=== PATIENT | female | born 1955 | race Caucasian/White ===

== ENCOUNTER 2017-01-25 19:52 | Emergency (ER) | payer MEDICARE, OTHER ==
[2017-01-25] MEDS ORDERED: ACETAMINOPHEN TAB 500 MG TAB PO STA (20:11)
[2017-01-25] MEDS ORDERED: HYDROmorphone 1 MG/ML 1 ML SYRINGE IVP STA (20:11)
[2017-01-25] MEDS ORDERED: IBUPROFEN 600 MG TAB PO STA (20:11)
[2017-01-25] MEDS ORDERED: SODIUM CHLORIDE 0.9% 1,000 ML IV STA (20:11)
[2017-01-25] MEDS ORDERED: ONDANSETRON 4 MG/2 ML VIAL IVP STA (20:11)
[2017-01-25 20:45] LABS: Basophils % (A) 0 %; CHCM 32.1; Eosinophils # (A) 0.1 k/uL (0-0.7); Eosinophils % (A) 1 %; HCT 44.8 % (34.0-46.0); HDW 2.66; HGB 14.7 gm/dL (11.4-16.0); Luc # (Auto) 0.16; Luc % (Auto) 1; Lymphocytes # (A) 1.4 k/uL (1.0-4.8); Lymphocytes % (A) 11 %; MCH 32.8 pg (25.0-35.0); MCHC 32.8 g/dL (31.0-37.0); MCV 100.1 fL (80.0-100.0); Macrocytosis Slight; Mean Platelet Volume 8.3; Monocytes # (A) 0.8 k/uL (0-1.0); Monocytes % (A) 6 %; Neutrophils # (A) 10.4 k/uL (1.3-7.7); Neutrophils % (A) 81 %; RBC 4.48 m/uL (3.80-5.40); RDW 14.9 % (11.5-15.5); WBC 12.8 k/uL (3.8-10.6); WBC (Perox) 13.26
[2017-01-25 20:55] LABS: ALT 41 U/L (9-52); AST 20 U/L (14-36); Alkaline Phosphatase 78 U/L (38-126); Anion Gap 12 mmol/L; Blood Urea Nitrogen 28 mg/dL (7-17); Calcium 9.7 mg/dL (8.4-10.2); Carbon Dioxide 27 mmol/L (22-30); Chloride 101 mmol/L (98-107); Glucose 272 mg/dL (74-99); Non-African American GFR(MDRD) >60 (>60 ml/min/1.73 sqM); Potassium 4.6 mmol/L (3.5-5.1); Sodium 140 mmol/L (137-145); Total Bilirubin 0.8 mg/dL (0.2-1.3); Total Protein 6.4 g/dL (6.3-8.2)
[2017-01-25 20:57] LABS: Appearance,Urine Clear (Clear); Bacteria,Urine Rare /hpf; Bilirubin,Urine Negative (Negative); Glucose,Urine (UA) 4+ (Negative); Ketones,Urine 1+ (Negative); Leukocyte Esterase,Urine Moderate (Negative); Mucus,Urine Rare /hpf; Nitrite,Urine Negative (Negative); PH, Urine 5.5 (5.0-8.0); Particle Count 3409; Protein,Urine Negative (Negative); RBC,Urine 2 /hpf (0-5); Specific Gravity,Urine 1.021 (1.001-1.035); Squamous Epithelial Cell,Urine 2 /hpf (0-4); UA Billing (MACRO vs. MICRO) MICRO; Urobilinogen,Urine <2.0 mg/dL (<2.0); WBC,Urine 14 /hpf (0-5)
--- NOTE | 2017-01-25 22:03 | US ---
EXAMINATION TYPE: US venous doppler duplex LE LT DATE OF EXAM: 01/25/2017 9:51 PM COMPARISON: NONE CLINICAL HISTORY: Pain at ankle since today. 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 SIDE PERFORMED: Left TECHNIQUE: The lower extremity deep venous system is examined utilizing real time linear array sonog mariela with graded compression, doppler sonography and color-flow sonography. VESSELS IMAGED: External Iliac Vein (EIV) Common Femoral Vein Deep Femoral Vein Greater Saphenous Vein * Femoral Vein Popliteal Vein Small Saphenous Vein * Proximal Calf Veins (* superficial vessels) Hypoechoic slightly complex area in left popliteal fossa measuring 2.1 x 0.3 x 1.3 cm; possible gomez cyst versus other etiology. Left Leg: Negative for DVT Grayscale, color doppler, spectral doppler imaging performed of the deep veins of the lower extremiti es. There is normal flow, compressibility, vascular waveforms. IMPRESSION: 1. No sonographic evidence of deep venous thrombosis within the left lower extremity 2. Minimally complex popliteal cyst.
[2017-01-25] MEDS ORDERED: SULFAMETHOX-TMP 800-160MG 1 EACH TAB PO STA (22:33)
--- NOTE | 2017-01-25 22:33 | ED ---
Extremity Problem HPI - General Chief complaint: Extremity Problem,Nontraumatic Stated complaint: L foot swelling Time Seen by Provider: 01/25/17 20:04 Source: patient, family Mode of arrival: ambulatory Limitations: no limitations - History of Present Illness Initial comments: 61 year-old female patient presents to emergency department today for evaluation of left foot pain and swelling. Patient denies any injuries to the extremity. States the pain started this afternoon. She states that the leg feels hot, she is having difficulty walking due to the pain. Patient does have a past medical history significant for DVT. Patient states that a couple days ago she did have a lump appear on her foot, states that it got irritated by her shoe, she states that the lump has gone away. States she also has a wound on her toe however there does appear to be healing. She states that she feels generally achy and believes she may have a fever. She denies any numbness or tingling to the foot. Patient denies any recent rash, shortness breath, chest pain, abdominal pain, nausea, vomiting, diarrhea, constipation, back pain, numbness, tingling, dizziness, weakness, hematuria, dysuria, urinary urgency, urinary frequency, headache, visual changes, or any other complaints. - Related Data Home Medications Medication Instructions Recorded Confirmed Atorvastatin [Lipitor] 20 mg PO DAILY 08/08/15 01/25/17 HYDROcodone/APAP 10-325MG [[place] 1 tab PO Q6H PRN 08/08/15 01/25/17 10-325] Hydrochlorothiazide [Hydrodiuril] 25 mg PO DAILY 08/08/15 01/25/17 Ibuprofen [Motrin] 800 mg PO TID 08/08/15 01/25/17 Insulin Glargine [Lantus] 48 unit SQ DAILY 08/08/15 01/25/17 Levothyroxine Sodium [Unithroid] 150 mcg PO DAILY 08/08/15 01/25/17 Lisinopril 40 mg PO DAILY 08/08/15 01/25/17 Metoprolol Tartrate [Lopressor] 25 mg PO DAILY 08/08/15 01/25/17 buPROPion [Wellbutrin] 150 mg PO BID 08/08/15 01/25/17 metFORMIN HCL 1,000 mg PO BID 08/08/15 01/25/17 sitaGLIPtin PHOSPHATE [Januvia] 25 mg PO DAILY 01/25/17 01/25/17 Previous Rx's Medication Instructions Recorded Sulfamethoxazole/Trimethoprim 2 each PO BID #40 tablet 01/25/17 [Bactrim DS 800-160 mg] Allergies Allergy/AdvReac Type Severity Reaction Status Date / Time No Known Allergies Allergy Verified 01/25/17 20:14 Review of Systems ROS Statement: Those systems with pertinent positive or pertinent negative responses have been documented in the HPI. ROS Other: All systems not noted in ROS Statement are negative. Past Medical History Past Medical History: Diabetes Mellitus, Deep Vein Thrombosis (DVT), Hyperlipidemia, Hypertension, Osteoarthritis (OA), Thyroid Disorder Additional Past Medical History / Comment(s): DVT L Leg History of Any Multi-Drug Resistant Organisms: MRSA Date of last positivie culture/infection: 2013 MDRO Source:: armpit,stomach Past Surgical History: Hysterectomy, Orthopedic Surgery Additional Past Surgical History / Comment(s): Rectocele;hand,ankle and knee surg.; Past Anesthesia/Blood Transfusion Reactions: No Reported Reaction Past Psychological History: No Psychological Hx Reported Smoking Status: Former smoker Past Alcohol Use History: Rare Past Drug Use History: None Reported - Past Family History Brother(s) Family Medical History: Deep Vein Thrombosis (DVT) Mother Family Medical History: Coronary Artery Disease (CAD) Father Family Medical History: Diabetes Mellitus General Exam Limitations: no limitations General appearance: alert, in no apparent distress, other (Well-developed, well- nourished adult female patient in no acute distress. Vital signs upon presentation were temperature 101F, pulse 107, respirations 18, blood pressure 156/76, pulse ox 96% on room air.) Eye exam: Present: normal appearance, PERRL, EOMI. Absent: scleral icterus, conjunctival injection, periorbital swelling ENT exam: Present: normal exam, normal oropharynx, mucous membranes moist, TM's normal bilaterally Neck exam: Present: normal inspection. Absent: tenderness, meningismus, lymphadenopathy Respiratory exam: Present: normal lung sounds bilaterally. Absent: respiratory distress, wheezes, rales, rhonchi, stridor Cardiovascular Exam: Present: regular rate, normal rhythm, normal heart sounds. Absent: systolic murmur, diastolic murmur, rubs, gallop, clicks GI/Abdominal exam: Present: soft, normal bowel sounds. Absent: distended, tenderness, guarding, rebound, rigid Extremities exam: Present: full ROM, normal capillary refill, other (Erythema and tenderness noted to the dorsal aspect of the left foot and ankle. There is a scabbed lesion on the dorsal aspect of the third toe that does appear to be healing. Pedal and posttibial pulses intact and 2+. There is trace pitting edema over both the ankle and the foot. Skin is hot to touch, and warmer than the right foot. Cap refill less than 3 seconds. Full range of motion to the left ankle without limitation.). Absent: tenderness, pedal edema, joint swelling, calf tenderness Neurological exam: Present: alert, oriented X3, CN II-XII intact Psychiatric exam: Present: normal affect, normal mood Skin exam: Present: warm, dry, intact, normal color. Absent: rash Course Vital Signs 01/25/17 01/25/17 01/25/17 19:58 22:03 22:05 Temperature 101 F H 100.7 F H 100.6 F H Pulse Rate 107 H 97 95 Respiratory 18 18 18 Rate Blood Pressure 156/76 146/63 141/66 O2 Sat by Pulse 96 97 Oximetry Medical Decision Making - Medical Decision Making 61-year-old female patient presented for evaluation of left foot pain and swelling. Physical exam did reveal some erythema and swelling to the dorsal aspect of the left foot and ankle. Patient does have a history of DVT to the left leg so ultrasound was performed and was negative for any acute DVT. Did show possible Giron cyst, patient does not have any pain in this area. Vital signs reviewed she did have a white blood cell count 12.8, lactic of 3.0. She was given fluids here in the emergency department. Vital signs did improve prior to discharge. She will be discharged home with a prescription for Bactrim double strength 2 tablets twice daily for 10 days. She was started on this medication here. She does have [place] at home for pain control she is instructed to take this as well as ibuprofen for pain and fever control. She is instructed to follow-up with her primary care physician for recheck in 1-2 days. She is instructed to return here immediately for any new, worsening, or concerning symptoms. She verbalizes understanding and agrees this plan. - Lab Data Result diagrams: 01/25/17 20:33 01/25/17 20:33 Lab Results 01/25/17 01/25/17 01/25/17 Range/Units 20:33 20:33 20:33 WBC 12.8 H (3.8-10.6) k/uL RBC 4.48 (3.80-5.40) m/uL Hgb 14.7 (11.4-16.0) gm/dL Hct 44.8 (34.0-46.0) % MCV 100.1 H (80.0-100.0) fL MCH 32.8 (25.0-35.0) pg MCHC 32.8 (31.0-37.0) g/dL RDW 14.9 (11.5-15.5) % Plt Count 233 (150-450) k/uL Neutrophils % 81 % Lymphocytes % 11 % Monocytes % 6 % Eosinophils % 1 % Basophils % 0 % Neutrophils # 10.4 H (1.3-7.7) k/uL Lymphocytes # 1.4 (1.0-4.8) k/uL Monocytes # 0.8 (0-1.0) k/uL Eosinophils # 0.1 (0-0.7) k/uL Basophils # 0.0 (0-0.2) k/uL Macrocytosis Slight Sodium 140 (137-145) mmol/L Potassium 4.6 (3.5-5.1) mmol/L Chloride 101 (98-107) mmol/L Carbon Dioxide 27 (22-30) mmol/L Anion Gap 12 mmol/L BUN 28 H (7-17) mg/dL Creatinine 0.90 (0.52-1.04) mg/dL Est GFR (MDRD) Af Amer >60 (>60 ml/min/1.73 sqM) Est GFR (MDRD) Non-Af >60 (>60 ml/min/1.73 sqM) Glucose 272 H (74-99) mg/dL Plasma Lactic Acid Amrik 3.0 H* (0.7-2.0) mmol/L Calcium 9.7 (8.4-10.2) mg/dL Total Bilirubin 0.8 (0.2-1.3) mg/dL AST 20 (14-36) U/L ALT 41 (9-52) U/L Alkaline Phosphatase 78 (38-126) U/L Total Protein 6.4 (6.3-8.2) g/dL Albumin 4.0 (3.5-5.0) g/dL Urine Color Urine Appearance (Clear) Urine pH (5.0-8.0) Ur Specific [place] (1.001-1.035) Urine Protein (Negative) Urine Glucose (UA) (Negative) Urine Ketones (Negative) Urine Blood (Negative) Urine Nitrite (Negative) Urine Bilirubin (Negative) Urine Urobilinogen (<2.0) mg/dL Ur Leukocyte Esterase (Negative) Urine RBC (0-5) /hpf Urine WBC (0-5) /hpf Ur Squamous Epith Cells (0-4) /hpf Urine Bacteria (None) /hpf Urine Mucus (None) /hpf 01/25/17 Range/Units 20:49 WBC (3.8-10.6) k/uL RBC (3.80-5.40) m/uL Hgb (11.4-16.0) gm/dL Hct (34.0-46.0) % MCV (80.0-100.0) fL MCH (25.0-35.0) pg MCHC (31.0-37.0) g/dL RDW (11.5-15.5) % Plt Count (150-450) k/uL Neutrophils % % Lymphocytes % % Monocytes % % Eosinophils % % Basophils % % Neutrophils # (1.3-7.7) k/uL Lymphocytes # (1.0-4.8) k/uL Monocytes # (0-1.0) k/uL Eosinophils # (0-0.7) k/uL Basophils # (0-0.2) k/uL Macrocytosis Sodium (137-145) mmol/L Potassium (3.5-5.1) mmol/L Chloride (98-107) mmol/L Carbon Dioxide (22-30) mmol/L Anion Gap mmol/L BUN (7-17) mg/dL Creatinine (0.52-1.04) mg/dL Est GFR (MDRD) Af Amer (>60 ml/min/1.73 sqM) Est GFR (MDRD) Non-Af (>60 ml/min/1.73 sqM) Glucose (74-99) mg/dL Plasma Lactic Acid Amrik (0.7-2.0) mmol/L Calcium (8.4-10.2) mg/dL Total Bilirubin (0.2-1.3) mg/dL AST (14-36) U/L ALT (9-52) U/L Alkaline Phosphatase (38-126) U/L Total Protein (6.3-8.2) g/dL Albumin (3.5-5.0) g/dL Urine Color Yellow Urine Appearance Clear (Clear) Urine pH 5.5 (5.0-8.0) Ur Specific [place] 1.021 (1.001-1.035) Urine Protein Negative (Negative) Urine Glucose (UA) 4+ H (Negative) Urine Ketones 1+ H (Negative) Urine Blood Negative (Negative) Urine Nitrite Negative (Negative) Urine Bilirubin Negative (Negative) Urine Urobilinogen <2.0 (<2.0) mg/dL Ur Leukocyte Esterase Moderate H (Negative) Urine RBC 2 (0-5) /hpf Urine WBC 14 H (0-5) /hpf Ur Squamous Epith Cells 2 (0-4) /hpf Urine Bacteria Rare H (None) /hpf Urine Mucus Rare H (None) /hpf - Radiology Data Radiology results: report reviewed, image reviewed Ultrasound venous Doppler of the left lower extremity report reviewed in its entirety and does show no sonographic evidence of deep venous thrombosis within the left lower extremity. There is a minimally complex popliteal cyst. Impression is by Dr. Recinos. Disposition Clinical Impression: Cellulitis of left foot Disposition: HOME SELF-CARE Condition: Good Instructions: Cellulitis (ED) Additional Instructions: Take antibiotics as directed. Complete prescription in full even if the leg starts to feel better. Keep the leg elevated. Take Tylenol or ibuprofen for pain and fever control. Follow-up with your primary care physician for recheck in 1-2 days. Return here immediately for any new, worsening, or concerning symptoms. Prescriptions: Sulfamethoxazole/Trimethoprim [Bactrim DS 800-160 mg] 2 each PO BID #40 tablet Referrals: Amol Stovall DO [Primary Care Provider] - 1-2 days Time of Disposition: 22:33
[2017-01-25 22:59] VITALS: BP 135/68; PULSE 108
[2017-01-25 23:26] VITALS: RESP 100; TEMP 100.7
== END 2017-01-25 23:09 | disposition home or self-care (01) ==
LOC: EC 19:52
DX: L03.116 Cellulitis of left lower limb (principal); E11.9 Type 2 diabetes mellitus without complications; E78.5 Hyperlipidemia, unspecified; I10 Essential (primary) hypertension; E07.9 Disorder of thyroid, unspecified; M19.90 Unspecified osteoarthritis, unspecified site; Z86.718 Personal history of other venous thrombosis and embolism; Z86.14 Personal history of Methicillin resistant Staphylococcus aureus infection; Z98.890 Other specified postprocedural states; Z87.891 Personal history of nicotine dependence; Z79.1 Long term (current) use of non-steroidal anti-inflammatories (NSAID); Z79.4 Long term (current) use of insulin; Z79.84 Long term (current) use of oral hypoglycemic drugs; Z79.899 Other long term (current) drug therapy
CPT/HCPCS: 99284 ×2; 96374 ×2; 96375 ×2; 36415; 80053; 83605; 85025; 81001; 87040; 87086; 87077; 87186; 93971; J2405; J1170

== ENCOUNTER 2017-01-27 17:55 | Inpatient (IN) | payer MEDICARE ==
[2017-01-27] MEDS ORDERED: SODIUM CHLORIDE 0.9% 1,000 ML IV STA ×2 (18:15)
[2017-01-27] MEDS ORDERED: AMPICILLIN-SULBACTAM 3 GM in SODIUM CHLORIDE 0.9% 100 ML IVPB STA (18:17)
[2017-01-27] MEDS ORDERED: VANCOMYCIN 1,500 MG in SODIUM CHLORIDE 0.9% 250 ML IVPB STA (18:18)
[2017-01-27] MEDS ORDERED: VANCOMYCIN IV PER PHARMACY 1 EACH MISC MISCELLANE PRN (18:18)
[2017-01-27] MEDS ORDERED: KETOROLAC 30 MG/ML 1 ML VIAL IVP STA (18:18)
--- NOTE | 2017-01-27 18:25 | ED ---
Fever HPI - General Chief Complaint: Fever Stated Complaint: Fever, High blood sugar, weakness Time Seen by Provider: 01/27/17 18:09 Source: patient Mode of arrival: wheelchair Limitations: no limitations - History of Present Illness Initial Comments: This 61-year-old white female presents with a fever which started today. Her family relates that she also has been confused and very sleepy which started this morning. She was seen here 2 days ago and treated for a left lower extremity cellulitis. She is placed on Bactrim but the symptoms of her left leg cellulitis have worsened. She does complain of some left lower extremity pain. She denies any cough, shortness breath, chest pain, or urinary symptoms. She does have a history of diabetes and her blood sugar was in the 400s earlier today and 240 prior to arrival. Her temperature at home was 102. No other complaints or modifying factors. - Related Data Home Medications Medication Instructions Recorded Confirmed Atorvastatin [Lipitor] 20 mg PO DAILY 08/08/15 01/27/17 HYDROcodone/APAP 10-325MG [[place] 1 tab PO Q6H PRN 08/08/15 01/27/17 10-325] Hydrochlorothiazide [Hydrodiuril] 25 mg PO DAILY 08/08/15 01/27/17 Ibuprofen [Motrin] 800 mg PO TID PRN 08/08/15 01/27/17 Insulin Glargine [Lantus] 48 unit SQ DAILY 08/08/15 01/27/17 Lisinopril 40 mg PO DAILY 08/08/15 01/25/17 Metoprolol Tartrate [Lopressor] 25 mg PO BID 08/08/15 01/27/17 metFORMIN HCL 1,000 mg PO BID 08/08/15 01/27/17 DULoxetine HCL [Cymbalta] 60 mg PO DAILY 01/27/17 01/27/17 Famotidine 20 mg PO DAILY 01/27/17 01/27/17 Glimepiride [Amaryl] 4 mg PO [id number] 01/27/17 01/27/17 Levothyroxine Sodium [Synthroid] 137 mcg PO DAILY 01/27/17 01/27/17 amLODIPine [Norvasc] 5 mg PO DAILY 01/27/17 01/27/17 sitaGLIPtin [Januvia] 100 mg PO DAILY 01/27/17 01/27/17 Allergies Allergy/AdvReac Type Severity Reaction Status Date / Time No Known Allergies Allergy Verified 01/27/17 19:05 Review of Systems ROS Statement: Those systems with pertinent positive or pertinent negative responses have been documented in the HPI. ROS Other: All systems not noted in ROS Statement are negative. Past Medical History Past Medical History: Diabetes Mellitus, Deep Vein Thrombosis (DVT), Hyperlipidemia, Hypertension, Osteoarthritis (OA), Thyroid Disorder Additional Past Medical History / Comment(s): DVT L Leg History of Any Multi-Drug Resistant Organisms: MRSA Date of last positivie culture/infection: 2013 MDRO Source:: armpit,stomach Past Surgical History: Hysterectomy, Orthopedic Surgery Additional Past Surgical History / Comment(s): Rectocele;hand,ankle and knee surg.; Past Anesthesia/Blood Transfusion Reactions: No Reported Reaction Past Psychological History: No Psychological Hx Reported Smoking Status: Former smoker Past Alcohol Use History: Rare Past Drug Use History: None Reported - Past Family History Brother(s) Family Medical History: Deep Vein Thrombosis (DVT) Mother Family Medical History: Coronary Artery Disease (CAD) Father Family Medical History: Diabetes Mellitus General Exam - General Exam Comments Initial Comments: GENERAL: The patient is well nourished and well hydrated. VITAL SIGNS: Heart rate, blood pressure, respiratory rate reviewed as recorded in nurse's notes. EYES: Pupils are round and reactive. Extraocular movements are intact. No conjunctival / lid redness or swelling. ENT: No external evidence of injury, swelling, or ecchymosis. Airway is patent. Throat is clear. NECK: Nontender. No swelling or evidence of injury. No subcutaneous emphysema. Trachea is midline. No thyroid mass. HEART: Tachycardic her rate but regular. Good peripheral pulses. LUNGS/CHEST: Breath sounds clear and equal bilaterally. No rales, rhonchi, or wheezes. No ecchymosis, subcutaneous emphysema, or tenderness. ABDOMEN: Abdomen soft without tenderness. No palpable masses or organomegaly. No peritoneal signs. No abdominal wall swelling or ecchymosis. EXTREMITIES: There is tenderness, erythema, and swelling noted to the left leg from the mid calf down into the foot. Normal muscle tone and function. No thoracolumbar tenderness. NEUROLOGIC: Sensation is grossly intact. Cranial nerve exam reveals face is symmetrical, tongue is midline, speech is clear. She does answer questions appropriately and does not appear to be confused currently but does appear sleepy at times. SKIN: No abrasions or ecchymosis is noted. No induration or masses noted. There is erythema noted to the left lower extremity but there is no fluctuance identified. PSYCHIATRIC: Alert and oriented. Appropriate behavior and judgment. Limitations: no limitations Course Vital Signs 01/27/17 01/27/17 01/27/17 17:59 19:01 19:08 Temperature 103.3 F H 102.1 F H 101.8 F H Pulse Rate 118 H 103 H Respiratory 20 20 Rate Blood Pressure 163/79 136/81 O2 Sat by Pulse 90 L 95 Oximetry 01/27/17 01/27/17 01/27/17 19:57 22:01 22:10 Temperature 99.4 F 101.6 F H Pulse Rate 95 93 Respiratory 20 18 Rate Blood Pressure 107/58 99/52 116/54 O2 Sat by Pulse 92 L 94 L Oximetry Medical Decision Making - Medical Decision Making The patient was seen and examined. All diagnostics are reviewed. She does have a fever of 103 and receives some Tylenol as well as some Toradol. The EKG shows a sinus tachycardia at a rate of 107. There is a right bundle-branch block and left axis deviation. There is no ST elevation noted. The KS interval is 170, QRS duration is 150, and the QTc interval is 51. It appears that she does have a left lower extremity cellulitis and has failed outpatient treatment. Some Unasyn and vancomycin is started. An EKG was done which shows a sinus tachycardia at a rate of 107. There is a right bundle-branch block and left axis deviation noted. There is no acute ST elevation. The KS interval is 170, QRS duration is 150, and QTC intervals 512. She was thoroughly hydrated. All diagnostics are reviewed to this point. The laboratory does show some electrolyte abnormalities, elevation of the lactic acid, mild leukocytosis, and hyperglycemia. The chest x-ray does not show any pneumonia but possible mild pulmonary vascular congestion. It is felt as though she does have a significant cellulitis and has failed outpatient treatment and will require admission to the hospital for further IV antibiotics. They are agreeable to this plan. Case will be discussed with internal medicine shortly and she is admitted for full admitted for further care. - Lab Data Result diagrams: 01/27/17 18:26 01/27/17 18:26 Lab Results 01/27/17 01/27/17 01/27/17 Range/Units 18:26 18:26 18:26 WBC 11.5 H (3.8-10.6) k/uL RBC 4.42 (3.80-5.40) m/uL Hgb 14.2 (11.4-16.0) gm/dL Hct 43.1 (34.0-46.0) % MCV 97.5 (80.0-100.0) fL MCH 32.1 (25.0-35.0) pg MCHC 32.9 (31.0-37.0) g/dL RDW 14.7 (11.5-15.5) % Plt Count 146 L (150-450) k/uL Neutrophils % 86 % Lymphocytes % 7 % Monocytes % 5 % Eosinophils % 0 % Basophils % 0 % Neutrophils # 9.9 H (1.3-7.7) k/uL Lymphocytes # 0.8 L (1.0-4.8) k/uL Monocytes # 0.6 (0-1.0) k/uL Eosinophils # 0.0 (0-0.7) k/uL Basophils # 0.0 (0-0.2) k/uL Sodium 129 L (137-145) mmol/L Potassium 3.9 (3.5-5.1) mmol/L Chloride 94 L (98-107) mmol/L Carbon Dioxide 21 L (22-30) mmol/L Anion Gap 14 mmol/L BUN 23 H (7-17) mg/dL Creatinine 0.90 (0.52-1.04) mg/dL Est GFR (MDRD) Af Amer >60 (>60 ml/min/1.73 sqM) Est GFR (MDRD) Non-Af >60 (>60 ml/min/1.73 sqM) Glucose 245 H (74-99) mg/dL Estimated Ave Glu mg/dL mg/dL Hemoglobin A1c (4.2-6.1) % Lactic Ac Sepsis Rflx Plasma Lactic Acid Amrik 3.7 H* (0.7-2.0) mmol/L Calcium 9.3 (8.4-10.2) mg/dL Total Bilirubin 0.7 (0.2-1.3) mg/dL AST 24 (14-36) U/L ALT 35 (9-52) U/L Alkaline Phosphatase 112 (38-126) U/L Total Protein 6.0 L (6.3-8.2) g/dL Albumin 3.5 (3.5-5.0) g/dL Urine Color Urine Appearance (Clear) Urine pH (5.0-8.0) Ur Specific [place] (1.001-1.035) Urine Protein (Negative) Urine Glucose (UA) (Negative) Urine Ketones (Negative) Urine Blood (Negative) Urine Nitrite (Negative) Urine Bilirubin (Negative) Urine Urobilinogen (<2.0) mg/dL Ur Leukocyte Esterase (Negative) Urine WBC (0-5) /hpf Amorphous Sediment (None) /hpf Urine Mucus (None) /hpf Acetone, Qual (Negative) 01/27/17 01/27/17 01/27/17 Range/Units 18:26 18:26 18:58 WBC (3.8-10.6) k/uL RBC (3.80-5.40) m/uL Hgb (11.4-16.0) gm/dL Hct (34.0-46.0) % MCV (80.0-100.0) fL MCH (25.0-35.0) pg MCHC (31.0-37.0) g/dL RDW (11.5-15.5) % Plt Count (150-450) k/uL Neutrophils % % Lymphocytes % % Monocytes % % Eosinophils % % Basophils % % Neutrophils # (1.3-7.7) k/uL Lymphocytes # (1.0-4.8) k/uL Monocytes # (0-1.0) k/uL Eosinophils # (0-0.7) k/uL Basophils # (0-0.2) k/uL Sodium (137-145) mmol/L Potassium (3.5-5.1) mmol/L Chloride (98-107) mmol/L Carbon Dioxide (22-30) mmol/L Anion Gap mmol/L BUN (7-17) mg/dL Creatinine (0.52-1.04) mg/dL Est GFR (MDRD) Af Amer (>60 ml/min/1.73 sqM) Est GFR (MDRD) Non-Af (>60 ml/min/1.73 sqM) Glucose (74-99) mg/dL Estimated Ave Glu mg/dL 146 mg/dL Hemoglobin A1c 6.7 H (4.2-6.1) % Lactic Ac Sepsis Rflx Y Plasma Lactic Acid Amrik (0.7-2.0) mmol/L Calcium (8.4-10.2) mg/dL Total Bilirubin (0.2-1.3) mg/dL AST (14-36) U/L ALT (9-52) U/L Alkaline Phosphatase (38-126) U/L Total Protein (6.3-8.2) g/dL Albumin (3.5-5.0) g/dL Urine Color Urine Appearance (Clear) Urine pH (5.0-8.0) Ur Specific [place] (1.001-1.035) Urine Protein (Negative) Urine Glucose (UA) (Negative) Urine Ketones (Negative) Urine Blood (Negative) Urine Nitrite (Negative) Urine Bilirubin (Negative) Urine Urobilinogen (<2.0) mg/dL Ur Leukocyte Esterase (Negative) Urine WBC (0-5) /hpf Amorphous Sediment (None) /hpf Urine Mucus (None) /hpf Acetone, Qual Negative (Negative) 01/27/17 Range/Units 19:31 WBC (3.8-10.6) k/uL RBC (3.80-5.40) m/uL Hgb (11.4-16.0) gm/dL Hct (34.0-46.0) % MCV (80.0-100.0) fL MCH (25.0-35.0) pg MCHC (31.0-37.0) g/dL RDW (11.5-15.5) % Plt Count (150-450) k/uL Neutrophils % % Lymphocytes % % Monocytes % % Eosinophils % % Basophils % % Neutrophils # (1.3-7.7) k/uL Lymphocytes # (1.0-4.8) k/uL Monocytes # (0-1.0) k/uL Eosinophils # (0-0.7) k/uL Basophils # (0-0.2) k/uL Sodium (137-145) mmol/L Potassium (3.5-5.1) mmol/L Chloride (98-107) mmol/L Carbon Dioxide (22-30) mmol/L Anion Gap mmol/L BUN (7-17) mg/dL Creatinine (0.52-1.04) mg/dL Est GFR (MDRD) Af Amer (>60 ml/min/1.73 sqM) Est GFR (MDRD) Non-Af (>60 ml/min/1.73 sqM) Glucose (74-99) mg/dL Estimated Ave Glu mg/dL mg/dL Hemoglobin A1c (4.2-6.1) % Lactic Ac Sepsis Rflx Plasma Lactic Acid Amrik (0.7-2.0) mmol/L Calcium (8.4-10.2) mg/dL Total Bilirubin (0.2-1.3) mg/dL AST (14-36) U/L ALT (9-52) U/L Alkaline Phosphatase (38-126) U/L Total Protein (6.3-8.2) g/dL Albumin (3.5-5.0) g/dL Urine Color Yellow Urine Appearance Clear (Clear) Urine pH 6.5 (5.0-8.0) Ur Specific [place] 1.015 (1.001-1.035) Urine Protein 1+ H (Negative) Urine Glucose (UA) 4+ H (Negative) Urine Ketones 2+ H (Negative) Urine Blood Negative (Negative) Urine Nitrite Negative (Negative) Urine Bilirubin Negative (Negative) Urine Urobilinogen <2.0 (<2.0) mg/dL Ur Leukocyte Esterase Negative (Negative) Urine WBC 2 (0-5) /hpf Amorphous Sediment Occasional H (None) /hpf Urine Mucus Occasional H (None) /hpf Acetone, Qual (Negative) Disposition Clinical Impression: Failure of outpatient treatment, Confusion, Fever, Hypoxia, Sinus tachycardia, Cellulitis of left leg, Hyperglycemia due to type 2 diabetes mellitus, Hyponatremia, Hypochloremia, Lactic acidosis, Dehydration Disposition: ADMITTED IP TO THIS [facility] Condition: Good Time of Disposition: 10:00 Decision Date: 01/27/17 Decision Time: 10:00
[2017-01-27 18:32] LABS: Basophils % (A) 0 %; CH 31.8; CHCM 32.7; Eosinophils % (A) 0 %; HCT 43.1 % (34.0-46.0); HDW 2.64; HGB 14.2 gm/dL (11.4-16.0); Luc # (Auto) 0.17; Luc % (Auto) 1; Lymphocytes # (A) 0.8 k/uL (1.0-4.8); Lymphocytes % (A) 7 %; MCH 32.1 pg (25.0-35.0); MCHC 32.9 g/dL (31.0-37.0); MCV 97.5 fL (80.0-100.0); Mean Platelet Volume 8.5; Monocytes # (A) 0.6 k/uL (0-1.0); Monocytes % (A) 5 %; Neutrophils # (A) 9.9 k/uL (1.3-7.7); Neutrophils % (A) 86 %; RBC 4.42 m/uL (3.80-5.40); RDW 14.7 % (11.5-15.5); WBC 11.5 k/uL (3.8-10.6); WBC (Perox) 11.41
[2017-01-27 18:46] LABS: ALT 35 U/L (9-52); AST 24 U/L (14-36); Alkaline Phosphatase 112 U/L (38-126); Anion Gap 14 mmol/L; Blood Urea Nitrogen 23 mg/dL (7-17); Calcium 9.3 mg/dL (8.4-10.2); Carbon Dioxide 21 mmol/L (22-30); Chloride 94 mmol/L (98-107); Glucose 245 mg/dL (74-99); Non-African American GFR(MDRD) >60 (>60 ml/min/1.73 sqM); Potassium 3.9 mmol/L (3.5-5.1); Sodium 129 mmol/L (137-145); Total Bilirubin 0.7 mg/dL (0.2-1.3)
--- NOTE | 2017-01-27 18:58 | XR ---
EXAMINATION TYPE: XR chest 2V DATE OF EXAM: 01/27/2017 COMPARISON: Chest x-ray July 23, 2012. HISTORY: Fever and pain. TECHNIQUE: Frontal and lateral views of the chest are obtained. FINDINGS: Low lung volumes are redemonstrated. There is suspected mild central vascular congestion. There is no focal air space opacity, pleural effusion, or pneumothorax seen. The cardiac silhouette size is within normal limits. The osseous structures are somewhat demineralized. IMPRESSION: Mild central vascular congestion. No suspicious focal infiltrate.
[2017-01-27] MEDS ORDERED: HYDROmorphone 0.5 MG/0.5 ML SYRINGE IVP PRN (19:47)
[2017-01-27] MEDS ORDERED: IBUPROFEN 400 MG TAB PO PRN (19:47)
[2017-01-27] MEDS ORDERED: ONDANSETRON 4 MG/2 ML VIAL IVP PRN (19:47)
[2017-01-27] MEDS ORDERED: NALOXONE 0.4 MG/ML 1 ML VIAL IV PRN (19:47)
[2017-01-27 19:50] LABS: Amorphous Sediment,Urine Occasional /hpf; Appearance,Urine Clear (Clear); Bilirubin,Urine Negative (Negative); Glucose,Urine (UA) 4+ (Negative); Leukocyte Esterase,Urine Negative (Negative); Mucus,Urine Occasional /hpf; Nitrite,Urine Negative (Negative); PH, Urine 6.5 (5.0-8.0); Particle Count 829; Protein,Urine 1+ (Negative); Specific Gravity,Urine 1.015 (1.001-1.035); UA Billing (MACRO vs. MICRO) MICRO; Urobilinogen,Urine <2.0 mg/dL (<2.0); WBC,Urine 2 /hpf (0-5)
[2017-01-27 19:51] LABS: Ketones,Urine 2+ (Negative)
[2017-01-27 22:05] LABS: Hemoglobin A1C 6.7 % (4.2-6.1)
[2017-01-27 22:48] VITALS: BMI 37.8
[2017-01-27] MEDS: METOPROLOL TARTRATE 25 MG TAB PO SCH (23:18)
[2017-01-27] MEDS: INSULIN LISPRO (humaLOG) 300 UNIT/3 ML VIAL SQ SCH (23:22)
[2017-01-27 23:32] LABS: Glucose,Whole Blood 131 mg/dL (75-99)
[2017-01-27] MEDS: AMPICILLIN-SULBACTAM 3 GM in SODIUM CHLORIDE 0.9% 100 ML IVPB SCH (23:33)
[2017-01-28] MEDS: ACETAMINOPHEN TAB 325 MG TAB PO PRN ×2 (03:43→22:59)
[2017-01-28 04:15] LABS: ALT 37 U/L (9-52); AST 21 U/L (14-36); Alkaline Phosphatase 89 U/L (38-126); Anion Gap 8 mmol/L; Blood Urea Nitrogen 25 mg/dL (7-17); Calcium 8.4 mg/dL (8.4-10.2); Carbon Dioxide 25 mmol/L (22-30); Chloride 99 mmol/L (98-107); Glucose 122 mg/dL (74-99); Non-African American GFR(MDRD) 57 (>60 ml/min/1.73 sqM); Potassium 3.8 mmol/L (3.5-5.1); Sodium 132 mmol/L (137-145); Total Bilirubin 0.4 mg/dL (0.2-1.3); Total Protein 5.1 g/dL (6.3-8.2)
[2017-01-28 04:17] LABS: Basophils % (A) 0 %; CH 32.5; CHCM 33.1; Eosinophils % (A) 0 %; HCT 37.6 % (34.0-46.0); HDW 2.62; HGB 12.4 gm/dL (11.4-16.0); Luc # (Auto) 0.12; Luc % (Auto) 2; Lymphocytes # (A) 0.9 k/uL (1.0-4.8); Lymphocytes % (A) 12 %; MCH 32.6 pg (25.0-35.0); MCV 98.7 fL (80.0-100.0); Mean Platelet Volume 9.4; Monocytes # (A) 0.4 k/uL (0-1.0); Monocytes % (A) 5 %; Neutrophils # (A) 5.9 k/uL (1.3-7.7); Neutrophils % (A) 81 %; RDW 15.6 % (11.5-15.5); WBC 7.4 k/uL (3.8-10.6); WBC (Perox) 7.77
[2017-01-28] MEDS: AMPICILLIN-SULBACTAM 3 GM in SODIUM CHLORIDE 0.9% 100 ML IVPB SCH ×2 (05:02→12:28)
[2017-01-28] MEDS ORDERED: VANCOMYCIN 1,500 MG in SODIUM CHLORIDE 0.9% 250 ML IVPB SCH (06:00)
[2017-01-28] MEDS: LEVOTHYROXINE 137 MCG TAB PO SCH (06:06)
[2017-01-28] MEDS ORDERED: GLIMEPIRIDE 4 MG TAB PO SCH (07:30)
[2017-01-28 07:36] LABS: Glucose,Whole Blood 114 mg/dL (75-99)
[2017-01-28] MEDS: LINAGLIPTIN 5 MG TABLET PO SCH (08:27)
[2017-01-28] MEDS: INSULIN LISPRO (humaLOG) 300 UNIT/3 ML VIAL SQ SCH ×4 (08:27→21:37)
[2017-01-28] MEDS: DULoxetine HCL 60 MG CAPSULE.DR PO SCH (08:27)
[2017-01-28] MEDS: METOPROLOL TARTRATE 25 MG TAB PO SCH ×2 (08:27→21:39)
[2017-01-28] MEDS: INSULIN GLARGINE 100 UNIT/ML 10 ML VIAL SQ SCH (08:28)
[2017-01-28] MEDS ORDERED: HYDROCHLOROTHIAZIDE 25 MG TAB PO SCH (09:00)
[2017-01-28] MEDS ORDERED: ENOXAPARIN 40 MG/0.4 ML SYRINGE SQ SCH (09:00)
[2017-01-28] MEDS ORDERED: amLODIPine 5 MG TAB PO SCH (09:00)
[2017-01-28] MEDS ORDERED: ATORVASTATIN 20 MG TAB PO SCH (09:00)
[2017-01-28] MEDS ORDERED: PANTOPRAZOLE 40 MG/10 ML VIAL IV SCH (09:00)
[2017-01-28 12:14] LABS: Glucose,Whole Blood 140 mg/dL (75-99)
[2017-01-28] MEDS ORDERED: DIPH,PERTUS(ACELL)TETVAC-LF 0.5 ML VIAL IM ONE (12:51)
--- NOTE | 2017-01-28 13:12 | P.CONS ---
History of Present Illness - Reason for Consult Consult date: 01/28/17 Gram positive bacteremia - History of Present Illness This is a 61-year-old female who is well-known to ID service and was recently seen in the office regarding clearance for right knee arthroplasty. Patient did not have any difficulties at that time and was cleared for surgery which was to be scheduled. Patient states that she had onset of pain, redness and swelling to the left lower extremity on January 25 and came into [facility] emergency center for evaluation. She was diagnosed with cellulitis and placed on Bactrim. She states the pain, redness and swelling continued to worsen despite taking Bactrim. She came back to [facility] emergency center on January 27. She was positive for signs of sepsis with temperature 103.3, tachycardia, lactic acid was initially 3.7 and is now 1.9. Chest x-ray showed mild central vascular congestion with no infiltrate. Patient states her blood sugar has been running very high which is abnormal for her as her hemoglobin A1c is 6.7. Albumin noted be 2.7, sodium 129. Acetone was negative. Urinalysis was clear with nitrate and leukoesterase negative. Patient denies any urinary symptoms. She does states she had vomiting a couple days ago but none at this time. She has decreased appetite and mild nausea. She also complains of significant weakness and feeling tired. She does have some shortness of breath but no cough or sputum production and no chest pain. She is on oxygen at this time but not on oxygen at home. Patient was started on Unasyn and vancomycin and admitted to the [facility] floor. 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 Gordon. Patient states that she has had no improvement of the redness and edema in the left leg and it feels actually worse from when she came in. A venous Doppler study has been done and report is pending with prior history of DVT in the left leg several years ago and had completed a course of anticoagulation at that time. Patient also states that her cat scratched her leg and she has history of nonhealing wound to the left lower extremity for which she followed with Dr. Huff until healedwhich was greater than 1 year ago. Review of Systems All systems: negative Constitutional: Reports anorexia, Reports chills, Reports fatigue, Reports fever , Reports lethargy, Reports malaise, Reports poor appetite, Reports sweats, Reports weakness Eyes: denies blurred vision, denies pain Ears, nose, mouth and throat: Denies dental pain, Denies headache, Denies mouth pain, Denies sore throat, Denies vertigo Cardiovascular: Reports dyspnea on exertion, Reports leg edema, Denies chest pain, Denies edema, Denies lightheadedness, Denies palpitations, Denies shortness of breath, Denies syncope Respiratory: Denies cough, Denies cough with sputum, Denies dyspnea, Denies excessive sputum, Denies hemoptysis, Denies home oxygen Gastrointestinal: Reports nausea, Reports vomiting, Denies abdominal pain, Denies diarrhea Genitourinary: Denies dysuria, Denies hematuria, Denies urgency, Denies urinary frequency Musculoskeletal: Denies myalgias Integumentary: Reports color changes, Reports darkening of skin, Reports wounds , Denies pruritus, Denies rash Neurological: Denies numbness, Denies weakness Psychiatric: Denies anxiety, Denies depression Endocrine: Denies fatigue, Denies weight change Past Medical History Past Medical History: Diabetes Mellitus, Deep Vein Thrombosis (DVT), Hyperlipidemia, Hypertension, Osteoarthritis (OA), Thyroid Disorder Additional Past Medical History / Comment(s): DVT L Leg History of Any Multi-Drug Resistant Organisms: MRSA Year Discovered:: 2013 MDRO Source:: armpit,stomach Past Surgical History: Hysterectomy, Orthopedic Surgery Additional Past Surgical History / Comment(s): Rectocele;hand,ankle and knee surg.; Past Anesthesia/Blood Transfusion Reactions: No Reported Reaction Past Psychological History: No Psychological Hx Reported Smoking Status: Former smoker Past Alcohol Use History: Rare Additional Past Alcohol Use History / Comment(s): Patient smoked briefly only as a teenager. She denies any medical marijuana, marijuana, street drug or alcohol use. She lives at home with her and they have 3 dogs and 2 cats in the home. She is currently unemployed. Past Drug Use History: None Reported - Past Family History Brother(s) Family Medical History: Deep Vein Thrombosis (DVT) Mother Family Medical History: Coronary Artery Disease (CAD) Father Family Medical History: Diabetes Mellitus Medications and Allergies Home Medications Medication Instructions Recorded Confirmed Type Atorvastatin [Lipitor] 20 mg PO DAILY 04/13/16 10/03/17 History HYDROcodone/APAP 10-325MG [[place] 1 tab PO Q6H PRN 08/08/15 01/27/17 History 10-325] Hydrochlorothiazide [Hydrodiuril] 25 mg PO DAILY 08/08/15 01/27/17 History Ibuprofen [Motrin] 800 mg PO TID PRN 08/08/15 01/28/17 History Insulin Glargine [Lantus] 48 unit SQ DAILY 08/08/15 01/27/17 History Metoprolol Tartrate [Lopressor] 25 mg PO BID 08/08/15 01/27/17 History metFORMIN HCL 1,000 mg PO BID 08/08/15 01/28/17 History DULoxetine HCL [Cymbalta] 60 mg PO DAILY 01/27/17 01/27/17 History Famotidine 20 mg PO DAILY 01/27/17 01/27/17 History Glimepiride [Amaryl] 4 mg PO AC-[id number] 01/27/17 01/27/17 History Levothyroxine Sodium [Synthroid] 137 mcg PO DAILY 01/27/17 01/27/17 History amLODIPine [Norvasc] 5 mg PO DAILY 01/27/17 01/27/17 History sitaGLIPtin [Januvia] 100 mg PO DAILY 01/27/17 01/27/17 History Allergies Allergy/AdvReac Type Severity Reaction Status Date / Time No Known Allergies Allergy Verified 01/27/17 19:05 Physical Exam Vitals: Vital Signs Temp Pulse Pulse Resp BP BP Pulse Ox 01/28/17 06:18 98.9 F 94 14 125/68 95 01/28/17 05:07 101.3 F H 01/28/17 03:30 103.0 F H 01/27/17 23:00 100.3 F H 96 16 100/62 97 01/27/17 22:10 116/54 01/27/17 22:01 101.6 F H 93 18 99/52 94 L 01/27/17 19:57 99.4 F 95 20 107/58 92 L 01/27/17 19:08 101.8 F H 103 H 20 136/81 95 01/27/17 19:01 102.1 F H 01/27/17 17:59 103.3 F H 118 H 20 163/79 90 L Intake and Output 01/27/17 01/28/17 01/28/17 22:59 06:59 14:59 Intake Total 1000 Output Total 200 Balance 800 Intake: Amount of Fluid Infused ( 1000 ml) Output: Urine 200 Straight 200 Other: # Voids 1 Weight 99.79 kg Gen: This is a morbidly obese 61-year-old female. She is found in bed and appears to be comfortable. No acute distress noted. HEENT: Head is atraumatic, normocephalic. Pupils equal, round. Sclerae is anicteric. Conjunctiva pink. Mucous members of the mouth are moist. No thrush noted. NECK: Supple. No JVD. No lymphadenopathy. No thyromegaly. LUNGS: Clear to auscultation. No wheezes or rhonchi. No intercostal retractions. HEART: Regular rate and rhythm. No murmur. ABDOMEN: Soft. Obese. Bowel sounds are present. No masses. No tenderness. No redness under abdominal folds. EXTREMITIES: 3+ pedal edema to the left foot and lower extremity with erythema extending to below the knee with warmth and extreme tenderness to touch. Patient has healing wound to the fourth toe dorsal surface. Old wounds noted. No active drainage. Dorsalis pedis is +2 bilaterally. Right foot has trace pedal edema. There is mild erythema on the posterior area above the ankle. No warmth noted to this area. NEUROLOGICAL: Patient is awake, alert and oriented x3. Cranial nerves 2 through 12 are grossly intact. Results Results: Laboratory Results WBC 7.4 k/uL (3.8-10.6) 01/28/17 03:51 RBC 3.80 m/uL (3.80-5.40) 01/28/17 03:51 Hgb 12.4 gm/dL (11.4-16.0) 01/28/17 03:51 Hct 37.6 % (34.0-46.0) 01/28/17 03:51 MCV 98.7 fL (80.0-100.0) 01/28/17 03:51 MCH 32.6 pg (25.0-35.0) 01/28/17 03:51 MCHC 33.0 g/dL (31.0-37.0) 01/28/17 03:51 RDW 15.6 % (11.5-15.5) H 01/28/17 03:51 Plt Count 124 k/uL (150-450) L 01/28/17 03:51 Neutrophils % 81 % 01/28/17 03:51 Lymphocytes % 12 % 01/28/17 03:51 Monocytes % 5 % 01/28/17 03:51 Eosinophils % 0 % 01/28/17 03:51 Basophils % 0 % 01/28/17 03:51 Neutrophils # 5.9 k/uL (1.3-7.7) 01/28/17 03:51 Lymphocytes # 0.9 k/uL (1.0-4.8) L 01/28/17 03:51 Monocytes # 0.4 k/uL (0-1.0) 01/28/17 03:51 Eosinophils # 0.0 k/uL (0-0.7) 01/28/17 03:51 Basophils # 0.0 k/uL (0-0.2) 01/28/17 03:51 Sodium 132 mmol/L (137-145) L 01/28/17 03:51 Potassium 3.8 mmol/L (3.5-5.1) 01/28/17 03:51 Chloride 99 mmol/L (98-107) 01/28/17 03:51 Carbon Dioxide 25 mmol/L (22-30) 01/28/17 03:51 Anion Gap 8 mmol/L 01/28/17 03:51 BUN 25 mg/dL (7-17) H 01/28/17 03:51 Creatinine 1.00 mg/dL (0.52-1.04) 01/28/17 03:51 Est GFR (MDRD) Af Amer >60 (>60 ml/min/1.73 sqM) 01/28/17 03:51 Est GFR (MDRD) Non-Af 57 (>60 ml/min/1.73 sqM) 01/28/17 03:51 Glucose 122 mg/dL (74-99) H 01/28/17 03:51 POC Glucose (mg/dL) 140 mg/dL (75-99) H 01/28/17 12:10 POC Glu [employer] ID AndrewLibian 01/28/17 12:[address] Glu mg/dL 146 mg/dL 01/27/17 18:26 Hemoglobin A1c 6.7 % (4.2-6.1) H 01/27/17 18:26 Lactic Ac Sepsis Rflx Y 01/27/17 18:58 Plasma Lactic Acid Amrik 1.9 mmol/L (0.7-2.0) 01/28/17 03:51 Calcium 8.4 mg/dL (8.4-10.2) 01/28/17 03:51 Total Bilirubin 0.4 mg/dL (0.2-1.3) 01/28/17 03:51 AST 21 U/L (14-36) 01/28/17 03:51 ALT 37 U/L (9-52) 01/28/17 03:51 Alkaline Phosphatase 89 U/L (38-126) 01/28/17 03:51 Total Protein 5.1 g/dL (6.3-8.2) L 01/28/17 03:51 Albumin 2.7 g/dL (3.5-5.0) L 01/28/17 03:51 Urine Color Yellow 01/27/17 19:31 Urine Appearance Clear (Clear) 01/27/17 19:31 Urine pH 6.5 (5.0-8.0) 01/27/17 19:31 Ur Specific [place] 1.015 (1.001-1.035) 01/27/17 19:31 Urine Protein 1+ (Negative) H 01/27/17 19:31 Urine Glucose (UA) 4+ (Negative) H 01/27/17 19:31 Urine Ketones 2+ (Negative) H 01/27/17 19:31 Urine Blood Negative (Negative) 01/27/17 19:31 Urine Nitrite Negative (Negative) 01/27/17 19:31 Urine Bilirubin Negative (Negative) 01/27/17 19:31 Urine Urobilinogen <2.0 mg/dL (<2.0) 01/27/17 19:31 Ur Leukocyte Esterase Negative (Negative) 01/27/17 19:31 Urine WBC 2 /hpf (0-5) 01/27/17 19:31 Amorphous Sediment Occasional /hpf (None) H 01/27/17 19:31 Urine Mucus Occasional /hpf (None) H 01/27/17 19:31 Acetone, Qual Negative (Negative) 01/27/17 18:26 CBC & Chem 7: 10/04/17 03:51 01/28/17 03:51 Labs: Abnormal Lab Results - Last 24 Hours (Table) 01/27/17 01/27/17 01/27/17 Range/Units 18:26 18:26 18:26 WBC 11.5 H (3.8-10.6) k/uL RDW (11.5-15.5) % Plt Count 146 L (150-450) k/uL Neutrophils # 9.9 H (1.3-7.7) k/uL Lymphocytes # 0.8 L (1.0-4.8) k/uL Sodium 129 L (137-145) mmol/L Chloride 94 L (98-107) mmol/L Carbon Dioxide 21 L (22-30) mmol/L BUN 23 H (7-17) mg/dL Glucose 245 H (74-99) mg/dL POC Glucose (mg/dL) (75-99) mg/dL Hemoglobin A1c (4.2-6.1) % Plasma Lactic Acid Marik 3.7 H* (0.7-2.0) mmol/L Total Protein 6.0 L (6.3-8.2) g/dL Albumin (3.5-5.0) g/dL Urine Protein (Negative) Urine Glucose (UA) (Negative) Urine Ketones (Negative) Amorphous Sediment (None) /hpf Urine Mucus (None) /hpf 01/27/17 01/27/17 01/27/17 Range/Units 18:26 19:31 22:39 WBC (3.8-10.6) k/uL RDW (11.5-15.5) % Plt Count (150-450) k/uL Neutrophils # (1.3-7.7) k/uL Lymphocytes # (1.0-4.8) k/uL Sodium (137-145) mmol/L Chloride (98-107) mmol/L Carbon Dioxide (22-30) mmol/L BUN (7-17) mg/dL Glucose (74-99) mg/dL POC Glucose (mg/dL) (75-99) mg/dL Hemoglobin A1c 6.7 H (4.2-6.1) % Plasma Lactic Acid Amrik 3.0 H* (0.7-2.0) mmol/L Total Protein (6.3-8.2) g/dL Albumin (3.5-5.0) g/dL Urine Protein 1+ H (Negative) Urine Glucose (UA) 4+ H (Negative) Urine Ketones 2+ H (Negative) Amorphous Sediment Occasional H (None) /hpf Urine Mucus Occasional H (None) /hpf 01/27/17 01/28/17 01/28/17 Range/Units 23:21 03:51 03:51 WBC (3.8-10.6) k/uL RDW 15.6 H (11.5-15.5) % Plt Count 124 L (150-450) k/uL Neutrophils # (1.3-7.7) k/uL Lymphocytes # 0.9 L (1.0-4.8) k/uL Sodium 132 L (137-145) mmol/L Chloride (98-107) mmol/L Carbon Dioxide (22-30) mmol/L BUN 25 H (7-17) mg/dL Glucose 122 H (74-99) mg/dL POC Glucose (mg/dL) 131 H (75-99) mg/dL Hemoglobin A1c (4.2-6.1) % Plasma Lactic Acid Amrik (0.7-2.0) mmol/L Total Protein 5.1 L (6.3-8.2) g/dL Albumin 2.7 L (3.5-5.0) g/dL Urine Protein (Negative) Urine Glucose (UA) (Negative) Urine Ketones (Negative) Amorphous Sediment (None) /hpf Urine Mucus (None) /hpf 01/28/17 01/28/17 Range/Units 07:04 12:10 WBC (3.8-10.6) k/uL RDW (11.5-15.5) % Plt Count (150-450) k/uL Neutrophils # (1.3-7.7) k/uL Lymphocytes # (1.0-4.8) k/uL Sodium (137-145) mmol/L Chloride (98-107) mmol/L Carbon Dioxide (22-30) mmol/L BUN (7-17) mg/dL Glucose (74-99) mg/dL POC Glucose (mg/dL) 114 H 140 H (75-99) mg/dL Hemoglobin A1c (4.2-6.1) % Plasma Lactic Acid Amrik (0.7-2.0) mmol/L Total Protein (6.3-8.2) g/dL Albumin (3.5-5.0) g/dL Urine Protein (Negative) Urine Glucose (UA) (Negative) Urine Ketones (Negative) Amorphous Sediment (None) /hpf Urine Mucus (None) /hpf Microbiology - Last 24 Hours (Table) 01/27/17 18:26 Blood Culture Gram Stain - Preliminary Blood 01/27/17 18:26 Blood Culture - Final Blood 01/27/17 19:31 Urine Culture - Preliminary Urine,Catheterized Assessment and Plan Plan: This is a 61-year-old female patient well-known to ID service admitted to the hospital with sepsis and left lower extremity cellulitis along with gram-positive bacteremia and past history of MRSA skin infections. Patient has been on Unasyn and vancomycin with no improvement. Daptomycin will be started instead. Tetanus status will be updated. Local wound care will be addressed with Silvadene wraps and continue elevation of the legs. Repeat blood culture has been ordered for this afternoon and tomorrow morning by Dr. Gordon. Cultures will be monitored. Continue supportive care. Further recommendations as patient progresses. The above dictated assessment and findings were discussed with Dr. Alexandra. The impression and plan of care have been directed as dictated. Tia Vu nurse practitioner acting as scribe for Dr. Alexandra.
--- NOTE | 2017-01-28 13:25 | US ---
EXAMINATION TYPE: US venous doppler duplex LE LT DATE OF EXAM: 01/28/2017 11:54 AM COMPARISON: EXAM DONE 01-25-17 CLINICAL HISTORY: swelling, redness, pain, rule out DVT. SIDE PERFORMED: Left TECHNIQUE: The lower extremity deep venous system is examined utilizing real time linear array sonog mariela with graded compression, doppler sonography and color-flow sonography. VESSELS IMAGED: External Iliac Vein (EIV) Common Femoral Vein Deep Femoral Vein Greater Saphenous Vein * Femoral Vein Popliteal Vein Small Saphenous Vein * Proximal Calf Veins (* superficial vessels) Extensive swelling left leg. Large body habitus. Left Leg: On today's study there appears to be some non-occluding thrombus in the proximal and mid popliteal , also in the SSV. This was not present on study 3 days prior. This preliminary finding given to Dr. Gordon, he came in to see patient as tech was finishing test. IMPRESSION: New nonocclusive thrombus within the proximal and mid left lower extremity popliteal vein as well as within the saphenous vein.
[2017-01-28] MEDS: DAPTOmycin 500 MG in SODIUM CHLORIDE 0.9% 50 ML IV SCH (14:21)
--- NOTE | 2017-01-28 15:33 | P.HPIM ---
History of Present Illness 31-year-old female came in with complaints of him left lower limbs allied is an fever of 103.3 patient is found to be septic and severe cellulitis of the left lower leg. Ordering a Doppler of the left lower extremity. Patient was started on vancomycin. I discontinued Unasyn patient blood sugars were elevated because of that reason patient came to the hospital fatigue fever at home have blood sugars are elevated secondary to infection and sepsis. Patient had lactic acidosis of 3.7 secondary to severe sepsis now have come down to 1.9 patient is on IV fluids at this point of time patient denied any dysuria cough. Patient's blood cultures are positive for gram-positive cocci in clusters infectious disease was consulted, patient does have history of MRSA in the past. Repeat blood cultures for today and tomorrow will be obtained. Review of Systems REVIEW OF SYSTEMS: CONSTITUTIONAL: No fever, no malaise, no fatigue. HEENT: No recent visual problems or hearing problems. Denied any sore throat. CARDIOVASCULAR: No chest pain, orthopnea, PND, no palpitations, no syncope. PULMONARY: No shortness of breath, no cough, no hemoptysis. GASTROINTESTINAL: No diarrhea, no nausea, no vomiting, no abdominal pain. Normoactive bowel sounds. NEUROLOGICAL: No headaches, no weakness, no numbness. HEMATOLOGICAL: Denies any bleeding or petechiae. GENITOURINARY: Denies any burning micturition, frequency, or urgency. MUSCULOSKELETAL/RHEUMATOLOGICAL: As mentioned above ENDOCRINE: Denies any polyuria or polydipsia. The rest of the 14-point review of systems is negative. Past Medical History Past Medical History: Diabetes Mellitus, Deep Vein Thrombosis (DVT), Hyperlipidemia, Hypertension, Osteoarthritis (OA), Thyroid Disorder Additional Past Medical History / Comment(s): DVT L Leg History of Any Multi-Drug Resistant Organisms: MRSA Date of last positivie culture/infection: 2013 MDRO Source:: armpit,stomach Past Surgical History: Hysterectomy, Orthopedic Surgery Additional Past Surgical History / Comment(s): Rectocele;hand,ankle and knee surg.; Past Anesthesia/Blood Transfusion Reactions: No Reported Reaction Past Psychological History: No Psychological Hx Reported Smoking Status: Former smoker Past Alcohol Use History: Rare Additional Past Alcohol Use History / Comment(s): Patient smoked briefly only as a teenager. She denies any medical marijuana, marijuana, street drug or alcohol use. She lives at home with her and they have 3 dogs and 2 cats in the home. She is currently unemployed. Past Drug Use History: None Reported - Past Family History Brother(s) Family Medical History: Deep Vein Thrombosis (DVT) Mother Family Medical History: Coronary Artery Disease (CAD) Father Family Medical History: Diabetes Mellitus Medications and Allergies Home Medications Medication Instructions Recorded Confirmed Type Atorvastatin [Lipitor] 20 mg PO DAILY 08/08/15 01/27/17 History HYDROcodone/APAP 10-325MG [[place] 1 tab PO Q6H PRN 08/08/15 01/27/17 History 10-325] Hydrochlorothiazide [Hydrodiuril] 25 mg PO DAILY 08/08/15 01/27/17 History Ibuprofen [Motrin] 800 mg PO TID PRN 08/08/15 01/28/17 History Insulin Glargine [Lantus] 48 unit SQ DAILY 08/08/15 01/27/17 History Metoprolol Tartrate [Lopressor] 25 mg PO BID 08/08/15 01/27/17 History metFORMIN HCL 1,000 mg PO BID 08/08/15 01/28/17 History DULoxetine HCL [Cymbalta] 60 mg PO DAILY 01/27/17 01/27/17 History Famotidine 20 mg PO DAILY 01/27/17 01/27/17 History Glimepiride [Amaryl] 4 mg PO [id number] 01/27/17 01/27/17 History Levothyroxine Sodium [Synthroid] 137 mcg PO DAILY 01/27/17 01/27/17 History amLODIPine [Norvasc] 5 mg PO DAILY 01/27/17 01/27/17 History sitaGLIPtin [Januvia] 100 mg PO DAILY 01/27/17 01/27/17 History Allergies Allergy/AdvReac Type Severity Reaction Status Date / Time No Known Allergies Allergy Verified 01/27/17 19:05 Physical Exam Vitals: Vital Signs Temp Pulse Pulse Resp BP BP BP 01/28/17 14:37 97.9 F 97 18 93/54 01/28/17 06:18 98.9 F 94 14 125/68 01/28/17 05:07 101.3 F H 01/28/17 03:30 103.0 F H 01/27/17 23:00 100.3 F H 96 16 100/62 01/27/17 22:10 116/54 01/27/17 22:01 101.6 F H 93 18 99/52 01/27/17 19:57 99.4 F 95 20 107/58 01/27/17 19:08 101.8 F H 103 H 20 136/81 01/27/17 19:01 102.1 F H 01/27/17 17:59 103.3 F H 118 H 20 163/79 Pulse Ox 01/28/17 14:37 96 01/28/17 06:18 95 01/28/17 05:07 01/28/17 03:30 01/27/17 23:00 97 01/27/17 22:10 01/27/17 22:01 94 L 01/27/17 19:57 92 L 01/27/17 19:08 95 01/27/17 19:01 01/27/17 17:59 90 L Intake and Output 01/28/17 01/28/17 01/28/17 06:59 14:59 22:59 Intake Total 118 Balance 118 Intake: Oral 118 Other: # Voids 1 2 # Bowel Movements 0 PHYSICAL EXAMINATION: GENERAL: The patient is alert and oriented x3, not in any acute distress. Well developed, well nourished. HEENT: Pupils are round and equally reacting to light. EOMI. No scleral icterus. No conjunctival pallor. Normocephalic, atraumatic. No pharyngeal erythema. No thyromegaly. CARDIOVASCULAR: S1 and S2 present. No murmurs, rubs, or gallops. PULMONARY: Chest is clear to auscultation, no wheezing or crackles. ABDOMEN: Soft, nontender, nondistended, normoactive bowel sounds. No palpable organomegaly. MUSCULOSKELETAL: No joint swelling or deformity. EXTREMITIES: She does have extensive light as of the left leg circumferential with couple skin breakdowns but doesn't appear to be infected ulcers. NEUROLOGICAL: Gross neurological examination did not reveal any focal deficits. SKIN: No rashes. Results CBC & Chem 7: 01/28/17 03:51 01/28/17 03:51 Labs: Abnormal Lab Results - Last 24 Hours (Table) 01/27/17 01/27/17 01/27/17 Range/Units 18:26 18:26 18:26 WBC 11.5 H (3.8-10.6) k/uL RDW (11.5-15.5) % Plt Count 146 L (150-450) k/uL Neutrophils # 9.9 H (1.3-7.7) k/uL Lymphocytes # 0.8 L (1.0-4.8) k/uL Sodium 129 L (137-145) mmol/L Chloride 94 L (98-107) mmol/L Carbon Dioxide 21 L (22-30) mmol/L BUN 23 H (7-17) mg/dL Glucose 245 H (74-99) mg/dL POC Glucose (mg/dL) (75-99) mg/dL Hemoglobin A1c (4.2-6.1) % Plasma Lactic Acid Amrik 3.7 H* (0.7-2.0) mmol/L Total Protein 6.0 L (6.3-8.2) g/dL Albumin (3.5-5.0) g/dL Urine Protein (Negative) Urine Glucose (UA) (Negative) Urine Ketones (Negative) Amorphous Sediment (None) /hpf Urine Mucus (None) /hpf 01/27/17 01/27/17 01/27/17 Range/Units 18:26 19:31 22:39 WBC (3.8-10.6) k/uL RDW (11.5-15.5) % Plt Count (150-450) k/uL Neutrophils # (1.3-7.7) k/uL Lymphocytes # (1.0-4.8) k/uL Sodium (137-145) mmol/L Chloride (98-107) mmol/L Carbon Dioxide (22-30) mmol/L BUN (7-17) mg/dL Glucose (74-99) mg/dL POC Glucose (mg/dL) (75-99) mg/dL Hemoglobin A1c 6.7 H (4.2-6.1) % Plasma Lactic Acid Amrik 3.0 H* (0.7-2.0) mmol/L Total Protein (6.3-8.2) g/dL Albumin (3.5-5.0) g/dL Urine Protein 1+ H (Negative) Urine Glucose (UA) 4+ H (Negative) Urine Ketones 2+ H (Negative) Amorphous Sediment Occasional H (None) /hpf Urine Mucus Occasional H (None) /hpf 01/27/17 01/28/17 01/28/17 Range/Units 23:21 03:51 03:51 WBC (3.8-10.6) k/uL RDW 15.6 H (11.5-15.5) % Plt Count 124 L (150-450) k/uL Neutrophils # (1.3-7.7) k/uL Lymphocytes # 0.9 L (1.0-4.8) k/uL Sodium 132 L (137-145) mmol/L Chloride (98-107) mmol/L Carbon Dioxide (22-30) mmol/L BUN 25 H (7-17) mg/dL Glucose 122 H (74-99) mg/dL POC Glucose (mg/dL) 131 H (75-99) mg/dL Hemoglobin A1c (4.2-6.1) % Plasma Lactic Acid Amrik (0.7-2.0) mmol/L Total Protein 5.1 L (6.3-8.2) g/dL Albumin 2.7 L (3.5-5.0) g/dL Urine Protein (Negative) Urine Glucose (UA) (Negative) Urine Ketones (Negative) Amorphous Sediment (None) /hpf Urine Mucus (None) /hpf 01/28/17 01/28/17 Range/Units 07:04 12:10 WBC (3.8-10.6) k/uL RDW (11.5-15.5) % Plt Count (150-450) k/uL Neutrophils # (1.3-7.7) k/uL Lymphocytes # (1.0-4.8) k/uL Sodium (137-145) mmol/L Chloride (98-107) mmol/L Carbon Dioxide (22-30) mmol/L BUN (7-17) mg/dL Glucose (74-99) mg/dL POC Glucose (mg/dL) 114 H 140 H (75-99) mg/dL Hemoglobin A1c (4.2-6.1) % Plasma Lactic Acid Amrik (0.7-2.0) mmol/L Total Protein (6.3-8.2) g/dL Albumin (3.5-5.0) g/dL Urine Protein (Negative) Urine Glucose (UA) (Negative) Urine Ketones (Negative) Amorphous Sediment (None) /hpf Urine Mucus (None) /hpf Microbiology - Last 24 Hours (Table) 01/27/17 18:26 Blood Culture Gram Stain - Preliminary Blood 01/27/17 18:26 Blood Culture - Final Blood 01/27/17 19:31 Urine Culture - Preliminary Urine,Catheterized Thrombosis Risk Factor Assmnt - Choose All That Apply Any of the Below Risk Factors Present?: Yes Each Factor Represents 1 point: Age 41-60 years, Obesity (BMI >25), Swollen legs (current) Other Risk Factors: Yes Each Risk Factor Represents 3 Points: History of DVT/PE Other congenital or acquired thrombophilia - If yes, enter type in comment: No Thrombosis Risk Factor Assessment Total Risk Factor Score: 6 Thrombosis Risk Factor Assessment Level: High Risk Assessment and Plan Plan: #1 severe sepsis and bacteremia: Secondary to left lower limb cellulitis for which patient was started on vancomycin and Unasyn was discontinued. We will obtain repeat blood cultures today and tomorrow morning. Infectious disease was consulted. #2 uncontrolled blood sugars: Type 2 diabetes mellitus, secondary to infection patient will be resumed on her home regimen titrate the insulin depending on her requirement for sliding scale. #3 hyponatremia secondary to hyperglycemia and intravascular volume depletion. #4 DVT of the left lower extremity: Patient will be started on 0 alto will check for the insurance co-pay. Patient does have history of DVT in the past #5 hyperlipidemia #6 hypertension #7 hypothyroidism #8 osteoarthritis For above-mentioned chronic medical problems patient will be resumed on her appropriate home medications.
[2017-01-28 17:19] LABS: Glucose,Whole Blood 105 mg/dL (75-99)
[2017-01-28] MEDS: RIVAROXABAN 15 MG TAB PO SCH (17:51)
[2017-01-28 21:10] LABS: Glucose,Whole Blood 105 mg/dL (75-99)
--- NOTE | 2017-01-28 21:32 | P.CON ---
Consult Note - . Consult date: 01/28/17 Assessment/Plan:: This is a 61-year-old female who is well-known to ID service and was recently seen in the office regarding clearance for right knee arthroplasty. Patient did not have any difficulties at that time and was cleared for surgery which was to be scheduled. Patient states that she had onset of pain, redness and swelling to the left lower extremity on January 25 and came into [facility] emergency center for evaluation. She was diagnosed with cellulitis and placed on Bactrim. She states the pain, redness and swelling continued to worsen despite taking Bactrim. She came back to [facility] emergency center on January 27. She was positive for signs of sepsis with temperature 103.3, tachycardia, lactic acid was initially 3.7 and is now 1.9. Chest x-ray showed mild central vascular congestion with no infiltrate. Patient states her blood sugar has been running very high which is abnormal for her as her hemoglobin A1c is 6.7. Albumin noted be 2.7, sodium 129. Acetone was negative. Urinalysis was clear with nitrate and leukoesterase negative. Patient denies any urinary symptoms. She does states she had vomiting a couple days ago but none at this time. She has decreased appetite and mild nausea. She also complains of significant weakness and feeling tired. She does have some shortness of breath but no cough or sputum production and no chest pain. She is on oxygen at this time but not on oxygen at home. Patient was started on Unasyn and vancomycin and admitted to the [facility] floor. 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 Gordon. Patient states that she has had no improvement of the redness and edema in the left leg and it feels actually worse from when she came in. A venous Doppler study has been done and report is pending with prior history of DVT in the left leg several years ago and had completed a course of anticoagulation at that time. Patient also states that her cat scratched her leg and she has history of nonhealing wound to the left lower extremity for which she followed with Dr. Huff until healed which was greater than 1 year ago. Please see the consult note as dictated by nurse practitioner Mrs. Tia Vu. Please clarify that the Doppler has shown evidence of a DVT. She also has evidence of bacteremic cellulitis to the limb. Antibiotic therapy has initiated with daptomycin given her lack of improvement with vancomycin therapy. Blood cultures are positive. This time we await cultures to further direct the outpatient antibiotic therapy. Local wound care was with Silvadene and a wrapand compression given the new DVT. Elevational and the rest is helpful. Anticoagulation per primary service. I agree with evaluation, assessment and plan as dictated by nurse practitioner Mrs. Tia Vu.
[2017-01-28] MEDS: SILVER sulfADIAZINE Cream 400 GM 1 APPLIC APPLIC TOPICAL SCH (23:00)
[2017-01-29] MEDS: LEVOTHYROXINE 137 MCG TAB PO SCH (06:35)
[2017-01-29] MEDS: HYDROcodone/APAP 10-325MG 1 EACH TAB PO PRN ×3 (06:35→21:34)
[2017-01-29 08:07] LABS: Glucose,Whole Blood 114 mg/dL (75-99)
[2017-01-29 08:08] LABS: CH 31.5; CHCM 31.7; HCT 36.8 % (34.0-46.0); HDW 2.63; HGB 11.8 gm/dL (11.4-16.0); MCHC 32.1 g/dL (31.0-37.0); MCV 99.9 fL (80.0-100.0); Macrocytosis Slight; Mean Platelet Volume 8.5; RBC 3.69 m/uL (3.80-5.40); WBC 8.1 k/uL (3.8-10.6)
[2017-01-29 08:36] LABS: Anion Gap 10 mmol/L; Blood Urea Nitrogen 16 mg/dL (7-17); Carbon Dioxide 23 mmol/L (22-30); Chloride 101 mmol/L (98-107); Glucose 111 mg/dL (74-99); Non-African American GFR(MDRD) >60 (>60 ml/min/1.73 sqM); Potassium 3.5 mmol/L (3.5-5.1); Sodium 134 mmol/L (137-145)
[2017-01-29] MEDS: METOPROLOL TARTRATE 25 MG TAB PO SCH ×2 (09:14→21:34)
[2017-01-29] MEDS: amLODIPine 5 MG TAB PO SCH (09:14)
[2017-01-29] MEDS: PANTOPRAZOLE 40 MG TABLET PO SCH (09:15)
[2017-01-29] MEDS: RIVAROXABAN 15 MG TAB PO SCH ×2 (09:15→17:47)
[2017-01-29] MEDS: INSULIN GLARGINE 100 UNIT/ML 10 ML VIAL SQ SCH (09:15)
[2017-01-29] MEDS: LINAGLIPTIN 5 MG TABLET PO SCH (09:15)
[2017-01-29] MEDS: DULoxetine HCL 60 MG CAPSULE.DR PO SCH (09:15)
[2017-01-29] MEDS: INSULIN LISPRO (humaLOG) 300 UNIT/3 ML VIAL SQ SCH ×4 (09:21→21:41)
[2017-01-29] MEDS: DAPTOmycin 500 MG in SODIUM CHLORIDE 0.9% 50 ML IV SCH (11:56)
[2017-01-29 12:18] LABS: Glucose,Whole Blood 113 mg/dL (75-99)
--- NOTE | 2017-01-29 16:10 | P.PN ---
Subjective patient was admitted for bacteremia with gram-positive cocci, present to staph aureus in the blood cultures repeat cultures are so far negative patient was started on daptomycin patient has left lower limb cellulitis patient is still complaining of severe burning sensation in that area. Patient denied any fever denied any chest pain denied any nausea denied any vomiting denied any abdominal pain and new focal weakness. Objective - Vital Signs Vital signs: Vital Signs Temp 99.2 F 01/29/17 15:00 Pulse 95 01/29/17 15:00 Resp 16 01/29/17 15:00 BP 141/75 01/29/17 15:00 Pulse Ox 96 01/29/17 15:00 Intake & Output 01/28/17 01/29/17 01/29/17 18:59 06:59 18:59 Intake Total 118 Balance 118 Intake: Oral 118 Other: # Voids 2 1 3 # Bowel Movements 0 - Exam GENERAL: The patient is alert and oriented x3, not in any acute distress. Well developed, well nourished. HEENT: Pupils are round and equally reacting to light. EOMI. No scleral icterus. No conjunctival pallor. Normocephalic, atraumatic. No pharyngeal erythema. No thyromegaly. CARDIOVASCULAR: S1 and S2 present. No murmurs, rubs, or gallops. PULMONARY: Chest is clear to auscultation, no wheezing or crackles. ABDOMEN: Soft, nontender, nondistended, normoactive bowel sounds. No palpable organomegaly. MUSCULOSKELETAL: No joint swelling or deformity. EXTREMITIES: She does have extensive redness of the left leg circumferentialredness appears to be better with couple skin breakdowns but doesn't appear to be infected ulcers. NEUROLOGICAL: Gross neurological examination did not reveal any focal deficits. SKIN: No rashes. - Labs CBC & Chem 7: 01/29/17 07:31 01/29/17 07:31 Labs: Abnormal Lab Results - Last 24 Hours (Table) 01/28/17 01/28/17 01/29/17 Range/Units 16:58 20:59 07:31 RBC 3.69 L (3.80-5.40) m/uL Sodium (137-145) mmol/L Glucose (74-99) mg/dL POC Glucose (mg/dL) 105 H 105 H (75-99) mg/dL Calcium (8.4-10.2) mg/dL 01/29/17 01/29/17 01/29/17 Range/Units 07:31 07:37 11:53 RBC (3.80-5.40) m/uL Sodium 134 L (137-145) mmol/L Glucose 111 H (74-99) mg/dL POC Glucose (mg/dL) 114 H 113 H (75-99) mg/dL Calcium 8.0 L (8.4-10.2) mg/dL Microbiology - Last 24 Hours (Table) 01/28/17 11:59 Blood Culture Gram Stain - Preliminary Blood 01/28/17 11:59 Blood Culture - Final Blood 01/27/17 18:26 Blood Culture Gram Stain - Preliminary Blood Blood Culture - Preliminary Presumptive Staph aureus 01/27/17 19:31 Urine Culture - Final Urine,Catheterized Assessment and Plan Plan: #1 severe sepsis and bacteremia: Secondary to left lower limb cellulitis . Blood cultures showing present illness Eri stent staph aureus and patient is presently on daptomycin #2 uncontrolled blood sugars: Type 2 diabetes mellitus, secondary to infection patient will be resumed on her home regimen titrate the insulin depending on her requirement for sliding scale. #3 hyponatremia secondary to hyperglycemia and intravascular volume depletion. #4 DVT of the left lower extremity: Patient will be started on xarelto will check for the insurance co-pay. Patient does have history of DVT in the past #5 hyperlipidemia #6 hypertension #7 hypothyroidism #8 osteoarthritis For above-mentioned chronic medical problems patient will be resumed on her appropriate home medications.
[2017-01-29 18:01] LABS: Glucose,Whole Blood 119 mg/dL (75-99)
--- NOTE | 2017-01-29 21:03 | P.PN ---
Subjective Progress Note Date: 01/29/17 Principal diagnosis: Bacteremia This is a 61-year-old female who is well-known to ID service and was recently seen in the office regarding clearance for right knee arthroplasty. Patient did not have any difficulties at that time and was cleared for surgery which was to be scheduled. Patient states that she had onset of pain, redness and swelling to the left lower extremity on January 25 and came into emergency center for evaluation. She was diagnosed with cellulitis and placed on Bactrim. She states the pain, redness and swelling continued to worsen despite taking Bactrim. She came back to emergency center on January 27. She was positive for signs of sepsis with temperature 103.3, tachycardia, lactic acid was initially 3.7 and is now 1.9. Chest x-ray showed mild central vascular congestion with no infiltrate. Patient states her blood sugar has been running very high which is abnormal for her as her hemoglobin A1c is 6.7. Albumin noted be 2.7, sodium 129. Acetone was negative. Urinalysis was clear with nitrate and leukoesterase negative. Patient denies any urinary symptoms. She does states she had vomiting a couple days ago but none at this time. She has decreased appetite and mild nausea. She also complains of significant weakness and feeling tired. She does have some shortness of breath but no cough or sputum production and no chest pain. She is on oxygen at this time but not on oxygen at home. Patient was started on Unasyn and vancomycin and admitted to the [facility] floor. 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 Gordon. Patient states that she has had no improvement of the redness and edema in the left leg and it feels actually worse from when she came in. A venous Doppler study has been done and report is pending with prior history of DVT in the left leg several years ago and had completed a course of anticoagulation at that time. Patient also states that her cat scratched her leg and she has history of nonhealing wound to the left lower extremity for which she followed with Dr. Huff until healed which was greater than 1 year ago. As noted the patient has evidence of a cellulitis which is likely bacteremic having evidence of gram-positive cocci in her blood. However there is also evidence of a deep venous thrombosis to the left lower extremity which is new. She has no other new complaints today, her fever has improved. Objective - Vital Signs Vital signs: Vital Signs Temp 99.2 F 01/29/17 15:00 Pulse 95 01/29/17 15:00 Resp 16 01/29/17 15:00 BP 141/75 01/29/17 15:00 Pulse Ox 96 01/29/17 15:00 Intake & Output 01/29/17 01/29/17 01/30/17 06:59 18:59 06:59 Other: # Voids 1 3 - Exam Gen: This is a morbidly obese 61-year-old female. She is found in bed and appears to be comfortable. No acute distress noted. HEENT: Head is atraumatic, normocephalic. Pupils equal, round. Sclerae is anicteric. Conjunctiva pink. Mucous members of the mouth are moist. No thrush noted. NECK: Supple. No JVD. No lymphadenopathy. No thyromegaly. LUNGS: Clear to auscultation. No wheezes or rhonchi. No intercostal retractions. HEART: Regular rate and rhythm. No murmur. ABDOMEN: Soft. Obese. Bowel sounds are present. No masses. No tenderness. No redness under abdominal folds. EXTREMITIES: 3+ pedal edema to the left foot and lower extremity with erythema extending to below the knee with warmth and extreme tenderness to touch. Patient has healing wound to the fourth toe dorsal surface. No active drainage. Dorsalis pedis is +2 bilaterally. Right foot has pedal edema. There is mild erythema on the posterior area above the ankle. No warmth noted to this area. NEUROLOGICAL: Patient is awake, alert and oriented x3 - Labs CBC & Chem 7: 01/29/17 07:31 01/29/17 07:31 Labs: Abnormal Lab Results - Last 24 Hours (Table) 01/28/17 01/29/17 01/29/17 Range/Units 20:59 07:31 07:31 RBC 3.69 L (3.80-5.40) m/uL Sodium 134 L (137-145) mmol/L Glucose 111 H (74-99) mg/dL POC Glucose (mg/dL) 105 H (75-99) mg/dL Calcium 8.0 L (8.4-10.2) mg/dL 01/29/17 01/29/17 01/29/17 Range/Units 07:37 11:53 17:38 RBC (3.80-5.40) m/uL Sodium (137-145) mmol/L Glucose (74-99) mg/dL POC Glucose (mg/dL) 114 H 113 H 119 H (75-99) mg/dL Calcium (8.4-10.2) mg/dL Microbiology - Last 24 Hours (Table) 01/28/17 11:59 Blood Culture Gram Stain - Preliminary Blood 01/28/17 11:59 Blood Culture - Final Blood 01/27/17 18:26 Blood Culture Gram Stain - Preliminary Blood Blood Culture - Preliminary Presumptive Staph aureus 01/27/17 19:31 Urine Culture - Final Urine,Catheterized Laboratory Results WBC 8.1 k/uL (3.8-10.6) 01/29/17 07:31 RBC 3.69 m/uL (3.80-5.40) L 01/29/17 07:31 Hgb 11.8 gm/dL (11.4-16.0) 01/29/17 07:31 Hct 36.8 % (34.0-46.0) 01/29/17 07:31 MCV 99.9 fL (80.0-100.0) 01/29/17 07:31 MCH 32.0 pg (25.0-35.0) 01/29/17 07:31 MCHC 32.1 g/dL (31.0-37.0) 01/29/17 07:31 RDW 15.0 % (11.5-15.5) 01/29/17 07:31 Plt Count 163 k/uL (150-450) 01/29/17 07:31 Neutrophils % 81 % 01/28/17 03:51 Lymphocytes % 12 % 01/28/17 03:51 Monocytes % 5 % 01/28/17 03:51 Eosinophils % 0 % 01/28/17 03:51 Basophils % 0 % 01/28/17 03:51 Neutrophils # 5.9 k/uL (1.3-7.7) 01/28/17 03:51 Lymphocytes # 0.9 k/uL (1.0-4.8) L 01/28/17 03:51 Monocytes # 0.4 k/uL (0-1.0) 01/28/17 03:51 Eosinophils # 0.0 k/uL (0-0.7) 01/28/17 03:51 Basophils # 0.0 k/uL (0-0.2) 01/28/17 03:51 Macrocytosis Slight 01/29/17 07:31 Sodium 134 mmol/L (137-145) L 01/29/17 07:31 Potassium 3.5 mmol/L (3.5-5.1) 01/29/17 07:31 Chloride 101 mmol/L (98-107) 01/29/17 07:31 Carbon Dioxide 23 mmol/L (22-30) 01/29/17 07:31 Anion Gap 10 mmol/L 01/29/17 07:31 BUN 16 mg/dL (7-17) 01/29/17 07:31 Creatinine 0.77 mg/dL (0.52-1.04) 01/29/17 07:31 Est GFR (MDRD) Af Amer >60 (>60 ml/min/1.73 sqM) 01/29/17 07:31 Est GFR (MDRD) Non-Af >60 (>60 ml/min/1.73 sqM) 01/29/17 07:31 Glucose 111 mg/dL (74-99) H 01/29/17 07:31 POC Glucose (mg/dL) 119 mg/dL (75-99) H 01/29/17 17:38 POC Glu [employer] ID Karen Hernandez 01/29/17 17:[address] Glu mg/dL 146 mg/dL 01/27/17 18:26 Hemoglobin A1c 6.7 % (4.2-6.1) H 01/27/17 18:26 Lactic Ac Sepsis Rflx Y 01/27/17 18:58 Plasma Lactic Acid Amrik 1.9 mmol/L (0.7-2.0) 01/28/17 03:51 Calcium 8.0 mg/dL (8.4-10.2) L 01/29/17 07:31 Total Bilirubin 0.4 mg/dL (0.2-1.3) 01/28/17 03:51 AST 21 U/L (14-36) 01/28/17 03:51 ALT 37 U/L (9-52) 01/28/17 03:51 Alkaline Phosphatase 89 U/L (38-126) 01/28/17 03:51 Total Protein 5.1 g/dL (6.3-8.2) L 01/28/17 03:51 Albumin 2.7 g/dL (3.5-5.0) L 01/28/17 03:51 Urine Color Yellow 01/27/17 19:31 Urine Appearance Clear (Clear) 01/27/17 19:31 Urine pH 6.5 (5.0-8.0) 01/27/17 19:31 Ur Specific [place] 1.015 (1.001-1.035) 01/27/17 19:31 Urine Protein 1+ (Negative) H 01/27/17 19:31 Urine Glucose (UA) 4+ (Negative) H 01/27/17 19:31 Urine Ketones 2+ (Negative) H 01/27/17 19:31 Urine Blood Negative (Negative) 01/27/17 19:31 Urine Nitrite Negative (Negative) 01/27/17 19:31 Urine Bilirubin Negative (Negative) 01/27/17 19:31 Urine Urobilinogen <2.0 mg/dL (<2.0) 01/27/17 19:31 Ur Leukocyte Esterase Negative (Negative) 01/27/17 19:31 Urine WBC 2 /hpf (0-5) 01/27/17 19:31 Amorphous Sediment Occasional /hpf (None) H 01/27/17 19:31 Urine Mucus Occasional /hpf (None) H 01/27/17 19:31 Acetone, Qual Negative (Negative) 01/27/17 18:26 Microbiology 01/28/17 11:59 Blood Blood Culture Gram Stain - Preliminary 01/28/17 11:59 Blood Blood Culture - Final 01/27/17 18:26 Blood Blood Culture Gram Stain - Preliminary 01/27/17 18:26 Blood Blood Culture - Preliminary Presumptive Staph aureus 01/27/17 19:31 Urine,Catheterized Urine Culture - Final 01/27/17 18:26 Blood Blood Culture - Final Assessment and Plan (1) Cellulitis of left leg Narrative/Plan: 61-year-old female who has a history of significant degenerative joint disease and wanting to have a right total knee arthroplasty presented hospital with evidence of synovitis of the left leg in fever. She's been without evidence of staph aureus bacteremia likely from her cellulitis. Antimicrobial therapy is in process with daptomycin until we have further culture data. There is evidence of the deep venous thrombosis to the left leg which is acute in new. She is being anticoagulated. Follow blood cultures have been requested. If she has persistently positive blood cultures will be to concerned to an infected thrombus in the left lower limb. She is however doing somewhat better today. Leukocytosis is improving. Fevers improving. Once bacteremia clears will need IV access to complete her course of antibiotic therapy for her staph bacteremia. Status: Acute (2) Staphylococcus aureus bacteremia Status: Acute (3) Fever Status: Acute (4) Leukocytosis Status: Acute
[2017-01-29] MEDS: SILVER sulfADIAZINE Cream 400 GM 1 APPLIC APPLIC TOPICAL SCH (21:35)
[2017-01-29 21:39] LABS: Glucose,Whole Blood 125 mg/dL (75-99)
[2017-01-29] MEDS: ACETAMINOPHEN TAB 325 MG TAB PO PRN (23:28)
[2017-01-30] MEDS: HYDROcodone/APAP 10-325MG 1 EACH TAB PO PRN (05:26)
[2017-01-30] MEDS: LEVOTHYROXINE 137 MCG TAB PO SCH (06:21)
[2017-01-30 07:27] LABS: Glucose,Whole Blood 75 mg/dL (75-99)
[2017-01-30] MEDS: INSULIN LISPRO (humaLOG) 300 UNIT/3 ML VIAL SQ SCH ×4 (07:32→22:13)
[2017-01-30] MEDS: PANTOPRAZOLE 40 MG TABLET PO SCH (07:36)
[2017-01-30] MEDS: METOPROLOL TARTRATE 25 MG TAB PO SCH ×2 (07:37→22:13)
[2017-01-30] MEDS: amLODIPine 5 MG TAB PO SCH (07:37)
[2017-01-30] MEDS: RIVAROXABAN 15 MG TAB PO SCH ×2 (07:37→17:09)
[2017-01-30] MEDS: LINAGLIPTIN 5 MG TABLET PO SCH (07:37)
[2017-01-30] MEDS: DULoxetine HCL 60 MG CAPSULE.DR PO SCH (07:37)
[2017-01-30] MEDS: INSULIN GLARGINE 100 UNIT/ML 10 ML VIAL SQ SCH (07:43)
[2017-01-30 12:30] LABS: Glucose,Whole Blood 167 mg/dL (75-99)
[2017-01-30] MEDS: DAPTOmycin 500 MG in SODIUM CHLORIDE 0.9% 50 ML IV SCH (12:35)
--- NOTE | 2017-01-30 14:44 | P.PN ---
Subjective patient was admitted for bacteremia with gram-positive cocci, present to staph aureus in the blood cultures repeat cultures are so far negative patient was started on daptomycin patient has left lower limb cellulitis patient is still complaining of severe burning sensation in that area. 01/30/2017 Patient's repeat blood cultures are positive as well because of which I'll opt another repeat blood cultures today and tomorrow discussed with the cardiology patient will need a SOCORRO will obtain an echocardiogram first to see if there is any significant amount ETB will be done tomorrow orders will be on Thursday and still feels tired and fatigued Patient denied any fever denied any chest pain denied any nausea denied any vomiting denied any abdominal pain and new focal weakness. Objective - Vital Signs Vital signs: Vital Signs Temp 100.3 F H 01/30/17 14:39 Pulse 96 01/30/17 14:39 Resp 20 01/30/17 14:39 BP 138/72 01/30/17 14:39 Pulse Ox 98 01/30/17 14:39 Intake & Output 01/29/17 01/30/17 01/30/17 18:59 06:59 18:59 Intake Total 200 Balance 200 Intake: Oral 200 Other: # Voids 3 3 2 - Exam GENERAL: The patient is alert and oriented x3, not in any acute distress. Well developed, well nourished. HEENT: Pupils are round and equally reacting to light. EOMI. No scleral icterus. No conjunctival pallor. Normocephalic, atraumatic. No pharyngeal erythema. No thyromegaly. CARDIOVASCULAR: S1 and S2 present. No murmurs, rubs, or gallops. PULMONARY: Chest is clear to auscultation, no wheezing or crackles. ABDOMEN: Soft, nontender, nondistended, normoactive bowel sounds. No palpable organomegaly. MUSCULOSKELETAL: No joint swelling or deformity. EXTREMITIES: She does have extensive redness of the left leg circumferentialredness appears to be better with couple skin breakdowns but doesn't appear to be infected ulcers. NEUROLOGICAL: Gross neurological examination did not reveal any focal deficits. SKIN: No rashes. - Labs CBC & Chem 7: 01/29/17 07:31 01/29/17 07:31 Labs: Abnormal Lab Results - Last 24 Hours (Table) 01/29/17 01/29/17 01/30/17 Range/Units 17:38 21:22 12:20 POC Glucose (mg/dL) 119 H 125 H 167 H (75-99) mg/dL Microbiology - Last 24 Hours (Table) 01/29/17 07:31 Blood Culture - Preliminary Blood No Growth after 24 hours 01/27/17 18:26 Blood Culture Gram Stain - Final Blood Blood Culture - Final Methicillin resist S. aureus 01/28/17 11:59 Blood Culture Gram Stain - Preliminary Blood Blood Culture - Preliminary Presumptive Staph aureus Assessment and Plan Plan: #1 severe sepsis and bacteremia: Secondary to left lower limb cellulitis . Blood cultures are positive for methicillin-resistant staph aureus and patient is on daptomycin patient had persistent bacteremia will need to rule out bacteremia and endocarditis. Patient has pain in the back but that is chronic #2 uncontrolled blood sugars: Type 2 diabetes mellitus, secondary to infection patient will be resumed on her home regimen titrate the insulin depending on her requirement for sliding scale. #3 hyponatremia secondary to hyperglycemia and intravascular volume depletion. Repeat basic metabolic profile tomorrow #4 DVT of the left lower extremity: Patient will be started on xarelto. Patient does have history of DVT in the past #5 hyperlipidemia #6 hypertension #7 hypothyroidism #8 osteoarthritis For above-mentioned chronic medical problems patient will be resumed on her appropriate home medications.
[2017-01-30] MEDS: ACETAMINOPHEN TAB 325 MG TAB PO PRN ×2 (15:10→22:13)
--- NOTE | 2017-01-30 16:23 | ECHOF ---
Referral Reason:R/o endocarditis MEASUREMENTS -------- HEIGHT: 162.6 cm WEIGHT: 99.8 kg BP: 131/66 RVIDd: 3.3 cm (< 3.3) IVSd: 1.4 cm (0.6 - 1.1) LVIDd: 4.3 cm (3.9 - 5.3) LVPWd: 1.4 cm (0.6 - 1.1) IVSs: 2.0 cm LVIDs: 2.8 cm LVPWs: 2.1 cm LA Diam: 3.7 cm (2.7 - 3.8) LAESV Index (A-L): 22.26 ml/m Ao Diam: 3.6 cm (2.0 - 3.7) AV Cusp: 1.8 cm (1.5 - 2.6) MV EXCURSION: 14.751 mm (> 18.000) MV EF SLOPE: 100 mm/s (70 - 150) EPSS: 0.4 cm MV E Deacon: 1.05 m/s MV DecT: 143 ms MV A Deacon: 0.87 m/s MV E/A Ratio: 1.21 AV maxP.64 mmHg AV meanP.15 mmHg RAP: 5.00 mmHg RVSP: 37.98 mmHg FINDINGS -------- Sinus rhythm. This was a technically good study. The left ventricular size is normal. There is moderate concentric left ventricular hypertrophy. Overall left ventricular systolic function is normal with, an EF between 60 - 65 %. The right ventricle is mildly enlarged. Normal LA size by volume 22+/-6 ml/m2. The right atrium is normal in size. There is mild aortic valve sclerosis. Peak/mean gradient across the Aortic Valve is 16.64mmHg / 7.15mmHg. There is trace mitral regurgitation. Mild tricuspid regurgitation present. There is mild pulmonary hypertension. The right ventricular systolic pressure, as measured by Doppler, is 37.98mmHg. There is no pulmonic regurgitation present. The aortic root size is normal. Normal inferior vena cava with normal inspiratory collapse consistent with estimated right atrial pressure of 5 mmHg. There is no pericardial effusion. CONCLUSIONS -------- 1. Sinus rhythm. 2. Peak/mean gradient across the Aortic Valve is 16.64mmHg / 7.15mmHg. 3. There is trace mitral regurgitation. 4. Mild tricuspid regurgitation present. 5. There is mild pulmonary hypertension. 6. The right ventricular systolic pressure, as measured by Doppler, is 37.98mmHg. 7. There is no pulmonic regurgitation present. 8. The aortic root size is normal. 9. Normal inferior vena cava with normal inspiratory collapse consistent with estimated right atrial pressure of 5 mmHg. 10. There is no pericardial effusion. 11. This was a technically good study. 12. The left ventricular size is normal. 13. There is moderate concentric left ventricular hypertrophy. 14. Overall left ventricular systolic function is normal with, an EF between 60 - 65 %. 15. The right ventricle is mildly enlarged. 16. Normal LA size by volume 22+/-6 ml/m2. 17. The right atrium is normal in size. 18. There is mild aortic valve sclerosis. NETWORK RELATIONS CONSULTANT: Adriana Kc RDCS
[2017-01-30 17:10] LABS: Glucose,Whole Blood 119 mg/dL (75-99)
[2017-01-30] MEDS: SILVER sulfADIAZINE Cream 400 GM 1 APPLIC APPLIC TOPICAL SCH (22:14)
[2017-01-30 22:15] LABS: Glucose,Whole Blood 166 mg/dL (75-99)
--- NOTE | 2017-01-30 23:09 | P.PN ---
Subjective Progress Note Date: 01/30/17 Principal diagnosis: Bacteremia This is a 61-year-old female who is well-known to ID service and was recently seen in the office regarding clearance for right knee arthroplasty. Patient did not have any difficulties at that time and was cleared for surgery which was to be scheduled. Patient states that she had onset of pain, redness and swelling to the left lower extremity on January 25 and came into [facility] emergency center for evaluation. She was diagnosed with cellulitis and placed on Bactrim. She states the pain, redness and swelling continued to worsen despite taking Bactrim. She came back to [facility] emergency center on January 27. She was positive for signs of sepsis with temperature 103.3, tachycardia, lactic acid was initially 3.7 and is now 1.9. Chest x-ray showed mild central vascular congestion with no infiltrate. Patient states her blood sugar has been running very high which is abnormal for her as her hemoglobin A1c is 6.7. Albumin noted be 2.7, sodium 129. Acetone was negative. Urinalysis was clear with nitrate and leukoesterase negative. Patient denies any urinary symptoms. She does states she had vomiting a couple days ago but none at this time. She has decreased appetite and mild nausea. She also complains of significant weakness and feeling tired. She does have some shortness of breath but no cough or sputum production and no chest pain. She is on oxygen at this time but not on oxygen at home. Patient was started on Unasyn and vancomycin and admitted to the [facility] floor. 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 Gordon. Patient states that she has had no improvement of the redness and edema in the left leg and it feels actually worse from when she came in. A venous Doppler study has been done and report is pending with prior history of DVT in the left leg several years ago and had completed a course of anticoagulation at that time. Patient also states that her cat scratched her leg and she has history of nonhealing wound to the left lower extremity for which she followed with Dr. Huff until healed which was greater than 1 year ago. As noted the patient has evidence of a cellulitis which is likely bacteremic having evidence of gram-positive cocci in her blood. However there is also evidence of a deep venous thrombosis to the left lower extremity which is new. She has no other new complaints today, her fever has improved. The patient's current status is reviewed with her 2 daughters that are present. Objective - Vital Signs Vital signs: Vital Signs Temp 98.1 F 01/30/17 20:34 Pulse 96 01/30/17 14:39 Resp 20 01/30/17 14:39 BP 138/72 01/30/17 14:39 Pulse Ox 98 01/30/17 14:39 Intake & Output 01/30/17 01/30/17 01/31/17 06:59 18:59 06:59 Intake Total 200 Balance 200 Intake: Oral 200 Other: # Voids 3 2 - Exam Gen: This is a morbidly obese 61-year-old female. She is found in bed and appears to be comfortable. No acute distress noted. HEENT: Head is atraumatic, normocephalic. Pupils equal, round. Sclerae is anicteric. Conjunctiva pink. Mucous members of the mouth are moist. No thrush noted. NECK: Supple. No JVD. No lymphadenopathy. No thyromegaly. LUNGS: Clear to auscultation. No wheezes or rhonchi. No intercostal retractions. HEART: Regular rate and rhythm. No murmur. ABDOMEN: Soft. Obese. Bowel sounds are present. No masses. No tenderness. No redness under abdominal folds. EXTREMITIES: 3+ pedal edema to the left foot and lower extremity with erythema extending to below the knee with warmth and extreme tenderness to touch. Patient has healing wound to the fourth toe dorsal surface. No active drainage. Dorsalis pedis is +2 bilaterally. Right foot has pedal edema. There is mild erythema on the posterior area above the ankle. No warmth noted to this area. NEUROLOGICAL: Patient is awake, alert and oriented x3 - Labs CBC & Chem 7: 01/29/17 07:31 01/29/17 07:31 Labs: Abnormal Lab Results - Last 24 Hours (Table) 01/30/17 01/30/17 01/30/17 Range/Units 12:20 17:09 22:02 POC Glucose (mg/dL) 167 H 119 H 166 H (75-99) mg/dL Microbiology - Last 24 Hours (Table) 01/28/17 11:59 Blood Culture Gram Stain - Final Blood Blood Culture - Final Staphylococcus aureus 01/29/17 07:31 Blood Culture - Preliminary Blood No Growth after 24 hours 01/27/17 18:26 Blood Culture Gram Stain - Final Blood Blood Culture - Final Methicillin resist S. aureus Laboratory Results WBC 8.1 k/uL (3.8-10.6) 01/29/17 07:31 RBC 3.69 m/uL (3.80-5.40) L 01/29/17 07:31 Hgb 11.8 gm/dL (11.4-16.0) 01/29/17 07:31 Hct 36.8 % (34.0-46.0) 01/29/17 07:31 MCV 99.9 fL (80.0-100.0) 01/29/17 07:31 MCH 32.0 pg (25.0-35.0) 01/29/17 07:31 MCHC 32.1 g/dL (31.0-37.0) 01/29/17 07:31 RDW 15.0 % (11.5-15.5) 01/29/17 07:31 Plt Count 163 k/uL (150-450) 01/29/17 07:31 Neutrophils % 81 % 01/28/17 03:51 Lymphocytes % 12 % 01/28/17 03:51 Monocytes % 5 % 01/28/17 03:51 Eosinophils % 0 % 01/28/17 03:51 Basophils % 0 % 01/28/17 03:51 Neutrophils # 5.9 k/uL (1.3-7.7) 01/28/17 03:51 Lymphocytes # 0.9 k/uL (1.0-4.8) L 01/28/17 03:51 Monocytes # 0.4 k/uL (0-1.0) 01/28/17 03:51 Eosinophils # 0.0 k/uL (0-0.7) 01/28/17 03:51 Basophils # 0.0 k/uL (0-0.2) 01/28/17 03:51 Macrocytosis Slight 01/29/17 07:31 Sodium 134 mmol/L (137-145) L 01/29/17 07:31 Potassium 3.5 mmol/L (3.5-5.1) 01/29/17 07:31 Chloride 101 mmol/L (98-107) 01/29/17 07:31 Carbon Dioxide 23 mmol/L (22-30) 01/29/17 07:31 Anion Gap 10 mmol/L 01/29/17 07:31 BUN 16 mg/dL (7-17) 01/29/17 07:31 Creatinine 0.77 mg/dL (0.52-1.04) 01/29/17 07:31 Est GFR (MDRD) Af Amer >60 (>60 ml/min/1.73 sqM) 01/29/17 07:31 Est GFR (MDRD) Non-Af >60 (>60 ml/min/1.73 sqM) 01/29/17 07:31 Glucose 111 mg/dL (74-99) H 01/29/17 07:31 POC Glucose (mg/dL) 166 mg/dL (75-99) H 01/30/17 22:02 POC Glu [place] [employer] ID Tigist [place] 01/30/17 22:[address] Glu mg/dL 146 mg/dL 01/27/17 18:26 Hemoglobin A1c 6.7 % (4.2-6.1) H 01/27/17 18:26 Lactic Ac Sepsis Rflx Y 01/27/17 18:58 Plasma Lactic Acid Amrik 1.1 mmol/L (0.7-2.0) 01/30/17 16:19 Calcium 8.0 mg/dL (8.4-10.2) L 01/29/17 07:31 Total Bilirubin 0.4 mg/dL (0.2-1.3) 01/28/17 03:51 AST 21 U/L (14-36) 01/28/17 03:51 ALT 37 U/L (9-52) 01/28/17 03:51 Alkaline Phosphatase 89 U/L (38-126) 01/28/17 03:51 Total Protein 5.1 g/dL (6.3-8.2) L 01/28/17 03:51 Albumin 2.7 g/dL (3.5-5.0) L 01/28/17 03:51 Urine Color Yellow 01/27/17 19:31 Urine Appearance Clear (Clear) 01/27/17 19:31 Urine pH 6.5 (5.0-8.0) 01/27/17 19:31 Ur Specific [place] 1.015 (1.001-1.035) 01/27/17 19:31 Urine Protein 1+ (Negative) H 01/27/17 19:31 Urine Glucose (UA) 4+ (Negative) H 01/27/17 19:31 Urine Ketones 2+ (Negative) H 01/27/17 19:31 Urine Blood Negative (Negative) 01/27/17 19:31 Urine Nitrite Negative (Negative) 01/27/17 19:31 Urine Bilirubin Negative (Negative) 01/27/17 19:31 Urine Urobilinogen <2.0 mg/dL (<2.0) 01/27/17 19:31 Ur Leukocyte Esterase Negative (Negative) 01/27/17 19:31 Urine WBC 2 /hpf (0-5) 01/27/17 19:31 Amorphous Sediment Occasional /hpf (None) H 01/27/17 19:31 Urine Mucus Occasional /hpf (None) H 01/27/17 19:31 Acetone, Qual Negative (Negative) 01/27/17 18:26 Microbiology 01/28/17 11:59 Blood Blood Culture Gram Stain - Final 01/28/17 11:59 Blood Blood Culture - Final Staphylococcus aureus 01/29/17 07:31 Blood Blood Culture - Preliminary No Growth after 24 hours 01/27/17 18:26 Blood Blood Culture Gram Stain - Final 01/27/17 18:26 Blood Blood Culture - Final Methicillin resist S. aureus 01/28/17 11:59 Blood Blood Culture - Final 01/27/17 19:31 Urine,Catheterized Urine Culture - Final 01/27/17 18:26 Blood Blood Culture - Final Assessment and Plan (1) Cellulitis of left leg Narrative/Plan: 61-year-old female who has a history of significant degenerative joint disease and wanting to have a right total knee arthroplasty presented hospital with evidence of synovitis of the left leg in fever. She's been without evidence of staph aureus bacteremia likely from her cellulitis. Antimicrobial therapy is in process with daptomycin until we have further culture data. There is evidence of the deep venous thrombosis to the left leg which is acute in new. She is being anticoagulated. Follow blood cultures have been requested. If she has persistently positive blood cultures will be to concerned to an infected thrombus in the left lower limb. She is however doing somewhat better today. Leukocytosis is improving. Fevers improving. Once bacteremia clears will need IV access to complete her course of antibiotic therapy for her staph bacteremia. The case is discussed with cardiology. Transthoracic echocardiogram appears to be normal. Patient does have reasons for her current bacteremia. If it does not clear then will need to have further interventions and possibly a SOCORRO. More likely would have vascular surgery evaluation and thrombectomy to the left leg clot for bacteremia does not clear with concerns to a septic thrombophlebitis. Status: Acute (2) Staphylococcus aureus bacteremia Status: Acute (3) Fever Status: Acute (4) Leukocytosis Status: Acute
[2017-01-31] MEDS: HYDROcodone/APAP 10-325MG 1 EACH TAB PO PRN ×4 (02:14→22:17)
[2017-01-31] MEDS: LEVOTHYROXINE 137 MCG TAB PO SCH (06:51)
[2017-01-31 07:30] LABS: Glucose,Whole Blood 113 mg/dL (75-99)
[2017-01-31 07:35] LABS: CHCM 31.8; HCT 35.3 % (34.0-46.0); HDW 2.62; HGB 11.2 gm/dL (11.4-16.0); MCH 32.2 pg (25.0-35.0); MCHC 31.7 g/dL (31.0-37.0); MCV 101.4 fL (80.0-100.0); Macrocytosis Slight; Mean Platelet Volume 8.6; RBC 3.49 m/uL (3.80-5.40); RDW 15.7 % (11.5-15.5)
[2017-01-31 07:54] LABS: Anion Gap 11 mmol/L; Blood Urea Nitrogen 10 mg/dL (7-17); Calcium 7.7 mg/dL (8.4-10.2); Carbon Dioxide 22 mmol/L (22-30); Chloride 105 mmol/L (98-107); Glucose 127 mg/dL (74-99); Non-African American GFR(MDRD) >60 (>60 ml/min/1.73 sqM); Potassium 3.5 mmol/L (3.5-5.1); Sodium 138 mmol/L (137-145)
[2017-01-31] MEDS: INSULIN LISPRO (humaLOG) 300 UNIT/3 ML VIAL SQ SCH ×4 (07:58→20:40)
[2017-01-31] MEDS: RIVAROXABAN 15 MG TAB PO SCH ×2 (08:18→17:48)
[2017-01-31] MEDS: INSULIN GLARGINE 100 UNIT/ML 10 ML VIAL SQ SCH (08:18)
[2017-01-31] MEDS: DULoxetine HCL 60 MG CAPSULE.DR PO SCH (08:18)
[2017-01-31] MEDS: PANTOPRAZOLE 40 MG TABLET PO SCH (08:18)
[2017-01-31] MEDS: amLODIPine 5 MG TAB PO SCH (08:18)
[2017-01-31] MEDS: LINAGLIPTIN 5 MG TABLET PO SCH (08:19)
[2017-01-31] MEDS: METOPROLOL TARTRATE 25 MG TAB PO SCH ×2 (08:19→20:42)
[2017-01-31] MEDS: diphenhydrAMINE 25 MG CAP PO PRN ×3 (10:56→20:42)
[2017-01-31] MEDS: DAPTOmycin 500 MG in SODIUM CHLORIDE 0.9% 50 ML IV SCH (10:57)
--- NOTE | 2017-01-31 12:13 | P.PN ---
Subjective patient was admitted for bacteremia with gram-positive cocci, present to staph aureus in the blood cultures repeat cultures are so far negative patient was started on daptomycin patient has left lower limb cellulitis patient is still complaining of severe burning sensation in that area. 01/30/2017 Patient's repeat blood cultures are positive as well because of which I'll opt another repeat blood cultures today and tomorrow discussed with the cardiology patient will need a SOCORRO will obtain an echocardiogram first to see if there is any significant amount ETB will be done tomorrow orders will be on Thursday and still feels tired and fatigued 01/31/2017 patient is feeling much better echo cardiac murmur essentially within normal limits. Patient denied any fever denied any chest pain denied any nausea denied any vomiting denied any abdominal pain and new focal weakness. Objective - Vital Signs Vital signs: Vital Signs Temp 98.6 F 01/31/17 07:00 Pulse 95 01/31/17 07:00 Resp 16 01/31/17 07:00 BP 130/64 01/31/17 07:00 Pulse Ox 98 01/31/17 07:00 Intake & Output 01/30/17 01/31/17 01/31/17 18:59 06:59 18:59 Intake Total 200 500 Balance 200 500 Intake: Oral 200 500 Other: Voiding Method Bedpan # Voids 2 2 - Exam GENERAL: The patient is alert and oriented x3, not in any acute distress. Well developed, well nourished. HEENT: Pupils are round and equally reacting to light. EOMI. No scleral icterus. No conjunctival pallor. Normocephalic, atraumatic. No pharyngeal erythema. No thyromegaly. CARDIOVASCULAR: S1 and S2 present. No murmurs, rubs, or gallops. PULMONARY: Chest is clear to auscultation, no wheezing or crackles. ABDOMEN: Soft, nontender, nondistended, normoactive bowel sounds. No palpable organomegaly. MUSCULOSKELETAL: No joint swelling or deformity. EXTREMITIES: She does have extensive redness of the left leg circumferentialredness appears to be better with couple skin breakdowns but doesn't appear to be infected ulcers. NEUROLOGICAL: Gross neurological examination did not reveal any focal deficits. SKIN: No rashes. - Labs CBC & Chem 7: 01/31/17 07:25 01/31/17 07:25 Labs: Abnormal Lab Results - Last 24 Hours (Table) 01/30/17 01/30/17 01/30/17 Range/Units 12:20 17:09 22:02 RBC (3.80-5.40) m/uL Hgb (11.4-16.0) gm/dL MCV (80.0-100.0) fL RDW (11.5-15.5) % Glucose (74-99) mg/dL POC Glucose (mg/dL) 167 H 119 H 166 H (75-99) mg/dL Calcium (8.4-10.2) mg/dL 01/31/17 01/31/17 01/31/17 Range/Units 07:23 07:25 07:25 RBC 3.49 L (3.80-5.40) m/uL Hgb 11.2 L (11.4-16.0) gm/dL MCV 101.4 H (80.0-100.0) fL RDW 15.7 H (11.5-15.5) % Glucose 127 H (74-99) mg/dL POC Glucose (mg/dL) 113 H (75-99) mg/dL Calcium 7.7 L (8.4-10.2) mg/dL Microbiology - Last 24 Hours (Table) 01/29/17 07:31 Blood Culture - Preliminary Blood No Growth after 48 hours 01/28/17 11:59 Blood Culture Gram Stain - Final Blood Blood Culture - Final Staphylococcus aureus Assessment and Plan Plan: #1 severe sepsis and bacteremia: Secondary to left lower limb cellulitis . Blood cultures are positive for methicillin-resistant staph aureus and patient is on daptomycin patient had persistent bacteremia will need to rule out bacteremia and endocarditis. Patient has pain in the back but that is chronic. Patient is feeling better so far blood cultures from [facility] are negative for 48 hours #2 uncontrolled blood sugars: Type 2 diabetes mellitus, secondary to infection patient will be resumed on her home regimen titrate the insulin depending on her requirement for sliding scale. #3 hyponatremia secondary to hyperglycemia and intravascular volume depletion. Repeat basic metabolic profile tomorrow #4 DVT of the left lower extremity: Patient will be started on xarelto. Patient does have history of DVT in the past #5 hyperlipidemia #6 hypertension #7 hypothyroidism #8 osteoarthritis For above-mentioned chronic medical problems patient will be resumed on her appropriate home medications.
[2017-01-31 12:26] LABS: Glucose,Whole Blood 231 mg/dL (75-99)
[2017-01-31] MEDS ORDERED: HALOPERIDOL LACTATE 5 MG/ML 1 ML VIAL IM PRN (15:38)
[2017-01-31] MEDS ORDERED: methylPREDNISolone SOD SUCCI 40 MG/ML 1 ML VIAL IV STA (15:38)
[2017-01-31 17:30] LABS: Glucose,Whole Blood 161 mg/dL (75-99)
[2017-01-31 20:38] LABS: Glucose,Whole Blood 257 mg/dL (75-99)
[2017-01-31] MEDS: CEFTAROLINE FOSAMIL 600 MG in SODIUM CHLORIDE 0.9% 250 ML IVPB SCH (20:40)
[2017-01-31] MEDS: SILVER sulfADIAZINE Cream 400 GM 1 APPLIC APPLIC TOPICAL SCH (20:45)
[2017-01-31 21:19] LABS: Glucose,Whole Blood 277 mg/dL (75-99)
[2017-02-01] MEDS: LEVOTHYROXINE 137 MCG TAB PO SCH (05:53)
[2017-02-01 07:37] LABS: Glucose,Whole Blood 239 mg/dL (75-99)
[2017-02-01] MEDS: INSULIN GLARGINE 100 UNIT/ML 10 ML VIAL SQ SCH (08:04)
[2017-02-01] MEDS: INSULIN LISPRO (humaLOG) 300 UNIT/3 ML VIAL SQ SCH ×4 (08:05→22:04)
[2017-02-01] MEDS: PANTOPRAZOLE 40 MG TABLET PO SCH (08:06)
[2017-02-01] MEDS: RIVAROXABAN 15 MG TAB PO SCH ×2 (08:06→17:34)
[2017-02-01] MEDS: CEFTAROLINE FOSAMIL 600 MG in SODIUM CHLORIDE 0.9% 250 ML IVPB SCH ×2 (08:06→22:04)
[2017-02-01] MEDS: METOPROLOL TARTRATE 25 MG TAB PO SCH ×2 (08:06→22:04)
[2017-02-01] MEDS: LINAGLIPTIN 5 MG TABLET PO SCH (08:06)
[2017-02-01] MEDS: DULoxetine HCL 60 MG CAPSULE.DR PO SCH (08:06)
[2017-02-01] MEDS: amLODIPine 5 MG TAB PO SCH (08:07)
--- NOTE | 2017-02-01 09:04 | P.PN ---
Subjective Progress Note Date: 01/31/17 Principal diagnosis: Bacteremia This is a 61-year-old female who is well-known to ID service and was recently seen in the office regarding clearance for right knee arthroplasty. Patient did not have any difficulties at that time and was cleared for surgery which was to be scheduled. Patient states that she had onset of pain, redness and swelling to the left lower extremity on January 25 and came into [facility] emergency [facility] for evaluation. She was diagnosed with cellulitis and placed on Bactrim. She states the pain, redness and swelling continued to worsen despite taking Bactrim. She came back to [facility] emergency center on January 27. She was positive for signs of sepsis with temperature 103.3, tachycardia, lactic acid was initially 3.7 and is now 1.9. Chest x-ray showed mild central vascular congestion with no infiltrate. Patient states her blood sugar has been running very high which is abnormal for her as her hemoglobin A1c is 6.7. Albumin noted be 2.7, sodium 129. Acetone was negative. Urinalysis was clear with nitrate and leukoesterase negative. Patient denies any urinary symptoms. She does states she had vomiting a couple days ago but none at this time. She has decreased appetite and mild nausea. She also complains of significant weakness and feeling tired. She does have some shortness of breath but no cough or sputum production and no chest pain. She is on oxygen at this time but not on oxygen at home. Patient was started on Unasyn and vancomycin and admitted to the [facility] floor. 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 Gordon. Patient states that she has had no improvement of the redness and edema in the left leg and it feels actually worse from when she came in. A venous Doppler study has been done and report is pending with prior history of DVT in the left leg several years ago and had completed a course of anticoagulation at that time. Patient also states that her cat scratched her leg and she has history of nonhealing wound to the left lower extremity for which she followed with Dr. Huff until healed which was greater than 1 year ago. As noted the patient has evidence of a cellulitis which is likely bacteremic having evidence of gram-positive cocci in her blood. However there is also evidence of a deep venous thrombosis to the left lower extremity which is new. She has no other new complaints today, her fever has improved. Patient is feeling somewhat better today. Still has fatigue and pain to the left leg. She however developed a rash especially on her upper extremities that is pruritic. Was given a dose of Benadryl with some slight improvement Objective - Vital Signs Vital signs: Vital Signs Temperature is 98.2 Blood pressure is 146/85 Heart rate is 93 Respiratory rate is 16 Pulse ox 94% - Exam Gen: This is a morbidly obese 61-year-old female. She is found in bed and appears to be comfortable. No acute distress noted. HEENT: Head is atraumatic, normocephalic. Pupils equal, round. Sclerae is anicteric. Conjunctiva pink. Mucous members of the mouth are moist. No thrush noted. NECK: Supple. No JVD. No lymphadenopathy. No thyromegaly. LUNGS: Clear to auscultation. No wheezes or rhonchi. No intercostal retractions. HEART: Regular rate and rhythm. No murmur. ABDOMEN: Soft. Obese. Bowel sounds are present. No masses. No tenderness. No redness under abdominal folds. EXTREMITIES: 3+ pedal edema to the left foot and lower extremity with erythema extending to below the knee with warmth and extreme tenderness to touch. Patient has healing wound to the fourth toe dorsal surface. The erythema to the Area is slightly improved over the erythema on the thigh area is increased. There is also an area of increased induration just proximal to the knee medially on the thigh. Skin: Evidence of an erythematous rash to the bilateral upper extremities, after the Benadryl the brace nature apparently has improved. It is still mildly pruritic no new open ulcers are seen in the upper extremities. Erythema is also noticed on her face, upper chest and back No active drainage. Dorsalis pedis is +2 bilaterally. Right foot has pedal edema. There is mild erythema on the posterior area above the ankle. No warmth noted to this area. NEUROLOGICAL: Patient is awake, alert and oriented x3 - Labs CBC & Chem 7: 01/31/17 07:25 01/31/17 07:25 Labs: Abnormal Lab Results - Last 24 Hours (Table) 1001/31/17 01/31/17 Range/Units 11:47 17:22 20:35 POC Glucose (mg/dL) 231 H 161 H 257 H (75-99) mg/dL 01/31/17 02/01/17 Range/Units 21:03 07:11 POC Glucose (mg/dL) 277 H 239 H (75-99) mg/dL Microbiology - Last 24 Hours (Table) 01/30/17 13:37 Blood Culture - Preliminary Blood No Growth after 24 hours 01/29/17 07:31 Blood Culture - Preliminary Blood No Growth after 48 hours Laboratory Results WBC 10.0 k/uL (3.8-10.6) 01/31/17 07:25 RBC 3.49 m/uL (3.80-5.40) L 01/31/17 07:25 Hgb 11.2 gm/dL (11.4-16.0) L 01/31/17 07:25 Hct 35.3 % (34.0-46.0) 01/31/17 07:25 MCV 101.4 fL (80.0-100.0) H 01/31/17 07:25 MCH 32.2 pg (25.0-35.0) 01/31/17 07:25 MCHC 31.7 g/dL (31.0-37.0) 01/31/17 07:25 RDW 15.7 % (11.5-15.5) H 01/31/17 07:25 Plt Count 228 k/uL (150-450) 01/31/17 07:25 Neutrophils % 81 % 01/28/17 03:51 Lymphocytes % 12 % 01/28/17 03:51 Monocytes % 5 % 01/28/17 03:51 Eosinophils % 0 % 01/28/17 03:51 Basophils % 0 % 01/28/17 03:51 Neutrophils # 5.9 k/uL (1.3-7.7) 01/28/17 03:51 Lymphocytes # 0.9 k/uL (1.0-4.8) L 01/28/17 03:51 Monocytes # 0.4 k/uL (0-1.0) 01/28/17 03:51 Eosinophils # 0.0 k/uL (0-0.7) 01/28/17 03:51 Basophils # 0.0 k/uL (0-0.2) 01/28/17 03:51 Macrocytosis Slight 01/31/17 07:25 Sodium 138 mmol/L (137-145) 01/31/17 07:25 Potassium 3.5 mmol/L (3.5-5.1) 01/31/17 07:25 Chloride 105 mmol/L (98-107) 01/31/17 07:25 Carbon Dioxide 22 mmol/L (22-30) 01/31/17 07:25 Anion Gap 11 mmol/L 01/31/17 07:25 BUN 10 mg/dL (7-17) 01/31/17 07:25 Creatinine 0.61 mg/dL (0.52-1.04) 01/31/17 07:25 Est GFR (MDRD) Af Amer >60 (>60 ml/min/1.73 sqM) 01/31/17 07:25 Est GFR (MDRD) Non-Af >60 (>60 ml/min/1.73 sqM) 01/31/17 07:25 Glucose 127 mg/dL (74-99) H 01/31/17 07:25 POC Glucose (mg/dL) 239 mg/dL (75-99) H 02/01/17 07:11 POC Glu Copy Center Associate ID Tiarra Morales 02/01/17 07:[address] Glu mg/dL 146 mg/dL 01/27/17 18:26 Hemoglobin A1c 6.7 % (4.2-6.1) H 01/27/17 18:26 Lactic Ac Sepsis Rflx Y 01/27/17 18:58 Plasma Lactic Acid Amrik 1.1 mmol/L (0.7-2.0) 01/30/17 16:19 Calcium 7.7 mg/dL (8.4-10.2) L 01/31/17 07:25 Total Bilirubin 0.4 mg/dL (0.2-1.3) 01/28/17 03:51 AST 21 U/L (14-36) 01/28/17 03:51 ALT 37 U/L (9-52) 01/28/17 03:51 Alkaline Phosphatase 89 U/L (38-126) 01/28/17 03:51 Total Protein 5.1 g/dL (6.3-8.2) L 01/28/17 03:51 Albumin 2.7 g/dL (3.5-5.0) L 01/28/17 03:51 Urine Color Yellow 01/27/17 19:31 Urine Appearance Clear (Clear) 01/27/17 19:31 Urine pH 6.5 (5.0-8.0) 01/27/17 19:31 Ur Specific [place] 1.015 (1.001-1.035) 01/27/17 19:31 Urine Protein 1+ (Negative) H 01/27/17 19:31 Urine Glucose (UA) 4+ (Negative) H 01/27/17 19:31 Urine Ketones 2+ (Negative) H 01/27/17 19:31 Urine Blood Negative (Negative) 01/27/17 19:31 Urine Nitrite Negative (Negative) 01/27/17 19:31 Urine Bilirubin Negative (Negative) 01/27/17 19:31 Urine Urobilinogen <2.0 mg/dL (<2.0) 01/27/17 19:31 Ur Leukocyte Esterase Negative (Negative) 01/27/17 19:31 Urine WBC 2 /hpf (0-5) 01/27/17 19:31 Amorphous Sediment Occasional /hpf (None) H 01/27/17 19:31 Urine Mucus Occasional /hpf (None) H 01/27/17 19:31 Acetone, Qual Negative (Negative) 01/27/17 18:26 Microbiology 01/30/17 13:37 Blood Blood Culture - Preliminary No Growth after 24 hours 01/29/17 07:31 Blood Blood Culture - Preliminary No Growth after 48 hours 01/28/17 11:59 Blood Blood Culture Gram Stain - Final 01/28/17 11:59 Blood Blood Culture - Final Staphylococcus aureus 01/27/17 18:26 Blood Blood Culture Gram Stain - Final 01/27/17 18:26 Blood Blood Culture - Final Methicillin resist S. aureus 01/28/17 11:59 Blood Blood Culture - Final 01/27/17 19:31 Urine,Catheterized Urine Culture - Final 01/27/17 18:26 Blood Blood Culture - Final Assessment and Plan (1) Cellulitis of left leg Narrative/Plan: 61-year-old female who has a history of significant degenerative joint disease and wanting to have a right total knee arthroplasty presented hospital with evidence of synovitis of the left leg in fever. She's been without evidence of staph aureus bacteremia likely from her cellulitis. Antimicrobial therapy is in process with daptomycin until we have further culture data. There is evidence of the deep venous thrombosis to the left leg which is acute in new. She is being anticoagulated. Follow blood cultures have been requested. If she has persistently positive blood cultures will be to concerned to an infected thrombus in the left lower limb. She is however doing somewhat better today. Leukocytosis is improving. Fevers improving. Once bacteremia clears will need IV access to complete her course of antibiotic therapy for her staph bacteremia. The case is discussed with cardiology. Transthoracic echocardiogram appears to be normal. Patient does have reasons for her current bacteremia. If it does not clear then will need to have further interventions and possibly a SOCORRO. At this time it does appear the bacteremia is cleared. Without any further interventions at this time. The patient has developed significant rash concern that it is from daptomycin, thus is converted to Ceftaroline 600 mg IV piggyback every 12 hours. Benadryl will be continued. The area of somewhat intense erythema to the distal thigh that is indurated will be monitored. There is already duplex scan revealing evidence of deep venous thrombosis. If the site continues to worsen she may need a vascular surgery consult. Status: Acute (2) Staphylococcus aureus bacteremia Status: Acute (3) Fever Status: Acute (4) Leukocytosis Status: Acute
[2017-02-01] MEDS: SENNOSIDES-DOCUSATE SODIUM 1 EACH TAB PO SCH (09:37)
--- NOTE | 2017-02-01 11:52 | P.PN ---
Subjective patient was admitted for bacteremia with gram-positive cocci, present to staph aureus in the blood cultures repeat cultures are so far negative patient was started on daptomycin patient has left lower limb cellulitis patient is still complaining of severe burning sensation in that area. 01/30/2017 Patient's repeat blood cultures are positive as well because of which I'll opt another repeat blood cultures today and tomorrow discussed with the cardiology patient will need a SOCORRO will obtain an echocardiogram first to see if there is any significant amount ETB will be done tomorrow orders will be on Thursday and still feels tired and fatigued 01/31/2017 patient is feeling much better echo cardiac murmur essentially within normal limits. 02/01/2017 Significant changes combative yesterday patient was started on Ceftin again because of her rash which was believed to be secondary to daptomycin Patient denied any fever denied any chest pain denied any nausea denied any vomiting denied any abdominal pain and new focal weakness. Objective - Vital Signs Vital signs: Vital Signs Temp 98.2 F 02/01/17 07:00 Pulse 93 02/01/17 07:00 Resp 16 02/01/17 07:00 BP 146/85 02/01/17 07:00 Pulse Ox 93 L 02/01/17 07:00 Intake & Output 01/31/17 02/01/17 02/01/17 18:59 06:59 18:59 Intake Total 200 Balance 200 Weight 99.79 kg Intake: Oral 200 Other: Voiding Method Bedpan Bedpan # Voids 1 2 # Bowel Movements 0 - Exam GENERAL: The patient is alert and oriented x3, not in any acute distress. Well developed, well nourished. HEENT: Pupils are round and equally reacting to light. EOMI. No scleral icterus. No conjunctival pallor. Normocephalic, atraumatic. No pharyngeal erythema. No thyromegaly. CARDIOVASCULAR: S1 and S2 present. No murmurs, rubs, or gallops. PULMONARY: Chest is clear to auscultation, no wheezing or crackles. ABDOMEN: Soft, nontender, nondistended, normoactive bowel sounds. No palpable organomegaly. MUSCULOSKELETAL: No joint swelling or deformity. EXTREMITIES: She does have extensive redness of the left leg circumferentialredness appears to be better with couple skin breakdowns but doesn't appear to be infected ulcers. NEUROLOGICAL: Gross neurological examination did not reveal any focal deficits. SKIN: No rashes. - Labs CBC & Chem 7: 01/31/17 07:25 01/31/17 07:25 Labs: Abnormal Lab Results - Last 24 Hours (Table) 01/31/17 01/31/17 01/31/17 Range/Units 11:47 17:22 20:35 POC Glucose (mg/dL) 231 H 161 H 257 H (75-99) mg/dL 01/31/17 02/01/17 Range/Units 21:03 07:11 POC Glucose (mg/dL) 277 H 239 H (75-99) mg/dL Microbiology - Last 24 Hours (Table) 01/29/17 07:31 Blood Culture - Preliminary Blood No Growth after 72 hours 01/31/17 07:25 Blood Culture - Preliminary Blood No Growth after 24 hours 01/30/17 13:37 Blood Culture - Preliminary Blood No Growth after 24 hours Assessment and Plan Plan: #1 severe sepsis and bacteremia: Secondary to left lower limb cellulitis . Blood cultures are positive for methicillin-resistant staph aureus and patient is on cefteroline patient had persistent bacteremia will need to rule out bacteremia and endocarditis. Patient has pain in the back but that is chronic. Patient is feeling better so far blood cultures from [facility] are negative for 72 hrshours #2 uncontrolled blood sugars: Type 2 diabetes mellitus, secondary to infection patient will be resumed on her home regimen titrate the insulin depending on her requirement for sliding scale. #3 hyponatremia secondary to hyperglycemia and intravascular volume depletion. Resolved now #4 DVT of the left lower extremity: Patient will be on xarelto. Patient does have history of DVT in the past #5 hyperlipidemia #6 hypertension #7 hypothyroidism #8 osteoarthritis For above-mentioned chronic medical problems patient will be resumed on her appropriate home medications.
[2017-02-01] MEDS: IPRATROPIUM-ALBUTEROL 3 ML NEB INHALATION PRN ×3 (11:56→19:34)
[2017-02-01] MEDS: HYDROcodone/APAP 10-325MG 1 EACH TAB PO PRN ×3 (12:17→23:49)
[2017-02-01 12:25] LABS: Glucose,Whole Blood 226 mg/dL (75-99)
[2017-02-01 17:03] LABS: Glucose,Whole Blood 216 mg/dL (75-99)
[2017-02-01] MEDS: SYMBICORT 160-4.5 MCG INHALER INHALATION SCH (19:34)
[2017-02-01 21:00] LABS: Glucose,Whole Blood 273 mg/dL (75-99)
[2017-02-01] MEDS: SILVER sulfADIAZINE Cream 400 GM 1 APPLIC APPLIC TOPICAL SCH (22:05)
[2017-02-02] MEDS: LEVOTHYROXINE 137 MCG TAB PO SCH (05:50)
[2017-02-02 07:28] LABS: Glucose,Whole Blood 120 mg/dL (75-99)
[2017-02-02] MEDS: INSULIN LISPRO (humaLOG) 300 UNIT/3 ML VIAL SQ SCH ×4 (07:32→21:37)
[2017-02-02] MEDS: SYMBICORT 160-4.5 MCG INHALER INHALATION SCH ×2 (08:06→19:33)
[2017-02-02] MEDS: INSULIN GLARGINE 100 UNIT/ML 10 ML VIAL SQ SCH (08:20)
[2017-02-02] MEDS: HYDROcodone/APAP 10-325MG 1 EACH TAB PO PRN (08:22)
[2017-02-02] MEDS: CEFTAROLINE FOSAMIL 600 MG in SODIUM CHLORIDE 0.9% 250 ML IVPB SCH ×2 (08:22→21:39)
[2017-02-02] MEDS: PANTOPRAZOLE 40 MG TABLET PO SCH (08:23)
[2017-02-02] MEDS: RIVAROXABAN 15 MG TAB PO SCH ×2 (08:23→17:21)
[2017-02-02] MEDS: amLODIPine 5 MG TAB PO SCH (08:23)
[2017-02-02] MEDS: LINAGLIPTIN 5 MG TABLET PO SCH (08:23)
[2017-02-02] MEDS: DULoxetine HCL 60 MG CAPSULE.DR PO SCH (08:23)
[2017-02-02] MEDS: METOPROLOL TARTRATE 25 MG TAB PO SCH ×2 (08:24→21:39)
[2017-02-02] MEDS: SENNOSIDES-DOCUSATE SODIUM 1 EACH TAB PO SCH (08:24)
--- NOTE | 2017-02-02 11:24 | CONS ---
CONSULTATION REASON FOR CONSULTATION: Persistent bacteremia and possible SOCORRO. DATE OF CONSULTATION: 01/30/2017 This is a 61-year-old lady who was admitted to hospital with cellulitis, left lower extremity swelling and had gram-positive cocci and persistently positive blood cultures. Dr. Gordon called me asking me to do a transesophageal echo on her. When I came to evaluate the patient, Dr. Alexandra the Infectious Disease health and safety consultant was at the bedside and he felt that there is no need for a SOCORRO at this time, but he would consider SOCORRO if she continues to have positive blood cultures in spite of adequate therapy. He thinks the source of bacteremia is related to the cellulitis and possible infected thrombus in the leg. Patient denies chest pain, difficulty in breathing or palpitations. A 2D echo did not show significant valvular heart disease or any significant vegetations. PAST MEDICAL HISTORY: Significant for diabetes, hypertension, dyslipidemia, DVT, osteoarthritis. ALLERGIES: There are no known drug allergies. MEDICATIONS: At home include Lipitor, Merrick, Motrin, insulin, Lopressor, metformin, Cymbalta, Amaryl, Synthroid, Norvasc, Januvia. . FAMILY HISTORY: Negative for premature coronary artery disease. SOCIAL HISTORY: Negative for current smoking, ETOH abuse or drug abuse. REVIEW OF SYSTEMS: HEENT is unremarkable. CARDIAC: As described above. RESPIRATORY: Negative. GI: Negative. GENITOURINARY: Negative. ALLERGY: None. SKIN: Significant for cellulitis. MUSCULOSKELETAL Significant for cellulitis. PSYCHOSOCIAL: Negative. ENDOCRINE: Negative. HEMATOLOGICAL: Negative. PHYSICAL EXAM: Patient appeared comfortable at rest. Patient is afebrile. Heart rate is elevated at 90 to 100. Blood pressure is normal. There is no jugular venous distention. Chest exam reveals good air entry bilaterally. Heart exam reveals first and second heart sounds. No gallop. Abdomen is soft. Exam of extremities reveals left lower extremity cellulitis. EKG from admission reveals sinus rhythm with right bundle branch block. An echocardiogram showed normal LV function without significant valvular heart disease. ASSESSMENT: Cellulitis with septicemia. PLAN: I will perform transesophageal echo if patient has persistently positive blood cultures. Right now, I am going to hold off on the SOCORRO. Please call me back if and when you need a SOCORRO on this patient. MMODL / IJN: [id number] /
[2017-02-02 12:43] LABS: Glucose,Whole Blood 173 mg/dL (75-99)
[2017-02-02] MEDS: diphenhydrAMINE 25 MG CAP PO PRN (13:19)
--- NOTE | 2017-02-02 15:41 | P.PN ---
Subjective patient was admitted for bacteremia with gram-positive cocci, present to staph aureus in the blood cultures repeat cultures are so far negative patient was started on daptomycin patient has left lower limb cellulitis patient is still complaining of severe burning sensation in that area. 01/30/2017 Patient's repeat blood cultures are positive as well because of which I'll opt another repeat blood cultures today and tomorrow discussed with the cardiology patient will need a SOCORRO will obtain an echocardiogram first to see if there is any significant amount ETB will be done tomorrow orders will be on Thursday and still feels tired and fatigued 01/31/2017 patient is feeling much better echo cardiac murmur essentially within normal limits. 02/01/2017 Significant changes compared to yesterday patient was started on Ceftin again because of her rash which was believed to be secondary to daptomycin 02/02/2017 T events patient is fairly doing well is on IV Cefteroline early in still has some redness in the left leg possibility of discharge tomorrow on IV antibiotics Patient denied any fever denied any chest pain denied any nausea denied any vomiting denied any abdominal pain and new focal weakness. Objective - Vital Signs Vital signs: Vital Signs Temp 98.9 F 02/02/17 07:00 Pulse 94 02/02/17 07:00 Resp 16 02/02/17 07:00 BP 175/79 02/02/17 07:00 Pulse Ox 95 02/02/17 08:06 Intake & Output 02/01/17 02/02/17 02/02/17 18:59 06:59 18:59 Intake Total 200 Balance 200 Weight 99.79 kg 99.79 kg Intake: Oral 200 Other: Voiding Method Bedside Commode Bedside Commode Bedpan Bedpan # Voids 1 1 # Bowel Movements 1 - Exam GENERAL: The patient is alert and oriented x3, not in any acute distress. Well developed, well nourished. HEENT: Pupils are round and equally reacting to light. EOMI. No scleral icterus. No conjunctival pallor. Normocephalic, atraumatic. No pharyngeal erythema. No thyromegaly. CARDIOVASCULAR: S1 and S2 present. No murmurs, rubs, or gallops. PULMONARY: Chest is clear to auscultation, no wheezing or crackles. ABDOMEN: Soft, nontender, nondistended, normoactive bowel sounds. No palpable organomegaly. MUSCULOSKELETAL: No joint swelling or deformity. EXTREMITIES: She does have extensive redness of the left leg circumferentialredness appears to be better with couple skin breakdowns but doesn't appear to be infected ulcers. NEUROLOGICAL: Gross neurological examination did not reveal any focal deficits. SKIN: No rashes. - Labs CBC & Chem 7: 01/31/17 07:25 01/31/17 07:25 Labs: Abnormal Lab Results - Last 24 Hours (Table) 02/01/17 02/01/17 02/02/17 Range/Units 16:48 20:55 07:08 POC Glucose (mg/dL) 216 H 273 H 120 H (75-99) mg/dL 02/02/17 Range/Units 12:19 POC Glucose (mg/dL) 173 H (75-99) mg/dL Microbiology - Last 24 Hours (Table) 01/29/17 07:31 Blood Culture - Preliminary Blood No Growth after 96 hours 01/31/17 07:25 Blood Culture - Preliminary Blood No Growth after 48 hours 01/27/17 18:26 Blood Culture Gram Stain - Final Blood Blood Culture - Preliminary Staphylococcus aureus 01/30/17 13:37 Blood Culture - Preliminary Blood No Growth after 48 hours Assessment and Plan Plan: #1 severe sepsis and bacteremia: Secondary to left lower limb cellulitis . Blood cultures are positive for methicillin-resistant staph aureus and patient is on cefteroline patient had persistent bacteremia will need to rule out bacteremia and endocarditis. Patient has pain in the back but that is chronic. Patient is feeling better so far blood cultures from [facility] are negative for more than 96 hours #2 uncontrolled blood sugars: Type 2 diabetes mellitus, secondary to infection patient will be resumed on her home regimen titrate the insulin depending on her requirement for sliding scale. #3 hyponatremia secondary to hyperglycemia and intravascular volume depletion. Resolved now #4 DVT of the left lower extremity: Patient will be on xarelto. Patient does have history of DVT in the past #5 hyperlipidemia #6 hypertension #7 hypothyroidism #8 osteoarthritis For above-mentioned chronic medical problems patient will be resumed on her appropriate home medications.
[2017-02-02 17:15] LABS: Glucose,Whole Blood 87 mg/dL (75-99)
[2017-02-02 20:56] LABS: Glucose,Whole Blood 111 mg/dL (75-99)
--- NOTE | 2017-02-02 21:24 | P.PN ---
Subjective Progress Note Date: 02/02/17 Principal diagnosis: Bacteremia This is a 61-year-old female who is well-known to ID service and was recently seen in the office regarding clearance for right knee arthroplasty. Patient did not have any difficulties at that time and was cleared for surgery which was to be scheduled. Patient states that she had onset of pain, redness and swelling to the left lower extremity on January 25 and came into [facility] emergency center for evaluation. She was diagnosed with cellulitis and placed on Bactrim. She states the pain, redness and swelling continued to worsen despite taking Bactrim. She came back to [facility] emergency center on January 27. She was positive for signs of sepsis with temperature 103.3, tachycardia, lactic acid was initially 3.7 and is now 1.9. Chest x-ray showed mild central vascular congestion with no infiltrate. Patient states her blood sugar has been running very high which is abnormal for her as her hemoglobin A1c is 6.7. Albumin noted be 2.7, sodium 129. Acetone was negative. Urinalysis was clear with nitrate and leukoesterase negative. Patient denies any urinary symptoms. She does states she had vomiting a couple days ago but none at this time. She has decreased appetite and mild nausea. She also complains of significant weakness and feeling tired. She does have some shortness of breath but no cough or sputum production and no chest pain. She is on oxygen at this time but not on oxygen at home. Patient was started on Unasyn and vancomycin and admitted to the [facility] floor. 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 Gordon. Patient states that she has had no improvement of the redness and edema in the left leg and it feels actually worse from when she came in. A venous Doppler study has been done and report is pending with prior history of DVT in the left leg several years ago and had completed a course of anticoagulation at that time. Patient also states that her cat scratched her leg and she has history of nonhealing wound to the left lower extremity for which she followed with Dr. Huff until healed which was greater than 1 year ago. As noted the patient has evidence of a cellulitis which is likely bacteremic having evidence of gram-positive cocci in her blood. However there is also evidence of a deep venous thrombosis to the left lower extremity which is new. She has no other new complaints today, her fever has improved. Patient is feeling somewhat better today. Still has fatigue and pain to the left leg. She however developed a rash especially on her upper extremities that is pruritic. Was given a dose of Benadryl with some slight improvement antimicrobial therapy was changed from daptomycin to Ceftaroline. Patient doesn 't believe that she somewhat better. Some minimal residual rash is still Objective - Vital Signs Vital signs: Vital Signs Temp 98.7 F 02/02/17 15:00 Pulse 88 02/02/17 15:00 Resp 16 02/02/17 15:00 BP 118/69 02/02/17 15:00 Pulse Ox 92 L 02/02/17 15:00 Intake & Output 02/02/17 02/02/17 02/03/17 06:59 18:59 06:59 Intake Total 400 Balance 400 Weight 99.79 kg Intake: Oral 400 Other: Voiding Method Bedside Commode Bedpan # Voids 1 2 # Bowel Movements 0 - Exam Gen: This is a morbidly obese 61-year-old female. She is found in bed and appears to be comfortable. No acute distress noted. HEENT: Head is atraumatic, normocephalic. Pupils equal, round. Sclerae is anicteric. Conjunctiva pink. Mucous members of the mouth are moist. No thrush noted. NECK: Supple. No JVD. No lymphadenopathy. No thyromegaly. LUNGS: Clear to auscultation. No wheezes or rhonchi. No intercostal retractions. HEART: Regular rate and rhythm. No murmur. ABDOMEN: Soft. Obese. Bowel sounds are present. No masses. No tenderness. No redness under abdominal folds. EXTREMITIES: 3+ pedal edema to the left foot and lower extremity with erythema extending to below the knee with warmth and extreme tenderness to touch. Patient has healing wound to the fourth toe dorsal surface. The erythema to the Area is slightly improved over the erythema on the thigh area is increased. There is also an area of induration just proximal to the knee medially on the thigh. Skin: Evidence of improvement of the erythematous rash to the bilateral upper extremities, after the Benadryl It is still mildly pruritic no new open ulcers are seen in the upper extremities. Erythema is improved of the face upper chest and back. No further hives are seen. No active drainage. Dorsalis pedis is +2 bilaterally. Right foot has pedal edema. There is mild erythema on the posterior area above the ankle. No warmth noted to this area. NEUROLOGICAL: Patient is awake, alert and oriented x3 - Labs CBC & Chem 7: 01/31/17 07:25 01/31/17 07:25 Labs: Abnormal Lab Results - Last 24 Hours (Table) 02/02/17 02/02/17 02/02/17 Range/Units 07:08 12:19 20:51 POC Glucose (mg/dL) 120 H 173 H 111 H (75-99) mg/dL Microbiology - Last 24 Hours (Table) 01/30/17 13:37 Blood Culture - Preliminary Blood No Growth after 72 hours 01/29/17 07:31 Blood Culture - Preliminary Blood No Growth after 96 hours 01/31/17 07:25 Blood Culture - Preliminary Blood No Growth after 48 hours 01/27/17 18:26 Blood Culture Gram Stain - Final Blood Blood Culture - Preliminary Staphylococcus aureus Laboratory Results WBC 10.0 k/uL (3.8-10.6) 01/31/17 07:25 RBC 3.49 m/uL (3.80-5.40) L 01/31/17 07:25 Hgb 11.2 gm/dL (11.4-16.0) L 01/31/17 07:25 Hct 35.3 % (34.0-46.0) 01/31/17 07:25 MCV 101.4 fL (80.0-100.0) H 01/31/17 07:25 MCH 32.2 pg (25.0-35.0) 01/31/17 07:25 MCHC 31.7 g/dL (31.0-37.0) 01/31/17 07:25 RDW 15.7 % (11.5-15.5) H 01/31/17 07:25 Plt Count 228 k/uL (150-450) 01/31/17 07:25 Neutrophils % 81 % 01/28/17 03:51 Lymphocytes % 12 % 01/28/17 03:51 Monocytes % 5 % 01/28/17 03:51 Eosinophils % 0 % 01/28/17 03:51 Basophils % 0 % 01/28/17 03:51 Neutrophils # 5.9 k/uL (1.3-7.7) 01/28/17 03:51 Lymphocytes # 0.9 k/uL (1.0-4.8) L 01/28/17 03:51 Monocytes # 0.4 k/uL (0-1.0) 01/28/17 03:51 Eosinophils # 0.0 k/uL (0-0.7) 01/28/17 03:51 Basophils # 0.0 k/uL (0-0.2) 01/28/17 03:51 Macrocytosis Slight 01/31/17 07:25 Sodium 138 mmol/L (137-145) 01/31/17 07:25 Potassium 3.5 mmol/L (3.5-5.1) 01/31/17 07:25 Chloride 105 mmol/L (98-107) 01/31/17 07:25 Carbon Dioxide 22 mmol/L (22-30) 01/31/17 07:25 Anion Gap 11 mmol/L 01/31/17 07:25 BUN 10 mg/dL (7-17) 01/31/17 07:25 Creatinine 0.61 mg/dL (0.52-1.04) 01/31/17 07:25 Est GFR (MDRD) Af Amer >60 (>60 ml/min/1.73 sqM) 01/31/17 07:25 Est GFR (MDRD) Non-Af >60 (>60 ml/min/1.73 sqM) 01/31/17 07:25 Glucose 127 mg/dL (74-99) H 01/31/17 07:25 POC Glucose (mg/dL) 111 mg/dL (75-99) H 02/02/17 20:51 POC Glu [employer] EBONY Mya Keita 02/02/17 20:[address] Glu mg/dL 146 mg/dL 01/27/17 18:26 Hemoglobin A1c 6.7 % (4.2-6.1) H 01/27/17 18:26 Lactic Ac Sepsis Rflx Y 01/27/17 18:58 Plasma Lactic Acid Amrik 1.1 mmol/L (0.7-2.0) 01/30/17 16:19 Calcium 7.7 mg/dL (8.4-10.2) L 01/31/17 07:25 Total Bilirubin 0.4 mg/dL (0.2-1.3) 01/28/17 03:51 AST 21 U/L (14-36) 01/28/17 03:51 ALT 37 U/L (9-52) 01/28/17 03:51 Alkaline Phosphatase 89 U/L (38-126) 01/28/17 03:51 Total Protein 5.1 g/dL (6.3-8.2) L 01/28/17 03:51 Albumin 2.7 g/dL (3.5-5.0) L 01/28/17 03:51 Urine Color Yellow 01/27/17 19:31 Urine Appearance Clear (Clear) 01/27/17 19:31 Urine pH 6.5 (5.0-8.0) 01/27/17 19:31 Ur Specific [place] 1.015 (1.001-1.035) 01/27/17 19:31 Urine Protein 1+ (Negative) H 01/27/17 19:31 Urine Glucose (UA) 4+ (Negative) H 01/27/17 19:31 Urine Ketones 2+ (Negative) H 01/27/17 19:31 Urine Blood Negative (Negative) 01/27/17 19:31 Urine Nitrite Negative (Negative) 01/27/17 19:31 Urine Bilirubin Negative (Negative) 01/27/17 19:31 Urine Urobilinogen <2.0 mg/dL (<2.0) 01/27/17 19:31 Ur Leukocyte Esterase Negative (Negative) 01/27/17 19:31 Urine WBC 2 /hpf (0-5) 01/27/17 19:31 Amorphous Sediment Occasional /hpf (None) H 01/27/17 19:31 Urine Mucus Occasional /hpf (None) H 01/27/17 19:31 Acetone, Qual Negative (Negative) 01/27/17 18:26 Microbiology 01/30/17 13:37 Blood Blood Culture - Preliminary No Growth after 72 hours 01/29/17 07:31 Blood Blood Culture - Preliminary No Growth after 96 hours 01/31/17 07:25 Blood Blood Culture - Preliminary No Growth after 48 hours 01/27/17 18:26 Blood Blood Culture Gram Stain - Final 01/27/17 18:26 Blood Blood Culture - Preliminary Staphylococcus aureus 01/28/17 11:59 Blood Blood Culture Gram Stain - Final 01/28/17 11:59 Blood Blood Culture - Final Staphylococcus aureus 01/28/17 11:59 Blood Blood Culture - Final 01/27/17 19:31 Urine,Catheterized Urine Culture - Final 01/27/17 18:26 Blood Blood Culture - Final Assessment and Plan (1) Cellulitis of left leg Narrative/Plan: 61-year-old female who has a history of significant degenerative joint disease and wanting to have a right total knee arthroplasty presented hospital with evidence of synovitis of the left leg in fever. She's been without evidence of staph aureus bacteremia likely from her cellulitis. Antimicrobial therapy is in process with daptomycin until we have further culture data. There is evidence of the deep venous thrombosis to the left leg which is acute in new. She is being anticoagulated. Follow blood cultures have been requested. If she has persistently positive blood cultures will be to concerned to an infected thrombus in the left lower limb. She is however doing somewhat better today. Leukocytosis is improving. Fevers improving. Once bacteremia clears will need IV access to complete her course of antibiotic therapy for her staph bacteremia. The case is discussed with cardiology. Transthoracic echocardiogram appears to be normal. Patient does have reasons for her current bacteremia. If it does not clear then will need to have further interventions and possibly a SOCORRO. At this time it does appear the bacteremia is cleared. Without any further interventions at this time. The patient has developed significant rash concern that it is from daptomycin, thus is converted to Ceftaroline 600 mg IV piggyback every 12 hours. Benadryl will be continued. The area of somewhat intense erythema to the distal thigh that is indurated will be monitored. There is already duplex scan revealing evidence of deep venous thrombosis. The site of induration and erythema in the thigh has stabilized. We'll monitor and determine if she'll need an outpatient vascular surgery consult. At this time the [facility] lab has verified that the cultures are all MSSA, they have corrected the 1 MRSA culture to be MSSA. Thus antimicrobial therapy is altered to ceftriaxone 2 g a day. This is planned for in the outpatient setting. Given her level of illness at least 28 days of therapy requested. Weekly blood work requested. We'll follow-up within a week of discharge. Status: Acute (2) Staphylococcus aureus bacteremia Status: Acute (3) Fever Status: Acute (4) Leukocytosis Status: Acute
[2017-02-02] MEDS: SILVER sulfADIAZINE Cream 400 GM 1 APPLIC APPLIC TOPICAL SCH (21:39)
[2017-02-03] MEDS: HYDROcodone/APAP 10-325MG 1 EACH TAB PO PRN ×3 (01:06→13:51)
[2017-02-03] MEDS: LEVOTHYROXINE 137 MCG TAB PO SCH (06:02)
[2017-02-03 07:24] LABS: Glucose,Whole Blood 146 mg/dL (75-99)
[2017-02-03 07:25] VITALS: BP 129/79; RESP 18; TEMP 97.1
[2017-02-03] MEDS: INSULIN LISPRO (humaLOG) 300 UNIT/3 ML VIAL SQ SCH ×2 (07:30→13:36)
[2017-02-03] MEDS: PANTOPRAZOLE 40 MG TABLET PO SCH (07:31)
[2017-02-03] MEDS: amLODIPine 5 MG TAB PO SCH (07:31)
[2017-02-03] MEDS: CEFTAROLINE FOSAMIL 600 MG in SODIUM CHLORIDE 0.9% 250 ML IVPB SCH (07:31)
[2017-02-03] MEDS: DULoxetine HCL 60 MG CAPSULE.DR PO SCH (07:31)
[2017-02-03] MEDS: RIVAROXABAN 15 MG TAB PO SCH (07:31)
[2017-02-03] MEDS: INSULIN GLARGINE 100 UNIT/ML 10 ML VIAL SQ SCH (07:32)
[2017-02-03] MEDS: METOPROLOL TARTRATE 25 MG TAB PO SCH (07:32)
[2017-02-03] MEDS: SENNOSIDES-DOCUSATE SODIUM 1 EACH TAB PO SCH (07:32)
[2017-02-03] MEDS: LINAGLIPTIN 5 MG TABLET PO SCH (07:32)
[2017-02-03] MEDS: IPRATROPIUM-ALBUTEROL 3 ML NEB INHALATION PRN (07:37)
[2017-02-03] MEDS: SYMBICORT 160-4.5 MCG INHALER INHALATION SCH (07:41)
[2017-02-03 07:51] VITALS: PULSE 86
[2017-02-03] MEDS ORDERED: LIDOCAINE 2% INJ 20 MG/ML (20 ML MDV) ONE (09:57)
[2017-02-03] MEDS ORDERED: LIDOCAINE 2% INJ 20 MG/ML SQ ONE (10:27)
--- NOTE | 2017-02-03 11:25 | IR ---
EXAMINATION TYPE: IR cvc insert >=5 years DATE OF EXAM: 02/03/2017 COMPARISON: NONE CLINICAL HISTORY: Infection Needs long-term intravenous access for antibiotics. PROCEDURE: After informed consent, the skin overlying the left brachial vein was localized with ultrasound and n oted to be compressible and patent. An ultrasound image was obtained and submitted on the patient's chart. The overlying skin was prepped and draped and Lidocaine was used for local anesthesia. A ski n randall was made with a scalpel. Access was gained to the vein under ultrasound guidance with a 21 ga uge needle and a 0.018 inch wire was advanced. Access site was dilated with Peel-Away sheath and cat heter tailored to the appropriate length and advanced such that the distal tip is at the cavoatrial j unction. Spot image was obtained verifying placement. Catheter was fixed to the skin with suture an d a sterile dressing was placed following hemostasis. Catheter was aspirated and flushed with saline . Patient was discharged in stable condition without complication. Maximal barrier technique is util ized. Ultrasound image is documented on the chart. Ultrasound used with sterile technique. Fluoro time and fluoroscopic images submitted to document procedure: 80 intraoperative C-arm images, 0.2 minutes fluoroscopy time IMPRESSION: STATUS POST ULTRASOUND AND FLUOROSCOPIC GUIDED PICC LINE PLACEMENT, READY FOR USE. THIS PROCEDURE WAS PERFORMED BY THE UNDERSIGNED.
[2017-02-03 12:42] LABS: Glucose,Whole Blood 102 mg/dL (75-99)
--- NOTE | 2017-02-03 17:27 | P.DS ---
Providers Date of admission: 01/27/17 19:48 Expected date of discharge: 02/03/17 Attending physician: Rios Gordon Consults: 01/28/17 11:40 Consult Physician Routine Consulting Provider: Eliot Alexandra Reason/Comments: Gram positive bacteremia Do you want consulting provider notified?: Yes Primary care physician: Amol [place] Hospital Course: Final Diagnoses: #1 severe sepsis and bacteremia: Secondary to left lower limb cellulitis . Blood cultures are positive for MSSA. #2 Type 2 diabetes mellitus, controlled. #3 hyponatremia secondary to hyperglycemia and intravascular volume depletion. Resolved now #4 DVT of the left lower extremity: Patient will be on xarelto. Patient does have history of DVT in the past #5 hyperlipidemia #6 hypertension #7 hypothyroidism #8 osteoarthritis Hospital course:Patient was admitted with left lower extremity cellulitis, bacteremia with gram-positive cocci, blood cultures initially reported MRSA ; corrected and and now reported as MSSA. Maintained on IV antibiotics as per infectious disease. PICC line placed for outpatient IV antibiotics. Evaluated by cardiology. Cardiology and infectious disease decided against SOCORRO at this time as repeat blood cultures negative. 2-D echo culture failed to report significant valvular heart disease or significant vegetation. Patient has been cleared for discharge by all consults. Patient is being discharged home in a stable condition with guarded prognosis. Microbiology 01/30/17 13:37 Blood Blood Culture - Preliminary No Growth after 96 hours 01/27/17 18:26 Blood Blood Culture Gram Stain - Final 01/27/17 18:26 Blood Blood Culture - Final Staphylococcus aureus 01/29/17 07:31 Blood Blood Culture - Preliminary No Growth after 120 hours 01/31/17 07:25 Blood Blood Culture - Preliminary No Growth after 72 hours 01/28/17 11:59 Blood Blood Culture Gram Stain - Final 01/28/17 11:59 Blood Blood Culture - Final Staphylococcus aureus 01/28/17 11:59 Blood Blood Culture - Final 01/27/17 19:31 Urine,Catheterized Urine Culture - Final 01/27/17 18:26 Blood Blood Culture - Final The impression and plan of care has been dictated as directed as a scribe. : I performed a history and examination of this patient, discussed the same with the dictator. I agree with the dictator's note ,documented as a scribe. Any additional findings or plans will be noted. Patient Condition at Discharge: Stable Plan - Discharge Summary New Discharge Prescriptions: New Rivaroxaban [Xarelto] 15 mg PO BID-W/MEALS #42 tab cefTRIAXone [Rocephin] 2,000 mg IVPB DAILY #28 vial Sennosides-Docusate Sodium [Senokot-S] 1 each PO DAILY #30 tab Budesonide-Formot 160-4.5 Mcg [Symbicort 160-4.5 Mcg Inhaler] 2 puff INHALATION RT-BID puff Continue HYDROcodone/APAP 10-325MG [[place] 10-325] 1 tab PO Q6H PRN PRN Reason: Pain Insulin Glargine [Lantus] 54 unit SQ DAILY metFORMIN HCL 1,000 mg PO BID Metoprolol Tartrate [Lopressor] 25 mg PO BID Hydrochlorothiazide [Hydrodiuril] 25 mg PO DAILY Atorvastatin [Lipitor] 20 mg PO DAILY amLODIPine [Norvasc] 5 mg PO DAILY Levothyroxine Sodium [Synthroid] 137 mcg PO DAILY Glimepiride [Amaryl] 4 mg PO AC-BRKFST Famotidine 20 mg PO DAILY DULoxetine HCL [Cymbalta] 60 mg PO DAILY sitaGLIPtin [Januvia] 100 mg PO DAILY Discontinued Ibuprofen [Motrin] 800 mg PO TID PRN PRN Reason: pain Discharge Medication List Atorvastatin [Lipitor] 20 mg PO DAILY 08/08/15 [History] HYDROcodone/APAP 10-325MG [[place] 10-325] 1 tab PO Q6H PRN 08/08/15 [History] Hydrochlorothiazide [Hydrodiuril] 25 mg PO DAILY 08/08/15 [History] Insulin Glargine [Lantus] 54 unit SQ DAILY 08/08/15 [History] Metoprolol Tartrate [Lopressor] 25 mg PO BID 08/08/15 [History] metFORMIN HCL 1,000 mg PO BID 08/08/15 [History] DULoxetine HCL [Cymbalta] 60 mg PO DAILY 01/27/17 [History] Famotidine 20 mg PO DAILY 01/27/17 [History] Glimepiride [Amaryl] 4 mg PO AC-BRKFST 01/27/17 [History] Levothyroxine Sodium [Synthroid] 137 mcg PO DAILY 01/27/17 [History] amLODIPine [Norvasc] 5 mg PO DAILY 01/27/17 [History] sitaGLIPtin [Januvia] 100 mg PO DAILY 01/27/17 [History] Rivaroxaban [Xarelto] 15 mg PO BID-W/MEALS #42 tab 01/29/17 [Rx] cefTRIAXone [Rocephin] 2,000 mg IVPB DAILY #28 vial 02/02/17 [Rx] Budesonide-Formot 160-4.5 Mcg [Symbicort 160-4.5 Mcg Inhaler] 2 puff INHALATION RT-BID puff 02/03/17 [Rx] Sennosides-Docusate Sodium [Senokot-S] 1 each PO DAILY #30 tab 02/03/17 [Rx] Follow up Appointment(s)/Referral(s): Eliot Alexandra MD [STAFF PHYSICIAN] - 02/18/17 9:30 am [facility], [NON-STAFF] - Amol Stvoall DO [Primary Care Provider] - 02/05/17 11:00 am Ambulatory/Diagnostic Orders: Basic Metabolic Panel [LAB.AMB] Location: Determined By Patient Complete Blood Count w/diff [LAB.AMB] Location: Determined By Patient Miscellaneous Lab Order [LAB.AMB] Location: Determined By Patient Patient Instructions/Handouts: Cellulitis (DC), Deep Venous Thrombosis (DC) Activity/Diet/Wound Care/Special Instructions: Antibx & wound care as per ID Discharge Disposition: HOME WITH HOME HEALTH SERVICES
== END 2017-02-03 16:30 | disposition home health service (06) | DRG 872 ==
LOC: EC 17:55 → 4MS4W 19:48
PROVIDERS: ADMIT Internal Medicine; ATTEND Internal Medicine
PROC: 3E0234Z Introduction of Serum, Toxoid and Vaccine into Muscle, Percutaneous Approach (ICD-10-PCS; principal; 2017-01-28)
PROC: B518ZZA Fluoroscopy of Superior Vena Cava, Guidance (ICD-10-PCS; 2017-02-03)
PROC: 02HV33Z Insertion of Infusion Device into Superior Vena Cava, Percutaneous Approach (ICD-10-PCS; 2017-02-03 10:15)
PROC: B548ZZA Ultrasonography of Superior Vena Cava, Guidance (ICD-10-PCS; 2017-02-03 10:15)
DX: A41.9 Sepsis, unspecified organism (principal); E87.2 Acidosis; I82.432 Acute embolism and thrombosis of left popliteal vein; E11.65 Type 2 diabetes mellitus with hyperglycemia; E87.1 Hypo-osmolality and hyponatremia; L03.116 Cellulitis of left lower limb; I82.812 Embolism and thrombosis of superficial veins of left lower extremity; R65.20 Severe sepsis without septic shock; Z23 Encounter for immunization; E87.8 Other disorders of electrolyte and fluid balance, not elsewhere classified; B95.61 Methicillin susceptible Staphylococcus aureus infection as the cause of diseases classified elsewhere; E86.0 Dehydration; I10 Essential (primary) hypertension; L29.9 Pruritus, unspecified; I45.10 Unspecified right bundle-branch block; E78.5 Hyperlipidemia, unspecified; E03.9 Hypothyroidism, unspecified; M19.91 Primary osteoarthritis, unspecified site; Z79.4 Long term (current) use of insulin; Z79.899 Other long term (current) drug therapy; Z86.14 Personal history of Methicillin resistant Staphylococcus aureus infection; Z90.710 Acquired absence of both cervix and uterus; Z87.891 Personal history of nicotine dependence; Z96.651 Presence of right artificial knee joint
CPT/HCPCS: 36415; 36569; 51701; 71020; 76937; 77001; 80048; 80053; 81001; 82009; 83036; 83605; 85025; 85027; 87040; 87077; 87086; 87186; 90715; 93005; 93306; 94640; 94760; 96365; 96366; 96367; 96374; 96375; 99284

== ENCOUNTER → 2018-08-27 | Outpatient (CLI) | payer MEDICARE ==
--- NOTE | 2018-08-27 15:56 | XR ---
EXAMINATION TYPE: XR tibia fibula LT DATE OF EXAM: 08/27/2018 CLINICAL HISTORY: pain TECHNIQUE: AP and lateral images of the left tibia and fibula are obtained. COMPARISON: None. FINDINGS: There is no acute fracture/dislocation evident. The joint spaces appear within normal rojas its. The overlying soft tissue appears unremarkable. Vascular calcifications identified. IMPRESSION: There is no acute fracture or dislocation seen. ICD 10 NO FRACTURE, INITIAL EVALUATION
== END | disposition home or self-care (01) ==
LOC: RADXRYALE 15:30
PROVIDERS: ATTEND Family Medicine
DX: S80.922A Unspecified superficial injury of left lower leg, initial encounter (principal)

== ENCOUNTER → 2019-05-03 | Outpatient (CLI) | payer MEDICARE ==
--- NOTE | 2019-05-03 11:48 | XR ---
EXAMINATION TYPE: XR tibia fibula LT DATE OF EXAM: 05/03/2019 CLINICAL HISTORY: Open wound of the anterior mid tibia left lower extremity edema and redness. TECHNIQUE: Two views of the left leg are obtained. COMPARISON: None. FINDINGS: There is no acute fracture or dislocation seen in the left tibia or fibula. The left knee and ankle joints appear aligned. There is focal soft tissue swelling of the anterior soft tissues ov erlying the mid tibia. No periosteal reaction of the tibia or cortical erosion. Severe atherosclerosi s noted. Joint space narrowing and marginal osteophytes of the medial and lateral compartments of the knee. IMPRESSION: Focal soft tissue swelling of the known soft tissue ulcer on the anterior mid tibia with out osseous erosion or periosteal reaction to suggest osteomyelitis. Extensive atherosclerosis sugges ting peripheral arterial disease. No acute fracture or dislocation seen in the left tibia or fibula.
== END | disposition home or self-care (01) ==
LOC: RADXRYALE 11:18
PROVIDERS: ATTEND Physician Assistant Medical
DX: L97.829 Non-pressure chronic ulcer of other part of left lower leg with unspecified severity (principal); I70.90 Unspecified atherosclerosis

== ENCOUNTER → 2019-05-27 | Outpatient (CLI) | payer MEDICARE ==
--- NOTE | 2019-05-27 15:24 | US ---
EXAMINATION TYPE: US venous doppler duplex LE LT DATE OF EXAM: 05/27/2019 2:49 PM COMPARISON: Ultrasound dated 02/18/2017 CLINICAL HISTORY: R60.9 Edema Z86.718 hx of other veinous thrombosis. Hx of DVT on blood thinners. SIDE PERFORMED: Left TECHNIQUE: The lower extremity deep venous system is examined utilizing real time linear array sonog mariela with graded compression, doppler sonography and color-flow sonography. VESSELS IMAGED: External Iliac Vein (EIV) Common Femoral Vein Deep Femoral Vein Greater Saphenous Vein * Femoral Vein Popliteal Vein Small Saphenous Vein * Proximal Calf Veins (* superficial vessels Left Leg: Negative for DVT Chronic old thrombus visualized in Popliteal Vein good flow seen. IMPRESSION: Chronic deep venous thrombosis within the left popliteal vein, incompletely occlusive as seen on the prior left lower extremity ultrasound.
== END | disposition home or self-care (01) ==
LOC: RADUSWWP 12:27
PROVIDERS: ATTEND Family Medicine
DX: I82.432 Acute embolism and thrombosis of left popliteal vein (principal); Z86.718 Personal history of other venous thrombosis and embolism
CPT/HCPCS: 93922

== ENCOUNTER → 2020-02-29 | Outpatient (CLI) | payer MEDICARE ==
--- NOTE | 2020-02-29 13:32 | US ---
EXAMINATION TYPE: US venous doppler duplex LE LT DATE OF EXAM: 02/29/2020 1:04 PM COMPARISON: 05/27/2019 CLINICAL HISTORY: M79.605 Pain Left Leg R60.9 Edema. hx chronic dvt in popliteal vein. On blood thin ners. SIDE PERFORMED: Left TECHNIQUE: The lower extremity deep venous system is examined utilizing real time linear array sonog mariela with graded compression, doppler sonography and color-flow sonography. VESSELS IMAGED: External Iliac Vein (EIV) Common Femoral Vein Deep Femoral Vein Greater Saphenous Vein * Femoral Vein Popliteal Vein Small Saphenous Vein * Proximal Calf Veins (* superficial vessels) Left Leg: Chronic appears DVT seen in popliteal vein with good flow seen. IMPRESSION: 1. Persistent eccentric nonoccluding thrombosis involving the left popliteal vein similar in pattern to the prior exam suggestive of chronic DVT.
== END | disposition home or self-care (01) ==
LOC: RADUSWWP 12:38
PROVIDERS: ATTEND Family Medicine
DX: I82.432 Acute embolism and thrombosis of left popliteal vein (principal); Z86.718 Personal history of other venous thrombosis and embolism

== ENCOUNTER → 2020-03-21 | Outpatient (CLI) | payer MEDICARE ==
--- NOTE | 2020-03-21 11:35 | XR ---
EXAMINATION TYPE: XR knee complete RT DATE OF EXAM: 03/21/2020 CLINICAL HISTORY: pain TECHNIQUE: Three views of the right knee are obtained. COMPARISON: None. FINDINGS: There is no acute fracture/dislocation. The tri-compartment joint spaces appear moderatel y narrowed. The overlying soft tissue appears unremarkable. IMPRESSION: There is no acute fracture or dislocation.ICD 10 NO FRACTURE, INITIAL EVALUATION
== END | disposition home or self-care (01) ==
LOC: RADXRYALE 11:00
PROVIDERS: ATTEND Physician Assistant Medical
DX: M25.561 Pain in right knee (principal)

== ENCOUNTER → 2020-06-13 | Outpatient (CLI) | payer MEDICARE ==
--- NOTE | 2020-06-13 11:26 | XR ---
EXAMINATION TYPE: XR abdomen 2V DATE OF EXAM: 06/13/2020 COMPARISON: NONE HISTORY: Pain TECHNIQUE: Single supine KUB image of the abdomen is obtained FINDINGS: Small bowel demonstrates no evidence for dilatation or air fluid levels. Gas and fecal material is seen in non-distended colon. No convincing evidence for pneumoperitoneum. No unusual calcifications. The lung bases are clear. The osseous structures are intact. IMPRESSION: 1. Overall nonobstructive bowel gas pattern.
== END | disposition home or self-care (01) ==
LOC: RADXRYALE 10:54
PROVIDERS: ATTEND Physician Assistant Medical
DX: R10.812 Left upper quadrant abdominal tenderness (principal); R31.9 Hematuria, unspecified
CPT/HCPCS: 74019; 80048; 85025; 87086

== ENCOUNTER → 2021-01-10 | Outpatient (CLI) | payer MEDICARE ==
--- NOTE | 2021-01-10 15:15 | US ---
EXAMINATION TYPE: US venous doppler duplex LE DATE OF EXAM: 01/10/2021 2:49 PM COMPARISON: Ultrasound [facility] 02-29-20 CLINICAL HISTORY: I82.411 Acute embolism and thrombosis of right fem. Pain in right knee, Hx of Left DVT SIDE PERFORMED: Bilateral TECHNIQUE: The lower extremity deep venous system is examined utilizing real time linear array sonog mariela with graded compression, doppler sonography and color-flow sonography. VESSELS IMAGED: Common Femoral Vein Deep Femoral Vein Greater Saphenous Vein * Femoral Vein Popliteal Vein Small Saphenous Vein * Proximal Calf Veins (* superficial vessels) Right Leg: Chronic DVT seen in Right Popliteal vein Left Leg: Chronic DVT seen in left popliteal vein Grayscale, color doppler, spectral doppler imaging performed of the deep veins of the bilateral lower extremities. Persistent incomplete compression and partial occlusion of the popliteal veins bilater ally. No expansile hyperechoic clot identified bilaterally. IMPRESSION: Partially occlusive chronic DVT distally bilaterally. No acute DVT noted.
== END | disposition home or self-care (01) ==
LOC: RADUSWWP 14:19
PROVIDERS: ATTEND Internal Medicine Hematology & Oncology
DX: I82.433 Acute embolism and thrombosis of popliteal vein, bilateral (principal)
CPT/HCPCS: 93970

== ENCOUNTER → 2021-03-12 | Outpatient (CLI) | payer MEDICARE ==
--- NOTE | 2021-03-14 13:52 | MM ---
Reason for exam: screening (asymptomatic). Last mammogram was performed 6 years and 3 months ago. History: Patient is postmenopausal. Physical Findings: A clinical breast exam by your physician is recommended on an annual basis and results should be correlated with mammographic findings. MG 3D Screening Mammo W/Cad Bilateral CC and MLO view(s) were taken. Prior study comparison: November 30, 2014, bilateral MG screening mammo w CAD. There are scattered fibroglandular densities. There is chronic nodularity in the right posterior upper outer quadrant. Scattered benign round, punctate and vascular calcifications. No significant changes when compared with prior studies. ASSESSMENT: Benign, BI-RAD 2 RECOMMENDATION: Routine screening mammogram of both breasts in 1 year.
== END | disposition home or self-care (01) ==
LOC: RADMAMWWP 16:13
PROVIDERS: ATTEND Family Medicine
DX: Z12.31 Encounter for screening mammogram for malignant neoplasm of breast (principal); Z78.0 Asymptomatic menopausal state
CPT/HCPCS: 77063; 77067

== ENCOUNTER 2021-04-24 12:09 | Inpatient (IN) | payer MEDICARE ==
--- NOTE | 2021-04-24 12:24 | ED ---
General Adult HPI - General Chief complaint: Shortness of Breath Stated complaint: COVID+,Diff Breathing Time Seen by Provider: 04/24/21 12:16 Source: patient, EMS Mode of arrival: EMS Limitations: no limitations - History of Present Illness Initial comments: Dictation was produced using [employer] dictation software. please excuse any grammatical, word or spelling errors. Chief Complaint: 65-year-old female presents emergency department for lethargy and shortness of breath History of Present Illness: Patient is 65-year-old female she has past medical history of DVTs, diabetes dyslipidemia hypertension. She tested positive for coronavirus 7 days ago. She received monoclonal antibodies 2 days ago. Patient is a porcine. History of present illness mostly obtained from EMS. EMS reports that patient was found to be rather lethargic at home. EMS was called by family. Upon initial arrival EMS reports the patient did appear cyanotic. She was placed on supplemental oxygen with improvements into the low 90s and high 80s. She was found to have low blood pressures with systolics bouncing in between 60s and 80s systolic. She is given a liter bolus with sustained improvement. Patient denies any pain complaints. She reports that she is benign L Yashira for several months to treat DVTs. She states she takes it to prevent future DVTs from forming. Patient denies any pain complaints. She states she has sore throat. The ROS documented in this emergency department record has been reviewed and confirmed by me. Those systems with pertinent positive or negative responses have been documented in the HPI. All other systems are other negative and/or noncontributory. PHYSICAL EXAM: General Impression: Alert and oriented x3, not in acute distress HEENT: Normocephalic atraumatic, extra-ocular movements intact, pupils equal and reactive to light bilaterally, mucous membranes moist. Cardiovascular: Heart regular rate and rhythm Chest: Breath sounds bilaterally Abdomen: abdomen soft, non-tender, non-distended, no organomegaly Musculoskeletal: Pulses present and equal in all extremities, no peripheral edema Motor: no focal deficits noted Neurological: CN II-XII grossly intact, no focal motor or sensory deficits noted Skin: Intact with no visualized rashes Psych: Normal affect and mood ED course: 65-year-old female presents emergency for hypoxia. Patient tested positive for coronavirus 7 days ago. She received monoclonal antibodies 2 days ago. Vital signs upon arrival shows oxygen of 85% with nasal cannula and nonrebreather. Patient switched over to positive pressure ventilation via aervo. Patient's blood pressure is 95/42. Patient is on prophylaxis for DVT. She has been taking eliquis for months. EKG interpretation: Ventricular rate 91, normal sinus rhythm, bundle branch block. 154, QRS 134, QTC 492. No MS prolongation, no QTC prolongation, no ST or T-wave changes noted. EKG compared to 04/24/2017 showing no changes. Overall, this EKG is unremarkable Laboratory evaluation obtained. CBC, coag panel, d-dimer is normal. Metabolic panel shows sodium 131. Elevated renal markers consistent with acute kidney injury likely prerenal azotemia from poor adjuration. Troponin 0.031, rotavirus is positive. Chest x-ray shows diffuse patchy perihilar infiltrates. Patient given multiple boluses of normal saline with improvement of blood pressure. Patient monitored in the emergency department for approximately 5 hours with optimal stabilization. Case discussed with pulmonology was where the patient. 2 blood gas was obtained showing pO2 of 63 on 100% FiO2 non-acidotic, none alkalotic. Patient was evaluated at bedside by clipper automatic Dr. Joya was agreeable to have patient admitted to the ICU. ICU is full. Patient will board in the emergency department until bed becomes available. - Related Data Home Medications Medication Instructions Recorded Confirmed Metoprolol Tartrate [Lopressor] 25 mg PO BID 08/08/15 04/24/21 hydroCHLOROthiazide [Hydrodiuril] 25 mg PO DAILY 08/08/15 04/24/21 DULoxetine HCL [Cymbalta] 60 mg PO DAILY 01/27/17 04/24/21 Levothyroxine Sodium [Synthroid] 137 mcg PO DAILY 01/27/17 04/24/21 Albuterol Sulfate [Albuterol 2 puff PO RT-Q6H PRN 04/24/21 04/24/21 Sulfate Hfa] Apixaban [Eliquis] 5 mg PO BID 04/24/21 04/24/21 Atorvastatin [Lipitor] 40 mg PO DAILY 04/24/21 04/24/21 Budesonide-Formot 160-4.5 Mcg 2 puff INHALATION RT-BID PRN 04/24/21 04/24/21 [Symbicort 160-4.5 Mcg Inhaler] Canagliflozin [Invokana] 300 mg PO DAILY 04/24/21 04/24/21 Cholecalciferol [Vitamin D3 (25 25 mcg PO DAILY 04/24/21 04/24/21 Mcg = 1000 Iu)] Cyclobenzaprine HCl 10 mg PO TID 04/24/21 04/24/21 Folic Acid 1 mg PO DAILY 04/24/21 04/24/21 HYDROcodone/APAP 10-325MG [Wayland 1 tab PO Q6HR PRN 04/24/21 04/24/21 10-325] Insulin Aspart (Niacinamide) See Protocol SQ AC-TID 04/24/21 04/24/21 [Fiasp 100 Unit/ml Flextouch Pen] Insulin Glargine,Hum.rec.anlog 30 unit SQ BID 04/24/21 04/24/21 [Lantus Solostar Pen] Levothyroxine Sodium 68.5 mcg PO CHAMBERS 04/24/21 04/24/21 amLODIPine BESYLATE/BENAZEPRIL 1 cap PO DAILY 04/24/21 04/24/21 [amLODIPine BESYLATE/BENAZEPRIL 10-20 mg] metFORMIN HCL [Glucophage] 1,000 mg PO BID 04/24/21 04/24/21 Allergies Allergy/AdvReac Type Severity Reaction Status Date / Time cefazolin Allergy Severe Rash/Hives Verified 04/24/21 13:25 Review of Systems ROS Statement: Those systems with pertinent positive or pertinent negative responses have been documented in the HPI. ROS Other: All systems not noted in ROS Statement are negative. Past Medical History Past Medical History: Diabetes Mellitus, Deep Vein Thrombosis (DVT), Hyperlipidemia, Hypertension, Osteoarthritis (OA), Thyroid Disorder Additional Past Medical History / Comment(s): DVT L Leg History of Any Multi-Drug Resistant Organisms: MRSA Date of last positivie culture/infection: 01/27/17 MDRO Source:: blood Past Surgical History: Hysterectomy, Orthopedic Surgery Additional Past Surgical History / Comment(s): Rectocele;hand,ankle and knee surg.; Past Anesthesia/Blood Transfusion Reactions: No Reported Reaction Past Psychological History: No Psychological Hx Reported Past Alcohol Use History: Rare Past Drug Use History: None Reported - Past Family History Brother(s) Family Medical History: Deep Vein Thrombosis (DVT) Mother Family Medical History: Coronary Artery Disease (CAD) Father Family Medical History: Diabetes Mellitus General Exam Limitations: no limitations Course Vital Signs 04/24/21 04/24/21 04/24/21 12:12 12:28 12:33 Temperature 98.1 F Pulse Rate 93 90 88 Respiratory 28 H 26 H 21 Rate Blood Pressure 95/42 84/50 70/52 O2 Sat by Pulse 85 L 95 94 L Oximetry 04/24/21 04/24/21 04/24/21 13:00 13:13 13:30 Temperature Pulse Rate 93 88 88 Respiratory 26 H 24 18 Rate Blood Pressure 86/49 75/51 82/41 O2 Sat by Pulse 88 L 93 L 92 L Oximetry 04/24/21 04/24/21 04/24/21 13:31 14:00 14:19 Temperature Pulse Rate 105 H 89 Respiratory 31 H 18 Rate Blood Pressure 84/51 108/68 114/58 O2 Sat by Pulse 92 L 94 L Oximetry 04/24/21 04/24/21 04/24/21 14:30 15:00 15:15 Temperature Pulse Rate 95 89 88 Respiratory 14 39 H 22 Rate Blood Pressure 90/55 100/56 93/47 O2 Sat by Pulse 90 L 92 L 92 L Oximetry 04/24/21 04/24/21 04/24/21 15:30 16:00 16:15 Temperature Pulse Rate 93 91 96 Respiratory 20 22 22 Rate Blood Pressure 88/46 110/52 111/55 O2 Sat by Pulse 92 L 90 L 90 L Oximetry 04/24/21 04/24/21 04/24/21 16:30 17:00 17:02 Temperature Pulse Rate 92 88 90 Respiratory 21 23 24 Rate Blood Pressure 101/45 85/35 104/51 O2 Sat by Pulse 89 L 92 L 93 L Oximetry 04/24/21 04/24/21 04/24/21 17:30 18:00 18:06 Temperature 98.2 F Pulse Rate 93 96 93 Respiratory 19 19 18 Rate Blood Pressure 91/45 96/60 98/57 O2 Sat by Pulse 89 L 89 L 93 L Oximetry 04/24/21 04/24/21 04/24/21 18:30 19:00 19:27 Temperature Pulse Rate 89 94 95 Respiratory 16 30 H 18 Rate Blood Pressure 105/53 107/53 94/50 O2 Sat by Pulse 93 L 95 90 L Oximetry 04/24/21 04/24/21 04/24/21 19:30 19:52 20:00 Temperature Pulse Rate 101 H 96 96 Respiratory 25 H 22 17 Rate Blood Pressure 94/50 124/113 124/113 O2 Sat by Pulse 84 L 86 L 90 L Oximetry 04/24/21 04/24/21 04/24/21 20:30 20:32 21:00 Temperature 98.4 F Pulse Rate 94 110 H Respiratory 29 H 14 38 H Rate Blood Pressure 98/55 103/56 O2 Sat by Pulse 90 L 90 L 85 L Oximetry 04/24/21 04/24/21 04/24/21 21:01 21:30 22:00 Temperature Pulse Rate 100 92 99 Respiratory 22 16 26 H Rate Blood Pressure 108/58 96/58 89/48 O2 Sat by Pulse 89 L 88 L 89 L Oximetry 04/24/21 04/24/21 04/24/21 22:30 23:00 23:14 Temperature Pulse Rate 97 96 92 Respiratory 27 H 26 H 18 Rate Blood Pressure 94/53 78/48 83/50 O2 Sat by Pulse 87 L 87 L 89 L Oximetry 04/24/21 04/24/21 04/24/21 23:26 23:30 23:51 Temperature 98.6 F Pulse Rate 104 H 98 101 H Respiratory 24 24 22 Rate Blood Pressure 91/53 91/53 93/52 O2 Sat by Pulse 89 L 88 L 89 L Oximetry 04/25/21 04/25/21 00:00 00:20 Temperature 98.4 F Pulse Rate 102 H 98 Respiratory 18 22 Rate Blood Pressure 113/61 115/65 O2 Sat by Pulse 88 L 86 L Oximetry Medical Decision Making - Lab Data Result diagrams: 04/29/21 08:14 04/29/21 08:14 Lab Results 04/24/21 04/24/21 04/24/21 Range/Units 12:28 12:28 12:28 WBC 5.7 (3.8-10.6) k/uL RBC 3.73 L (3.80-5.40) m/uL Hgb 12.8 (11.4-16.0) gm/dL Hct 38.2 (34.0-46.0) % MCV 102.6 H D (80.0-100.0) fL MCH 34.3 (25.0-35.0) pg MCHC 33.4 (31.0-37.0) g/dL RDW 16.2 H (11.5-15.5) % Plt Count 191 D (150-450) k/uL MPV 9.9 Neutrophils % 62 % Lymphocytes % 27 % Monocytes % 6 % Eosinophils % 1 % Basophils % 1 % Neutrophils # 3.5 (1.3-7.7) k/uL Lymphocytes # 1.6 (1.0-4.8) k/uL Monocytes # 0.4 (0-1.0) k/uL Eosinophils # 0.1 (0-0.7) k/uL Basophils # 0.0 (0-0.2) k/uL Anisocytosis Slight Macrocytosis Slight PT 10.5 (9.0-12.0) sec INR 1.0 (<1.2) APTT 29.5 (22.0-30.0) sec D-Dimer 0.39 (<0.60) mg/L FEU Sample Site ABG pH (7.35-7.45) ABG pCO2 (35-45) mmHg ABG pO2 (83-108) mmHg ABG HCO3 (21-25) mmol/L ABG Total CO2 (19-24) mmol/L ABG O2 Saturation (94-97) % ABG Base Excess mmol/L Moses Test FiO2 % Sodium 131 L (137-145) mmol/L Potassium 4.4 (3.5-5.1) mmol/L Chloride 97 L (98-107) mmol/L Carbon Dioxide 22 (22-30) mmol/L Anion Gap 12 mmol/L BUN 67 H (7-17) mg/dL Creatinine 1.78 H (0.52-1.04) mg/dL Est GFR (CKD-EPI)AfAm 35 (>60 ml/min/1.73 sqM) Est GFR (CKD-EPI)NonAf 30 (>60 ml/min/1.73 sqM) Glucose 108 H (74-99) mg/dL Plasma Lactic Acid Amrik (0.7-2.0) mmol/L Calcium 7.5 L (8.4-10.2) mg/dL Magnesium 2.1 (1.6-2.3) mg/dL Total Bilirubin 0.7 (0.2-1.3) mg/dL AST 47 H (14-36) U/L ALT 17 (4-34) U/L Alkaline Phosphatase 48 (38-126) U/L Troponin I (0.000-0.034) ng/mL C-Reactive Protein 22.8 H (<1.0) mg/dL NT-Pro-B Natriuret Pep pg/mL Total Protein 5.7 L (6.3-8.2) g/dL Albumin 3.0 L (3.5-5.0) g/dL Coronavirus (PCR) (Not Detectd) 04/24/21 04/24/21 04/24/21 Range/Units 12:28 12: 12: WBC (3.8-10.6) k/uL RBC (3.80-5.40) m/uL Hgb (11.4-16.0) gm/dL Hct (34.0-46.0) % MCV (80.0-100.0) fL MCH (25.0-35.0) pg MCHC (31.0-37.0) g/dL RDW (11.5-15.5) % Plt Count (150-450) k/uL MPV Neutrophils % % Lymphocytes % % Monocytes % % Eosinophils % % Basophils % % Neutrophils # (1.3-7.7) k/uL Lymphocytes # (1.0-4.8) k/uL Monocytes # (0-1.0) k/uL Eosinophils # (0-0.7) k/uL Basophils # (0-0.2) k/uL Anisocytosis Macrocytosis PT (9.0-12.0) sec INR (<1.2) APTT (22.0-30.0) sec D-Dimer (<0.60) mg/L FEU Sample Site ABG pH (7.35-7.45) ABG pCO2 (35-45) mmHg ABG pO2 (83-108) mmHg ABG HCO3 (21-25) mmol/L ABG Total CO2 (19-24) mmol/L ABG O2 Saturation (94-97) % ABG Base Excess mmol/L Moses Test FiO2 % Sodium (137-145) mmol/L Potassium (3.5-5.1) mmol/L Chloride (98-107) mmol/L Carbon Dioxide (22-30) mmol/L Anion Gap mmol/L BUN (7-17) mg/dL Creatinine (0.52-1.04) mg/dL Est GFR (CKD-EPI)AfAm (>60 ml/min/1.73 sqM) Est GFR (CKD-EPI)NonAf (>60 ml/min/1.73 sqM) Glucose (74-99) mg/dL Plasma Lactic Acid Amrik 1.1 (0.7-2.0) mmol/L Calcium (8.4-10.2) mg/dL Magnesium (1.6-2.3) mg/dL Total Bilirubin (0.2-1.3) mg/dL AST (14-36) U/L ALT (4-34) U/L Alkaline Phosphatase (38-126) U/L Troponin I 0.031 (0.000-0.034) ng/mL C-Reactive Protein (<1.0) mg/dL NT-Pro-B Natriuret Pep 251 pg/mL Total Protein (6.3-8.2) g/dL Albumin (3.5-5.0) g/dL Coronavirus (PCR) (Not Detectd) 04/24/21 04/24/21 Range/Units 12:28 17:15 WBC (3.8-10.6) k/uL RBC (3.80-5.40) m/uL Hgb (11.4-16.0) gm/dL Hct (34.0-46.0) % MCV (80.0-100.0) fL MCH (25.0-35.0) pg MCHC (31.0-37.0) g/dL RDW (11.5-15.5) % Plt Count (150-450) k/uL MPV Neutrophils % % Lymphocytes % % Monocytes % % Eosinophils % % Basophils % % Neutrophils # (1.3-7.7) k/uL Lymphocytes # (1.0-4.8) k/uL Monocytes # (0-1.0) k/uL Eosinophils # (0-0.7) k/uL Basophils # (0-0.2) k/uL Anisocytosis Macrocytosis PT (9.0-12.0) sec INR (<1.2) APTT (22.0-30.0) sec D-Dimer (<0.60) mg/L FEU Sample Site LBRACH ABG pH 7.35 (7.35-7.45) ABG pCO2 36 (35-45) mmHg ABG pO2 63 L (83-108) mmHg ABG HCO3 20 L (21-25) mmol/L ABG Total CO2 21 (19-24) mmol/L ABG O2 Saturation 88.7 L (94-97) % ABG Base Excess -5.8 mmol/L Moses Test Yes FiO2 100 % Sodium (137-145) mmol/L Potassium (3.5-5.1) mmol/L Chloride (98-107) mmol/L Carbon Dioxide (22-30) mmol/L Anion Gap mmol/L BUN (7-17) mg/dL Creatinine (0.52-1.04) mg/dL Est GFR (CKD-EPI)AfAm (>60 ml/min/1.73 sqM) Est GFR (CKD-EPI)NonAf (>60 ml/min/1.73 sqM) Glucose (74-99) mg/dL Plasma Lactic Acid Amrik (0.7-2.0) mmol/L Calcium (8.4-10.2) mg/dL Magnesium (1.6-2.3) mg/dL Total Bilirubin (0.2-1.3) mg/dL AST (14-36) U/L ALT (4-34) U/L Alkaline Phosphatase (38-126) U/L Troponin I (0.000-0.034) ng/mL C-Reactive Protein (<1.0) mg/dL NT-Pro-B Natriuret Pep pg/mL Total Protein (6.3-8.2) g/dL Albumin (3.5-5.0) g/dL Coronavirus (PCR) Detected A (Not Detectd) Critical Care Time Critical Care Time: Yes Total Critical Care Time: 33 Disposition Clinical Impression: COVID-19, Dehydration, Respiratory failure Disposition: ADMITTED IP TO THIS [facility] Condition: Critical
--- NOTE | 2021-04-24 13:09 | XR ---
EXAMINATION TYPE: XR chest 1V portable DATE OF EXAM: 04/24/2021 COMPARISON: 04/24/2017 INDICATION: Hypoxia difficulty in breathing TECHNIQUE: Single frontal view of the chest is obtained. FINDINGS: The heart size is normal. The pulmonary vasculature is indistinct. Patchy perihilar infiltrates are present greater on the left. Some air bronchograms are present on th e left. There is elevation of the right diaphragm. IMPRESSION: 1. Patchy perihilar infiltrates greater on the left. Correlate for atypical pneumonia. Follow-up is r ecommended.
[2021-04-24 13:14] LABS: Partial Thromboplastin Time 29.5 sec (22.0-30.0); Prothrombin Time 10.5 sec (9.0-12.0)
[2021-04-24 13:17] LABS: Calcium 7.5 mg/dL (8.4-10.2); Total Bilirubin 0.7 mg/dL (0.2-1.3)
[2021-04-24 13:18] LABS: Magnesium 2.1 mg/dL (1.6-2.3); Potassium 4.4 mmol/L (3.5-5.1); Total Protein 5.7 g/dL (6.3-8.2)
[2021-04-24 13:28] LABS: Anisocytosis Slight; Basophils % (A) 1 %; Eosinophils # (A) 0.1 k/uL (0-0.7); Eosinophils % (A) 1 %; HCT 38.2 % (34.0-46.0); HGB 12.8 gm/dL (11.4-16.0); Lymphocytes # (A) 1.6 k/uL (1.0-4.8); Lymphocytes % (A) 27 %; MCH 34.3 pg (25.0-35.0); MCHC 33.4 g/dL (31.0-37.0); Macrocytosis Slight; Monocytes # (A) 0.4 k/uL (0-1.0); Monocytes % (A) 6 %; Neutrophils # (A) 3.5 k/uL (1.3-7.7); Neutrophils % (A) 62 %; RBC 3.73 m/uL (3.80-5.40); RDW 16.2 % (11.5-15.5); WBC 5.7 k/uL (3.8-10.6)
[2021-04-24 13:30] LABS: MCV 102.6 fL (80.0-100.0); Mean Platelet Volume 9.9
[2021-04-24] MEDS ORDERED: SODIUM CHLORIDE 0.9% 1,000 ML IV STA (13:30)
[2021-04-24 13:31] LABS: Platelet Count 191 k/uL (150-450)
[2021-04-24 13:44] LABS: C Reactive Protein 22.8 mg/dL (<1.0)
[2021-04-24 17:15] LABS: ABG Base Excess -5.8 mmol/L; ABG HCO3 20 mmol/L (21-25); ABG Oxygen Saturation 88.7 % (94-97); ABG PCO2 36 mmHg (35-45); ABG PH 7.35 (7.35-7.45); ABG PO2 63 mmHg (83-108); ABG TCO2 21 mmol/L (19-24); Allen Test Performed? Yes
[2021-04-24] MEDS ORDERED: NALOXONE 0.4 MG/ML 1 ML VIAL IV PRN (17:27)
[2021-04-24] MEDS: SODIUM CHLORIDE 0.9% 1,000 ML IV SCH ×2 (17:58→23:29)
--- NOTE | 2021-04-24 18:05 | P.CNPUL ---
History of Present Illness Consult date: 04/24/21 Requesting physician: Marge Colby Reason for consult: hypoxemia, pneumonia Chief complaint: Shortness of breath History of present illness: His is a 65-year-old female with history of multiple medical problems, patient is known to have history of type 2 diabetes, deep vein thrombosis, hypertension, history of hypothyroidism, dyslipidemia, patient is not vaccinated. Patient had symptoms of COVID-19 infection supposedly cough, fever, shortness of breath, aches and pains over 7 days ago. She tested positive for coronavirus 7 days ago. And she received the monoclonal antibodies 2 days ago. Patient has not been doing well, she has been complaining of shortness of breath at home, EMS arrived to see the patient cyanotic, patient was placed on nonrebreather mask, and her O2 saturation came up to the 80s. Patient was also noted to be hypotensive with systolic pressure in the 60s and 80s. She was given a liter of fluid by EMS, and she was brought into the ER. Patient is on anticoagulation therapy for history of chronic deep vein thrombosis and she is compliant with Eliquis at 5 mg twice a day. Seen in the ER this afternoon, patient was noted to be quite hypoxic, and she had 85% O2 saturation on a nonrebreather mask. Patient was placed on airvo, 90% FiO2 and 60 L flow, and her O2 saturation came up to 92%. Patient also had a nonrebreather mask in addition to airvo. EG show ed a pO2 of 63 pCO2 of 56 and pH of 7.35. She had a relatively normal CBC. Platelets were normal and PMI is was 62% and lymphocytes were 27%. Metabolic profile showed slightly low sodium of 131, her BUN is 67 creatinine 1.78. Patient normally has a normal creatinine and on 03/05/21, her creatinine was 0.8. Yearly the patient has acute kidney injury with hypotension and abnormal chest x-ray diffuse bilateral infiltrates consistent with COVID-19 pneumonia. Infiltrates seem to be more in the left perihilar area of the most and I evaluated the patient in the ER, and I recommended admission to the ICU. Patient is marginal at best, blood pressure is also marginal with systolic in the low 90s, and mean of 57. Recommended definite admission to the ICU once a bed becomes available. In the meantime the patient is receiving fluids, and she'll be placed on the COVID-19 cocktail. Patient is obviously outside the window for the severe, may consider placing the patient on Baricitinib assuming she has no source of infection and assuming she has a normal pro-calcitonin level. The patient herself is not a great historian. Review of Systems Patient is not a great historian, she seems to be a bit confused and forgetful, couldn't give me much information about her history of the present illness, she did not even know that she received monoclonal antibody infusion patient is mostly complaining of cough and shortness of breath at present. Past Medical History Past Medical History: Diabetes Mellitus, Deep Vein Thrombosis (DVT), Hyperlipidemia, Hypertension, Osteoarthritis (OA), Thyroid Disorder Additional Past Medical History / Comment(s): DVT L Leg History of Any Multi-Drug Resistant Organisms: MRSA Date of last positivie culture/infection: 01/27/17 MDRO Source:: blood Past Surgical History: Hysterectomy, Orthopedic Surgery Additional Past Surgical History / Comment(s): Rectocele;hand,ankle and knee surg.; Past Anesthesia/Blood Transfusion Reactions: No Reported Reaction Past Psychological History: No Psychological Hx Reported Past Alcohol Use History: Rare Past Drug Use History: None Reported - Past Family History Brother(s) Family Medical History: Deep Vein Thrombosis (DVT) Mother Family Medical History: Coronary Artery Disease (CAD) Father Family Medical History: Diabetes Mellitus Medications and Allergies Home Medications Medication Instructions Recorded Confirmed Type Metoprolol Tartrate [Lopressor] 25 mg PO BID 08/08/15 04/24/21 History hydroCHLOROthiazide [Hydrodiuril] 25 mg PO DAILY 08/08/15 04/24/21 History DULoxetine HCL [Cymbalta] 60 mg PO DAILY 01/27/17 04/24/21 History Levothyroxine Sodium [Synthroid] 137 mcg PO DAILY 01/27/17 04/24/21 History Albuterol Sulfate [Albuterol 2 puff PO RT-Q6H PRN 04/24/21 04/24/21 History Sulfate Hfa] Apixaban [Eliquis] 5 mg PO BID 04/24/21 04/24/21 History Atorvastatin [Lipitor] 40 mg PO DAILY 04/24/21 04/24/21 History Budesonide-Formot 160-4.5 Mcg 2 puff INHALATION RT-BID PRN 04/24/21 04/24/21 History [Symbicort 160-4.5 Mcg Inhaler] Canagliflozin [Invokana] 300 mg PO DAILY 04/24/21 04/24/21 History Cholecalciferol [Vitamin D3 (25 25 mcg PO DAILY 04/24/21 04/24/21 History Mcg = 1000 Iu)] Cyclobenzaprine HCl 10 mg PO TID 04/24/21 04/24/21 History Folic Acid 1 mg PO DAILY 04/24/21 04/24/21 History HYDROcodone/APAP 10-325MG [[place] 1 tab PO Q6HR PRN 04/24/21 04/24/21 History 10-325] Insulin Aspart (Niacinamide) See Protocol SQ AC-TID 04/24/21 04/24/21 History [Fiasp 100 Unit/ml Flextouch Pen] Insulin Glargine,Hum.rec.anlog 30 unit SQ BID 04/24/21 04/24/21 History [Lantus Solostar Pen] Levothyroxine Sodium 68.5 mcg PO CHAMBERS 04/24/21 04/24/21 History amLODIPine BESYLATE/BENAZEPRIL 1 cap PO DAILY 04/24/21 04/24/21 History [amLODIPine BESYLATE/BENAZEPRIL 10-20 mg] metFORMIN HCL [Glucophage] 1,000 mg PO BID 04/24/21 04/24/21 History Allergies Allergy/AdvReac Type Severity Reaction Status Date / Time cefazolin Allergy Severe Rash/Hives Verified 04/24/21 13:25 Physical Exam Vitals: Vital Signs Temp Pulse Resp BP Pulse Ox 04/24/21 17:02 90 24 104/51 93 L 04/24/21 16:15 96 22 111/55 90 L 04/24/21 15:15 88 22 93/47 92 L 04/24/21 14:19 89 18 114/58 94 L 04/24/21 13:31 84/51 92 L 04/24/21 13:13 88 24 75/51 93 L 04/24/21 12:28 90 26 H 84/50 95 04/24/21 12:12 98.1 F 93 28 H 95/42 85 L Intake and Output 04/24/21 04/24/21 04/24/21 06:59 14:59 22:59 Other: Weight 99.79 kg Physical Exam revealed a 65-year-old female in moderate respiratory distress, on airvo at 90% FiO2 and 60 L flow she is also on a nonrebreather mask, O2 saturations 92%. Head: Atraumatic normocephalic. HEENT:[Neck is supple.] [No neck masses.] [No thyromegaly.] [No JVD.] Chest: Metrical chest expansion crackles bilaterally more so on the left side.] Cardiac Exam: [Normal S1 and S2, no S3 gallop, no murmur.] Abdomen: [Soft, nontender, no megaly, no rebound, no guarding, normal bowel sounds.] Extremities: Chronic venous stasis changes and chronic bruising in lower extremities noted/chronic according to the patient. Patient stated that she bruises easily. Neurological Exam: Alert and oriented 2, poor memory, cannot give much information about her history of the present illness. Psychiatric: Depressed mood, appropriate affect, confused mental status. Results - Laboratory Findings CBC and BMP: 04/24/21 12:28 04/24/21 12:28 ABG ABG pH 7.35 (7.35-7.45) 04/24/21 17:15 ABG pCO2 36 mmHg (35-45) 04/24/21 17:15 ABG pO2 63 mmHg (83-108) L 04/24/21 17:15 ABG O2 Saturation 88.7 % (94-97) L 04/24/21 17:15 PT/INR, D-dimer PT 10.5 sec (9.0-12.0) 04/24/21 12: INR 1.0 (<1.2) 04/24/21 12:28 D-Dimer 0.39 mg/L FEU (<0.60) 04/24/21 12:28 Abnormal lab findings: Abnormal Labs 04/24/21 04/24/21 04/24/21 12:28 12:28 12:28 RBC 3.73 L MCV 102.6 H D RDW 16.2 H ABG pO2 ABG HCO3 ABG O2 Saturation Sodium 131 L Chloride 97 L BUN 67 H Creatinine 1.78 H Glucose 108 H Calcium 7.5 L AST 47 H C-Reactive Protein 22.8 H Total Protein 5.7 L Albumin 3.0 L Coronavirus (PCR) Detected A 04/24/21 17:15 RBC MCV RDW ABG pO2 63 L ABG HCO3 20 L ABG O2 Saturation 88.7 L Sodium Chloride BUN Creatinine Glucose Calcium AST C-Reactive Protein Total Protein Albumin Coronavirus (PCR) - Diagnostic Findings Chest x-ray: image reviewed (As noted in HPI) Assessment and Plan Assessment: Impression: Acute hypoxic and a story failure secondary to COVID-19 pneumonia History of chronic deep vein thrombosis and hypercoagulable state, maintained on Eliquis at 5 mg twice a day History of COPD maintained on bronchodilators in the form of albuterol and Symbicort. Type 2 diabetes. Acute kidney injury, secondary to acute tubular necrosis hypotension and sepsis is strongly suspected History of hypothyroidism Benign essential hypertension Degenerative joint disease and history of MRSA infection Recommendation: Admit patient to the ICU, patient is not a candidate for Remdesivir may be a candidate for Baricitinib. Continue high flow oxygen and titrate accordingly, patient may be transitioned to BiPAP, and she may even require intubation and mechanical ventilation if her condition gets any worse. Start patient on the COVID-19 cocktail. Continue Eliquis 5 mg twice a day Hold blood pressure medications since her blood pressure is marginal No need for CT angiogram or venous Doppler on this patient since she is maintained on Eliquis. Pro-calcitonin level is pending may consider starting the patient on Baricitinib Overall prognosis seems to be extremely guarded, and the patient is marginal at best. Will follow-up on the patient after admission to ICU. Discussed her condition and status with the ER physician in the ER. Time with Patient: Greater than 30
[2021-04-24] MEDS ORDERED: WATER IVPB SCH ×2 (18:15)
[2021-04-24] MEDS ORDERED: DEXAMETHASONE SOD PHOS IVPB SCH ×2 (18:15)
[2021-04-24] MEDS ORDERED: DEXTROSE 5% IVPB SCH ×2 (18:15)
[2021-04-24 18:35] LABS: Calcium 6.3 mg/dL (8.4-10.2); Potassium 4.1 mmol/L (3.5-5.1)
--- NOTE | 2021-04-24 18:36 | HP ---
HISTORY AND PHYSICAL DATE OF SERVICE: 04/24/2021. CHIEF COMPLAINT: Shortness of breath and COVID-19. HISTORY OF PRESENT ILLNESS: This 65-year-old woman with a past medical history of multiple medical problems, including diabetes mellitus, DVT, hypertension, hyperlipidemia, being followed by Dr. Amol Stovall in the outpatient setting, was complaining of shortness of breath and cough for the last several days. Patient was diagnosed with COVID-19 about 7 days ago. Patient received monoclonal antibodies about 2 days ago, but the patient presented to the emergency room with increasing shortness of breath. Chest x-ray showed bilateral interstitial infiltrates highly suggestive of COVID-19. Patient was admitted for further evaluation and treatment. Dr. Joya is following the patient closely. ABG showed pH of 7.35 and PO2 of 63, 100% FiO2. Creatinine is 1.78. Patient had multiple lab abnormalities also. The patient is unvaccinated. There is no history of any fever, rigor or chills at this time. PAST MEDICAL HISTORY: History of diabetes mellitus, DVT, history of hypertension, hyperlipidemia, history of DJD. HOME MEDICATIONS: Levothyroxine, insulin, cholecalciferol, hydrochlorothiazide, metoprolol, Cymbalta, Glucophage, Synthroid. Doses and other medications are reviewed. ALLERGIES: CEFAZOLIN. FAMILY HISTORY: History of DVT in the family. SOCIAL HISTORY: Remote history of brief smoking. Occasional alcohol intake. REVIEW OF SYSTEMS: ENT: No diminished hearing. No diminished vision. CARDIOVASCULAR SYSTEM: No angina, palpitations. RESPIRATORY SYSTEM: As mentioned earlier. GI: No nausea, vomiting, diarrhea. : No dysuria. NERVOUS SYSTEM: No numbness, weakness. ALLERGY/IMMUNOLOGY: No asthma or hay fever. MUSCULOSKELETAL: As mentioned earlier. HEMATOLOGY/ONCOLOGY: As mentioned earlier. ENDOCRINE: As mentioned earlier. CONSTITUTIONAL: As mentioned earlier. DERMATOLOGY: Negative. RHEUMATOLOGY: Negative. PSYCHIATRY: As mentioned earlier. PHYSICAL EXAMINATION: Patient alert and oriented x3. Pulse 90, blood pressure 111/55, respiration 22, temperature normal, pulse ox 90% on 60% high-flow oxygen, AIRVO. HEENT: Conjunctivae normal. Oral mucosa moist. NECK: No jugular venous distention. CARDIOVASCULAR: S1, S2 muffled. RESPIRATION: Breath sounds diminished at the bases. A few scattered rhonchi. ABDOMEN: Soft, nontender. LEGS: Bilateral leg edema and ecchymosis also present. Discoloration also present. ABDOMEN: Soft, nontender. NERVOUS SYSTEM: Higher functions as mentioned earlier. Moves all 4 limbs. No deficit. LYMPHATICS: No lymph node palpable in neck, axillae or groin. SKIN: No ulcer, rash, bleeding. LABS: WBC 5.6, hemoglobin 12.8. Other labs are noted. Chest x-ray reviewed personally. ASSESSMENT: 1. Acute COVID-19 infection with acute COVID-19 bilateral interstitial pneumonia with acute hypoxic respiratory failure. 2. Hyponatremia. 3. Bilateral leg lesions. 4. Increased creatinine with acute renal failure with acute tubular necrosis. 5. Elevated AST. 6. Elevated CRP. 7. Elevated inflammatory markers of COVID-19. 8. Hypoalbuminemia with mild protein-calorie malnutrition. 9. Increased mean corpuscular volume. 10.Diabetes mellitus, type 2. 11.History of deep vein thrombosis. 12.Hypertension. 13.Hyperlipidemia. 14.History of degenerative joint disease. 15.Hypothyroidism. 16.History of MRSA. 17.History of hysterectomy. 18.FULL CODE. RECOMMENDATIONS AND DISCUSSION: In this 65-year-old woman who presented with multiple complex medical issues, we will monitor the patient closely, continue the current medications, continue symptomatic treatment. Will resume the usual medications. Patient might be a candidate for remdesivir. We will consult Infectious Disease as well as Pulmonary. Resume the home medications. Overall prognosis guarded because of multiple complex medical issues. See orders for further details. A copy of this dictation is being forwarded to Dr. Stovall, who is the primary physician. Will also continue initiate usual medications for COVID-19 and Lovenox as well. MMODL / IJN: [id number] /
[2021-04-24] MEDS ORDERED: CALCIUM GLUCONATE 1 GM in SODIUM CHLORIDE 0.9% 100 ML IVPB ONE (18:48)
[2021-04-24] MEDS: HYDROcodone/APAP 10-325MG 1 EACH TAB PO PRN (19:47)
[2021-04-24] MEDS: DEXAMETHASONE SOD PHOSPHATE 10 MG/ML 1 ML VIAL IVP SCH (19:47)
[2021-04-24] MEDS ORDERED: ALBUTEROL HFA INHALER INHALATION SCH (20:00)
[2021-04-24] MEDS: INSULIN ASPART (NovoLOG) 100 UNIT/ML VIAL SQ SCH (20:54)
[2021-04-24] MEDS: INSULIN DETEMIR (LEVEMIR) 100 UNIT/ML SYR SQ SCH (20:58)
[2021-04-24] MEDS: APIXABAN 5 MG TAB PO SCH (20:58)
[2021-04-24] MEDS: CYCLOBENZAPRINE 10 MG TAB PO SCH (21:00)
[2021-04-24 21:05] LABS: Glucose,Whole Blood 88 mg/dL (75-99)
[2021-04-24] MEDS ORDERED: SODIUM CHLORIDE 0.9% 500 ML 500 ML IV ONE (23:39)
[2021-04-25 00:21] LABS: Glucose,Whole Blood 122 mg/dL (75-99)
[2021-04-25] MEDS: NOREPINEPHRINE 4 MG in SODIUM CHLORIDE 0.9% 250 ML IV SCH ×3 (03:50→21:59)
[2021-04-25 04:33] LABS: Basophils % (A) 0 %; Eosinophils % (A) 0 %; HCT 37.9 % (34.0-46.0); HGB 12.2 gm/dL (11.4-16.0); Lymphocytes # (A) 0.9 k/uL (1.0-4.8); Lymphocytes % (A) 17 %; MCH 33.5 pg (25.0-35.0); MCHC 32.3 g/dL (31.0-37.0); MCV 103.9 fL (80.0-100.0); Macrocytosis Slight; Mean Platelet Volume 10.2; Monocytes # (A) 0.3 k/uL (0-1.0); Monocytes % (A) 5 %; Neutrophils # (A) 3.7 k/uL (1.3-7.7); Neutrophils % (A) 76 %; Platelet Count 236 k/uL (150-450); RBC 3.65 m/uL (3.80-5.40); RDW 15.7 % (11.5-15.5); WBC 4.9 k/uL (3.8-10.6)
[2021-04-25 04:50] LABS: Albumin 2.7 g/dL (3.5-5.0); Calcium 7.6 mg/dL (8.4-10.2); Potassium 4.9 mmol/L (3.5-5.1); Total Bilirubin 0.3 mg/dL (0.2-1.3); Total Protein 5.1 g/dL (6.3-8.2)
[2021-04-25 06:19] LABS: Glucose,Whole Blood 190 mg/dL (75-99)
[2021-04-25] MEDS: LEVOTHYROXINE 137 MCG TAB PO SCH (06:26)
[2021-04-25] MEDS ORDERED: SODIUM CHLORIDE 0.9% 1,000 ML IV ONE (07:00)
--- NOTE | 2021-04-25 07:01 | P.PN ---
Subjective Progress Note Date: 04/25/21 His is a 65-year-old female with history of multiple medical problems, patient is known to have history of type 2 diabetes, deep vein thrombosis, hypertension, history of hypothyroidism, dyslipidemia, patient is not vaccinated. Patient had symptoms of COVID-19 infection supposedly cough, fever, shortness of breath, aches and pains over 7 days ago. She tested positive for coronavirus 7 days ago. And she received the monoclonal antibodies 2 days ago. Patient has not been doing well, she has been complaining of shortness of breath at home, EMS arrived to see the patient cyanotic, patient was placed on nonrebreather mask, and her O2 saturation came up to the 80s. Patient was also noted to be hyp otensive with systolic pressure in the 60s and 80s. She was given a liter of fluid by EMS, and she was brought into the ER. Patient is on anticoagulation therapy for history of chronic deep vein thrombosis and she is compliant with Eliquis at 5 mg twice a day. Seen in the ER this afternoon, patient was noted to be quite hypoxic, and she had 85% O2 saturation on a nonrebreather mask. Patient was placed on airvo, 90% FiO2 and 60 L flow, and her O2 saturation came up to 92%. Patient also had a nonrebreather mask in addition to airvo. EG showed a pO2 of 63 pCO2 of 56 and pH of 7.35. She had a relatively normal CBC. Platelets were normal and PMI is was 62% and lymphocytes were 27%. Metabolic profile showed slightly low sodium of 131, her BUN is 67 creatinine 1.78. Patient normally has a normal creatinine and on 03/05/21, her creatinine was 0.8. Yearly the patient has acute kidney injury with hypotension and abnormal chest x-ray diffuse bilateral infiltrates consistent with COVID-19 pneumonia. Infiltrates seem to be more in the left perihilar area of the most and I evaluated the patient in the ER, and I recommended admission to the ICU. Patient is marginal at best, blood pressure is also marginal with systolic in the low 90s, and mean of 57. Recommended definite admission to the ICU once a bed becomes available. In the meantime the patient is receiving fluids, and she'll be placed on the COVID-19 cocktail. Patient is obviously outside the window for the severe, may consider placing the patient on Baricitinib assuming she has no source of infection and assuming she has a normal pro-calcitonin level. The patient herself is not a great historian. On today's evaluation, this 65-year-old female patient is being seen in follow- up on 04/25/2021. As mentioned earlier, she is a 65-year-old female, known having diabetes mellitus, hypertension, hypothyroidism, hyperlipidemia and previous history of DVT and currently she is in for acute hypoxic respiratory failure for community related pneumonia. The patient tested positive more than a week ago and she received monoclonal antibodies few days back and despite that she progress. She is currently on oxygen flow with Airvo 60 L with 100% FiO2 and addition to 100% nonrebreather facemask. The chest x-ray showing smaller lung volumes, elevation of the right hemidiaphragm which is probably a chronic finding and the patient has extensive bilateral pulmonary infiltrates and consolidation more so on the left involving the left upper lobe left lower lobe and right midlung area. I did also appreciate a cervical spine surgery that was done since 2017 and there are plates and nails and screws for cervical spine f ixation. For now, the patient is quite comfortable and current pulse ox 92%. Her blood gases done yesterday showed a pH of 7.35 with a pCO2 of 36 and pO2 of 63. Her inflammatory markers shows appropriate the pro-calcitonin LEVEL OF 0.86, THE PATIENT ALSO HAS A CRP LEVEL OF 22, LDH LEVEL IS STILL PENDING. SUGARS FROM TODAY IS AT 190, ELECTROLYTE SHOWING A COMPONENT OF NON-ANION GAP METABOLIC ACIDOSIS WITH A SERUM BICARB OF 17, BUN OF 39 AND A CREATININE OF 0.8. D-DIMER IS AT 0.4. THE WHITE CELL COUNT IS AT 4.7 WITH HEMOGLOBIN OF 12.2. THE PATIENT WAS STARTED ON DECADRON 6 MG IV EVERY 24 HOURS. THE PATIENT ON ELIQUIS 5 MG BY MOUTH TWICE A DAY. THE PATIENT has been hypotensive since she arrived to the ICU. Her mean arterial pressures around 72. IV fluids are in the form of normal saline at 75 mL an hour. The patient was also started on norepinephrine as 0.03 mcg/kg per minute. Cultures were sent and the results are still pending. Meanwhile, the patient is on no antibiotic coverage for now. The patient on Levemir insulin 30 units twice a day in addition to NovoLog per sliding scale coverage. Objective - Vital Signs Vital signs: Vital Signs Temp 98.0 F 04/25/21 04:00 Pulse 93 04/25/21 06:00 Resp 23 04/25/21 06:00 BP 102/57 04/25/21 06:00 Pulse Ox 91 L 04/25/21 06:00 Intake & Output 04/24/21 04/24/21 04/25/21 06:59 18:59 06:59 Intake Total 450 Output Total 775 Balance -325 Weight 99.79 kg 98.2 kg Intake: IV 450 Sodium Chloride 0.9% 1, 450 000 ml @ 75 mls/hr IV . [id number] [facility] Rx#:[id number] Output: Urine 775 Other: Voiding Method Indwelling Catheter - Exam Physical Exam revealed a 65-year-old female in moderate respiratory distress, on airvo at 90% FiO2 and 60 L flow she is also on a nonrebreather mask, O2 saturations 92%. Head: Atraumatic normocephalic. HEENT:[Neck is supple.] [No neck masses.] [No thyromegaly.] [No JVD.] Chest: Metrical chest expansion crackles bilaterally more so on the left side.] Cardiac Exam: [Normal S1 and S2, no S3 gallop, no murmur.] Abdomen: [Soft, nontender, no megaly, no rebound, no guarding, normal bowel sounds.] Extremities: Chronic venous stasis changes and chronic bruising in lower extremities noted/chronic according to the patient. Patient stated that she bruises easily. Neurological Exam: Alert and oriented 2, poor memory, cannot give much information about her history of the present illness. Psychiatric: Depressed mood, appropriate affect, confused mental status. - Labs CBC & Chem 7: 04/25/21 03:55 04/25/21 03:54 Labs: Abnormal Lab Results - Last 24 Hours (Table) 04/24/21 04/24/21 04/24/21 Range/Units 12:28 12: 12: RBC 3.73 L (3.80-5.40) m/uL MCV 102.6 H D (80.0-100.0) fL RDW 16.2 H (11.5-15.5) % Lymphocytes # (1.0-4.8) k/uL ABG pO2 (83-108) mmHg ABG HCO3 (21-25) mmol/L ABG O2 Saturation (94-97) % Sodium 131 L (137-145) mmol/L Chloride 97 L (98-107) mmol/L Carbon Dioxide (22-30) mmol/L BUN 67 H (7-17) mg/dL Creatinine 1.78 H (0.52-1.04) mg/dL Glucose 108 H (74-99) mg/dL POC Glucose (mg/dL) (75-99) mg/dL Calcium 7.5 L (8.4-10.2) mg/dL AST 47 H (14-36) U/L C-Reactive Protein 22.8 H (<1.0) mg/dL Total Protein 5.7 L (6.3-8.2) g/dL Albumin 3.0 L (3.5-5.0) g/dL Procalcitonin (0.02-0.09) ng/mL Coronavirus (PCR) Detected A (Not Detectd) 04/24/21 04/24/21 04/24/21 Range/Units 17:15 18:00 18:00 RBC (3.80-5.40) m/uL MCV (80.0-100.0) fL RDW (11.5-15.5) % Lymphocytes # (1.0-4.8) k/uL ABG pO2 63 L (83-108) mmHg ABG HCO3 20 L (21-25) mmol/L ABG O2 Saturation 88.7 L (94-97) % Sodium 134 L (137-145) mmol/L Chloride (98-107) mmol/L Carbon Dioxide 19 L (22-30) mmol/L BUN 55 H (7-17) mg/dL Creatinine 1.23 H (0.52-1.04) mg/dL Glucose (74-99) mg/dL POC Glucose (mg/dL) (75-99) mg/dL Calcium 6.3 L* (8.4-10.2) mg/dL AST (14-36) U/L C-Reactive Protein (<1.0) mg/dL Total Protein (6.3-8.2) g/dL Albumin (3.5-5.0) g/dL Procalcitonin 0.86 H (0.02-0.09) ng/mL Coronavirus (PCR) (Not Detectd) 04/25/21 04/25/21 04/25/21 Range/Units 00:20 03:54 03:55 RBC 3.65 L (3.80-5.40) m/uL MCV 103.9 H (80.0-100.0) fL RDW 15.7 H (11.5-15.5) % Lymphocytes # 0.9 L (1.0-4.8) k/uL ABG pO2 (83-108) mmHg ABG HCO3 (21-25) mmol/L ABG O2 Saturation (94-97) % Sodium 135 L (137-145) mmol/L Chloride (98-107) mmol/L Carbon Dioxide 17 L (22-30) mmol/L BUN 39 H (7-17) mg/dL Creatinine (0.52-1.04) mg/dL Glucose 143 H (74-99) mg/dL POC Glucose (mg/dL) 122 H (75-99) mg/dL Calcium 7.6 L (8.4-10.2) mg/dL AST (14-36) U/L C-Reactive Protein (<1.0) mg/dL Total Protein 5.1 L (6.3-8.2) g/dL Albumin 2.7 L (3.5-5.0) g/dL Procalcitonin (0.02-0.09) ng/mL Coronavirus (PCR) (Not Detectd) 04/25/21 Range/Units 06:17 RBC (3.80-5.40) m/uL MCV (80.0-100.0) fL RDW (11.5-15.5) % Lymphocytes # (1.0-4.8) k/uL ABG pO2 (83-108) mmHg ABG HCO3 (21-25) mmol/L ABG O2 Saturation (94-97) % Sodium (137-145) mmol/L Chloride (98-107) mmol/L Carbon Dioxide (22-30) mmol/L BUN (7-17) mg/dL Creatinine (0.52-1.04) mg/dL Glucose (74-99) mg/dL POC Glucose (mg/dL) 190 H (75-99) mg/dL Calcium (8.4-10.2) mg/dL AST (14-36) U/L C-Reactive Protein (<1.0) mg/dL Total Protein (6.3-8.2) g/dL Albumin (3.5-5.0) g/dL Procalcitonin (0.02-0.09) ng/mL Coronavirus (PCR) (Not Detectd) Assessment and Plan Plan: 1 Acute hypoxic and a story failure secondary to COVID-19 pneumonia the patient has not been vaccinated. The patient became symptomatic more than a week prior to hospital admission. The patient has received multiple antibodies on outpatient basis. Currently she has diffuse bilateral pulmonary infiltrates most on the left and the patient is currently on 100% nonrebreather facemask in addition to an Airvo 60 L, FiO2 of 90%. Chest x-ray was noted. 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 7 Type 2 diabetes. 8 Acute kidney injury, secondary to acute tubular necrosis hypotension and sepsis is strongly suspected, improving with fluids 9 History of hypothyroidism 10 Benign essential hypertension 11 hypotension, likely hypovolemic in nature as the patient was also in acute kidney injury, improving and the patient is on low dose norepinephrine infusion for now 12 Degenerative joint disease and history of MRSA infection Recommendation: Continue high flow oxygen and titrate accordingly, patient may be transitioned to BiPAP, and she may even require intubation and mechanical ventilation if her condition gets any worse. Continue the Decadron at a dose of 6 mg IV every 24 hours May consider the addition of Baricitinib once the patient's blood pressure is normalized and infection is been essentially ruled out. Obviously the patient is not a good candidate for of the severe treatment, noted the primary cultures revealed the possibility of gram-positive bacillus in the blood and this could be potentially contaminant. We are going to repeat the blood cultures 2 and repeat a pro-calcitonin level. No need for antibiotic coverage at this point in time. Give the patient another liter of normal saline. Continue the COVID-19 cocktail. Continue Eliquis 5 mg twice a day No need for CT angiogram or venous Doppler on this patient since she is ma intained on Eliquis. Pro-calcitonin level is low Overall prognosis seems to be extremely guarded, and the patient is marginal at best. Will follow-up on the patient after admission to ICU. Critically care evaluation, more than 30 minutes. Time with Patient: Greater than 30
[2021-04-25] MEDS: INSULIN ASPART (NovoLOG) 100 UNIT/ML VIAL SQ SCH ×4 (07:22→20:19)
[2021-04-25] MEDS: ALBUTEROL HFA INHALER INHALATION SCH ×3 (07:53→19:23)
[2021-04-25] MEDS: SODIUM CHLORIDE 0.9% 1,000 ML IV SCH ×2 (08:25→20:37)
[2021-04-25] MEDS: APIXABAN 5 MG TAB PO SCH ×2 (09:41→20:19)
[2021-04-25] MEDS: CYCLOBENZAPRINE 10 MG TAB PO SCH ×3 (09:42→20:19)
[2021-04-25] MEDS: ATORVASTATIN 40 MG TAB PO SCH (09:42)
[2021-04-25] MEDS: CHOLECALCIFEROL 25 MCG (1000 IU) TABLET PO SCH (09:43)
[2021-04-25] MEDS: DEXAMETHASONE SOD PHOSPHATE 10 MG/ML 1 ML VIAL IVP SCH (09:43)
[2021-04-25] MEDS: FOLIC ACID 1 MG TAB PO SCH (09:43)
[2021-04-25] MEDS: DULoxetine HCL 60 MG CAPSULE.DR PO SCH (09:43)
[2021-04-25] MEDS: INSULIN DETEMIR (LEVEMIR) 100 UNIT/ML SYR SQ SCH ×2 (09:44→20:19)
[2021-04-25] MEDS: NON FORMULARY DRUG (Canagliflozin [Invokana] 300 MG Tablet) PO SCH (09:51)
[2021-04-25 12:11] LABS: Glucose,Whole Blood 190 mg/dL (75-99)
[2021-04-25 17:18] LABS: Glucose,Whole Blood 223 mg/dL (75-99)
--- NOTE | 2021-04-25 18:44 | PN ---
PROGRESS NOTE DATE OF SERVICE: 04/25/2021 This is a 65-year-old woman who was admitted with acute COVID-19 pneumonia and acute bilateral interstitial pneumonia, acute hypoxic respiratory failure on Airvo. The patient is being closely monitored at this time. The chest x-ray which was done yesterday showed extensive bilateral infiltrates highly suggestive of COVID-19 pneumonia. The patient also had a D-dimer which is negative at this time. Sodium is 135. Lactic acid is elevated and procalcitonin is also elevated. The patient is being closely monitored in ICU. Dr. Faria is following the patient closely. The patient's blood sugars are also being monitored. PAST MEDICAL HISTORY: Reviewed. REVIEW OF SYSTEMS: Cardiovascular system: No angina. Respiratory system: As mentioned earlier. GI: As mentioned earlier. : No dysuria. Nervous system: No numbness or weakness. CURRENT MEDICATIONS: Reviewed include Tylenol, Ventolin, Eliquis, Lipitor, Symbicort. Doses reviewed. PHYSICAL EXAMINATION: Patient is alert and oriented. Pulse 100, blood pressure is 95/63, respiration 15, temperature normal, pulse ox 92% on 60% high-flow oxygen. HEENT: Conjunctivae normal. Oral mucosa moist. NECK: No jugular venous distention. No lymph node enlargement. CARDIOVASCULAR: S1, S2, muffled. No S3, no S4, RESPIRATORY: Diminished breath sounds at the bases. A few scattered rhonchi. ABDOMEN: Soft, nontender. LEGS: No edema, no swelling. NERVOUS SYSTEM: No focal deficits. LABS: WBC 4.2, hemoglobin 12.2, sodium 130, potassium 4.9. ASSESSMENT: 1. Acute Covid-19 infection with acute Covid-19 bilateral interstitial pneumonia with acute hypoxic respiratory failure. 2. Hyponatremia. 3. Bilateral leg lesions, possible cellulitis. 4. Increased creatinine with acute renal failure with acute tubular necrosis. 5. Elevated AST. 6. Elevated CRP. 7. Elevated inflammatory markers of Covid-19. 8. Hypoalbuminemia with mild protein-calorie malnutrition. 9. Increased MCV. 10.Diabetes mellitus, type 2. 11.History of DVT. 12.Hypertension. 13.Hyperlipidemia. 14.History of DJD. 15.Hypothyroidism. 16.History of MRSA. 17.History of hysterectomy. 18.FULL CODE. RECOMMENDATIONS AND DISCUSSION: Continue current treatment, continue to monitor, continue symptomatic treatment. Otherwise, at this time repeat labs. Creatinine has slightly improved. Continue the rest of medications. The patient is on steroids and apixaban. Closely follow with Infectious Disease and Pulmonary. Guarded prognosis. Further recommendations to follow. MMODL / IJN: [id number] /
[2021-04-25 20:13] LABS: Glucose,Whole Blood 220 mg/dL (75-99)
[2021-04-25] MEDS: HYDROcodone/APAP 10-325MG 1 EACH TAB PO PRN (20:38)
[2021-04-25] MEDS ORDERED: VANCOMYCIN IV PER PHARMACY 1 EACH MISC MISCELLANE PRN (21:19)
[2021-04-25] MEDS ORDERED: VANCOMYCIN 1,500 MG in SODIUM CHLORIDE 0.9% 250 ML IVPB ONE (21:30)
[2021-04-26 06:02] LABS: Glucose,Whole Blood 110 mg/dL (75-99)
[2021-04-26] MEDS: INSULIN ASPART (NovoLOG) 100 UNIT/ML VIAL SQ SCH ×4 (06:13→20:50)
[2021-04-26] MEDS: LEVOTHYROXINE 137 MCG TAB PO SCH (06:29)
--- NOTE | 2021-04-26 07:02 | P.PN ---
Subjective Progress Note Date: 04/26/21 s, deep vein thrombosis, hypertension, history of hypothyroidism, dyslipidemia, patient is not vaccinated. Patient had symptoms of COVID-19 infection supposedly cough, fever, shortness of breath, aches and pains over 7 days ago. She tested positive for coronavirus 7 days ago. And she received the monoclonal antibodies 2 days ago. Patient has not been doing well, she has been complaining of shortness of breath at home, EMS arrived to see the patient cyanotic, patient was placed on nonrebreather mask, and her O2 saturation came up to the 80s. Patient was also noted to be hypotensive with systolic pressure in the 60s and 80s. She was given a liter of fluid by EMS, and she was brought into the ER. Patient is on anticoagulation therapy for history of chronic deep vein thrombosis and she is compliant with Eliquis at 5 mg twice a day. Seen in the ER this afternoon, patient was noted to be quite hypoxic, and she had 85% O2 saturation on a nonrebreather mask. Patient was placed on airvo, 90% FiO2 and 60 L flow, and her O2 saturation came up to 92%. Patient also had a nonrebreather mask in addition to airvo. EG showed a pO2 of 63 pCO2 of 56 and pH of 7.35. She had a relatively normal CBC. Platelets were normal and PMI is was 62% and lymphocytes were 27%. Metabolic profile showed slightly low sodium of 131, her BUN is 67 creatinine 1.78. Patient normally has a normal creatinine and on 03/05/21, her creatinine was 0.8. Yearly the patient has acute kidney injury with hypotension and abnormal chest x-ray diffuse bilateral infiltrates consistent with COVID-19 pneumonia. Infiltrates seem to be more in the left perihilar area of the most and I evaluated the patient in the ER, and I recommended admission to the ICU. Patient is marginal at best, blood pressure is also marginal with systolic in the low 90s, and mean of 57. Recommended definite admission to the ICU once a bed becomes available. In the meantime the patient is receiving fluids, and she'll be placed on the COVID-19 cocktail. Patient is obviously outside the window for the severe, may consider placing the patient on Baricitinib assuming she has no source of infection and assuming she has a normal pro-calcitonin level. The patient herself is not a great historian. On today's evaluation, this 65-year-old female patient is being seen in follow- up on 04/25/2021. As mentioned earlier, she is a 65-year-old female, known having diabetes mellitus, hypertension, hypothyroidism, hyperlipidemia and previous history of DVT and currently she is in for acute hypoxic respiratory failure for community related pneumonia. The patient tested positive more than a week ago and she received monoclonal antibodies few days back and despite that she progress. She is currently on oxygen flow with Airvo 60 L with 100% FiO2 and addition to 100% nonrebreather facemask. The chest x-ray showing smaller lung volumes, elevation of the right hemidiaphragm which is probably a chronic finding and the patient has extensive bilateral pulmonary infiltrates and consolidation more so on the left involving the left upper lobe left lower lobe and right midlung area. I did also appreciate a cervical spine surgery that was done since 2017 and there are plates and nails and screws for cervical spine fixation. For now, the patient is quite comfortable and current pulse ox 92%. Her blood gases done yesterday showed a pH of 7.35 with a pCO2 of 36 and pO2 of 63. Her inflammatory markers shows appropriate the pro-calcitonin LEVEL OF 0.86, THE PATIENT ALSO HAS A CRP LEVEL OF 22, LDH LEVEL IS STILL PENDING. SUGARS FROM TODAY IS AT 190, ELECTROLYTE SHOWING A COMPONENT OF NON-ANION GAP METABOLIC ACIDOSIS WITH A SERUM BICARB OF 17, BUN OF 39 AND A CREATININE OF 0.8. D-DIMER IS AT 0.4. THE WHITE CELL COUNT IS AT 4.7 WITH HEMOGLOBIN OF 12.2. THE PATIENT WAS STARTED ON DECADRON 6 MG IV EVERY 24 HOURS. THE PATIENT ON ELIQUIS 5 MG BY MOUTH TWICE A DAY. THE PATIENT has been hypotensive since she arrived to the ICU. Her mean arterial pressures around 72. IV fluids are in the form of normal saline at 75 mL an hour. The patient was also started on norepinephrine as 0.03 mcg/kg per minute. Cultures were sent and the results are still pending. Meanwhile, the patient is on no antibiotic coverage for now. The patient on Levemir insulin 30 units twice a day in addition to NovoLog per sliding scale coverage. 04/26/2021, the patient is only on high flow oxygen with Airvo 60 L with an FiO2 of 86%. the patient is quite comfortable with the setting and the patient was taken off the 100% nonrebreather facemask. Her saturation has been ranging between 92 and 93%. She is on Decadron. She has received monoclonal antibodies before her admission. I did not step up immunosuppression as the patient positive blood cultures. Initially her blood culture came back positive for gram-positive bacillus which I thought it was a contaminant and another 2 sets of blood cultures were sent that came back gram-positive cocci. Based on this, the patient was given a dose of vancomycin. Nevertheless, she doesn't have any fever. No hypotension. No signs of any septicemia. Her white cell count currently is at 4.9. Hemoglobin is stable at 12.2 with a platelet count of 236. Rest of the blood work and electrodes were all within normal limits. Note that these are labs from yesterday and still awaiting labs from today. Her most recent pro-calcitonin level is at 0.42. No altered mentation. No nausea or vomiting. No chest pain. She is hemodynamically stable. She is receiving IV fluids in the form of normal saline at the rate of 75 mL's an hour. She is also on Decadron which is running at a dose of 6 mg IV on a daily basis. She is also on antibiotic ventilation with Eliquis 5 mg by mouth twice a day and she is on Levemir insulin 30 units twice a day and a sliding scale coverage. Her blood sugars are under adequate control for now. Note that she has history of hypertension, previous history of DVT, hypothyroidism, hyperlipidemia and she is obese with a BMI of 38.3. Note that she is also off pressors. She has been off pressors for more than 24 hours. Objective - Vital Signs Vital signs: Vital Signs Temp 98.5 F 04/25/21 12:00 Pulse 86 04/26/21 06:00 Resp 22 04/26/21 06:00 BP 112/63 04/26/21 06:00 Pulse Ox 91 L 04/26/21 06:00 Intake & Output 04/25/21 04/25/21 04/26/21 06:59 18:59 06:59 Intake Total 450 3220 1065 Output Total 775 1835 815 Balance -325 1385 250 Weight 98.2 kg 101.2 kg Intake: IV 450 900 825 Sodium Chloride 0.9% 1, 450 900 825 000 ml @ 75 mls/hr IV . [id number] [facility] Rx#:[id number] Intake, IV Titration 1000 Amount Sodium Chloride 0.9% 1, 1000 000 ml @ 999 mls/hr IV . Q1H1M ONE Rx#:[id number] Oral 1080 240 Blood Product 240 Output: Urine 775 7735 815 Other: Voiding Method Indwelling Catheter Indwelling Catheter Indwelling Catheter - Exam Physical Exam revealed a 65-year-old female in moderate respiratory distress, on airvo at 90% FiO2 and 60 L flow , O2 saturations 92%. Head: Atraumatic normocephalic. HEENT:[Neck is supple.] [No neck masses.] [No thyromegaly.] [No JVD.] Chest: Metrical chest expansion crackles bilaterally more so on the left side.] Cardiac Exam: [Normal S1 and S2, no S3 gallop, no murmur.] Abdomen: [Soft, nontender, no megaly, no rebound, no guarding, normal bowel sounds.] Extremities: Chronic venous stasis changes and chronic bruising in lower extremities noted/chronic according to the patient. Patient stated that she bruises easily. Neurological Exam: Alert and oriented 2, poor memory, cannot give much information about her history of the present illness. Psychiatric: Depressed mood, appropriate affect, confused mental status. - Labs CBC & Chem 7: 04/25/21 03:55 04/25/21 03:54 Labs: Abnormal Lab Results - Last 24 Hours (Table) 04/25/21 04/25/21 04/25/21 Range/Units 07:30 12:10 17:16 POC Glucose (mg/dL) 190 H 223 H (75-99) mg/dL Procalcitonin 0.42 H (0.02-0.09) ng/mL 04/25/21 04/26/21 Range/Units 20:11 06:01 POC Glucose (mg/dL) 220 H 110 H (75-99) mg/dL Procalcitonin (0.02-0.09) ng/mL Microbiology - Last 24 Hours (Table) 04/24/21 13:00 Blood Culture Gram Stain - Preliminary Blood 04/24/21 13:00 Blood Culture - Final Blood 04/24/21 12:45 Blood Culture Gram Stain - Preliminary Blood 04/24/21 12:45 Blood Culture - Final Blood Assessment and Plan Plan: 1 Acute hypoxic and a story failure secondary to COVID-19 pneumonia the patient has not been vaccinated. The patient became symptomatic more than a week prior to hospital admission. The patient has received multiple antibodies on outpatient basis. Currently she has diffuse bilateral pulmonary infiltrates most on the left and the patient is currently on Airvo 60 L, FiO2 of 90%. The patient was treated with Decadron 6 mg IV every 24 hours. She remains on to coagulation with Eliquis. Did not step up her immunosuppression due to concerns of an underlying infection. She had several by the blood cultures that came back positive and this needs to be monitored and repleted. She doesn't look or act like septic. She was given a dose of vancomycin yesterday pending further cultures. Overall respiratory status is stable. She is breathing much more comfortably compared to yesterday. 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 7 Type 2 diabetes. 8 Acute kidney injury, secondary to acute tubular necrosis hypotension and sepsis is strongly suspected, improving with fluids 9 History of hypothyroidism 10 Benign essential hypertension 11 hypotension, likely hypovolemic in nature , recovered and the patient is currently off pressors 12 Degenerative joint disease and history of MRSA infection 13 several possible cultures with gram-positive bacilli and gram positive cocci Recommendation: Continue high flow oxygen and titrate accordingly, she is off the 100% nonrebreather facemask Continue the Decadron at a dose of 6 mg IV every 24 hours May consider the addition of Baricitinib once the patient's blood pressure is normalized and infection is been essentially ruled out. Repeat the blood cultures 2 and the patient was given a dose of vancomycin pending results of the blood culture. Continue the COVID-19 cocktail. Continue Eliquis 5 mg twice a day No need for CT angiogram or venous Doppler on this patient since she is maintained on Eliquis. Pro-calcitonin level is low Overall prognosis seems to be extremely guarded, and the patient is marginal at best. Will follow-up on the patient after admission to ICU. Critically care evaluation, more than 30 minutes. Time with Patient: Greater than 30
[2021-04-26] MEDS: CHOLECALCIFEROL 25 MCG (1000 IU) TABLET PO SCH (08:22)
[2021-04-26] MEDS: DULoxetine HCL 60 MG CAPSULE.DR PO SCH (08:22)
[2021-04-26] MEDS: CYCLOBENZAPRINE 10 MG TAB PO SCH ×3 (08:22→20:51)
[2021-04-26] MEDS: FOLIC ACID 1 MG TAB PO SCH (08:22)
[2021-04-26] MEDS: INSULIN DETEMIR (LEVEMIR) 100 UNIT/ML SYR SQ SCH ×2 (08:22→20:50)
[2021-04-26] MEDS: DEXAMETHASONE SOD PHOSPHATE 10 MG/ML 1 ML VIAL IVP SCH (08:22)
[2021-04-26] MEDS: APIXABAN 5 MG TAB PO SCH ×2 (08:22→20:51)
[2021-04-26] MEDS: ATORVASTATIN 40 MG TAB PO SCH (08:22)
[2021-04-26] MEDS: ALBUTEROL HFA INHALER INHALATION SCH ×3 (09:01→19:22)
[2021-04-26 09:44] LABS: Anisocytosis Slight; HCT 38.8 % (34.0-46.0); Hypochromasia Slight; MCH 33.1 pg (25.0-35.0); MCHC 30.9 g/dL (31.0-37.0); MCV 107.1 fL (80.0-100.0); Macrocytosis Marked; Mean Platelet Volume 9.1; Platelet Count 317 k/uL (150-450); RBC 3.63 m/uL (3.80-5.40); RDW 16.2 % (11.5-15.5); WBC 6.6 k/uL (3.8-10.6)
[2021-04-26 10:01] LABS: ALT 16 U/L (4-34); AST 31 U/L (14-36); African American GFR (CKD) >90 (>60 ml/min/1.73 sqM); Albumin 2.7 g/dL (3.5-5.0); Alkaline Phosphatase 56 U/L (38-126); Anion Gap 5 mmol/L; Blood Urea Nitrogen 25 mg/dL (7-17); Calcium 8.1 mg/dL (8.4-10.2); Carbon Dioxide 21 mmol/L (22-30); Chloride 114 mmol/L (98-107); Glucose 143 mg/dL (74-99); Non-African American GFR(CKD) >90 (>60 ml/min/1.73 sqM); Potassium 4.9 mmol/L (3.5-5.1); Sodium 140 mmol/L (137-145); Total Bilirubin 0.5 mg/dL (0.2-1.3); Total Protein 5.3 g/dL (6.3-8.2)
[2021-04-26] MEDS: NON FORMULARY DRUG (Canagliflozin [Invokana] 300 MG Tablet) PO SCH (10:07)
[2021-04-26] MEDS: SODIUM CHLORIDE 0.9% 1,000 ML IV SCH ×2 (10:08→21:00)
[2021-04-26 11:14] LABS: Lymphocytes # (M) 0.66 k/uL (1.0-4.8); Monocytes # (M) 0.73 k/uL (0-1.0); Neutrophils # (M) 5.21 k/uL (1.3-7.7); Neutrophils % (M) 79 %; Nucleated Red Blood Cells 0 /100 WBC (0-0); Total Cells Counted 100
[2021-04-26 11:15] LABS: Anisocytosis (M) Present; Poikilocytosis (M) Present
[2021-04-26 11:16] LABS: Mixed Population RBC Present
[2021-04-26 11:36] LABS: Glucose,Whole Blood 158 mg/dL (75-99)
[2021-04-26] MEDS ORDERED: VANCOMYCIN 1,750 MG in SODIUM CHLORIDE 0.9% 500 ML 500 ML IVPB SCH (12:00)
[2021-04-26] MEDS ORDERED: LORazepam 0.5 MG TAB PO PRN (13:11)
[2021-04-26] MEDS ORDERED: VANCOMYCIN 1,500 MG in SODIUM CHLORIDE 0.9% 250 ML IVPB SCH (14:00)
[2021-04-26 16:39] LABS: Glucose,Whole Blood 145 mg/dL (75-99)
[2021-04-26] MEDS: NOREPINEPHRINE 4 MG in SODIUM CHLORIDE 0.9% 250 ML IV SCH (17:55)
[2021-04-26] MEDS: SYMBICORT 160-4.5 MCG INHALER INHALATION PRN (19:22)
[2021-04-26 20:46] LABS: Glucose,Whole Blood 165 mg/dL (75-99)
[2021-04-26] MEDS: HYDROcodone/APAP 10-325MG 1 EACH TAB PO PRN (21:38)
--- NOTE | 2021-04-26 23:40 | P.PN ---
Subjective Progress Note Date: 04/26/21 This is a 65-year-old female who was recently admitted with acute COVID-19 pneumonia and also acute bilateral interstitial pneumonia with acute hypoxic respiratory failure and is in the ICU being closely monitored. Pulmonary following closely and infectious disease has been consulted. Patient is curren tly continued on Airvo at 60/90 and oxygen saturations in the 90's%. Patient is continued on Eliquis along with IV dexamethasone. Gentle IV hydration as well. Patient denies any chest pain or palpitations. Patient is afebrile. Patient tolerating diet with no report nausea or vomiting. Recommend to continue with close monitoring of blood sugars and continue sliding scale. Labs: WBC is 6.6, hgb is 12.0, plts are 317, sodium is 140, potassium is 4.9, cr is 0.59, calcium is 8.1 Review of systems: Constitutional: No reports of fatigue, fever, or chills Cardiovascular: No reports of chest pain or palpitations Respiratory: reports of continued shortness of breath GI: No reports of nausea, vomiting, or diarrhea : No reports of dysuria or retention Neurovascular: reports of generalized weakness All medications have been reviewed Active Medications Hydrocodone Bitart/Acetaminophen (Hydrocodone/Apap 10-325mg 1 Each Tab) 1 each PO Q6HR PRN PRN Reason: Pain Last Admin: 04/25/21 20:38 Dose: 1 each Documented by: Albuterol Sulfate (Albuterol Hfa Inhaler) 2 puff INHALATION RT-TID [facility] Last Admin: 04/26/21 13:26 Dose: 2 puff Documented by: Apixaban (Apixaban 5 Mg Tab) 5 mg PO BID PREM; Protocol Last Admin: 04/26/21 08:22 Dose: 5 mg Documented by: Atorvastatin Calcium (Atorvastatin 40 Mg Tab) 40 mg PO DAILY [facility] Last Admin: 04/26/21 08:22 Dose: 40 mg Documented by: Budesonide/Formoterol Fumarate (Symbicort 160-4.5 Mcg Inhaler) 2 puff INHA LATION RT-BID PRN PRN Reason: Shortness Of Breath Cholecalciferol (Cholecalciferol 25 Mcg (1000 Iu) Tablet) 25 mcg PO DAILY [facility] Last Admin: 04/26/21 08:22 Dose: 25 mcg Documented by: Cyclobenzaprine HCl (Cyclobenzaprine 10 Mg Tab) 10 mg PO TID [facility] Last Admin: 04/26/21 08:22 Dose: 10 mg Documented by: Dexamethasone Sodium Phosphate (Dexamethasone Sod Phosphate 10 Mg/Ml 1 Ml Vial) 6 mg IVP DAILY [facility] Last Admin: 04/26/21 08:22 Dose: 6 mg Documented by: Duloxetine HCl (Duloxetine Hcl 60 Mg Capsule.Dr) 60 mg PO DAILY [facility] Last Admin: 04/26/21 08:22 Dose: 60 mg Documented by: Folic Acid (Folic Acid 1 Mg Tab) 1 mg PO DAILY [facility] Last Admin: 04/26/21 08:22 Dose: 1 mg Documented by: Sodium Chloride (Saline 0.9%) 1,000 mls @ 75 mls/hr IV .[id number] [facility] Last Admin: 04/26/21 10:08 Dose: 75 mls/hr Documented by: Norepinephrine Bitartrate 4 mg (/ Sodium Chloride) 254 mls @ 19.01 mls/hr IV .[id number] [facility]; Protocol Last Admin: 04/25/21 21:59 Dose: Not Given Documented by: Vancomycin HCl 1,750 mg/ (Sodium Chloride) 500 mls @ 167 mls/hr IVPB Q12H [facility] Last Admin: 04/26/21 11:26 Dose: 167 mls/hr Documented by: Insulin Aspart (Insulin Aspart (Novolog) 100 Unit/Ml Vial) 0 unit SQ ACHS [facility]; Protocol Last Admin: 04/26/21 12:16 Dose: 1 unit Documented by: Insulin Detemir (Insulin Detemir (Levemir) 100 Unit/Ml Syr) 30 unit SQ BID [facility] Last Admin: 04/26/21 08:22 Dose: 30 unit Documented by: Levothyroxine Sodium (Levothyroxine 137 Mcg Tab) 137 mcg PO DAILY@0630 [facility] Last Admin: 04/26/21 06:29 Dose: 137 mcg Documented by: Levothyroxine Sodium (Levothyroxine 137 Mcg Tab) 68.5 mcg PO CHAMBERS [facility] Lorazepam (Lorazepam 0.5 Mg Tab) 0.25 mg PO TID PRN PRN Reason: Anxiety Miscellaneous Information (Vancomycin Trough Due 1 Each Misc) 0 each MISCELLANE DIRECTED ONE Stop: 04/28/21 11:01 Naloxone HCl (Naloxone 0.4 Mg/Ml 1 Ml Vial) 0.2 mg IV Q2M PRN PRN Reason: Opioid Reversal Non-Formulary Medication (Canagliflozin [Invokana]) 300 mg PO DAILY [facility] Last Admin: 04/26/21 10:07 Dose: Not Given Documented by: Physical exam: Gen: This is a 65 year old female who is awake, alert and oriented x3, well developed, well nourished, obese. Temp is 98F, pulse is 98, resp are 26, blood pressure is 117/64, oxygen saturation is 97% on Airvo of 60/90. HEENT: Head is atraumatic, normocephalic. Pupils equal, round. Sclerae is anicteric. NECK: Supple. No JVD. No lymphadenopathy. No thyromegaly. LUNGS: Diminished breath sounds bilaterally with some coarse rhonchi noted. No intercostal retractions. HEART: S1, S2 muffled ABDOMEN: Soft. obese Bowel sounds are present. No masses. No tenderness. EXTREMITIES: No pedal edema. No calf tenderness. NEUROLOGICAL: Patient is awake, alert and oriented x3. Cranial nerves 2 through 12 are grossly intact. Assessment: Acute COVID-19 infection with acute COVID-19 bilateral interstitial pneumonia with acute hypoxic respiratory failure Hyponatremia Bilateral leg lesions, possible cellulitis Increased creatinine with acute renal failure with acute tubular necrosis Elevated AST Elevated CRP Elevated inflammatory markers of COVID-19 hypoalbuminemia with mild protein calorie malnutrition Increased MCV Diabetes mellitus type 2 History of DVT hypertension Hyperlipidemia History of DJD Hypothyroidism history of MRSA History of hysterectomy Full code Plan: Recommend to continue with current medications and management. Wean FI02 as tolerated. Patient is being followed by pulmonary and ID consulted and pending. Patient continues on steroids and Eliquis. Continue IV hydration as kidney functions are trending down. Repeat am labs and will continue to monitor closely. Due to multiple complex medical issues, prognosis is guarded. Objective - Vital Signs Vital signs: Vital Signs Temp 98 F 04/26/21 12:00 Pulse 109 H 04/26/21 15:00 Resp 30 H 04/26/21 15:00 BP 107/59 04/26/21 15:00 Pulse Ox 90 L 04/26/21 15:00 Intake & Output 04/25/21 04/26/21 04/26/21 18:59 06:59 18:59 Intake Total 3220 1140 1580 Output Total 1835 865 600 Balance 1385 275 980 Weight 101.2 kg Intake: IV 900 900 150 Sodium Chloride 0.9% 1, 900 900 150 000 ml @ 75 mls/hr IV . [id number] [facility] Rx#:[id number] Intake, IV Titration 1000 950 Amount Sodium Chloride 0.9% 1, 450 000 ml @ 75 mls/hr IV . [id number] [facility] Rx#:[id number] Sodium Chloride 0.9% 1, 1000 000 ml @ 999 mls/hr IV . Q1H1M [facility] Rx#:[id number] Vancomycin 1,750 mg In 500 Sodium Chloride 0.9% 500 ml 500 ml @ 167 mls/hr IVPB Q12H [facility] Rx#: [id number] Oral 1080 240 480 Blood Product 240 Output: Urine 1835 865 600 Other: Voiding Method Indwelling Catheter Indwelling Catheter Indwelling Catheter - Labs CBC & Chem 7: 04/26/21 09:18 04/26/21 09:18 Labs: Abnormal Lab Results - Last 24 Hours (Table) 04/25/21 04/25/21 04/26/21 Range/Units 17:16 20:11 06:01 RBC (3.80-5.40) m/uL MCV (80.0-100.0) fL MCHC (31.0-37.0) g/dL RDW (11.5-15.5) % Lymphocytes # (Manual) (1.0-4.8) k/uL Macrocytosis Chloride (98-107) mmol/L Carbon Dioxide (22-30) mmol/L BUN (7-17) mg/dL Glucose (74-99) mg/dL POC Glucose (mg/dL) 223 H 220 H 110 H (75-99) mg/dL Calcium (8.4-10.2) mg/dL Total Protein (6.3-8.2) g/dL Albumin (3.5-5.0) g/dL 04/26/21 04/26/21 04/26/21 Range/Units 09:18 09:18 11:34 RBC 3.63 L (3.80-5.40) m/uL MCV 107.1 H (80.0-100.0) fL MCHC 30.9 L (31.0-37.0) g/dL RDW 16.2 H (11.5-15.5) % Lymphocytes # (Manual) 0.66 L (1.0-4.8) k/uL Macrocytosis Marked A Chloride 114 H (98-107) mmol/L Carbon Dioxide 21 L (22-30) mmol/L BUN 25 H (7-17) mg/dL Glucose 143 H (74-99) mg/dL POC Glucose (mg/dL) 158 H (75-99) mg/dL Calcium 8.1 L (8.4-10.2) mg/dL Total Protein 5.3 L (6.3-8.2) g/dL Albumin 2.7 L (3.5-5.0) g/dL Microbiology - Last 24 Hours (Table) 04/24/21 13:00 Blood Culture Gram Stain - Final Blood Blood Culture - Final Micrococcus species 04/24/21 12:45 Blood Culture Gram Stain - Final Blood Blood Culture - Final Bacillus species Not Anthracis 04/25/21 07:30 Blood Culture - Preliminary Blood No Growth after 24 hours 04/25/21 07:30 Blood Culture - Preliminary Blood No Growth after 24 hours 04/24/21 13:00 Blood Culture - Final Blood
--- NOTE | 2021-04-27 | PN ---
PROGRESS NOTE DATE OF SERVICE: 04/26/2021 REASON FOR FOLLOWUP: 1. COVID-19 pneumonia. 2. Positive blood culture. INTERVAL HISTORY: Patient is afebrile, breathing slightly comfortably. Still requiring high-flow nasal oxygen. The patient denies having any chest pain. She did have more cough with occasional sputum. No nausea, vomiting. No abdominal pain or diarrhea. PHYSICAL EXAMINATION: Blood pressure 117/68 with a pulse of 92, temperature 98.7. She is 95% on 90% FiO2. General description is a middle-aged female lying in bed in no distress. Respiratory system: Unlabored breathing with decreased intensity in bases. No wheeze. Heart S1, S2. Regular rate. Abdomen soft, no tenderness. LABS: Creatinine . Blood culture with micrococcus species and bacillus. Patient's followup blood culture has been negative. White count of 6.6, creatinine 0.59. DIAGNOSTIC IMPRESSION AND PLAN: 1. Patient admitted to the hospital with acute respiratory failure secondary to Covid 19 pneumonia in this patient currently on dexamethasone, Eliquis, zinc and ascorbic acid. 2. Patient with positive blood culture with bacillus and micrococcus likely contaminant. Vancomycin to be discontinued. MMODL / IJN: [id number] /
[2021-04-27 05:32] LABS: African American GFR (CKD) >90 (>60 ml/min/1.73 sqM); Anion Gap 6 mmol/L; Blood Urea Nitrogen 24 mg/dL (7-17); Calcium 7.8 mg/dL (8.4-10.2); Carbon Dioxide 20 mmol/L (22-30); Chloride 112 mmol/L (98-107); Glucose 115 mg/dL (74-99); Non-African American GFR(CKD) >90 (>60 ml/min/1.73 sqM); Potassium 4.8 mmol/L (3.5-5.1); Sodium 138 mmol/L (137-145)
[2021-04-27 05:48] LABS: Anisocytosis Slight; Basophils % (A) 0 %; Eosinophils % (A) 0 %; HCT 35.5 % (34.0-46.0); HGB 11.4 gm/dL (11.4-16.0); Lymphocytes # (A) 0.8 k/uL (1.0-4.8); Lymphocytes % (A) 12 %; MCH 33.5 pg (25.0-35.0); MCHC 32.2 g/dL (31.0-37.0); MCV 103.9 fL (80.0-100.0); Macrocytosis Moderate; Monocytes # (A) 0.7 k/uL (0-1.0); Monocytes % (A) 10 %; Neutrophils # (A) 4.9 k/uL (1.3-7.7); Neutrophils % (A) 74 %; Platelet Count 351 k/uL (150-450); RBC 3.42 m/uL (3.80-5.40); RDW 16.3 % (11.5-15.5); WBC 6.6 k/uL (3.8-10.6)
--- NOTE | 2021-04-27 06:44 | XR ---
EXAMINATION TYPE: XR chest 1V portable DATE OF EXAM: 04/27/2021 5:29 AM COMPARISON: Chest radiograph 04/24/2021 CLINICAL INDICATION:Female, 65 years old with history of covid; TECHNIQUE: Frontal view of the chest. FINDINGS: Lungs/Pleura: Increased aeration of the lungs compared to prior. Elevated right diaphragm. Evidence o f pneumothorax or pleural effusion. Pulmonary vascularity: Unremarkable. Heart/mediastinum: Cardiomediastinal silhouette is unremarkable. Musculoskeletal: No acute osseous pathology. Fixation hardware noted in the lower cervical spine. IMPRESSION: Improved aeration of lungs on today's exam with persistent scattered airspace opacities.
[2021-04-27 06:59] LABS: Glucose,Whole Blood 111 mg/dL (75-99)
[2021-04-27] MEDS: INSULIN ASPART (NovoLOG) 100 UNIT/ML VIAL SQ SCH ×4 (07:03→21:03)
[2021-04-27] MEDS: LEVOTHYROXINE 137 MCG TAB PO SCH (07:04)
--- NOTE | 2021-04-27 07:27 | P.PN ---
Subjective Progress Note Date: 04/27/21 s, deep vein thrombosis, hypertension, history of hypothyroidism, dyslipidemia, patient is not vaccinated. Patient had symptoms of COVID-19 infection supposedly cough, fever, shortness of breath, aches and pains over 7 days ago. She tested positive for coronavirus 7 days ago. And she received the monoclonal antibodies 2 days ago. Patient has not been doing well, she has been complaining of shortness of breath at home, EMS arrived to see the patient cyanotic, patient was placed on nonrebreather mask, and her O2 saturation came up to the 80s. Patient was also noted to be hypotensive with systolic pressure in the 60s and 80s. She was given a liter of fluid by EMS, and she was brought into the ER. Patient is on anticoagulation therapy for history of chronic deep vein thrombosis and she is compliant with Eliquis at 5 mg twice a day. Seen in the ER this afternoon, patient was noted to be quite hypoxic, and she had 85% O2 saturation on a nonrebreather mask. Patient was placed on airvo, 90% FiO2 and 60 L flow, and her O2 saturation came up to 92%. Patient also had a nonrebreather mask in addition to airvo. EG showed a pO2 of 63 pCO2 of 56 and pH of 7.35. She had a relatively normal CBC. Platelets were normal and PMI is was 62% and lymphocytes were 27%. Metabolic profile showed slightly low sodium of 131, her BUN is 67 creatinine 1.78. Patient normally has a normal creatinine and on 03/05/21, her creatinine was 0.8. Yearly the patient has acute kidney injury with hypotension and abnormal chest x-ray diffuse bilateral infiltrates consistent with COVID-19 pneumonia. Infiltrates seem to be more in the left perihilar area of the most and I evaluated the patient in the ER, and I recommended admission to the ICU. Patient is marginal at best, blood pressure is also marginal with systolic in the low 90s, and mean of 57. Recommended definite admission to the ICU once a bed becomes available. In the meantime the patient is receiving fluids, and she'll be placed on the COVID-19 cocktail. Patient is obviously outside the window for the severe, may consider placing the patient on Baricitinib assuming she has no source of infection and assuming she has a normal pro-calcitonin level. The patient herself is not a great historian. On today's evaluation, this 65-year-old female patient is being seen in follow- up on 04/25/2021. As mentioned earlier, she is a 65-year-old female, known having diabetes mellitus, hypertension, hypothyroidism, hyperlipidemia and previous history of DVT and currently she is in for acute hypoxic respiratory failure for community related pneumonia. The patient tested positive more than a week ago and she received monoclonal antibodies few days back and despite that she progress. She is currently on oxygen flow with Airvo 60 L with 100% FiO2 and addition to 100% nonrebreather facemask. The chest x-ray showing smaller lung volumes, elevation of the right hemidiaphragm which is probably a chronic finding and the patient has extensive bilateral pulmonary infiltrates and consolidation more so on the left involving the left upper lobe left lower lobe and right midlung area. I did also appreciate a cervical spine surgery that was done since 2017 and there are plates and nails and screws for cervical spine fixation. For now, the patient is quite comfortable and current pulse ox 92%. Her blood gases done yesterday showed a pH of 7.35 with a pCO2 of 36 and pO2 of 63. Her inflammatory markers shows appropriate the pro-calcitonin LEVEL OF 0.86, THE PATIENT ALSO HAS A CRP LEVEL OF 22, LDH LEVEL IS STILL PENDING. SUGARS FROM TODAY IS AT 190, ELECTROLYTE SHOWING A COMPONENT OF NON-ANION GAP METABOLIC ACIDOSIS WITH A SERUM BICARB OF 17, BUN OF 39 AND A CREATININE OF 0.8. D-DIMER IS AT 0.4. THE WHITE CELL COUNT IS AT 4.7 WITH HEMOGLOBIN OF 12.2. THE PATIENT WAS STARTED ON DECADRON 6 MG IV EVERY 24 HOURS. THE PATIENT ON ELIQUIS 5 MG BY MOUTH TWICE A DAY. THE PATIENT has been hypotensive since she arrived to the ICU. Her mean arterial pressures around 72. IV fluids are in the form of normal saline at 75 mL an hour. The patient was also started on norepinephrine as 0.03 mcg/kg per minute. Cultures were sent and the results are still pending. Meanwhile, the patient is on no antibiotic coverage for now. The patient on Levemir insulin 30 units twice a day in addition to NovoLog per sliding scale coverage. 04/26/2021, the patient is only on high flow oxygen with Airvo 60 L with an FiO2 of 86%. the patient is quite comfortable with the setting and the patient was taken off the 100% nonrebreather facemask. Her saturation has been ranging between 92 and 93%. She is on Decadron. She has received monoclonal antibodies before her admission. I did not step up immunosuppression as the patient positive blood cultures. Initially her blood culture came back positive for gram-positive bacillus which I thought it was a contaminant and another 2 sets of blood cultures were sent that came back gram-positive cocci. Based on this, the patient was given a dose of vancomycin. Nevertheless, she doesn't have any fever. No hypotension. No signs of any septicemia. Her white cell count currently is at 4.9. Hemoglobin is stable at 12.2 with a platelet count of 236. Rest of the blood work and electrodes were all within normal limits. Note that these are labs from yesterday and still awaiting labs from today. Her most recent pro-calcitonin level is at 0.42. No altered mentation. No nausea or vomiting. No chest pain. She is hemodynamically stable. She is receiving IV fluids in the form of normal saline at the rate of 75 mL's an hour. She is also on Decadron which is running at a dose of 6 mg IV on a daily basis. She is also on antibiotic ventilation with Eliquis 5 mg by mouth twice a day and she is on Levemir insulin 30 units twice a day and a sliding scale coverage. Her blood sugars are under adequate control for now. Note that she has history of hypertension, previous history of DVT, hypothyroidism, hyperlipidemia and she is obese with a BMI of 38.3. Note that she is also off pressors. She has been off pressors for more than 24 hours. 04/27/2021, the patient is being seen for a follow-up. The patient remains on Airvo 60 L with an FiO2 of 70% and she is currently off the 100% nonrebreather facemask and she is quite comfortable minute is on Decadron. She is on no other immunosuppressive agents due to concern of an underlying infection as the patient had several blood cultures the steel turner to be positive. Nevertheless, I was considering contamination in this patient knowing that the patient had gram- positive cocci and gram-positive bacilli on separate blood cultures. In follow- up, the blood cultures obtained from 04/24/2021 showed micrococcus and other blood culture showed bacillus species. No antibiotics was given. Repeat blood cultures from 04/25/2021 is showing no growth thus far. The patient is afebrile. The patient is hemodynamically stable. White cell count is at 6.6. Platelet count is at 351. BUN is 24 with a creatinine of 0.5, sodium is at 138. Repeat chest x-ray from this morning is showing stable bilateral pulmonary infiltrates and chronic elevation of the right hemidiaphragm probably related to a previous C-spine surgery and manipulation. Pulmonary infiltrates are probably slightly improved on the left. Infiltrates on the right are essentially unchanged and stable. In terms of her pro-calcitonin level, the level came back at 0.42. Inflammatory markers are being monitored. No other significant changes overnight. The patient is on IV fluids currently at 75 mL an hour of normal saline. The fluid balance over the past 24 hours has been +1.6 L. Body mass index is up to 38 Objective - Vital Signs Vital signs: Vital Signs Temp 98.7 F 04/27/21 04:00 Pulse 96 04/27/21 07:00 Resp 38 H 04/27/21 07:00 BP 121/66 04/27/21 07:00 Pulse Ox 91 L 04/27/21 07:00 Intake & Output 04/26/21 04/27/21 04/27/21 18:59 06:59 18:59 Intake Total 2320 865 Output Total 960 560 Balance 1360 305 Weight 102 kg Intake: IV 150 790 0.9 790 Sodium Chloride 0.9% 1, 150 000 ml @ 75 mls/hr IV . [id number] PREM Rx#:[id number] Intake, IV Titration 1325 75 Amount Sodium Chloride 0.9% 1, 825 75 000 ml @ 75 mls/hr IV . [id number] PREM Rx#:[id number] Vancomycin 1,750 mg In 500 Sodium Chloride 0.9% 500 ml 500 ml @ 167 mls/hr IVPB Q12H PREM Rx#: [id number] Oral 845 Output: Urine 960 560 Other: Voiding Method Indwelling Catheter Indwelling Catheter - Exam Physical Exam revealed a 65-year-old female in moderate respiratory distress, on airvo at 70% FiO2 and 60 L flow , O2 saturations 92%. Head: Atraumatic normocephalic. HEENT:[Neck is supple.] [No neck masses.] [No thyromegaly.] [No JVD.] Chest: Metrical chest expansion crackles bilaterally more so on the left side.] Cardiac Exam: [Normal S1 and S2, no S3 gallop, no murmur.] Abdomen: [Soft, nontender, no megaly, no rebound, no guarding, normal bowel sounds.] Extremities: Chronic venous stasis changes and chronic bruising in lower extremities noted/chronic according to the patient. Patient stated that she bruises easily. Neurological Exam: Alert and oriented 2, poor memory, cannot give much information about her history of the present illness. Psychiatric: Depressed mood, appropriate affect, confused mental status. - Labs CBC & Chem 7: 04/27/21 04:37 04/27/21 04:37 Labs: Abnormal Lab Results - Last 24 Hours (Table) 04/26/21 04/26/21 04/26/21 Range/Units 09:18 09:18 11:34 RBC 3.63 L (3.80-5.40) m/uL MCV 107.1 H (80.0-100.0) fL MCHC 30.9 L (31.0-37.0) g/dL RDW 16.2 H (11.5-15.5) % Lymphocytes # (1.0-4.8) k/uL Lymphocytes # (Manual) 0.66 L (1.0-4.8) k/uL Macrocytosis Marked A Chloride 114 H (98-107) mmol/L Carbon Dioxide 21 L (22-30) mmol/L BUN 25 H (7-17) mg/dL Glucose 143 H (74-99) mg/dL POC Glucose (mg/dL) 158 H (75-99) mg/dL Calcium 8.1 L (8.4-10.2) mg/dL Total Protein 5.3 L (6.3-8.2) g/dL Albumin 2.7 L (3.5-5.0) g/dL 04/26/21 04/26/21 04/27/21 Range/Units 16:37 20:45 04:37 RBC 3.42 L (3.80-5.40) m/uL MCV 103.9 H (80.0-100.0) fL MCHC (31.0-37.0) g/dL RDW 16.3 H (11.5-15.5) % Lymphocytes # 0.8 L (1.0-4.8) k/uL Lymphocytes # (Manual) (1.0-4.8) k/uL Macrocytosis Chloride (98-107) mmol/L Carbon Dioxide (22-30) mmol/L BUN (7-17) mg/dL Glucose (74-99) mg/dL POC Glucose (mg/dL) 145 H 165 H (75-99) mg/dL Calcium (8.4-10.2) mg/dL Total Protein (6.3-8.2) g/dL Albumin (3.5-5.0) g/dL 04/27/21 04/27/21 Range/Units 04:37 06:58 RBC (3.80-5.40) m/uL MCV (80.0-100.0) fL MCHC (31.0-37.0) g/dL RDW (11.5-15.5) % Lymphocytes # (1.0-4.8) k/uL Lymphocytes # (Manual) (1.0-4.8) k/uL Macrocytosis Chloride 112 H (98-107) mmol/L Carbon Dioxide 20 L (22-30) mmol/L BUN 24 H (7-17) mg/dL Glucose 115 H (74-99) mg/dL POC Glucose (mg/dL) 111 H (75-99) mg/dL Calcium 7.8 L (8.4-10.2) mg/dL Total Protein (6.3-8.2) g/dL Albumin (3.5-5.0) g/dL Microbiology - Last 24 Hours (Table) 04/24/21 13:00 Blood Culture Gram Stain - Final Blood Blood Culture - Final Micrococcus species 04/24/21 12:45 Blood Culture Gram Stain - Final Blood Blood Culture - Final Bacillus species Not Anthracis 04/25/21 07:30 Blood Culture - Preliminary Blood No Growth after 24 hours 04/25/21 07:30 Blood Culture - Preliminary Blood No Growth after 24 hours Assessment and Plan Plan: 1 Acute hypoxic and a story failure secondary to COVID-19 pneumonia the patient has not been vaccinated. The patient became symptomatic more than a week prior to hospital admission. The patient has received multiple antibodies on outpatient basis. Currently she has diffuse bilateral pulmonary infiltrates most on the left and the patient is currently on Airvo 60 L, FiO2 of 70%. The patient was treated with Decadron 6 mg IV every 24 hours. She remains on to coagulation with Eliquis. Agree stable and the patient's FiO2 has been weaned down to 70%. Her current pulse ox is 91-94%. This probably some more room to wean down the FiO2. No worsening in her breathing for now. 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 7 Type 2 diabetes. 8 Acute kidney injury, secondary to acute tubular necrosis hypotension and sepsis is strongly suspected, improving with fluids 9 History of hypothyroidism 10 Benign essential hypertension 11 hypotension, likely hypovolemic in nature , recovered and the patient is currently off pressors 12 Degenerative joint disease and history of MRSA infection 13 several possible cultures with gram-positive bacilli and gram positive cocci, and the cultures showed micrococcus and bacillus nonanthrax species and repeat cultures from 04/25/2021 showed no microbial growth. Pro-calcitonin level is low. No signs of any septicemia this point in time. Recommendation: Continue high flow oxygen and titrate accordingly, Continue the Decadron at a dose of 6 mg IV every 24 hours Continue the COVID-19 cocktail. Continue Eliquis 5 mg twice a day Pro-calcitonin level is low IVF to KVO Lasix 40 mg IVP x1 Overall prognosis seems to be extremely guarded, and the patient is more stable for now Will . The high flow oxygen at 60 L with an FiO2 of 70% and the patient can be transferred out to a medical floor with remote telemetry.
[2021-04-27] MEDS ORDERED: FUROSEMIDE 10 MG/ML 4 ML VIAL IV STA (07:28)
[2021-04-27] MEDS: ALBUTEROL HFA INHALER INHALATION SCH ×3 (08:39→19:25)
[2021-04-27] MEDS: FOLIC ACID 1 MG TAB PO SCH (08:54)
[2021-04-27] MEDS: APIXABAN 5 MG TAB PO SCH ×2 (08:54→21:04)
[2021-04-27] MEDS: CHOLECALCIFEROL 25 MCG (1000 IU) TABLET PO SCH (08:54)
[2021-04-27] MEDS: ATORVASTATIN 40 MG TAB PO SCH (08:54)
[2021-04-27] MEDS: DEXAMETHASONE SOD PHOSPHATE 10 MG/ML 1 ML VIAL IVP SCH (08:55)
[2021-04-27] MEDS: CYCLOBENZAPRINE 10 MG TAB PO SCH ×3 (08:55→21:04)
[2021-04-27] MEDS: DULoxetine HCL 60 MG CAPSULE.DR PO SCH (08:55)
[2021-04-27] MEDS: INSULIN DETEMIR (LEVEMIR) 100 UNIT/ML SYR SQ SCH ×2 (09:02→21:03)
[2021-04-27] MEDS: NON FORMULARY DRUG (Canagliflozin [Invokana] 300 MG Tablet) PO SCH (09:24)
[2021-04-27] MEDS: NOREPINEPHRINE 4 MG in SODIUM CHLORIDE 0.9% 250 ML IV SCH (09:24)
[2021-04-27 11:42] LABS: Glucose,Whole Blood 68 mg/dL (75-99)
[2021-04-27] MEDS: SODIUM CHLORIDE 0.9% 1,000 ML IV SCH (11:49)
[2021-04-27 12:02] LABS: Glucose,Whole Blood 76 mg/dL (75-99)
[2021-04-27 17:04] LABS: Glucose,Whole Blood 125 mg/dL (75-99)
--- NOTE | 2021-04-27 19:30 | PN ---
PROGRESS NOTE DATE OF SERVICE: 04/27/2021 This 65-year-old woman was admitted with acute COVID-19 infection with bilateral interstitial pneumonia ( ) hypoxic. Patient monitored in the ICU. Patient is on Airvo at this time. The most recent chest x-ray which was reviewed personally by me showed acute bilateral interstitial pneumonia with some elevated right hemidiaphragm. Dr. Faria is following the patient closely. The patient is on dexamethasone and apixaban. The blood sugars also been monitored closely. No chest pain. No palpitations. PAST MEDICAL HISTORY: Reviewed. REVIEW OF SYSTEMS: Cardiovascular system: No angina. Respiratory system: As mentioned earlier. GI: As mentioned earlier. : No dysuria. Nervous system: No numbness or weakness. CURRENT MEDICATIONS: Reviewed include [place], Ventolin, Eliquis, Lipitor, Symbicort. Doses are reviewed. EXAMINATION: Patient is alert and oriented x3. Pulse is 80, blood pressure is 126/70, respiration 27, respirations 16, temperature 98.4, pulse ox 94% on high-flow oxygen. HEENT: Conjunctivae normal. Oral mucosa moist. NECK: No jugular venous distention. No lymph node enlargement. CARDIOVASCULAR: S1, S2, muffled. No S3, no S4, RESPIRATORY: Diminished breath sounds at the bases. A few scattered rhonchi and crackles. ABDOMEN: Soft. NERVOUS SYSTEM: No focal deficits. LABS: WBC 6.2, hemoglobin 11.5. Accu-Cheks noted. ASSESSMENT: 1. Acute COVID-19 infection with acute COVID-19 bilateral interstitial pneumonia with acute hypoxic respiratory failure on Airvo. 2. Hyponatremia. 3. Bilateral leg lesions, possible acute cellulitis. 4. Increased creatinine with acute renal failure with acute tubular necrosis, prerenal factors. 5. Elevated AST. 6. Elevated CRP. 7. Elevated inflammatory markers of COVID-19. 8. Hypoalbuminemia with mild protein-calorie malnutrition. 9. Increased MCV. 10.Diabetes mellitus, type 2. 11.History of deep vein thrombosis. 12.Hypertension. 13.Hyperlipidemia. 14.History of DJD. 15.Hypothyroidism. 16.History of MRSA. 17.History of hysterectomy. 18.FULL CODE. RECOMMENDATIONS: Continue current management, continue symptomatic treatment. Continue with Airvo. Continue with steroids. Continue the apixaban. Continue the rest of medications. Ensure oxygenation. Prognosis guarded because of multiple complex medical issues. Further recommendations to follow. MMODL / IJN: [id number] /
[2021-04-27 19:52] LABS: Glucose,Whole Blood 192 mg/dL (75-99)
--- NOTE | 2021-04-27 20:10 | PN ---
PROGRESS NOTE DATE OF SERVICE: 04/27/2021 REASON FOR FOLLOWUP: COVID-19 pneumonia. INTERVAL HISTORY: The patient is afebrile. The patient is breathing slightly comfortably. The patient's FiO2 is currently down to 60%. Patient denies having any chest pain or worsening cough or sputum production. No abdominal pain or diarrhea. PHYSICAL EXAMINATION: Blood pressure 120/67, pulse of 80, temperature 98.5. She is 94% on 60% FiO2. General description is a middle-aged female lying in bed in no distress. Respiratory system: Unlabored breathing. Coarse breath sounds bilaterally. No wheeze. Heart S1, S2. Regular rate and rhythm. Abdomen soft, no tenderness. LABS: Hemoglobin is 11.4, white count 6.6, creatinine 0.58. DIAGNOSTIC IMPRESSION AND PLAN: 1. Patient with acute respiratory failure secondary to COVID-19 pneumonia, for which the patient is currently covered with dexamethasone, Eliquis, zinc and ascorbic acid. 2. Positive blood culture with micrococcus likely contaminant, and no need for systemic antibiotic therapy. MMODL / IJN: [id number] /
[2021-04-28 04:38] LABS: African American GFR (CKD) >90 (>60 ml/min/1.73 sqM); Anion Gap 7 mmol/L; Blood Urea Nitrogen 29 mg/dL (7-17); Calcium 8.1 mg/dL (8.4-10.2); Carbon Dioxide 24 mmol/L (22-30); Chloride 109 mmol/L (98-107); Glucose 116 mg/dL (74-99); Non-African American GFR(CKD) >90 (>60 ml/min/1.73 sqM); Potassium 4.5 mmol/L (3.5-5.1); Sodium 140 mmol/L (137-145)
[2021-04-28 06:37] LABS: Glucose,Whole Blood 87 mg/dL (75-99)
[2021-04-28] MEDS: INSULIN ASPART (NovoLOG) 100 UNIT/ML VIAL SQ SCH ×4 (06:43→21:22)
[2021-04-28] MEDS: ALBUTEROL HFA INHALER INHALATION SCH ×3 (07:31→21:53)
[2021-04-28] MEDS: SYMBICORT 160-4.5 MCG INHALER INHALATION PRN ×2 (07:32→21:56)
--- NOTE | 2021-04-28 07:35 | P.PN ---
Subjective Progress Note Date: 04/28/21 Principal diagnosis: CoVID pneumonia On today's evaluation, this 65-year-old female patient is being seen in follow- up on 04/25/2021. As mentioned earlier, she is a 65-year-old female, known having diabetes mellitus, hypertension, hypothyroidism, hyperlipidemia and previous history of DVT and currently she is in for acute hypoxic respiratory failure for community related pneumonia. The patient tested positive more than a week ago and she received monoclonal antibodies few days back and despite that she progress. She is currently on oxygen flow with Airvo 60 L with 100% FiO2 and addition to 100% nonrebreather facemask. The chest x-ray showing smaller lung volumes, elevation of the right hemidiaphragm which is probably a chronic finding and the patient has extensive bilateral pulmonary infiltrates and consolidation more so on the left involving the left upper lobe left lower lobe and right midlung area. I did also appreciate a cervical spine surgery that was done since 2017 and there are plates and nails and screws for cervical spine fixation. For now, the patient is quite comfortable and current pulse ox 92%. Her blood gases done yesterday showed a pH of 7.35 with a pCO2 of 36 and pO2 of 63. Her inflammatory markers shows appropriate the pro-calcitonin LEVEL OF 0.86, THE PATIENT ALSO HAS A CRP LEVEL OF 22, LDH LEVEL IS STILL PENDING. SUGARS FROM TODAY IS AT 190, ELECTROLYTE SHOWING A COMPONENT OF NON-ANION GAP METABOLIC ACIDOSIS WITH A SERUM BICARB OF 17, BUN OF 39 AND A CREATININE OF 0.8. D-DIMER IS AT 0.4. THE WHITE CELL COUNT IS AT 4.7 WITH HEMOGLOBIN OF 12.2. THE PATIENT WAS STARTED ON DECADRON 6 MG IV EVERY 24 HOURS. THE PATIENT ON EL IQUIS 5 MG BY MOUTH TWICE A DAY. THE PATIENT has been hypotensive since she arrived to the ICU. Her mean arterial pressures around 72. IV fluids are in the form of normal saline at 75 mL an hour. The patient was also started on norepinephrine as 0.03 mcg/kg per minute. Cultures were sent and the results are still pending. Meanwhile, the patient is on no antibiotic coverage for now. The patient on Levemir insulin 30 units twice a day in addition to NovoLog per sliding scale coverage. 04/26/2021, the patient is only on high flow oxygen with Airvo 60 L with an FiO2 of 86%. the patient is quite comfortable with the setting and the patient was taken off the 100% nonrebreather facemask. Her saturation has been ranging between 92 and 93%. She is on Decadron. She has received monoclonal antibodies before her admission. I did not step up immunosuppression as the patient positive blood cultures. Initially her blood culture came back positive for gram-positive bacillus which I thought it was a contaminant and another 2 sets of blood cultures were sent that came back gram-positive cocci. Based on this, the patient was given a dose of vancomycin. Nevertheless, she doesn't have any fever. No hypotension. No signs of any septicemia. Her white cell count currently is at 4.9. Hemoglobin is stable at 12.2 with a platelet count of 236. Rest of the blood work and electrodes were all within normal limits. Note that these are labs from yesterday and still awaiting labs from today. Her most recent pro-calcitonin level is at 0.42. No altered mentation. No nausea or vomiting. No chest pain. She is hemodynamically stable. She is receiving IV fluids in the form of normal saline at the rate of 75 mL's an hour. She is also on Decadron which is running at a dose of 6 mg IV on a daily basis. She is also on antibiotic ventilation with Eliquis 5 mg by mouth twice a day and she is on Levemir insulin 30 units twice a day and a sliding scale coverage. Her blood sugars are under adequate control for now. Note that she has history of hypertension, previous history of DVT, hypothyroidism, hyperlipidemia and she is obese with a BMI of 38.3. Note that she is also off pressors. She has been off pressors for more than 24 hours. 04/27/2021, the patient is being seen for a follow-up. The patient remains on Airvo 60 L with an FiO2 of 70% and she is currently off the 100% nonrebreather facemask and she is quite comfortable minute is on Decadron. She is on no other immunosuppressive agents due to concern of an underlying infection as the patient had several blood cultures the turning sander tender to be positive. Nevertheless, I was considering contamination in this patient knowing that the patient had gram- positive cocci and gram-positive bacilli on separate blood cultures. In follow- up, the blood cultures obtained from 04/24/2021 showed micrococcus and other blood culture showed bacillus species. No antibiotics was given. Repeat blood cultures from 04/25/2021 is showing no growth thus far. The patient is afebrile. The patient is hemodynamically stable. White cell count is at 6.6. Platelet count is at 351. BUN is 24 with a creatinine of 0.5, sodium is at 138. Repeat chest x-ray from this morning is showing stable bilateral pulmonary infiltrates and chronic elevation of the right hemidiaphragm probably related to a previous C-spine surgery and manipulation. Pulmonary infiltrates are probably slightly improved on the left. Infiltrates on the right are essentially unchanged and stable. In terms of her pro-calcitonin level, the level came back at 0.42. Inflammatory markers are being monitored. No other significant changes overnight. The patient is on IV fluids currently at 75 mL an hour of normal saline. The fluid balance over the past 24 hours has been +1.6 L. Body mass index is up to 38 The patient is seen today 04/28/2021 in follow-up on the intensive care unit. She is currently sitting up in bed. Awake and alert in no acute distress. He is currently on AirVo high flow oxygen at 60 L and 60% FiO2. She's afebrile. Hemodynamically stable. Chest x-ray shows improved aeration of the lungs on yesterday's exam with persistent scattered airspace opacities. Follow-up blood cultures revealed no growth. Sodium 140. Potassium 4.5. Bicarb 24. Creatinine 0.57. Glucose 116. She is continued on Decadron, Eliquis. She is continued on Symbicort, albuterol. She remains in a -1.9 L balance. Her appetite is poor. Objective - Vital Signs Vital signs: Vital Signs Temp 98.4 F 04/28/21 02:00 Pulse 76 04/28/21 02:00 Resp 25 H 04/28/21 02:00 BP 129/78 04/28/21 02:00 Pulse Ox 93 L 04/28/21 03:26 Intake & Output 04/27/21 04/28/21 04/28/21 18:59 06:59 18:59 Intake Total 700 480 Output Total 3385 625 Balance -1965 -145 Weight 99.3 kg Intake: Intake, IV Titration 220 240 Amount Sodium Chloride 0.9% 1 220 240 000 ml @ 20 mls/hr IV . Q24H [facility] Rx#:[id number] Oral 480 240 Output: Urine 2665 625 Other: Voiding Method Indwelling Catheter Indwelling Catheter - Exam GENERAL EXAM: Alert, Very pleasant 65-year-old female patient, on AirVo at 60 L and 60% FiO2, fairly comfortable in no apparent distress. HEAD: Normocephalic. EYES: Normal reaction of pupils, equal size. NOSE: Clear with pink turbinates. THROAT: No erythema or exudates. NECK: No masses, no JVD. CHEST: No chest wall deformity. LUNGS: Equal air entry with coarse crackles in the bilateral bases. CVS: S1 and S2 normal with no audible murmur, regular rhythm. ABDOMEN: No hepatosplenomegaly, normal bowel sounds, no guarding or rigidity. SPINE: No scoliosis or deformity SKIN: No rashes CENTRAL NERVOUS SYSTEM: No focal deficits, tone is normal in all 4 extremities. EXTREMITIES: There is no peripheral edema. No clubbing, no cyanosis. Peripheral pulses are intact. - Labs CBC & Chem 7: 04/27/21 04:37 04/28/21 03:52 Labs: Abnormal Lab Results - Last 24 Hours (Table) 04/27/21 04/27/21 04/27/21 Range/Units 11:40 17:02 19:50 Chloride (98-107) mmol/L BUN (7-17) mg/dL Glucose (74-99) mg/dL POC Glucose (mg/dL) 68 L 125 H 192 H (75-99) mg/dL Calcium (8.4-10.2) mg/dL 04/28/21 Range/Units 03:52 Chloride 109 H (98-107) mmol/L BUN 29 H (7-17) mg/dL Glucose 116 H (74-99) mg/dL POC Glucose (mg/dL) (75-99) mg/dL Calcium 8.1 L (8.4-10.2) mg/dL Microbiology - Last 24 Hours (Table) 04/24/21 12:45 Blood Culture Gram Stain - Preliminary Blood Blood Culture - Preliminary Bacillus species Not Anthracis Coagulase Negative Staph 04/26/21 09:24 Blood Culture - Preliminary Blood No Growth after 24 hours 04/26/21 09:28 Blood Culture - Preliminary Blood No Growth after 24 hours 04/25/21 07:30 Blood Culture - Preliminary Blood No Growth after 48 hours 04/25/21 07:30 Blood Culture - Preliminary Blood No Growth after 48 hours 04/24/21 12:45 Blood Culture - Final Blood Assessment and Plan Assessment: 1 Acute hypoxic and a story failure secondary to COVID-19 pneumonia the patient has not been vaccinated. The patient became symptomatic more than a week prior to hospital admission. The patient has received multiple antibodies on outpatient basis. Currently she has diffuse bilateral pulmonary infiltrates most on the left and the patient is currently on Airvo 60 L, FiO2 of 60%. The patient was treated with Decadron 6 mg IV every 24 hours. She remains on to coagulation with Eliquis. 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 7 Type 2 diabetes. 8 Acute kidney injury, secondary to acute tubular necrosis hypotension and sepsis is strongly suspected, improving with fluids 9 History of hypothyroidism 10 Benign essential hypertension 11 hypotension, likely hypovolemic in nature , recovered and the patient is currently off pressors 12 Degenerative joint disease and history of MRSA infection 13 several possible cultures with gram-positive bacilli and gram positive cocci, and the cultures showed micrococcus and bacillus nonanthrax species and repeat cultures from 04/25/2021 showed no microbial growth. Pro-calcitonin level is low. No signs of any septicemia this point in time. Plan: The patient was seen and evaluated Currently stable on AirVo at 60 L and 60% FiO2 She is encouraged to increase the use the incentive spirometer Titrate the FiO2 as tolerated Increase her activity as tolerated Encouraged adequate oral intake Follow-up chest x-ray and labs in the a.m. Transfer to [facility] once a bed is available I, the cosigning physician, performed a history & physical examination of the patient. Lungs sounds are coarse crackles in the posterior bases. Maintaining O2 saturations in the 90s on AirVo high flow oxygen at 60 L and 60% FiO2. I discussed the assessment and plan of care with my nurse practitioner, Tonia Nugent. I attest to the above note as dictated by her.
[2021-04-28] MEDS: NON FORMULARY DRUG (Canagliflozin [Invokana] 300 MG Tablet) PO SCH (09:35)
[2021-04-28] MEDS: LEVOTHYROXINE 137 MCG TAB PO SCH ×2 (09:35→09:36)
[2021-04-28] MEDS: APIXABAN 5 MG TAB PO SCH ×2 (09:37→21:23)
[2021-04-28] MEDS: ASCORBIC ACID 500 MG TAB PO SCH (09:37)
[2021-04-28] MEDS: DULoxetine HCL 60 MG CAPSULE.DR PO SCH (09:38)
[2021-04-28] MEDS: INSULIN DETEMIR (LEVEMIR) 100 UNIT/ML SYR SQ SCH ×2 (09:38→21:22)
[2021-04-28] MEDS: FOLIC ACID 1 MG TAB PO SCH (09:38)
[2021-04-28] MEDS: ATORVASTATIN 40 MG TAB PO SCH (09:39)
[2021-04-28] MEDS: CYCLOBENZAPRINE 10 MG TAB PO SCH ×3 (09:39→21:23)
[2021-04-28] MEDS: CHOLECALCIFEROL 25 MCG (1000 IU) TABLET PO SCH (09:39)
[2021-04-28] MEDS: DEXAMETHASONE SOD PHOSPHATE 10 MG/ML 1 ML VIAL IVP SCH (09:40)
[2021-04-28] MEDS ORDERED: VANCOMYCIN TROUGH DUE 1 EACH MISC MISCELLANE ONE (11:00)
[2021-04-28 12:11] LABS: Glucose,Whole Blood 97 mg/dL (75-99)
[2021-04-28] MEDS: SODIUM CHLORIDE 0.9% 1,000 ML IV SCH (13:32)
[2021-04-28 16:46] LABS: Glucose,Whole Blood 133 mg/dL (75-99)
[2021-04-28 21:07] LABS: Glucose,Whole Blood 141 mg/dL (75-99)
[2021-04-28] MEDS: HYDROcodone/APAP 10-325MG 1 EACH TAB PO PRN (21:23)
--- NOTE | 2021-04-28 21:59 | PN ---
PROGRESS NOTE DATE OF SERVICE: 04/28/2021 This 65-year-old woman who was admitted with acute COVID-19 infection and acute COVID- 19 bilateral interstitial pneumonia with acute hypoxic respiratory failure is on AIRVO at this time. The patient is being closely monitored in ICU. The most recent chest x- ray which was done yesterday and reviewed personally by me showed extensive bilateral infiltrates and elevated right hemidiaphragm also. Past medical history reviewed. REVIEW OF SYSTEMS: CARDIOVASCULAR SYSTEM: No angina. RESPIRATION: As mentioned earlier. GI: As mentioned earlier. : No dysuria. NERVOUS SYSTEM: No numbness, weakness. CURRENT MEDICATIONS: Reviewed. They include [place], Ventolin, Eliquis, vitamin C, Lipitor, Symbicort. Doses are reviewed. PHYSICAL EXAMINATION: Patient is alert, oriented x3. Pulse 89, blood pressure 134/79, respiration 17, temperature 98.3, pulse ox 90% on AIRVO. HEENT: Conjunctivae normal. NECK: No jugular venous distention. CARDIOVASCULAR: S1, S2 muffled. RESPIRATION: Breath sounds diminished at the bases. A few scattered rhonchi. ABDOMEN: Soft. NERVOUS SYSTEM: No focal deficit. LABS: Sodium 140, potassium 4.5. ASSESSMENT: 1. Acute COVID-19 infection with acute COVID-19 bilateral interstitial pneumonia with acute hypoxic respiratory failure, on AIRVO. 2. Hyponatremia. 3. Bilateral leg lesions, possibly acute cellulitis. 4. Increased creatinine with acute renal failure with acute tubular necrosis, prerenal factors. 5. Elevated AST. 6. Elevated CRP. 7. Elevated inflammatory markers of COVID-19. 8. Hypoalbuminemia with mild protein-calorie malnutrition. 9. Increased mean corpuscular volume. 10.Diabetes mellitus, type 2. 11.History of deep vein thrombosis. 12.Hypertension. 13.Hyperlipidemia. 14.History of degenerative joint disease. 15.Hypothyroidism. 16.History of MRSA. 17.History of hysterectomy. 18.FULL CODE. RECOMMENDATIONS AND DISCUSSION: I recommend to continue current medications, continue with the monitoring, symptomatic treatment. Otherwise at this time I recommend continuing with the bronchodilators. Continue with the steroids. Continue with the Lovenox. Continue the rest of the medications. Repeat labs. Otherwise, closely follow with Pulmonary. Incentive spirometry. Attempt to titrate from AIRVO and further recommendations to follow. MMODL / IJN: [id number] /
--- NOTE | 2021-04-28 22:56 | PN ---
PROGRESS NOTE DATE OF SERVICE: 04/28/2020 REASON FOR FOLLOWUP: COVID-19 pneumonia. INTERVAL HISTORY: Patient is afebrile. The patient is breathing comfortably. The patient being transferred out of the ICU, currently on AIRVO. The patient denies having any chest pain. No worsening cough or sputum production. No abdominal pain. No diarrhea. PHYSICAL EXAMINATION: Blood pressure 134/79 with a pulse of 89, temperature 98.3. She is 90% on 50% FIO2. General description is a middle-aged female lying in bed in no distress. Respiratory system: Unlabored breathing, decreased intensity of breath sounds. No wheeze. Heart S1, S2. Regular rate and rhythm. Abdomen soft, no tenderness. LABS: Creatinine 0.57. DIAGNOSTIC IMPRESSION AND PLAN: Patient with acute COVID-19 pneumonia with slow clinical improvement. Patient is currently on Dexamethasone, Eliquis, zinc and ascorbic acid to continue while monitoring clinical course closely. MMODL / IJN: [id number] /
[2021-04-29] MEDS: LEVOTHYROXINE 137 MCG TAB PO SCH (06:02)
[2021-04-29 07:23] LABS: Glucose,Whole Blood 42 mg/dL (75-99)
[2021-04-29 07:23] LABS: Glucose,Whole Blood 43 mg/dL (75-99)
[2021-04-29 07:48] LABS: Glucose,Whole Blood 60 mg/dL (75-99)
[2021-04-29] MEDS: ALBUTEROL HFA INHALER INHALATION SCH ×3 (08:05→20:54)
[2021-04-29] MEDS: SYMBICORT 160-4.5 MCG INHALER INHALATION PRN (08:05)
[2021-04-29] MEDS: INSULIN ASPART (NovoLOG) 100 UNIT/ML VIAL SQ SCH ×4 (08:24→20:55)
[2021-04-29] MEDS: NON FORMULARY DRUG (Canagliflozin [Invokana] 300 MG Tablet) PO SCH (08:24)
[2021-04-29 08:31] LABS: Glucose,Whole Blood 159 mg/dL (75-99)
--- NOTE | 2021-04-29 08:32 | XR ---
EXAMINATION TYPE: XR chest 1V portable DATE OF EXAM: 04/29/2021 CLINICAL HISTORY: Difficulty breathing and covid pneumonia progress study. TECHNIQUE: Single AP portable upright view of the chest is obtained. COMPARISON: Chest x-ray from 2 days earlier and older studies. FINDINGS: Persistent elevated right hemidiaphragm with bilateral multifocal increased opacities. Car diac silhouette size stable and within normal limits. Surgical change of cervical spine is redemonstr ated. IMPRESSION: Elevated right hemidiaphragm with bilateral multifocal increased opacities consistent wit h covid-19 infection remain present. No significant change from most recent x-ray.
[2021-04-29] MEDS: INSULIN DETEMIR (LEVEMIR) 100 UNIT/ML SYR SQ SCH ×2 (08:52→20:55)
[2021-04-29] MEDS: DEXAMETHASONE SOD PHOSPHATE 10 MG/ML 1 ML VIAL IVP SCH (09:00)
[2021-04-29] MEDS: CHOLECALCIFEROL 25 MCG (1000 IU) TABLET PO SCH (09:01)
[2021-04-29] MEDS: ATORVASTATIN 40 MG TAB PO SCH (09:01)
[2021-04-29] MEDS: APIXABAN 5 MG TAB PO SCH ×2 (09:01→20:43)
[2021-04-29] MEDS: FOLIC ACID 1 MG TAB PO SCH (09:01)
[2021-04-29] MEDS: CYCLOBENZAPRINE 10 MG TAB PO SCH ×3 (09:01→20:55)
[2021-04-29] MEDS: ASCORBIC ACID 500 MG TAB PO SCH (09:01)
[2021-04-29] MEDS: DULoxetine HCL 60 MG CAPSULE.DR PO SCH (09:01)
[2021-04-29 09:30] LABS: ALT 19 U/L (4-34); AST 26 U/L (14-36); Albumin 2.7 g/dL (3.5-5.0); Albumin/Globulin Ratio 1.1; Alkaline Phosphatase 61 U/L (38-126); C Reactive Protein 1.7 mg/dL (<1.0); Globulin 2.4 g/dL; LDH 1012 U/L (313-618); Total Bilirubin 0.8 mg/dL (0.2-1.3); Total Protein 5.1 g/dL (6.3-8.2)
[2021-04-29 11:01] LABS: HCT 39.7 % (37.2-46.3); HGB 12.3 g/dL (12.0-15.0); MCH 32.6 pg (27.0-32.0); MCV 105.3 fL (80.0-97.0); Mean Platelet Volume 10.7 fL (9.5-12.2); Platelet Count 268 X 10*3/uL (140-440); RBC 3.77 X 10*6/uL (4.10-5.20); RDW 15.3 % (11.5-14.5); WBC 8.52 X 10*3/uL (4.50-10.00)
[2021-04-29] MEDS: SODIUM CHLORIDE 0.9% 1,000 ML IV SCH (11:29)
[2021-04-29 11:57] LABS: African American GFR (CKD) >90 (>60 ml/min/1.73 sqM); Anion Gap 9 mmol/L; Blood Urea Nitrogen 26 mg/dL (7-17); Calcium 8.4 mg/dL (8.4-10.2); Carbon Dioxide 23 mmol/L (22-30); Chloride 109 mmol/L (98-107); Glucose 140 mg/dL (74-99); Non-African American GFR(CKD) >90 (>60 ml/min/1.73 sqM); Potassium 4.1 mmol/L (3.5-5.1); Sodium 141 mmol/L (137-145)
[2021-04-29 12:01] LABS: Basophils # (A) 0.05 X 10*3/uL (0.00-0.10); Basophils % (A) 0.6 %; Eosinophils # (A) 0.07 X 10*3/uL (0.04-0.35); Eosinophils % (A) 0.8 %; Lymphocytes # (A) 1.22 X 10*3/uL (0.90-5.00); Lymphocytes % (A) 14.3 %; Monocytes # (A) 0.74 X 10*3/uL (0.20-1.00); Monocytes % (A) 8.7 %; Neutrophils # (A) 6.02 X 10*3/uL (1.80-7.70); Neutrophils % (A) 70.7 %
[2021-04-29 12:05] LABS: Glucose,Whole Blood 143 mg/dL (75-99)
[2021-04-29 16:49] LABS: Glucose,Whole Blood 283 mg/dL (75-99)
--- NOTE | 2021-04-29 17:14 | P.PN ---
Subjective Progress Note Date: 04/29/21 Principal diagnosis: Dyspnea On 04/29/2021 patient seen in follow-up on medical surgical floor. She is awake and alert, in no acute distress, she remains on Airvo at 55% FiO2 of 60%. She is up in the chair she was transferred out of intensive care unit yesterday. Stable overnight, no acute events, lung sounds reveal some diffuse crackles, she is working on incentive spirometer she says achieve an 1000. She remains on Symbicort and albuterol inhaled bronchodilators, she remains on Decadron 6 mg daily. Patient is on anticoagulation in the form of Eliquis for history of chronic DVT. Overall FiO2 has been cut back and patient has maintained stable O2 saturations without worsening dyspnea. His labs have been reviewed her white blood cell count is 8.5, hemoglobin is 12.3, platelet count is 268, d-dimer is 11.26, sodium is 141, potassium is 4.1, chloride is 109, BUN is 26 creatinine 0.51. Her LDH is 1012, CRP was 1.7, pro calcitonin level was improved and was down to 0.05 Objective - Vital Signs Vital signs: Vital Signs Temp 98 F 04/29/21 15:31 Pulse 89 04/29/21 15:31 Resp 16 04/29/21 15:31 BP 120/66 04/29/21 15:31 Pulse Ox 96 04/29/21 15:31 Intake & Output 04/28/21 04/29/21 04/29/21 18:59 06:59 18:59 Output Total 375 480 300 Balance -375 -480 -300 Output: Urine 375 480 300 Other: Voiding Method Indwelling Catheter Indwelling Catheter Indwelling Catheter # Bowel Movements 0 - Exam GENERAL EXAM: Alert, very pleasant, 66-year-old white female, on [place] with 55 L and FiO2 of 50% comfortable in no apparent distress. HEAD: Normocephalic/atraumatic. EYES: Normal reaction of pupils, equal size. Conjunctiva pink, sclera white. NOSE: Clear with pink turbinates. THROAT: No erythema or exudates. NECK: No masses, no JVD, no thyroid enlargement, no adenopathy. CHEST: No chest wall deformity. Symmetrical expansion. LUNGS: Equal air entry with bibasilar crackles CVS: Regular rate and rhythm, normal S1 and S2, no gallops, no murmurs, no rubs ABDOMEN: Soft, nontender. No hepatosplenomegaly, normal bowel sounds, no guarding or rigidity. EXTREMITIES: No clubbing, no edema, no cyanosis, 2+ pulses and upper and lower extremities. MUSCULOSKELETAL: Muscle strength and tone normal. SPINE: No scoliosis or deformity SKIN: No rashes CENTRAL NERVOUS SYSTEM: Alert and oriented -3. No focal deficits, tone is normal in all 4 extremities. PSYCHIATRIC: Alert and oriented -3. Appropriate affect. Intact judgment and insight. - Labs CBC & Chem 7: 04/29/21 08:14 04/29/21 08:14 Labs: Abnormal Lab Results - Last 24 Hours (Table) 04/28/21 04/29/21 04/29/21 Range/Units 20:56 07:21 07:22 RBC (4.10-5.20) X 10*6/uL MCV (80.0-97.0) fL MCH (27.0-32.0) pg MCHC (32.0-37.0) g/dL RDW (11.5-14.5) % Absolute Nucleated RBC (0.00-0.00) X 10*3/uL Immature Gran # (0.00-0.04) X 10*3/uL NRBC/100 WBC Diff (0.0-0.0) /100 WBCS D-Dimer (<0.60) mg/L FEU Chloride (98-107) mmol/L BUN (7-17) mg/dL Creatinine (0.52-1.04) mg/dL Glucose (74-99) mg/dL POC Glucose (mg/dL) 141 H 42 L 43 L (75-99) mg/dL Lactate Dehydrogenase (313-618) U/L C-Reactive Protein (<1.0) mg/dL Total Protein (6.3-8.2) g/dL Albumin (3.5-5.0) g/dL 04/29/21 04/29/21 04/29/21 Range/Units 07:46 08:14 08:14 RBC 3.77 L (4.10-5.20) X 10*6/uL MCV 105.3 H (80.0-97.0) fL MCH 32.6 H (27.0-32.0) pg MCHC 31.0 L (32.0-37.0) g/dL RDW 15.3 H (11.5-14.5) % Absolute Nucleated RBC 0.03 H (0.00-0.00) X 10*3/uL Immature Gran # 0.42 H (0.00-0.04) X 10*3/uL NRBC/100 WBC Diff 0.4 H (0.0-0.0) /100 WBCS D-Dimer (<0.60) mg/L FEU Chloride 109 H (98-107) mmol/L BUN 26 H (7-17) mg/dL Creatinine 0.51 L (0.52-1.04) mg/dL Glucose 140 H (74-99) mg/dL POC Glucose (mg/dL) 60 L (75-99) mg/dL Lactate Dehydrogenase 1012 H (313-618) U/L C-Reactive Protein 1.7 H (<1.0) mg/dL Total Protein 5.1 L (6.3-8.2) g/dL Albumin 2.7 L (3.5-5.0) g/dL 04/29/21 04/29/21 04/29/21 Range/Units 08:14 08:29 12:01 RBC (4.10-5.20) X 10*6/uL MCV (80.0-97.0) fL MCH (27.0-32.0) pg MCHC (32.0-37.0) g/dL RDW (11.5-14.5) % Absolute Nucleated RBC (0.00-0.00) X 10*3/uL Immature Gran # (0.00-0.04) X 10*3/uL NRBC/100 WBC Diff (0.0-0.0) /100 WBCS D-Dimer 11.26 H (<0.60) mg/L FEU Chloride (98-107) mmol/L BUN (7-17) mg/dL Creatinine (0.52-1.04) mg/dL Glucose (74-99) mg/dL POC Glucose (mg/dL) 159 H 143 H (75-99) mg/dL Lactate Dehydrogenase (313-618) U/L C-Reactive Protein (<1.0) mg/dL Total Protein (6.3-8.2) g/dL Albumin (3.5-5.0) g/dL 04/29/21 Range/Units 16:47 RBC (4.10-5.20) X 10*6/uL MCV (80.0-97.0) fL MCH (27.0-32.0) pg MCHC (32.0-37.0) g/dL RDW (11.5-14.5) % Absolute Nucleated RBC (0.00-0.00) X 10*3/uL Immature Gran # (0.00-0.04) X 10*3/uL NRBC/100 WBC Diff (0.0-0.0) /100 WBCS D-Dimer (<0.60) mg/L FEU Chloride (98-107) mmol/L BUN (7-17) mg/dL Creatinine (0.52-1.04) mg/dL Glucose (74-99) mg/dL POC Glucose (mg/dL) 283 H (75-99) mg/dL Lactate Dehydrogenase (313-618) U/L C-Reactive Protein (<1.0) mg/dL Total Protein (6.3-8.2) g/dL Albumin (3.5-5.0) g/dL Microbiology - Last 24 Hours (Table) 04/26/21 09:24 Blood Culture - Preliminary Blood No Growth after 72 hours 04/26/21 09:28 Blood Culture - Preliminary Blood No Growth after 72 hours 04/25/21 07:30 Blood Culture - Preliminary Blood No Growth after 96 hours 04/25/21 07:30 Blood Culture - Preliminary Blood No Growth after 96 hours 04/24/21 12:45 Blood Culture Gram Stain - Final Blood Blood Culture - Final Bacillus species Not Anthracis Coagulase Negative Staph Assessment and Plan Plan: Assessment: #1. Acute hypoxic respiratory failure second to COVID-19 pneumonia. Patient is currently on Airvo 55 L and FiO2 of 50%. Patient is on non-vaccinated adult. Patient has received monoclonal antibodies on an outpatient basis. Currently has a diffuse bilateral pulmonary infiltrates, she's been treated with Decadron 6 mg daily, and Eliquis #2. Acute COVID-19 related pneumonia #3. 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 Shortness of breath related to the above #5. History of chronic DVT and hypercoagulable state, maintained on Eliquis 5 mg twice a day #6. History of COPD on bronchodilators in the form of all due to on Symbicort #7. Diabetes mellitus type 2 #8. Acute kidney injury related to ATN and sepsis improving with IV fluids #9. History of hypothyroidism #10. Benign essential hypertension #11. Hypotension, likely hypovolemic in nature, recovered and the patient is currently off pressors #12. Degenerative joint disease and history of MRSA infection #13. Blood cultures positive for micrococcus species, and bacillus species not diaphoresis, with a follow-up cultures are showing no growth. Plan: Continue current medical treatment Continue current dose Decadron Multivitamins Continue oral anticoagulation in the form of Eliquis Continue inhaled bronchodilators Continue weaning FiO2 to keep O2 sats at or above 90% We'll continue to follow I performed a history & physical examination of the patient and discussed their management with my nurse practitioner, Catrina Peña. I reviewed the nurse practitioner's note and agree with the documented findings and plan of care. Lung sounds are positive for bilateral crackles throughout the lung coronado. The findings and the impression was discussed with the patient. I attest to the documentation by the nurse practitioner. Time with Patient: Less than 30
--- NOTE | 2021-04-29 18:21 | PN ---
PROGRESS NOTE DATE OF SERVICE: 04/30/2021 This 66-year-old woman who was admitted acute COVID-19 infection had significant hypoxia. The patient is on Airvo. The patient has extensive bilateral interstitial pneumonia. Multiple consultants are following the patient closely at this time. Cultures are showing blood pressure with ( ) species, ( ) and coagulase negative staph and micrococcus also. PAST MEDICAL HISTORY: Reviewed. REVIEW OF SYSTEMS: Cardiovascular system: No angina. Respiratory system: As mentioned earlier. GI: As mentioned earlier. : No dysuria. Nervous system: No numbness or weakness. CURRENT MEDICATIONS: Reviewed include Tylenol, Ventolin, vitamin C, Eliquis, Lipitor, Symbicort. Doses reviewed. PHYSICAL EXAMINATION: Patient is alert and oriented x3. Pulse 89, blood pressure 120/86 respirations 16, temperature 98 degrees, pulse ox 98% on room air. HEENT: Conjunctivae normal. Oral mucosa moist. NECK: No jugular venous distention. No lymph node enlargement. CARDIOVASCULAR: S1, S2, muffled. No S3, no S4, RESPIRATORY: Diminished breath sounds at the bases. A few scattered rhonchi. ABDOMEN: Soft, nontender. NERVOUS SYSTEM: No focal deficits. LABS: D-dimer is 7.26. Other labs are noted. ASSESSMENT: 1. Acute COVID-19 infection with acute COVID-19 bilateral interstitial pneumonia with acute hypoxic respiratory failure on Airvo. 2. Micrococcus and species noted and coagulase-negative Staph from the blood cultures. 3. Hyponatremia. 4. Bilateral leg lesions, possibly acute cellulitis. 5. Increased creatinine with acute renal failure with acute tubular necrosis, prerenal factors. 6. Elevated AST. 7. Elevated CRP. 8. Elevated inflammatory markers of COVID-19. 9. Hypoalbuminemia with mild protein-calorie malnutrition. 10.Increased MCV. 11.Diabetes mellitus, type 2. 12.History of deep vein thrombosis. 13.Hypertension. 14.Hyperlipidemia. 15.History of DJD. 16.Hypothyroidism. 17.History of MRSA. 18.History of hysterectomy. 19.FULL CODE. RECOMMENDATIONS: Recommend to continue current management and symptomatic treatment. Otherwise, at this time I would recommend close follow up with multiple consultants. Bronchodilators. Patient is on apixaban and IV steroids. We will discuss with Dr. Hanson regarding any need for antibiotics. The procalcitonin is normal. Further recommendations to follow. MMODL / IJN: [id number] / MTDEle
[2021-04-29 20:50] LABS: Glucose,Whole Blood 197 mg/dL (75-99)
--- NOTE | 2021-04-29 22:24 | PN ---
PROGRESS NOTE DATE OF SERVICE: 04/29/2021 REASON FOR FOLLOWUP: COVID-19 pneumonia. INTERVAL HISTORY: Patient is afebrile. The patient is breathing more comfortably. She is down to 50% FiO2. Patient denies any chest pain. No worsening cough or sputum production. No abdominal pain. No diarrhea. PHYSICAL EXAMINATION: Blood pressure 153/83 with a pulse of 80, temperature is 97.9. She is 90% on 50% FiO2. General description is a middle-aged female lying in bed in no distress. Respiratory system: Unlabored breathing, decreased intensity of breath sounds. No wheeze. Heart S1, S2. Regular rate and rhythm. Abdomen soft, no tenderness. LABS: Hemoglobin is 12.8, white count 8.52, creatinine 0.51. DIAGNOSTIC IMPRESSION/PLAN: 1. Patient with acute respiratory failure, secondary to COVID-19 pneumonia with slow clinical improvement. Patient to continue with the Eliquis, dexamethasone, zinc and ascorbic acid along with respiratory support and monitor clinical course closely. 2. Positive blood cultures with micrococcus bacillus contaminant. Repeat culture negative. No need for further workup for the same thing. MMODL / IJN: [id number] /
[2021-04-30] MEDS: SENNOSIDES-DOCUSATE SODIUM 1 EACH TAB PO SCH ×3 (01:38→21:23)
[2021-04-30] MEDS: LEVOTHYROXINE 137 MCG TAB PO SCH (05:48)
[2021-04-30] MEDS: NON FORMULARY DRUG (Canagliflozin [Invokana] 300 MG Tablet) PO SCH (09:02)
[2021-04-30 09:07] LABS: Glucose,Whole Blood 177 mg/dL (75-99)
[2021-04-30] MEDS: ATORVASTATIN 40 MG TAB PO SCH (09:29)
[2021-04-30] MEDS: FOLIC ACID 1 MG TAB PO SCH (09:29)
[2021-04-30] MEDS: INSULIN ASPART (NovoLOG) 100 UNIT/ML VIAL SQ SCH ×4 (09:29→21:19)
[2021-04-30] MEDS: DULoxetine HCL 60 MG CAPSULE.DR PO SCH (09:29)
[2021-04-30] MEDS: CYCLOBENZAPRINE 10 MG TAB PO SCH ×3 (09:29→22:22)
[2021-04-30] MEDS: CHOLECALCIFEROL 25 MCG (1000 IU) TABLET PO SCH (09:29)
[2021-04-30] MEDS: ASCORBIC ACID 500 MG TAB PO SCH (09:29)
[2021-04-30] MEDS: APIXABAN 5 MG TAB PO SCH ×2 (09:29→21:20)
[2021-04-30] MEDS: polyethylene glycoL 3350 17 GM POWD.PACK PO SCH (09:30)
[2021-04-30] MEDS: INSULIN DETEMIR (LEVEMIR) 100 UNIT/ML SYR SQ SCH ×2 (09:30→21:19)
[2021-04-30] MEDS: DEXAMETHASONE SOD PHOSPHATE 10 MG/ML 1 ML VIAL IVP SCH (09:30)
[2021-04-30] MEDS: ALBUTEROL HFA INHALER INHALATION SCH ×3 (09:35→21:23)
[2021-04-30] MEDS: SYMBICORT 160-4.5 MCG INHALER INHALATION PRN ×2 (09:35→21:24)
[2021-04-30 11:31] LABS: Glucose,Whole Blood 200 mg/dL (75-99)
[2021-04-30] MEDS: SODIUM CHLORIDE 0.9% 1,000 ML IV SCH (11:53)
[2021-04-30 14:18] VITALS: BMI 37.5
--- NOTE | 2021-04-30 15:47 | P.PN ---
Subjective Progress Note Date: 04/30/21 Principal diagnosis: Dyspnea On 04/29/2021 patient seen in follow-up on medical surgical floor. She is awake and alert, in no acute distress, she remains on Airvo at 55% FiO2 of 60%. She is up in the chair she was transferred out of intensive care unit yesterday. Stable overnight, no acute events, lung sounds reveal some diffuse crackles, she is working on incentive spirometer she says achieve an 1000. She remains on Symbicort and albuterol inhaled bronchodilators, she remains on Decadron 6 mg daily. Patient is on anticoagulation in the form of Eliquis for history of chronic DVT. Overall FiO2 has been cut back and patient has maintained stable O2 saturations without worsening dyspnea. His labs have been reviewed her white blood cell count is 8.5, hemoglobin is 12.3, platelet count is 268, d-dimer is 11.26, sodium is 141, potassium is 4.1, chloride is 109, BUN is 26 creatinine 0.51. Her LDH is 1012, CRP was 1.7, pro calcitonin level was improved and was down to 0.05 On April 302021, patient is seen in follow-up on medical surgical floor. She remains Airvo at 55 L and FiO2 50%, she looks like she is breathing more comfortably today. She is afebrile, hemodynamically she has been stable, she remains on Decadron 6 mg daily, remains on inhaled bronchodilators. She remains on home dose Eliquis 5 mg twice daily. Her d-dimer yesterday was 11.26. Patient denies any chest pain, no worsening cough or sputum production. No nausea vomiting or diarrhea. Objective - Vital Signs Vital signs: Vital Signs Temp 98.3 F 04/30/21 13:21 Pulse 101 H 04/30/21 13:21 Resp 14 04/30/21 13:21 BP 150/77 04/30/21 13:21 Pulse Ox 91 L 04/30/21 13:21 Intake & Output 04/29/21 04/30/21 04/30/21 18:59 06:59 18:59 Output Total 500 750 Balance -500 -750 Weight 99.3 kg Output: Urine 500 750 Other: Voiding Method Indwelling Catheter Bedside Commode # Voids 3 # Bowel Movements 0 - Exam GENERAL EXAM: Alert, very pleasant, 66-year-old white female, on Airvo with 55 L and FiO2 of 50% comfortable in no apparent distress. HEAD: Normocephalic/atraumatic. EYES: Normal reaction of pupils, equal size. Conjunctiva pink, sclera white. NOSE: Clear with pink turbinates. THROAT: No erythema or exudates. NECK: No masses, no JVD, no thyroid enlargement, no adenopathy. CHEST: No chest wall deformity. Symmetrical expansion. LUNGS: Equal air entry with bibasilar crackles CVS: Regular rate and rhythm, normal S1 and S2, no gallops, no murmurs, no rubs ABDOMEN: Soft, nontender. No hepatosplenomegaly, normal bowel sounds, no guarding or rigidity. EXTREMITIES: No clubbing, no edema, no cyanosis, 2+ pulses and upper and lower extremities. MUSCULOSKELETAL: Muscle strength and tone normal. SPINE: No scoliosis or deformity SKIN: No rashes CENTRAL NERVOUS SYSTEM: Alert and oriented -3. No focal deficits, tone is normal in all 4 extremities. PSYCHIATRIC: Alert and oriented -3. Appropriate affect. Intact judgment and insight. - Labs CBC & Chem 7: 04/29/21 08:14 04/29/21 08:14 Labs: Abnormal Lab Results - Last 24 Hours (Table) 04/29/21 04/29/21 04/30/21 Range/Units 16:47 20:44 09:06 POC Glucose (mg/dL) 283 H 197 H 177 H (75-99) mg/dL 04/30/21 Range/Units 11:29 POC Glucose (mg/dL) 200 H (75-99) mg/dL Microbiology - Last 24 Hours (Table) 04/26/21 09:24 Blood Culture - Preliminary Blood No Growth after 96 hours 04/26/21 09:28 Blood Culture - Preliminary Blood No Growth after 96 hours 04/25/21 07:30 Blood Culture - Preliminary Blood No Growth after 120 hours 04/25/21 07:30 Blood Culture - Preliminary Blood No Growth after 120 hours Assessment and Plan Plan: Assessment: #1. Acute hypoxic respiratory failure second to COVID-19 pneumonia. Patient is currently on Airvo 55 L and FiO2 of 50%. Patient is on non-vaccinated adult. Patient has received monoclonal antibodies on an outpatient basis. Currently has a diffuse bilateral pulmonary infiltrates, she's been treated with Decadron 6 mg daily, and Eliquis #2. Acute COVID-19 related pneumonia #3. 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 Shortness of breath related to the above #5. History of chronic DVT and hypercoagulable state, maintained on Eliquis 5 mg twice a day #6. History of COPD on bronchodilators in the form of all due to on Symbicort #7. Diabetes mellitus type 2 #8. Acute kidney injury related to ATN and sepsis improving with IV fluids #9. History of hypothyroidism #10. Benign essential hypertension #11. Hypotension, likely hypovolemic in nature, recovered and the patient is currently off pressors #12. Degenerative joint disease and history of MRSA infection #13. Blood cultures positive for micrococcus species, and bacillus species not diaphoresis, with a follow-up cultures are showing no growth. Plan: Breathing comfortably, although still requiring high flow oxygen per Airvo Continue current dose Decadron Multivitamins Continue oral anticoagulation in the form of Eliquis Continue inhaled bronchodilators Continue weaning FiO2 to keep O2 sats at or above 90% Encouraged the patient to lay on side to side Follow-up of inflammatory markers and a d-dimer tomorrow We'll continue to follow I performed a history & physical examination of the patient and discussed their management with my nurse practitioner, Catrina Peña. I reviewed the nurse practitioner's note and agree with the documented findings and plan of care. Lung sounds are positive for bilateral crackles throughout the lung coronado. The findings and the impression was discussed with the patient. I attest to the documentation by the nurse practitioner. Time with Patient: Less than 30
[2021-04-30 16:54] LABS: Glucose,Whole Blood 215 mg/dL (75-99)
--- NOTE | 2021-04-30 18:31 | PN ---
PROGRESS NOTE DATE OF SERVICE: 04/30/2021 This 66-year-old woman who was admitted with acute COVID-19 infection, acute bilateral interstitial pneumonia is being closely monitored. Patient is still on AIRVO. Patient is being closely monitored. Multiple consultants are following the patient. Blood sugar is also elevated. The white count is 8.5, hemoglobin 12.3 previously and inflammatory markers also elevated. No chest pain. No palpitations. No fever. PHYSICAL EXAMINATION: Alert and oriented x3. Pulse 91, blood pressure 150/80, respiration, temperature 98.2, pulse ox 92% on high-flow. HEENT: Conjunctivae normal. Oral mucosa moist. NECK: No jugular venous distention. No lymph node enlargement. CARDIOVASCULAR: S1, S2, muffled. No S3, no S4, RESPIRATORY: Diminished breath sounds at the bases. A few scattered rhonchi and crackles. ABDOMEN: Soft, nontender. NERVOUS SYSTEM: No focal deficits. LABS: Noted. ASSESSMENT: 1. Acute COVID-19 infection acute COVID-19 bilateral interstitial pneumonia with acute hypoxic respiratory failure, on AIRVO. 2. Micrococcus and species noted with coagulase-negative Staph from the blood culture. 3. Hyponatremia. 4. Bilateral leg lesions, possibly acute cellulitis. 5. Increased creatinine with acute renal failure with acute tubular necrosis with prerenal factors. 6. Increased AST. 7. Increased CRP. 8. Elevated inflammatory markers of COVID-19. 9. Hypoalbuminemia with mild protein-calorie malnutrition. 10.Increased MCV. 11.Diabetes mellitus, type 2. 12.History of deep vein thrombosis. 13.Hypertension. 14.Hyperlipidemia. 15.History of DJD. 16.Hypothyroidism. 17.History of MRSA. 18.History of hysterectomy. 19.FULL CODE. RECOMMENDATIONS: Recommend to continue current medications, continue symptomatic treatment. Otherwise continue with AIRVO. Continue the rest of medications. Repeat labs. Closely follow. Incentive spirometry. DVT prophylaxis. Continue to monitor blood sugars closely. Guarded prognosis because of the multiple complex medical issues and further recommendations to follow. MMODL / IJN: [id number] /
[2021-04-30 20:19] LABS: Glucose,Whole Blood 204 mg/dL (75-99)
[2021-04-30] MEDS: ARTIFICIAL TEARS-HYPROMELLOSE DROPS 15 ML BTL BOTH EYES PRN (21:20)
--- NOTE | 2021-04-30 23:33 | PN ---
PROGRESS NOTE DATE OF SERVICE: 04/30/2021 REASON FOR FOLLOWUP: COVID-19 pneumonia. INTERVAL HISTORY: The patient is afebrile. The patient is breathing comfortably. The patient is still on AIRVO requiring 50 percent FiO2. The patient denies having any chest pain. No worsening cough or sputum production. No abdominal pain. No diarrhea. PHYSICAL EXAMINATION: Blood pressure is 131/78, pulse of 100, temperature 98.1. She is 90% on 50% AIRVO. General description is a middle-aged female up in the bed in no distress. Respiratory system: Unlabored breathing. Decreased intensity of breath sounds. No wheeze. Heart S1, S2. Regular rate and rhythm. Abdomen soft, no tenderness. Extremities: No edema of the feet. LABS: No new labs have been obtained today. DIAGNOSTIC IMPRESSION/PLAN: 1. Patient with acute COVID-19 pneumonia in this patient with slow clinical response. Patient to continue with Eliquis, dexamethasone, zinc and ascorbic acid. 2. Positive blood culture multiple pathogen, likely contaminant. Repeat culture negative. Continue to monitor the patient closely off antibiotic. MMODL / IJN: [id number] /
[2021-05-01] MEDS: LEVOTHYROXINE 137 MCG TAB PO SCH (05:54)
[2021-05-01 07:41] LABS: Glucose,Whole Blood 72 mg/dL (75-99)
[2021-05-01] MEDS: INSULIN ASPART (NovoLOG) 100 UNIT/ML VIAL SQ SCH ×5 (08:01→21:23)
--- NOTE | 2021-05-01 08:04 | XR ---
EXAMINATION TYPE: XR chest 1V portable DATE OF EXAM: 05/01/2021 Comparison: 04/29/2021 Clinical History: 66-year-old female COVID Findings: ACF hardware and posterior cervical fusion hardware. Very low lung volumes. Heart size accentuated, l ikely upper limits of normal. Multifocal patchy bilateral airspace opacities relatively unchanged. Impression: Marked hypoventilatory changes probably related to body habitus. Extensive multifocal patchy bilatera l COVID pneumonia is unchanged.
[2021-05-01] MEDS: SYMBICORT 160-4.5 MCG INHALER INHALATION PRN ×2 (08:39→20:13)
[2021-05-01] MEDS: ALBUTEROL HFA INHALER INHALATION SCH ×3 (08:39→20:13)
[2021-05-01 09:26] LABS: African American GFR (CKD) 111.6 (60.0-200.0); Albumin 3.2 g/dL (3.8-4.9); Albumin/Globulin Ratio 1.68 (1.60-3.17); Anion Gap 9.4 mmol/L (10.00-18.00); Calcium 8.9 mg/dL (8.7-10.3); Carbon Dioxide 25.6 mmol/L (20.0-27.5); Globulin 1.9 g/dL (1.6-3.3); Non-African American GFR(CKD) 96.3 (60.0-200.0); Potassium 4.9 mmol/L (3.5-5.5); Total Bilirubin 0.6 mg/dL (0.30-1.20); Total Protein 5.1 g/dL (6.2-8.2)
[2021-05-01 10:09] LABS: HCT 38.8 % (37.2-46.3); HGB 12.3 g/dL (12.0-15.0); MCH 32.5 pg (27.0-32.0); MCHC 31.7 g/dL (32.0-37.0); MCV 102.6 fL (80.0-97.0); Mean Platelet Volume 10.4 fL (9.5-12.2); Platelet Count 387 X 10*3/uL (140-440); RBC 3.78 X 10*6/uL (4.10-5.20); RDW 15.5 % (11.5-14.5); WBC 13.22 X 10*3/uL (4.50-10.00)
[2021-05-01 10:10] LABS: Basophils # (M) 0 X 10*3/uL (0.00-0.10); Eosinophils # (M) 0.26 X 10*3/uL (0.04-0.35); Lymphocytes # (M) 1.59 X 10*3/uL (0.90-5.00); Monocytes # (M) 0.66 X 10*3/uL (0.20-1.00); Myelocytes % 5 % (0-0); Neutrophils # (M) 9.78 X 10*3/uL (2.00-8.90); Neutrophils % (M) 74 %; Promyelocytes % 2 % (0-0)
[2021-05-01] MEDS: SENNOSIDES-DOCUSATE SODIUM 1 EACH TAB PO SCH ×2 (10:19→21:23)
[2021-05-01] MEDS: polyethylene glycoL 3350 17 GM POWD.PACK PO SCH (10:19)
[2021-05-01] MEDS: INSULIN DETEMIR (LEVEMIR) 100 UNIT/ML SYR SQ SCH ×2 (10:23→21:23)
[2021-05-01] MEDS: DULoxetine HCL 60 MG CAPSULE.DR PO SCH (10:24)
[2021-05-01] MEDS: FOLIC ACID 1 MG TAB PO SCH (10:24)
[2021-05-01] MEDS: ATORVASTATIN 40 MG TAB PO SCH (10:24)
[2021-05-01] MEDS: CHOLECALCIFEROL 25 MCG (1000 IU) TABLET PO SCH (10:24)
[2021-05-01] MEDS: ASCORBIC ACID 500 MG TAB PO SCH (10:24)
[2021-05-01] MEDS: DEXAMETHASONE SOD PHOSPHATE 10 MG/ML 1 ML VIAL IVP SCH (10:24)
[2021-05-01] MEDS: APIXABAN 5 MG TAB PO SCH ×2 (10:25→21:23)
[2021-05-01] MEDS: NON FORMULARY DRUG (Canagliflozin [Invokana] 300 MG Tablet) PO SCH (10:25)
[2021-05-01] MEDS: CYCLOBENZAPRINE 10 MG TAB PO SCH ×3 (10:25→21:23)
[2021-05-01] MEDS: SODIUM CHLORIDE 0.9% 1,000 ML IV SCH (10:26)
[2021-05-01 11:38] LABS: Glucose,Whole Blood 185 mg/dL (75-99)
--- NOTE | 2021-05-01 12:49 | US ---
EXAMINATION TYPE: US venous doppler duplex LE BI DATE OF EXAM: 05/01/2021 12:33 PM COMPARISON: NONE CLINICAL HISTORY: 66-year-old female with swelling, rule out DVT. SIDE PERFORMED: Bilateral TECHNIQUE: The lower extremity deep venous system is examined utilizing real time linear array sonog mariela with graded compression, doppler sonography and color-flow sonography. FINDINGS: VESSELS IMAGED: Common Femoral Vein Deep Femoral Vein Greater Saphenous Vein * Femoral Vein Popliteal Vein Small Saphenous Vein * Proximal Calf Veins (* superficial vessels) Health Safety Engineer notes: Morbidly obese patient, whom technologist had trouble reaching in the bed. Right Leg: Appears negative for DVT, technically difficult study. Left Leg: Appears negative for DVT, technically difficult study. IMPRESSION: Technically challenging exam due to body habitus. No DVT visualized in the bilateral lower extremitie s imaged from the groin to the upper calves.
--- NOTE | 2021-05-01 14:20 | P.PN ---
Subjective Progress Note Date: 05/01/21 Principal diagnosis: Dyspnea On 04/29/2021 patient seen in follow-up on medical surgical floor. She is awake and alert, in no acute distress, she remains on Airvo at 55% FiO2 of 60%. She is up in the chair she was transferred out of intensive care unit yesterday. Stable overnight, no acute events, lung sounds reveal some diffuse crackles, she is working on incentive spirometer she says achieve an 1000. She remains on Symbicort and albuterol inhaled bronchodilators, she remains on Decadron 6 mg daily. Patient is on anticoagulation in the form of Eliquis for history of chronic DVT. Overall FiO2 has been cut back and patient has maintained stable O2 saturations without worsening dyspnea. His labs have been reviewed her white blood cell count is 8.5, hemoglobin is 12.3, platelet count is 268, d-dimer is 11.26, sodium is 141, potassium is 4.1, chloride is 109, BUN is 26 creatinine 0.51. Her LDH is 1012, CRP was 1.7, pro calcitonin level was improved and was down to 0.05 On April 302021, patient is seen in follow-up on medical surgical floor. She remains Airvo at 55 L and FiO2 50%, she looks like she is breathing more comfortably today. She is afebrile, hemodynamically she has been stable, she remains on Decadron 6 mg daily, remains on inhaled bronchodilators. She remains on home dose Eliquis 5 mg twice daily. Her d-dimer yesterday was 11.26. Patient denies any chest pain, no worsening cough or sputum production. No nausea vomiting or diarrhea. On 05/01/2021 patient seen in follow-up on medical surgical floor. She remains on Airvo at 15 L and FiO2 of 50%, and her O2 saturations are marginal at 88-89% but hemodynamically patient appears to be breathing comfortably, not tachypneic, not using accessory muscles of breathing, she is up in the chair, she is working with physical therapy, she has been get not to the commode, she has been using a walker, tolerates activity fairly well, no chest discomfort, she's been afebrile, vital signs stable, patient remains on Symbicort, Ventolin inhaler, she remains on Decadron 6 mg daily and she is on Eliquis 5 mg twice daily. Today's d-dimer slightly improved compared to yesterday and is down to 10.5, lower extremity Dopplers were completed, this was a technically difficult study but both legs appear to be negative for DVT. Objective - Vital Signs Vital signs: Vital Signs Temp 98.4 F 05/01/21 09:48 Pulse 105 H 05/01/21 09:48 Resp 18 05/01/21 09:48 BP 110/59 05/01/21 09:48 Pulse Ox 89 L 05/01/21 09:48 Intake & Output 04/30/21 05/01/21 05/01/21 18:59 06:59 18:59 Weight 99.3 kg Other: # Voids 3 1 # Bowel Movements 1 - Exam GENERAL EXAM: Alert, very pleasant, 66-year-old white female, on Airvo with 50 L and FiO2 of 50% comfortable in no apparent distress. HEAD: Normocephalic/atraumatic. EYES: Normal reaction of pupils, equal size. Conjunctiva pink, sclera white. NOSE: Clear with pink turbinates. THROAT: No erythema or exudates. NECK: No masses, no JVD, no thyroid enlargement, no adenopathy. CHEST: No chest wall deformity. Symmetrical expansion. LUNGS: Equal air entry with bibasilar crackles CVS: Regular rate and rhythm, normal S1 and S2, no gallops, no murmurs, no rubs ABDOMEN: Soft, nontender. No hepatosplenomegaly, normal bowel sounds, no guarding or rigidity. EXTREMITIES: No clubbing, no edema, no cyanosis, 2+ pulses and upper and lower extremities. MUSCULOSKELETAL: Muscle strength and tone normal. SPINE: No scoliosis or deformity SKIN: No rashes CENTRAL NERVOUS SYSTEM: Alert and oriented -3. No focal deficits, tone is normal in all 4 extremities. PSYCHIATRIC: Alert and oriented -3. Appropriate affect. Intact judgment and insight. - Labs CBC & Chem 7: 05/01/21 04:51 05/01/21 04:51 Labs: Abnormal Lab Results - Last 24 Hours (Table) 04/30/21 04/30/21 05/01/21 Range/Units 16:53 20:18 04:51 WBC 13.22 H (4.50-10.00) X 10*3/uL RBC 3.78 L (4.10-5.20) X 10*6/uL MCV 102.6 H (80.0-97.0) fL MCH 32.5 H (27.0-32.0) pg MCHC 31.7 L (32.0-37.0) g/dL RDW 15.5 H (11.5-14.5) % Absolute Nucleated RBC 0.06 H (0.00-0.00) X 10*3/uL Myelocytes % 5 H (0-0) % Promyelocytes % 2 H (0-0) % Neutrophils # (Manual) 9.78 H (2.00-8.90) X 10*3/uL NRBC/100 WBC Diff 0.5 H (0.0-0.0) /100 WBCS D-Dimer (<0.60) mg/L FEU Anion Gap (10.00-18.00) mmol/L BUN/Creatinine Ratio (12.00-20.00) Ratio POC Glucose (mg/dL) 215 H 204 H (75-99) mg/dL Total Protein (6.2-8.2) g/dL Albumin (3.8-4.9) g/dL 05/01/21 05/01/21 05/01/21 Range/Units 04:51 04:51 07:41 WBC (4.50-10.00) X 10*3/uL RBC (4.10-5.20) X 10*6/uL MCV (80.0-97.0) fL MCH (27.0-32.0) pg MCHC (32.0-37.0) g/dL RDW (11.5-14.5) % Absolute Nucleated RBC (0.00-0.00) X 10*3/uL Myelocytes % (0-0) % Promyelocytes % (0-0) % Neutrophils # (Manual) (2.00-8.90) X 10*3/uL NRBC/100 WBC Diff (0.0-0.0) /100 WBCS D-Dimer 10.54 H (<0.60) mg/L FEU Anion Gap 9.40 L (10.00-18.00) mmol/L BUN/Creatinine Ratio 35.00 H (12.00-20.00) Ratio POC Glucose (mg/dL) 72 L (75-99) mg/dL Total Protein 5.1 L (6.2-8.2) g/dL Albumin 3.2 L (3.8-4.9) g/dL 05/01/21 Range/Units 11:36 WBC (4.50-10.00) X 10*3/uL RBC (4.10-5.20) X 10*6/uL MCV (80.0-97.0) fL MCH (27.0-32.0) pg MCHC (32.0-37.0) g/dL RDW (11.5-14.5) % Absolute Nucleated RBC (0.00-0.00) X 10*3/uL Myelocytes % (0-0) % Promyelocytes % (0-0) % Neutrophils # (Manual) (2.00-8.90) X 10*3/uL NRBC/100 WBC Diff (0.0-0.0) /100 WBCS D-Dimer (<0.60) mg/L FEU Anion Gap (10.00-18.00) mmol/L BUN/Creatinine Ratio (12.00-20.00) Ratio POC Glucose (mg/dL) 185 H (75-99) mg/dL Total Protein (6.2-8.2) g/dL Albumin (3.8-4.9) g/dL Microbiology - Last 24 Hours (Table) 04/26/21 09:24 Blood Culture - Preliminary Blood No Growth after 120 hours 04/26/21 09:28 Blood Culture - Preliminary Blood No Growth after 120 hours 04/25/21 07:30 Blood Culture - Final Blood No Growth after 144 hours 04/25/21 07:30 Blood Culture - Final Blood No Growth after 144 hours Assessment and Plan Plan: Assessment: #1. Acute hypoxic respiratory failure second to COVID-19 pneumonia. Patient is currently on Airvo 50 L and FiO2 of 50%. Patient is on non-vaccinated adult. Patient has received monoclonal antibodies on an outpatient basis. Currently has a diffuse bilateral pulmonary infiltrates, she's been treated with Decadron 6 mg daily, and Eliquis #2. Acute COVID-19 related pneumonia #3. 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 Shortness of breath related to the above #5. History of chronic DVT and hypercoagulable state, maintained on Eliquis 5 mg twice a day #6. History of COPD on bronchodilators in the form of all due to on Symbicort #7. Diabetes mellitus type 2 #8. Acute kidney injury related to ATN and sepsis improving with IV fluids #9. History of hypothyroidism #10. Benign essential hypertension #11. Hypotension, likely hypovolemic in nature, recovered and the patient is currently off pressors #12. Degenerative joint disease and history of MRSA infection #13. Blood cultures positive for micrococcus species, and bacillus species not diaphoresis, with a follow-up cultures are showing no growth. Plan: Patient continues to require Airvo at 50 l/min and FiO2 of 50% Titrate FiO2 to keep O2 sats ration is improving on above 90% Denies worsening dyspnea or cough Continue current treatment with Decadron, Patient continues on Eliquis 5 mg twice daily Lower extremity Dopplers were negative for DVT D-dimer is actually improving on today's labs We'll obtain CT chest when it is safe with the patient to travel down stairs and when she is on less oxygen Doubt underlying PE in view of maintenance dose Eliquis We'll continue to follow her clinical course Clinically patient is fairly stable, She is participating with therapy, She is breathing comfortably We'll continue to follow her clinical course and make further recommendations I performed a history & physical examination of the patient and discussed their management with my nurse practitioner, Catrina Peña. I reviewed the nurse practitioner's note and agree with the documented findings and plan of care. Lung sounds are positive for bilateral crackles throughout the lung coronado. The findings and the impression was discussed with the patient. I attest to the doc umentation by the nurse practitioner. Time with Patient: Less than 30
[2021-05-01 17:03] LABS: Glucose,Whole Blood 283 mg/dL (75-99)
--- NOTE | 2021-05-01 17:13 | PN ---
PROGRESS NOTE DATE OF SERVICE: 05/01/2021 This 66-year-old woman was admitted with Covid 19 pneumonia, still on AIRVO. The patient being closely monitored at this time. The patient's D-dimer is elevated up to 10.5. Ultrasound of the DVT was done which showed negative for DVT. The most recent chest x-ray which was reviewed personally by me showed bilateral . Pulmonary is following the patient closely. Patient complains of tiredness and weakness at this time. PAST MEDICAL HISTORY: Reviewed. REVIEW OF SYSTEM: Cardiovascular: No angina or palpitations. Respiration as mentioned earlier. GI as mentioned. Nervous system: No numbness or weakness. CURRENT MEDICATIONS: Reviewed and include: [place], Ventolin, Eliquis, vitamin C, Symbicort, cholecalciferol, Flexeril. Doses reviewed. PHYSICAL EXAMINATION: The patient is alert and oriented times three. Pulse 116, blood pressure ntd respiration 18, temperature 98.1, pulse ox 89 percent on AIRVO. HEENT: Conjunctivae normal. Neck: No JVD. Cardiovascular: S1, S2 muffled. Respiration: Breath sounds diminished in the bases. Scattered rhonchi and crackles. Abdomen: Soft, nontender. Legs: No edema. No swelling. Nervous system: No focal deficits. LABS: WBC 13.7, hemoglobin 12.3. Other labs are noted. ASSESSMENT: 1. Acute Covid 19 infection with acute Covid 19 bilateral interstitial pneumonia with acute hypoxic respiratory failure on AIRVO. 2. Micrococcus species noted and coagulase-negative Staph from the blood culture. 3. Hyponatremia. 4. Bilateral leg lesions possibly acute cellulitis, left more than the right. 5. Increased creatinine with acute renal failure, acute tubular necrosis with prerenal factors. I. 6. Increased AST. 7. Increased CRP. 8. Elevated inflammatory markers of Covid 19. 9. Elevated D-dimer with no evidence of pulmonary embolism or deep vein thrombosis. 10.Hypoalbuminemia with mild protein-calorie malnutrition. 11.Increased MCV. 12.Diabetes mellitus, type 2. 13.History of deep vein thrombosis. 14.Hypertension. 15.History of degenerative joint disease. 16.Hyperlipidemia. 17.Hypothyroidism. 18.History of MRSA. 19.History of hysterectomy. 20.FULL CODE. RECOMMENDATIONS AND DISCUSSION: Recommend to continue current medications, management and symptomatic treatment. Otherwise, at this time, I would also recommend a CT angio once the patient is stabilized. Otherwise, the prognosis is extremely guarded because of multiple complex medical issues. Continue the anticoagulation currently and prognosis guarded. Further recommendations to follow. MMTATIANAL / IJN: [id number] / MTDD
[2021-05-01 21:13] LABS: Glucose,Whole Blood 317 mg/dL (75-99)
[2021-05-01] MEDS: ARTIFICIAL TEARS-HYPROMELLOSE DROPS 15 ML BTL BOTH EYES PRN (21:24)
--- NOTE | 2021-05-01 23:10 | PN ---
PROGRESS NOTE DATE OF SERVICE: 05/01/2021 REASON FOR FOLLOWUP: COVID-19 pneumonia. The patient is afebrile. The patient is breathing slightly comfortably. She is still requiring 50% FiO2 on the AIRVO. Patient denies any chest pain. No worsening cough or sputum production. No abdominal pain. No diarrhea. PHYSICAL EXAMINATION: Blood pressure 131/72 with a pulse of 107, temperature 98.2. She is 91% on 50% FiO2. General description is a middle-aged female up in the chair in no distress. Respiratory system: Unlabored breathing, coarse breath sounds bilaterally. No wheeze. Heart S1, S2. Regular rate and rhythm. Abdomen soft, no tenderness. LABS: No new labs have been obtained today. DIAGNOSTIC IMPRESSION AND PLAN: 1. Patient with acute respiratory failure secondary to Covid 19 pneumonia in this patient with slow clinical improvement. Patient to continue with Levaquin, dexamethasone, zinc and ascorbic acid along with respiratory support. 2. Positive blood culture likely skin contamination. No need for systematic antibiotic therapy. MMODL / IJN: [id number] /
[2021-05-02] MEDS: LEVOTHYROXINE 137 MCG TAB PO SCH (06:21)
[2021-05-02 07:16] LABS: Glucose,Whole Blood 141 mg/dL (75-99)
[2021-05-02] MEDS: polyethylene glycoL 3350 17 GM POWD.PACK PO SCH (07:29)
[2021-05-02] MEDS: NON FORMULARY DRUG (Canagliflozin [Invokana] 300 MG Tablet) PO SCH (07:29)
[2021-05-02] MEDS: SENNOSIDES-DOCUSATE SODIUM 1 EACH TAB PO SCH ×2 (07:30→21:18)
[2021-05-02] MEDS: INSULIN ASPART (NovoLOG) 100 UNIT/ML VIAL SQ SCH ×4 (07:30→21:18)
--- NOTE | 2021-05-02 08:14 | ECHOF ---
Referral Reason:eval tachycardia. MEASUREMENTS -------- HEIGHT: 157.5 cm WEIGHT: 99.8 kg BP: FINDINGS -------- Sinus rhythm. Limited Echo due to Covid 19 exposure. Overall left ventricular systolic function is low-normal with, an EF between 50 - 55 %. Echo free space may represent effusion or a pericardial fat pad. CONCLUSIONS -------- 1. Limited Echo due to Covid 19 exposure. 2. Echo free space may represent effusion or a pericardial fat pad. ECONOMIC GEOGRAPHER: Lyla Reza RDCS
[2021-05-02] MEDS: ASCORBIC ACID 500 MG TAB PO SCH (09:09)
[2021-05-02] MEDS: APIXABAN 5 MG TAB PO SCH ×2 (09:09→21:18)
[2021-05-02] MEDS: ATORVASTATIN 40 MG TAB PO SCH (09:09)
[2021-05-02] MEDS: DULoxetine HCL 60 MG CAPSULE.DR PO SCH (09:09)
[2021-05-02] MEDS: CHOLECALCIFEROL 25 MCG (1000 IU) TABLET PO SCH (09:10)
[2021-05-02] MEDS: FOLIC ACID 1 MG TAB PO SCH (09:10)
[2021-05-02] MEDS: CYCLOBENZAPRINE 10 MG TAB PO SCH ×3 (09:10→21:18)
[2021-05-02] MEDS: DEXAMETHASONE SOD PHOSPHATE 10 MG/ML 1 ML VIAL IVP SCH (09:10)
[2021-05-02] MEDS: INSULIN DETEMIR (LEVEMIR) 100 UNIT/ML SYR SQ SCH ×2 (09:24→21:18)
[2021-05-02] MEDS: ALBUTEROL HFA INHALER INHALATION SCH ×3 (09:28→20:40)
[2021-05-02] MEDS: SYMBICORT 160-4.5 MCG INHALER INHALATION PRN ×2 (09:28→20:40)
[2021-05-02 11:38] LABS: Glucose,Whole Blood 123 mg/dL (75-99)
[2021-05-02] MEDS: SODIUM CHLORIDE 0.9% 1,000 ML IV SCH (12:09)
--- NOTE | 2021-05-02 14:48 | P.PN ---
Subjective Progress Note Date: 05/02/21 Principal diagnosis: Dyspnea On 04/29/2021 patient seen in follow-up on medical surgical floor. She is awake and alert, in no acute distress, she remains on Airvo at 55% FiO2 of 60%. She is up in the chair she was transferred out of intensive care unit yesterday. Stable overnight, no acute events, lung sounds reveal some diffuse crackles, she is working on incentive spirometer she says achieve an 1000. She remains on Symbicort and albuterol inhaled bronchodilators, she remains on Decadron 6 mg daily. Patient is on anticoagulation in the form of Eliquis for history of chronic DVT. Overall FiO2 has been cut back and patient has maintained stable O2 saturations without worsening dyspnea. His labs have been reviewed her white blood cell count is 8.5, hemoglobin is 12.3, platelet count is 268, d-dimer is 11.26, sodium is 141, potassium is 4.1, chloride is 109, BUN is 26 creatinine 0.51. Her LDH is 1012, CRP was 1.7, pro calcitonin level was improved and was down to 0.05 On April 302021, patient is seen in follow-up on medical surgical floor. She remains Airvo at 55 L and FiO2 50%, she looks like she is breathing more comfortably today. She is afebrile, hemodynamically she has been stable, she remains on Decadron 6 mg daily, remains on inhaled bronchodilators. She remains on home dose Eliquis 5 mg twice daily. Her d-dimer yesterday was 11.26. Patient denies any chest pain, no worsening cough or sputum production. No nausea vomiting or diarrhea. On 05/01/2021 patient seen in follow-up on medical surgical floor. She remains on Airvo at 15 L and FiO2 of 50%, and her O2 saturations are marginal at 88-89% but hemodynamically patient appears to be breathing comfortably, not tachypneic, not using accessory muscles of breathing, she is up in the chair, she is working with physical therapy, she has been get not to the commode, she has been using a walker, tolerates activity fairly well, no chest discomfort, she's been afebrile, vital signs stable, patient remains on Symbicort, Ventolin inhaler, she remains on Decadron 6 mg daily and she is on Eliquis 5 mg twice daily. Today's d-dimer slightly improved compared to yesterday and is down to 10.5, lower extremity Dopplers were completed, this was a technically difficult study but both legs appear to be negative for DVT. On 05/02/2021 patient seen in follow-up on medical surgical floor. She is currently on Airvo at 40 L and FiO2 of 53%, and her pulse ox is 92%, looks very comfortable, does not appear to be in any acute distress, she continues on Decadron 6 mg daily, she continues on Eliquis 5 mg twice daily, Symbicort, she is on multivitamins, lower extremity Dopplers revealed no evidence of DVT. Limited echo was completed for the reason of tachycardia, and her EF was low normal at 50-55%. Limited cough, no complaints of chest discomfort, vital signs have been stable, patient has been afebrile. Patient is sitting up in the recliner, nursing staff is helping her with her bath, appetite is fair. Objective - Vital Signs Vital signs: Vital Signs Temp 98.9 F 05/02/21 14:10 Pulse 110 H 05/02/21 14:10 Resp 16 05/02/21 14:10 BP 129/71 05/02/21 14:10 Pulse Ox 91 L 05/02/21 14:10 Intake & Output 05/01/21 05/02/21 05/02/21 18:59 06:59 18:59 Output Total 200 Balance -200 Output: Urine 200 Other: Voiding Method Bedside Commode # Voids 3 3 - Exam GENERAL EXAM: Alert, very pleasant, 66-year-old white female, on Airvo with 40 L and FiO2 of 53% comfortable in no apparent distress. HEAD: Normocephalic/atraumatic. EYES: Normal reaction of pupils, equal size. Conjunctiva pink, sclera white. NOSE: Clear with pink turbinates. THROAT: No erythema or exudates. NECK: No masses, no JVD, no thyroid enlargement, no adenopathy. CHEST: No chest wall deformity. Symmetrical expansion. LUNGS: Equal air entry with bibasilar crackles CVS: Regular rate and rhythm, normal S1 and S2, no gallops, no murmurs, no rubs ABDOMEN: Soft, nontender. No hepatosplenomegaly, normal bowel sounds, no guarding or rigidity. EXTREMITIES: No clubbing, no edema, no cyanosis, 2+ pulses and upper and lower extremities. MUSCULOSKELETAL: Muscle strength and tone normal. SPINE: No scoliosis or deformity SKIN: No rashes CENTRAL NERVOUS SYSTEM: Alert and oriented -3. No focal deficits, tone is normal in all 4 extremities. PSYCHIATRIC: Alert and oriented -3. Appropriate affect. Intact judgment and insight. - Labs CBC & Chem 7: 05/01/21 04:51 05/01/21 04:51 Labs: Abnormal Lab Results - Last 24 Hours (Table) 05/01/21 05/01/21 05/02/21 Range/Units 17:02 21:11 07:14 POC Glucose (mg/dL) 283 H 317 H 141 H (75-99) mg/dL 05/02/21 Range/Units 11:34 POC Glucose (mg/dL) 123 H (75-99) mg/dL Microbiology - Last 24 Hours (Table) 04/26/21 09:24 Blood Culture - Final Blood No Growth after 144 hours 04/26/21 09:28 Blood Culture - Final Blood No Growth after 144 hours 04/25/21 07:30 Blood Culture - Final Blood No Growth after 144 hours 04/25/21 07:30 Blood Culture - Final Blood No Growth after 144 hours Assessment and Plan Plan: Assessment: #1. Acute hypoxic respiratory failure second to COVID-19 pneumonia. Patient is currently on Airvo 40 L and FiO2 of 53%. Patient is on non-vaccinated adult. Patient has received monoclonal antibodies on an outpatient basis. Currently has a diffuse bilateral pulmonary infiltrates, she's been treated with Decadron 6 mg daily, and Eliquis #2. Acute COVID-19 related pneumonia #3. 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 Shortness of breath related to the above #5. History of chronic DVT and hypercoagulable state, maintained on Eliquis 5 mg twice a day #6. History of COPD on bronchodilators in the form of all due to on Symbicort #7. Diabetes mellitus type 2 #8. Acute kidney injury related to ATN and sepsis improving with IV fluids #9. History of hypothyroidism #10. Benign essential hypertension #11. Hypotension, likely hypovolemic in nature, recovered and the patient is currently off pressors #12. Degenerative joint disease and history of MRSA infection #13. Blood cultures positive for micrococcus species, and bacillus species not diaphoresis, with a follow-up cultures are showing no growth. Plan: Patient continues to require Airvo, however the flow is down to 40 l/min and FiO2 of 53% Breathing comfortably No acute events Vital signs are stable Continue Eliquis 5 mg twice daily Continue Decadron, multivitamins Provide incentive spirometer Overall seems to be stable, and improving Labs have been reviewed, we will obtain follow-up labs tomorrow D-dimer, LDH, CRP, and basic labs including CBC and BMP We'll continue to follow her clinical course I performed a history & physical examination of the patient and discussed their management with my nurse practitioner, Catrina Peña. I reviewed the nurse practitioner's note and agree with the documented findings and plan of care. Lung sounds are positive for bilateral crackles throughout the lung coronado. The findings and the impression was discussed with the patient. I attest to the documentation by the nurse practitioner. Time with Patient: Less than 30
--- NOTE | 2021-05-02 15:57 | CDI ---
Documentation Clarification Form Date: 05/02/2021 03:17:25 PM From: Rosenda Yang RN, CCDS Admit Date: 04/24/2021 05:28:00 PM Patient Name: Bethany Carrillo Visit Number: [id number] Discharge Date: ATTENTION: The Clinical Documentation Specialists (CDI) and [facility] Coding Staff appreciate your assistance in clarifying documentation. Please respond to the clarification below the line at the bottom and electronically sign. The CDI & [facility] Coding staff will review the response and follow-up if needed. Please note: Queries are made part of the Legal Health Record. If you have any questions, please contact the author of this message via ITS. Dr. Marge Colby The patient presented with the following clinical indicators. Additional clarification regarding the etiology/cause of the clinical indicators is requested. 04/25 Pulmonary consult: Acute hypoxic respiratory failure secondary to COVID-19 pneumonia/ Acute kidney injury, secondary to acute tubular necrosis hypotension and Sepsis is strongly suspected. 04/27 ID: Patient with positive blood cultures with bacillus and micrococcus likely contaminant. Vancomycin to be discontinued, History/Risk Factors: Diabetes mellitus DVT, Hypertension, Hyperlipidemia Clinical Indicators: 65-year-old female present with shortness of breath, COVID- 19 positive. 05/25 WBC: 5.7, BUN 67, CR 1.78 04/24 CXR diffuse bilateral infiltrates consistent with COVID-19 pneumonia 05/25 Lactic acid: 1.1, C-Reactive Protein 22.8, Procalcitonin 0.86 05/25 Blood cultures: Bacillus species Not Anthracis, Coagulase Negative Staph 04/25 Blood cultures: No growth after 144 hours 04/24 Vital signs: 95/42 93 28 98.1 85 % on 15 % Non-Rebreather, 84/50 90 26 95 % on FIO2 60 High Flow; 70/52 21 88 Treatment: ICU/Telemetry monitoring (04/28 transfer to [facility]) Monitor O2 Sat's (titrate) Norepinephine @0.03 mcg/kg per min (DC 04/25) .9NS 1,000 IV BOLUS X2 Vancomycin HCL 1,500 MG IVPB Once (04/25) then 1,750 MG IVPB Q 12 HRS 04/26 PTD) Decadron 6 MG IVP Daily In your professional opinion, please clarify sepsis: [ ] Sepsis POA, specify underlying cause if known [ ] Sepsis ruled out [ ] Severe Sepsis with organ failure [ ] Septic Shock [ ] SIRS, without underlying infectious process [ ] Other, please specify [ ] Unable to determine SIRS Criteria: 2 or more of the following may indicate SIRS -Temperature < 96.8F (36C) or > 101.0F (38.3C) -Heart Rate > 90 bpm -Respiratory Rate > 20 breaths/min or PaCO2 < 32 mmHg -White Blood Cell Count > 12,000 or < 4,000 cells/mm3 or > 10% bands (Template Last Reviewed: May 2020) Sepsis ruled out MTDD
[2021-05-02 16:55] LABS: Glucose,Whole Blood 217 mg/dL (75-99)
--- NOTE | 2021-05-02 17:51 | PN ---
PROGRESS NOTE DATE OF SERVICE: 05/02/2021 This 66-year-old woman who was admitted with acute COVID-19 infection with acute COVID- 19 bilateral interstitial pneumonia with acute hypoxia with respiratory failure is being closely monitored. No chest pain. No palpitations. No fever. The patient is on AIRVO at this time. The patient is still hypoxic. Multiple consultants are following the patient closely. PAST MEDICAL HISTORY: Reviewed. REVIEW OF SYSTEMS: Cardiovascular system: No angina. Respiratory system: As mentioned earlier. GI: As mentioned earlier. : No dysuria. Nervous system: No numbness or weakness. CURRENT MEDICATIONS: Reviewed include [place], Ventolin, Eliquis, vitamin C, Lipitor, Symbicort, cholecalciferol. PHYSICAL EXAMINATION: Patient is alert and oriented x3. Pulse is 110, blood pressure 129/70, respirations 16, temperature 98.9, pulse ox 97% on AIRVO. HEENT: Conjunctivae normal. Oral mucosa moist. NECK: No jugular venous distention. No lymph node enlargement. CARDIOVASCULAR: S1, S2, muffled. No S3, no S4, RESPIRATORY: Diminished breath sounds at the bases. A few scattered rhonchi and crackles. ABDOMEN: Soft, nontender. LEGS: No edema, no swelling. NERVOUS SYSTEM: No focal deficits. LAB: WBC 13.8, hemoglobin 12.3. ASSESSMENT: 1. Acute COVID-19 infection with acute COVID-19 bilateral interstitial pneumonia with acute hypoxic respiratory failure on AIRVO. 2. Micrococcus species noted and coagulase-negative Staph from the blood culture. 3. Hyponatremia. 4. Bilateral leg lesions, possibly acute cellulitis, left more than the right, on antibiotics. 5. Increased creatinine with acute renal failure with acute tubular necrosis with prerenal factors. 6. Increased AST. 7. Increased CRP. 8. Elevated inflammatory markers of COVID-19. 9. Elevated D-dimer with no evidence of pulmonary embolism or deep vein thrombosis. 10.Hypoalbuminemia with mild protein-calorie malnutrition. 11.Increased MCV. 12.Diabetes mellitus, type 2. 13.History of deep vein thrombosis. 14.Hypertension. 15.History of degenerative joint disease. 16.Hyperlipidemia. 17.Hypothyroidism. 18.History of MRSA. 19.History of hysterectomy. 20.FULL CODE. RECOMMENDATIONS: Recommend to continue current medications, continue symptomatic treatment. Otherwise, continue with Lovenox and dexamethasone. The most recent multiple blood cultures are negative. Otherwise, continue to monitor and try to wean off oxygen per Pulmonary. Guarded prognosis. Further recommendations to follow. MMODL / IJN: [id number] /
[2021-05-02 20:15] LABS: Glucose,Whole Blood 287 mg/dL (75-99)
[2021-05-02] MEDS: HYDROcodone/APAP 10-325MG 1 EACH TAB PO PRN (21:17)
--- NOTE | 2021-05-03 | PN ---
PROGRESS NOTE DATE OF SERVICE: 05/02/2021 REASON FOR FOLLOWUP: COVID-19 pneumonia. INTERVAL HISTORY: The patient is afebrile. The patient is breathing comfortably. The patient denies any chest pain. No worsening cough or sputum production. No abdominal pain, no diarrhea. PHYSICAL EXAMINATION: Blood pressure is 129/71 with a pulse of 89, temperature 98.9. She is 91% on AIRVO. General description is a middle-aged female up in the chair in no distress. Respiratory system: Unlabored breathing, decreased breath sounds in the base, no wheeze. Heart S1, S2. Regular rate and rhythm. Abdomen soft, no tenderness. Extremities: No edema of the feet. LABS: No new labs have been obtained today. DIAGNOSTIC IMPRESSION AND PLAN: Patient with acute COVID-19 pneumonia in this patient with slow clinical response. Patient is currently on Eliquis, dexamethasone, zinc and ascorbic acid to continue along with incentive spirometry and monitor clinical course closely. Continue supportive care. MMODL / IJN: [id number] /
[2021-05-03] MEDS: LEVOTHYROXINE 137 MCG TAB PO SCH (06:07)
[2021-05-03 07:13] LABS: Glucose,Whole Blood 141 mg/dL (75-99)
[2021-05-03] MEDS: ALBUTEROL HFA INHALER INHALATION SCH ×3 (08:52→20:03)
[2021-05-03] MEDS: SYMBICORT 160-4.5 MCG INHALER INHALATION PRN (08:53)
[2021-05-03 09:06] LABS: HCT 36.8 % (37.2-46.3); HGB 11.4 g/dL (12.0-15.0); MCH 31.7 pg (27.0-32.0); MCV 102.2 fL (80.0-97.0); Mean Platelet Volume 10.7 fL (9.5-12.2); Platelet Count 414 X 10*3/uL (140-440); RDW 15.4 % (11.5-14.5); WBC 12.19 X 10*3/uL (4.50-10.00)
[2021-05-03] MEDS: CYCLOBENZAPRINE 10 MG TAB PO SCH ×3 (09:35→22:03)
[2021-05-03] MEDS: DULoxetine HCL 60 MG CAPSULE.DR PO SCH (09:35)
[2021-05-03] MEDS: FOLIC ACID 1 MG TAB PO SCH (09:35)
[2021-05-03] MEDS: SENNOSIDES-DOCUSATE SODIUM 1 EACH TAB PO SCH ×2 (09:35→22:03)
[2021-05-03] MEDS: NON FORMULARY DRUG (Canagliflozin [Invokana] 300 MG Tablet) PO SCH (09:36)
[2021-05-03] MEDS: ASCORBIC ACID 500 MG TAB PO SCH (09:36)
[2021-05-03] MEDS: CHOLECALCIFEROL 25 MCG (1000 IU) TABLET PO SCH (09:36)
[2021-05-03] MEDS: ATORVASTATIN 40 MG TAB PO SCH (09:36)
[2021-05-03] MEDS: INSULIN ASPART (NovoLOG) 100 UNIT/ML VIAL SQ SCH ×4 (09:36→22:03)
[2021-05-03] MEDS: APIXABAN 5 MG TAB PO SCH ×2 (09:36→22:03)
[2021-05-03] MEDS: polyethylene glycoL 3350 17 GM POWD.PACK PO SCH (09:37)
[2021-05-03] MEDS: INSULIN DETEMIR (LEVEMIR) 100 UNIT/ML SYR SQ SCH ×2 (09:37→22:03)
[2021-05-03] MEDS: DEXAMETHASONE SOD PHOSPHATE 10 MG/ML 1 ML VIAL IVP SCH (09:37)
[2021-05-03 09:47] LABS: Basophils # (M) 0 X 10*3/uL (0.00-0.10); Eosinophils # (M) 0.49 X 10*3/uL (0.04-0.35); Lymphocytes # (M) 1.34 X 10*3/uL (0.90-5.00); Monocytes # (M) 0.49 X 10*3/uL (0.20-1.00); Myelocytes % 2 % (0-0); Neutrophils # (M) 9.51 X 10*3/uL (2.00-8.90); Neutrophils % (M) 78 %; Promyelocytes % 1 % (0-0)
[2021-05-03] MEDS ORDERED: SODIUM CHLORIDE 0.65% NASAL SPRAY 44 ML BTL NASAL PRN (11:27)
[2021-05-03 11:44] LABS: Glucose,Whole Blood 288 mg/dL (75-99)
--- NOTE | 2021-05-03 13:45 | P.PN ---
Subjective Progress Note Date: 05/03/21 Principal diagnosis: Dyspnea On 04/29/2021 patient seen in follow-up on medical surgical floor. She is awake and alert, in no acute distress, she remains on Airvo at 55% FiO2 of 60%. She is up in the chair she was transferred out of intensive care unit yesterday. Stable overnight, no acute events, lung sounds reveal some diffuse crackles, she is working on incentive spirometer she says achieve an 1000. She remains on Symbicort and albuterol inhaled bronchodilators, she remains on Decadron 6 mg daily. Patient is on anticoagulation in the form of Eliquis for history of chronic DVT. Overall FiO2 has been cut back and patient has maintained stable O2 saturations without worsening dyspnea. His labs have been reviewed her white blood cell count is 8.5, hemoglobin is 12.3, platelet count is 268, d-dimer is 11.26, sodium is 141, potassium is 4.1, chloride is 109, BUN is 26 creatinine 0.51. Her LDH is 1012, CRP was 1.7, pro calcitonin level was improved and was down to 0.05 On April 302021, patient is seen in follow-up on medical surgical floor. She remains Airvo at 55 L and FiO2 50%, she looks like she is breathing more comfortably today. She is afebrile, hemodynamically she has been stable, she remains on Decadron 6 mg daily, remains on inhaled bronchodilators. She remains on home dose Eliquis 5 mg twice daily. Her d-dimer yesterday was 11.26. Patient denies any chest pain, no worsening cough or sputum production. No nausea vomiting or diarrhea. On 05/01/2021 patient seen in follow-up on medical surgical floor. She remains on Airvo at 15 L and FiO2 of 50%, and her O2 saturations are marginal at 88-89% but hemodynamically patient appears to be breathing comfortably, not tachypneic, not using accessory muscles of breathing, she is up in the chair, she is working with physical therapy, she has been get not to the commode, she has been using a walker, tolerates activity fairly well, no chest discomfort, she's been afebrile, vital signs stable, patient remains on Symbicort, Ventolin inhaler, she remains on Decadron 6 mg daily and she is on Eliquis 5 mg twice daily. Today's d-dimer slightly improved compared to yesterday and is down to 10.5, lower extremity Dopplers were completed, this was a technically difficult study but both legs appear to be negative for DVT. On 05/02/2021 patient seen in follow-up on medical surgical floor. She is currently on Airvo at 40 L and FiO2 of 53%, and her pulse ox is 92%, looks very comfortable, does not appear to be in any acute distress, she continues on Decadron 6 mg daily, she continues on Eliquis 5 mg twice daily, Symbicort, she is on multivitamins, lower extremity Dopplers revealed no evidence of DVT. Limited echo was completed for the reason of tachycardia, and her EF was low normal at 50-55%. Limited cough, no complaints of chest discomfort, vital signs have been stable, patient has been afebrile. Patient is sitting up in the recliner, nursing staff is helping her with her bath, appetite is fair. on 05/03/2021 patient seen in follow-up on medical surgical floor. She remains on Airvo currently at 30 L and FiO2 is 55%, her pulse ox is 92%, breathing comfortably, although still has exertional dyspnea, she is working on parameter, she is achieving 1000 mL on the today. On sounds reveal diffuse crackles, occasional cough, no complaints of chest discomfort, patient is sitting up in the recliner, she's been able to tolerate ambulation to the bathroom she's been working physical therapy, no acute events overnight, she remains on inhaled bronchodilators, she remains on Eliquis. his labs have been reviewed, d-dimer is improving and is down to 6.82, white blood cell count is 12.19, hemoglobin is 11.4, BMP is still pending. Objective - Vital Signs Vital signs: Vital Signs Temp 98.2 F 05/03/21 10:50 Pulse 85 05/03/21 10:50 Resp 14 05/03/21 10:50 BP 117/69 05/03/21 10:50 Pulse Ox 92 L 05/03/21 10:50 Intake & Output 05/02/21 05/03/21 05/03/21 18:59 06:59 18:59 Output Total 200 Balance -200 Output: Urine 200 Other: Voiding Method Bedside Commode Bedside Commode # Voids 3 3 - Exam GENERAL EXAM: Alert, very pleasant, 66-year-old white female, on Airvo with 30 L and FiO2 of 50%, sitting in a chair, comfortable in no apparent distress. HEAD: Normocephalic/atraumatic. EYES: Normal reaction of pupils, equal size. Conjunctiva pink, sclera white. NOSE: Clear with pink turbinates. THROAT: No erythema or exudates. NECK: No masses, no JVD, no thyroid enlargement, no adenopathy. CHEST: No chest wall deformity. Symmetrical expansion. LUNGS: Equal air entry with bibasilar crackles CVS: Regular rate and rhythm, normal S1 and S2, no gallops, no murmurs, no rubs ABDOMEN: Soft, nontender. No hepatosplenomegaly, normal bowel sounds, no guarding or rigidity. EXTREMITIES: No clubbing, no edema, no cyanosis, 2+ pulses and upper and lower extremities. MUSCULOSKELETAL: Muscle strength and tone normal. SPINE: No scoliosis or deformity SKIN: No rashes CENTRAL NERVOUS SYSTEM: Alert and oriented -3. No focal deficits, tone is normal in all 4 extremities. PSYCHIATRIC: Alert and oriented -3. Appropriate affect. Intact judgment and insight. - Labs CBC & Chem 7: 05/03/21 05:48 05/01/21 04:51 Labs: Abnormal Lab Results - Last 24 Hours (Table) 05/02/21 05/02/21 05/03/21 Range/Units 16:54 20:14 05:48 WBC (4.50-10.00) X 10*3/uL RBC (4.10-5.20) X 10*6/uL Hgb (12.0-15.0) g/dL Hct (37.2-46.3) % MCV (80.0-97.0) fL MCHC (32.0-37.0) g/dL RDW (11.5-14.5) % Absolute Nucleated RBC (0.00-0.00) X 10*3/uL Myelocytes % (0-0) % Promyelocytes % (0-0) % Neutrophils # (Manual) (2.00-8.90) X 10*3/uL Eosinophils # (Manual) (0.04-0.35) X 10*3/uL NRBC/100 WBC Diff (0.0-0.0) /100 WBCS D-Dimer 6.82 H (<0.60) mg/L FEU POC Glucose (mg/dL) 217 H 287 H (75-99) mg/dL 05/03/21 05/03/21 05/03/21 Range/Units 05:48 07:12 11:43 WBC 12.19 H (4.50-10.00) X 10*3/uL RBC 3.60 L (4.10-5.20) X 10*6/uL Hgb 11.4 L (12.0-15.0) g/dL Hct 36.8 L (37.2-46.3) % MCV 102.2 H (80.0-97.0) fL MCHC 31.0 L (32.0-37.0) g/dL RDW 15.4 H (11.5-14.5) % Absolute Nucleated RBC 0.08 H (0.00-0.00) X 10*3/uL Myelocytes % 2 H (0-0) % Promyelocytes % 1 H (0-0) % Neutrophils # (Manual) 9.51 H (2.00-8.90) X 10*3/uL Eosinophils # (Manual) 0.49 H (0.04-0.35) X 10*3/uL NRBC/100 WBC Diff 0.7 H (0.0-0.0) /100 WBCS D-Dimer (<0.60) mg/L FEU POC Glucose (mg/dL) 141 H 288 H (75-99) mg/dL Microbiology - Last 24 Hours (Table) 04/26/21 09:24 Blood Culture - Final Blood No Growth after 144 hours 04/26/21 09:28 Blood Culture - Final Blood No Growth after 144 hours Assessment and Plan Plan: Assessment: #1. Acute hypoxic respiratory failure second to COVID-19 pneumonia. Patient is currently on Airvo 30L and FiO2 of 50%. Patient is on non-vaccinated adult. Patient has received monoclonal antibodies on an outpatient basis. Currently has a diffuse bilateral pulmonary infiltrates, she's been treated with Decadron 6 mg daily, and Eliquis #2. Acute COVID-19 related pneumonia #3. 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 Shortness of breath related to the above #5. History of chronic DVT and hypercoagulable state, maintained on Eliquis 5 mg twice a day #6. History of COPD on bronchodilators in the form of all due to on Symbicort #7. Diabetes mellitus type 2 #8. Acute kidney injury related to ATN and sepsis improving with IV fluids #9. History of hypothyroidism #10. Benign essential hypertension #11. Hypotension, likely hypovolemic in nature, recovered and the patient is currently off pressors #12. Degenerative joint disease and history of MRSA infection #13. Blood cultures positive for micrococcus species, and bacillus species not diaphoresis, with a follow-up cultures are showing no growth. Plan: Patient continues to require Airvo, however the flow is down to 30 l/min and FiO2 of 50% Breathing comfortably, does have exertional dyspnea, but no distress No acute events Vital signs are stable Continue Eliquis 5 mg twice daily Continue Decadron, multivitamins Encourage incentive spirometry Overall seems to be stable, and improving We'll continue to follow her clinical course I performed a history & physical examination of the patient and discussed their management with my nurse practitioner, Catrina Peña. I reviewed the nurse practitioner's note and agree with the documented findings and plan of care. Lung sounds are positive for bilateral crackles throughout the lung coronado. The findings and the impression was discussed with the patient. I attest to the documentation by the nurse practitioner. Time with Patient: Less than 30
[2021-05-03 14:06] LABS: C Reactive Protein 0.4 mg/dL (0.00-0.80)
--- NOTE | 2021-05-03 15:43 | PN ---
PROGRESS NOTE DATE OF SERVICE: 05/03/2021 This 66-year-old woman who was admitted with acute COVID-19 interstitial pneumonia, acute hypoxic respiratory failure, is on AIRVO. AIRVO concentration may be able to be titrated down. The patient is on multiple medications and the patient white count is 12. D-dimer is still elevated at 6.82. LDH is also elevated. Sugar is also elevated up to 288. Multiple consultants are following the patient closely. Past medical history reviewed. REVIEW OF SYSTEMS: CARDIOVASCULAR SYSTEM: No angina. RESPIRATION: As mentioned earlier. GI: As mentioned earlier. : No dysuria. NERVOUS SYSTEM: No numbness, weakness. CURRENT MEDICATIONS: Reviewed. They include [place], Ventolin, Eliquis, vitamin C, Lipitor, Symbicort. Doses and other medications are reviewed. PHYSICAL EXAMINATION: Patient alert and oriented x3. Pulse 85, blood pressure 170/69, respiration 14, temperature 98.2, pulse ox 97% on AIRVO of 30 L and 55%. HEENT: Conjunctivae normal. NECK: No jugular venous distention. CARDIOVASCULAR: S1, S2 muffled. RESPIRATION: Breath sounds diminished at the bases. A few scattered rhonchi and crackles. ABDOMEN: Soft, nontender. LEGS: No edema. No swelling. NERVOUS SYSTEM: No focal deficit. LABS: WBC 12.19, hemoglobin 11.4. D-dimer 6.8. ASSESSMENT: 1. Acute COVID-19 infection with acute COVID-19 bilateral interstitial pneumonia with acute hypoxic respiratory failure, on AIRVO. 2. Micrococcus species and coagulase-negative Staph from the blood culture, possibly contaminant. 3. Hyponatremia. 4. Bilateral leg lesions, possibly acute cellulitis, left more than the right; on antibiotics. 5. Sepsis ruled out. 6. Increased creatinine with acute renal failure with acute tubular necrosis with prerenal factors, present on admission. 7. Increased AST. 8. Increased CRP. 9. Elevated inflammatory markers of COVID-19. 10.Elevated D-dimer with no evidence of pulmonary embolism or deep vein thrombosis. 11.Hypoalbuminemia with mild protein-calorie malnutrition. 12.Increased mean corpuscular volume. 13.Diabetes mellitus, type 2. 14.History of deep vein thrombosis. 15.Hypertension. 16.History of degenerative joint disease. 17.Hyperlipidemia. 18.Hypothyroidism. 19.History of MRSA. 20.History of hysterectomy. 21.FULL CODE. RECOMMENDATIONS AND DISCUSSION: I recommend to continue current medications, continue with the monitoring, symptomatic treatment. Continue to titrate the AIRVO. Continue the bronchodilators. Continue the rest of the medications. Monitor blood sugars closely. Also recommend repeat CBC and BMP. Closely follow with multiple consultants. Prognosis is guarded because of the multiple complex medical issues. Further recommendations to follow. MMODL / IJN: [id number] /
[2021-05-03] MEDS: SODIUM CHLORIDE 0.9% 1,000 ML IV SCH (16:09)
[2021-05-03 16:36] LABS: Glucose,Whole Blood 363 mg/dL (75-99)
[2021-05-03 16:52] LABS: Albumin/Globulin Ratio 1.59 (1.60-3.17); Anion Gap 14.5 mmol/L (10.00-18.00); BUN/Creat Ratio 31.91 Ratio (12.00-20.00); Blood Urea Nitrogen 19.5 mg/dL (9.0-27.0); Calcium 8.7 mg/dL (8.7-10.3); Globulin 1.9 g/dL (1.6-3.3); Non-African American GFR(CKD) 95.8 (60.0-200.0); Potassium 4.7 mmol/L (3.5-5.5); Total Bilirubin 0.6 mg/dL (0.30-1.20); Total Protein 4.9 g/dL (6.2-8.2)
--- NOTE | 2021-05-03 20:31 | PN ---
PROGRESS NOTE DATE OF SERVICE: 05/03/2021 REASON FOR FOLLOWUP: COVID-19 pneumonia. INTERVAL HISTORY: The patient is afebrile. The patient is breathing comfortably. The patient is still requiring high-flow oxygen with AIRVO at 50%. The patient denies having any chest pain or worsening cough or sputum production. No abdominal pain or diarrhea. PHYSICAL EXAMINATION: Blood pressure 125/69, pulse of 120, temperature 97.5. She is 91% on 50% AIRVO. General description is a middle-aged female up in the chair in no distress. Respiratory system: Unlabored breathing, coarse breath sounds bilaterally. No wheeze. Heart S1, S2. Regular rate and rhythm. Abdomen soft, no tenderness. LABS: Hemoglobin 11.4, white count 12.19, creatinine 0.6. DIAGNOSTIC IMPRESSION AND PLAN: 1. Patient with acute respiratory failure secondary to COVID-19 and pneumonia. Slow clinical improvement. Patient is currently on dexamethasone, Eliquis, zinc and ascorbic acid; to continue. 2. Positive blood culture; more likely contaminant. No need for systemic antibiotic therapy. MMODL / IJN: [id number] /
[2021-05-03 21:46] LABS: Glucose,Whole Blood 231 mg/dL (75-99)
[2021-05-04] MEDS: LEVOTHYROXINE 137 MCG TAB PO SCH (06:08)
[2021-05-04 07:49] LABS: Glucose,Whole Blood 229 mg/dL (75-99)
[2021-05-04] MEDS: INSULIN DETEMIR (LEVEMIR) 100 UNIT/ML SYR SQ SCH ×2 (07:58→20:52)
[2021-05-04] MEDS: INSULIN ASPART (NovoLOG) 100 UNIT/ML VIAL SQ SCH ×4 (07:58→20:52)
[2021-05-04] MEDS: SENNOSIDES-DOCUSATE SODIUM 1 EACH TAB PO SCH ×2 (07:59→20:53)
[2021-05-04] MEDS: ATORVASTATIN 40 MG TAB PO SCH (07:59)
[2021-05-04] MEDS: DULoxetine HCL 60 MG CAPSULE.DR PO SCH (07:59)
[2021-05-04] MEDS: APIXABAN 5 MG TAB PO SCH ×2 (07:59→20:52)
[2021-05-04] MEDS: DEXAMETHASONE SOD PHOSPHATE 10 MG/ML 1 ML VIAL IVP SCH (07:59)
[2021-05-04] MEDS: FOLIC ACID 1 MG TAB PO SCH (07:59)
[2021-05-04] MEDS: CYCLOBENZAPRINE 10 MG TAB PO SCH ×3 (07:59→20:52)
[2021-05-04] MEDS: CHOLECALCIFEROL 25 MCG (1000 IU) TABLET PO SCH (07:59)
[2021-05-04] MEDS: polyethylene glycoL 3350 17 GM POWD.PACK PO SCH (08:00)
[2021-05-04] MEDS: ASCORBIC ACID 500 MG TAB PO SCH (08:00)
[2021-05-04] MEDS: NON FORMULARY DRUG (Canagliflozin [Invokana] 300 MG Tablet) PO SCH (08:08)
[2021-05-04] MEDS: ALBUTEROL HFA INHALER INHALATION SCH ×3 (08:09→16:18)
[2021-05-04 10:05] LABS: HCT 36.1 % (37.2-46.3); HGB 11.4 g/dL (12.0-15.0); MCH 32.7 pg (27.0-32.0); MCHC 31.6 g/dL (32.0-37.0); MCV 103.4 fL (80.0-97.0); Mean Platelet Volume 10.8 fL (9.5-12.2); Platelet Count 424 X 10*3/uL (140-440); RBC 3.49 X 10*6/uL (4.10-5.20); RDW 15.6 % (11.5-14.5); WBC 12.56 X 10*3/uL (4.50-10.00)
[2021-05-04 10:34] LABS: African American GFR (CKD) 113.6 (60.0-200.0); Anion Gap 11.5 mmol/L (10.00-18.00); BUN/Creat Ratio 40.07 Ratio (12.00-20.00); Blood Urea Nitrogen 22.8 mg/dL (9.0-27.0); Calcium 8.8 mg/dL (8.7-10.3); Carbon Dioxide 25.2 mmol/L (20.0-27.5); Potassium 4.8 mmol/L (3.5-5.5)
[2021-05-04 10:37] LABS: Basophils # (M) 0 X 10*3/uL (0.00-0.10); Eosinophils # (M) 0.13 X 10*3/uL (0.04-0.35); Lymphocytes # (M) 1.51 X 10*3/uL (0.90-5.00); Metamyelocytes % 1 % (0-0); Monocytes # (M) 0.63 X 10*3/uL (0.20-1.00); Neutrophils # (M) 10.17 X 10*3/uL (2.00-8.90); Neutrophils % (M) 81 %
[2021-05-04 11:44] LABS: Glucose,Whole Blood 280 mg/dL (75-99)
[2021-05-04] MEDS: SODIUM CHLORIDE 0.9% 1,000 ML IV SCH (11:52)
--- NOTE | 2021-05-04 15:02 | P.PN ---
Subjective This is a pleasant 66 years old female with past medical history of diabetes mellitus, hypothyroidism, DVT, hypertension, hyperlipidemia, osteoarthritis. Presents with respiratory symptoms secondary to bilateral: Pneumonia and hypoxia, she's been evaluated and followed closely by pulmonary service, she is on multiple vitamins including vitamin C and D and dexamethasone. Also she is on home dose of Eliquis. And Pepcid. Besides that her oxygen requirements actually slightly improving down from 30 L down to 25 L and FiO2 of 40% with saturation of about 89%. Her sugar is slightly elevated more than 400, however she is requiring less treatment compared to home, at home she was on Lantus 30 units twice a day and here she is on Levemir 20 units at at bedtime, also she was on metformin 1000 twice a day, prednisone to restart her metformin at 500 mg twice a day, also she was on invokana at home which is not available at this facility. Continue with insulin sliding scale. Her BUN/creatinine ratio is trending up 31 up to 40, therefore we started the patient was 75 mL/h. Ejection fraction is 50-55%, ultrasound of the neck is negative for DVT. Objective - Vital Signs Vital signs: Vital Signs Temp 98.5 F 05/04/21 10:00 Pulse 96 05/04/21 10:00 Resp 20 05/04/21 10:00 BP 129/77 05/04/21 10:00 Pulse Ox 88 L 05/04/21 12:16 Intake & Output 05/03/21 05/04/21 05/04/21 18:59 06:59 18:59 Output Total 200 500 Balance -200 -500 Output: Urine 200 500 Other: Voiding Method Bedside Commode Bedside Commode Bedside Commode # Voids 2 - Exam -GENERAL: The patient is alert and oriented x3, not in any acute distress. Obese of 37.6 HEENT: Pupils are round and equally reacting to light. EOMI. No scleral icterus. No conjunctival pallor. Normocephalic, atraumatic. No pharyngeal erythema. No thyromegaly. CARDIOVASCULAR: S1 and S2 present. No murmurs, rubs, or gallops. PULMONARY: Chest is clear to auscultation, no wheezing or crackles. ABDOMEN: Soft, nontender, nondistended, normoactive bowel sounds. No palpable organomegaly. MUSCULOSKELETAL: No joint swelling or deformity. EXTREMITIES: No cyanosis, clubbing, or pedal edema. NEUROLOGICAL: Gross neurological examination did not reveal any focal deficits. SKIN: No rashes. no petechiae. - Labs CBC & Chem 7: 05/04/21 04:17 05/04/21 04:17 Labs: Abnormal Lab Results - Last 24 Hours (Table) 05/03/21 05/03/21 05/03/21 Range/Units 05:48 16:35 21:45 WBC (4.50-10.00) X 10*3/uL RBC (4.10-5.20) X 10*6/uL Hgb (12.0-15.0) g/dL Hct (37.2-46.3) % MCV (80.0-97.0) fL MCH (27.0-32.0) pg MCHC (32.0-37.0) g/dL RDW (11.5-14.5) % Absolute Nucleated RBC (0.00-0.00) X 10*3/uL Metamyelocytes % (0-0) % Neutrophils # (Manual) (2.00-8.90) X 10*3/uL NRBC/100 WBC Diff (0.0-0.0) /100 WBCS BUN/Creatinine Ratio 31.91 H (12.00-20.00) Ratio Glucose 156 H (70-110) mg/dL POC Glucose (mg/dL) 363 H 231 H (75-99) mg/dL Lactate Dehydrogenase 338 H (120-246) U/L Total Protein 4.9 L (6.2-8.2) g/dL Albumin 3.0 L (3.8-4.9) g/dL Albumin/Globulin Ratio 1.59 L (1.60-3.17) g/dL 05/04/21 05/04/21 05/04/21 Range/Units 04:17 04:17 07:46 WBC 12.56 H (4.50-10.00) X 10*3/uL RBC 3.49 L (4.10-5.20) X 10*6/uL Hgb 11.4 L (12.0-15.0) g/dL Hct 36.1 L (37.2-46.3) % MCV 103.4 H (80.0-97.0) fL MCH 32.7 H (27.0-32.0) pg MCHC 31.6 L (32.0-37.0) g/dL RDW 15.6 H (11.5-14.5) % Absolute Nucleated RBC 0.10 H (0.00-0.00) X 10*3/uL Metamyelocytes % 1 H (0-0) % Neutrophils # (Manual) 10.17 H (2.00-8.90) X 10*3/uL NRBC/100 WBC Diff 0.8 H (0.0-0.0) /100 WBCS BUN/Creatinine Ratio 40.07 H (12.00-20.00) Ratio Glucose 225 H (70-110) mg/dL POC Glucose (mg/dL) 229 H (75-99) mg/dL Lactate Dehydrogenase (120-246) U/L Total Protein (6.2-8.2) g/dL Albumin (3.8-4.9) g/dL Albumin/Globulin Ratio (1.60-3.17) g/dL 05/04/21 Range/Units 11:41 WBC (4.50-10.00) X 10*3/uL RBC (4.10-5.20) X 10*6/uL Hgb (12.0-15.0) g/dL Hct (37.2-46.3) % MCV (80.0-97.0) fL MCH (27.0-32.0) pg MCHC (32.0-37.0) g/dL RDW (11.5-14.5) % Absolute Nucleated RBC (0.00-0.00) X 10*3/uL Metamyelocytes % (0-0) % Neutrophils # (Manual) (2.00-8.90) X 10*3/uL NRBC/100 WBC Diff (0.0-0.0) /100 WBCS BUN/Creatinine Ratio (12.00-20.00) Ratio Glucose (70-110) mg/dL POC Glucose (mg/dL) 280 H (75-99) mg/dL Lactate Dehydrogenase (120-246) U/L Total Protein (6.2-8.2) g/dL Albumin (3.8-4.9) g/dL Albumin/Globulin Ratio (1.60-3.17) g/dL Microbiology - Last 24 Hours (Table) 05/03/21 16:48 Gram Stain - Preliminary Sputum Sputum Culture - Preliminary Assessment and Plan Assessment: Bilateral Covid pneumonia Acute hypoxic respiratory failure Increased inflammatory markers Diabetes mellitus History of DVT on Eliquis Hypertension Hyperlipidemia Plan: This is a pleasant 66 years old female who presents with bilateral covid pneumonia Continue with dexamethasone Continue with vitamin C, vitamin D Pulmonary consult Start gentle hydration Resume metformin Labs and medication were reviewed.. Continue same treatment. Continue with symptomatic treatment. Resume home medication. Monitor lytes and vitals. DVT and GI prophylaxis. Further recommendationsas per clinical course of the patient DVT prophylaxis: Eliquis GI Prophylaxis: Pepcid PT/OT: Pending Prognosis is guarded
--- NOTE | 2021-05-04 16:39 | P.PN ---
Subjective Progress Note Date: 05/04/21 Principal diagnosis: Respiratory failure. On 05/01/2021 patient seen in follow-up on medical surgical floor. She remains on Airvo at 15 L and FiO2 of 50%, and her O2 saturations are marginal at 88-89% but hemodynamically patient appears to be breathing comfortably, not tachypneic, not using accessory muscles of breathing, she is up in the chair, she is working with physical therapy, she has been get not to the commode, she has been using a walker, tolerates activity fairly well, no chest discomfort, she's been afebrile, vital signs stable, patient remains on Symbicort, Ventolin inhaler, she remains on Decadron 6 mg daily and she is on Eliquis 5 mg twice daily. Today's d-dimer slightly improved compared to yesterday and is down to 10.5, lower extremity Dopplers were completed, this was a technically difficult study but both legs appear to be negative for DVT. On 05/02/2021 patient seen in follow-up on medical surgical floor. She is currently on Airvo at 40 L and FiO2 of 53%, and her pulse ox is 92%, looks very comfortable, does not appear to be in any acute distress, she continues on Decadron 6 mg daily, she continues on Eliquis 5 mg twice daily, Symbicort, she is on multivitamins, lower extremity Dopplers revealed no evidence of DVT. Limited echo was completed for the reason of tachycardia, and her EF was low normal at 50-55%. Limited cough, no complaints of chest discomfort, vital signs have been stable, patient has been afebrile. Patient is sitting up in the recliner, nursing staff is helping her with her bath, appetite is fair. on 05/03/2021 patient seen in follow-up on medical surgical floor. She remains on Airvo currently at 30 L and FiO2 is 55%, her pulse ox is 92%, breathing comfortably, although still has exertional dyspnea, she is working on parameter, she is achieving 1000 mL on the today. On sounds reveal diffuse crackles, occ asional cough, no complaints of chest discomfort, patient is sitting up in the recliner, she's been able to tolerate ambulation to the bathroom she's been working physical therapy, no acute events overnight, she remains on inhaled bronchodilators, she remains on Eliquis. his labs have been reviewed, d-dimer is improving and is down to 6.82, white blood cell count is 12.19, hemoglobin is 11.4, BMP is still pending. Progress note dated 05/04/2021. The patient is again seen on the general medical floor, room 460. His been in the hospital now for 10 days. Currently, the patient is on AIRVO, at 25 L/m, with an FiO2 of 42%. The patient is not getting any IV fluids. She states that she is feeling much better. She sitting in the chair next to her bed. She was actually eating lunch. Currently labs include a white count of 12.56, hemoglobin 11.4, hematocrit 36.1, and a platelet count of 424,000. Sodium 141, potassium 4.8, chlorides 104, CO2 25, anion gap 12, BUN 23, and creatinine 0.6. Blood cultures from April 24 show evidence of micrococcus species, as well as coag-negative staph. Dopplers of the lower extremities, on May 01, were negative. Objective - Vital Signs Vital signs: Vital Signs Temp 98.4 F 05/04/21 14:37 Pulse 94 05/04/21 14:37 Resp 20 05/04/21 14:37 BP 124/73 05/04/21 14:37 Pulse Ox 89 L 05/04/21 14:37 Intake & Output 05/03/21 05/04/21 05/04/21 18:59 06:59 18:59 Output Total 200 500 Balance -200 -500 Output: Urine 200 500 Other: Voiding Method Bedside Commode Bedside Commode Bedside Commode # Voids 2 - Exam No acute distress, oriented 3. Currently on AIRVO. Saturations are 90%. She appears very comfortable. HEENT examination is grossly unremarkable. Neck supple. Full range of motion. No adenopathy thyromegaly or neck vein distention. Cardiovascular examination reveals regular rhythm rate. S1-S2 normal. No S3 or S4. No discernible murmur noted. Heart sounds are distant. Heart rate 94 bpm. Lungs reveal bilateral rhonchi. No wheezes. Basilar crackles are noted. Breath sounds equal bilaterally. Abdomen soft bowel sounds are heard. No masses or tenderness. Extremities are intact. No cyanosis clubbing or edema. Skin is without rash or lesion. Neurologic examination is brief but nonfocal. - Labs CBC & Chem 7: 05/04/21 04:17 05/04/21 04:17 Labs: Abnormal Lab Results - Last 24 Hours (Table) 05/03/21 05/03/21 05/03/21 Range/Units 05:48 16:35 21:45 WBC (4.50-10.00) X 10*3/uL RBC (4.10-5.20) X 10*6/uL Hgb (12.0-15.0) g/dL Hct (37.2-46.3) % MCV (80.0-97.0) fL MCH (27.0-32.0) pg MCHC (32.0-37.0) g/dL RDW (11.5-14.5) % Absolute Nucleated RBC (0.00-0.00) X 10*3/uL Metamyelocytes % (0-0) % Neutrophils # (Manual) (2.00-8.90) X 10*3/uL NRBC/100 WBC Diff (0.0-0.0) /100 WBCS BUN/Creatinine Ratio 31.91 H (12.00-20.00) Ratio Glucose 156 H (70-110) mg/dL POC Glucose (mg/dL) 363 H 231 H (75-99) mg/dL Total Protein 4.9 L (6.2-8.2) g/dL Albumin 3.0 L (3.8-4.9) g/dL Albumin/Globulin Ratio 1.59 L (1.60-3.17) g/dL 05/04/21 05/04/21 05/04/21 Range/Units 04:17 04:17 07:46 WBC 12.56 H (4.50-10.00) X 10*3/uL RBC 3.49 L (4.10-5.20) X 10*6/uL Hgb 11.4 L (12.0-15.0) g/dL Hct 36.1 L (37.2-46.3) % MCV 103.4 H (80.0-97.0) fL MCH 32.7 H (27.0-32.0) pg MCHC 31.6 L (32.0-37.0) g/dL RDW 15.6 H (11.5-14.5) % Absolute Nucleated RBC 0.10 H (0.00-0.00) X 10*3/uL Metamyelocytes % 1 H (0-0) % Neutrophils # (Manual) 10.17 H (2.00-8.90) X 10*3/uL NRBC/100 WBC Diff 0.8 H (0.0-0.0) /100 WBCS BUN/Creatinine Ratio 40.07 H (12.00-20.00) Ratio Glucose 225 H (70-110) mg/dL POC Glucose (mg/dL) 229 H (75-99) mg/dL Total Protein (6.2-8.2) g/dL Albumin (3.8-4.9) g/dL Albumin/Globulin Ratio (1.60-3.17) g/dL 05/04/21 Range/Units 11:41 WBC (4.50-10.00) X 10*3/uL RBC (4.10-5.20) X 10*6/uL Hgb (12.0-15.0) g/dL Hct (37.2-46.3) % MCV (80.0-97.0) fL MCH (27.0-32.0) pg MCHC (32.0-37.0) g/dL RDW (11.5-14.5) % Absolute Nucleated RBC (0.00-0.00) X 10*3/uL Metamyelocytes % (0-0) % Neutrophils # (Manual) (2.00-8.90) X 10*3/uL NRBC/100 WBC Diff (0.0-0.0) /100 WBCS BUN/Creatinine Ratio (12.00-20.00) Ratio Glucose (70-110) mg/dL POC Glucose (mg/dL) 280 H (75-99) mg/dL Total Protein (6.2-8.2) g/dL Albumin (3.8-4.9) g/dL Albumin/Globulin Ratio (1.60-3.17) g/dL Microbiology - Last 24 Hours (Table) 05/03/21 16:48 Gram Stain - Preliminary Sputum Sputum Culture - Preliminary Assessment and Plan Assessment: #1. Acute hypoxic respiratory failure second to COVID-19 pneumonia. Patient is currently on Airvo 25 L/m and 42%. Patient is on non-vaccinated adult. Patient has received monoclonal antibodies on an outpatient basis. Currently has a diffuse bilateral pulmonary infiltrates, she's been treated with Decadron 6 mg daily, and Eliquis. #2. Acute COVID-19 related pneumonia. #3. 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 #4. Shortness of breath related to the above. #5. History of chronic DVT and hypercoagulable state, maintained on Eliquis 5 mg twice a day. #6. History of COPD on bronchodilators in the form of all due to on Symbicort. #7. Diabetes mellitus type 2. #8. Acute kidney injury related to ATN and sepsis improving with IV fluids. #9. History of hypothyroidism. #10. Benign essential hypertension. #11. Hypotension, likely hypovolemic in nature, recovered and the patient is currently off pressors. #12. Degenerative joint disease and history of MRSA infection. #13. Blood cultures positive for micrococcus species, and bacillus species not diaphoresis, with a follow-up cultures are showing no growth. Plan: Plan dated 05/04/2021. The patient remains on AIRVO. She's been weaned down to 25 L/m, and an FiO2 of 42%. The patient saturations are hanging right around 90%. She clinically looks very stable. She does not appear to be short of breath. The patient remains on Eliquis, 5 mg twice a day, as well as Decadron, and normal usual vitamins. We will continue to follow make recommendations where appropriate. We encourage incentive spirometry. Prognosis is guarded. Time with Patient: Less than 30
[2021-05-04 17:04] LABS: Glucose,Whole Blood 272 mg/dL (75-99)
[2021-05-04] MEDS: metFORMIN 500 MG TAB PO SCH ×2 (17:16→18:20)
--- NOTE | 2021-05-04 18:37 | PN ---
PROGRESS NOTE DATE OF SERVICE: 05/04/2021 REASON FOR FOLLOWUP: COVID-19 pneumonia. INTERVAL HISTORY: The patient is afebrile. The patient is feeling slightly comfortably. She is down to 40% FiO2 on AIRVO. The patient denies having any chest pain or worsening cough or sputum production. No abdominal pain or diarrhea. PHYSICAL EXAMINATION: Blood pressure 124/73 with a pulse of 94, temperature 98.4. She is 89% on 40% FiO2. General description is a middle-aged female up in the chair in no distress. Respiratory system: Unlabored breathing, decreased intensity of breath sounds. No wheeze or crackle. Heart S1, S2. Regular rate and rhythm. Abdomen soft, no tenderness. LABS: Hemoglobin is 11.4, white count 12.56. Creatinine 0.6. DIAGNOSTIC IMPRESSION AND PLAN: Patient with acute respiratory failure secondary the COVID-19 pneumonia in this patient with slow clinical improvement. Patient to continue with Eliquis, dexamethasone, zinc and ascorbic acid along with respiratory support, and monitor clinical course closely. MMODL / IJN: [id number] /
[2021-05-04] MEDS: SYMBICORT 160-4.5 MCG INHALER INHALATION PRN (20:18)
[2021-05-04 20:19] LABS: Glucose,Whole Blood 247 mg/dL (75-99)
[2021-05-05] MEDS: LEVOTHYROXINE 137 MCG TAB PO SCH ×2 (06:16→07:40)
[2021-05-05 07:29] LABS: Glucose,Whole Blood 125 mg/dL (75-99)
[2021-05-05] MEDS: metFORMIN 500 MG TAB PO SCH (07:38)
[2021-05-05] MEDS: ATORVASTATIN 40 MG TAB PO SCH (07:38)
[2021-05-05] MEDS: FOLIC ACID 1 MG TAB PO SCH (07:38)
[2021-05-05] MEDS: ASCORBIC ACID 500 MG TAB PO SCH (07:38)
[2021-05-05] MEDS: CHOLECALCIFEROL 25 MCG (1000 IU) TABLET PO SCH (07:38)
[2021-05-05] MEDS: APIXABAN 5 MG TAB PO SCH ×2 (07:38→21:24)
[2021-05-05] MEDS: SENNOSIDES-DOCUSATE SODIUM 1 EACH TAB PO SCH ×2 (07:38→21:26)
[2021-05-05] MEDS: CYCLOBENZAPRINE 10 MG TAB PO SCH ×3 (07:38→21:24)
[2021-05-05] MEDS: polyethylene glycoL 3350 17 GM POWD.PACK PO SCH (07:39)
[2021-05-05] MEDS: DULoxetine HCL 60 MG CAPSULE.DR PO SCH (07:39)
[2021-05-05] MEDS: DEXAMETHASONE SOD PHOSPHATE 10 MG/ML 1 ML VIAL IVP SCH (07:39)
[2021-05-05] MEDS: INSULIN DETEMIR (LEVEMIR) 100 UNIT/ML SYR SQ SCH ×2 (07:39→21:25)
[2021-05-05] MEDS: ALBUTEROL HFA INHALER INHALATION SCH ×3 (07:41→20:31)
[2021-05-05] MEDS: SYMBICORT 160-4.5 MCG INHALER INHALATION PRN ×2 (07:41→20:31)
[2021-05-05] MEDS: INSULIN ASPART (NovoLOG) 100 UNIT/ML VIAL SQ SCH ×4 (07:48→21:25)
[2021-05-05] MEDS: SODIUM CHLORIDE 0.9% 1,000 ML IV SCH (07:48)
[2021-05-05] MEDS: NON FORMULARY DRUG (Canagliflozin [Invokana] 300 MG Tablet) PO SCH (07:48)
[2021-05-05 09:23] LABS: African American GFR (CKD) 110.3 (60.0-200.0); Anion Gap 9.2 mmol/L (10.00-18.00); BUN/Creat Ratio 32.64 Ratio (12.00-20.00); Blood Urea Nitrogen 20.3 mg/dL (9.0-27.0); Carbon Dioxide 29.2 mmol/L (20.0-27.5); Magnesium 1.9 mg/dL (1.5-2.4); Non-African American GFR(CKD) 95.2 (60.0-200.0); Potassium 5.5 mmol/L (3.5-5.5)
[2021-05-05 11:56] LABS: Glucose,Whole Blood 224 mg/dL (75-99)
--- NOTE | 2021-05-05 12:27 | P.PN ---
Subjective This is a pleasant 66 years old female with past medical history of diabetes mellitus, hypothyroidism, DVT, hypertension, hyperlipidemia, osteoarthritis. Presents with respiratory symptoms secondary to bilateral: Pneumonia and hypoxia, she's been evaluated and followed closely by pulmonary service, she is on multiple vitamins including vitamin C and D and dexamethasone. Also she is on home dose of Eliquis. And Pepcid. Besides that her oxygen requirements actually slightly improving down from 30 L down to 25 L and FiO2 of 40% with saturation of about 89%. Her sugar is slightly elevated more than 400, however she is requiring less treatment compared to home, at home she was on Lantus 30 units twice a day and here she is on Levemir 20 units at at bedtime, also she was on metformin 1000 twice a day, prednisone to restart her metformin at 500 mg twice a day, also she was on invokana at home which is not available at this facility. Continue with insulin sliding scale. Her BUN/creatinine ratio is trending up 31 up to 40, therefore we started the patient was 75 mL/h. Ejection fraction is 50-55%, ultrasound of the neck is negative for DVT. 05/05/2021 Patient breathing looks slightly improving, currently she is down to 7 L/m of oxygen supplementation. Her glucose also is better controlled after put her back on metformin 500 mg com pared to 1000 mg at home. We are going to increase it to 850 mg twice a day. Sputum culture is growing staph. Follow-up final result. She remains on dexamethasone, vitamins, home dose of Eliquis and normal saline at 75 mL/h Objective - Vital Signs Vital signs: Vital Signs Temp 98.1 F 05/05/21 10:00 Pulse 105 H 05/05/21 10:00 Resp 20 05/05/21 10:00 BP 109/64 05/05/21 10:00 Pulse Ox 92 L 05/05/21 10:00 Intake & Output 05/04/21 05/05/21 05/05/21 18:59 06:59 18:59 Output Total 4 Balance -4 Output: Urine 4 Other: Voiding Method Bedside Commode Bedside Commode # Voids 3 # Bowel Movements 1 - Exam -GENERAL: The patient is alert and oriented x3, not in any acute distress. Obese of 37.6 HEENT: Pupils are round and equally reacting to light. EOMI. No scleral icterus. No conjunctival pallor. Normocephalic, atraumatic. No pharyngeal erythema. No thyromegaly. CARDIOVASCULAR: S1 and S2 present. No murmurs, rubs, or gallops. PULMONARY: Chest is clear to auscultation, no wheezing or crackles. ABDOMEN: Soft, nontender, nondistended, normoactive bowel sounds. No palpable organomegaly. MUSCULOSKELETAL: No joint swelling or deformity. EXTREMITIES: No cyanosis, clubbing, or pedal edema. NEUROLOGICAL: Gross neurological examination did not reveal any focal deficits. SKIN: No rashes. no petechiae. - Labs CBC & Chem 7: 05/04/21 04:17 05/05/21 05:00 Labs: Abnormal Lab Results - Last 24 Hours (Table) 05/04/21 05/04/21 05/04/21 Range/Units 11:41 17:02 20:18 Carbon Dioxide (20.0-27.5) mmol/L Anion Gap (10.00-18.00) mmol/L BUN/Creatinine Ratio (12.00-20.00) Ratio Glucose (70-110) mg/dL POC Glucose (mg/dL) 280 H 272 H 247 H (75-99) mg/dL 05/05/21 05/05/21 Range/Units 05:00 07:27 Carbon Dioxide 29.2 H (20.0-27.5) mmol/L Anion Gap 9.20 L (10.00-18.00) mmol/L BUN/Creatinine Ratio 32.64 H (12.00-20.00) Ratio Glucose 137 H (70-110) mg/dL POC Glucose (mg/dL) 125 H (75-99) mg/dL Microbiology - Last 24 Hours (Table) 05/03/21 16:48 Gram Stain - Preliminary Sputum Sputum Culture - Preliminary Presumptive Staph aureus Assessment and Plan Assessment: Bilateral Covid pneumonia Acute hypoxic respiratory failure Increased inflammatory markers Diabetes mellitus History of DVT on Eliquis Hypertension Hyperlipidemia Plan: This is a pleasant 66 years old female who presents with bilateral covid pneumonia Continue with dexamethasone Continue with vitamin C, vitamin D Pulmonary consult Start gentle hydration Resume metformin Labs and medication were reviewed.. Continue same treatment. Continue with symptomatic treatment. Resume home medication. Monitor lytes and vitals. DVT and GI prophylaxis. Further recommendationsas per clinical course of the patient DVT prophylaxis: Eliquis GI Prophylaxis: Pepcid PT/OT: Pending Prognosis is guarded
--- NOTE | 2021-05-05 14:42 | P.PN ---
Subjective Progress Note Date: 05/05/21 Principal diagnosis: Respiratory failure. On 05/01/2021 patient seen in follow-up on medical surgical floor. She remains on Airvo at 15 L and FiO2 of 50%, and her O2 saturations are marginal at 88-89% but hemodynamically patient appears to be breathing comfortably, not tachypneic, not using accessory muscles of breathing, she is up in the chair, she is working with physical therapy, she has been get not to the commode, she has been using a walker, tolerates activity fairly well, no chest discomfort, she's been afebrile, vital signs stable, patient remains on Symbicort, Ventolin inhaler, she remains on Decadron 6 mg daily and she is on Eliquis 5 mg twice daily. Today's d-dimer slightly improved compared to yesterday and is down to 10.5, lower extremity Dopplers were completed, this was a technically difficult study but both legs appear to be negative for DVT. On 05/02/2021 patient seen in follow-up on medical surgical floor. She is currently on Airvo at 40 L and FiO2 of 53%, and her pulse ox is 92%, looks very comfortable, does not appear to be in any acute distress, she continues on Decadron 6 mg daily, she continues on Eliquis 5 mg twice daily, Symbicort, she is on multivitamins, lower extremity Dopplers revealed no evidence of DVT. Limited echo was completed for the reason of tachycardia, and her EF was low normal at 50-55%. Limited cough, no complaints of chest discomfort, vital signs have been stable, patient has been afebrile. Patient is sitting up in the recliner, nursing staff is helping her with her bath, appetite is fair. on 05/03/2021 patient seen in follow-up on medical surgical floor. She remains on Airvo currently at 30 L and FiO2 is 55%, her pulse ox is 92%, breathing comfortably, although still has exertional dyspnea, she is working on parameter, she is achieving 1000 mL on the today. On sounds reveal diffuse crackles, occ asional cough, no complaints of chest discomfort, patient is sitting up in the recliner, she's been able to tolerate ambulation to the bathroom she's been working physical therapy, no acute events overnight, she remains on inhaled bronchodilators, she remains on Eliquis. his labs have been reviewed, d-dimer is improving and is down to 6.82, white blood cell count is 12.19, hemoglobin is 11.4, BMP is still pending. Progress note dated 05/04/2021. The patient is again seen on the general medical floor, room 460. His been in the hospital now for 10 days. Currently, the patient is on AIRVO, at 25 L/m, with an FiO2 of 42%. The patient is not getting any IV fluids. She states that she is feeling much better. She sitting in the chair next to her bed. She was actually eating lunch. Currently labs include a white count of 12.56, hemoglobin 11.4, hematocrit 36.1, and a platelet count of 424,000. Sodium 141, potassium 4.8, chlorides 104, CO2 25, anion gap 12, BUN 23, and creatinine 0.6. Blood cultures from April 24 show evidence of micrococcus species, as well as coag-negative staph. Dopplers of the lower extremities, on May 01, were negative. Progress note dated 05/05/2021. The patient is again seen on the general medical floor, room 460. Yesterday, she was on AIRVO. Today she is on 7 L high flow O2. She is getting saline at 75 mL an hour. She is feeling much better. She is having much less shortness of breath. Today's labs show a sodium of 142, potassium 5.5, chlorides 104, CO2 29, anion gap 9, BUN 20, and creatinine 0.6. Calcium is 9. Magnesium is 1.9. Glucose 137. The patient remains on vitamins, Decadron, and Eliquis. Objective - Vital Signs Vital signs: Vital Signs Temp 98 F 05/05/21 14:00 Pulse 107 H 05/05/21 14:00 Resp 16 05/05/21 14:00 BP 114/63 05/05/21 14:00 Pulse Ox 94 L 05/05/21 14:00 Intake & Output 05/04/21 05/05/21 05/05/21 18:59 06:59 18:59 Output Total 4 Balance -4 Output: Urine 4 Other: Voiding Method Bedside Commode Bedside Commode # Voids 3 # Bowel Movements 1 - Exam No acute distress, oriented 3. Currently on 7 L high flow nasal O2. Saturations are 94%. She appears very comfortable. HEENT examination is grossly unremarkable. Neck supple. Full range of motion. No adenopathy thyromegaly or neck vein distention. Cardiovascular examination reveals regular rhythm rate. S1-S2 normal. No S3 or S4. No discernible murmur noted. Heart sounds are distant. Heart rate 100 bpm. Lungs reveal bilateral rhonchi. No wheezes. Basilar crackles are noted. Breath sounds equal bilaterally. Saturations are 94%. Abdomen soft bowel sounds are heard. No masses or tenderness. Extremities are intact. No cyanosis clubbing or edema. Skin is without rash or lesion. Neurologic examination is brief but nonfocal. - Labs CBC & Chem 7: 05/04/21 04:17 05/05/21 05:00 Labs: Abnormal Lab Results - Last 24 Hours (Table) 05/04/21 05/04/21 05/05/21 Range/Units 17:02 20:18 05:00 Carbon Dioxide 29.2 H (20.0-27.5) mmol/L Anion Gap 9.20 L (10.00-18.00) mmol/L BUN/Creatinine Ratio 32.64 H (12.00-20.00) Ratio Glucose 137 H (70-110) mg/dL POC Glucose (mg/dL) 272 H 247 H (75-99) mg/dL 05/05/21 05/05/21 Range/Units 07:27 11:54 Carbon Dioxide (20.0-27.5) mmol/L Anion Gap (10.00-18.00) mmol/L BUN/Creatinine Ratio (12.00-20.00) Ratio Glucose (70-110) mg/dL POC Glucose (mg/dL) 125 H 224 H (75-99) mg/dL Microbiology - Last 24 Hours (Table) 05/03/21 16:48 Gram Stain - Preliminary Sputum Sputum Culture - Preliminary Presumptive Staph aureus Assessment and Plan Assessment: #1. Acute hypoxic respiratory failure second to COVID-19 pneumonia. Patient is currently on 7 L high flow nasal O2.. Patient is non-vaccinated adult. Patient has received monoclonal antibodies on an outpatient basis. Currently has a diffuse bilateral pulmonary infiltrates, she's been treated with Decadron 6 mg daily, and Eliquis. #2. Acute COVID-19 related pneumonia. #3. 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 #4. Shortness of breath related to the above. #5. History of chronic DVT and hypercoagulable state, maintained on Eliquis 5 mg twice a day. #6. History of COPD on bronchodilators in the form of all due to on Symbicort. #7. Diabetes mellitus type 2. #8. Acute kidney injury related to ATN and sepsis improving with IV fluids. #9. History of hypothyroidism. #10. Benign essential hypertension. #11. Hypotension, likely hypovolemic in nature, recovered and the patient is currently off pressors. #12. Degenerative joint disease and history of MRSA infection. #13. Blood cultures positive for micrococcus species, and bacillus species not diaphoresis, with a follow-up cultures are showing no growth. Plan: Plan dated 05/04/2021. The patient remains on AIRVO. She's been weaned down to 25 L/m, and an FiO2 of 42%. The patient saturations are hanging right around 90%. She clinically looks very stable. She does not appear to be short of breath. The patient remains on Eliquis, 5 mg twice a day, as well as Decadron, and normal usual vitamins. We will continue to follow make recommendations where appropriate. We encourage incentive spirometry. Prognosis is guarded. Plan dated 05/05/2021. The patient was on AIRVO yesterday. Today she is on 7 L high flow nasal O2. She seems be doing better. She remains on Eliquis, Decadron, and vitamin C, vitamin D3, and zinc. The patient is doing well. We encourage deep breathing, coughing, clearing of secretions. We will like her to use the incentive spirometer, every hour while awake. While in bed, we recommend that she not only late supine, but on her right side, left side, and prone if possible. We will continue to follow. Repeat chest x-ray tomorrow. Time with Patient: Less than 30
[2021-05-05] MEDS: METOPROLOL TARTRATE 12.5 MG TAB PO SCH ×2 (15:19→21:25)
[2021-05-05 16:49] LABS: Glucose,Whole Blood 302 mg/dL (75-99)
[2021-05-05] MEDS: metFORMIN 850 MG TAB PO SCH (16:58)
[2021-05-05 20:26] LABS: Glucose,Whole Blood 206 mg/dL (75-99)
[2021-05-06] MEDS: SODIUM CHLORIDE 0.9% 1,000 ML IV SCH ×2 (02:31→08:49)
--- NOTE | 2021-05-06 05:12 | PN ---
PROGRESS NOTE DATE OF SERVICE: 05/05/2021. REASON FOR FOLLOWUP: Covid 19 pneumonia. INTERVAL HISTORY: Patient is afebrile. The patient is currently breathing comfortably. The patient is down to 7 L nasal cannula. Denies any chest pain. No worsening cough. No sputum production. No abdominal pain. No diarrhea. PHYSICAL EXAMINATION: Blood pressure 132/75 with a pulse of 97, temperature of 98.6. He is 97% on 7 L high- flow oxygen. General description is a middle-aged female up in the chair in no distress. Respiratory system: Unlabored breathing, decreased intensity in breath sounds, no wheeze. Heart S1, S2. Regular rate and rhythm. Abdomen soft, no tenderness. LABS: Creatinine 0.6. Sputum showing Staph Aureus. DIAGNOSTIC IMPRESSION AND PLAN: 1. This patient admitted to the hospital with acute COVID-19 pneumonia in this patient who seems to have shown overall clinical improvement. The patient to continue with current supportive treatment of Dexamethasone, Lovenox, zinc and ascorbic acid along with respiratory support. 2. Patient with positive Pseudomonas Staph Aureus. Clinically not behaving as secondary bacterial pneumonia. We will check a procalcitonin level and repeat the x-ray. Continue supportive care. MMODL / IJN: [id number] /
[2021-05-06] MEDS: LEVOTHYROXINE 137 MCG TAB PO SCH (05:34)
--- NOTE | 2021-05-06 07:26 | XR ---
EXAMINATION TYPE: XR chest 1V portable DATE OF EXAM: 05/06/2021 COMPARISON: 05/01/2021 HISTORY: Cough TECHNIQUE: Single frontal view of the chest is obtained. FINDINGS: Postsurgical changes overlying the cervical spine and there are diffuse bilateral infiltra clarisa. Limited inspiration with tiny pleural effusion. Heart size normal. Atherosclerotic change aorta. No pneumothorax. IMPRESSION: Diffuse bilateral infiltrate.
[2021-05-06 07:37] LABS: Glucose,Whole Blood 113 mg/dL (75-99)
[2021-05-06] MEDS: INSULIN DETEMIR (LEVEMIR) 100 UNIT/ML SYR SQ SCH ×2 (07:43→21:05)
[2021-05-06] MEDS: INSULIN ASPART (NovoLOG) 100 UNIT/ML VIAL SQ SCH ×4 (07:43→21:05)
[2021-05-06] MEDS: DULoxetine HCL 60 MG CAPSULE.DR PO SCH (07:44)
[2021-05-06] MEDS: METOPROLOL TARTRATE 12.5 MG TAB PO SCH ×2 (07:44→21:05)
[2021-05-06] MEDS: ASCORBIC ACID 500 MG TAB PO SCH (07:44)
[2021-05-06] MEDS: CYCLOBENZAPRINE 10 MG TAB PO SCH ×3 (07:44→21:05)
[2021-05-06] MEDS: SENNOSIDES-DOCUSATE SODIUM 1 EACH TAB PO SCH ×2 (07:44→21:06)
[2021-05-06] MEDS: ATORVASTATIN 40 MG TAB PO SCH (07:44)
[2021-05-06] MEDS: FOLIC ACID 1 MG TAB PO SCH (07:45)
[2021-05-06] MEDS: DEXAMETHASONE SOD PHOSPHATE 10 MG/ML 1 ML VIAL IVP SCH (07:45)
[2021-05-06] MEDS: CHOLECALCIFEROL 25 MCG (1000 IU) TABLET PO SCH (07:45)
[2021-05-06] MEDS: APIXABAN 5 MG TAB PO SCH ×2 (07:45→21:05)
[2021-05-06] MEDS: metFORMIN 850 MG TAB PO SCH ×2 (07:45→17:16)
[2021-05-06] MEDS: polyethylene glycoL 3350 17 GM POWD.PACK PO SCH (07:46)
[2021-05-06] MEDS: NON FORMULARY DRUG (Canagliflozin [Invokana] 300 MG Tablet) PO SCH (07:46)
[2021-05-06] MEDS: ALBUTEROL HFA INHALER INHALATION SCH ×3 (09:15→21:10)
[2021-05-06 09:48] LABS: Basophils # (A) 0.07 X 10*3/uL (0.00-0.10); Basophils % (A) 0.5 %; Eosinophils # (A) 0.21 X 10*3/uL (0.04-0.35); Eosinophils % (A) 1.4 %; HCT 41.4 % (37.2-46.3); HGB 12.9 g/dL (12.0-15.0); Lymphocytes # (A) 2.17 X 10*3/uL (0.90-5.00); Lymphocytes % (A) 14.8 %; MCH 32.9 pg (27.0-32.0); MCHC 31.2 g/dL (32.0-37.0); MCV 105.6 fL (80.0-97.0); Monocytes # (A) 1.29 X 10*3/uL (0.20-1.00); Monocytes % (A) 8.8 %; Neutrophils # (A) 10.51 X 10*3/uL (1.80-7.70); Neutrophils % (A) 71.8 %; Platelet Count 442 X 10*3/uL (140-440); RBC 3.92 X 10*6/uL (4.10-5.20); RDW 15.9 % (11.5-14.5); WBC 14.64 X 10*3/uL (4.50-10.00)
[2021-05-06 09:53] LABS: African American GFR (CKD) 113.2 (60.0-200.0); BUN/Creat Ratio 36.17 Ratio (12.00-20.00); Blood Urea Nitrogen 20.8 mg/dL (9.0-27.0); Calcium 9.3 mg/dL (8.7-10.3); Carbon Dioxide 28.3 mmol/L (20.0-27.5); Chloride 103 mmol/L (96-109); Glucose 120 mg/dL (70-110); LDH 331 U/L (120-246); Non-African American GFR(CKD) 97.7 (60.0-200.0); Potassium 5.1 mmol/L (3.5-5.5); Sodium 141 mmol/L (135-145)
[2021-05-06 10:21] LABS: C Reactive Protein <0.30 mg/dL (0.00-0.80)
[2021-05-06 11:48] LABS: Glucose,Whole Blood 236 mg/dL (75-99)
[2021-05-06] MEDS: HYDROcodone/APAP 10-325MG 1 EACH TAB PO PRN ×2 (13:44→21:18)
--- NOTE | 2021-05-06 15:20 | P.PN ---
Subjective Progress Note Date: 05/06/21 On 05/06/2021, I'm seeing the patient for a follow-up. The patient is doing well. The patient was Hospital as for Coumadin kidney related pneumonia. The patient was requiring high flow oxygen. Initially she was on 100% nonrebreather facemask and during the course of her illness the patient required Airvo at high flow as much as 60 L with an FiO2 of 90%. Over the past week, the patient gradually improved and currently the patient is down to 7 L about 2 by nasal cannula. She is feeling well patient is less short of breath. She remains on Decadron 6 g IV every 24 hours. She is also on long-term and to coagulation with Eliquis 5 mg by mouth twice a day. No chest pain. No significant compl aints otherwise for now. The blood work shows a white cell count of 14.6 with a hemoglobin 12.9 and a platelet count of 442. Sodium is at 141 with a potassium of 5.1 in the chart of 102 with a bicarb of 28. LDH is down 31. CRP is negative. Pro-calcitonin level is at 0.04. The chest x-ray from today showing still diffuse bilateral pulmonary infiltrates. This is a 65-year-old female patient. The patient has been hospital for the past 12 days at least. The patient has obesity, diabetes mellitus, DVT, hypertension and hypothyroidism and hyperlipidemia. The patient also has previous history of DVT. Noted the patient was not accepted for COVID 19. She did receive monoclonal antibodies. Objective - Vital Signs Vital signs: Vital Signs Temp 97.4 F L 05/06/21 14:00 Pulse 87 05/06/21 14:00 Resp 19 05/06/21 14:00 BP 111/71 05/06/21 14:00 Pulse Ox 94 L 05/06/21 14:00 Intake & Output 05/05/21 05/06/21 05/06/21 18:59 06:59 18:59 Intake Total 1000 Balance 1000 Intake: Intake, IV Titration 1000 Amount Sodium Chloride 0.9% 1, 1000 000 ml @ 75 mls/hr IV . [id number] [facility] Rx#:[id number] Other: Voiding Method Bedside Commode Bedside Commode External Catheter # Voids 5 2 - Exam Physical Exam revealed a 65-year-old female in moderate respiratory distress, on 02 at 7 liters Head: Atraumatic normocephalic. HEENT:[Neck is supple.] [No neck masses.] [No thyromegaly.] [No JVD.] Chest: Metrical chest expansion crackles bilaterally more so on the left side.] Cardiac Exam: [Normal S1 and S2, no S3 gallop, no murmur.] Abdomen: [Soft, nontender, no megaly, no rebound, no guarding, normal bowel ronny nds.] Extremities: Chronic venous stasis changes and chronic bruising in lower extremities noted/chronic according to the patient. Patient stated that she bruises easily. Neurological Exam: Alert and oriented 2, poor memory, cannot give much information about her history of the present illness. Psychiatric: Depressed mood, appropriate affect, confused mental status. - Labs CBC & Chem 7: 05/06/21 05:11 05/06/21 05:11 Labs: Abnormal Lab Results - Last 24 Hours (Table) 05/05/21 05/05/21 05/06/21 Range/Units 16:47 20:25 05:11 WBC 14.64 H (4.50-10.00) X 10*3/uL RBC 3.92 L (4.10-5.20) X 10*6/uL MCV 105.6 H (80.0-97.0) fL MCH 32.9 H (27.0-32.0) pg MCHC 31.2 L (32.0-37.0) g/dL RDW 15.9 H (11.5-14.5) % Plt Count 442 H (140-440) X 10*3/uL Absolute Nucleated RBC 0.09 H (0.00-0.00) X 10*3/uL Immature Gran # 0.39 H (0.00-0.04) X 10*3/uL Neutrophils # 10.51 H (1.80-7.70) X 10*3/uL Monocytes # 1.29 H (0.20-1.00) X 10*3/uL NRBC/100 WBC Diff 0.6 H (0.0-0.0) /100 WBCS Carbon Dioxide (20.0-27.5) mmol/L Anion Gap (10.00-18.00) mmol/L BUN/Creatinine Ratio (12.00-20.00) Ratio Glucose (70-110) mg/dL POC Glucose (mg/dL) 302 H 206 H (75-99) mg/dL Lactate Dehydrogenase (120-246) U/L 05/06/21 05/06/21 05/06/21 Range/Units 05:11 07:36 11:47 WBC (4.50-10.00) X 10*3/uL RBC (4.10-5.20) X 10*6/uL MCV (80.0-97.0) fL MCH (27.0-32.0) pg MCHC (32.0-37.0) g/dL RDW (11.5-14.5) % Plt Count (140-440) X 10*3/uL Absolute Nucleated RBC (0.00-0.00) X 10*3/uL Immature Gran # (0.00-0.04) X 10*3/uL Neutrophils # (1.80-7.70) X 10*3/uL Monocytes # (0.20-1.00) X 10*3/uL NRBC/100 WBC Diff (0.0-0.0) /100 WBCS Carbon Dioxide 28.3 H (20.0-27.5) mmol/L Anion Gap 9.60 L (10.00-18.00) mmol/L BUN/Creatinine Ratio 36.17 H (12.00-20.00) Ratio Glucose 120 H (70-110) mg/dL POC Glucose (mg/dL) 113 H 236 H (75-99) mg/dL Lactate Dehydrogenase 331 H (120-246) U/L Microbiology - Last 24 Hours (Table) 05/03/21 16:48 Gram Stain - Final Sputum Sputum Culture - Final Staphylococcus aureus Assessment and Plan Plan: 1 Acute hypoxic and a story failure secondary to COVID-19 pneumonia the patient has not been vaccinated. The patient is currently on several liters of oxygen by nasal cannula. The patient showed slow with ongoing progress in terms of her oxygenation. Inflammatory markers are low. The patient is currently on 7 L O2 and the chest x-ray still showing diffuse bilateral pulmonary infiltrates, consistent with COVID 19 related pneumonia. 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 7 Type 2 diabetes. 8 Acute kidney injury, secondary to acute tubular necrosis hypotension and sepsis is strongly suspected, improving with fluids 9 History of hypothyroidism 10 Benign essential hypertension 11 hypotension, likely hypovolemic in nature , recovered and the patient is currently off pressors 12 Degenerative joint disease and history of MRSA infection 13 several possible cultures with gram-positive bacilli and gram positive cocci, and the cultures showed micrococcus and bacillus nonanthrax species and repeat cultures from 04/25/2021 showed no microbial growth. Pro-calcitonin level is low. No signs of any septicemia this point in time. Recommendation: Continue O2 at 7 L and gradually wean it down to his saturation above 90%. Continue the Decadron at a dose of 6 mg IV every 24 hours Continue the COVID-19 cocktail. Levemir insulin 20 units twice a day along with NovoLog sliding scale coverage. Continue Eliquis 5 mg twice a day Pro-calcitonin level is low IVF to KVO We'll continue to follow
[2021-05-06 16:49] LABS: Glucose,Whole Blood 153 mg/dL (75-99)
--- NOTE | 2021-05-06 17:49 | PN ---
PROGRESS NOTE DATE OF SERVICE: 05/06/2021 REASON FOR FOLLOWUP: 1. COVID-19 pneumonia. 2. Positive sputum culture with MSSA. INTERVAL HISTORY: The patient is afebrile. The patient is breathing comfortably. The patient is currently down to 6 L nasal cannula. The patient denies having any chest pain or shortness of breath. The patient' mentioned her cough has decreased in intensity. No vomiting. No abdominal pain or diarrhea. PHYSICAL EXAMINATION: Her blood pressure is 111/71 with a pulse of 87, temperature 97.4. She is 94% on 6 L nasal cannula. General description is a middle-aged female up in the bed in no distress. Respiratory system: Unlabored breathing, decreased intensity of breath sounds. No wheeze. Heart S1, S2. Regular rate and rhythm. Abdomen soft, no tenderness. LABS: Chest x-ray did show bilateral infiltrate. Patient has normal CRP, normal procalcitonin. DIAGNOSTIC IMPRESSION AND PLAN: 1. Patient with COVID-19 pneumonia in this patient who has shown overall clinical improvement. Patient to continue with Eliquis, dexamethasone, zinc and ascorbic acid off oxygen. 2. Patient with positive sputum culture with MSSA. Chest x-ray not showing any consolidation. Patient did have normal CRP and procalcitonin. More likely colonizer and not a pathogen; hence will hold on any systemic antibiotics. MMODL / IJN: [id number] /
--- NOTE | 2021-05-06 19:14 | P.PN ---
Subjective This is a pleasant 66 years old female with past medical history of diabetes mellitus, hypothyroidism, DVT, hypertension, hyperlipidemia, osteoarthritis. Presents with respiratory symptoms secondary to bilateral: Pneumonia and hypoxia, she's been evaluated and followed closely by pulmonary service, she is on multiple vitamins including vitamin C and D and dexamethasone. Also she is on home dose of Eliquis. And Pepcid. Besides that her oxygen requirements actually slightly improving down from 30 L down to 25 L and FiO2 of 40% with saturation of about 89%. Her sugar is slightly elevated more than 400, however she is requiring less treatment compared to home, at home she was on Lantus 30 units twice a day and here she is on Levemir 20 units at at bedtime, also she was on metformin 1000 twice a day, prednisone to restart her metformin at 500 mg twice a day, also she was on invokana at home which is not available at this facility. Continue with insulin sliding scale. Her BUN/creatinine ratio is trending up 31 up to 40, therefore we started the patient was 75 mL/h. Ejection fraction is 50-55%, ultrasound of the neck is negative for DVT. 05/05/2021 Patient breathing looks slightly improving, currently she is down to 7 L/m of oxygen supplementation. Her glucose also is better controlled after put her back on metformin 500 mg com pared to 1000 mg at home. We are going to increase it to 850 mg twice a day. Sputum culture is growing staph. Follow-up final result. She remains on dexamethasone, vitamins, home dose of Eliquis and normal saline at 75 mL/h 05/06/2021 Patient A chair comfortable not in distress, she feels more that she wants to go home however she still on 7 L/m this morning and it during the evening to 6 L/m, patient improving gradually but not ready for discharge and she agrees. Yesterday she had some tachycardia with heart rate up to 120, she was started on metoprolol 12.5 mg and heart rate today is in 80s. Blood pressure is acceptable. Her CBC is 14 K secondary to infection and steroids. CRP less than 0.3 and LDH is only slightly elevated at 331 and stable. Her chest x-ray showing diffuse bilateral infiltrates and sputum culture from going MSSA which is most likely contamination, patient does not need antibiotics. Her respiratory infection is improving on the current treatment without antibiotics. Sites forcalcitonin is normal at 0.04. She remains on dexamethasone, vitamin C and D Eliquis home dose of 5 mg. She was on normal saline at 75 mL/h however her urine improved and IV fluids were stopped. She continued on Levemir 20 units and metformin 850 mg twice a day was glucose is acceptably controlled Objective - Vital Signs Vital signs: Vital Signs Temp 98.2 F 05/06/21 08:00 Pulse 67 05/06/21 08:00 Resp 19 05/06/21 08:00 BP 102/56 05/06/21 08:00 Pulse Ox 94 L 05/06/21 08:00 Intake & Output 05/05/21 05/06/21 05/06/21 18:59 06:59 18:59 Intake Total 1000 Balance 1000 Intake: Intake, IV Titration 1000 Amount Sodium Chloride 0.9% 1, 1000 000 ml @ 75 mls/hr IV . [id number] [facility] Rx#:[id number] Other: Voiding Method Bedside Commode Bedside Commode External Catheter # Voids 5 2 - Exam -GENERAL: The patient is alert and oriented x3, not in any acute distress. Obese of 37.6 HEENT: Pupils are round and equally reacting to light. EOMI. No scleral icterus. No conjunctival pallor. Normocephalic, atraumatic. No pharyngeal erythema. No thyromegaly. CARDIOVASCULAR: S1 and S2 present. No murmurs, rubs, or gallops. PULMONARY: Chest is clear to auscultation, no wheezing or crackles. ABDOMEN: Soft, nontender, nondistended, normoactive bowel sounds. No palpable organomegaly. MUSCULOSKELETAL: No joint swelling or deformity. EXTREMITIES: No cyanosis, clubbing, or pedal edema. NEUROLOGICAL: Gross neurological examination did not reveal any focal deficits. SKIN: No rashes. no petechiae. - Labs CBC & Chem 7: 05/06/21 05:11 05/06/21 05:11 Labs: Abnormal Lab Results - Last 24 Hours (Table) 05/05/21 05/05/21 05/06/21 Range/Units 16:47 20:25 05:11 WBC 14.64 H (4.50-10.00) X 10*3/uL RBC 3.92 L (4.10-5.20) X 10*6/uL MCV 105.6 H (80.0-97.0) fL MCH 32.9 H (27.0-32.0) pg MCHC 31.2 L (32.0-37.0) g/dL RDW 15.9 H (11.5-14.5) % Plt Count 442 H (140-440) X 10*3/uL Absolute Nucleated RBC 0.09 H (0.00-0.00) X 10*3/uL Immature Gran # 0.39 H (0.00-0.04) X 10*3/uL Neutrophils # 10.51 H (1.80-7.70) X 10*3/uL Monocytes # 1.29 H (0.20-1.00) X 10*3/uL NRBC/100 WBC Diff 0.6 H (0.0-0.0) /100 WBCS Carbon Dioxide (20.0-27.5) mmol/L Anion Gap (10.00-18.00) mmol/L BUN/Creatinine Ratio (12.00-20.00) Ratio Glucose (70-110) mg/dL POC Glucose (mg/dL) 302 H 206 H (75-99) mg/dL Lactate Dehydrogenase (120-246) U/L 05/06/21 05/06/21 05/06/21 Range/Units 05:11 07:36 11:47 WBC (4.50-10.00) X 10*3/uL RBC (4.10-5.20) X 10*6/uL MCV (80.0-97.0) fL MCH (27.0-32.0) pg MCHC (32.0-37.0) g/dL RDW (11.5-14.5) % Plt Count (140-440) X 10*3/uL Absolute Nucleated RBC (0.00-0.00) X 10*3/uL Immature Gran # (0.00-0.04) X 10*3/uL Neutrophils # (1.80-7.70) X 10*3/uL Monocytes # (0.20-1.00) X 10*3/uL NRBC/100 WBC Diff (0.0-0.0) /100 WBCS Carbon Dioxide 28.3 H (20.0-27.5) mmol/L Anion Gap 9.60 L (10.00-18.00) mmol/L BUN/Creatinine Ratio 36.17 H (12.00-20.00) Ratio Glucose 120 H (70-110) mg/dL POC Glucose (mg/dL) 113 H 236 H (75-99) mg/dL Lactate Dehydrogenase 331 H (120-246) U/L Microbiology - Last 24 Hours (Table) 05/03/21 16:48 Gram Stain - Final Sputum Sputum Culture - Final Staphylococcus aureus Assessment and Plan Assessment: Bilateral Covid pneumonia Acute hypoxic respiratory failure Increased inflammatory markers Diabetes mellitus History of DVT on Eliquis Hypertension Hyperlipidemia Plan: This is a pleasant 66 years old female who presents with bilateral covid pneumonia Continue with dexamethasone Continue with vitamin C, vitamin D Pulmonary consult Start gentle hydration Resume metformin Labs and medication were reviewed.. Continue same treatment. Continue with symptomatic treatment. Resume home medication. Monitor lytes and vitals. DVT and GI prophylaxis. Further recommendationsas per clinical course of the patient DVT prophylaxis: Eliquis GI Prophylaxis: Pepcid PT/OT: Pending Prognosis is guarded
[2021-05-06 20:21] LABS: Glucose,Whole Blood 206 mg/dL (75-99)
[2021-05-06] MEDS: SYMBICORT 160-4.5 MCG INHALER INHALATION PRN (21:10)
[2021-05-07] MEDS: LEVOTHYROXINE 137 MCG TAB PO SCH (05:54)
[2021-05-07 06:57] LABS: Glucose,Whole Blood 150 mg/dL (75-99)
[2021-05-07] MEDS: polyethylene glycoL 3350 17 GM POWD.PACK PO SCH (07:09)
[2021-05-07] MEDS: METOPROLOL TARTRATE 12.5 MG TAB PO SCH (07:09)
[2021-05-07] MEDS: CHOLECALCIFEROL 25 MCG (1000 IU) TABLET PO SCH (07:09)
[2021-05-07] MEDS: DULoxetine HCL 60 MG CAPSULE.DR PO SCH (07:10)
[2021-05-07] MEDS: SENNOSIDES-DOCUSATE SODIUM 1 EACH TAB PO SCH (07:10)
[2021-05-07] MEDS: ATORVASTATIN 40 MG TAB PO SCH (07:10)
[2021-05-07] MEDS: ASCORBIC ACID 500 MG TAB PO SCH (07:10)
[2021-05-07] MEDS: APIXABAN 5 MG TAB PO SCH (07:10)
[2021-05-07] MEDS: CYCLOBENZAPRINE 10 MG TAB PO SCH (07:10)
[2021-05-07] MEDS: FOLIC ACID 1 MG TAB PO SCH (07:11)
[2021-05-07] MEDS: metFORMIN 850 MG TAB PO SCH (07:11)
[2021-05-07] MEDS: INSULIN DETEMIR (LEVEMIR) 100 UNIT/ML SYR SQ SCH (07:11)
[2021-05-07] MEDS: INSULIN ASPART (NovoLOG) 100 UNIT/ML VIAL SQ SCH ×2 (07:12→12:00)
[2021-05-07] MEDS: DEXAMETHASONE SOD PHOSPHATE 10 MG/ML 1 ML VIAL IVP SCH (07:12)
[2021-05-07] MEDS: NON FORMULARY DRUG (Canagliflozin [Invokana] 300 MG Tablet) PO SCH (07:18)
[2021-05-07] MEDS: ALBUTEROL HFA INHALER INHALATION SCH ×2 (07:25→12:08)
[2021-05-07] MEDS: SYMBICORT 160-4.5 MCG INHALER INHALATION PRN (07:25)
[2021-05-07 11:54] LABS: Glucose,Whole Blood 225 mg/dL (75-99)
[2021-05-07 15:04] VITALS: BP 128/68; PULSE 71; RESP 19; TEMP 98
--- NOTE | 2021-05-07 15:34 | P.PN ---
Subjective Progress Note Date: 05/07/21 05/07/2021, seeing the patient will follow-up. This is a a subcortical related pneumonia. The patient received monoclonal antibodies. Subsequently her condition progressed and the patient was hospitalized. The patient has multiple comorbidities including obesity, diabetes mellitus, hypertension, DVT, hypothyroidism and hyperlipidemia. She is known to have previous history of DVTs. The patient has not been vaccinated for Covid 19.. The patient remains on oxygen the patient is currently on oxygen at 4 L. Her FiO2 has been gradually weaned off. Note that the patient was quite ill. She was on 100% nonrebreather facemask. Following that the patient was placed on Airvo/high flow oxygen and she has been gradually being weaned off on the FiO2 and currently she is down to 4 L pH is doing well patient's, comfortable. She is afebrile patient's hemodynamically stable. Labs are available from today. Meanwhile, the patient remains on Decadron. I reduce the Decadron dose today to 4 mg IV every 24 hours. The patient remains on anticoagulation with Eliquis 5 mg by mouth twice a day. The patient is on vitamin C, vitamin D, zinc and the patient is also on Levemir insulin 20 units twice a day along with a sliding scale coverage. Doing well. No other new complaint otherwise for now. Objective - Vital Signs Vital signs: Vital Signs Temp 98.0 F 05/07/21 14:00 Pulse 71 05/07/21 14:00 Resp 19 05/07/21 14:00 BP 128/68 05/07/21 14:00 Pulse Ox 90 L 05/07/21 14:00 Intake & Output 05/06/21 05/07/21 05/07/21 18:59 06:59 18:59 Other: Voiding Method Bedside Commode Bedside Commode External Catheter External Catheter # Voids 3 - Exam Physical Exam revealed a 65-year-old female in moderate respiratory distress, on 02 at 4 liters Head: Atraumatic normocephalic. HEENT:[Neck is supple.] [No neck masses.] [No thyromegaly.] [No JVD.] Chest: Metrical chest expansion crackles bilaterally more so on the left side.] Cardiac Exam: [Normal S1 and S2, no S3 gallop, no murmur.] Abdomen: [Soft, nontender, no megaly, no rebound, no guarding, normal bowel sounds.] Extremities: Chronic venous stasis changes and chronic bruising in lower extremities noted/chronic according to the patient. Patient stated that she bruises easily. Neurological Exam: Alert and oriented 2, poor memory, cannot give much information about her history of the present illness. Psychiatric: Depressed mood, appropriate affect, confused mental status. - Labs CBC & Chem 7: 05/06/21 05:11 05/06/21 05:11 Labs: Abnormal Lab Results - Last 24 Hours (Table) 05/06/21 05/06/21 05/07/21 Range/Units 16:47 20:19 06:56 POC Glucose (mg/dL) 153 H 206 H 150 H (75-99) mg/dL 05/07/21 Range/Units 11:53 POC Glucose (mg/dL) 225 H (75-99) mg/dL Assessment and Plan Plan: 1 Acute hypoxic and a story failure secondary to COVID-19 pneumonia the patient has not been vaccinated. The patient is currently on several liters of oxygen by nasal cannula. The patient showed slow with ongoing progress in terms of her oxygenation. Inflammatory markers are low. The patient is currently on 4 L O2 and the chest x-ray still showing diffuse bilateral pulmonary infiltrates, consistent with COVID 19 related pneumonia. Noted the patient has a single Monocryl antibodies at time of admission. The patient has not been vaccinated pH is gradually improving and currently she is down to 4 L oxygen. 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 7 Type 2 diabetes. 8 Acute kidney injury, secondary to acute tubular necrosis hypotension and sepsis is strongly suspected, improving with fluids 9 History of hypothyroidism 10 Benign essential hypertension 11 hypotension, likely hypovolemic in nature , recovered and the patient is currently off pressors 12 Degenerative joint disease and history of MRSA infection 13 several possible cultures with gram-positive bacilli and gram positive cocci, and the cultures showed micrococcus and bacillus nonanthrax species and repeat cultures from 04/25/2021 showed no microbial growth. Pro-calcitonin level is low. No signs of any septicemia this point in time. Recommendation: Continue O2 at 4 L and gradually wean it down to his saturation above 90%. Continue the Decadron and drop the dose down to 4 mg IV every 24 hours Continue the COVID-19 cocktail. Levemir insulin 20 units twice a day along with NovoLog sliding scale coverage. Continue Eliquis 5 mg twice a day Pro-calcitonin level is low IVF to KVO We'll continue to follow Discharge planning is in progress.
--- NOTE | 2021-05-07 22:25 | P.DS ---
Providers Date of admission: 04/24/21 17:28 Attending physician: Marge Colby Consults: 04/24/21 17:28 Consult Physician Routine Consulting Provider: Fadi Joya Consult Reason/Comments: covid, hypoxia Do you want consulting provider notified?: Already Contacted 04/24/21 17:59 Consult Physician Routine Consulting Provider: Melissa Hanson Consult Reason/Comments: covid-remdesivir? Do you want consulting provider notified?: Yes Primary care physician: Amol Stovall Hospital Course: Diagnoses: Bilateral Covid pneumonia Acute hypoxic respiratory failure Increased inflammatory markers Diabetes mellitus History of DVT on Eliquis Hypertension Hyperlipidemia Hospital course This is a pleasant 66 years old female with past medical history of diabetes mellitus, hypothyroidism, DVT, hypertension, hyperlipidemia, osteoarthritis. Presents with respiratory symptoms secondary to bilateral covid Pneumonia and hypoxia, she's been evaluated and followed closely by pulmonary service, she is on multiple vitamins including vitamin C and D and dexamethasone. Also she is on home dose of Eliquis. And Pepcid. Besides that her oxygen requirements actually slightly improving down from 30 L down to 25 L and on the day of discharge she required only 4 L/m of oxygen via nasal cannula On the day of discharge her respiratory symptoms significantly improved with minimal dyspnea. No chest pain. No change in urine or bowel habits. No fever Was cleared for discharge by pulmonary service. Problems and management plan were discussed with the patient and he verbalized understanding and acceptance Patient was found stable and can be discharged home in dorsal prognosis however he needs follow-up as an outpatient. Patient was instructed to follow up with PCP Dr. Stovall within one week and patient agrees and she agrees with the appointments made for him on 05/13 Also patient was instructed to follow up with heading and priming tool setter Dr. Del Rio in 2-3 weeks and she agrees Physical exam Gen: patient is a AAOx3, no distress CVS: S1-S2, RRR, no murmur Lungs: B/L CTA, no wheezing Abdomen: soft, no distention, no tenderness, positive bowel sounds Extremity: no leg edema or induration Time spent more than 35 minutes Patient Condition at Discharge: Critical Plan - Discharge Summary Discharge Rx Participant: Yes New Discharge Prescriptions: New Sennosides-Docusate Sodium [Senokot-S] 2 each PO BID PRN 10 Days #20 tab PRN Reason: Constipation Dexamethasone [Decadron] 4 mg PO DAILY 2 Days #2 tablet Metoprolol Tartrate [Lopressor] 12.5 mg PO BID #60 tab Ascorbic Acid [Vitamin C] 1,000 mg PO DAILY #60 tab Continue Levothyroxine Sodium [Synthroid] 137 mcg PO DAILY DULoxetine HCL [Cymbalta] 60 mg PO DAILY Insulin Aspart (Niacinamide) [Fiasp 100 Unit/ml Flextouch Pen] See Protocol SQ AC-TID Cyclobenzaprine HCl 10 mg PO TID Budesonide-Formot 160-4.5 Mcg [Symbicort 160-4.5 Mcg Inhaler] 2 puff INHALATION RT-BID PRN PRN Reason: Shortness Of Breath Apixaban [Eliquis] 5 mg PO BID Folic Acid 1 mg PO DAILY Albuterol Sulfate [Albuterol Sulfate Hfa] 2 puff PO RT-Q6H PRN #1 each PRN Reason: Shortness Of Breath metFORMIN HCL [Glucophage] 1,000 mg PO BID HYDROcodone/APAP 10-325MG [[place] 10-325] 1 tab PO Q6HR PRN PRN Reason: Pain Atorvastatin [Lipitor] 40 mg PO DAILY Canagliflozin [Invokana] 300 mg PO DAILY Levothyroxine Sodium 68.5 mcg PO CHAMBERS Cholecalciferol [Vitamin D3 (25 Mcg = 1000 Iu)] 25 mcg PO DAILY #30 tab Changed Insulin Glargine,Hum.rec.anlog [Lantus Solostar Pen] 20 unit SQ BID #10 ml Discontinued Metoprolol Tartrate [Lopressor] 25 mg PO BID hydroCHLOROthiazide [Hydrodiuril] 25 mg PO DAILY amLODIPine BESYLATE/BENAZEPRIL [amLODIPine BESYLATE/BENAZEPRIL 10-20 mg] 1 cap PO DAILY Discharge Medication List DULoxetine HCL [Cymbalta] 60 mg PO DAILY 01/27/17 [History] Levothyroxine Sodium [Synthroid] 137 mcg PO DAILY 01/27/17 [History] Apixaban [Eliquis] 5 mg PO BID 04/24/21 [History] Atorvastatin [Lipitor] 40 mg PO DAILY 04/24/21 [History] Budesonide-Formot 160-4.5 Mcg [Symbicort 160-4.5 Mcg Inhaler] 2 puff INHALATION RT-BID PRN 04/24/21 [History] Canagliflozin [Invokana] 300 mg PO DAILY 04/24/21 [History] Cyclobenzaprine HCl 10 mg PO TID 04/24/21 [History] Folic Acid 1 mg PO DAILY 04/24/21 [History] HYDROcodone/APAP 10-325MG [[place] 10-325] 1 tab PO Q6HR PRN 04/24/21 [History] Insulin Aspart (Niacinamide) [Fiasp 100 Unit/ml Flextouch Pen] See Protocol SQ AC-TID 04/24/21 [History] Levothyroxine Sodium 68.5 mcg PO CHAMBERS 04/24/21 [History] metFORMIN HCL [Glucophage] 1,000 mg PO BID 04/24/21 [History] Albuterol Sulfate [Albuterol Sulfate Hfa] 2 puff PO RT-Q6H PRN #1 each 05/07/21 [Rx] Ascorbic Acid [Vitamin C] 1,000 mg PO DAILY #60 tab 05/07/21 [Rx] Cholecalciferol [Vitamin D3 (25 Mcg = 1000 Iu)] 25 mcg PO DAILY #30 tab 05/07/21 [Rx] Dexamethasone [Decadron] 4 mg PO DAILY 2 Days #2 tablet 05/07/21 [Rx] Insulin Glargine,Hum.rec.anlog [Lantus Solostar Pen] 20 unit SQ BID #10 ml 05/07/21 [Rx] Metoprolol Tartrate [Lopressor] 12.5 mg PO BID #60 tab 05/07/21 [Rx] Sennosides-Docusate Sodium [Senokot-S] 2 each PO BID PRN 10 Days #20 tab 05/07/21 [Rx] Follow up Appointment(s)/Referral(s): [facility] [NON-STAFF] - As Needed (oxygen) Care,[facility] [NON-STAFF] - As Needed Amol Stovall DO [Primary Care Provider] - 05/13/21 2:20 pm Patient Instructions/Handouts: Coronavirus Disease 2019 (COVID-19) Activity/Diet/Wound Care/Special Instructions: heart healthy diet . Low carbohydrate 1600 kcal per day activity is restricted till you see your doctor we recommend to check your glucose 4 times a day before each meal and at bed time , keep the results in a log book and bring it to your doctor upon your appointment date if your glucose is less than 70 or more than 400 then call 911 and come to emergency room Discharge Disposition: HOME WITH HOME HEALTH SERVICES
[2021-05-08] MEDS ORDERED: DEXAMETHASONE SOD PHOSPHATE 4 MG/ML 1 ML VIAL IVP SCH (09:00)
== END 2021-05-07 17:22 | disposition home health service (06) | DRG 177 ==
LOC: EC 12:09 → SUPCPDRO 12:09 → 2SICU 17:28 → 4SSUR 04-28 16:43
PROVIDERS: ADMIT Hospitalist; ATTEND Hospitalist
PROC: 5A0955A Assistance with Respiratory Ventilation, Greater than 96 Consecutive Hours, High Flow/Velocity Cannula (ICD-10-PCS; principal; 2021-04-24)
DX: U07.1 COVID-19 (principal); J12.82 Pneumonia due to coronavirus disease 2019; J96.01 Acute respiratory failure with hypoxia; N17.0 Acute kidney failure with tubular necrosis; D68.59 Other primary thrombophilia; E44.1 Mild protein-calorie malnutrition; E87.1 Hypo-osmolality and hyponatremia; E87.4 Mixed disorder of acid-base balance; J44.0 Chronic obstructive pulmonary disease with (acute) lower respiratory infection; E03.9 Hypothyroidism, unspecified; E11.9 Type 2 diabetes mellitus without complications; E66.9 Obesity, unspecified; Z68.37 Body mass index [BMI] 37.0-37.9, adult; J98.6 Disorders of diaphragm; I95.9 Hypotension, unspecified; E88.09 Other disorders of plasma-protein metabolism, not elsewhere classified; E78.5 Hyperlipidemia, unspecified; E86.0 Dehydration; E86.1 Hypovolemia; I10 Essential (primary) hypertension; I45.4 Nonspecific intraventricular block; M19.90 Unspecified osteoarthritis, unspecified site; Z79.01 Long term (current) use of anticoagulants; Z79.4 Long term (current) use of insulin; Z79.51 Long term (current) use of inhaled steroids; Z79.84 Long term (current) use of oral hypoglycemic drugs; Z79.890 Hormone replacement therapy; Z79.899 Other long term (current) drug therapy; Z82.49 Family history of ischemic heart disease and other diseases of the circulatory system; Z83.3 Family history of diabetes mellitus; Z86.14 Personal history of Methicillin resistant Staphylococcus aureus infection; Z86.718 Personal history of other venous thrombosis and embolism; Z90.710 Acquired absence of both cervix and uterus; Z98.890 Other specified postprocedural states; Z87.891 Personal history of nicotine dependence; Z83.2 Family history of diseases of the blood and blood-forming organs and certain disorders involving the immune mechanism; Z88.1 Allergy status to other antibiotic agents
CPT/HCPCS: 36415; 36600; 71045; 80048; 80053; 82805; 83605; 83615; 83735; 83880; 84145; 84484; 85025; 85379; 85610; 85730; 86140; 87040; 87070; 87077; 87186; 87205; 87635; 93005; 93306; 93970; 94640; 94760; 99291

== ENCOUNTER 2021-05-12 21:25 | Inpatient (IN) | payer MEDICARE, OTHER ==
[2021-05-12] MEDS ORDERED: KETOROLAC 15 MG/ML 1 ML VIAL IVP STA (21:54)
[2021-05-12] MEDS ORDERED: DEXAMETHASONE SOD PHOSPHATE 10 MG/ML 1 ML VIAL IVP STA (21:54)
[2021-05-12] MEDS ORDERED: IPRATROPIUM-ALBUTEROL 3 ML NEB INHALATION STA (21:54)
[2021-05-12] MEDS ORDERED: SODIUM CHLORIDE 0.9% 1,000 ML IV STA ×2 (21:54)
--- NOTE | 2021-05-12 22:28 | ED ---
Recheck HPI - General Chief Complaint: Shortness of Breath Stated Complaint: SOB Time Seen by Provider: 05/12/21 21:41 Source: patient, RN notes reviewed, old records reviewed Mode of arrival: EMS Limitations: no limitations - History of Present Illness Initial Comments: This is a 66-year-old female to the emergency room for evaluation. Patient was diagnosed with coronavirus about one month ago has had persistent weakness shortness of breath and believes currently she may have urinary tract infection with some dysuria. Patient is 5 L of oxygen at home which currently is giving her of pulse oxygenation of 90%. Patient denying any pain no chest pain. She does have again persistent and significant shortness of breath MD Complaint: abnormal lab (low pulse OX), needs IV antibiotics (may have UTI), other (persistent shortness of breath from COVID) Returns Today for: persistent/worsening pain related to initial visit Symptoms Since Prior Visit: worsening pain Context: planned re-check Associated Symptoms: fever, chills, shortness of breath, malaise, abdominal pain Treatments Prior to Arrival: other medications - Related Data Home Medications Medication Instructions Recorded Confirmed DULoxetine HCL [Cymbalta] 60 mg PO DAILY 01/27/17 05/12/21 Levothyroxine Sodium [Synthroid] 137 mcg PO DAILY 01/27/17 05/12/21 Apixaban [Eliquis] 5 mg PO BID 04/24/21 05/12/21 Atorvastatin [Lipitor] 40 mg PO HS 04/24/21 05/12/21 Budesonide-Formot 160-4.5 Mcg 2 puff INHALATION RT-BID PRN 04/24/21 05/12/21 [Symbicort 160-4.5 Mcg Inhaler] Canagliflozin [Invokana] 300 mg PO DAILY 04/24/21 05/12/21 Cyclobenzaprine HCl 10 mg PO TID 04/24/21 05/12/21 Folic Acid 1 mg PO DAILY 04/24/21 05/12/21 HYDROcodone/APAP 10-325MG [[place] 1 tab PO Q6HR PRN 04/24/21 05/12/21 10-325] Levothyroxine Sodium 68.5 mcg PO CHAMBERS 04/24/21 05/12/21 metFORMIN HCL [Glucophage] 1,000 mg PO BID 04/24/21 05/12/21 Insulin Glargine,Hum.rec.anlog 28 unit SQ BID 05/12/21 05/12/21 [Lantus Solostar Pen] Metoprolol Tartrate [Lopressor] 12.5 mg PO BID 05/12/21 05/12/21 Pyridoxine HCl (Vitamin B6) 100 mg PO DAILY 05/12/21 05/12/21 [Vitamin B-6] Sennosides-Docusate Sodium 2 tab PO BID PRN 05/12/21 05/12/21 [Senokot-S] Zinc 50 mg PO DAILY 05/12/21 05/12/21 amLODIPine BESYLATE/BENAZEPRIL 1 cap PO DAILY 05/12/21 05/12/21 [amLODIPine BESYLATE/BENAZEPRIL 10-20 MG] hydroCHLOROthiazide [Hydrodiuril] 25 mg PO DAILY 05/12/21 05/12/21 Previous Rx's Medication Instructions Recorded Albuterol Sulfate [Albuterol 2 puff PO RT-Q6H PRN #1 each 05/07/21 Sulfate Hfa] Ascorbic Acid [Vitamin C] 1,000 mg PO DAILY #60 tab 05/07/21 Cholecalciferol [Vitamin D3 (25 25 mcg PO DAILY #30 tab 05/07/21 Mcg = 1000 Iu)] Allergies Allergy/AdvReac Type Severity Reaction Status Date / Time cefazolin Allergy Severe Rash/Hives Verified 05/12/21 22:45 Review of Systems ROS Statement: Those systems with pertinent positive or pertinent negative responses have been documented in the HPI. ROS Other: All systems not noted in ROS Statement are negative. Past Medical History Past Medical History: Diabetes Mellitus, Deep Vein Thrombosis (DVT), Hyperlipidemia, Hypertension, Osteoarthritis (OA), Thyroid Disorder Additional Past Medical History / Comment(s): DVT L Leg History of Any Multi-Drug Resistant Organisms: MRSA Date of last positivie culture/infection: 01/27/17 MDRO Source:: blood Past Surgical History: Hysterectomy, Orthopedic Surgery Additional Past Surgical History / Comment(s): Rectocele;hand,ankle and knee surg.; Past Anesthesia/Blood Transfusion Reactions: No Reported Reaction Past Psychological History: No Psychological Hx Reported Past Alcohol Use History: Rare Past Drug Use History: None Reported - Past Family History Brother(s) Family Medical History: Deep Vein Thrombosis (DVT) Mother Family Medical History: Coronary Artery Disease (CAD) Father Family Medical History: Diabetes Mellitus General Exam General appearance: alert, anxious, lethargic, in distress Head exam: Present: atraumatic, normocephalic, normal inspection Eye exam: Present: normal appearance, PERRL, EOMI. Absent: scleral icterus, conjunctival injection, periorbital swelling ENT exam: Present: normal exam, mucous membranes dry Neck exam: Present: normal inspection. Absent: tenderness, meningismus, lymphadenopathy Respiratory exam: Present: respiratory distress, rhonchi, decreased breath sounds, prolonged expiratory. Absent: wheezes, rales, stridor Cardiovascular Exam: Present: normal rhythm, tachycardia, normal heart sounds. Absent: systolic murmur, diastolic murmur, rubs, gallop, clicks GI/Abdominal exam: Present: soft, normal bowel sounds. Absent: distended, tenderness, guarding, rebound, rigid Extremities exam: Present: normal inspection, full ROM, normal capillary refill. Absent: tenderness, pedal edema, joint swelling, calf tenderness Back exam: Present: normal inspection Neurological exam: Present: alert, oriented X3, CN II-XII intact Psychiatric exam: Present: normal affect, normal mood Skin exam: Present: warm, dry, intact, normal color. Absent: rash Course Vital Signs 05/12/21 05/12/21 05/12/21 21:58 22:05 22:09 Temperature 98.4 F Pulse Rate 104 H 87 88 Respiratory 18 Rate Blood Pressure 95/58 O2 Sat by Pulse 90 L Oximetry 05/12/21 22:43 Temperature Pulse Rate 102 H Respiratory 20 Rate Blood Pressure 105/55 O2 Sat by Pulse 90 L Oximetry - Reevaluation(s) Reevaluation #1: 05/12/21 22:28 Medical record is reviewed as well as recent hospital admission Reevaluation #2: 05/13/21 00:20 Patient is no significant improvement here in the emergency department Reevaluation #3: 05/13/21 00:20 Patient informed of results and questions answered - Consultations Consultation #1: spoke w [facility] who agrees to admission Medical Decision Making - Medical Decision Making 66 female with persistent hypoxia, on 5 L nasal cannula, also significant urinary tract infection weakness. Patient be admitted for both supportive care monitoring of pulse ox - Lab Data Result diagrams: 05/12/21 22:07 05/12/21 22:07 Lab Results 05/12/21 05/12/21 05/12/21 Range/Units 22:07 22:07 22:07 WBC 10.9 H (3.8-10.6) k/uL RBC 3.74 L (3.80-5.40) m/uL Hgb 12.7 (11.4-16.0) gm/dL Hct 39.1 (34.0-46.0) % MCV 104.5 H (80.0-100.0) fL MCH 33.9 (25.0-35.0) pg MCHC 32.4 (31.0-37.0) g/dL RDW 16.7 H (11.5-15.5) % Plt Count 194 (150-450) k/uL MPV 8.9 Neutrophils % 87 % Lymphocytes % 5 % Monocytes % 5 % Eosinophils % 1 % Basophils % 0 % Neutrophils # 9.5 H (1.3-7.7) k/uL Lymphocytes # 0.6 L (1.0-4.8) k/uL Monocytes # 0.6 (0-1.0) k/uL Eosinophils # 0.1 (0-0.7) k/uL Basophils # 0.0 (0-0.2) k/uL Anisocytosis Slight Macrocytosis Moderate PT 12.2 H (9.0-12.0) sec INR 1.2 H (<1.2) APTT 26.0 (22.0-30.0) sec D-Dimer 0.59 (<0.60) mg/L FEU Sodium 133 L (137-145) mmol/L Potassium 4.1 (3.5-5.1) mmol/L Chloride 99 (98-107) mmol/L Carbon Dioxide 30 (22-30) mmol/L Anion Gap 4 mmol/L BUN 36 H (7-17) mg/dL Creatinine 0.72 (0.52-1.04) mg/dL Est GFR (CKD-EPI)AfAm >90 (>60 ml/min/1.73 sqM) Est GFR (CKD-EPI)NonAf 90 (>60 ml/min/1.73 sqM) Glucose 169 H (74-99) mg/dL Plasma Lactic Acid Amrik (0.7-2.0) mmol/L Calcium 8.7 (8.4-10.2) mg/dL Phosphorus 3.3 (2.5-4.5) mg/dL Magnesium 1.8 (1.6-2.3) mg/dL Total Bilirubin 1.6 H (0.2-1.3) mg/dL AST 22 (14-36) U/L ALT 18 (4-34) U/L Alkaline Phosphatase 66 (38-126) U/L Lactate Dehydrogenase 731 H (313-618) U/L Troponin I (0.000-0.034) ng/mL C-Reactive Protein 20.1 H (<1.0) mg/dL NT-Pro-B Natriuret Pep pg/mL Total Protein 5.3 L (6.3-8.2) g/dL Albumin 2.8 L (3.5-5.0) g/dL Urine Color Urine Appearance (Clear) Urine pH (5.0-8.0) Ur Specific [place] (1.001-1.035) Urine Protein (Negative) Urine Glucose (UA) (Negative) Urine Ketones (Negative) Urine Blood (Negative) Urine Nitrite (Negative) Urine Bilirubin (Negative) Urine Urobilinogen (<2.0) mg/dL Ur Leukocyte Esterase (Negative) Urine RBC (0-5) /hpf Urine WBC (0-5) /hpf Urine WBC Clumps (None) /hpf Ur Squamous Epith Cells (0-4) /hpf Urine Bacteria (None) /hpf Urine Mucus (None) /hpf 05/12/21 05/12/21 05/12/21 Range/Units 22:07 22:07 22:07 WBC (3.8-10.6) k/uL RBC (3.80-5.40) m/uL Hgb (11.4-16.0) gm/dL Hct (34.0-46.0) % MCV (80.0-100.0) fL MCH (25.0-35.0) pg MCHC (31.0-37.0) g/dL RDW (11.5-15.5) % Plt Count (150-450) k/uL MPV Neutrophils % % Lymphocytes % % Monocytes % % Eosinophils % % Basophils % % Neutrophils # (1.3-7.7) k/uL Lymphocytes # (1.0-4.8) k/uL Monocytes # (0-1.0) k/uL Eosinophils # (0-0.7) k/uL Basophils # (0-0.2) k/uL Anisocytosis Macrocytosis PT (9.0-12.0) sec INR (<1.2) APTT (22.0-30.0) sec D-Dimer (<0.60) mg/L FEU Sodium (137-145) mmol/L Potassium (3.5-5.1) mmol/L Chloride (98-107) mmol/L Carbon Dioxide (22-30) mmol/L Anion Gap mmol/L BUN (7-17) mg/dL Creatinine (0.52-1.04) mg/dL Est GFR (CKD-EPI)AfAm (>60 ml/min/1.73 sqM) Est GFR (CKD-EPI)NonAf (>60 ml/min/1.73 sqM) Glucose (74-99) mg/dL Plasma Lactic Acid Amrik 1.4 (0.7-2.0) mmol/L Calcium (8.4-10.2) mg/dL Phosphorus (2.5-4.5) mg/dL Magnesium (1.6-2.3) mg/dL Total Bilirubin (0.2-1.3) mg/dL AST (14-36) U/L ALT (4-34) U/L Alkaline Phosphatase (38-126) U/L Lactate Dehydrogenase (313-618) U/L Troponin I <0.012 (0.000-0.034) ng/mL C-Reactive Protein (<1.0) mg/dL NT-Pro-B Natriuret Pep pg/mL Total Protein (6.3-8.2) g/dL Albumin (3.5-5.0) g/dL Urine Color Yellow Urine Appearance Turbid H (Clear) Urine pH 6.5 (5.0-8.0) Ur Specific [place] 1.014 (1.001-1.035) Urine Protein 1+ H (Negative) Urine Glucose (UA) 4+ H (Negative) Urine Ketones Negative (Negative) Urine Blood Moderate H (Negative) Urine Nitrite Positive H (Negative) Urine Bilirubin Negative (Negative) Urine Urobilinogen <2.0 (<2.0) mg/dL Ur Leukocyte Esterase Large H (Negative) Urine RBC 4 (0-5) /hpf Urine WBC >182 H (0-5) /hpf Urine WBC Clumps Many H (None) /hpf Ur Squamous Epith Cells 2 (0-4) /hpf Urine Bacteria Few H (None) /hpf Urine Mucus Rare H (None) /hpf 05/12/21 Range/Units 22:07 WBC (3.8-10.6) k/uL RBC (3.80-5.40) m/uL Hgb (11.4-16.0) gm/dL Hct (34.0-46.0) % MCV (80.0-100.0) fL MCH (25.0-35.0) pg MCHC (31.0-37.0) g/dL RDW (11.5-15.5) % Plt Count (150-450) k/uL MPV Neutrophils % % Lymphocytes % % Monocytes % % Eosinophils % % Basophils % % Neutrophils # (1.3-7.7) k/uL Lymphocytes # (1.0-4.8) k/uL Monocytes # (0-1.0) k/uL Eosinophils # (0-0.7) k/uL Basophils # (0-0.2) k/uL Anisocytosis Macrocytosis PT (9.0-12.0) sec INR (<1.2) APTT (22.0-30.0) sec D-Dimer (<0.60) mg/L FEU Sodium (137-145) mmol/L Potassium (3.5-5.1) mmol/L Chloride (98-107) mmol/L Carbon Dioxide (22-30) mmol/L Anion Gap mmol/L BUN (7-17) mg/dL Creatinine (0.52-1.04) mg/dL Est GFR (CKD-EPI)AfAm (>60 ml/min/1.73 sqM) Est GFR (CKD-EPI)NonAf (>60 ml/min/1.73 sqM) Glucose (74-99) mg/dL Plasma Lactic Acid Amrik (0.7-2.0) mmol/L Calcium (8.4-10.2) mg/dL Phosphorus (2.5-4.5) mg/dL Magnesium (1.6-2.3) mg/dL Total Bilirubin (0.2-1.3) mg/dL AST (14-36) U/L ALT (4-34) U/L Alkaline Phosphatase (38-126) U/L Lactate Dehydrogenase (313-618) U/L Troponin I (0.000-0.034) ng/mL C-Reactive Protein (<1.0) mg/dL NT-Pro-B Natriuret Pep 348 pg/mL Total Protein (6.3-8.2) g/dL Albumin (3.5-5.0) g/dL Urine Color Urine Appearance (Clear) Urine pH (5.0-8.0) Ur Specific [place] (1.001-1.035) Urine Protein (Negative) Urine Glucose (UA) (Negative) Urine Ketones (Negative) Urine Blood (Negative) Urine Nitrite (Negative) Urine Bilirubin (Negative) Urine Urobilinogen (<2.0) mg/dL Ur Leukocyte Esterase (Negative) Urine RBC (0-5) /hpf Urine WBC (0-5) /hpf Urine WBC Clumps (None) /hpf Ur Squamous Epith Cells (0-4) /hpf Urine Bacteria (None) /hpf Urine Mucus (None) /hpf - EKG Data -: EKG Interpreted by Me (EKG shows nsr 97 CA 126 QRS 136 QTc 485) - Radiology Data Radiology results: report reviewed (CT chest negative for PE positive for coronavirus type pneumonia), image reviewed Critical Care Time Critical Care Time: Yes Total Critical Care Time: 31 Disposition Clinical Impression: UTI (urinary tract infection), Dehydration, Hypoxia Disposition: ADMITTED IP TO THIS HOSP Condition: Serious Is patient prescribed a controlled substance at d/c from ED?: No Referrals: Amol Stovall DO [Primary Care Provider] - 1-2 days
[2021-05-12 22:53] LABS: Sodium 133 mmol/L (137-145)
[2021-05-12 22:57] LABS: ALT 18 U/L (4-34); AST 22 U/L (14-36); African American GFR (CKD) >90 (>60 ml/min/1.73 sqM); Albumin 2.8 g/dL (3.5-5.0); Alkaline Phosphatase 66 U/L (38-126); Anion Gap 4 mmol/L; Blood Urea Nitrogen 36 mg/dL (7-17); Calcium 8.7 mg/dL (8.4-10.2); Carbon Dioxide 30 mmol/L (22-30); Chloride 99 mmol/L (98-107); Glucose 169 mg/dL (74-99); LDH 731 U/L (313-618); Magnesium 1.8 mg/dL (1.6-2.3); Non-African American GFR(CKD) 90 (>60 ml/min/1.73 sqM); Phosphorus 3.3 mg/dL (2.5-4.5); Potassium 4.1 mmol/L (3.5-5.1); Total Bilirubin 1.6 mg/dL (0.2-1.3); Total Protein 5.3 g/dL (6.3-8.2)
[2021-05-12 22:58] LABS: Anisocytosis Slight; Basophils % (A) 0 %; Eosinophils # (A) 0.1 k/uL (0-0.7); Eosinophils % (A) 1 %; HCT 39.1 % (34.0-46.0); HGB 12.7 gm/dL (11.4-16.0); INR 1.2 (<1.2); Lymphocytes # (A) 0.6 k/uL (1.0-4.8); Lymphocytes % (A) 5 %; MCH 33.9 pg (25.0-35.0); MCHC 32.4 g/dL (31.0-37.0); MCV 104.5 fL (80.0-100.0); Macrocytosis Moderate; Mean Platelet Volume 8.9; Monocytes # (A) 0.6 k/uL (0-1.0); Monocytes % (A) 5 %; Neutrophils # (A) 9.5 k/uL (1.3-7.7); Neutrophils % (A) 87 %; Platelet Count 194 k/uL (150-450); Prothrombin Time 12.2 sec (9.0-12.0); RBC 3.74 m/uL (3.80-5.40); RDW 16.7 % (11.5-15.5); WBC 10.9 k/uL (3.8-10.6)
[2021-05-12 23:09] LABS: C Reactive Protein 20.1 mg/dL (<1.0)
[2021-05-12 23:10] LABS: Appearance,Urine Turbid (Clear); Bacteria,Urine Few /hpf; Bilirubin,Urine Negative (Negative); Blood,Urine Moderate (Negative); Color,Urine Yellow; Glucose,Urine (UA) 4+ (Negative); Ketones,Urine Negative (Negative); Leukocyte Esterase,Urine Large (Negative); Mucus,Urine Rare /hpf; Nitrite,Urine Positive (Negative); PH, Urine 6.5 (5.0-8.0); Protein,Urine 1+ (Negative); RBC,Urine 4 /hpf (0-5); Specific Gravity,Urine 1.014 (1.001-1.035); Squamous Epithelial Cell,Urine 2 /hpf (0-4); Urobilinogen,Urine <2.0 mg/dL (<2.0); WBC,Urine >182 /hpf (0-5)
[2021-05-12] MEDS ORDERED: LEVOFLOXACIN 750MG-D5W PMX 750 MG in DEXTROSE/WATER 1 150ML.BAG IVPB STA (23:39)
--- NOTE | 2021-05-13 00:05 | CT ---
EXAMINATION TYPE: CT angio chest DATE OF EXAM: 05/12/2021 COMPARISON: None HISTORY: R/O PE, Chest Pain CT DLP: 467.30 mGycm Automated exposure control for dose reduction was used. CONTRAST: Performed with IV Contrast, patient injected with 70 mL of Isovue 370. There are Three-D postprocessed images. There is extensive patchy infiltrates in both lungs. This is predominantly airspace consolidation. Th ere is no mediastinal adenopathy. There are no hilar masses. There is no evidence of filling defect i n the pulmonary arteries. There is no pleural effusion. There is some spurring in the thoracic spine. Sternum is intact. The upper abdominal soft tissues are intact. Bile ducts are nondilated. IMPRESSION: No evidence of pulmonary embolism. Extensive bilateral pulmonary infiltrates consistent with multifocal pneumonia.
[2021-05-13] MEDS ORDERED: MORPHINE SULFATE 4 MG/ML SYRINGE IV PRN (00:17)
[2021-05-13] MEDS ORDERED: ONDANSETRON 4 MG/2 ML VIAL IVP PRN (00:17)
[2021-05-13] MEDS ORDERED: IBUPROFEN 400 MG TAB PO PRN (00:17)
[2021-05-13] MEDS ORDERED: NALOXONE 0.4 MG/ML 1 ML VIAL IV PRN (00:17)
[2021-05-13] MEDS ORDERED: ACETAMINOPHEN TAB 325 MG TAB PO PRN (00:17)
[2021-05-13] MEDS ORDERED: SODIUM CHLORIDE 0.9% 1,000 ML IV ONE (11:44)
--- NOTE | 2021-05-13 11:46 | P.HPIM ---
History of Present Illness This is a pleasant 66 years old female with past medical history of Diabetes Mellitus, Deep Vein Thrombosis on Eliquis, Hyperlipidemia, Hypertension, Osteoarthritis, hypothyroidism Was recently discharged from hospital about 5 days ago on 05/07 for bilateral, with pneumonia and hypoxia, she was discharged on 4-5 L of oxygen Presents with generalized weakness and hypoxia for 3 days Patient presents because of generalized weakness and associated with dysuria and increased frequency. Her dyspnea is at the same level when we discharged her last time as well as her oxygen level. Patient heart rate is 75, blood pressure was low 82/54 currently is better 101/59 she is saturating 94% on 5 feet oxygen via nasal cannula. Showing mild leukocytosis of 10.9, rest of the CBC is unremarkable, INR is 1.2, d-dimer 0.5, sodium 133, rest of BMP and liver enzymes are unremarkable. LDH is slightly elevated at 731 and CRP is 20.1. Urinalysis is suspicious for infection CTA of the chest: Showing no evidence of pulmonary embolism, extensive bilateral pulmonary infiltrates consistent with multifocal pneumonia. EKG showing normal sinus rhythm at 97 with right bundle branch block and QTC 485 In the emergency room she received dexamethasone, Levaquin and normal saline. Review of Systems CONSTITUTIONAL: No fever, no malaise, no fatigue. HEENT: No recent visual problems or hearing problems. Denied any sore throat. CARDIOVASCULAR: No orthopnea, PND, no palpitations, no syncope. PULMONARY: No chest wall tenderness, no hemoptysis. GASTROINTESTINAL: No diarrhea, no nausea, no vomiting, no abdominal pain. Normoactive bowel sounds. NEUROLOGICAL: No headaches, no weakness, no numbness. HEMATOLOGICAL: Denies any bleeding or petechiae. GENITOURINARY: As above MUSCULOSKELETAL/RHEUMATOLOGICAL: Denies any joint pain, swelling, or any muscle pain. ENDOCRINE: Denies any polyuria or polydipsia. Past Medical History Past Medical History: Diabetes Mellitus, Deep Vein Thrombosis (DVT), Hyperlipidemia, Hypertension, Osteoarthritis (OA), Thyroid Disorder Additional Past Medical History / Comment(s): DVT L Leg History of Any Multi-Drug Resistant Organisms: MRSA Date of last positivie culture/infection: 01/27/17 MDRO Source:: blood Past Surgical History: Hysterectomy, Orthopedic Surgery Additional Past Surgical History / Comment(s): Rectocele;hand,ankle and knee surg.; Past Anesthesia/Blood Transfusion Reactions: No Reported Reaction Past Psychological History: No Psychological Hx Reported Past Alcohol Use History: Rare Past Drug Use History: None Reported - Past Family History Brother(s) Family Medical History: Deep Vein Thrombosis (DVT) Mother Family Medical History: Coronary Artery Disease (CAD) Father Family Medical History: Diabetes Mellitus Medications and Allergies Home Medications Medication Instructions Recorded Confirmed Type DULoxetine HCL [Cymbalta] 60 mg PO DAILY 01/27/17 05/12/21 History Levothyroxine Sodium [Synthroid] 137 mcg PO DAILY 01/27/17 05/12/21 History Apixaban [Eliquis] 5 mg PO BID 04/24/21 05/12/21 History Atorvastatin [Lipitor] 40 mg PO HS 04/24/21 05/12/21 History Budesonide-Formot 160-4.5 Mcg 2 puff INHALATION RT-BID PRN 04/24/21 05/12/21 History [Symbicort 160-4.5 Mcg Inhaler] Canagliflozin [Invokana] 300 mg PO DAILY 04/24/21 05/12/21 History Cyclobenzaprine HCl 10 mg PO TID 04/24/21 05/12/21 History Folic Acid 1 mg PO DAILY 04/24/21 05/12/21 History HYDROcodone/APAP 10-325MG [[place] 1 tab PO Q6HR PRN 04/24/21 05/12/21 History 10-325] Levothyroxine Sodium 68.5 mcg PO CHAMBERS 04/24/21 05/12/21 History metFORMIN HCL [Glucophage] 1,000 mg PO BID 04/24/21 05/12/21 History Albuterol Sulfate [Albuterol 2 puff PO RT-Q6H PRN #1 each 05/07/21 05/12/21 Rx Sulfate Hfa] Ascorbic Acid [Vitamin C] 1,000 mg PO DAILY #60 tab 05/07/21 05/12/21 Rx Cholecalciferol [Vitamin D3 (25 25 mcg PO DAILY #30 tab 05/07/21 05/12/21 Rx Mcg = 1000 Iu)] Insulin Glargine,Hum.rec.anlog 28 unit SQ BID 05/12/21 05/12/21 History [Lantus Solostar Pen] Metoprolol Tartrate [Lopressor] 12.5 mg PO BID 05/12/21 05/12/21 History Pyridoxine HCl (Vitamin B6) 100 mg PO DAILY 05/12/21 05/12/21 History [Vitamin B-6] Sennosides-Docusate Sodium 2 tab PO BID PRN 05/12/21 05/12/21 History [Senokot-S] Zinc 50 mg PO DAILY 05/12/21 05/12/21 History amLODIPine BESYLATE/BENAZEPRIL 1 cap PO DAILY 05/12/21 05/12/21 History [amLODIPine BESYLATE/BENAZEPRIL 10-20 MG] hydroCHLOROthiazide [Hydrodiuril] 25 mg PO DAILY 05/12/21 05/12/21 History Allergies Allergy/AdvReac Type Severity Reaction Status Date / Time cefazolin Allergy Severe Rash/Hives Verified 05/12/21 22:45 Physical Exam Vitals: Vital Signs Temp Pulse Resp BP Pulse Ox 05/13/21 03:32 75 22 101/59 94 L 05/13/21 03:00 81 20 82/54 94 L 05/12/21 22:43 102 H 20 105/55 90 L 05/12/21 22:09 88 05/12/21 22:05 87 05/12/21 21:58 98.4 F 104 H 18 95/58 90 L Intake and Output 05/12/21 05/13/21 05/13/21 22:59 06:59 14:59 Other: Weight 90.718 kg GENERAL: The patient is alert and oriented x3, not in any acute distress. Well developed, well nourished. -HEENT: Pupils are round and equally reacting to light. EOMI. No scleral icterus. No conjunctival pallor. Normocephalic, atraumatic. No pharyngeal erythema. No thyromegaly. Dry mucous membranes CARDIOVASCULAR: S1 and S2 present. No murmurs, rubs, or gallops. PULMONARY: Chest is clear to auscultation, no wheezing or crackles. -ABDOMEN: Soft, nontender, nondistended, normoactive bowel sounds. No palpable organomegaly. Suprapubic tenderness MUSCULOSKELETAL: No joint swelling or deformity. EXTREMITIES: No cyanosis, clubbing, or pedal edema. NEUROLOGICAL: Gross neurological examination did not reveal any focal deficits. SKIN: No rashes. No petechiae Results CBC & Chem 7: 01/16/22 22:07 05/12/21 22:07 Labs: Abnormal Lab Results - Last 24 Hours (Table) 05/12/21 05/12/21 05/12/21 Range/Units 22:07 22:07 22:07 WBC 10.9 H (3.8-10.6) k/uL RBC 3.74 L (3.80-5.40) m/uL MCV 104.5 H (80.0-100.0) fL RDW 16.7 H (11.5-15.5) % Neutrophils # 9.5 H (1.3-7.7) k/uL Lymphocytes # 0.6 L (1.0-4.8) k/uL PT 12.2 H (9.0-12.0) sec INR 1.2 H (<1.2) Sodium 133 L (137-145) mmol/L BUN 36 H (7-17) mg/dL Glucose 169 H (74-99) mg/dL Total Bilirubin 1.6 H (0.2-1.3) mg/dL Lactate Dehydrogenase 731 H (313-618) U/L C-Reactive Protein 20.1 H (<1.0) mg/dL Total Protein 5.3 L (6.3-8.2) g/dL Albumin 2.8 L (3.5-5.0) g/dL Urine Appearance (Clear) Urine Protein (Negative) Urine Glucose (UA) (Negative) Urine Blood (Negative) Urine Nitrite (Negative) Ur Leukocyte Esterase (Negative) Urine WBC (0-5) /hpf Urine WBC Clumps (None) /hpf Urine Bacteria (None) /hpf Urine Mucus (None) /hpf 05/12/21 Range/Units 22:07 WBC (3.8-10.6) k/uL RBC (3.80-5.40) m/uL MCV (80.0-100.0) fL RDW (11.5-15.5) % Neutrophils # (1.3-7.7) k/uL Lymphocytes # (1.0-4.8) k/uL PT (9.0-12.0) sec INR (<1.2) Sodium (137-145) mmol/L BUN (7-17) mg/dL Glucose (74-99) mg/dL Total Bilirubin (0.2-1.3) mg/dL Lactate Dehydrogenase (313-618) U/L C-Reactive Protein (<1.0) mg/dL Total Protein (6.3-8.2) g/dL Albumin (3.5-5.0) g/dL Urine Appearance Turbid H (Clear) Urine Protein 1+ H (Negative) Urine Glucose (UA) 4+ H (Negative) Urine Blood Moderate H (Negative) Urine Nitrite Positive H (Negative) Ur Leukocyte Esterase Large H (Negative) Urine WBC >182 H (0-5) /hpf Urine WBC Clumps Many H (None) /hpf Urine Bacteria Few H (None) /hpf Urine Mucus Rare H (None) /hpf Assessment and Plan Assessment: Acute urinary tract infection Dehydration and hypotension Ongoing Bilateral Covid pneumonia Acute hypoxic respiratory failure Increased inflammatory markers Diabetes mellitus History of DVT on Eliquis Hypertension Hyperlipidemia Plan: This is a pleasant 66 years old female who presents with bilateral covid pneumonia and urinary tract infection continue with Levaquin and follow-up urine culture Continue with dexamethasone Continue with vitamin C, vitamin D Continue with IV hydration 1 L of normal saline bolus Resume metformin Labs and medication were reviewed.. Continue same treatment. Continue with symptomatic treatment. Resume home medication. Monitor lytes and vitals. DVT and GI prophylaxis. Further recommendations depends on the clinical course of the patient DVT prophylaxis:Eliquis GI Prophylaxis: Pepcid PT/OT: Pending Prognosis is guarded
[2021-05-13] MEDS ORDERED: SENNOSIDES-DOCUSATE SODIUM 1 EACH TAB PO PRN (11:47)
[2021-05-13] MEDS ORDERED: SYMBICORT 160-4.5 MCG INHALER INHALATION PRN (11:47)
[2021-05-13 11:56] LABS: Glucose,Whole Blood 177 mg/dL (75-99)
[2021-05-13] MEDS: INSULIN ASPART (NovoLOG) 100 UNIT/ML VIAL SQ SCH ×3 (12:42→20:56)
[2021-05-13] MEDS: ASCORBIC ACID 500 MG TAB PO SCH (12:48)
[2021-05-13] MEDS: ZINC SULFATE 220 MG CAP PO SCH (12:48)
[2021-05-13] MEDS: CHOLECALCIFEROL 25 MCG (1000 IU) TABLET PO SCH (12:48)
[2021-05-13] MEDS: CYCLOBENZAPRINE 10 MG TAB PO SCH ×2 (15:27→20:36)
[2021-05-13] MEDS: HYDROcodone/APAP 10-325MG 1 EACH TAB PO PRN (15:47)
[2021-05-13 17:03] LABS: Glucose,Whole Blood 212 mg/dL (75-99)
[2021-05-13] MEDS: ATORVASTATIN 40 MG TAB PO SCH (20:36)
[2021-05-13] MEDS: APIXABAN 5 MG TAB PO SCH (20:36)
[2021-05-13 20:47] LABS: Glucose,Whole Blood 334 mg/dL (75-99)
[2021-05-13] MEDS: LEVOFLOXACIN 750MG-D5W PMX 750 MG in DEXTROSE/WATER 1 150ML.BAG IVPB SCH (23:50)
[2021-05-14] MEDS: HYDROcodone/APAP 10-325MG 1 EACH TAB PO PRN ×2 (02:01→20:49)
[2021-05-14] MEDS: LEVOTHYROXINE 137 MCG TAB PO SCH (06:03)
[2021-05-14 07:12] LABS: Glucose,Whole Blood 160 mg/dL (75-99)
[2021-05-14] MEDS: CYCLOBENZAPRINE 10 MG TAB PO SCH ×3 (08:11→20:46)
[2021-05-14] MEDS: ZINC SULFATE 220 MG CAP PO SCH (08:11)
[2021-05-14] MEDS: CHOLECALCIFEROL 25 MCG (1000 IU) TABLET PO SCH (08:11)
[2021-05-14] MEDS: FOLIC ACID 1 MG TAB PO SCH (08:11)
[2021-05-14] MEDS: hydroCHLOROthiazide 25 MG TAB PO SCH (08:11)
[2021-05-14] MEDS: APIXABAN 5 MG TAB PO SCH ×2 (08:11→20:46)
[2021-05-14] MEDS: INSULIN ASPART (NovoLOG) 100 UNIT/ML VIAL SQ SCH ×4 (08:11→20:46)
[2021-05-14] MEDS: DULoxetine HCL 60 MG CAPSULE.DR PO SCH (08:11)
[2021-05-14] MEDS: ASCORBIC ACID 500 MG TAB PO SCH (08:11)
[2021-05-14] MEDS: PYRIDOXINE 50 MG TAB PO SCH (08:13)
[2021-05-14 09:03] LABS: Basophils # (A) 0.03 X 10*3/uL (0.00-0.10); Basophils % (A) 0.3 %; Eosinophils # (A) 0.02 X 10*3/uL (0.04-0.35); Eosinophils % (A) 0.2 %; HCT 33.8 % (37.2-46.3); HGB 10.9 g/dL (12.0-15.0); Lymphocytes # (A) 0.92 X 10*3/uL (0.90-5.00); MCH 32.7 pg (27.0-32.0); MCHC 32.2 g/dL (32.0-37.0); MCV 101.5 fL (80.0-97.0); Mean Platelet Volume 11.7 fL (9.5-12.2); Monocytes # (A) 0.81 X 10*3/uL (0.20-1.00); Neutrophils # (A) 9.56 X 10*3/uL (1.80-7.70); Neutrophils % (A) 83.2 %; Platelet Count 254 X 10*3/uL (140-440); RBC 3.33 X 10*6/uL (4.10-5.20); RDW 15.9 % (11.5-14.5); WBC 11.49 X 10*3/uL (4.50-10.00)
[2021-05-14 09:54] LABS: Albumin 2.9 g/dL (3.8-4.9); Albumin/Globulin Ratio 1.48 (1.60-3.17); Anion Gap 14.1 mmol/L (10.00-18.00); BUN/Creat Ratio 50.07 Ratio (12.00-20.00); Blood Urea Nitrogen 36.5 mg/dL (9.0-27.0); Calcium 8.6 mg/dL (8.7-10.3); Carbon Dioxide 25.2 mmol/L (20.0-27.5); Non-African American GFR(CKD) 87.2 (60.0-200.0); Potassium 4.3 mmol/L (3.5-5.5); Total Bilirubin 0.9 mg/dL (0.30-1.20); Total Protein 4.9 g/dL (6.2-8.2)
[2021-05-14 09:57] LABS: C Reactive Protein 11.1 mg/dL (0.00-0.80); Magnesium 2.2 mg/dL (1.5-2.4); Phosphorus 3.6 mg/dL (2.4-5.1)
[2021-05-14 11:33] LABS: Glucose,Whole Blood 236 mg/dL (75-99)
[2021-05-14 14:01] VITALS: BMI 33.3
[2021-05-14 16:36] LABS: Glucose,Whole Blood 229 mg/dL (75-99)
[2021-05-14 20:43] LABS: Glucose,Whole Blood 271 mg/dL (75-99)
[2021-05-14] MEDS: ATORVASTATIN 40 MG TAB PO SCH (20:46)
--- NOTE | 2021-05-14 20:57 | P.PN ---
Subjective This is a pleasant 66 years old female with past medical history of Diabetes Mellitus, Deep Vein Thrombosis on Eliquis, Hyperlipidemia, Hypertension, Osteoarthritis, hypothyroidism Was recently discharged from hospital about 5 days ago on 05/07 for bilateral, with pneumonia and hypoxia, she was discharged on 4-5 L of oxygen Presents with generalized weakness and hypoxia for 3 days Patient presents because of generalized weakness and associated with dysuria and increased frequency. Her dyspnea is at the same level when we discharged her last time as well as her oxygen level. Patient heart rate is 75, blood pressure was low 82/54 currently is better 101/59 she is saturating 94% on 5 feet oxygen via nasal cannula. Showing mild leukocytosis of 10.9, rest of the CBC is unremarkable, INR is 1.2, d-dimer 0.5, sodium 133, rest of BMP and liver enzymes are unremarkable. LDH is slightly elevated at 731 and CRP is 20.1. Urinalysis is suspicious for infection CTA of the chest: Showing no evidence of pulmonary embolism, extensive bilateral pulmonary infiltrates consistent with multifocal pneumonia. EKG showing normal sinus rhythm at 97 with right bundle branch block and QTC 485 In the emergency room she received dexamethasone, Levaquin and normal saline. 05/14/2021 This is a pleasant 66 years old female who was recently discharged from this facility for bilateral Covid pneumonia and hypoxia she was discharged on 4-5 L of oxygen. Presents with generalized weakness secondary to urinary tract infection and urine culture is growing gram-negative bacilli, currently is covered with ceftriaxone final results of the cultures pending. Objective - Vital Signs Vital signs: Vital Signs Temp 98.6 F 05/14/21 06:15 Pulse 90 05/14/21 06:15 Resp 17 05/14/21 06:15 BP 112/68 05/14/21 08:15 Pulse Ox 96 05/14/21 06:15 Intake & Output 05/13/21 05/14/21 05/14/21 18:59 06:59 18:59 Weight 90.718 kg Other: Voiding Method Bedside Commode Bedside Commode Bedside Commode # Voids 4 3 - Exam GENERAL: The patient is alert and oriented x3, not in any acute distress. Well developed, well nourished. HEENT: Pupils are round and equally reacting to light. EOMI. No scleral icterus. No conjunctival pallor. Normocephalic, atraumatic. No pharyngeal erythema. No thyromegaly. CARDIOVASCULAR: S1 and S2 present. No murmurs, rubs, or gallops. -PULMONARY: Chest is clear to auscultation, no wheezing . Mild bilateral crackles. ABDOMEN: Soft, nontender, nondistended, normoactive bowel sounds. No palpable o rganomegaly. MUSCULOSKELETAL: No joint swelling or deformity. EXTREMITIES: No cyanosis, clubbing, or pedal edema. NEUROLOGICAL: Gross neurological examination did not reveal any focal deficits. SKIN: No rashes. no petechiae. - Labs CBC & Chem 7: 05/14/21 06:05 05/14/21 06:05 Labs: Abnormal Lab Results - Last 24 Hours (Table) 05/13/21 05/13/21 05/13/21 Range/Units 11:55 17:01 20:45 WBC (4.50-10.00) X 10*3/uL RBC (4.10-5.20) X 10*6/uL Hgb (12.0-15.0) g/dL Hct (37.2-46.3) % MCV (80.0-97.0) fL MCH (27.0-32.0) pg RDW (11.5-14.5) % Absolute Nucleated RBC (0.00-0.00) X 10*3/uL Immature Gran # (0.00-0.04) X 10*3/uL Neutrophils # (1.80-7.70) X 10*3/uL Eosinophils # (0.04-0.35) X 10*3/uL NRBC/100 WBC Diff (0.0-0.0) /100 WBCS BUN (9.0-27.0) mg/dL BUN/Creatinine Ratio (12.00-20.00) Ratio Glucose (70-110) mg/dL POC Glucose (mg/dL) 177 H 212 H 334 H (75-99) mg/dL Calcium (8.7-10.3) mg/dL C-Reactive Protein (0.00-0.80) mg/dL Total Protein (6.2-8.2) g/dL Albumin (3.8-4.9) g/dL Albumin/Globulin Ratio (1.60-3.17) g/dL 05/14/21 05/14/21 05/14/21 Range/Units 06:05 06:05 07:12 WBC 11.49 H (4.50-10.00) X 10*3/uL RBC 3.33 L (4.10-5.20) X 10*6/uL Hgb 10.9 L (12.0-15.0) g/dL Hct 33.8 L (37.2-46.3) % MCV 101.5 H (80.0-97.0) fL MCH 32.7 H (27.0-32.0) pg RDW 15.9 H (11.5-14.5) % Absolute Nucleated RBC 0.02 H (0.00-0.00) X 10*3/uL Immature Gran # 0.15 H (0.00-0.04) X 10*3/uL Neutrophils # 9.56 H (1.80-7.70) X 10*3/uL Eosinophils # 0.02 L (0.04-0.35) X 10*3/uL NRBC/100 WBC Diff 0.2 H (0.0-0.0) /100 WBCS BUN 36.5 H (9.0-27.0) mg/dL BUN/Creatinine Ratio 50.07 H (12.00-20.00) Ratio Glucose 177 H (70-110) mg/dL POC Glucose (mg/dL) 160 H (75-99) mg/dL Calcium 8.6 L (8.7-10.3) mg/dL C-Reactive Protein 11.10 H (0.00-0.80) mg/dL Total Protein 4.9 L (6.2-8.2) g/dL Albumin 2.9 L (3.8-4.9) g/dL Albumin/Globulin Ratio 1.48 L (1.60-3.17) g/dL Microbiology - Last 24 Hours (Table) 05/12/21 22:07 Urine Culture - Preliminary Urine,Voided Assessment and Plan Assessment: Acute urinary tract infection Dehydration and hypotension Ongoing Bilateral Covid pneumonia Acute hypoxic respiratory failure Increased inflammatory markers Diabetes mellitus History of DVT on Eliquis Hypertension Hyperlipidemia Plan: This is a pleasant 66 years old female who presents with bilateral covid pneumonia and urinary tract infection continue with Levaquin and follow-up urine culture Continue with dexamethasone Continue with vitamin C, vitamin D Continue with IV hydration 1 L of normal saline bolus Resume metformin Labs and medication were reviewed.. Continue same treatment. Continue with symptomatic treatment. Resume home medication. Monitor lytes and vitals. DVT and GI prophylaxis. Further recommendations depends on the clinical course of the patient DVT prophylaxis:Eliquis GI Prophylaxis: Pepcid PT/OT: Pending Prognosis is guarded
[2021-05-15] MEDS: LEVOFLOXACIN 750MG-D5W PMX 750 MG in DEXTROSE/WATER 1 150ML.BAG IVPB SCH (00:22)
[2021-05-15] MEDS: LEVOTHYROXINE 137 MCG TAB PO SCH (05:22)
[2021-05-15 07:07] LABS: Glucose,Whole Blood 135 mg/dL (75-99)
[2021-05-15] MEDS: INSULIN ASPART (NovoLOG) 100 UNIT/ML VIAL SQ SCH ×3 (07:54→17:02)
[2021-05-15] MEDS: PYRIDOXINE 50 MG TAB PO SCH (07:55)
[2021-05-15] MEDS: CYCLOBENZAPRINE 10 MG TAB PO SCH ×2 (08:16→17:02)
[2021-05-15] MEDS: CHOLECALCIFEROL 25 MCG (1000 IU) TABLET PO SCH (08:16)
[2021-05-15] MEDS: DULoxetine HCL 60 MG CAPSULE.DR PO SCH (08:16)
[2021-05-15] MEDS: ASCORBIC ACID 500 MG TAB PO SCH (08:16)
[2021-05-15] MEDS: APIXABAN 5 MG TAB PO SCH (08:16)
[2021-05-15] MEDS: ZINC SULFATE 220 MG CAP PO SCH (08:16)
[2021-05-15] MEDS: FOLIC ACID 1 MG TAB PO SCH (08:16)
[2021-05-15] MEDS: hydroCHLOROthiazide 25 MG TAB PO SCH (08:16)
[2021-05-15 11:49] LABS: Glucose,Whole Blood 201 mg/dL (75-99)
[2021-05-15 14:43] LABS: Basophils % (A) 0 %; Eosinophils # (A) 0.2 k/uL (0-0.7); Eosinophils % (A) 2 %; HCT 38.1 % (34.0-46.0); HGB 12.3 gm/dL (11.4-16.0); Hypochromasia Slight; Lymphocytes # (A) 1.3 k/uL (1.0-4.8); Lymphocytes % (A) 17 %; MCH 33.7 pg (25.0-35.0); MCHC 32.3 g/dL (31.0-37.0); MCV 104.1 fL (80.0-100.0); Macrocytosis Moderate; Mean Platelet Volume 8.9; Monocytes # (A) 0.5 k/uL (0-1.0); Monocytes % (A) 6 %; Neutrophils # (A) 5.5 k/uL (1.3-7.7); Neutrophils % (A) 72 %; Platelet Count 267 k/uL (150-450); RBC 3.66 m/uL (3.80-5.40); WBC 7.7 k/uL (3.8-10.6)
[2021-05-15 15:05] VITALS: BP 128/72; PULSE 115; RESP 16; TEMP 97.6
[2021-05-15 16:47] LABS: Glucose,Whole Blood 184 mg/dL (75-99)
--- NOTE | 2021-05-16 22:28 | P.DS ---
Providers Date of admission: 05/13/21 00:17 Attending physician: Marge Colby [facility] Course: Final Diagnosis Acute urinary tract infection Dehydration and hypotension Ongoing Bilateral Covid pneumonia Acute hypoxic respiratory failure Increased inflammatory markers Diabetes mellitus History of DVT on Eliquis Hypertension Hyperlipidemia Discharge Disposition Patient is stable for discharge, she is on 4-5 Liters of oxygen which is stable from recent discharge, and cleared by pulmonary services. Hospital Course This is a pleasant 66 year old female with past medical history significant for Diabetes Mellitus, Deep Vein Thrombosis on Eliquis, Hyperlipidemia, Hypertension, Osteoarthritis, hypothyroidism. Was recently discharged from hospital about 5 days ago on 05/07 for bilateral, with pneumonia and hypoxia, she was discharged on 4-5 L of oxygen. Presents with generalized weakness and hypoxia for 3 days. She also has dysuria and increased urinary frequency. Her dyspnea is at the same level when we discharged her last time as well as her oxygen level. Patient heart rate is 75, blood pressure was low 82/54 currently is better 101/59 she is saturating 94% on 5 feet oxygen via nasal cannula. Showing mild leukocytosis of 10.9, rest of the CBC is unremarkable, INR is 1.2, d-dimer 0.5, sodium 133, rest of BMP and liver enzymes are unremarkable. LDH is slightly elevated at 731 and CRP is 20.1. Urinalysis is suspicious for infection. CTA of the chest: Showing no evidence of pulmonary embolism, extensive bilateral pulmonary infiltrates consistent with multifocal pneumonia. EKG showing normal sinus rhythm at 97 with right bundle branch block and QTC 485. In the emergency room she received dexamethasone, Levaquin and normal saline. Urine culture was positive for gram negative bacilli which finalized to E.Coli. Patient was discharged on course of oral levaquin to finish therapy for pneumonia as started in the [facility] and will also cover for E. Coli UTI. Patient to continue with zinc, and additional vitamins for COVID infection. Repeat labs in 3 days. Vitals have remained stable, patient is afebrile, heart rate 80's, blood pressure 128/72. She is 95% on 4L nasal cannula. Sodium improved to 141 with hydration, potassium 4.3, glucose in the 180s, was in the 300's with dexamethasone. Procalcitonin level 0.26. Coronavirus PCR was negative. Last positive was on 04/24/2021. 05/16/2021 Patient stable for discharge on oxygen at 4-5L. She was hydrated and treated with antibiotics. Evaluated by PT on 05/14 and recommended to return home with homecare no need for rehab. Patient is sitting up in the chair. No acute events overnight. She denies chest pain, reports mild dyspnea with exertion, none at rest. She does have mild non productive cough. Denies dysuria, burning, frequency, or urgency which has improved since admission. She denies nausea, vomiting, or diarrhea. Lungs are clear, S1 and S2 auscultated, abdomen is soft and nontender, focal neurological exam is negative. Vitals stable, afebrile. WBC normalized at 7.7, blood sugar improved. Please see medication reconciliation for a list of current medications. Thank you for allowing us to participate in the care of this patient. Patient Condition at Discharge: Fair Plan - Discharge Summary Discharge Rx Participant: No New Discharge Prescriptions: New levoFLOXacin 500 mg PO DAILY #8 tablet Zinc Sulfate [Orazinc] 220 mg PO DAILY #30 cap Acetaminophen Tab [Tylenol] 650 mg PO Q6HR PRN tab PRN Reason: Mild Pain Or Fever > 100.5 Continue Levothyroxine Sodium [Synthroid] 137 mcg PO DAILY DULoxetine HCL [Cymbalta] 60 mg PO DAILY Cyclobenzaprine HCl 10 mg PO TID Budesonide-Formot 160-4.5 Mcg [Symbicort 160-4.5 Mcg Inhaler] 2 puff INHALATION RT-BID PRN PRN Reason: Shortness Of Breath Apixaban [Eliquis] 5 mg PO BID Folic Acid 1 mg PO DAILY Albuterol Sulfate [Albuterol Sulfate Hfa] 2 puff PO RT-Q6H PRN #1 each PRN Reason: Shortness Of Breath Insulin Glargine,Hum.rec.anlog [Lantus Solostar Pen] 28 unit SQ BID hydroCHLOROthiazide [Hydrodiuril] 25 mg PO DAILY metFORMIN HCL [Glucophage] 1,000 mg PO BID HYDROcodone/APAP 10-325MG [[place] 10-325] 1 tab PO Q6HR PRN PRN Reason: Pain Atorvastatin [Lipitor] 40 mg PO HS Canagliflozin [Invokana] 300 mg PO DAILY Levothyroxine Sodium 68.5 mcg PO CHAMBERS Ascorbic Acid [Vitamin C] 1,000 mg PO DAILY #60 tab Cholecalciferol [Vitamin D3 (25 Mcg = 1000 Iu)] 25 mcg PO DAILY #30 tab Zinc 50 mg PO DAILY Sennosides-Docusate Sodium [Senokot-S] 2 tab PO BID PRN PRN Reason: Constipation Metoprolol Tartrate [Lopressor] 12.5 mg PO BID Pyridoxine HCl (Vitamin B6) [Vitamin B-6] 100 mg PO DAILY Discontinued amLODIPine BESYLATE/BENAZEPRIL [amLODIPine BESYLATE/BENAZEPRIL 10-20 MG] 1 cap PO DAILY Discharge Medication List DULoxetine HCL [Cymbalta] 60 mg PO DAILY 01/27/17 [History] Levothyroxine Sodium [Synthroid] 137 mcg PO DAILY 01/27/17 [History] Apixaban [Eliquis] 5 mg PO BID 04/24/21 [History] Atorvastatin [Lipitor] 40 mg PO HS 04/24/21 [History] Budesonide-Formot 160-4.5 Mcg [Symbicort 160-4.5 Mcg Inhaler] 2 puff INHALATION RT-BID PRN 04/24/21 [History] Canagliflozin [Invokana] 300 mg PO DAILY 04/24/21 [History] Cyclobenzaprine HCl 10 mg PO TID 04/24/21 [History] Folic Acid 1 mg PO DAILY 04/24/21 [History] HYDROcodone/APAP 10-325MG [[place] 10-325] 1 tab PO Q6HR PRN 04/24/21 [History] Levothyroxine Sodium 68.5 mcg PO CHAMBERS 04/24/21 [History] metFORMIN HCL [Glucophage] 1,000 mg PO BID 04/24/21 [History] Albuterol Sulfate [Albuterol Sulfate Hfa] 2 puff PO RT-Q6H PRN #1 each 05/07/21 [Rx] Ascorbic Acid [Vitamin C] 1,000 mg PO DAILY #60 tab 05/07/21 [Rx] Cholecalciferol [Vitamin D3 (25 Mcg = 1000 Iu)] 25 mcg PO DAILY #30 tab 05/07/21 [Rx] Insulin Glargine,Hum.rec.anlog [Lantus Solostar Pen] 28 unit SQ BID 05/12/21 [History] Metoprolol Tartrate [Lopressor] 12.5 mg PO BID 05/12/21 [History] Pyridoxine HCl (Vitamin B6) [Vitamin B-6] 100 mg PO DAILY 05/12/21 [History] Sennosides-Docusate Sodium [Senokot-S] 2 tab PO BID PRN 05/12/21 [History] Zinc 50 mg PO DAILY 05/12/21 [History] hydroCHLOROthiazide [Hydrodiuril] 25 mg PO DAILY 05/12/21 [History] Acetaminophen Tab [Tylenol] 650 mg PO Q6HR PRN tab 05/15/21 [Rx] Zinc Sulfate [Orazinc] 220 mg PO DAILY #30 cap 05/15/21 [Rx] levoFLOXacin 500 mg PO DAILY #8 tablet 05/15/21 [Rx] Follow up Appointment(s)/Referral(s): Agusto Montano [NON-STAFF] - As Needed Amol Stovall DO [Primary Care Provider] - 05/21/21 8:20 am (office will call to follow up tomorrow) Ambulatory/Diagnostic Orders: Basic Metabolic Panel [LAB.AMB] Time Frame: 3 Days, Location: None Selected Complete Blood Count w/diff [LAB.AMB] Time Frame: 3 Days, Location: None Selected Patient Instructions/Handouts: Urinary Tract Infection in Women (DC) Activity/Diet/Wound Care/Special Instructions: Return home with home oxygen Follow up PCP Can resume amlodipine/benazepril outpatient if blood pressure increases Discharge Disposition: HOME WITH HOME HEALTH SERVICES
[2021-05-19] MEDS ORDERED: LEVOTHYROXINE 137 MCG TAB PO SCH (06:35)
== END 2021-05-15 18:22 | disposition home health service (06) | DRG 689 ==
LOC: EC 21:25 → 4SSUR 05-13 00:17
PROVIDERS: ADMIT Hospitalist; ATTEND Hospitalist
DX: N39.0 Urinary tract infection, site not specified (principal); U07.1 COVID-19; J12.82 Pneumonia due to coronavirus disease 2019; J96.01 Acute respiratory failure with hypoxia; E78.5 Hyperlipidemia, unspecified; Z79.4 Long term (current) use of insulin; E86.0 Dehydration; E03.9 Hypothyroidism, unspecified; I10 Essential (primary) hypertension; M19.90 Unspecified osteoarthritis, unspecified site; Z79.01 Long term (current) use of anticoagulants; Z79.51 Long term (current) use of inhaled steroids; Z79.84 Long term (current) use of oral hypoglycemic drugs; Z79.890 Hormone replacement therapy; Z79.899 Other long term (current) drug therapy; Z86.718 Personal history of other venous thrombosis and embolism; Z86.14 Personal history of Methicillin resistant Staphylococcus aureus infection; Z86.19 Personal history of other infectious and parasitic diseases; Z90.710 Acquired absence of both cervix and uterus; Z87.42 Personal history of other diseases of the female genital tract; Z87.39 Personal history of other diseases of the musculoskeletal system and connective tissue; Z98.890 Other specified postprocedural states; Z88.1 Allergy status to other antibiotic agents; Z82.49 Family history of ischemic heart disease and other diseases of the circulatory system; Z83.3 Family history of diabetes mellitus; I95.9 Hypotension, unspecified; E11.9 Type 2 diabetes mellitus without complications; I45.10 Unspecified right bundle-branch block
CPT/HCPCS: 36415; 71275; 80053; 81001; 83605; 83615; 83735; 83880; 84100; 84145; 84484; 85025; 85379; 85610; 85730; 86140; 87077; 87086; 87186; 87635; 93005; 94640; 96361; 96365; 96375; 99291

== ENCOUNTER → 2021-06-04 | Outpatient (CLI) | payer MEDICARE ==
--- NOTE | 2021-06-04 16:08 | XR ---
EXAMINATION TYPE: XR chest 2V DATE OF EXAM: 06/04/2021 COMPARISON: Chest x-ray 05/06/[address] 05/12/2021 HISTORY: [id number] COVID TECHNIQUE: Frontal and lateral views of the chest are obtained. FINDINGS: Extensive interstitial and parenchymal changes are present but improved compared to prior exam. Right hemidiaphragm remains elevated. Cardiac mediastinal silhouette is likely stable. Postop c hanges are noted in the cervical spine. There is no evident pneumothorax or pleural effusion. Aorta i s dense. There is a kyphosis centered at the lower thoracic spine, compression deformity suspected. IMPRESSION: Findings in the lungs likely secondary to patient's history of Covid infection
== END | disposition home or self-care (01) ==
LOC: RADXRYALE 15:46
PROVIDERS: ATTEND Physician Assistant Medical
DX: Z09 Encounter for follow-up examination after completed treatment for conditions other than malignant neoplasm (principal); Z86.16 Personal history of COVID-19
CPT/HCPCS: 71046

== ENCOUNTER → 2022-12-03 | Outpatient (CLI) | payer MEDICARE ==
--- NOTE | 2022-12-03 15:36 | XR ---
EXAMINATION TYPE: XR ankle complete RT DATE OF EXAM: 12/03/2022 COMPARISON: NONE HISTORY: Pain TECHNIQUE: Frontal, lateral and oblique images of the right ankle are obtained. COMPARISON: None. FINDINGS: There is no acute fracture/dislocation evident. Bony fragmentation involving the mid foot. Correlate for developing Charcot joint. Vascular calcifications noted. Plantar calcaneal spurs. The overlying soft tissue appears unremarkable. IMPRESSION: There is no acute fracture or dislocation seen.
== END | disposition home or self-care (01) ==
LOC: RADXRYALE 14:56
PROVIDERS: ATTEND Physician Assistant Medical
DX: M25.561 Pain in right knee (principal); W01.0XXA Fall on same level from slipping, tripping and stumbling without subsequent striking against object, initial encounter; M25.571 Pain in right ankle and joints of right foot; M51.36 Other intervertebral disc degeneration, lumbar region; R53.1 Weakness; M54.41 Lumbago with sciatica, right side; M54.42 Lumbago with sciatica, left side; Z96.651 Presence of right artificial knee joint
CPT/HCPCS: 72110

== ENCOUNTER 2024-05-06 13:52 | Inpatient (IN) | payer MEDICARE, OTHER ==
[2024-05-06 14:12] LABS: Glucose,Whole Blood 94 mg/dL (70-110)
[2024-05-06] MEDS: SODIUM CHLORIDE 0.9% 1,000 ML IV STA ×3 (14:41→17:09)
[2024-05-06] MEDS: ONDANSETRON 4 MG/2 ML VIAL IVP STA (14:42)
[2024-05-06 14:56] LABS: Anisocytosis Slight; Basophils % (A) 0 %; Eosinophils # (A) 0.1 k/uL (0-0.7); Eosinophils % (A) 1 %; HGB 8.8 gm/dL (11.4-16.0); Hypochromasia Slight; Lymphocytes # (A) 1.9 k/uL (1.0-4.8); Lymphocytes % (A) 15 %; MCHC 32.5 g/dL (31.0-37.0); MCV 110.7 fL (80.0-100.0); Macrocytosis Marked; Mean Platelet Volume 9.8; Monocytes # (A) 0.6 k/uL (0-1.0); Monocytes % (A) 5 %; Neutrophils # (A) 9.7 k/uL (1.3-7.7); Neutrophils % (A) 77 %; Platelet Count 353 k/uL (150-450); RBC 2.44 m/uL (3.80-5.40); RDW 17.7 % (11.5-15.5); WBC 12.6 k/uL (3.8-10.6)
[2024-05-06 15:11] LABS: ALT 124 U/L (4-34); AST 119 U/L (14-36); African American GFR (CKD) 12 (>60 ml/min/1.73 sqM); Albumin 3.5 g/dL (3.5-5.0); Alkaline Phosphatase 76 U/L (38-126); Anion Gap 21 mmol/L; Blood Urea Nitrogen 68 mg/dL (7-17); Calcium 9.7 mg/dL (8.4-10.2); Chloride 106 mmol/L (98-107); Glucose 79 mg/dL (74-99); Magnesium 2.8 mg/dL (1.6-2.3); Non-African American GFR(CKD) 11 (>60 ml/min/1.73 sqM); Phosphorus 5.8 mg/dL (2.5-4.5); Sodium 136 mmol/L (137-145); Total Bilirubin 0.3 mg/dL (0.2-1.3); Total Protein 5.3 g/dL (6.3-8.2)
[2024-05-06 15:21] LABS: Carbon Dioxide 9 mmol/L (22-30); Potassium 6.1 mmol/L (3.5-5.1)
[2024-05-06 15:33] LABS: Influenza A Not Detected (Not Detectd); Influenza B Not Detected (Not Detectd); RSV Not Detected (Not Detectd)
--- NOTE | 2024-05-06 15:44 | ED ---
Recheck HPI - General Source: patient, EMS, RN notes reviewed Mode of arrival: EMS Limitations: no limitations - History of Present Illness MD Complaint: abnormal lab <Lina Baldwin - Last Filed: 05/09/24 19:21> <ReynaMallory Sherri - Last Filed: 05/14/24 21:13> - General Chief Complaint: Recheck/Abnormal Lab/Rx Stated Complaint: Hypoglycemia Time Seen by Provider: 05/06/24 14:18 - History of Present Illness Initial Comments: This is a 69-year-old female who presents to the emergency department for hypoglycemia and weakness. Patient currently takes Lantus, Fiasp, metformin, and Ozempic for diabetes. This morning her found her altered and he checked her sugar and it was about 34. EMS was called and they gave her an amp of dextrose. After leaving they received a call later on in the day that her sugar had again dropped, this time to 20, and they returned. They again gave her an amp of dextrose and then brought her here. Patient states that her sugar was low yesterday as well, and she corrected this by eating applesauce. She does report feeling very weak and unwell in general. She reports currently being treated for a UTI as well. Denies any chest pain or shortness of breath. (Lina Baldwin) - Related Data Home Medications Medication Instructions Recorded Confirmed Apixaban [Eliquis] 5 mg PO BID 04/24/21 05/06/24 Folic Acid 1 mg PO DAILY 04/24/21 05/06/24 HYDROcodone/APAP 10-325MG [[place] 1 tab PO Q6HR PRN 04/24/21 05/06/24 10-325] metFORMIN HCL [Glucophage] 1,000 mg PO BID 04/24/21 05/06/24 Insulin Glargine,Hum.rec.anlog 24 - 30 unit SQ BID 05/12/21 05/06/24 [Lantus Solostar Pen] Metoprolol Tartrate [Lopressor] 25 mg PO DIRECTED 05/12/21 05/06/24 DULoxetine HCL [Cymbalta] 30 mg PO DAILY 05/06/24 05/06/24 Insulin Aspart (Niacinamide) See Protocol SQ DIRECTED 05/06/24 05/06/24 [Fiasp 100 Unit/ml Flextouch Pen] Levothyroxine Sodium [Synthroid] 112 mcg PO DAILY 05/06/24 05/06/24 Metabolism Support Vitamin B-12 500 mcg PO DAILY 05/06/24 05/06/24 500mcg Rosuvastatin Calcium [Crestor] 40 mg PO HS 05/06/24 05/06/24 Semaglutide [Ozempic] 1 mg SQ MO 05/06/24 05/06/24 amLODIPine BESYLATE/BENAZEPRIL 1 cap PO DAILY 05/06/24 05/06/24 [Lotrel 10-20 mg Capsule] Allergies Allergy/AdvReac Type Severity Reaction Status Date / Time cefazolin Allergy Severe Rash/Hives Verified 05/06/24 18:03 Review of Systems ROS Other: All systems not noted in ROS Statement are negative. <Lina Baldwin - Last Filed: 05/09/24 19:21> ROS Other: All systems not noted in ROS Statement are negative. <Mallory Orellana - Last Filed: 05/14/24 21:13> ROS Statement: Those systems with pertinent positive or pertinent negative responses have been documented in the HPI. Past Medical History Past Medical History: Diabetes Mellitus, Deep Vein Thrombosis (DVT), H yperlipidemia, Hypertension, Osteoarthritis (OA), Thyroid Disorder Additional Past Medical History / Comment(s): DVT L Leg History of Any Multi-Drug Resistant Organisms: ESBL, MRSA Date of last positivie culture/infection: 11/05/23 - ESBL; 01/27/17 - MRSA MDRO Source:: ESBL - URINE; MRSA - blood Past Surgical History: Hysterectomy, Orthopedic Surgery Additional Past Surgical History / Comment(s): Rectocele;hand,ankle and knee surg.; Past Anesthesia/Blood Transfusion Reactions: No Reported Reaction Past Psychological History: No Psychological Hx Reported Past Alcohol Use History: Rare Past Drug Use History: None Reported - Past Family History Brother(s) Family Medical History: Deep Vein Thrombosis (DVT) Mother Family Medical History: Coronary Artery Disease (CAD) Father Family Medical History: Diabetes Mellitus <Lina Baldwin - Last Filed: 05/09/24 19:21> General Exam Limitations: no limitations General appearance: alert, in no apparent distress Head exam: Present: atraumatic, normocephalic, normal inspection Respiratory exam: Present: normal lung sounds bilaterally. Absent: respiratory distress, wheezes, rales, rhonchi, stridor Cardiovascular Exam: Present: regular rate, normal rhythm, normal heart sounds. Absent: systolic murmur, diastolic murmur, rubs, gallop, clicks Neurological exam: Present: alert, oriented X3, CN II-XII intact Psychiatric exam: Present: normal affect, normal mood Skin exam: Present: warm, dry, intact, normal color. Absent: rash <Lina Baldwin - Last Filed: 05/09/24 19:21> Course Vital Signs 05/06/24 05/06/24 05/06/24 13:54 14:46 17:12 Temperature 97.4 F L Pulse Rate 79 78 84 Pulse Rate [ Limnology Teacher ] Pulse Rate [ Pulse Oximetery ] Respiratory 19 18 18 Rate Blood Pressure 95/47 104/47 90/42 Blood Pressure [Right Arm] O2 Sat by Pulse 96 96 92 L Oximetry 05/06/24 05/06/24 05/06/24 18:00 19:15 19:45 Temperature Pulse Rate 86 84 88 Pulse Rate [ Limnology Teacher ] Pulse Rate [ Pulse Oximetery ] Respiratory 17 16 16 Rate Blood Pressure 82/39 81/34 88/55 Blood Pressure [Right Arm] O2 Sat by Pulse 95 95 94 L Oximetry 05/06/24 05/06/24 05/06/24 20:00 20:15 20:30 Temperature Pulse Rate 85 83 86 Pulse Rate [ Limnology Teacher ] Pulse Rate [ Pulse Oximetery ] Respiratory 18 16 16 Rate Blood Pressure 80/35 86/40 89/42 Blood Pressure [Right Arm] O2 Sat by Pulse 95 95 95 Oximetry 05/06/24 05/06/24 05/06/24 20:45 21:00 21:15 Temperature Pulse Rate 82 84 84 Pulse Rate [ Limnology Teacher ] Pulse Rate [ Pulse Oximetery ] Respiratory 16 16 16 Rate Blood Pressure 82/49 74/38 81/42 Blood Pressure [Right Arm] O2 Sat by Pulse 94 L 95 94 L Oximetry 05/06/24 05/06/24 05/06/24 21:30 21:45 22:00 Temperature Pulse Rate 84 89 87 Pulse Rate [ Limnology Teacher ] Pulse Rate [ Pulse Oximetery ] Respiratory 16 16 16 Rate Blood Pressure 78/41 74/38 65/28 Blood Pressure [Right Arm] O2 Sat by Pulse 95 94 L 95 Oximetry 05/06/24 05/06/24 05/06/24 22:10 22:15 22:30 Temperature Pulse Rate 84 84 87 Pulse Rate [ Limnology Teacher ] Pulse Rate [ Pulse Oximetery ] Respiratory 16 16 16 Rate Blood Pressure 55/31 59/29 96/43 Blood Pressure [Right Arm] O2 Sat by Pulse 94 L 94 L 95 Oximetry 05/06/24 05/06/24 05/06/24 22:35 22:50 22:55 Temperature Pulse Rate 86 88 85 Pulse Rate [ Limnology Teacher ] Pulse Rate [ Pulse Oximetery ] Respiratory 16 16 16 Rate Blood Pressure 90/47 80/49 82/44 Blood Pressure [Right Arm] O2 Sat by Pulse 94 L 94 L 94 L Oximetry 05/06/24 05/06/24 05/06/24 23:00 23:05 23:10 Temperature Pulse Rate 84 87 82 Pulse Rate [ Limnology Teacher ] Pulse Rate [ Pulse Oximetery ] Respiratory 16 16 16 Rate Blood Pressure 85/42 80/47 89/42 Blood Pressure [Right Arm] O2 Sat by Pulse 88 L 95 95 Oximetry 05/06/24 05/06/24 05/06/24 23:15 23:20 23:25 Temperature Pulse Rate 85 85 85 Pulse Rate [ Limnology Teacher ] Pulse Rate [ Pulse Oximetery ] Respiratory 16 16 16 Rate Blood Pressure 94/38 94/38 94/56 Blood Pressure [Right Arm] O2 Sat by Pulse 95 95 95 Oximetry 05/06/24 05/06/24 05/06/24 23:30 23:35 23:40 Temperature Pulse Rate 84 85 85 Pulse Rate [ Limnology Teacher ] Pulse Rate [ Pulse Oximetery ] Respiratory 16 8 L 21 Rate Blood Pressure 105/47 105/45 99/39 Blood Pressure [Right Arm] O2 Sat by Pulse 96 96 95 Oximetry 05/06/24 05/06/24 05/06/24 23:45 23:50 23:55 Temperature Pulse Rate 86 86 87 Pulse Rate [ Limnology Teacher ] Pulse Rate [ Pulse Oximetery ] Respiratory 13 16 16 Rate Blood Pressure 87/38 102/42 99/53 Blood Pressure [Right Arm] O2 Sat by Pulse 94 L 94 L 94 L Oximetry 05/07/24 05/07/24 05/07/24 00:00 00:05 00:10 Temperature Pulse Rate 89 91 90 Pulse Rate [ Limnology Teacher ] Pulse Rate [ Pulse Oximetery ] Respiratory 16 16 16 Rate Blood Pressure 100/44 95/35 94/34 Blood Pressure [Right Arm] O2 Sat by Pulse 95 95 95 Oximetry 05/07/24 05/07/24 05/07/24 00:15 00:20 00:25 Temperature 98.0 F Pulse Rate 87 87 92 Pulse Rate [ Limnology Teacher ] Pulse Rate [ Pulse Oximetery ] Respiratory 16 16 16 Rate Blood Pressure 93/37 82/38 87/47 Blood Pressure [Right Arm] O2 Sat by Pulse 94 L 94 L 95 Oximetry 05/07/24 05/07/24 05/07/24 00:30 00:35 00:40 Temperature Pulse Rate 90 88 89 Pulse Rate [ Limnology Teacher ] Pulse Rate [ Pulse Oximetery ] Respiratory 16 18 18 Rate Blood Pressure 93/40 90/55 83/53 Blood Pressure [Right Arm] O2 Sat by Pulse 94 L 95 94 L Oximetry 05/07/24 05/07/24 05/07/24 00:45 00:50 00:55 Temperature Pulse Rate 92 90 87 Pulse Rate [ Limnology Teacher ] Pulse Rate [ Pulse Oximetery ] Respiratory 18 18 18 Rate Blood Pressure 99/44 94/45 98/46 Blood Pressure [Right Arm] O2 Sat by Pulse 94 L 94 L 95 Oximetry 05/07/24 05/07/24 05/07/24 01:00 01:05 01:10 Temperature Pulse Rate 87 89 90 Pulse Rate [ Limnology Teacher ] Pulse Rate [ Pulse Oximetery ] Respiratory 16 16 16 Rate Blood Pressure 95/45 89/46 93/40 Blood Pressure [Right Arm] O2 Sat by Pulse 94 L 95 95 Oximetry 05/07/24 05/07/24 05/07/24 01:15 01:20 01:25 Temperature Pulse Rate 84 90 86 Pulse Rate [ Limnology Teacher ] Pulse Rate [ Pulse Oximetery ] Respiratory 18 18 16 Rate Blood Pressure 93/40 100/47 102/44 Blood Pressure [Right Arm] O2 Sat by Pulse 95 94 L 95 Oximetry 05/07/24 05/07/24 05/07/24 01:30 01:35 01:45 Temperature Pulse Rate 85 85 87 Pulse Rate [ Limnology Teacher ] Pulse Rate [ Pulse Oximetery ] Respiratory 16 18 16 Rate Blood Pressure 105/44 98/49 99/40 Blood Pressure [Right Arm] O2 Sat by Pulse 95 95 95 Oximetry 05/07/24 05/07/24 05/07/24 02:00 02:15 02:30 Temperature Pulse Rate 86 86 86 Pulse Rate [ Limnology Teacher ] Pulse Rate [ Pulse Oximetery ] Respiratory 16 16 16 Rate Blood Pressure 110/48 99/37 107/45 Blood Pressure [Right Arm] O2 Sat by Pulse 95 94 L 94 L Oximetry 05/07/24 05/07/24 05/07/24 02:45 03:00 03:15 Temperature Pulse Rate 89 90 90 Pulse Rate [ Limnology Teacher ] Pulse Rate [ Pulse Oximetery ] Respiratory 18 18 18 Rate Blood Pressure 85/50 115/47 113/47 Blood Pressure [Right Arm] O2 Sat by Pulse 95 94 L 94 L Oximetry 05/07/24 05/07/24 05/07/24 03:30 03:45 04:00 Temperature Pulse Rate 87 89 88 Pulse Rate [ Limnology Teacher ] Pulse Rate [ Pulse Oximetery ] Respiratory 18 18 18 Rate Blood Pressure 112/48 115/49 116/44 Blood Pressure [Right Arm] O2 Sat by Pulse 94 L 94 L 94 L Oximetry 05/07/24 05/07/24 05/07/24 04:15 04:30 04:45 Temperature Pulse Rate 88 88 90 Pulse Rate [ Limnology Teacher ] Pulse Rate [ Pulse Oximetery ] Respiratory 16 18 18 Rate Blood Pressure 116/57 109/48 124/46 Blood Pressure [Right Arm] O2 Sat by Pulse 94 L 94 L 94 L Oximetry 05/07/24 05/07/24 05/07/24 05:00 05:15 05:30 Temperature Pulse Rate 95 92 93 Pulse Rate [ Limnology Teacher ] Pulse Rate [ Pulse Oximetery ] Respiratory 18 18 16 Rate Blood Pressure 98/46 115/46 111/49 Blood Pressure [Right Arm] O2 Sat by Pulse 95 94 L 95 Oximetry 05/07/24 05/07/24 05/07/24 05:45 06:00 06:15 Temperature Pulse Rate 93 97 96 Pulse Rate [ Limnology Teacher ] Pulse Rate [ Pulse Oximetery ] Respiratory 16 16 18 Rate Blood Pressure 120/46 106/47 104/46 Blood Pressure [Right Arm] O2 Sat by Pulse 94 L 94 L 94 L Oximetry 05/07/24 05/07/24 05/07/24 06:30 07:58 08:13 Temperature 98.9 F Pulse Rate 101 H 101 H 99 Pulse Rate [ Limnology Teacher ] Pulse Rate [ Pulse Oximetery ] Respiratory 18 20 20 Rate Blood Pressure 109/57 111/46 111/46 Blood Pressure [Right Arm] O2 Sat by Pulse 94 L 95 95 Oximetry 05/07/24 05/07/24 05/07/24 08:26 09:33 10:01 Temperature 98.6 F Pulse Rate 103 H 104 H 105 H Pulse Rate [ Limnology Teacher ] Pulse Rate [ Pulse Oximetery ] Respiratory 18 18 24 Rate Blood Pressure 105/44 100/56 103/52 Blood Pressure [Right Arm] O2 Sat by Pulse 94 L 95 94 L Oximetry 05/07/24 05/07/24 05/07/24 10:16 10:46 11:21 Temperature Pulse Rate 108 H 99 101 H Pulse Rate [ Limnology Teacher ] Pulse Rate [ Pulse Oximetery ] Respiratory 24 24 24 Rate Blood Pressure 104/46 105/45 117/51 Blood Pressure [Right Arm] O2 Sat by Pulse 95 93 L 95 Oximetry 05/07/24 05/07/24 05/07/24 12:00 13:00 13:32 Temperature 98.8 F Pulse Rate 102 H 99 101 H Pulse Rate [ Limnology Teacher ] Pulse Rate [ Pulse Oximetery ] Respiratory 24 24 24 Rate Blood Pressure 116/41 111/46 107/48 Blood Pressure [Right Arm] O2 Sat by Pulse 95 96 96 Oximetry 05/07/24 05/07/24 05/07/24 14:00 15:01 16:00 Temperature 98.7 F Pulse Rate 101 H 101 H 98 Pulse Rate [ Limnology Teacher ] Pulse Rate [ Pulse Oximetery ] Respiratory 24 22 22 Rate Blood Pressure 100/64 106/46 91/50 Blood Pressure [Right Arm] O2 Sat by Pulse 96 97 94 L Oximetry 05/07/24 05/07/24 05/07/24 16:15 16:20 16:36 Temperature Pulse Rate 101 H 101 H 96 Pulse Rate [ Limnology Teacher ] Pulse Rate [ Pulse Oximetery ] Respiratory 22 24 24 Rate Blood Pressure 99/44 102/47 90/57 Blood Pressure [Right Arm] O2 Sat by Pulse 95 96 94 L Oximetry 05/07/24 05/07/24 05/07/24 17:00 18:00 19:00 Temperature 99.5 F Pulse Rate 101 H 97 98 Pulse Rate [ Limnology Teacher ] Pulse Rate [ Pulse Oximetery ] Respiratory 24 22 24 Rate Blood Pressure 107/49 111/45 111/46 Blood Pressure [Right Arm] O2 Sat by Pulse 96 96 95 Oximetry 05/07/24 05/07/24 05/07/24 19:30 20:58 21:00 Temperature Pulse Rate 99 98 96 Pulse Rate [ Limnology Teacher ] Pulse Rate [ Pulse Oximetery ] Respiratory 24 24 22 Rate Blood Pressure 110/47 105/65 106/49 Blood Pressure [Right Arm] O2 Sat by Pulse 95 95 95 Oximetry 05/07/24 05/07/24 05/07/24 22:00 22:20 23:00 Temperature 98 F Pulse Rate 102 H 111 H Pulse Rate [ 100 Limnology Teacher ] Pulse Rate [ 101 H Pulse Oximetery ] Respiratory 20 19 22 Rate Blood Pressure 117/49 120/51 Blood Pressure 117/49 [Right Arm] O2 Sat by Pulse 94 L 99 94 L Oximetry 05/07/24 05/08/24 05/08/24 23:46 01:14 03:28 Temperature 99.5 F Pulse Rate 106 H 105 H 105 H Pulse Rate [ Limnology Teacher ] Pulse Rate [ Pulse Oximetery ] Respiratory 22 12 18 Rate Blood Pressure 116/47 116/61 130/58 Blood Pressure [Right Arm] O2 Sat by Pulse 95 95 95 Oximetry 05/08/24 05/08/24 05/08/24 04:55 05:59 06:54 Temperature 97.6 F Pulse Rate 108 H 105 H 112 H Pulse Rate [ Limnology Teacher ] Pulse Rate [ Pulse Oximetery ] Respiratory 13 16 11 L Rate Blood Pressure 131/59 130/57 130/59 Blood Pressure [Right Arm] O2 Sat by Pulse 94 L 95 95 Oximetry 05/08/24 05/08/24 05/08/24 07:00 07:46 08:00 Temperature Pulse Rate 105 H 107 H 102 H Pulse Rate [ Limnology Teacher ] Pulse Rate [ Pulse Oximetery ] Respiratory 9 L 18 8 L Rate Blood Pressure 126/60 134/68 131/61 Blood Pressure [Right Arm] O2 Sat by Pulse 95 95 95 Oximetry 05/08/24 05/08/24 05/08/24 09:32 09:51 10:00 Temperature 98.9 F Pulse Rate 101 H 98 96 Pulse Rate [ Limnology Teacher ] Pulse Rate [ Pulse Oximetery ] Respiratory 16 16 16 Rate Blood Pressure 133/63 139/64 130/60 Blood Pressure [Right Arm] O2 Sat by Pulse 95 95 95 Oximetry 05/08/24 05/08/24 05/08/24 10:26 11:04 11:22 Temperature 98.6 F 99.2 F Pulse Rate 101 H 104 H 103 H Pulse Rate [ Limnology Teacher ] Pulse Rate [ Pulse Oximetery ] Respiratory 16 16 16 Rate Blood Pressure 124/60 126/59 125/56 Blood Pressure [Right Arm] O2 Sat by Pulse 95 95 96 Oximetry Medical Decision Making - Lab Data Result diagrams: 05/09/24 04:11 05/09/24 04:11 - Radiology Data Radiology results: report reviewed, image reviewed <Lina Baldwin - Last Filed: 05/09/24 19:21> - Lab Data Result diagrams: 05/14/24 15:22 05/14/24 06:57 <Mallory Orellana - Last Filed: 05/14/24 21:13> - Medical Decision Making This is a 69-year-old female who presents to the emergency department for hypoglycemia and weakness. Was pt. sent in by a medical professional or institution? @ -No Did you speak to anyone other than the patient for history? @ -EMS provided the majority of the history. Did you review nursing and triage notes? @ -Yes, and I agree, it is accurate with regards to the patient's symptoms. Were old charts reviewed? @ -No Differential Diagnosis? @ -Differential Weakness: Hypoglycemia, shock, sepsis, hyponatremia, anemia, infection, LA, ETOH, adverse medicine reaction, overdose, stroke, this is not meant to be an all-inclusive list. EKG interpreted by me (3pts min.)? @ -EKG interpreted by me demonstrating the following: Junctional rhythm. Ventricular rate 76 bpm, MN interval 100 ms, QRS duration 118 ms, QTc 434 ms. X-rays interpreted by me (1pt min.)? @ -Chest x-ray obtained, my interpretation identifies no localized consolidations or infiltrates. CT interpreted by me (1pt min.)? @ -CT scan of the chest, abdomen, and pelvis obtained. My interpretation identifies no evidence of a pulmonary infiltrate, bowel wall thickening, or free air. U/S interpreted by me (1pt. min.)? @ -Renal ultrasound obtained. My interpretation identifies no evidence of hydronephrosis. What testing was considered but not performed? (CT, X-rays, U/S, labs)? Why? @ -None What meds were considered but not given? Why? @ -None Did you discuss the management of the patient with other professionals? @ -Yes, Dr. Galvez, who accepts the patient for admission. Did you reconcile home meds? @ -Yes Was smoking cessation discussed for >3mins.? @ -No Was critical care preformed (if so, how long)? @ -Yes, >35 minutes Were there social determinants of health that impacted care today? How? (Homelessness, low income, unemployed, alcoholism, drug addiction, transportation, low edu. Level, literacy, decrease access to med. care, custodial, rehab)? @ -No Was there de-escalation of care discussed even if they declined? (Discuss DNR or withdrawal of care, Hospice)? @ -No What co-morbidities impacted this encounter? (DM, HTN, Smoking, COPD, CAD, Cancer, CVA, Hep., AIDS, mental health diagnosis, sleep apnea, morbid obesity)? @ -DM, HLD, HTN Was patient admitted / discharged? @ -Admitted. Lab work demonstrates leukocytosis with a white blood cell count of 12.6. She has hyperkalemia with a potassium of 6.1. She is also in acute renal failure with a creatinine of 4.09 and EGFR of 11. Previous creatinine from about 6 months ago was within normal limits. Lactic acid elevated at 8.5. CO2 is 9 and anion gap 21. COVID, influenza, and RSV testing negative. Urinalysis not suggestive of infection. Chest x-ray reveals no acute process. Renal ultrasound obtained due to the renal failure. This also revealed no acute findings. The elevated lactic acid and creatinine along with patient's hypotension were concerning for severe sepsis. However, no infectious source was initially identified. Regardless, we did proceed with sepsis treatment in the event an infectious source is present but not yet identified. Blood cultures were obtained and she was given 750 mg of Levaquin per sepsis criteria for broad-spectrum antibiotics. She was also given a bolus of 2.5 L of IV fluids per the 30-40mg/kg criteria and started on maintenance fluids at 130 mL an hour. Levaquin was given as she is allergic to cephalosporins. She was also treated with a hyper-K cocktail consisting of calcium gluconate, insulin, and Lokelma. On reevaluation she did start to complain of some indigestion and chest pain. Troponin was subsequently added on. Additionally, CT scan of the abdomen and pelvis was ordered and pending at the time of admission. Patient admitted to medicine for acute renal failure, lactic acidosis, and hyperkalemia. Consult placed for nephrology. Repeat potassium level ordered. Case discussed with ED attending Dr. Orellana. Undiagnosed new problem with uncertain prognosis? @ -None Drug Therapy requiring intensive monitoring for toxicity (Heparin, Nitro, Insulin, Cardizem)? @ -None Were any procedures done? @ -None Diagnosis/symptom? @ -Acute renal failure, lactic acidosis, hyperkalemia Acute, or Chronic, or Acute on Chronic? @ -Acute Uncomplicated (without systemic symptoms) or Complicated (systemic symptoms)? @ -Complicated Side effects of treatment? @ -None Exacerbation, Progression, or Severe Exacerbation] @ -Not applicable Poses a threat to life or bodily function? @ -Yes, can lead to septic shock and (Lina Baldwin) - Lab Data Lab Results 05/06/24 05/06/24 05/06/24 Range/Units 14:01 14:35 14:35 WBC 12.6 H (3.8-10.6) k/uL RBC 2.44 L (3.80-5.40) m/uL Hgb 8.8 L (11.4-16.0) gm/dL Hct 27.0 L (34.0-46.0) % MCV 110.7 H (80.0-100.0) fL MCH 36.0 H (25.0-35.0) pg MCHC 32.5 (31.0-37.0) g/dL RDW 17.7 H (11.5-15.5) % Plt Count 353 (150-450) k/uL MPV 9.8 Neutrophils % 77 % Lymphocytes % 15 % Monocytes % 5 % Eosinophils % 1 % Basophils % 0 % Neutrophils # 9.7 H (1.3-7.7) k/uL Lymphocytes # 1.9 (1.0-4.8) k/uL Monocytes # 0.6 (0-1.0) k/uL Eosinophils # 0.1 (0-0.7) k/uL Basophils # 0.0 (0-0.2) k/uL Manual Slide Review Performed Hypochromasia Slight Poikilocytosis (manual Present Anisocytosis Slight Macrocytosis Marked A Sodium 136 L (137-145) mmol/L Potassium 6.1 H* (3.5-5.1) mmol/L Chloride 106 (98-107) mmol/L Carbon Dioxide 9 L* (22-30) mmol/L Anion Gap 21 mmol/L BUN 68 H (7-17) mg/dL Creatinine 4.09 H (0.52-1.04) mg/dL Est GFR (CKD-EPI)AfAm 12 (>60 ml/min/1.73 sqM) Est GFR (CKD-EPI)NonAf 11 (>60 ml/min/1.73 sqM) Glucose 79 (74-99) mg/dL POC Glucose (mg/dL) 94 (70-110) mg/dL POC Glu [employer]ilermaker Welder ID Dedrick Quezada Lactic Ac Sepsis Rflx Plasma Lactic Acid Amrik (0.7-2.0) mmol/L Calcium 9.7 (8.4-10.2) mg/dL Phosphorus 5.8 H (2.5-4.5) mg/dL Magnesium 2.8 H (1.6-2.3) mg/dL Total Bilirubin 0.3 (0.2-1.3) mg/dL AST 119 H (14-36) U/L ALT 124 H (4-34) U/L Alkaline Phosphatase 76 (38-126) U/L Troponin I (0.000-0.034) ng/mL C-Reactive Protein (<1.0) mg/dL Total Protein 5.3 L (6.3-8.2) g/dL Albumin 3.5 (3.5-5.0) g/dL Procalcitonin (0.02-0.50) ng/mL Urine Color Urine Appearance (Clear) Urine pH (5.0-8.0) Ur Specific [place] (1.001-1.035) Urine Protein (Negative) Urine Glucose (UA) (Negative) Urine Ketones (Negative) Urine Blood (Negative) Urine Nitrite (Negative) Urine Bilirubin (Negative) Urine Urobilinogen (<2.0) mg/dL Ur Leukocyte Esterase (Negative) Urine RBC (0-5) /hpf Urine WBC (0-5) /hpf Ur Squamous Epith Cells (0-4) /hpf Amorphous Sediment (None) /hpf Urine Opiates Screen (Negative) Urine Methadone Screen (Negative) Ur Propoxyphene Screen (Negative) Urine Barbiturates (Negative) Ur Phencyclidine Scrn (Negative) Ur Amphetamine Screen (Negative) U Benzodiazepines Scrn (Negative) Urine Cocaine Screen (Negative) U Cannabinoids Screen (Negative) Urine Alcohol (Negative) U Creatinine Drug Scrn (>=20.0) mg/dL Influenza Type A (PCR) (Not Detectd) Influenza Type B (PCR) (Not Detectd) RSV (PCR) (Not Detectd) SARS-CoV-2 (PCR) (Not Detectd) 05/06/24 05/06/24 05/06/24 Range/Units 14:35 14:35 14:35 WBC (3.8-10.6) k/uL RBC (3.80-5.40) m/uL Hgb (11.4-16.0) gm/dL Hct (34.0-46.0) % MCV (80.0-100.0) fL MCH (25.0-35.0) pg MCHC (31.0-37.0) g/dL RDW (11.5-15.5) % Plt Count (150-450) k/uL MPV Neutrophils % % Lymphocytes % % Monocytes % % Eosinophils % % Basophils % % Neutrophils # (1.3-7.7) k/uL Lymphocytes # (1.0-4.8) k/uL Monocytes # (0-1.0) k/uL Eosinophils # (0-0.7) k/uL Basophils # (0-0.2) k/uL Manual Slide Review Hypochromasia Poikilocytosis (manual Anisocytosis Macrocytosis Sodium (137-145) mmol/L Potassium (3.5-5.1) mmol/L Chloride (98-107) mmol/L Carbon Dioxide (22-30) mmol/L Anion Gap mmol/L BUN (7-17) mg/dL Creatinine (0.52-1.04) mg/dL Est GFR (CKD-EPI)AfAm (>60 ml/min/1.73 sqM) Est GFR (CKD-EPI)NonAf (>60 ml/min/1.73 sqM) Glucose (74-99) mg/dL POC Glucose (mg/dL) (70-110) mg/dL POC Glu [employer]il[employer]aker Welder ID Lactic Ac Sepsis Rflx Plasma Lactic Acid Amrik 8.5 H* (0.7-2.0) mmol/L Calcium (8.4-10.2) mg/dL Phosphorus (2.5-4.5) mg/dL Magnesium (1.6-2.3) mg/dL Total Bilirubin (0.2-1.3) mg/dL AST (14-36) U/L ALT (4-34) U/L Alkaline Phosphatase (38-126) U/L Troponin I (0.000-0.034) ng/mL C-Reactive Protein <0.5 (<1.0) mg/dL Total Protein (6.3-8.2) g/dL Albumin (3.5-5.0) g/dL Procalcitonin (0.02-0.50) ng/mL Urine Color Urine Appearance (Clear) Urine pH (5.0-8.0) Ur Specific [place] (1.001-1.035) Urine Protein (Negative) Urine Glucose (UA) (Negative) Urine Ketones (Negative) Urine Blood (Negative) Urine Nitrite (Negative) Urine Bilirubin (Negative) Urine Urobilinogen (<2.0) mg/dL Ur Leukocyte Esterase (Negative) Urine RBC (0-5) /hpf Urine WBC (0-5) /hpf Ur Squamous Epith Cells (0-4) /hpf Amorphous Sediment (None) /hpf Urine Opiates Screen (Negative) Urine Methadone Screen (Negative) Ur Propoxyphene Screen (Negative) Urine Barbiturates (Negative) Ur Phencyclidine Scrn (Negative) Ur Amphetamine Screen (Negative) U Benzodiazepines Scrn (Negative) Urine Cocaine Screen (Negative) U Cannabinoids Screen (Negative) Urine Alcohol (Negative) U Creatinine Drug Scrn (>=20.0) mg/dL Influenza Type A (PCR) Not Detected (Not Detectd) Influenza Type B (PCR) Not Detected (Not Detectd) RSV (PCR) Not Detected (Not Detectd) SARS-CoV-2 (PCR) Not Detected (Not Detectd) 05/06/24 05/06/24 05/06/24 Range/Units 14:35 15:20 16:18 WBC (3.8-10.6) k/uL RBC (3.80-5.40) m/uL Hgb (11.4-16.0) gm/dL Hct (34.0-46.0) % MCV (80.0-100.0) fL MCH (25.0-35.0) pg MCHC (31.0-37.0) g/dL RDW (11.5-15.5) % Plt Count (150-450) k/uL MPV Neutrophils % % Lymphocytes % % Monocytes % % Eosinophils % % Basophils % % Neutrophils # (1.3-7.7) k/uL Lymphocytes # (1.0-4.8) k/uL Monocytes # (0-1.0) k/uL Eosinophils # (0-0.7) k/uL Basophils # (0-0.2) k/uL Manual Slide Review Hypochromasia Poikilocytosis (manual Anisocytosis Macrocytosis Sodium (137-145) mmol/L Potassium (3.5-5.1) mmol/L Chloride (98-107) mmol/L Carbon Dioxide (22-30) mmol/L Anion Gap mmol/L BUN (7-17) mg/dL Creatinine (0.52-1.04) mg/dL Est GFR (CKD-EPI)AfAm (>60 ml/min/1.73 sqM) Est GFR (CKD-EPI)NonAf (>60 ml/min/1.73 sqM) Glucose (74-99) mg/dL POC Glucose (mg/dL) 114 H (70-110) mg/dL POC Glu [employer]der ID Joseph Velásquez Lactic Ac Sepsis Rflx Y Plasma Lactic Acid Amrik (0.7-2.0) mmol/L Calcium (8.4-10.2) mg/dL Phosphorus (2.5-4.5) mg/dL Magnesium (1.6-2.3) mg/dL Total Bilirubin (0.2-1.3) mg/dL AST (14-36) U/L ALT (4-34) U/L Alkaline Phosphatase (38-126) U/L Troponin I (0.000-0.034) ng/mL C-Reactive Protein (<1.0) mg/dL Total Protein (6.3-8.2) g/dL Albumin (3.5-5.0) g/dL Procalcitonin 0.83 H (0.02-0.50) ng/mL Urine Color Urine Appearance (Clear) Urine pH (5.0-8.0) Ur Specific [place] (1.001-1.035) Urine Protein (Negative) Urine Glucose (UA) (Negative) Urine Ketones (Negative) Urine Blood (Negative) Urine Nitrite (Negative) Urine Bilirubin (Negative) Urine Urobilinogen (<2.0) mg/dL Ur Leukocyte Esterase (Negative) Urine RBC (0-5) /hpf Urine WBC (0-5) /hpf Ur Squamous Epith Cells (0-4) /hpf Amorphous Sediment (None) /hpf Urine Opiates Screen (Negative) Urine Methadone Screen (Negative) Ur Propoxyphene Screen (Negative) Urine Barbiturates (Negative) Ur Phencyclidine Scrn (Negative) Ur Amphetamine Screen (Negative) U Benzodiazepines Scrn (Negative) Urine Cocaine Screen (Negative) U Cannabinoids Screen (Negative) Urine Alcohol (Negative) U Creatinine Drug Scrn (>=20.0) mg/dL Influenza Type A (PCR) (Not Detectd) Influenza Type B (PCR) (Not Detectd) RSV (PCR) (Not Detectd) SARS-CoV-2 (PCR) (Not Detectd) 05/06/24 05/06/24 05/06/24 Range/Units 17:19 17:19 17:43 WBC (3.8-10.6) k/uL RBC (3.80-5.40) m/uL Hgb (11.4-16.0) gm/dL Hct (34.0-46.0) % MCV (80.0-100.0) fL MCH (25.0-35.0) pg MCHC (31.0-37.0) g/dL RDW (11.5-15.5) % Plt Count (150-450) k/uL MPV Neutrophils % % Lymphocytes % % Monocytes % % Eosinophils % % Basophils % % Neutrophils # (1.3-7.7) k/uL Lymphocytes # (1.0-4.8) k/uL Monocytes # (0-1.0) k/uL Eosinophils # (0-0.7) k/uL Basophils # (0-0.2) k/uL Manual Slide Review Hypochromasia Poikilocytosis (manual Anisocytosis Macrocytosis Sodium (137-145) mmol/L Potassium (3.5-5.1) mmol/L Chloride (98-107) mmol/L Carbon Dioxide (22-30) mmol/L Anion Gap mmol/L BUN (7-17) mg/dL Creatinine (0.52-1.04) mg/dL Est GFR (CKD-EPI)AfAm (>60 ml/min/1.73 sqM) Est GFR (CKD-EPI)NonAf (>60 ml/min/1.73 sqM) Glucose (74-99) mg/dL POC Glucose (mg/dL) (70-110) mg/dL POC Glu [employer]der ID Lactic Ac Sepsis Rflx Plasma Lactic Acid Amrik 8.3 H* (0.7-2.0) mmol/L Calcium (8.4-10.2) mg/dL Phosphorus (2.5-4.5) mg/dL Magnesium (1.6-2.3) mg/dL Total Bilirubin (0.2-1.3) mg/dL AST (14-36) U/L ALT (4-34) U/L Alkaline Phosphatase (38-126) U/L Troponin I (0.000-0.034) ng/mL C-Reactive Protein (<1.0) mg/dL Total Protein (6.3-8.2) g/dL Albumin (3.5-5.0) g/dL Procalcitonin (0.02-0.50) ng/mL Urine Color Colorless Urine Appearance Clear (Clear) Urine pH 5.5 (5.0-8.0) Ur Specific [place] 1.013 (1.001-1.035) Urine Protein 2+ H (Negative) Urine Glucose (UA) Negative (Negative) Urine Ketones Negative (Negative) Urine Blood Large H (Negative) Urine Nitrite Negative (Negative) Urine Bilirubin Negative (Negative) Urine Urobilinogen <2.0 (<2.0) mg/dL Ur Leukocyte Esterase Negative (Negative) Urine RBC <1 (0-5) /hpf Urine WBC 1 (0-5) /hpf Ur Squamous Epith Cells 1 (0-4) /hpf Amorphous Sediment Rare H (None) /hpf Urine Opiates Screen Positive A (Negative) Urine Methadone Screen Negative (Negative) Ur Propoxyphene Screen Negative (Negative) Urine Barbiturates Negative (Negative) Ur Phencyclidine Scrn Negative (Negative) Ur Amphetamine Screen Negative (Negative) U Benzodiazepines Scrn Negative (Negative) Urine Cocaine Screen Negative (Negative) U Cannabinoids Screen Negative (Negative) Urine Alcohol Negative (Negative) U Creatinine Drug Scrn 37.8 (>=20.0) mg/dL Influenza Type A (PCR) (Not Detectd) Influenza Type B (PCR) (Not Detectd) RSV (PCR) (Not Detectd) SARS-CoV-2 (PCR) (Not Detectd) 05/06/24 Range/Units 18:06 WBC (3.8-10.6) k/uL RBC (3.80-5.40) m/uL Hgb (11.4-16.0) gm/dL Hct (34.0-46.0) % MCV (80.0-100.0) fL MCH (25.0-35.0) pg MCHC (31.0-37.0) g/dL RDW (11.5-15.5) % Plt Count (150-450) k/uL MPV Neutrophils % % Lymphocytes % % Monocytes % % Eosinophils % % Basophils % % Neutrophils # (1.3-7.7) k/uL Lymphocytes # (1.0-4.8) k/uL Monocytes # (0-1.0) k/uL Eosinophils # (0-0.7) k/uL Basophils # (0-0.2) k/uL Manual Slide Review Hypochromasia Poikilocytosis (manual Anisocytosis Macrocytosis Sodium (137-145) mmol/L Potassium (3.5-5.1) mmol/L Chloride (98-107) mmol/L Carbon Dioxide (22-30) mmol/L Anion Gap mmol/L BUN (7-17) mg/dL Creatinine (0.52-1.04) mg/dL Est GFR (CKD-EPI)AfAm (>60 ml/min/1.73 sqM) Est GFR (CKD-EPI)NonAf (>60 ml/min/1.73 sqM) Glucose (74-99) mg/dL POC Glucose (mg/dL) (70-110) mg/dL POC Glu [employer]der ID Lactic Ac Sepsis Rflx Plasma Lactic Acid Amrik (0.7-2.0) mmol/L Calcium (8.4-10.2) mg/dL Phosphorus (2.5-4.5) mg/dL Magnesium (1.6-2.3) mg/dL Total Bilirubin (0.2-1.3) mg/dL AST (14-36) U/L ALT (4-34) U/L Alkaline Phosphatase (38-126) U/L Troponin I 0.018 (0.000-0.034) ng/mL C-Reactive Protein (<1.0) mg/dL Total Protein (6.3-8.2) g/dL Albumin (3.5-5.0) g/dL Procalcitonin (0.02-0.50) ng/mL Urine Color Urine Appearance (Clear) Urine pH (5.0-8.0) Ur Specific [place] (1.001-1.035) Urine Protein (Negative) Urine Glucose (UA) (Negative) Urine Ketones (Negative) Urine Blood (Negative) Urine Nitrite (Negative) Urine Bilirubin (Negative) Urine Urobilinogen (<2.0) mg/dL Ur Leukocyte Esterase (Negative) Urine RBC (0-5) /hpf Urine WBC (0-5) /hpf Ur Squamous Epith Cells (0-4) /hpf Amorphous Sediment (None) /hpf Urine Opiates Screen (Negative) Urine Methadone Screen (Negative) Ur Propoxyphene Screen (Negative) Urine Barbiturates (Negative) Ur Phencyclidine Scrn (Negative) Ur Amphetamine Screen (Negative) U Benzodiazepines Scrn (Negative) Urine Cocaine Screen (Negative) U Cannabinoids Screen (Negative) Urine Alcohol (Negative) U Creatinine Drug Scrn (>=20.0) mg/dL Influenza Type A (PCR) (Not Detectd) Influenza Type B (PCR) (Not Detectd) RSV (PCR) (Not Detectd) SARS-CoV-2 (PCR) (Not Detectd) Critical Care Time Critical Care Time: Yes <Lina Baldwin - Last Filed: 05/09/24 19:21> Critical Care Time: >35 minutes (Lina Baldwin) Disposition <Lina Baldwin - Last Filed: 05/09/24 19:21> <Mallory Orellana - Last Filed: 05/14/24 21:13> Clinical Impression: Acute renal failure, Lactic acidosis, Hyperkalemia Disposition: ADMITTED IP TO THIS HOSP
[2024-05-06 15:46] LABS: Poikilocytosis (M) Present
--- NOTE | 2024-05-06 15:47 | XR ---
EXAMINATION TYPE: XR chest 2V DATE OF EXAM: 05/06/2024 3:42 PM COMPARISON: Prior chest x-ray June 04, 2021 CLINICAL INDICATION: Female, 69 years old with history of Weakness, TECHNIQUE: Frontal and lateral views of the chest are obtained. FINDINGS: Elevated right hemidiaphragm redemonstrated. There is no focal air space opacity, pleural effusion, or pneumothorax seen. The cardiac silhouette size is within normal limits. Extensive surgi makayla change of the cervical spine is partially imaged similar to prior. IMPRESSION: No acute cardiopulmonary process. [facility], , 05/06/2024 3:44 PM
[2024-05-06] MEDS: DEXTROSE 50% SYRINGE 50 ML IVP ONE (15:51)
[2024-05-06] MEDS: CALCIUM GLUCONATE IN NACL 1 GM in SALINE 1 100ML.BAG IVPB ONE (15:51)
[2024-05-06] MEDS: SODIUM ZIRCONIUM CYCLOSILICATE 10 GM PACKET PO ONE (15:51)
[2024-05-06] MEDS: SODIUM CHLORIDE 0.9% 500 ML 500 ML IV STA (15:52)
[2024-05-06] MEDS: INSULIN REGULAR 100 UNIT/ML VIAL (IV) IV ONE (15:52)
[2024-05-06 16:19] LABS: Glucose,Whole Blood 114 mg/dL (70-110)
--- NOTE | 2024-05-06 16:29 | US ---
EXAMINATION TYPE: US kidneys/renal and bladder DATE OF EXAM: 05/06/2024 COMPARISON: CT 2017 CLINICAL INDICATION: Female, 69 years old with history of Acute renal failure; TECHNIQUE: Grayscale imaging of the bilateral kidneys and urinary bladder: FINDINGS: EXAM MEASUREMENTS: Right Kidney: 11.4 x 5.3 x 5.2 cm Left Kidney: 11.2 x 5.8 x 4.7 cm Right Kidney: no hydronephrosis or masses seen Left Kidney: no hydronephrosis or masses seen Bladder: wnl Bilateral Jets seen: no There is no evidence for hydronephrosis at this point in time. No nephrolithiasis is seen. No ousmane s are identified. The urinary bladder is anechoic. IMPRESSION: No hydronephrosis is seen bilaterally. [facility], , 05/06/2024 4:26 PM
[2024-05-06] MEDS: LEVOFLOXACIN 750MG-D5W PMX 750 MG in DEXTROSE/WATER 1 150ML.BAG IVPB STA (16:30)
[2024-05-06] MEDS: LACTATED RINGERS 1,000 ML IV SCH (17:10)
[2024-05-06] MEDS: DEXTROSE 10% IN WATER 500 ML in EMPTY BAG 1 BAG IV SCH ×2 (17:11→21:47)
[2024-05-06 17:55] LABS: Amorphous Sediment,Urine Rare /hpf; Appearance,Urine Clear (Clear); Bilirubin,Urine Negative (Negative); Blood,Urine Large (Negative); Color,Urine Colorless; Glucose,Urine (UA) Negative (Negative); Ketones,Urine Negative (Negative); Leukocyte Esterase,Urine Negative (Negative); Nitrite,Urine Negative (Negative); PH, Urine 5.5 (5.0-8.0); Protein,Urine 2+ (Negative); RBC,Urine <1 /hpf (0-5); Specific Gravity,Urine 1.013 (1.001-1.035); Squamous Epithelial Cell,Urine 1 /hpf (0-4); Urobilinogen,Urine <2.0 mg/dL (<2.0); WBC,Urine 1 /hpf (0-5)
[2024-05-06] MEDS ORDERED: MORPHINE SULFATE 4 MG/ML SYRINGE IV PRN (18:15)
[2024-05-06] MEDS ORDERED: NALOXONE 0.4 MG/ML 1 ML VIAL IV PRN (18:15)
[2024-05-06] MEDS ORDERED: HYDROcodone/APAP 5-325MG 1 EACH TAB PO PRN (18:15)
[2024-05-06] MEDS ORDERED: HYDROcodone/APAP 10-325MG 1 EACH TAB PO PRN (18:16)
[2024-05-06] MEDS: FAMOTIDINE 20 MG/2 ML VIAL IV STA (18:44)
[2024-05-06] MEDS: PANTOPRAZOLE 40 MG/10 ML VIAL IVP STA (18:44)
--- NOTE | 2024-05-06 18:51 | CT ---
EXAMINATION TYPE: CT ChestAbdPelvis wo con DATE OF EXAM: 05/06/2024 6:43 PM COMPARISON: 05/12/2021 CLINICAL INDICATION: Female, 69 years old with history of Severe sepsis, Severe sepsis. TECHNIQUE: Axial images at 5 mm thick sections. Reconstructed images in the coronal plane. Delayed images through the kidneys. Contrast used: mL of , (none if empty) Oral contrast used: (none if empty) CT DLP: 1280.7 mGycm, Automated exposure control for dose reduction was used. FINDINGS: CT CHEST: Portion of the thyroid visualized is normal. Some minimal right pleural effusion is present. Mild streak atelectasis in the posterior right lung b ase. There is elevation of the right diaphragm. No enlarged mediastinal or hilar adenopathy is evident. The ascending aorta diameter at the level of the main pulmonary artery is 3.8 cm. The main pulmonary artery diameter at the bifurcation is 3.[address] ABDOMEN: Liver: Normal Spleen: Normal Pancreas: Normal Adrenal glands: The adrenal glands are normal. Gallbladder: Normal Kidneys: No masses are evident. No hydronephrosis is present. No cysts are present. No renal stone s are evident. Aorta: Vascular calcification is within the aorta. Inferior vena cava: Normal. CT PELVIS: Loops of bowel within the abdomen and pelvis are normal. This study is without oral contrast limi ting bowel evaluation. Appendix: Normal as visualized. No inflammatory changes evident. Urinary bladder: Decompressed and cannot be evaluated Genitourinary structures: Uterus and ovaries are not identified Osseous structures: No suspicious lytic or sclerotic lesions. There is limitation due to beam hardeni ng artifact from cervical and lumbar fixation IMPRESSION: 1. Chronic elevation right diaphragm. 2. No suspicious source for infection [facility], , 05/06/2024 6:49 PM
[2024-05-06] MEDS: METOPROLOL TARTRATE 25 MG TAB PO SCH (18:57)
[2024-05-06] MEDS: SODIUM CHLORIDE 0.9% 1,000 ML IV ONE (19:18)
[2024-05-06 19:43] LABS: INR 1.1 (<1.2); Partial Thromboplastin Time 27.6 sec (22.0-30.0); Prothrombin Time 12.2 sec (10.0-12.5)
[2024-05-06] MEDS: APIXABAN 5 MG TAB PO SCH (20:25)
[2024-05-06] MEDS: ATORVASTATIN 80 MG TAB PO SCH (20:25)
[2024-05-06] MEDS ORDERED: NON FORMULARY DRUG (Metformin Hcl [Glucophage] 1,000 MG Tablet) PO SCH (21:00)
[2024-05-06] MEDS ORDERED: VANCOMYCIN IV PER PHARMACY 1 EACH MISC MISCELLANE PRN (21:26)
[2024-05-06 21:29] LABS: Glucose,Whole Blood 29 mg/dL (70-110)
[2024-05-06 21:45] LABS: Glucose,Whole Blood 147 mg/dL (70-110)
[2024-05-06] MEDS: DEXTROSE 50% SYRINGE 50 ML IVP STA (21:47)
[2024-05-06] MEDS: PIPERACILLIN-TAZOBACTAM 3.375 GM in SODIUM CHLORIDE 0.9% 100 ML IVPB SCH (21:54)
[2024-05-06] MEDS: DEXTROSE 5% IN WATER 1,000 ML with SODIUM BICARB (1 MEQ/ML) 150 ML IV SCH (22:11)
[2024-05-06] MEDS: VANCOMYCIN 1,500 MG in SODIUM CHLORIDE 0.9% 500 ML 500 ML IVPB ONE (22:15)
--- NOTE | 2024-05-06 22:22 | P.HPIM ---
History of Present Illness H&P Date: 05/06/24 Chief Complaint: Hypoglycemia Patient is a 69-year-old female with past medical history of diabetes, hypertension, hyperlipidemia, hypothyroidism, osteoarthritis, and history of DVT presents to the ER was chief complaint of low blood sugar and weakness. She currently takes Lantus, Fiasp, Metformin and Ozempic for her diabetes. Patient states this morning her found her altered and her sugar was 34. She states that she blacked out in her bed so she did not hit her head or have any trauma. He called EMS and she was administered an amp of dextrose. Later in her sugar dropped again and she received another amp of dextrose and then was brought in. Patient states she has been having a decreased appetite and that her sugars were also low yesterday, but she corrected that with eating applesauce and oatmeal. Patient denies chest pain, shortness of breath, headaches, fevers, chills, nausea, vomiting, diarrhea. ED documentation reviewed. In the ED patient was treated with 5 fluid boluses, calcium gluconate, Lokelma and Levaquin. Vitals on admission temperature 97.4, heart rate 79, respiratory rate 19, blood pressure 95/47, O2 saturation 96% on room air EKG independently interpreted as junctional rhythm with ventricular rate 76 bpm and QTc 434 ms CXR shows no acute cardiopulmonary process CT of abdomen pelvis showed chronic elevation of the right diaphragm, no suspicious source of infection Kidney bladder ultrasound showed an anechoic bladder, no hydronephrosis, no nephrolithiasis and no masses Labs on admission show WBCs 12.6 with left shift, hemoglobin 8.8, MCV 110.7, platelets 353. PT 12.2, INR 1.1, PTT 27.6. Sodium 136, potassium 5.6, chloride 106, bicarb 9, BUN 68, creatinine 4.09, glucose 114. Lactate 8.3. Phosphorus 5.8, magnesium 2.8, AST 119, ALT 124. Troponin negative. CRP negative. Urinalysis positive for proteins and blood. Cepheid panel was negative. Review of systems: Pertinent positives and negatives as discussed in HPI, a complete review of systems was performed and all other systems are negative. Social history: Tobacco: none Alcohol: none Recreational drugs: none Travel: none Sick contacts: yes Physical examination: Limited due to debility and somnolence Vital signs reviewed General: nontoxic, no distress, appears at stated age Derm: warm, dry, intact Head: atraumatic, normocephalic, symmetric Eyes: anicteric sclera Cardiovascular: S1 S2 reg, no murmur Lungs: CTA bilateral, no rhonchi, no rales, no accessory muscle use Abdominal: soft, non-tender to palpation, nondistended Extremities: Livedo reticularis noted Neuro: Alert, Oriented to person, time and place, limited due to somnolence Psych: well appearing, appropriate affect Assessment/Plan: 69-year-old female with past medical history of diabetes who presented to the ED with chief complaint of low blood sugar. In the ED patient remained hypotensive after numerous fluid boluses. Patient will likely require pressors. Patient will be admitted to ICU for evaluation of severe sepsis with no source of infection. Spoke with ICU physician who will accept the admission. Active: Severe septic shock without clear source of infection, persistent hypoglycemia , refractory hypotension Refractory hypotension to multiple fluid boluses in ED Leukocytosis WBCs 12.6 with left shift Cepheid panel was negative CXR shows no acute cardiopulmonary process CT of abdomen pelvis showed chronic elevation of the right diaphragm, no suspic ious source of infection Patient will be admitted to ICU Started Levophed 0.03mcg/kg/hr D10 at 50 mL/h Zosyn 3.375 g every 8 hours Vancomycin per pharmacy dosing Solu-Cortef 100 mg IV every 8 hours Cardiac monitoring Follow-up blood culture Follow-up procalcitonin Follow up [facility] ICU Consult Acute renal failure in the setting of anion gap metabolic acidosis, rhabdomyolysis Kidney bladder ultrasound showed an anechoic bladder, no hydronephrosis, no nephrolithiasis and no masses Lactate 8.3 BUN 68, creatinine 4.09 Phosphorus 5.8, magnesium 2.8 CPK is 2190 Follow-up BMP D5 with sodium bicarb @125ml/hr Check CPK Consult Nephro Persistent hypoglycemia Will hold home meds Requiring frequent D50 boluses start D10 at 50 cc per hour Accucheks every hour Hypoglycemia precautions possibly secondary to insulin in light of severe FLORIAN Hyperkalemia 6.1 Patient received 1 dose of Lokelma in the ER Continue to trend Follow up potassium 5.6 Follow up K in 4 hours Macrocytic anemia versus anemia of chronic disease Patient denies GI Bleeding Hemoglobin 8.8, MCV 110.7 FOBT Continue to monitor Chronic: Diabetes mellitus, Glucose checks every hour Hypoglycemia precautions Hypothyroidism Continue Synthroid 112 mcg daily Hyperlipidemia Will hold Crestor Patient has rhabdo and elevated liver enzymes GERD Continue Protonix daily F: D10 at 50 mL/h, D5 with sodium bicarb at 125ml/hr E: Replete as needed N: Consistent carb diet A: As tolerated DVT prophylaxis: Eliquis 5 mg twice daily, recent history of DVT unknown accuity The patient is admitted to the ICU with an anticipated more than 2 midnight stay for evaluation of severe sepsis CODE STATUS: Full code Discussed with: Patient Anticipated discharge place: Pending clinical course admission to the ICU , guarded prognosis I have seen and evaluated the patient today. I Discussed the case with the resident and agree with the resident's findings I edited the assessment and plan as necessary as documented in the resident's note. Past Medical History Past Medical History: Diabetes Mellitus, Deep Vein Thrombosis (DVT), Hyperlipidemia, Hypertension, Osteoarthritis (OA), Thyroid Disorder Additional Past Medical History / Comment(s): DVT L Leg History of Any Multi-Drug Resistant Organisms: ESBL, MRSA Date of last positivie culture/infection: 11/05/23 - ESBL; 01/27/17 - MRSA MDRO Source:: ESBL - URINE; MRSA - blood Past Surgical History: Hysterectomy, Orthopedic Surgery Additional Past Surgical History / Comment(s): Rectocele;hand,ankle and knee surg.; Past Anesthesia/Blood Transfusion Reactions: No Reported Reaction Past Psychological History: No Psychological Hx Reported Past Alcohol Use History: Rare Past Drug Use History: None Reported - Past Family History Brother(s) Family Medical History: Deep Vein Thrombosis (DVT) Mother Family Medical History: Coronary Artery Disease (CAD) Father Family Medical History: Diabetes Mellitus Medications and Allergies Home Medications Medication Instructions Recorded Confirmed Type RX: Apixaban [Eliquis] 5 mg PO BID 04/24/21 05/06/24 History RX: Folic Acid 1 mg PO DAILY 04/24/21 05/06/24 History RX: HYDROcodone/APAP 10-325MG 1 tab PO Q6HR PRN 04/24/21 05/06/24 History [[place] 10-325] RX: metFORMIN HCL [Glucophage] 1,000 mg PO BID 04/24/21 05/06/24 History RX: Insulin Glargine,Hum.rec.anlog 24 - 30 unit SQ BID 05/12/21 05/06/24 History [Lantus Solostar Pen] RX: Metoprolol Tartrate [Lopressor] 25 mg PO DIRECTED 05/12/21 05/06/24 History DULoxetine HCL [Cymbalta] 30 mg PO DAILY 05/06/24 05/06/24 History Insulin Aspart (Niacinamide) See Protocol SQ DIRECTED 05/06/24 05/06/24 Hist ory [Fiasp 100 Unit/ml Flextouch Pen] Levothyroxine Sodium [Synthroid] 112 mcg PO DAILY 05/06/24 05/06/24 History Metabolism Support Vitamin B-12 500 mcg PO DAILY 05/06/24 05/06/24 History 500mcg Rosuvastatin Calcium [Crestor] 40 mg PO HS 05/06/24 05/06/24 History Semaglutide [Ozempic] 1 mg SQ MO 05/06/24 05/06/24 History amLODIPine BESYLATE/BENAZEPRIL 1 cap PO DAILY 05/06/24 05/06/24 History [Lotrel 10-20 mg Capsule] Allergies Allergy/AdvReac Type Severity Reaction Status Date / Time cefazolin Allergy Severe Rash/Hives Verified 05/06/24 18:03 Physical Exam Vitals: Vital Signs Temp Pulse Resp BP Pulse Ox 05/06/24 18:00 86 17 82/39 95 05/06/24 17:12 84 18 90/42 92 L 05/06/24 14:46 78 18 104/47 96 05/06/24 13:54 97.4 F L 79 19 95/47 96 Intake and Output 05/06/24 05/06/24 05/06/24 06:59 14:59 22:59 Other: Weight 82.554 kg Results CBC & Chem 7: 05/06/24 14:35 05/06/24 23:12 Labs: Abnormal Lab Results - Last 24 Hours (Table) 05/06/24 05/06/24 05/06/24 Range/Units 14:35 14:35 14:35 WBC 12.6 H (3.8-10.6) k/uL RBC 2.44 L (3.80-5.40) m/uL Hgb 8.8 L (11.4-16.0) gm/dL Hct 27.0 L (34.0-46.0) % MCV 110.7 H (80.0-100.0) fL MCH 36.0 H (25.0-35.0) pg RDW 17.7 H (11.5-15.5) % Neutrophils # 9.7 H (1.3-7.7) k/uL Macrocytosis Marked A Sodium 136 L (137-145) mmol/L Potassium 6.1 H* (3.5-5.1) mmol/L Carbon Dioxide 9 L* (22-30) mmol/L BUN 68 H (7-17) mg/dL Creatinine 4.09 H (0.52-1.04) mg/dL POC Glucose (mg/dL) (70-110) mg/dL Plasma Lactic Acid Amrik 8.5 H* (0.7-2.0) mmol/L Phosphorus 5.8 H (2.5-4.5) mg/dL Magnesium 2.8 H (1.6-2.3) mg/dL AST 119 H (14-36) U/L ALT 124 H (4-34) U/L Total Protein 5.3 L (6.3-8.2) g/dL Urine Protein (Negative) Urine Blood (Negative) Amorphous Sediment (None) /hpf 05/06/24 05/06/24 05/06/24 Range/Units 16:18 17:19 17:43 WBC (3.8-10.6) k/uL RBC (3.80-5.40) m/uL Hgb (11.4-16.0) gm/dL Hct (34.0-46.0) % MCV (80.0-100.0) fL MCH (25.0-35.0) pg RDW (11.5-15.5) % Neutrophils # (1.3-7.7) k/uL Macrocytosis Sodium (137-145) mmol/L Potassium (3.5-5.1) mmol/L Carbon Dioxide (22-30) mmol/L BUN (7-17) mg/dL Creatinine (0.52-1.04) mg/dL POC Glucose (mg/dL) 114 H (70-110) mg/dL Plasma Lactic Acid Amrik 8.3 H* (0.7-2.0) mmol/L Phosphorus (2.5-4.5) mg/dL Magnesium (1.6-2.3) mg/dL AST (14-36) U/L ALT (4-34) U/L Total Protein (6.3-8.2) g/dL Urine Protein 2+ H (Negative) Urine Blood Large H (Negative) Amorphous Sediment Rare H (None) /hpf
[2024-05-06] MEDS: NOREPINEPHRINE 4 MG in SODIUM CHLORIDE 0.9% 250 ML IV SCH (22:33)
[2024-05-06 22:35] LABS: Glucose,Whole Blood 106 mg/dL (70-110)
[2024-05-06 23:08] LABS: Glucose,Whole Blood 96 mg/dL (70-110)
--- NOTE | 2024-05-06 23:21 | ED ---
Medical Decision Making - Medical Decision Making Patient was previously admitted. Patient became hypotensive and required vasopressors while holding in the ER. I was notified by sound physician group Dr. Poe and I agreed to assist by placing a central line. Central line placed on the left femoral vein. Patient tolerated the procedure well. - Lab Data Result diagrams: 05/06/24 14:35 05/06/24 20:35 Lab Results 05/06/24 05/06/24 05/06/24 Range/Units 14:01 14:35 14:35 WBC 12.6 H (3.8-10.6) k/uL RBC 2.44 L (3.80-5.40) m/uL Hgb 8.8 L (11.4-16.0) gm/dL Hct 27.0 L (34.0-46.0) % MCV 110.7 H (80.0-100.0) fL MCH 36.0 H (25.0-35.0) pg MCHC 32.5 (31.0-37.0) g/dL RDW 17.7 H (11.5-15.5) % Plt Count 353 (150-450) k/uL MPV 9.8 Neutrophils % 77 % Lymphocytes % 15 % Monocytes % 5 % Eosinophils % 1 % Basophils % 0 % Neutrophils # 9.7 H (1.3-7.7) k/uL Lymphocytes # 1.9 (1.0-4.8) k/uL Monocytes # 0.6 (0-1.0) k/uL Eosinophils # 0.1 (0-0.7) k/uL Basophils # 0.0 (0-0.2) k/uL Manual Slide Review Performed Hypochromasia Slight Poikilocytosis (manual Present Anisocytosis Slight Macrocytosis Marked A Sodium 136 L (137-145) mmol/L Potassium 6.1 H* (3.5-5.1) mmol/L Chloride 106 (98-107) mmol/L Carbon Dioxide 9 L* (22-30) mmol/L Anion Gap 21 mmol/L BUN 68 H (7-17) mg/dL Creatinine 4.09 H (0.52-1.04) mg/dL Est GFR (CKD-EPI)AfAm 12 (>60 ml/min/1.73 sqM) Est GFR (CKD-EPI)NonAf 11 (>60 ml/min/1.73 sqM) Glucose 79 (74-99) mg/dL POC Glucose (mg/dL) 94 (70-110) mg/dL POC Glu Finance Analyst ID Dedrick Quezada Lactic Ac Sepsis Rflx Plasma Lactic Acid Amrik (0.7-2.0) mmol/L Calcium 9.7 (8.4-10.2) mg/dL Phosphorus 5.8 H (2.5-4.5) mg/dL Magnesium 2.8 H (1.6-2.3) mg/dL Total Bilirubin 0.3 (0.2-1.3) mg/dL AST 119 H (14-36) U/L ALT 124 H (4-34) U/L Alkaline Phosphatase 76 (38-126) U/L Troponin I (0.000-0.034) ng/mL C-Reactive Protein (<1.0) mg/dL Total Protein 5.3 L (6.3-8.2) g/dL Albumin 3.5 (3.5-5.0) g/dL Procalcitonin (0.02-0.50) ng/mL Urine Color Urine Appearance (Clear) Urine pH (5.0-8.0) Ur Specific [place] (1.001-1.035) Urine Protein (Negative) Urine Glucose (UA) (Negative) Urine Ketones (Negative) Urine Blood (Negative) Urine Nitrite (Negative) Urine Bilirubin (Negative) Urine Urobilinogen (<2.0) mg/dL Ur Leukocyte Esterase (Negative) Urine RBC (0-5) /hpf Urine WBC (0-5) /hpf Ur Squamous Epith Cells (0-4) /hpf Amorphous Sediment (None) /hpf Influenza Type A (PCR) (Not Detectd) Influenza Type B (PCR) (Not Detectd) RSV (PCR) (Not Detectd) SARS-CoV-2 (PCR) (Not Detectd) 05/06/24 05/06/24 05/06/24 Range/Units 14:35 14:35 14:35 WBC (3.8-10.6) k/uL RBC (3.80-5.40) m/uL Hgb (11.4-16.0) gm/dL Hct (34.0-46.0) % MCV (80.0-100.0) fL MCH (25.0-35.0) pg MCHC (31.0-37.0) g/dL RDW (11.5-15.5) % Plt Count (150-450) k/uL MPV Neutrophils % % Lymphocytes % % Monocytes % % Eosinophils % % Basophils % % Neutrophils # (1.3-7.7) k/uL Lymphocytes # (1.0-4.8) k/uL Monocytes # (0-1.0) k/uL Eosinophils # (0-0.7) k/uL Basophils # (0-0.2) k/uL Manual Slide Review Hypochromasia Poikilocytosis (manual Anisocytosis Macrocytosis Sodium (137-145) mmol/L Potassium (3.5-5.1) mmol/L Chloride (98-107) mmol/L Carbon Dioxide (22-30) mmol/L Anion Gap mmol/L BUN (7-17) mg/dL Creatinine (0.52-1.04) mg/dL Est GFR (CKD-EPI)AfAm (>60 ml/min/1.73 sqM) Est GFR (CKD-EPI)NonAf (>60 ml/min/1.73 sqM) Glucose (74-99) mg/dL POC Glucose (mg/dL) (70-110) mg/dL POC Glu Finance Analyst ID Lactic Ac Sepsis Rflx Plasma Lactic Acid Amrik 8.5 H* (0.7-2.0) mmol/L Calcium (8.4-10.2) mg/dL Phosphorus (2.5-4.5) mg/dL Magnesium (1.6-2.3) mg/dL Total Bilirubin (0.2-1.3) mg/dL AST (14-36) U/L ALT (4-34) U/L Alkaline Phosphatase (38-126) U/L Troponin I (0.000-0.034) ng/mL C-Reactive Protein <0.5 (<1.0) mg/dL Total Protein (6.3-8.2) g/dL Albumin (3.5-5.0) g/dL Procalcitonin (0.02-0.50) ng/mL Urine Color Urine Appearance (Clear) Urine pH (5.0-8.0) Ur Specific [place] (1.001-1.035) Urine Protein (Negative) Urine Glucose (UA) (Negative) Urine Ketones (Negative) Urine Blood (Negative) Urine Nitrite (Negative) Urine Bilirubin (Negative) Urine Urobilinogen (<2.0) mg/dL Ur Leukocyte Esterase (Negative) Urine RBC (0-5) /hpf Urine WBC (0-5) /hpf Ur Squamous Epith Cells (0-4) /hpf Amorphous Sediment (None) /hpf Influenza Type A (PCR) Not Detected (Not Detectd) Influenza Type B (PCR) Not Detected (Not Detectd) RSV (PCR) Not Detected (Not Detectd) SARS-CoV-2 (PCR) Not Detected (Not Detectd) 05/06/24 05/06/24 05/06/24 Range/Units 14:35 15:20 16:18 WBC (3.8-10.6) k/uL RBC (3.80-5.40) m/uL Hgb (11.4-16.0) gm/dL Hct (34.0-46.0) % MCV (80.0-100.0) fL MCH (25.0-35.0) pg MCHC (31.0-37.0) g/dL RDW (11.5-15.5) % Plt Count (150-450) k/uL MPV Neutrophils % % Lymphocytes % % Monocytes % % Eosinophils % % Basophils % % Neutrophils # (1.3-7.7) k/uL Lymphocytes # (1.0-4.8) k/uL Monocytes # (0-1.0) k/uL Eosinophils # (0-0.7) k/uL Basophils # (0-0.2) k/uL Manual Slide Review Hypochromasia Poikilocytosis (manual Anisocytosis Macrocytosis Sodium (137-145) mmol/L Potassium (3.5-5.1) mmol/L Chloride (98-107) mmol/L Carbon Dioxide (22-30) mmol/L Anion Gap mmol/L BUN (7-17) mg/dL Creatinine (0.52-1.04) mg/dL Est GFR (CKD-EPI)AfAm (>60 ml/min/1.73 sqM) Est GFR (CKD-EPI)NonAf (>60 ml/min/1.73 sqM) Glucose (74-99) mg/dL POC Glucose (mg/dL) 114 H (70-110) mg/dL POC Glu Finance Analyst ID Joseph Velásquez Lactic Ac Sepsis Rflx Y Plasma Lactic Acid Amrik (0.7-2.0) mmol/L Calcium (8.4-10.2) mg/dL Phosphorus (2.5-4.5) mg/dL Magnesium (1.6-2.3) mg/dL Total Bilirubin (0.2-1.3) mg/dL AST (14-36) U/L ALT (4-34) U/L Alkaline Phosphatase (38-126) U/L Troponin I (0.000-0.034) ng/mL C-Reactive Protein (<1.0) mg/dL Total Protein (6.3-8.2) g/dL Albumin (3.5-5.0) g/dL Procalcitonin 0.83 H (0.02-0.50) ng/mL Urine Color Urine Appearance (Clear) Urine pH (5.0-8.0) Ur Specific [place] (1.001-1.035) Urine Protein (Negative) Urine Glucose (UA) (Negative) Urine Ketones (Negative) Urine Blood (Negative) Urine Nitrite (Negative) Urine Bilirubin (Negative) Urine Urobilinogen (<2.0) mg/dL Ur Leukocyte Esterase (Negative) Urine RBC (0-5) /hpf Urine WBC (0-5) /hpf Ur Squamous Epith Cells (0-4) /hpf Amorphous Sediment (None) /hpf Influenza Type A (PCR) (Not Detectd) Influenza Type B (PCR) (Not Detectd) RSV (PCR) (Not Detectd) SARS-CoV-2 (PCR) (Not Detectd) 05/06/24 05/06/24 05/06/24 Range/Units 17:19 17:43 18:06 WBC (3.8-10.6) k/uL RBC (3.80-5.40) m/uL Hgb (11.4-16.0) gm/dL Hct (34.0-46.0) % MCV (80.0-100.0) fL MCH (25.0-35.0) pg MCHC (31.0-37.0) g/dL RDW (11.5-15.5) % Plt Count (150-450) k/uL MPV Neutrophils % % Lymphocytes % % Monocytes % % Eosinophils % % Basophils % % Neutrophils # (1.3-7.7) k/uL Lymphocytes # (1.0-4.8) k/uL Monocytes # (0-1.0) k/uL Eosinophils # (0-0.7) k/uL Basophils # (0-0.2) k/uL Manual Slide Review Hypochromasia Poikilocytosis (manual Anisocytosis Macrocytosis Sodium (137-145) mmol/L Potassium (3.5-5.1) mmol/L Chloride (98-107) mmol/L Carbon Dioxide (22-30) mmol/L Anion Gap mmol/L BUN (7-17) mg/dL Creatinine (0.52-1.04) mg/dL Est GFR (CKD-EPI)AfAm (>60 ml/min/1.73 sqM) Est GFR (CKD-EPI)NonAf (>60 ml/min/1.73 sqM) Glucose (74-99) mg/dL POC Glucose (mg/dL) (70-110) mg/dL POC Glu Finance Analyst ID Lactic Ac Sepsis Rflx Plasma Lactic Acid Amrik 8.3 H* (0.7-2.0) mmol/L Calcium (8.4-10.2) mg/dL Phosphorus (2.5-4.5) mg/dL Magnesium (1.6-2.3) mg/dL Total Bilirubin (0.2-1.3) mg/dL AST (14-36) U/L ALT (4-34) U/L Alkaline Phosphatase (38-126) U/L Troponin I 0.018 (0.000-0.034) ng/mL C-Reactive Protein (<1.0) mg/dL Total Protein (6.3-8.2) g/dL Albumin (3.5-5.0) g/dL Procalcitonin (0.02-0.50) ng/mL Urine Color Colorless Urine Appearance Clear (Clear) Urine pH 5.5 (5.0-8.0) Ur Specific [place] 1.013 (1.001-1.035) Urine Protein 2+ H (Negative) Urine Glucose (UA) Negative (Negative) Urine Ketones Negative (Negative) Urine Blood Large H (Negative) Urine Nitrite Negative (Negative) Urine Bilirubin Negative (Negative) Urine Urobilinogen <2.0 (<2.0) mg/dL Ur Leukocyte Esterase Negative (Negative) Urine RBC <1 (0-5) /hpf Urine WBC 1 (0-5) /hpf Ur Squamous Epith Cells 1 (0-4) /hpf Amorphous Sediment Rare H (None) /hpf Influenza Type A (PCR) (Not Detectd) Influenza Type B (PCR) (Not Detectd) RSV (PCR) (Not Detectd) SARS-CoV-2 (PCR) (Not Detectd) Disposition Clinical Impression: Acute renal failure, Lactic acidosis, Hyperkalemia Disposition: ADMITTED IP TO THIS [facility] Procedures - Central Line Placement Left Femoral Consent Obtained: verbal consent Patient Placed on Monitor/Pulse Ox: Yes Prep: mask, gown, gloves Central Line Prep: Chlorhexidine scrub, sterile drapes applied Local Anesthesia Used: Lidocaine 1% Amount of Anesthesia Used (mls): 3 Ultrasound Used for Placement: Yes Central Line Lumen Inserted: triple Central Line Position: good blood return, all ports aspirated, flushed, capped, sutured in place with nylon Dressing Applied: Tegaderm Patient Tolerated Procedure: well Complications: none
[2024-05-06 23:41] LABS: African American GFR (CKD) 14 (>60 ml/min/1.73 sqM); Anion Gap 16 mmol/L; Blood Urea Nitrogen 59 mg/dL (7-17); Calcium 8.7 mg/dL (8.4-10.2); Chloride 110 mmol/L (98-107); Glucose 91 mg/dL (74-99); Non-African American GFR(CKD) 12 (>60 ml/min/1.73 sqM); Potassium 5.8 mmol/L (3.5-5.1); Sodium 134 mmol/L (137-145)
[2024-05-06 23:46] LABS: Carbon Dioxide 8 mmol/L (22-30)
[2024-05-07] MEDS ORDERED: HYDROCORTISONE SUCCINATE 100 MG/2 ML VIAL IV SCH
[2024-05-07 00:04] LABS: Glucose,Whole Blood 108 mg/dL (70-110)
[2024-05-07] MEDS: HYDROCORTISONE SUCCINATE 100 MG/2 ML VIAL IV SCH (00:34)
[2024-05-07 01:12] LABS: Glucose,Whole Blood 125 mg/dL (70-110)
[2024-05-07] MEDS: SODIUM CHLORIDE 0.9% 1,000 ML IV ONE (01:50)
[2024-05-07 03:08] LABS: Glucose,Whole Blood 137 mg/dL (70-110)
[2024-05-07 04:05] LABS: Glucose,Whole Blood 127 mg/dL (70-110)
[2024-05-07 04:44] LABS: African American GFR (CKD) 14 (>60 ml/min/1.73 sqM); Non-African American GFR(CKD) 12 (>60 ml/min/1.73 sqM)
[2024-05-07 05:21] LABS: Glucose,Whole Blood 150 mg/dL (70-110)
[2024-05-07] MEDS ORDERED: VANCOMYCIN 1,500 MG in SODIUM CHLORIDE 0.9% 500 ML 500 ML IVPB ONE ×2 (06:15→20:00)
[2024-05-07 06:30] LABS: Glucose,Whole Blood 192 mg/dL (70-110)
[2024-05-07] MEDS: LEVOTHYROXINE 112 MCG TAB PO SCH (06:30)
[2024-05-07 07:34] LABS: Glucose,Whole Blood 213 mg/dL (70-110)
[2024-05-07] MEDS: CYANOCOBALAMIN 500 MCG TAB PO SCH (08:20)
[2024-05-07] MEDS: FOLIC ACID 1 MG TAB PO SCH (08:20)
[2024-05-07] MEDS: DULoxetine HCL 30 MG CAPSULE.DR PO SCH (08:20)
[2024-05-07] MEDS: PANTOPRAZOLE 40 MG/10 ML VIAL IV SCH (08:25)
[2024-05-07 08:26] LABS: Glucose,Whole Blood 217 mg/dL (70-110)
[2024-05-07 08:37] LABS: African American GFR (CKD) 13 (>60 ml/min/1.73 sqM); Anion Gap 18 mmol/L; Blood Urea Nitrogen 54 mg/dL (7-17); Calcium 8.1 mg/dL (8.4-10.2); Chloride 109 mmol/L (98-107); Glucose 187 mg/dL (74-99); Non-African American GFR(CKD) 12 (>60 ml/min/1.73 sqM); Sodium 133 mmol/L (137-145)
[2024-05-07 08:44] LABS: Anisocytosis Slight; Basophils % (A) 0 %; Eosinophils % (A) 0 %; HCT 24.9 % (34.0-46.0); HGB 7.6 gm/dL (11.4-16.0); Hypochromasia Marked; Lymphocytes # (A) 0.4 k/uL (1.0-4.8); Lymphocytes % (A) 3 %; MCH 34.7 pg (25.0-35.0); MCHC 30.4 g/dL (31.0-37.0); MCV 113.9 fL (80.0-100.0); Macrocytosis Marked; Mean Platelet Volume 10.2; Monocytes # (A) 0.4 k/uL (0-1.0); Monocytes % (A) 3 %; Neutrophils # (A) 12.3 k/uL (1.3-7.7); Neutrophils % (A) 93 %; Platelet Count 368 k/uL (150-450); RBC 2.18 m/uL (3.80-5.40); RDW 17.4 % (11.5-15.5); WBC 13.2 k/uL (3.8-10.6)
[2024-05-07 08:50] LABS: Carbon Dioxide 6 mmol/L (22-30); Creatine Kinase 2020 U/L (30-135)
[2024-05-07 08:51] LABS: Potassium 6.7 mmol/L (3.5-5.1)
[2024-05-07] MEDS ORDERED: APIXABAN 2.5 MG TABLET PO SCH (09:00)
[2024-05-07] MEDS ORDERED: NON FORMULARY DRUG (Amlodipine Besylate/Benazepril [Lotrel 10-20 Mg Capsule] 1 EACH Capsul PO SCH (09:00)
[2024-05-07 09:09] LABS: Anisocytosis (M) Present; Hypochromasia (M) Present; Poikilocytosis (M) Present; Polychromasia Present
[2024-05-07 09:12] LABS: ABG Base Excess -19.3 mmol/L; ABG Oxygen Saturation 96.3 % (94-97); ABG PCO2 24 mmHg (35-45); ABG PO2 97 mmHg (83-108); ABG TCO2 9 mmol/L (19-24); Allen Test Performed? Yes
[2024-05-07 09:13] LABS: ABG HCO3 8 mmol/L (21-25); ABG PH 7.14 (7.35-7.45)
[2024-05-07] MEDS: SODIUM BICARB 8.4% 50 ML SYR (1 MEQ/ML) IV STA ×2 (09:18)
[2024-05-07] MEDS: INSULIN REGULAR 100 UNIT/ML VIAL (IV) IV ONE (09:23)
[2024-05-07] MEDS: DEXTROSE 50% SYRINGE 50 ML IVP ONE (09:24)
[2024-05-07 09:28] LABS: Glucose,Whole Blood 238 mg/dL (70-110)
[2024-05-07] MEDS: CALCIUM GLUCONATE IN NACL 1 GM in SALINE 1 100ML.BAG IVPB ONE (09:30)
[2024-05-07] MEDS: SODIUM ZIRCONIUM CYCLOSILICATE 10 GM PACKET PO ONE (09:59)
[2024-05-07] MEDS: SODIUM ZIRCONIUM CYCLOSILICATE 10 GM PACKET PO SCH (10:12)
[2024-05-07 10:33] LABS: Glucose,Whole Blood 293 mg/dL (70-110)
[2024-05-07] MEDS: PIPERACILLIN-TAZOBACTAM 3.375 GM in SODIUM CHLORIDE 0.9% 100 ML IVPB SCH (10:50)
--- NOTE | 2024-05-07 11:12 | P.NPCON ---
History of Present Illness - Reason for Consult acute renal failure - History of Present Illness Patient is a 69-year-old female with history of hypertension, type 2 diabetes, hypothyroidism who was admitted to the hospital with increased weakness and mental status changes.. Patient was noted to have low blood sugar of 34. EMS was called and blood sugar has improved with IV dextrose. Later on during the day she was noted to have hypoglycemia again and therefore was eventually brought into the hospital. Labs revealed serum potassium of 6.1 and CO2 was 9 with serum creatinine of 4.0 and lactic acid 8.5. Blood pressure was significantly low with systolic noted in the 50s and 70s. Patient has received about 4 L of fluid resuscitation. IV fluids were switched to IV bicarb last night. Currently with indwelling Enriquez catheter with urine output at about 50 mL since the morning. No history of drug abuse Drug screen is pending. Patient is maintained on metformin which can be associated with lactic acidosis. No history of fever or chills nausea vomiting or abdominal pain. Past Medical History Past Medical History: Diabetes Mellitus, Deep Vein Thrombosis (DVT), Hyperlipidemia, Hypertension, Osteoarthritis (OA), Thyroid Disorder Additional Past Medical History / Comment(s): DVT L Leg History of Any Multi-Drug Resistant Organisms: ESBL, MRSA Date of last positivie culture/infection: 11/05/23 - ESBL; 01/27/17 - MRSA MDRO Source:: ESBL - URINE; MRSA - blood Past Surgical History: Hysterectomy, Orthopedic Surgery Additional Past Surgical History / Comment(s): Rectocele;hand,ankle and knee surg.; Past Anesthesia/Blood Transfusion Reactions: No Reported Reaction Past Psychological History: No Psychological Hx Reported Past Alcohol Use History: Rare Past Drug Use History: None Reported - Past Family History Brother(s) Family Medical History: Deep Vein Thrombosis (DVT) Mother Family Medical History: Coronary Artery Disease (CAD) Father Family Medical History: Diabetes Mellitus Medications and Allergies Home Medications Medication Instructions Recorded Confirmed Type Apixaban [Eliquis] 5 mg PO BID 04/24/21 05/06/24 History Folic Acid 1 mg PO DAILY 04/24/21 05/06/24 History HYDROcodone/APAP 10-325MG [[place] 1 tab PO Q6HR PRN 04/24/21 05/06/24 History 10-325] metFORMIN HCL [Glucophage] 1,000 mg PO BID 04/24/21 05/06/24 History Insulin Glargine,Hum.rec.anlog 24 - 30 unit SQ BID 05/12/21 05/06/24 History [Lantus Solostar Pen] Metoprolol Tartrate [Lopressor] 25 mg PO DIRECTED 05/12/21 05/06/24 History DULoxetine HCL [Cymbalta] 30 mg PO DAILY 05/06/24 05/06/24 History Insulin Aspart (Niacinamide) See Protocol SQ DIRECTED 05/06/24 05/06/24 History [Fiasp 100 Unit/ml Flextouch Pen] Levothyroxine Sodium [Synthroid] 112 mcg PO DAILY 05/06/24 05/06/24 History Metabolism Support Vitamin B-12 500 mcg PO DAILY 05/06/24 05/06/24 History 500mcg Rosuvastatin Calcium [Crestor] 40 mg PO HS 05/06/24 05/06/24 History Semaglutide [Ozempic] 1 mg SQ MO 05/06/24 05/06/24 History amLODIPine BESYLATE/BENAZEPRIL 1 cap PO DAILY 05/06/24 05/06/24 History [Lotrel 10-20 mg Capsule] Allergies Allergy/AdvReac Type Severity Reaction Status Date / Time cefazolin Allergy Severe Rash/Hives Verified 05/06/24 18:03 Physical Exam Vitals: Vital Signs Temp Pulse Resp BP Pulse Ox 05/07/24 10:46 99 24 105/45 93 L 05/07/24 10:16 108 H 24 104/46 95 05/07/24 10:01 105 H 24 103/52 94 L 05/07/24 09:33 98.6 F 104 H 18 100/56 95 05/07/24 08:26 103 H 18 105/44 94 L 05/07/24 08:13 99 20 111/46 95 05/07/24 07:58 101 H 20 111/46 95 05/07/24 06:30 98.9 F 101 H 18 109/57 94 L 05/07/24 06:15 96 18 104/46 94 L 05/07/24 06:00 97 16 106/47 94 L 05/07/24 05:45 93 16 120/46 94 L 05/07/24 05:30 93 16 111/49 95 05/07/24 05:15 92 18 115/46 94 L 05/07/24 05:00 95 18 98/46 95 05/07/24 04:45 90 18 124/46 94 L 05/07/24 04:30 88 18 109/48 94 L 05/07/24 04:15 88 16 116/57 94 L 05/07/24 04:00 88 18 116/44 94 L 05/07/24 03:45 89 18 115/49 94 L 05/07/24 03:30 87 18 112/48 94 L 05/07/24 03:15 90 18 113/47 94 L 05/07/24 03:00 90 18 115/47 94 L 05/07/24 02:45 89 18 85/50 95 05/07/24 02:30 86 16 107/45 94 L 05/07/24 02:15 86 16 99/37 94 L 05/07/24 02:00 86 16 110/48 95 05/07/24 01:45 87 16 99/40 95 05/07/24 01:35 85 18 98/49 95 05/07/24 01:30 85 16 105/44 95 05/07/24 01:25 86 16 102/44 95 05/07/24 01:20 90 18 100/47 94 L 05/07/24 01:15 84 18 93/40 95 05/07/24 01:10 90 16 93/40 95 05/07/24 01:05 89 16 89/46 95 05/07/24 01:00 87 16 95/45 94 L 05/07/24 00:55 87 18 98/46 95 05/07/24 00:50 90 18 94/45 94 L 05/07/24 00:45 92 18 99/44 94 L 05/07/24 00:40 89 18 83/53 94 L 05/07/24 00:35 88 18 90/55 95 05/07/24 00:30 90 16 93/40 94 L 05/07/24 00:25 98.0 F 92 16 87/47 95 05/07/24 00:20 87 16 82/38 94 L 05/07/24 00:15 87 16 93/37 94 L 05/07/24 00:10 90 16 94/34 95 05/07/24 00:05 91 16 95/35 95 05/07/24 00:00 89 16 100/44 95 05/06/24 23:55 87 16 99/53 94 L 05/06/24 23:50 86 16 102/42 94 L 05/06/24 23:45 86 13 87/38 94 L 05/06/24 23:40 85 21 99/39 95 05/06/24 23:35 85 8 L 105/45 96 05/06/24 23:30 84 16 105/47 96 05/06/24 23:25 85 16 94/56 95 05/06/24 23:20 85 16 94/38 95 05/06/24 23:15 85 16 94/38 95 05/06/24 23:10 82 16 89/42 95 05/06/24 23:05 87 16 80/47 95 05/06/24 23:00 84 16 85/42 88 L 05/06/24 22:55 85 16 82/44 94 L 05/06/24 22:50 88 16 80/49 94 L 05/06/24 22:35 86 16 90/47 94 L 05/06/24 22:30 87 16 96/43 95 05/06/24 22:15 84 16 59/29 94 L 05/06/24 22:10 84 16 55/31 94 L 05/06/24 22:00 87 16 65/28 95 05/06/24 21:45 89 16 74/38 94 L 05/06/24 21:30 84 16 78/41 95 05/06/24 21:15 84 16 81/42 94 L 05/06/24 21:00 84 16 74/38 95 05/06/24 20:45 82 16 82/49 94 L 05/06/24 20:30 86 16 89/42 95 05/06/24 20:15 83 16 86/40 95 05/06/24 20:00 85 18 80/35 95 05/06/24 19:45 88 16 88/55 94 L 05/06/24 19:15 84 16 81/34 95 05/06/24 18:00 86 17 82/39 95 05/06/24 17:12 84 18 90/42 92 L 05/06/24 14:46 78 18 104/47 96 05/06/24 13:54 97.4 F L 79 19 95/47 96 Intake and Output 05/06/24 05/07/24 05/07/24 22:59 06:59 14:59 Intake Total 6.606 247.394 254 Output Total 40 Balance 6.606 247.394 214 Intake: Intake, IV Titration 6.606 247.394 254 Amount Norepinephrine 4 mg In 6.606 247.394 254 Sodium Chloride 0.9% 250 ml @ 0.03 MCG/KG/MIN 9. 436 mls/hr IV .Q24H [facility] Rx#:[id number] Output: Urine 40 Patient is comfortable awake no acute distress Feeling lethargic Examination of the heart S1 and S2 Examination of the lungs bilateral breath sounds are heard Abdomen is soft nontender Examination of lower extremities shows chronic skin changes, discoloration of the skin. No edema noted BODY TEAM MEMBER exam grossly intact Results - Lab Results Most recent lab results ABG pH 7.14 (7.35-7.45) L* 05/07/24 09:09 ABG pCO2 24 mmHg (35-45) L 05/07/24 09:09 ABG pO2 97 mmHg (83-108) 05/07/24 09:09 ABG HCO3 8 mmol/L (21-25) L* 05/07/24 09:09 ABG O2 Saturation 96.3 % (94-97) 05/07/24 09:09 Calcium 8.1 mg/dL (8.4-10.2) L 05/07/24 07:54 Phosphorus 5.8 mg/dL (2.5-4.5) H 05/06/24 14:35 Magnesium 2.8 mg/dL (1.6-2.3) H 05/06/24 14:35 05/07/24 07:54 05/07/24 07:54 Assessment and Plan Assessment: 1. Acute kidney injury, ATN from severe hypotension, oliguric. UA shows 2+ protein large blood. No obstruction noted on ultrasound of the kidneys. 2. Severe anion gap metabolic acidosis associated with lactic acidosis and acute kidney injury. Rule out other causes. Drug screen has been ordered. Check serum acetone level and check alcohol level. Lactic acidosis could be secondary to metformin 3. Lactic acidosis secondary to hypotension, hypoperfusion and use of metformin. 4. Hyperkalemia associated with acute kidney injury and severe metabolic acidosis 5. Anemia rule out iron deficiency 6. Mental status changes secondary to hypoglycemia and hypotension Plan: Continue with bicarb drip Check serum acetone Follow-up on drug screen Patient will need renal replacement therapy if there is no improvement in acidosis and hyperkalemia. She is agreeable. Thank you for the consultation. We will continue to follow the patient with you during her hospitalization
[2024-05-07 11:31] LABS: Glucose,Whole Blood 228 mg/dL (70-110)
--- NOTE | 2024-05-07 11:38 | P.PN ---
Subjective Progress Note Date: 05/07/24 Hospital Course: A 69-year-old female with past medical history of difficult to control diabetes, history of DVT on Eliquis, HLD, HTN, osteoarthritis, hypothyroidism, history of hypoxic respiratory failure due to pneumonia requiring supplemental oxygen use, history of MSSA sepsis 2017, MRSA bacteremia 2016, recent UTI treated with outpatient antibiotics, who presented to the ER complaining of generalized weakness, low blood sugar, nausea, vomiting. Patient was throwing up for several days, multiple times a day, stopped on 05/05, no associated abdominal pain, bowel habit changes, fevers, chills. Patient states that she went down on her Lantus while throwing up (she is usually on 24 in the AM and 30 p.m., was taking 18 and 28 accordingly)., She is also on metformin 1000 twice daily, Ozempic 1 mg, She did have recent UTI that was treated as outpatient with oral antibiotics, she is not sure what type of antibiotic and for how long she was on it. She noted urinary frequency. ED course: Patient's blood pressure was 102/44 on admission, heart rate in 80s, afebrile initially. EKG showed QTc of 434, junctional rhythm. Chest x-ray with no acute process. CT of the abdomen and pelvis showed chronic elevation of the right hemidiaphragm and no source of infection. Kidney bladder ultrasound showed anechoic bladder, no hydronephrosis, no nephrolithiasis and masses. Lab work significant for leukocytosis 12.6, anemia hemoglobin 8.8, macrocytosis, sodium 136, potassium 5.6, bicarb 9, BUN 68, creatinine 4.09, lactate 8.3, phosphorus 5.8, ALT elevated 124 AST 119, CK 2190, trended down to 2020. Negative troponin, CRP negative, UA positive for proteinuria and hematuria, viral panel negative. Sepsis protocol was initiated, blood in the urine cultures obtained, fluid bolus given, received hyperkalemia cocktail with calcium gluconate, insulin, Lokelma. Patient has been having profound hypotension that did not respond to fluid bolus and was started on Levophed, femoral central line placed in the ER. Patient was started on broad-spectrum antibiotics with Zosyn, vancomycin, starte d on bicarb drip, D10 drip, Solu-Medrol. Patient had mild improvement of hyperkalemia after hyperkalemia cocktail, potassium again elevated 05/07 in the morning at 6.7, another hyperkalemia protocol given with IV insulin, calcium gluconate, bicarb pushes x 2. Nephrology consulted. Despite continuous IV hydration, bicarb drip, patient continued to be profoundly acidotic with carbon dioxide trending down from 9-6, ABG showed pH of 7.14, lactic acid up to 9.7. ICU consulted. Pertinent Imaging: As reported in hospital course Subjective: This complaining of fatigue, urinary frequency, denied shortness of breath, chest pain Pertinent positives and negatives as discussed above, a complete review of systems was performed and all other systems are negative. Vitals Signs Reviewed. General: [Ill-appearing, lethargic, obese Derm: [warm], [dry] Head: [atraumatic], [normocephalic], [symmetric] Eyes: [EOMI], [no lid lag], [anicteric sclera], periorbital swelling Mouth: [no lip lesion], [mucus membranes moist] Cardiovascular: [S1S2 reg], [no murmur] Lungs: [CTA bilateral], [no rhonchi, no rales] , [no accessory muscle use] Abdominal: [soft], diffuse tenderness, [no guarding], [no appreciable organomegaly] Ext: With the reticularis bilateral tight, bilateral lower extremity venous c hronic stasis discoloration, swelling Neuro: [ CN II-XI grossly intact], [no focal neuro deficits] Psych: [Alert], [oriented], [appropriate affect] Data Reviewed Today: As reported in hospital course Assessment and Plan: Severe septic shock, unknown source Severe profound anion gap lactic acidosis in the patient on metformin Acute renal failure likely secondary to profound hypotension, ATN Proteinuria, hematuria Acute hyperkalemia Acute hypoglycemia In the patient with insulin dependent diabetes Acute acute toxic metabolic encephalopathy secondary to above -Continue Levophed drip wean off as tolerated -Continue bicarb drip -Continue vancomycin and Zosyn SOT 05/06 -Follow-up urine and blood cultures -Continue D10 drip, Accu-Cheks -Continue Solu-Medrol 100 every 8 hours -Repeat ABG, serial lactate, serial potassium -Nephrology consulted, patient might need renal replacement therapy -Strict I's and O's -Critical care consulted -Telemetry -Patient is full code -UDS ordered, pending -No history of CAD, no abdominal pain, no suspicion for mesenteric ischemia -Patient will not be resumed on metformin -called patient's , no response Acute on chronic macrocytic anemia -No signs of bleeding -Monitor CBC Hypothyroidism: Continue Synthroid Hyperlipidemia, holding statins GERD: Continue Protonix DVT ppx: Eliquis Code status: Full code Anticipated discharge place: TBD, pending clinical course Anticipated discharge time: TBD, pending clinical course Objective - Vital Signs Vital signs: Vital Signs Temp 98.6 F 05/07/24 09:33 Pulse 101 H 05/07/24 11:21 Resp 24 05/07/24 11:21 BP 117/51 05/07/24 11:21 Pulse Ox 95 05/07/24 11:21 FiO2 Intake & Output 05/06/24 05/07/24 05/07/24 18:59 06:59 18:59 Intake Total 254.000 254 Output Total 40 Balance 254.000 214 Weight 82.554 kg Intake: Intake, IV Titration 254.000 254 Amount Norepinephrine 4 mg In 254.000 254 Sodium Chloride 0.9% 250 ml @ 0.03 MCG/KG/MIN 9. 436 mls/hr IV .Q24H PREM Rx#:[id number] Output: Urine 40 - Labs CBC & Chem 7: 05/07/24 07:54 05/07/24 07:54 Labs: Abnormal Lab Results - Last 24 Hours (Table) 05/06/24 05/06/24 05/06/24 Range/Units 14:35 14:35 14:35 WBC 12.6 H (3.8-10.6) k/uL RBC 2.44 L (3.80-5.40) m/uL Hgb 8.8 L (11.4-16.0) gm/dL Hct 27.0 L (34.0-46.0) % MCV 110.7 H (80.0-100.0) fL MCH 36.0 H (25.0-35.0) pg MCHC (31.0-37.0) g/dL RDW 17.7 H (11.5-15.5) % Neutrophils # 9.7 H (1.3-7.7) k/uL Lymphocytes # (1.0-4.8) k/uL Macrocytosis Marked A ABG pH (7.35-7.45) ABG pCO2 (35-45) mmHg ABG HCO3 (21-25) mmol/L ABG Total CO2 (19-24) mmol/L Hemoglobin (11.4-16.0) gm/dL Sodium 136 L (137-145) mmol/L Potassium 6.1 H* (3.5-5.1) mmol/L Chloride (98-107) mmol/L Carbon Dioxide 9 L* (22-30) mmol/L BUN 68 H (7-17) mg/dL Creatinine 4.09 H (0.52-1.04) mg/dL Glucose (74-99) mg/dL POC Glucose (mg/dL) (70-110) mg/dL Plasma Lactic Acid Amrik 8.5 H* (0.7-2.0) mmol/L Calcium (8.4-10.2) mg/dL Phosphorus 5.8 H (2.5-4.5) mg/dL Magnesium 2.8 H (1.6-2.3) mg/dL AST 119 H (14-36) U/L ALT 124 H (4-34) U/L Creatine Kinase (30-135) U/L Total Protein 5.3 L (6.3-8.2) g/dL Procalcitonin (0.02-0.50) ng/mL Urine Protein (Negative) Urine Blood (Negative) Amorphous Sediment (None) /hpf 05/06/24 05/06/24 05/06/24 Range/Units 14:35 16:18 17:19 WBC (3.8-10.6) k/uL RBC (3.80-5.40) m/uL Hgb (11.4-16.0) gm/dL Hct (34.0-46.0) % MCV (80.0-100.0) fL MCH (25.0-35.0) pg MCHC (31.0-37.0) g/dL RDW (11.5-15.5) % Neutrophils # (1.3-7.7) k/uL Lymphocytes # (1.0-4.8) k/uL Macrocytosis ABG pH (7.35-7.45) ABG pCO2 (35-45) mmHg ABG HCO3 (21-25) mmol/L ABG Total CO2 (19-24) mmol/L Hemoglobin (11.4-16.0) gm/dL Sodium (137-145) mmol/L Potassium (3.5-5.1) mmol/L Chloride (98-107) mmol/L Carbon Dioxide (22-30) mmol/L BUN (7-17) mg/dL Creatinine (0.52-1.04) mg/dL Glucose (74-99) mg/dL POC Glucose (mg/dL) 114 H (70-110) mg/dL Plasma Lactic Acid Amrik (0.7-2.0) mmol/L Calcium (8.4-10.2) mg/dL Phosphorus (2.5-4.5) mg/dL Magnesium (1.6-2.3) mg/dL AST (14-36) U/L ALT (4-34) U/L Creatine Kinase (30-135) U/L Total Protein (6.3-8.2) g/dL Procalcitonin 0.83 H (0.02-0.50) ng/mL Urine Protein 2+ H (Negative) Urine Blood Large H (Negative) Amorphous Sediment Rare H (None) /hpf 05/06/24 05/06/24 05/06/24 Range/Units 17:43 20:35 20:35 WBC (3.8-10.6) k/uL RBC (3.80-5.40) m/uL Hgb (11.4-16.0) gm/dL Hct (34.0-46.0) % MCV (80.0-100.0) fL MCH (25.0-35.0) pg MCHC (31.0-37.0) g/dL RDW (11.5-15.5) % Neutrophils # (1.3-7.7) k/uL Lymphocytes # (1.0-4.8) k/uL Macrocytosis ABG pH (7.35-7.45) ABG pCO2 (35-45) mmHg ABG HCO3 (21-25) mmol/L ABG Total CO2 (19-24) mmol/L Hemoglobin (11.4-16.0) gm/dL Sodium (137-145) mmol/L Potassium 5.6 H (3.5-5.1) mmol/L Chloride (98-107) mmol/L Carbon Dioxide (22-30) mmol/L BUN (7-17) mg/dL Creatinine (0.52-1.04) mg/dL Glucose (74-99) mg/dL POC Glucose (mg/dL) (70-110) mg/dL Plasma Lactic Acid Amrik 8.3 H* (0.7-2.0) mmol/L Calcium (8.4-10.2) mg/dL Phosphorus (2.5-4.5) mg/dL Magnesium (1.6-2.3) mg/dL AST (14-36) U/L ALT (4-34) U/L Creatine Kinase 2190 H* (30-135) U/L Total Protein (6.3-8.2) g/dL Procalcitonin (0.02-0.50) ng/mL Urine Protein (Negative) Urine Blood (Negative) Amorphous Sediment (None) /hpf 05/06/24 05/06/24 05/06/24 Range/Units 21:13 21:28 21:44 WBC (3.8-10.6) k/uL RBC (3.80-5.40) m/uL Hgb (11.4-16.0) gm/dL Hct (34.0-46.0) % MCV (80.0-100.0) fL MCH (25.0-35.0) pg MCHC (31.0-37.0) g/dL RDW (11.5-15.5) % Neutrophils # (1.3-7.7) k/uL Lymphocytes # (1.0-4.8) k/uL Macrocytosis ABG pH (7.35-7.45) ABG pCO2 (35-45) mmHg ABG HCO3 (21-25) mmol/L ABG Total CO2 (19-24) mmol/L Hemoglobin (11.4-16.0) gm/dL Sodium (137-145) mmol/L Potassium (3.5-5.1) mmol/L Chloride (98-107) mmol/L Carbon Dioxide (22-30) mmol/L BUN (7-17) mg/dL Creatinine (0.52-1.04) mg/dL Glucose (74-99) mg/dL POC Glucose (mg/dL) 29 L* 147 H (70-110) mg/dL Plasma Lactic Acid Amrik 7.0 H* (0.7-2.0) mmol/L Calcium (8.4-10.2) mg/dL Phosphorus (2.5-4.5) mg/dL Magnesium (1.6-2.3) mg/dL AST (14-36) U/L ALT (4-34) U/L Creatine Kinase (30-135) U/L Total Protein (6.3-8.2) g/dL Procalcitonin (0.02-0.50) ng/mL Urine Protein (Negative) Urine Blood (Negative) Amorphous Sediment (None) /hpf 05/06/24 05/07/24 05/07/24 Range/Units 23:12 00:02 01:11 WBC (3.8-10.6) k/uL RBC (3.80-5.40) m/uL Hgb (11.4-16.0) gm/dL Hct (34.0-46.0) % MCV (80.0-100.0) fL MCH (25.0-35.0) pg MCHC (31.0-37.0) g/dL RDW (11.5-15.5) % Neutrophils # (1.3-7.7) k/uL Lymphocytes # (1.0-4.8) k/uL Macrocytosis ABG pH (7.35-7.45) ABG pCO2 (35-45) mmHg ABG HCO3 (21-25) mmol/L ABG Total CO2 (19-24) mmol/L Hemoglobin (11.4-16.0) gm/dL Sodium 134 L (137-145) mmol/L Potassium 5.8 H (3.5-5.1) mmol/L Chloride 110 H (98-107) mmol/L Carbon Dioxide 8 L* (22-30) mmol/L BUN 59 H (7-17) mg/dL Creatinine 3.66 H (0.52-1.04) mg/dL Glucose (74-99) mg/dL POC Glucose (mg/dL) 125 H (70-110) mg/dL Plasma Lactic Acid Amrik 7.8 H* (0.7-2.0) mmol/L Calcium (8.4-10.2) mg/dL Phosphorus (2.5-4.5) mg/dL Magnesium (1.6-2.3) mg/dL AST (14-36) U/L ALT (4-34) U/L Creatine Kinase (30-135) U/L Total Protein (6.3-8.2) g/dL Procalcitonin (0.02-0.50) ng/mL Urine Protein (Negative) Urine Blood (Negative) Amorphous Sediment (None) /hpf 05/07/24 05/07/24 05/07/24 Range/Units 03:07 03:41 03:41 WBC (3.8-10.6) k/uL RBC (3.80-5.40) m/uL Hgb (11.4-16.0) gm/dL Hct (34.0-46.0) % MCV (80.0-100.0) fL MCH (25.0-35.0) pg MCHC (31.0-37.0) g/dL RDW (11.5-15.5) % Neutrophils # (1.3-7.7) k/uL Lymphocytes # (1.0-4.8) k/uL Macrocytosis ABG pH (7.35-7.45) ABG pCO2 (35-45) mmHg ABG HCO3 (21-25) mmol/L ABG Total CO2 (19-24) mmol/L Hemoglobin (11.4-16.0) gm/dL Sodium (137-145) mmol/L Potassium (3.5-5.1) mmol/L Chloride (98-107) mmol/L Carbon Dioxide (22-30) mmol/L BUN (7-17) mg/dL Creatinine 3.70 H (0.52-1.04) mg/dL Glucose (74-99) mg/dL POC Glucose (mg/dL) 137 H (70-110) mg/dL Plasma Lactic Acid Amrik 8.3 H* (0.7-2.0) mmol/L Calcium (8.4-10.2) mg/dL Phosphorus (2.5-4.5) mg/dL Magnesium (1.6-2.3) mg/dL AST (14-36) U/L ALT (4-34) U/L Creatine Kinase (30-135) U/L Total Protein (6.3-8.2) g/dL Procalcitonin (0.02-0.50) ng/mL Urine Protein (Negative) Urine Blood (Negative) Amorphous Sediment (None) /hpf 05/07/24 05/07/24 05/07/24 Range/Units 04:03 05:21 06:29 WBC (3.8-10.6) k/uL RBC (3.80-5.40) m/uL Hgb (11.4-16.0) gm/dL Hct (34.0-46.0) % MCV (80.0-100.0) fL MCH (25.0-35.0) pg MCHC (31.0-37.0) g/dL RDW (11.5-15.5) % Neutrophils # (1.3-7.7) k/uL Lymphocytes # (1.0-4.8) k/uL Macrocytosis ABG pH (7.35-7.45) ABG pCO2 (35-45) mmHg ABG HCO3 (21-25) mmol/L ABG Total CO2 (19-24) mmol/L Hemoglobin (11.4-16.0) gm/dL Sodium (137-145) mmol/L Potassium (3.5-5.1) mmol/L Chloride (98-107) mmol/L Carbon Dioxide (22-30) mmol/L BUN (7-17) mg/dL Creatinine (0.52-1.04) mg/dL Glucose (74-99) mg/dL POC Glucose (mg/dL) 127 H 150 H 192 H (70-110) mg/dL Plasma Lactic Acid Amrik (0.7-2.0) mmol/L Calcium (8.4-10.2) mg/dL Phosphorus (2.5-4.5) mg/dL Magnesium (1.6-2.3) mg/dL AST (14-36) U/L ALT (4-34) U/L Creatine Kinase (30-135) U/L Total Protein (6.3-8.2) g/dL Procalcitonin (0.02-0.50) ng/mL Urine Protein (Negative) Urine Blood (Negative) Amorphous Sediment (None) /hpf 05/07/24 05/07/24 05/07/24 Range/Units 07:32 07:54 07:54 WBC 13.2 H (3.8-10.6) k/uL RBC 2.18 L (3.80-5.40) m/uL Hgb 7.6 L (11.4-16.0) gm/dL Hct 24.9 L (34.0-46.0) % MCV 113.9 H (80.0-100.0) fL MCH (25.0-35.0) pg MCHC 30.4 L (31.0-37.0) g/dL RDW 17.4 H (11.5-15.5) % Neutrophils # 12.3 H (1.3-7.7) k/uL Lymphocytes # 0.4 L (1.0-4.8) k/uL Macrocytosis Marked A ABG pH (7.35-7.45) ABG pCO2 (35-45) mmHg ABG HCO3 (21-25) mmol/L ABG Total CO2 (19-24) mmol/L Hemoglobin (11.4-16.0) gm/dL Sodium (137-145) mmol/L Potassium (3.5-5.1) mmol/L Chloride (98-107) mmol/L Carbon Dioxide (22-30) mmol/L BUN (7-17) mg/dL Creatinine (0.52-1.04) mg/dL Glucose (74-99) mg/dL POC Glucose (mg/dL) 213 H (70-110) mg/dL Plasma Lactic Acid Amrik 9.7 H* (0.7-2.0) mmol/L Calcium (8.4-10.2) mg/dL Phosphorus (2.5-4.5) mg/dL Magnesium (1.6-2.3) mg/dL AST (14-36) U/L ALT (4-34) U/L Creatine Kinase (30-135) U/L Total Protein (6.3-8.2) g/dL Procalcitonin (0.02-0.50) ng/mL Urine Protein (Negative) Urine Blood (Negative) Amorphous Sediment (None) /hpf 05/07/24 05/07/24 05/07/24 Range/Units 07:54 08:24 09:09 WBC (3.8-10.6) k/uL RBC (3.80-5.40) m/uL Hgb (11.4-16.0) gm/dL Hct (34.0-46.0) % MCV (80.0-100.0) fL MCH (25.0-35.0) pg MCHC (31.0-37.0) g/dL RDW (11.5-15.5) % Neutrophils # (1.3-7.7) k/uL Lymphocytes # (1.0-4.8) k/uL Macrocytosis ABG pH 7.14 L* (7.35-7.45) ABG pCO2 24 L (35-45) mmHg ABG HCO3 8 L* (21-25) mmol/L ABG Total CO2 9 L (19-24) mmol/L Hemoglobin 7.2 L (11.4-16.0) gm/dL Sodium 133 L (137-145) mmol/L Potassium 6.7 H* (3.5-5.1) mmol/L Chloride 109 H (98-107) mmol/L Carbon Dioxide 6 L* (22-30) mmol/L BUN 54 H (7-17) mg/dL Creatinine 3.81 H (0.52-1.04) mg/dL Glucose 187 H (74-99) mg/dL POC Glucose (mg/dL) 217 H (70-110) mg/dL Plasma Lactic Acid Amrik (0.7-2.0) mmol/L Calcium 8.1 L (8.4-10.2) mg/dL Phosphorus (2.5-4.5) mg/dL Magnesium (1.6-2.3) mg/dL AST (14-36) U/L ALT (4-34) U/L Creatine Kinase 2020 H* (30-135) U/L Total Protein (6.3-8.2) g/dL Procalcitonin (0.02-0.50) ng/mL Urine Protein (Negative) Urine Blood (Negative) Amorphous Sediment (None) /hpf 05/07/24 05/07/24 05/07/24 Range/Units 09:26 10:31 11:29 WBC (3.8-10.6) k/uL RBC (3.80-5.40) m/uL Hgb (11.4-16.0) gm/dL Hct (34.0-46.0) % MCV (80.0-100.0) fL MCH (25.0-35.0) pg MCHC (31.0-37.0) g/dL RDW (11.5-15.5) % Neutrophils # (1.3-7.7) k/uL Lymphocytes # (1.0-4.8) k/uL Macrocytosis ABG pH (7.35-7.45) ABG pCO2 (35-45) mmHg ABG HCO3 (21-25) mmol/L ABG Total CO2 (19-24) mmol/L Hemoglobin (11.4-16.0) gm/dL Sodium (137-145) mmol/L Potassium (3.5-5.1) mmol/L Chloride (98-107) mmol/L Carbon Dioxide (22-30) mmol/L BUN (7-17) mg/dL Creatinine (0.52-1.04) mg/dL Glucose (74-99) mg/dL POC Glucose (mg/dL) 238 H 293 H 228 H (70-110) mg/dL Plasma Lactic Acid Amrik (0.7-2.0) mmol/L Calcium (8.4-10.2) mg/dL Phosphorus (2.5-4.5) mg/dL Magnesium (1.6-2.3) mg/dL AST (14-36) U/L ALT (4-34) U/L Creatine Kinase (30-135) U/L Total Protein (6.3-8.2) g/dL Procalcitonin (0.02-0.50) ng/mL Urine Protein (Negative) Urine Blood (Negative) Amorphous Sediment (None) /hpf
--- NOTE | 2024-05-07 12:12 | P.CNPUL ---
History of Present Illness Consult date: 05/07/24 Chief complaint: Hypotension History of present illness: On 05/07/2024, the patient is being seen in consultation in the emergency department for hypotension and severe lactic acidosis. The patient is known to have diabetes mellitus type 2, hypertension hyperlipidemia and previous history of a DVT for which she has been maintained on anticoagulation. She is also known to have a chronic right hemidiaphragmatic paralysis. The patient came in to the hospital feeling generalized weakness and she also had diminished level of consciousness and she was having episodes of hypoglycemia. Notably, the patient has been receiving a combination of medication for diabetes which included Lantus insulin, Ozempic, metformin and short acting insulin for blood sugars controlled. The patient was started on D5 water and subsequent blood work showed severe metabolic derangements. The patient's serum bicarb was at 8. The patient's lactic acid level was initially at 8.5 and potassium level was at 6.1. She did have an anion gap of 21 at the time of the admission. At the same time, her calcium level was 8, 9 she had a rhabdomyolysis with a CPK of 2190, troponins were negative, procalcitonin level was at 0.8. UA showed +2 proteins, and acetone was negative. The white cell count was at 12.6 with a hemoglobin of 8.8 and a platelet count of 353. The patient received a total of 4.5 L of IV fluids in the emergency department and subsequently she was started on pressors and currently norepinephrine is running at 0.16 mcg/kg/min. Triple-lumen catheter was inserted. Subsequently, the patient was switched to a bicarb infusion at rate of 125 cc an hour. Most recent labs showed ongoing acidosis with a serum bicarb of 6, lactic acid remains at 9.1. There has been some modest improvement in the kidney function as initial creatinine was at 4.09 and the creatinine is down to 3.81. Potassium level this morning was at 6.7. I gave additional bicarb, D50 insulin and calcium to this patient and informed nephrology. She may need potentially dialysis as the patient may have severe lactic acidosis secondary to metformin. She is being monitored very closely. Blood gas was also done that showed a pH of 7.14 with a pCO2 of 24 and pO2 of 97 this was an FiO2 of 26%. Ultrasound of the kidneys shows no evidence of any hydronephrosis. CAT scan abdomen chest abdomen and pelvis shows right hemidiaphragmatic elevation, otherwise no other significant abnormalities. Despite all this abnormalities, the patient seems to be arousable and commun icating. She seems to be appropriate. She is on 1 and half liters of oxygen by nasal cannula with a pulse ox of 95%. Review of Systems Constitutional: Reports fatigue, Reports weakness Eyes: denies as per HPI, denies blurred vision, denies bulging eye, denies decreased vision, denies diplopia, denies discharge, denies dry eye, denies irritation, denies itching, denies pain, denies photophobia, denies loss of peripheral vision, denies loss of vision, denies tunnel vision/blind spots Ears: deny: decreased hearing, ear discharge, earache, tinnitus Ears, nose, mouth and throat: Reports as per HPI Breasts: absent: as per HPI, change in shape, gynecomastia, masses, nipple discharge, pain, skin changes, swelling Cardiovascular: Reports as per HPI Respiratory: Reports as per HPI Gastrointestinal: Reports as per HPI Genitourinary: Reports as per HPI Menstruation: Reports as per HPI Musculoskeletal: Reports as per HPI Musculoskeletal: absent: ankle pain, ankle stiffness, ankle swelling, as per HPI, elbow pain, elbow stiffness, elbow swelling, foot pain, foot stiffness, foot swelling, hand pain, hand stiffness, hand swelling, hip pain, hip stiffness, hip swelling, knee pain, knee stiffness, knee swelling, shoulder pain, shoulder stiffness, shoulder swelling, wrist pain, wrist stiffness, wrist swelling Integumentary: Reports as per HPI Psychiatric: Reports as per HPI Hematologic/Lymphatic: Reports as per HPI Allergic/Immunologic: Reports as per HPI Past Medical History Past Medical History: Diabetes Mellitus, Deep Vein Thrombosis (DVT), Hyperlipidemia, Hypertension, Osteoarthritis (OA), Thyroid Disorder Additional Past Medical History / Comment(s): DVT L Leg History of Any Multi-Drug Resistant Organisms: ESBL, MRSA Date of last positivie culture/infection: 11/05/23 - ESBL; 01/27/17 - MRSA MDRO Source:: ESBL - URINE; MRSA - blood Past Surgical History: Hysterectomy, Orthopedic Surgery Additional Past Surgical History / Comment(s): Rectocele;hand,ankle and knee surg.; Past Anesthesia/Blood Transfusion Reactions: No Reported Reaction Past Psychological History: No Psychological Hx Reported Past Alcohol Use History: Rare Past Drug Use History: None Reported - Past Family History Brother(s) Family Medical History: Deep Vein Thrombosis (DVT) Mother Family Medical History: Coronary Artery Disease (CAD) Father Family Medical History: Diabetes Mellitus Medications and Allergies Home Medications Medication Instructions Recorded Confirmed Type Apixaban [Eliquis] 5 mg PO BID 04/24/21 05/06/24 History Folic Acid 1 mg PO DAILY 04/24/21 05/06/24 History HYDROcodone/APAP 10-325MG [[place] 1 tab PO Q6HR PRN 04/24/21 05/06/24 History 10-325] metFORMIN HCL [Glucophage] 1,000 mg PO BID 04/24/21 05/06/24 History Insulin Glargine,Hum.rec.anlog 24 - 30 unit SQ BID 05/12/21 05/06/24 History [Lantus Solostar Pen] Metoprolol Tartrate [Lopressor] 25 mg PO DIRECTED 05/12/21 05/06/24 History DULoxetine HCL [Cymbalta] 30 mg PO DAILY 05/06/24 05/06/24 History Insulin Aspart (Niacinamide) See Protocol SQ DIRECTED 05/06/24 05/06/24 History [Fiasp 100 Unit/ml Flextouch Pen] Levothyroxine Sodium [Synthroid] 112 mcg PO DAILY 05/06/24 05/06/24 History Metabolism Support Vitamin B-12 500 mcg PO DAILY 05/06/24 05/06/24 History 500mcg Rosuvastatin Calcium [Crestor] 40 mg PO HS 05/06/24 05/06/24 History Semaglutide [Ozempic] 1 mg SQ MO 05/06/24 05/06/24 History amLODIPine BESYLATE/BENAZEPRIL 1 cap PO DAILY 05/06/24 05/06/24 History [Lotrel 10-20 mg Capsule] Allergies Allergy/AdvReac Type Severity Reaction Status Date / Time cefazolin Allergy Severe Rash/Hives Verified 05/06/24 18:03 Physical Exam Vitals: Vital Signs Temp Pulse Resp BP Pulse Ox 05/07/24 08:26 103 H 18 105/44 94 L 05/07/24 08:13 99 20 111/46 95 05/07/24 07:58 101 H 20 111/46 95 05/07/24 06:30 98.9 F 101 H 18 109/57 94 L 05/07/24 06:15 96 18 104/46 94 L 05/07/24 06:00 97 16 106/47 94 L 05/07/24 05:45 93 16 120/46 94 L 05/07/24 05:30 93 16 111/49 95 05/07/24 05:15 92 18 115/46 94 L 05/07/24 05:00 95 18 98/46 95 05/07/24 04:45 90 18 124/46 94 L 05/07/24 04:30 88 18 109/48 94 L 05/07/24 04:15 88 16 116/57 94 L 05/07/24 04:00 88 18 116/44 94 L 05/07/24 03:45 89 18 115/49 94 L 05/07/24 03:30 87 18 112/48 94 L 05/07/24 03:15 90 18 113/47 94 L 05/07/24 03:00 90 18 115/47 94 L 05/07/24 02:45 89 18 85/50 95 05/07/24 02:30 86 16 107/45 94 L 05/07/24 02:15 86 16 99/37 94 L 05/07/24 02:00 86 16 110/48 95 05/07/24 01:45 87 16 99/40 95 05/07/24 01:35 85 18 98/49 95 05/07/24 01:30 85 16 105/44 95 05/07/24 01:25 86 16 102/44 95 05/07/24 01:20 90 18 100/47 94 L 05/07/24 01:15 84 18 93/40 95 05/07/24 01:10 90 16 93/40 95 05/07/24 01:05 89 16 89/46 95 05/07/24 01:00 87 16 95/45 94 L 05/07/24 00:55 87 18 98/46 95 05/07/24 00:50 90 18 94/45 94 L 05/07/24 00:45 92 18 99/44 94 L 05/07/24 00:40 89 18 83/53 94 L 05/07/24 00:35 88 18 90/55 95 05/07/24 00:30 90 16 93/40 94 L 05/07/24 00:25 98.0 F 92 16 87/47 95 05/07/24 00:20 87 16 82/38 94 L 05/07/24 00:15 87 16 93/37 94 L 05/07/24 00:10 90 16 94/34 95 05/07/24 00:05 91 16 95/35 95 05/07/24 00:00 89 16 100/44 95 05/06/24 23:55 87 16 99/53 94 L 05/06/24 23:50 86 16 102/42 94 L 05/06/24 23:45 86 13 87/38 94 L 05/06/24 23:40 85 21 99/39 95 05/06/24 23:35 85 8 L 105/45 96 05/06/24 23:30 84 16 105/47 96 05/06/24 23:25 85 16 94/56 95 05/06/24 23:20 85 16 94/38 95 05/06/24 23:15 85 16 94/38 95 05/06/24 23:10 82 16 89/42 95 05/06/24 23:05 87 16 80/47 95 05/06/24 23:00 84 16 85/42 88 L 05/06/24 22:55 85 16 82/44 94 L 05/06/24 22:50 88 16 80/49 94 L 05/06/24 22:35 86 16 90/47 94 L 05/06/24 22:30 87 16 96/43 95 05/06/24 22:15 84 16 59/29 94 L 05/06/24 22:10 84 16 55/31 94 L 05/06/24 22:00 87 16 65/28 95 05/06/24 21:45 89 16 74/38 94 L 05/06/24 21:30 84 16 78/41 95 05/06/24 21:15 84 16 81/42 94 L 05/06/24 21:00 84 16 74/38 95 05/06/24 20:45 82 16 82/49 94 L 05/06/24 20:30 86 16 89/42 95 05/06/24 20:15 83 16 86/40 95 05/06/24 20:00 85 18 80/35 95 05/06/24 19:45 88 16 88/55 94 L 05/06/24 19:15 84 16 81/34 95 05/06/24 18:00 86 17 82/39 95 05/06/24 17:12 84 18 90/42 92 L 05/06/24 14:46 78 18 104/47 96 05/06/24 13:54 97.4 F L 79 19 95/47 96 Intake and Output 05/06/24 05/07/24 05/07/24 22:59 06:59 14:59 Intake Total 6.606 247.394 Output Total 40 Balance 6.606 247.394 -40 Intake: Intake, IV Titration 6.606 247.394 Amount Norepinephrine 4 mg In 6.606 247.394 Sodium Chloride 0.9% 250 ml @ 0.03 MCG/KG/MIN 9. 436 mls/hr IV .Q24H [facility] Rx#:[id number] Output: Urine 40 The patient appeared to be lethargic and weak. Arousable and communicating Head exam is unremarkable. No scleral icterus or corneal arcus noted. Neck is without jugular venous distension, thyromegaly, or carotid bruits. Carotid upstrokes are brisk bilaterally. Lungs are clear to auscultation and percussion. Cardiac exam reveals the PMI to be normally sized and situated. Rhythm is regular. First and second heart sounds normal. No murmurs, rubs or gallops. Abdominal exam reveals normal bowel sounds, no masses, no organomegaly and no aortic enlargement. Extremities show chronic skin mottling and areas of subcutaneous ecchymotic changes bilaterally and according to her, those abnormalities have been essentially chronic. Examination of the skin revealed no evidence of significant rashes, suspicious appearing nevi or other concerning lesions. Neurologically, the patient is awake and alert and the patient does not have any focal neurological deficit. Cranial nerves are essentially intact. Results - Laboratory Findings CBC and BMP: 05/07/24 07:54 05/07/24 07:54 PT/INR, D-dimer PT 12.2 sec (10.0-12.5) 05/06/24 Unknown INR 1.1 (<1.2) 05/06/24 Unknown Abnormal lab findings: Abnormal Labs 05/06/24 05/06/24 05/06/24 14:35 14:35 14:35 WBC 12.6 H RBC 2.44 L Hgb 8.8 L Hct 27.0 L MCV 110.7 H MCH 36.0 H RDW 17.7 H Neutrophils # 9.7 H Macrocytosis Marked A Sodium 136 L Potassium 6.1 H* Chloride Carbon Dioxide 9 L* BUN 68 H Creatinine 4.09 H POC Glucose (mg/dL) Plasma Lactic Acid Amrik 8.5 H* Phosphorus 5.8 H Magnesium 2.8 H AST 119 H ALT 124 H Creatine Kinase Total Protein 5.3 L Procalcitonin Urine Protein Urine Blood Amorphous Sediment 05/06/24 05/06/24 05/06/24 14:35 16:18 17:19 WBC RBC Hgb Hct MCV MCH RDW Neutrophils # Macrocytosis Sodium Potassium Chloride Carbon Dioxide BUN Creatinine POC Glucose (mg/dL) 114 H Plasma Lactic Acid Amrik Phosphorus Magnesium AST ALT Creatine Kinase Total Protein Procalcitonin 0.83 H Urine Protein 2+ H Urine Blood Large H Amorphous Sediment Rare H 05/06/24 05/06/24 05/06/24 17:43 20:35 20:35 WBC RBC Hgb Hct MCV MCH RDW Neutrophils # Macrocytosis Sodium Potassium 5.6 H Chloride Carbon Dioxide BUN Creatinine POC Glucose (mg/dL) Plasma Lactic Acid Amrik 8.3 H* Phosphorus Magnesium AST ALT Creatine Kinase 2190 H* Total Protein Procalcitonin Urine Protein Urine Blood Amorphous Sediment 05/06/24 05/06/24 05/06/24 21:13 21:28 21:44 WBC RBC Hgb Hct MCV MCH RDW Neutrophils # Macrocytosis Sodium Potassium Chloride Carbon Dioxide BUN Creatinine POC Glucose (mg/dL) 29 L* 147 H Plasma Lactic Acid Amrik 7.0 H* Phosphorus Magnesium AST ALT Creatine Kinase Total Protein Procalcitonin Urine Protein Urine Blood Amorphous Sediment 05/06/24 05/07/24 05/07/24 23:12 00:02 01:11 WBC RBC Hgb Hct MCV MCH RDW Neutrophils # Macrocytosis Sodium 134 L Potassium 5.8 H Chloride 110 H Carbon Dioxide 8 L* BUN 59 H Creatinine 3.66 H POC Glucose (mg/dL) 125 H Plasma Lactic Acid Amrik 7.8 H* Phosphorus Magnesium AST ALT Creatine Kinase Total Protein Procalcitonin Urine Protein Urine Blood Amorphous Sediment 05/07/24 05/07/24 05/07/24 03:07 03:41 03:41 WBC RBC Hgb Hct MCV MCH RDW Neutrophils # Macrocytosis Sodium Potassium Chloride Carbon Dioxide BUN Creatinine 3.70 H POC Glucose (mg/dL) 137 H Plasma Lactic Acid Amrik 8.3 H* Phosphorus Magnesium AST ALT Creatine Kinase Total Protein Procalcitonin Urine Protein Urine Blood Amorphous Sediment 05/07/24 05/07/24 05/07/24 04:03 05:21 06:29 WBC RBC Hgb Hct MCV MCH RDW Neutrophils # Macrocytosis Sodium Potassium Chloride Carbon Dioxide BUN Creatinine POC Glucose (mg/dL) 127 H 150 H 192 H Plasma Lactic Acid Amrik Phosphorus Magnesium AST ALT Creatine Kinase Total Protein Procalcitonin Urine Protein Urine Blood Amorphous Sediment 05/07/24 05/07/24 07:32 08:24 WBC RBC Hgb Hct MCV MCH RDW Neutrophils # Macrocytosis Sodium Potassium Chloride Carbon Dioxide BUN Creatinine POC Glucose (mg/dL) 213 H 217 H Plasma Lactic Acid Amrik Phosphorus Magnesium AST ALT Creatine Kinase Total Protein Procalcitonin Urine Protein Urine Blood Amorphous Sediment - Diagnostic Findings Chest x-ray: image reviewed Assessment and Plan Plan: Acute Hypovolemic shock, refractory to fluids and currently the patient is on pressors. Continues to be hypotensive while being on fluids and the patient is currently on norepinephrine running at 0.16 mcg/kg/min Acute kidney injury, no evidence of any obstructive uropathy. Urine output is gradually improving Acute lactic acidosis, secondary to dehydration, hypoperfusion and metformin Acute hyperkalemia secondary to acute kidney injury and metabolic acidosis Acute rhabdomyolysis Anion gap metabolic acidosis secondary to above Episodic hypoglycemia, currently off metformin and Lantus insulin Diabetes mellitus type 2 Altered mental status, improved secondary to above Chronic right hemidiaphragmatic paralysis Hypertension Hyperlipidemia Previous history of DVT maintained on anticoagulation on outpatient basis COPD maintained on Symbicort on outpatient basis Hypothyroidism Degenerative arthritis Remote history of COVID-19 pneumonia back in 2021 Plan The patient is currently on 1-1/2 L of oxygen by nasal cannula The blood gas was noted as consistent with severe metabolic acidosis Continue bicarb infusion Monitor lactic acid level Urine output is gradually improving Keep pressors for hemodynamic support Hyperkalemia was treated and repeat potassium is pending May need hemodialysis and nephrology has been alerted Modified the Eliquis dose to 2.5 mg twice a day CAT scan of the chest abdomen pelvis was noted and the patient has no other acute abnormalities. Antibiotic coverage is currently empiric and the patient has been given a combination of Zosyn and vancomycin. The patient will need to be transferred to the intensive care unit.
[2024-05-07 12:46] LABS: African American GFR (CKD) 13 (>60 ml/min/1.73 sqM); Anion Gap 22 mmol/L; Blood Urea Nitrogen 55 mg/dL (7-17); Calcium 8.3 mg/dL (8.4-10.2); Chloride 106 mmol/L (98-107); Glucose 203 mg/dL (74-99); Non-African American GFR(CKD) 11 (>60 ml/min/1.73 sqM); Potassium 5.9 mmol/L (3.5-5.1); Sodium 135 mmol/L (137-145)
[2024-05-07 12:49] LABS: Carbon Dioxide 7 mmol/L (22-30)
[2024-05-07 12:51] LABS: Glucose,Whole Blood 218 mg/dL (70-110)
[2024-05-07 13:33] LABS: Glucose,Whole Blood 244 mg/dL (70-110)
[2024-05-07] MEDS: LIDOCAINE 1% INJ 10MG/ML (20 ML MDV) SQ ONE (14:34)
[2024-05-07] MEDS: HEPARIN SODIUM 1,000 UN/ML (10ML VL) IV ONE (14:39)
[2024-05-07 15:47] LABS: Glucose,Whole Blood 177 mg/dL (70-110)
[2024-05-07 15:53] LABS: Creatine Kinase 1547 U/L (30-135)
--- NOTE | 2024-05-07 16:00 | XR ---
EXAMINATION TYPE: XR abdomen 1V DATE OF EXAM: 05/07/2024 3:52 PM COMPARISON: 06/13/2020. CLINICAL INDICATION: Female, 69 years old with history of HEMODIALYSIS CATHETER PLACEMENT; [facility] TECHNIQUE: One radiographic view of the abdomen was obtained. FINDINGS: The bowel gas pattern is nonspecific without dilated loops of small or large bowel. . Fecal material and gas are demonstrated throughout the colon and rectum. There is no evidence for organome gisela or pneumoperitoneum. The osseous structures are intact. No abnormal calcifications are present . Degeneration changes of the hips with osteophyte formation and joint space narrowing. Severe athero sclerosis of the arterial vasculature. Fixation hardware in the lower spine. Left inferior approach c atheter with tip terminating over the sacrum. Right inferior approach catheter with tip terminating i n inferior vena cava. IMPRESSION: 1. Bilateral inferior approach catheters with tips projecting over the left sacrum on the left and t he expected location of the IVC on the right. 2. Nonspecific bowel gas pattern without radiographic evidence for acute process. [facility], , 05/07/2024 3:58 PM
[2024-05-07 17:19] LABS: Glucose,Whole Blood 202 mg/dL (70-110)
[2024-05-07] MEDS: VANCOMYCIN 1,500 MG in SODIUM CHLORIDE 0.9% 500 ML 500 ML IVPB ONE (18:59)
[2024-05-07 19:01] LABS: Urine Alcohol Negative (Negative); Urine Barbiturate Negative (Negative); Urine Cocaine Negative (Negative); Urine Methadone Negative (Negative); Urine Opiates Positive (Negative); Urine Phencyclidine Negative (Negative)
[2024-05-07 19:40] LABS: Glucose,Whole Blood 172 mg/dL (70-110)
[2024-05-07 21:31] LABS: Glucose,Whole Blood 111 mg/dL (70-110)
--- NOTE | 2024-05-07 21:58 | CONS ---
CONSULTATION HISTORY OF PRESENT ILLNESS: This is a 69-year-old female patient, history of hypertension, weakness, hypothyroidism, diabetes with high BUN and creatinine. I was called in for placement of a dialysis catheter. PHYSICAL EXAMINATION: GENERAL: The patient was seen in the emergency room. NECK: Supple. No bruit appreciated. CHEST: Few crackles at the lung bases. First and second sounds present. ABDOMEN: Soft and nontender. EXTREMITIES: Femorals are 1+ bilaterally. The patient has history of DVT in the past. LABORATORY DATA: The patient had a potassium of 6.1 and creatinine is 4.1. PLAN: Placement of a dialysis catheter. Risks and complications discussed. MMODL / IJN: [id number] /
[2024-05-07 22:22] LABS: Glucose,Whole Blood 181 mg/dL (70-110)
[2024-05-07 22:56] LABS: Hepatitis B Surface Antigen Nonreactive (Nonreactive)
[2024-05-07] MEDS: APIXABAN 2.5 MG TABLET PO SCH (22:58)
[2024-05-07 23:42] LABS: Glucose,Whole Blood 122 mg/dL (70-110)
--- NOTE | 2024-05-08 00:07 | OP ---
OPERATIVE REPORT DATE OF SERVICE : PREOPERATIVE DIAGNOSIS: Acute on chronic renal failure with high potassium. POSTOPERATIVE DIAGNOSIS: Acute on chronic renal failure with high potassium. PROCEDURE PERFORMED: Ultrasound-guided 30 cm dialysis catheter placed in right femoral approach. DESCRIPTION OF PROCEDURE: The patient was brought to the emergency room. Right groin was prepped and drapes applied in the usual sterile manner. 1% lidocaine was infiltrated in the groin area. Ultrasound-guided micropuncture introduced into the right femoral vein. Micropuncture guidewire was passed and 4-Vietnamese dilator was advanced on top of the guidewire. After that, we passed a regular guidewire without any resistance. Then, the guidewire was passed and dilator was advanced on the top of the guidewire. Then, we placed 30 cm dialysis catheter, flushed with heparin saline and hep-locked, secured with 3-0 nylon. Dressing applied. The patient tolerated the procedure well. MMODL / IJN: [id number] /
[2024-05-08 01:29] LABS: Glucose,Whole Blood 83 mg/dL (70-110)
[2024-05-08 02:09] LABS: Glucose,Whole Blood 84 mg/dL (70-110)
[2024-05-08] MEDS ORDERED: DEXTROSE 50% SYRINGE 50 ML IVP PRN (02:25)
[2024-05-08 02:36] LABS: Glucose,Whole Blood 260 mg/dL (70-110)
[2024-05-08 06:16] LABS: Glucose,Whole Blood 104 mg/dL (70-110)
[2024-05-08 07:17] LABS: Anisocytosis Slight; Basophils % (A) 0 %; Eosinophils % (A) 0 %; HCT 20.2 % (34.0-46.0); Lymphocytes # (A) 0.7 k/uL (1.0-4.8); Lymphocytes % (A) 6 %; MCH 35.6 pg (25.0-35.0); MCHC 33.5 g/dL (31.0-37.0); Macrocytosis Marked; Monocytes # (A) 0.6 k/uL (0-1.0); Monocytes % (A) 6 %; Neutrophils # (A) 9.9 k/uL (1.3-7.7); Neutrophils % (A) 87 %; Platelet Count 227 k/uL (150-450); RDW 17.3 % (11.5-15.5); WBC 11.4 k/uL (3.8-10.6)
[2024-05-08 07:21] LABS: HGB 6.8 gm/dL (11.4-16.0)
[2024-05-08 07:22] LABS: MCV 106.3 fL (80.0-100.0)
[2024-05-08 07:34] LABS: African American GFR (CKD) 20 (>60 ml/min/1.73 sqM); Anion Gap 15 mmol/L; Blood Urea Nitrogen 40 mg/dL (7-17); Calcium 7.2 mg/dL (8.4-10.2); Carbon Dioxide 18 mmol/L (22-30); Chloride 100 mmol/L (98-107); Glucose 92 mg/dL (74-99); Non-African American GFR(CKD) 17 (>60 ml/min/1.73 sqM); Sodium 133 mmol/L (137-145)
[2024-05-08 07:39] LABS: Vancomycin,Random 19.1 ug/mL
[2024-05-08 07:43] LABS: Creatine Kinase 1367 U/L (30-135)
--- NOTE | 2024-05-08 11:00 | P.PN ---
Subjective Progress Note Date: 05/08/24 Hospital Course: A 69-year-old female with past medical history of difficult to control diabetes, history of DVT on Eliquis, HLD, HTN, osteoarthritis, hypothyroidism, history of hypoxic respiratory failure due to pneumonia requiring supplemental oxygen use, history of MSSA sepsis 2017, MRSA bacteremia 2016, recent UTI treated with outpatient antibiotics, who presented to the ER complaining of generalized weakness, low blood sugar, nausea, vomiting. Patient was throwing up for several days, multiple times a day, stopped on 05/05, no associated abdominal pain, bowel habit changes, fevers, chills. Patient states that she went down on her Lantus while throwing up (she is usually on 24 in the AM and 30 p.m., was taking 18 and 28 accordingly)., She is also on metformin 1000 twice daily, Ozempic 1 mg, She did have recent UTI that was treated as outpatient with oral antibiotics, she is not sure what type of antibiotic and for how long she was on it. She noted urinary frequency. ED course: Patient's blood pressure was 102/44 on admission, heart rate in 80s, afebrile initially. EKG showed QTc of 434, junctional rhythm. Chest x-ray with no acute process. CT of the abdomen and pelvis showed chronic elevation of the right hemidiaphragm and no source of infection. Kidney bladder ultrasound showed anechoic bladder, no hydronephrosis, no nephrolithiasis and masses. Lab work significant for leukocytosis 12.6, anemia hemoglobin 8.8, macrocytosis, sodium 136, potassium 5.6, bicarb 9, BUN 68, creatinine 4.09, lactate 8.3, phosphorus 5.8, ALT elevated 124 AST 119, CK 2190, trended down to 2020. Negative troponin, CRP negative, UA positive for proteinuria and hematuria, viral panel negative. Sepsis protocol was initiated, blood in the urine cultures obtained, fluid bolus given, received hyperkalemia cocktail with calcium gluconate, insulin, Lokelma. Patient has been having profound hypotension that did not respond to fluid bolus and was started on Levophed, femoral central line placed in the ER. Patient was started on broad-spectrum antibiotics with Zosyn, vancomycin, starte d on bicarb drip, D10 drip, Solu-Medrol. Patient had mild improvement of hyperkalemia after hyperkalemia cocktail, potassium again elevated 05/07 in the morning at 6.7, another hyperkalemia protocol given with IV insulin, calcium gluconate, bicarb pushes x 2. Despite continuous IV hydration, bicarb drip, patient continued to be profoundly acidotic with carbon dioxide trending down from 9-6, ABG showed pH of 7.14, lactic acid up to 9.7. Nephrology consulted. IR consulted for tunneled catheter placement, plan for HD 05/08 ICU consulted. Awaiting for an ICU bed 05/08 hemoglobin noted at 6.8, 1 unit of PRBC ordered, Eliquis was previously decreased to 2.5 twice daily, now on hold.. Acidosis improved, carbon dioxide 18, anion gap 15, creatinine trending down to 2.75 now, potassium normal, CK t rending down, lactic acid peaked at 12.8 overnight, now 7.6. Pertinent Imaging: Abdominal x-ray after catheter placement, expected location of the IVC, no acute process in the abdomen. Subjective: She was seen and examined in the ER, she feels fatigued but better today, more awake, denies abdominal pain, chest pain Pertinent positives and negatives as discussed above, a complete review of systems was performed and all other systems are negative. Vitals Signs Reviewed. General: [Ill-appearing, less lethargic, obese Derm: [warm], [dry] Head: [atraumatic], [normocephalic], [symmetric] Eyes: [EOMI], [no lid lag], [anicteric sclera], periorbital swelling Mouth: [no lip lesion], [mucus membranes moist] Cardiovascular: [S1S2 reg], [no murmur] Lungs: [CTA bilateral], [no rhonchi, no rales] , [no accessory muscle use] Abdominal: [soft], diffuse tenderness, [no guarding], [no appreciable organomegaly] Ext: livedo reticularis bilateral tight resolved, bilateral lower extremity venous chronic stasis discoloration, swelling: Tunneled catheter, CVC present in bilateral femoral veins Neuro: [ CN II-XI grossly intact], [no focal neuro deficits] Psych: [Alert], [oriented], [appropriate affect] Data Reviewed Today: Pertinent Labs: As mentioned in hospital course Assessment and Plan: Severe septic shock, unknown source Severe profound anion gap lactic acidosis in the patient on metformin Acute renal failure likely secondary to profound hypotension, ATN Proteinuria, hematuria Acute hyperkalemia Acute hypoglycemia In the patient with insulin dependent diabetes Acute acute toxic metabolic encephalopathy secondary to above -Continue Levophed drip wean off as tolerated, will target MAP of 70 to maintain kidney perfusion -Continue vancomycin and Zosyn SOT 05/06 -Follow-up urine and blood cultures -D5 sodium bicarb at 100 cc/h -Continue Solu-Medrol 100 every 8 hours -Repeat ABG, serial lactate, serial potassium -Nephrology consulted, plan for HD -Strict I's and O's -Critical care consulted -Telemetry -No history of CAD, no abdominal pain, no suspicion for mesenteric ischemia -Patient will not be resumed on metformin Acute on chronic macrocytic anemia -No signs of bleeding -Monitor CBC, hemoglobin less than 7 05/08, 1 unit of PRBC ordered -Eliquis was decreased to 2.5 twice daily, now holding Hypothyroidism: Continue Synthroid Hyperlipidemia, holding statins GERD: Continue Protonix DVT ppx: Eliquis, hold Code status: Full code Anticipated discharge place: TBD, pending clinical course Anticipated discharge time: TBD, pending clinical course Objective - Vital Signs Vital signs: Vital Signs Temp 98.9 F 05/08/24 09:32 Pulse 101 H 05/08/24 10:26 Resp 16 05/08/24 10:26 BP 124/60 05/08/24 10:26 Pulse Ox 95 05/08/24 10:26 FiO2 Intake & Output 05/07/24 05/08/24 05/08/24 18:59 06:59 18:59 Intake Total 666.681 4365.644 262.178 Output Total 70 625 50 Balance 467.356 403.644 212.178 Intake: Intake, IV Titration 537.356 478.644 262.178 Amount Norepinephrine 4 mg In 537.356 478.644 262.178 Sodium Chloride 0.9% 250 ml @ 0.03 MCG/KG/MIN 9. 436 mls/hr IV .Q24H [facility] Rx#:[id number] Oral 50 Hemodialysis 500 Output: Urine 70 125 50 Uretheral (Enriquez) 125 Hemodialysis 500 Hemodialysis Net Amount 0 - Labs CBC & Chem 7: 05/08/24 06:37 05/08/24 06:37 Labs: Abnormal Lab Results - Last 24 Hours (Table) 05/06/24 05/07/24 05/07/24 Range/Units 17:19 11:29 11:42 WBC (3.8-10.6) k/uL RBC (3.80-5.40) m/uL Hgb (11.4-16.0) gm/dL Hct (34.0-46.0) % MCV (80.0-100.0) fL MCH (25.0-35.0) pg RDW (11.5-15.5) % Neutrophils # (1.3-7.7) k/uL Lymphocytes # (1.0-4.8) k/uL Macrocytosis Sodium (137-145) mmol/L Potassium (3.5-5.1) mmol/L Carbon Dioxide (22-30) mmol/L BUN (7-17) mg/dL Creatinine (0.52-1.04) mg/dL Glucose (74-99) mg/dL POC Glucose (mg/dL) 228 H (70-110) mg/dL Plasma Lactic Acid Amrik 11.5 H* (0.7-2.0) mmol/L Calcium (8.4-10.2) mg/dL Creatine Kinase (30-135) U/L Urine Opiates Screen Positive A (Negative) Crossmatch 05/07/24 05/07/24 05/07/24 Range/Units 11:42 11:42 12:50 WBC (3.8-10.6) k/uL RBC (3.80-5.40) m/uL Hgb (11.4-16.0) gm/dL Hct (34.0-46.0) % MCV (80.0-100.0) fL MCH (25.0-35.0) pg RDW (11.5-15.5) % Neutrophils # (1.3-7.7) k/uL Lymphocytes # (1.0-4.8) k/uL Macrocytosis Sodium 135 L (137-145) mmol/L Potassium 5.9 H (3.5-5.1) mmol/L Carbon Dioxide 7 L* (22-30) mmol/L BUN 55 H (7-17) mg/dL Creatinine 3.89 H (0.52-1.04) mg/dL Glucose 203 H (74-99) mg/dL POC Glucose (mg/dL) 218 H (70-110) mg/dL Plasma Lactic Acid Amrik (0.7-2.0) mmol/L Calcium 8.3 L (8.4-10.2) mg/dL Creatine Kinase 1547 H* (30-135) U/L Urine Opiates Screen (Negative) Crossmatch 05/07/24 05/07/24 05/07/24 Range/Units 13:31 14:53 15:45 WBC (3.8-10.6) k/uL RBC (3.80-5.40) m/uL Hgb (11.4-16.0) gm/dL Hct (34.0-46.0) % MCV (80.0-100.0) fL MCH (25.0-35.0) pg RDW (11.5-15.5) % Neutrophils # (1.3-7.7) k/uL Lymphocytes # (1.0-4.8) k/uL Macrocytosis Sodium (137-145) mmol/L Potassium (3.5-5.1) mmol/L Carbon Dioxide (22-30) mmol/L BUN (7-17) mg/dL Creatinine (0.52-1.04) mg/dL Glucose (74-99) mg/dL POC Glucose (mg/dL) 244 H 177 H (70-110) mg/dL Plasma Lactic Acid Amrik 12.8 H* (0.7-2.0) mmol/L Calcium (8.4-10.2) mg/dL Creatine Kinase (30-135) U/L Urine Opiates Screen (Negative) Crossmatch 05/07/24 05/07/24 05/07/24 Range/Units 17:18 17:46 19:39 WBC (3.8-10.6) k/uL RBC (3.80-5.40) m/uL Hgb (11.4-16.0) gm/dL Hct (34.0-46.0) % MCV (80.0-100.0) fL MCH (25.0-35.0) pg RDW (11.5-15.5) % Neutrophils # (1.3-7.7) k/uL Lymphocytes # (1.0-4.8) k/uL Macrocytosis Sodium (137-145) mmol/L Potassium (3.5-5.1) mmol/L Carbon Dioxide (22-30) mmol/L BUN (7-17) mg/dL Creatinine (0.52-1.04) mg/dL Glucose (74-99) mg/dL POC Glucose (mg/dL) 202 H 172 H (70-110) mg/dL Plasma Lactic Acid Amrik 12.8 H* (0.7-2.0) mmol/L Calcium (8.4-10.2) mg/dL Creatine Kinase (30-135) U/L Urine Opiates Screen (Negative) Crossmatch 05/07/24 05/07/24 05/07/24 Range/Units 21:30 22:20 23:41 WBC (3.8-10.6) k/uL RBC (3.80-5.40) m/uL Hgb (11.4-16.0) gm/dL Hct (34.0-46.0) % MCV (80.0-100.0) fL MCH (25.0-35.0) pg RDW (11.5-15.5) % Neutrophils # (1.3-7.7) k/uL Lymphocytes # (1.0-4.8) k/uL Macrocytosis Sodium (137-145) mmol/L Potassium (3.5-5.1) mmol/L Carbon Dioxide (22-30) mmol/L BUN (7-17) mg/dL Creatinine (0.52-1.04) mg/dL Glucose (74-99) mg/dL POC Glucose (mg/dL) 111 H 181 H 122 H (70-110) mg/dL Plasma Lactic Acid Amrik (0.7-2.0) mmol/L Calcium (8.4-10.2) mg/dL Creatine Kinase (30-135) U/L Urine Opiates Screen (Negative) Crossmatch 05/08/24 05/08/24 05/08/24 Range/Units 01:47 02:35 06:37 WBC (3.8-10.6) k/uL RBC (3.80-5.40) m/uL Hgb (11.4-16.0) gm/dL Hct (34.0-46.0) % MCV (80.0-100.0) fL MCH (25.0-35.0) pg RDW (11.5-15.5) % Neutrophils # (1.3-7.7) k/uL Lymphocytes # (1.0-4.8) k/uL Macrocytosis Sodium 133 L (137-145) mmol/L Potassium (3.5-5.1) mmol/L Carbon Dioxide 18 L (22-30) mmol/L BUN 40 H (7-17) mg/dL Creatinine 2.75 H (0.52-1.04) mg/dL Glucose (74-99) mg/dL POC Glucose (mg/dL) 260 H (70-110) mg/dL Plasma Lactic Acid Amrik 9.5 H* (0.7-2.0) mmol/L Calcium 7.2 L (8.4-10.2) mg/dL Creatine Kinase 1367 H* (30-135) U/L Urine Opiates Screen (Negative) Crossmatch 05/08/24 05/08/24 05/08/24 Range/Units 06:37 06:37 09:23 WBC 11.4 H (3.8-10.6) k/uL RBC 1.90 L (3.80-5.40) m/uL Hgb 6.8 L* (11.4-16.0) gm/dL Hct 20.2 L (34.0-46.0) % MCV 106.3 H D (80.0-100.0) fL MCH 35.6 H (25.0-35.0) pg RDW 17.3 H (11.5-15.5) % Neutrophils # 9.9 H (1.3-7.7) k/uL Lymphocytes # 0.7 L (1.0-4.8) k/uL Macrocytosis Marked A Sodium (137-145) mmol/L Potassium (3.5-5.1) mmol/L Carbon Dioxide (22-30) mmol/L BUN (7-17) mg/dL Creatinine (0.52-1.04) mg/dL Glucose (74-99) mg/dL POC Glucose (mg/dL) (70-110) mg/dL Plasma Lactic Acid Amrik 7.6 H* (0.7-2.0) mmol/L Calcium (8.4-10.2) mg/dL Creatine Kinase (30-135) U/L Urine Opiates Screen (Negative) Crossmatch See Detail Microbiology - Last 24 Hours (Table) 05/06/24 14:35 Urine Culture - Final Urine,Clean Catch 05/06/24 15:23 Blood Culture - Preliminary Blood
--- NOTE | 2024-05-08 11:49 | P.PN ---
Subjective Patient is seen for follow-up for acute kidney injury and severe metabolic acidosis from lactic acidosis from metformin. Patient was dialyzed yesterday due to intractable acidosis and hyperkalemia associated with oliguric acute kidney injury. Metabolic acidosis is much improved. Patient is scheduled for dialysis again today. She is much more awake and able to communicate. Overall feels better. Urine output remains significantly low. Objective - Vital Signs Vital signs: Vital Signs Temp 99.2 F 05/08/24 11:22 Pulse 103 H 05/08/24 11:22 Resp 16 05/08/24 11:22 BP 125/56 05/08/24 11:22 Pulse Ox 96 05/08/24 11:22 FiO2 Intake & Output 05/07/24 05/08/24 05/08/24 18:59 06:59 18:59 Intake Total 097.623 2289.644 262.178 Output Total 70 625 50 Balance 467.356 403.644 212.178 Intake: Intake, IV Titration 537.356 478.644 262.178 Amount Norepinephrine 4 mg In 537.356 478.644 262.178 Sodium Chloride 0.9% 250 ml @ 0.03 MCG/KG/MIN 9. 436 mls/hr IV .Q24H [facility] Rx#:[id number] Oral 50 Blood Product 0 Rc As-1 Unit 0 [id number] Hemodialysis 500 Output: Urine 70 125 50 Uretheral (Enriquez) 125 Hemodialysis 500 Hemodialysis Net Amount 0 - Exam Patient is comfortable awake no acute distress Communicating fairly normally Examination of the heart S1 and S2 Examination of the lungs bilateral breath sounds are heard Abdomen is soft nontender Examination of lower extremities shows chronic skin changes, discoloration of the skin. Edema noted in the upper extremities today [employer] exam grossly intact - Labs CBC & Chem 7: 05/08/24 06:37 05/08/24 06:37 Labs: Abnormal Lab Results - Last 24 Hours (Table) 05/06/24 05/07/24 05/07/24 Range/Units 17:19 11:42 11:42 WBC (3.8-10.6) k/uL RBC (3.80-5.40) m/uL Hgb (11.4-16.0) gm/dL Hct (34.0-46.0) % MCV (80.0-100.0) fL MCH (25.0-35.0) pg RDW (11.5-15.5) % Neutrophils # (1.3-7.7) k/uL Lymphocytes # (1.0-4.8) k/uL Macrocytosis Sodium 135 L (137-145) mmol/L Potassium 5.9 H (3.5-5.1) mmol/L Carbon Dioxide 7 L* (22-30) mmol/L BUN 55 H (7-17) mg/dL Creatinine 3.89 H (0.52-1.04) mg/dL Glucose 203 H (74-99) mg/dL POC Glucose (mg/dL) (70-110) mg/dL Plasma Lactic Acid Amrik 11.5 H* (0.7-2.0) mmol/L Calcium 8.3 L (8.4-10.2) mg/dL Creatine Kinase (30-135) U/L Urine Opiates Screen Positive A (Negative) Crossmatch 05/07/24 05/07/24 05/07/24 Range/Units 11:42 12:50 13:31 WBC (3.8-10.6) k/uL RBC (3.80-5.40) m/uL Hgb (11.4-16.0) gm/dL Hct (34.0-46.0) % MCV (80.0-100.0) fL MCH (25.0-35.0) pg RDW (11.5-15.5) % Neutrophils # (1.3-7.7) k/uL Lymphocytes # (1.0-4.8) k/uL Macrocytosis Sodium (137-145) mmol/L Potassium (3.5-5.1) mmol/L Carbon Dioxide (22-30) mmol/L BUN (7-17) mg/dL Creatinine (0.52-1.04) mg/dL Glucose (74-99) mg/dL POC Glucose (mg/dL) 218 H 244 H (70-110) mg/dL Plasma Lactic Acid Amrik (0.7-2.0) mmol/L Calcium (8.4-10.2) mg/dL Creatine Kinase 1547 H* (30-135) U/L Urine Opiates Screen (Negative) Crossmatch 05/07/24 05/07/24 05/07/24 Range/Units 14:53 15:45 17:18 WBC (3.8-10.6) k/uL RBC (3.80-5.40) m/uL Hgb (11.4-16.0) gm/dL Hct (34.0-46.0) % MCV (80.0-100.0) fL MCH (25.0-35.0) pg RDW (11.5-15.5) % Neutrophils # (1.3-7.7) k/uL Lymphocytes # (1.0-4.8) k/uL Macrocytosis Sodium (137-145) mmol/L Potassium (3.5-5.1) mmol/L Carbon Dioxide (22-30) mmol/L BUN (7-17) mg/dL Creatinine (0.52-1.04) mg/dL Glucose (74-99) mg/dL POC Glucose (mg/dL) 177 H 202 H (70-110) mg/dL Plasma Lactic Acid Amrik 12.8 H* (0.7-2.0) mmol/L Calcium (8.4-10.2) mg/dL Creatine Kinase (30-135) U/L Urine Opiates Screen (Negative) Crossmatch 05/07/24 05/07/24 05/07/24 Range/Units 17:46 19:39 21:30 WBC (3.8-10.6) k/uL RBC (3.80-5.40) m/uL Hgb (11.4-16.0) gm/dL Hct (34.0-46.0) % MCV (80.0-100.0) fL MCH (25.0-35.0) pg RDW (11.5-15.5) % Neutrophils # (1.3-7.7) k/uL Lymphocytes # (1.0-4.8) k/uL Macrocytosis Sodium (137-145) mmol/L Potassium (3.5-5.1) mmol/L Carbon Dioxide (22-30) mmol/L BUN (7-17) mg/dL Creatinine (0.52-1.04) mg/dL Glucose (74-99) mg/dL POC Glucose (mg/dL) 172 H 111 H (70-110) mg/dL Plasma Lactic Acid Amrik 12.8 H* (0.7-2.0) mmol/L Calcium (8.4-10.2) mg/dL Creatine Kinase (30-135) U/L Urine Opiates Screen (Negative) Crossmatch 05/07/24 05/07/24 05/08/24 Range/Units 22:20 23:41 01:47 WBC (3.8-10.6) k/uL RBC (3.80-5.40) m/uL Hgb (11.4-16.0) gm/dL Hct (34.0-46.0) % MCV (80.0-100.0) fL MCH (25.0-35.0) pg RDW (11.5-15.5) % Neutrophils # (1.3-7.7) k/uL Lymphocytes # (1.0-4.8) k/uL Macrocytosis Sodium (137-145) mmol/L Potassium (3.5-5.1) mmol/L Carbon Dioxide (22-30) mmol/L BUN (7-17) mg/dL Creatinine (0.52-1.04) mg/dL Glucose (74-99) mg/dL POC Glucose (mg/dL) 181 H 122 H (70-110) mg/dL Plasma Lactic Acid Amrik 9.5 H* (0.7-2.0) mmol/L Calcium (8.4-10.2) mg/dL Creatine Kinase (30-135) U/L Urine Opiates Screen (Negative) Crossmatch 05/08/24 05/08/24 05/08/24 Range/Units 02:35 06:37 06:37 WBC 11.4 H (3.8-10.6) k/uL RBC 1.90 L (3.80-5.40) m/uL Hgb 6.8 L* (11.4-16.0) gm/dL Hct 20.2 L (34.0-46.0) % MCV 106.3 H D (80.0-100.0) fL MCH 35.6 H (25.0-35.0) pg RDW 17.3 H (11.5-15.5) % Neutrophils # 9.9 H (1.3-7.7) k/uL Lymphocytes # 0.7 L (1.0-4.8) k/uL Macrocytosis Marked A Sodium 133 L (137-145) mmol/L Potassium (3.5-5.1) mmol/L Carbon Dioxide 18 L (22-30) mmol/L BUN 40 H (7-17) mg/dL Creatinine 2.75 H (0.52-1.04) mg/dL Glucose (74-99) mg/dL POC Glucose (mg/dL) 260 H (70-110) mg/dL Plasma Lactic Acid Amrik (0.7-2.0) mmol/L Calcium 7.2 L (8.4-10.2) mg/dL Creatine Kinase 1367 H* (30-135) U/L Urine Opiates Screen (Negative) Crossmatch 05/08/24 05/08/24 Range/Units 06:37 09:23 WBC (3.8-10.6) k/uL RBC (3.80-5.40) m/uL Hgb (11.4-16.0) gm/dL Hct (34.0-46.0) % MCV (80.0-100.0) fL MCH (25.0-35.0) pg RDW (11.5-15.5) % Neutrophils # (1.3-7.7) k/uL Lymphocytes # (1.0-4.8) k/uL Macrocytosis Sodium (137-145) mmol/L Potassium (3.5-5.1) mmol/L Carbon Dioxide (22-30) mmol/L BUN (7-17) mg/dL Creatinine (0.52-1.04) mg/dL Glucose (74-99) mg/dL POC Glucose (mg/dL) (70-110) mg/dL Plasma Lactic Acid Amrik 7.6 H* (0.7-2.0) mmol/L Calcium (8.4-10.2) mg/dL Creatine Kinase (30-135) U/L Urine Opiates Screen (Negative) Crossmatch See Detail Microbiology - Last 24 Hours (Table) 05/06/24 14:35 Urine Culture - Final Urine,Clean Catch 05/06/24 15:23 Blood Culture - Preliminary Blood Assessment and Plan Assessment: 1. Acute kidney injury, ATN from severe hypotension, oliguric. UA shows 2+ protein large blood. No obstruction noted on ultrasound of the kidneys. Unlikely to be secondary to underlying vasculitis but we will send out baseline serologies. Patient has had proteinuria for a few years now. 2. Severe anion gap metabolic acidosis associated with lactic acidosis and acute kidney injury. Rule out other causes. Drug screen has been ordered. Check serum acetone level and check alcohol level. Lactic acidosis could be secondary to metformin 3. Lactic acidosis secondary to hypotension, hypoperfusion and use of metformin. 4. Hyperkalemia associated with acute kidney injury and severe metabolic acidosis 5. Anemia rule out iron deficiency 6. Mental status changes secondary to hypoglycemia and hypotension 7. Chronic kidney disease stage I secondary to diabetic kidney disease with significant proteinuria noted since 2017. GFR is fairly well-preserved with previous creatinine at 0.8 on 10/22/2023. Plan: Continue with bicarb drip. Will likely discontinue bicarb drip after dialysis today. IV Lasix x 1 Reevaluate for need for dialysis tomorrow Check baseline serologies for vasculitis although clinically it is appears to be severe ATN from hypotension.
[2024-05-08 11:55] LABS: Glucose,Whole Blood 149 mg/dL (70-110)
--- NOTE | 2024-05-08 12:12 | P.PN ---
Subjective Progress Note Date: 05/08/24 On 05/07/2024, the patient is being seen in consultation in the emergency department for hypotension and severe lactic acidosis. The patient is known to have diabetes mellitus type 2, hypertension hyperlipidemia and previous history of a DVT for which she has been maintained on anticoagulation. She is also known to have a chronic right hemidiaphragmatic paralysis. The patient came into the hospital feeling generalized weakness and she also had diminished level of consciousness and she was having episodes of hypoglycemia. Notably, the patient has been receiving a combination of medication for diabetes which included Lantus insulin, Ozempic, metformin and short acting insulin for blood sugars controlled. The patient was started on D5 water and subsequent blood work showed severe metabolic derangements. The patient's serum bicarb was at 8. The patient's lactic acid level was initially at 8.5 and potassium level was at 6.1. She did have an anion gap of 21 at the time of the admission. At the same time, her calcium level was 8, 9 she had a rhabdomyolysis with a CPK of 2190, troponins were negative, procalcitonin level was at 0.8. UA showed +2 proteins, and acetone was negative. The white cell count was at 12.6 with a hemoglobin of 8.8 and a platelet count of 353. The patient received a total of 4.5 L of IV fluids in the emergency department and subsequently she was started on pressors and currently norepinephrine is running at 0.16 mcg/kg/min. Triple-lumen catheter was inserted. Subsequently, the patient was switched to a bicarb infusion at rate of 125 cc an hour. Most recent labs showed ongoing acidosis with a serum bicarb of 6, lactic acid remains at 9.1. There has been some modest improvement in the kidney function as initial creatinine was at 4.09 and the creatinine is down to 3.81. Potassium level this morning was at 6.7. I gave additional bicarb, D50 insulin and calcium to this patient and informed nephrology. She may need potentially dialysis as the patient may have severe lactic acidosis secondary to metformin. She is being monitored very closely. Blood gas was also done that showed a pH of 7.14 with a pCO2 of 24 and pO2 of 97 this was an FiO2 of 26%. Ultrasound of the kidneys shows no evidence of any hydronephrosis. CAT scan abdomen chest abdomen and pelvis shows right hemidiaphragmatic elevation, otherwise no other significant abnormalities. Despite all this abnormalities, the patient seems to be arousable and communicating. She seems to be appropriate. She is on 1 and half liters of oxygen by nasal cannula with a pulse ox of 95%. On 05/08/2024, the patient is being seen for a follow-up. She presented to us with severe metabolic and lactic acidosis. She also had an acute kidney injury. This is attributed to severe intravascular volume depletion and metformin induced lactic acidosis. The patient underwent hemodialysis yesterday. An emergent dialysis was performed as the patient was not producing much of urine output and the patient was also hyperkalemic along with severe metabolic acidosis. She also had severe lactic acidosis. On today's evaluation, the patient is feeling better. Hemodialysis was completed and a second session to be done today. Labs have improved compared to yesterday. Sodium is at 133, po tassium is down to 4, bicarb is at 18, BUN is 40 with a creatinine of 2.7. Lactic acid level has been downtrending and it peaked at 12.8 and dropped down to 5.8. Awake and alert and communicating. Remains on a bicarb infusion which is running at 75 cc an hour. She is also on norepinephrine at 0.13 mcg/kg/min. She has a right forearm femoral hemodialysis catheter and left femoral triple- lumen catheter. Hemoglobin dropped down to 6.8 and the patient is going to receive a unit of packed RBC. She is on 2 L of oxygen by nasal cannula. Awake and alert and communicating. Objective - Vital Signs Vital signs: Vital Signs Temp 98.9 F 05/08/24 09:32 Pulse 101 H 05/08/24 09:32 Resp 16 05/08/24 09:32 BP 133/63 05/08/24 09:32 Pulse Ox 95 05/08/24 09:32 FiO2 Intake & Output 05/07/24 05/08/24 05/08/24 18:59 06:59 18:59 Intake Total 268.688 0062.644 Output Total 70 625 Balance 467.356 403.644 Intake: Intake, IV Titration 537.356 478.644 Amount Norepinephrine 4 mg In 537.356 478.644 Sodium Chloride 0.9% 250 ml @ 0.03 MCG/KG/MIN 9. 436 mls/hr IV .Q24H PREM Rx#:[id number] Oral 50 Hemodialysis 500 Output: Urine 70 125 Uretheral (Enriquez) 125 Hemodialysis 500 Hemodialysis Net Amount 0 - Exam The patient appeared to be lethargic and weak. Arousable and communicating, currently on 2 L of oxygen by nasal cannula Head exam is unremarkable. No scleral icterus or corneal arcus noted. Neck is without jugular venous distension, thyromegaly, or carotid bruits. Carotid upstrokes are brisk bilaterally. Lungs are clear to auscultation and percussion. Cardiac exam reveals the PMI to be normally sized and situated. Rhythm is regular. First and second heart sounds normal. No murmurs, rubs or gallops. Abdominal exam reveals normal bowel sounds, no masses, no organomegaly and no aortic enlargement. Extremities show chronic skin mottling and areas of subcutaneous ecchymotic changes bilaterally and according to her, those abnormalities have been esse ntially chronic. Examination of the skin revealed no evidence of significant rashes, suspicious appearing nevi or other concerning lesions. Neurologically, the patient is awake and alert and the patient does not have any focal neurological deficit. Cranial nerves are essentially intact. - Labs CBC & Chem 7: 05/08/24 06:37 05/08/24 06:37 Labs: Abnormal Lab Results - Last 24 Hours (Table) 05/06/24 05/07/24 05/07/24 Range/Units 17:19 10:31 11:29 WBC (3.8-10.6) k/uL RBC (3.80-5.40) m/uL Hgb (11.4-16.0) gm/dL Hct (34.0-46.0) % MCV (80.0-100.0) fL MCH (25.0-35.0) pg RDW (11.5-15.5) % Neutrophils # (1.3-7.7) k/uL Lymphocytes # (1.0-4.8) k/uL Macrocytosis Sodium (137-145) mmol/L Potassium (3.5-5.1) mmol/L Carbon Dioxide (22-30) mmol/L BUN (7-17) mg/dL Creatinine (0.52-1.04) mg/dL Glucose (74-99) mg/dL POC Glucose (mg/dL) 293 H 228 H (70-110) mg/dL Plasma Lactic Acid Amrik (0.7-2.0) mmol/L Calcium (8.4-10.2) mg/dL Creatine Kinase (30-135) U/L Urine Opiates Screen Positive A (Negative) 05/07/24 05/07/24 05/07/24 Range/Units 11:42 11:42 11:42 WBC (3.8-10.6) k/uL RBC (3.80-5.40) m/uL Hgb (11.4-16.0) gm/dL Hct (34.0-46.0) % MCV (80.0-100.0) fL MCH (25.0-35.0) pg RDW (11.5-15.5) % Neutrophils # (1.3-7.7) k/uL Lymphocytes # (1.0-4.8) k/uL Macrocytosis Sodium 135 L (137-145) mmol/L Potassium 5.9 H (3.5-5.1) mmol/L Carbon Dioxide 7 L* (22-30) mmol/L BUN 55 H (7-17) mg/dL Creatinine 3.89 H (0.52-1.04) mg/dL Glucose 203 H (74-99) mg/dL POC Glucose (mg/dL) (70-110) mg/dL Plasma Lactic Acid Amrik 11.5 H* (0.7-2.0) mmol/L Calcium 8.3 L (8.4-10.2) mg/dL Creatine Kinase 1547 H* (30-135) U/L Urine Opiates Screen (Negative) 05/07/24 05/07/24 05/07/24 Range/Units 12:50 13:31 14:53 WBC (3.8-10.6) k/uL RBC (3.80-5.40) m/uL Hgb (11.4-16.0) gm/dL Hct (34.0-46.0) % MCV (80.0-100.0) fL MCH (25.0-35.0) pg RDW (11.5-15.5) % Neutrophils # (1.3-7.7) k/uL Lymphocytes # (1.0-4.8) k/uL Macrocytosis Sodium (137-145) mmol/L Potassium (3.5-5.1) mmol/L Carbon Dioxide (22-30) mmol/L BUN (7-17) mg/dL Creatinine (0.52-1.04) mg/dL Glucose (74-99) mg/dL POC Glucose (mg/dL) 218 H 244 H (70-110) mg/dL Plasma Lactic Acid Amrik 12.8 H* (0.7-2.0) mmol/L Calcium (8.4-10.2) mg/dL Creatine Kinase (30-135) U/L Urine Opiates Screen (Negative) 05/07/24 05/07/24 05/07/24 Range/Units 15:45 17:18 17:46 WBC (3.8-10.6) k/uL RBC (3.80-5.40) m/uL Hgb (11.4-16.0) gm/dL Hct (34.0-46.0) % MCV (80.0-100.0) fL MCH (25.0-35.0) pg RDW (11.5-15.5) % Neutrophils # (1.3-7.7) k/uL Lymphocytes # (1.0-4.8) k/uL Macrocytosis Sodium (137-145) mmol/L Potassium (3.5-5.1) mmol/L Carbon Dioxide (22-30) mmol/L BUN (7-17) mg/dL Creatinine (0.52-1.04) mg/dL Glucose (74-99) mg/dL POC Glucose (mg/dL) 177 H 202 H (70-110) mg/dL Plasma Lactic Acid Amrik 12.8 H* (0.7-2.0) mmol/L Calcium (8.4-10.2) mg/dL Creatine Kinase (30-135) U/L Urine Opiates Screen (Negative) 05/07/24 05/07/24 05/07/24 Range/Units 19:39 21:30 22:20 WBC (3.8-10.6) k/uL RBC (3.80-5.40) m/uL Hgb (11.4-16.0) gm/dL Hct (34.0-46.0) % MCV (80.0-100.0) fL MCH (25.0-35.0) pg RDW (11.5-15.5) % Neutrophils # (1.3-7.7) k/uL Lymphocytes # (1.0-4.8) k/uL Macrocytosis Sodium (137-145) mmol/L Potassium (3.5-5.1) mmol/L Carbon Dioxide (22-30) mmol/L BUN (7-17) mg/dL Creatinine (0.52-1.04) mg/dL Glucose (74-99) mg/dL POC Glucose (mg/dL) 172 H 111 H 181 H (70-110) mg/dL Plasma Lactic Acid Amrik (0.7-2.0) mmol/L Calcium (8.4-10.2) mg/dL Creatine Kinase (30-135) U/L Urine Opiates Screen (Negative) 05/07/24 05/08/24 05/08/24 Range/Units 23:41 01:47 02:35 WBC (3.8-10.6) k/uL RBC (3.80-5.40) m/uL Hgb (11.4-16.0) gm/dL Hct (34.0-46.0) % MCV (80.0-100.0) fL MCH (25.0-35.0) pg RDW (11.5-15.5) % Neutrophils # (1.3-7.7) k/uL Lymphocytes # (1.0-4.8) k/uL Macrocytosis Sodium (137-145) mmol/L Potassium (3.5-5.1) mmol/L Carbon Dioxide (22-30) mmol/L BUN (7-17) mg/dL Creatinine (0.52-1.04) mg/dL Glucose (74-99) mg/dL POC Glucose (mg/dL) 122 H 260 H (70-110) mg/dL Plasma Lactic Acid Amrik 9.5 H* (0.7-2.0) mmol/L Calcium (8.4-10.2) mg/dL Creatine Kinase (30-135) U/L Urine Opiates Screen (Negative) 05/08/24 05/08/24 05/08/24 Range/Units 06:37 06:37 06:37 WBC 11.4 H (3.8-10.6) k/uL RBC 1.90 L (3.80-5.40) m/uL Hgb 6.8 L* (11.4-16.0) gm/dL Hct 20.2 L (34.0-46.0) % MCV 106.3 H D (80.0-100.0) fL MCH 35.6 H (25.0-35.0) pg RDW 17.3 H (11.5-15.5) % Neutrophils # 9.9 H (1.3-7.7) k/uL Lymphocytes # 0.7 L (1.0-4.8) k/uL Macrocytosis Marked A Sodium 133 L (137-145) mmol/L Potassium (3.5-5.1) mmol/L Carbon Dioxide 18 L (22-30) mmol/L BUN 40 H (7-17) mg/dL Creatinine 2.75 H (0.52-1.04) mg/dL Glucose (74-99) mg/dL POC Glucose (mg/dL) (70-110) mg/dL Plasma Lactic Acid Amrik 7.6 H* (0.7-2.0) mmol/L Calcium 7.2 L (8.4-10.2) mg/dL Creatine Kinase 1367 H* (30-135) U/L Urine Opiates Screen (Negative) Microbiology - Last 24 Hours (Table) 05/06/24 14:35 Urine Culture - Final Urine,Clean Catch 05/06/24 15:23 Blood Culture - Preliminary Blood Assessment and Plan Plan: Acute Hypovolemic shock, refractory to fluids and currently the patient is on pressors. Continues to be hypotensive while being on fluids and the patient is currently on norepinephrine running at 0.13 mcg/kg/min, currently on bicarb infusion. Aggressive resuscitated with IV fluids. Acute kidney injury, no evidence of any obstructive uropathy. Urine output is gradually improving although the patient continues to be oliguric Acute lactic acidosis, secondary to dehydration, hypoperfusion and metformin, improved postdialysis and the lactic acid level is down to 5.7 Acute hyperkalemia secondary to acute kidney injury and metabolic acidosis, recovered Acute rhabdomyolysis Acute on top of chronic anemia with a hemoglobin of 6.8 Anion gap metabolic acidosis secondary to above, improving still on a bicarb infusion Diabetes mellitus type 2, currently off metformin and Lantus insulin and Ozempic Altered mental status, improved secondary to above, improved Chronic right hemidiaphragmatic paralysis Hypertension Hyperlipidemia Previous history of DVT maintained on anticoagulation on outpatient basis COPD maintained on Symbicort on outpatient basis Hypothyroidism Degenerative arthritis Remote history of COVID-19 pneumonia back in 2021 Plan The patient is currently on 2 L of oxygen by nasal cannula Continue bicarb infusion Monitor lactic acid level Urine output is gradually improving, although still is oliguric Keep pressors for hemodynamic support and the patient remains on norepinephrine Another session of hemodialysis today Modified the Eliquis dose to 2.5 mg twice a day CAT scan of the chest abdomen pelvis was noted and the patient has no other acute abnormalities. Antibiotic coverage is currently empiric and the patient has been given a combination of Zosyn Discontinue vancomycin Nephrology on the case Transfused with a unit of packed RBC The patient will need to be transferred to the intensive care unit. Time with Patient: Greater than 30
[2024-05-08 13:57] LABS: Hepatitis B Surface AB- Quant 3.5 mIU/mL
[2024-05-08] MEDS: FUROSEMIDE 10 MG/ML 10 ML VIAL IV STA (15:25)
[2024-05-08 17:51] LABS: Anisocytosis Slight; HGB 7.8 gm/dL (11.4-16.0); MCH 34.4 pg (25.0-35.0); MCHC 33.8 g/dL (31.0-37.0); MCV 101.9 fL (80.0-100.0); Macrocytosis Moderate; Mean Platelet Volume 8.4; Platelet Count 226 k/uL (150-450); RBC 2.26 m/uL (3.80-5.40); RDW 18.2 % (11.5-15.5); WBC 11.7 k/uL (3.8-10.6)
[2024-05-08 18:14] LABS: African American GFR (CKD) 23 (>60 ml/min/1.73 sqM); Anion Gap 11 mmol/L; Blood Urea Nitrogen 34 mg/dL (7-17); Calcium 6.9 mg/dL (8.4-10.2); Carbon Dioxide 26 mmol/L (22-30); Chloride 96 mmol/L (98-107); Glucose 120 mg/dL (74-99); Non-African American GFR(CKD) 20 (>60 ml/min/1.73 sqM); Potassium 3.4 mmol/L (3.5-5.1); Sodium 133 mmol/L (137-145)
[2024-05-08] MEDS: LACTATED RINGERS 500 ML IV SCH (19:11)
[2024-05-08 22:50] LABS: % Iron Saturation 59.3 (12.00-45.00); Complement C3 63.6 mg/dL (80.0-207.0)
[2024-05-08 23:08] LABS: Hepatitis C IgG Antibody Nonreactive (Nonreactive)
[2024-05-08] MEDS: POTASSIUM BICARBONATE/CIT AC 20 MEQ TABLET.EFF PO SCH (23:54)
[2024-05-09 04:28] LABS: Anisocytosis Slight; Basophils % (A) 0 %; Eosinophils % (A) 0 %; HGB 7.8 gm/dL (11.4-16.0); Lymphocytes # (A) 0.7 k/uL (1.0-4.8); Lymphocytes % (A) 7 %; MCH 34.7 pg (25.0-35.0); MCHC 34.1 g/dL (31.0-37.0); MCV 101.9 fL (80.0-100.0); Macrocytosis Moderate; Mean Platelet Volume 9.5; Monocytes # (A) 0.6 k/uL (0-1.0); Monocytes % (A) 6 %; Neutrophils # (A) 7.9 k/uL (1.3-7.7); Neutrophils % (A) 85 %; Platelet Count 194 k/uL (150-450); RBC 2.25 m/uL (3.80-5.40); RDW 18.2 % (11.5-15.5); WBC 9.4 k/uL (3.8-10.6)
[2024-05-09 05:10] LABS: ALT 100 U/L (4-34); AST 140 U/L (14-36); African American GFR (CKD) 19 (>60 ml/min/1.73 sqM); Albumin 2.4 g/dL (3.5-5.0); Alkaline Phosphatase 64 U/L (38-126); Anion Gap 10 mmol/L; Blood Urea Nitrogen 38 mg/dL (7-17); Calcium 6.8 mg/dL (8.4-10.2); Carbon Dioxide 27 mmol/L (22-30); Chloride 96 mmol/L (98-107); Glucose 98 mg/dL (74-99); Non-African American GFR(CKD) 17 (>60 ml/min/1.73 sqM); Potassium 3.7 mmol/L (3.5-5.1); Sodium 133 mmol/L (137-145); Total Bilirubin 0.6 mg/dL (0.2-1.3); Total Protein 4.2 g/dL (6.3-8.2)
[2024-05-09 06:24] LABS: Glucose,Whole Blood 111 mg/dL (70-110)
--- NOTE | 2024-05-09 08:22 | IR ---
EXAMINATION TYPE: IR cvc insert non tunneled DATE OF EXAM: 05/07/2024 2:57 PM COMPARISON: Pre Operative Images if available both CT/MRI or plain film CLINICAL INDICATION: Female, 69 years old with history of Dialysis, portable Abd, 12.5F x 30 [facility] Dialysis cath; TECHNIQUE: IR cvc insert non tunneled, multiple fluoroscopic images provided for procedure. Total fluoroscopy time: not reported Total submitted images to PACS: none DAP: not reported mGym2 Gycm2 uGym2 cGycm2 or equivalent. FINDINGS: IMPRESSION: 1. Report was generated for administrative purposes only. 2. Please see the operative/procedural note for further details. [facility], , 05/09/2024 8:19 AM
--- NOTE | 2024-05-09 08:50 | P.PN ---
Subjective Patient is seen in follow-up for acute kidney injury. Started on hemodialysis May 07, 2024. Currently on lactated Ringer's. Off vasopressors. Vital signs are stable. General: Resting in bed. HEENT: On nasal cannula. LUNGS: No audible rhonchi or wheezes. HEART: Rate and Rhythm are regular. ABDOMEN: No distention. EXTREMITITES: No edema. Chronic changes noted. Objective - Vital Signs Vital signs: Vital Signs Temp 97.9 F 05/09/24 00:00 Pulse 90 05/09/24 07:00 Resp 21 05/09/24 07:00 BP 131/71 05/09/24 07:00 Pulse Ox 98 05/09/24 07:00 FiO2 Intake & Output 05/08/24 05/09/24 05/09/24 18:59 06:59 18:59 Intake Total 1436.371 738.879 60 Output Total 580 165 20 Balance 856.371 573.879 40 Weight 82.554 kg 101.5 kg Intake: Intake, IV Titration 626.371 738.879 60 Amount Dextrose 5% in Water 1, 150 75 000 ml @ 100 mls/hr IV . [id number] PREM with Sodium Bicarb (1 Meq/ml) 150 ml Rx#:[id number] Lactated Ringers 500 ml @ 660 60 60 mls/hr IV .[id number] PREM Rx#:[id number] Norepinephrine 4 mg In 476.371 3.879 Sodium Chloride 0.9% 250 ml @ 0.03 MCG/KG/MIN 9. 436 mls/hr IV .Q24H PREM Rx#:[id number] Blood Product 310 Rc As-1 Unit 310 [id number] Hemodialysis 500 Output: Urine 80 165 20 Hemodialysis 500 Hemodialysis Net Amount 0 Other: Voiding Method Indwelling Catheter Indwelling Catheter # Bowel Movements 1 - Labs CBC & Chem 7: 05/09/24 04:11 05/09/24 04:11 Labs: Abnormal Lab Results - Last 24 Hours (Table) 05/08/24 05/08/24 05/08/24 Range/Units 09:23 10:07 11:48 WBC (3.8-10.6) k/uL RBC (3.80-5.40) m/uL Hgb (11.4-16.0) gm/dL Hct (34.0-46.0) % MCV (80.0-100.0) fL RDW (11.5-15.5) % Neutrophils # (1.3-7.7) k/uL Lymphocytes # (1.0-4.8) k/uL Sodium (137-145) mmol/L Potassium (3.5-5.1) mmol/L Chloride (98-107) mmol/L BUN (7-17) mg/dL Creatinine (0.52-1.04) mg/dL Glucose (74-99) mg/dL POC Glucose (mg/dL) 149 H (70-110) mg/dL Plasma Lactic Acid Amrik 5.8 H* (0.7-2.0) mmol/L Calcium (8.4-10.2) mg/dL TIBC (228-460) UG/DL % Saturation (12.00-45.00) Transferrin (204.0-354.0) mg/dL AST (14-36) U/L ALT (4-34) U/L Total Protein (6.3-8.2) g/dL Albumin (3.5-5.0) g/dL Complement C3 (80.0-207.0) mg/dL Crossmatch See Detail 05/08/24 05/08/24 05/08/24 Range/Units 11:55 14:06 17:20 WBC 11.7 H (3.8-10.6) k/uL RBC 2.26 L (3.80-5.40) m/uL Hgb 7.8 L (11.4-16.0) gm/dL Hct 23.0 L (34.0-46.0) % MCV 101.9 H (80.0-100.0) fL RDW 18.2 H (11.5-15.5) % Neutrophils # (1.3-7.7) k/uL Lymphocytes # (1.0-4.8) k/uL Sodium (137-145) mmol/L Potassium (3.5-5.1) mmol/L Chloride (98-107) mmol/L BUN (7-17) mg/dL Creatinine (0.52-1.04) mg/dL Glucose (74-99) mg/dL POC Glucose (mg/dL) (70-110) mg/dL Plasma Lactic Acid Amrik 5.9 H* (0.7-2.0) mmol/L Calcium (8.4-10.2) mg/dL TIBC 172 L (228-460) UG/DL % Saturation 59.30 H (12.00-45.00) Transferrin 123.0 L (204.0-354.0) mg/dL AST (14-36) U/L ALT (4-34) U/L Total Protein (6.3-8.2) g/dL Albumin (3.5-5.0) g/dL Complement C3 63.6 L (80.0-207.0) mg/dL Crossmatch 05/08/24 05/08/24 05/08/24 Range/Units 17:20 17:20 20:53 WBC (3.8-10.6) k/uL RBC (3.80-5.40) m/uL Hgb (11.4-16.0) gm/dL Hct (34.0-46.0) % MCV (80.0-100.0) fL RDW (11.5-15.5) % Neutrophils # (1.3-7.7) k/uL Lymphocytes # (1.0-4.8) k/uL Sodium 133 L (137-145) mmol/L Potassium 3.4 L 3.4 L (3.5-5.1) mmol/L Chloride 96 L (98-107) mmol/L BUN 34 H (7-17) mg/dL Creatinine 2.46 H (0.52-1.04) mg/dL Glucose 120 H (74-99) mg/dL POC Glucose (mg/dL) (70-110) mg/dL Plasma Lactic Acid Amrik 5.3 H* (0.7-2.0) mmol/L Calcium 6.9 L (8.4-10.2) mg/dL TIBC (228-460) UG/DL % Saturation (12.00-45.00) Transferrin (204.0-354.0) mg/dL AST (14-36) U/L ALT (4-34) U/L Total Protein (6.3-8.2) g/dL Albumin (3.5-5.0) g/dL Complement C3 (80.0-207.0) mg/dL Crossmatch 05/08/24 05/08/24 05/09/24 Range/Units 20:53 23:57 04:11 WBC (3.8-10.6) k/uL RBC 2.25 L (3.80-5.40) m/uL Hgb 7.8 L (11.4-16.0) gm/dL Hct 23.0 L (34.0-46.0) % MCV 101.9 H (80.0-100.0) fL RDW 18.2 H (11.5-15.5) % Neutrophils # 7.9 H (1.3-7.7) k/uL Lymphocytes # 0.7 L (1.0-4.8) k/uL Sodium (137-145) mmol/L Potassium (3.5-5.1) mmol/L Chloride (98-107) mmol/L BUN (7-17) mg/dL Creatinine (0.52-1.04) mg/dL Glucose (74-99) mg/dL POC Glucose (mg/dL) (70-110) mg/dL Plasma Lactic Acid Amrik 5.5 H* 5.2 H* (0.7-2.0) mmol/L Calcium (8.4-10.2) mg/dL TIBC (228-460) UG/DL % Saturation (12.00-45.00) Transferrin (204.0-354.0) mg/dL AST (14-36) U/L ALT (4-34) U/L Total Protein (6.3-8.2) g/dL Albumin (3.5-5.0) g/dL Complement C3 (80.0-207.0) mg/dL Crossmatch 05/09/24 05/09/24 05/09/24 Range/Units 04:11 04:11 06:22 WBC (3.8-10.6) k/uL RBC (3.80-5.40) m/uL Hgb (11.4-16.0) gm/dL Hct (34.0-46.0) % MCV (80.0-100.0) fL RDW (11.5-15.5) % Neutrophils # (1.3-7.7) k/uL Lymphocytes # (1.0-4.8) k/uL Sodium 133 L (137-145) mmol/L Potassium (3.5-5.1) mmol/L Chloride 96 L (98-107) mmol/L BUN 38 H (7-17) mg/dL Creatinine 2.84 H (0.52-1.04) mg/dL Glucose (74-99) mg/dL POC Glucose (mg/dL) 111 H (70-110) mg/dL Plasma Lactic Acid Amrik 4.8 H* (0.7-2.0) mmol/L Calcium 6.8 L (8.4-10.2) mg/dL TIBC (228-460) UG/DL % Saturation (12.00-45.00) Transferrin (204.0-354.0) mg/dL AST 140 H (14-36) U/L ALT 100 H (4-34) U/L Total Protein 4.2 L (6.3-8.2) g/dL Albumin 2.4 L (3.5-5.0) g/dL Complement C3 (80.0-207.0) mg/dL Crossmatch 05/09/24 Range/Units 07:05 WBC (3.8-10.6) k/uL RBC (3.80-5.40) m/uL Hgb (11.4-16.0) gm/dL Hct (34.0-46.0) % MCV (80.0-100.0) fL RDW (11.5-15.5) % Neutrophils # (1.3-7.7) k/uL Lymphocytes # (1.0-4.8) k/uL Sodium (137-145) mmol/L Potassium (3.5-5.1) mmol/L Chloride (98-107) mmol/L BUN (7-17) mg/dL Creatinine (0.52-1.04) mg/dL Glucose (74-99) mg/dL POC Glucose (mg/dL) (70-110) mg/dL Plasma Lactic Acid Amrik 4.7 H* (0.7-2.0) mmol/L Calcium (8.4-10.2) mg/dL TIBC (228-460) UG/DL % Saturation (12.00-45.00) Transferrin (204.0-354.0) mg/dL AST (14-36) U/L ALT (4-34) U/L Total Protein (6.3-8.2) g/dL Albumin (3.5-5.0) g/dL Complement C3 (80.0-207.0) mg/dL Crossmatch Microbiology - Last 24 Hours (Table) 05/07/24 12:00 Blood Culture - Preliminary Blood 05/06/24 15:23 Blood Culture - Preliminary Blood Assessment and Plan Plan: Assessment: 1. Acute kidney injury secondary to ATN secondary to shock. Creatinine 0.8 in September 2023 and elevated at 4.09 this admission. Oliguric. Started on hemodialysis May 07, 2024. No hydronephrosis noted on imaging. UA with 2+ protein and no blood. 2. Anion gap metabolic acidosis secondary to acute kidney injury, lactic acidosis and use of metformin. Improved with bicarb drip and dialysis. Urine ketones and serum acetone negative. 3. Acute blood loss anemia status post blood transfusion this admission. Platelet count normal. 4. Chronic kidney disease stage I with baseline creatinine near 0.8 from September 2023. She has underlying diabetic kidney disease with proteinuria. 5. Hyperkalemia secondary to acute kidney injury and acidosis. Resolved. Plan: Hemodialysis today. Follow-up serologies. C3 noted to be low. Change IV fluids from lactated Ringer's to normal saline at 60 cc an hour. Monitor for renal recovery. Status post IV Lasix given May 08, 2024 with no significant change in urine output.
[2024-05-09] MEDS ORDERED: NON FORMULARY DRUG (Semaglutide [Ozempic] 1 MG/0.75 ML Each) SQ SCH (09:00)
[2024-05-09] MEDS: SODIUM CHLORIDE 0.9% 1,000 ML IV SCH (09:18)
[2024-05-09 10:45] LABS: Reticulocyte % 0.3 % (0.5-2.0)
[2024-05-09 11:03] LABS: Glucose,Whole Blood 89 mg/dL (70-110)
--- NOTE | 2024-05-09 12:09 | P.PN ---
Subjective Progress Note Date: 05/09/24 Principal diagnosis: Hypovolemic shock and acute kidney injury with severe lactic acidosis secondary to metformin ,associated with dehydration. On 05/07/2024, the patient is being seen in consultation in the emergency department for hypotension and severe lactic acidosis. The patient is known to have diabetes mellitus type 2, hypertension hyperlipidemia and previous history of a DVT for which she has been maintained on anticoagulation. She is also known to have a chronic right hemidiaphragmatic paralysis. The patient came into the hospital feeling generalized weakness and she also had diminished level of consciousness and she was having episodes of hypoglycemia. Notably, the patient has been receiving a combination of medication for diabetes which included Lantus insulin, Ozempic, metformin and short acting insulin for blood sugars controlled. The patient was started on D5 water and subsequent blood work showed severe metabolic derangements. The patient's serum bicarb was at 8. The patient's lactic acid level was initially at 8.5 and potassium level was at 6.1. She did have an anion gap of 21 at the time of the admission. At the same time, her calcium level was 8, 9 she had a rhabdomyolysis with a CPK of 2190, troponins were negative, procalcitonin level was at 0.8. UA showed +2 proteins, and acetone was negative. The white cell count was at 12.6 with a hemoglobin of 8.8 and a platelet count of 353. The patient received a total of 4.5 L of IV fluids in the emergency department and subsequently she was started on pressors and currently norepinephrine is running at 0.16 mcg/kg/min. Triple-lumen catheter was inserted. Subsequently, the patient was switched to a bicarb infusion at rate of 125 cc an hour. Most recent labs showed ongoing acidosis with a serum bicarb of 6, lactic acid remains at 9.1. There has been some modest improvement in the kidney function as initial creatinine was at 4.09 and the creatinine is down to 3.81. Potassium level this morning was at 6.7. I gave additional bicarb, D50 insulin and calcium to this patient and informed nephrology. She may need potentially dialysis as the patient may have severe lactic acidosis secondary to metformin. She is being monitored very closely. Blood gas was also done that showed a pH of 7.14 with a pCO2 of 24 and pO2 of 97 this was an FiO2 of 26%. Ultrasound of the kidneys shows no evidence of any hydronephrosis. CAT scan abdomen chest abdomen and pelvis shows right hemidiaphragmatic elevation, otherwise no other significant abnormalities. Despite all this abnormalities, the patient seems to be arousable and communicating. She seems to be appropriate. She is on 1 and half liters of oxygen by nasal cannula with a pulse ox of 95%. On 05/08/2024, the patient is being seen for a follow-up. She presented to us with severe metabolic and lactic acidosis. She also had an acute kidney injury. This is attributed to severe intravascular volume depletion and metformin induced lactic acidosis. The patient underwent hemodialysis yesterday. An emergent dialysis was performed as the patient was not producing much of urine output and the patient was also hyperkalemic along with severe metabolic acidosis. She also had severe lactic acidosis. On today's evaluation, the patient is feeling better. Hemodialysis was completed and a second session to be done today. Labs have improved compared to yesterday. Sodium is at 133, potassium is down to 4, bicarb is at 18, BUN is 40 with a creatinine of 2.7. Lactic acid level has been downtrending and it peaked at 12.8 and dropped down to 5.8. Awake and alert and communicating. Remains on a bicarb infusion which is running at 75 cc an hour. She is also on norepinephrine at 0.13 mcg/kg/min. She has a right forearm femoral hemodialysis catheter and left femoral triple- lumen catheter. Hemoglobin dropped down to 6.8 and the patient is going to receive a unit of packed RBC. She is on 2 L of oxygen by nasal cannula. Awake and alert and communicating. Patient was seen today on 05/19/2024, remains in the ICU, on 2 L nasal cannula, off norepinephrine for the last 12 hours, patient is on hemodialysis last hemodialysis was 05/07. Fluid is at 75 cc/h 0.9 normal saline, patient is lethargic but alert, able to answer questions, urine output remains marginal between 10 to 20 cc/h remains on Zosyn. Patient is steadily improving, her labs showed relatively normal CBC, electrolytes are normal bicarb is 27 BUN is 38 creatinine 2.84 procalcitonin level on admission was 0.83, blood cultures remain negative since admission Objective - Vital Signs Vital signs: Vital Signs Temp 98.7 F 05/09/24 08:00 Pulse 91 05/09/24 10:00 Resp 19 05/09/24 10:00 BP 132/71 05/09/24 10:00 Pulse Ox 97 05/09/24 10:00 FiO2 Intake & Output 05/08/24 05/09/24 05/09/24 18:59 06:59 18:59 Intake Total 1436.371 738.879 270 Output Total 580 165 60 Balance 856.371 573.879 210 Weight 82.554 kg 101.5 kg Intake: IV 210 Sodium Chloride 0.9% 1, 210 000 ml @ 75 mls/hr IV . [id number] PREM Rx#:[id number] Intake, IV Titration 626.371 738.879 60 Amount Dextrose 5% in Water 1, 150 75 000 ml @ 100 mls/hr IV . [id number] PREM with Sodium Bicarb (1 Meq/ml) 150 ml Rx#:[id number] Lactated Ringers 500 ml @ 660 60 60 mls/hr IV [id number] PREM Rx#:[id number] Norepinephrine 4 mg In 476.371 3.879 Sodium Chloride 0.9% 250 ml @ 0.03 MCG/KG/MIN 9. 436 mls/hr IV .Q24H PREM Rx#:[id number] Blood Product 310 Rc As-1 Unit 310 [id number] Hemodialysis 500 Output: Urine 80 165 60 Hemodialysis 500 Hemodialysis Net Amount 0 Other: Voiding Method Indwelling Catheter Indwelling Catheter Indwelling Catheter # Bowel Movements 1 - Exam General: [Revealed 69-year-old female on 2 L nasal cannula, in no distress Derm: No rashes, skin is warm and dry Head: Atraumatic, normocephalic Eyes: EOMI, nonicteric, no neck masses no JVD Mouth: Moist mucous membranes Cardiovascular: Normal S1-S2, no S3 gallop Lungs: Clear bilaterally no rhonchi no wheezes Abdominal: Soft nontender no MAG no rebound no guarding Ext: Chronic venous stasis changes noted in the lower extremities otherwise unremarkable Neuro: Patient is lethargic, but arousable and follows simple instructions Psych: [Could not fully assess but seems to be relatively intact - Labs CBC & Chem 7: 05/09/24 04:11 05/09/24 04:11 Labs: Abnormal Lab Results - Last 24 Hours (Table) 05/08/24 05/08/24 05/08/24 Range/Units 09:23 11:55 14:06 WBC (3.8-10.6) k/uL RBC (3.80-5.40) m/uL Hgb (11.4-16.0) gm/dL Hct (34.0-46.0) % MCV (80.0-100.0) fL RDW (11.5-15.5) % Neutrophils # (1.3-7.7) k/uL Lymphocytes # (1.0-4.8) k/uL Retic Count (0.5-2.0) % Sodium (137-145) mmol/L Potassium (3.5-5.1) mmol/L Chloride (98-107) mmol/L BUN (7-17) mg/dL Creatinine (0.52-1.04) mg/dL Glucose (74-99) mg/dL POC Glucose (mg/dL) (70-110) mg/dL Plasma Lactic Acid Amrik 5.9 H* (0.7-2.0) mmol/L Calcium (8.4-10.2) mg/dL TIBC 172 L (228-460) UG/DL % Saturation 59.30 H (12.00-45.00) Transferrin 123.0 L (204.0-354.0) mg/dL AST (14-36) U/L ALT (4-34) U/L Lactate Dehydrogenase (120-246) U/L Total Protein (6.3-8.2) g/dL Albumin (3.5-5.0) g/dL Complement C3 63.6 L (80.0-207.0) mg/dL Crossmatch See Detail 05/08/24 05/08/24 05/08/24 Range/Units 17:20 17:20 17:20 WBC 11.7 H (3.8-10.6) k/uL RBC 2.26 L (3.80-5.40) m/uL Hgb 7.8 L (11.4-16.0) gm/dL Hct 23.0 L (34.0-46.0) % MCV 101.9 H (80.0-100.0) fL RDW 18.2 H (11.5-15.5) % Neutrophils # (1.3-7.7) k/uL Lymphocytes # (1.0-4.8) k/uL Retic Count (0.5-2.0) % Sodium 133 L (137-145) mmol/L Potassium 3.4 L (3.5-5.1) mmol/L Chloride 96 L (98-107) mmol/L BUN 34 H (7-17) mg/dL Creatinine 2.46 H (0.52-1.04) mg/dL Glucose 120 H (74-99) mg/dL POC Glucose (mg/dL) (70-110) mg/dL Plasma Lactic Acid Amrik 5.3 H* (0.7-2.0) mmol/L Calcium 6.9 L (8.4-10.2) mg/dL TIBC (228-460) UG/DL % Saturation (12.00-45.00) Transferrin (204.0-354.0) mg/dL AST (14-36) U/L ALT (4-34) U/L Lactate Dehydrogenase (120-246) U/L Total Protein (6.3-8.2) g/dL Albumin (3.5-5.0) g/dL Complement C3 (80.0-207.0) mg/dL Crossmatch 05/08/24 05/08/24 05/08/24 Range/Units 20:53 20:53 23:57 WBC (3.8-10.6) k/uL RBC (3.80-5.40) m/uL Hgb (11.4-16.0) gm/dL Hct (34.0-46.0) % MCV (80.0-100.0) fL RDW (11.5-15.5) % Neutrophils # (1.3-7.7) k/uL Lymphocytes # (1.0-4.8) k/uL Retic Count (0.5-2.0) % Sodium (137-145) mmol/L Potassium 3.4 L (3.5-5.1) mmol/L Chloride (98-107) mmol/L BUN (7-17) mg/dL Creatinine (0.52-1.04) mg/dL Glucose (74-99) mg/dL POC Glucose (mg/dL) (70-110) mg/dL Plasma Lactic Acid Armik 5.5 H* 5.2 H* (0.7-2.0) mmol/L Calcium (8.4-10.2) mg/dL TIBC (228-460) UG/DL % Saturation (12.00-45.00) Transferrin (204.0-354.0) mg/dL AST (14-36) U/L ALT (4-34) U/L Lactate Dehydrogenase (120-246) U/L Total Protein (6.3-8.2) g/dL Albumin (3.5-5.0) g/dL Complement C3 (80.0-207.0) mg/dL Crossmatch 05/09/24 05/09/24 05/09/24 Range/Units 04:11 04:11 04:11 WBC (3.8-10.6) k/uL RBC 2.25 L (3.80-5.40) m/uL Hgb 7.8 L (11.4-16.0) gm/dL Hct 23.0 L (34.0-46.0) % MCV 101.9 H (80.0-100.0) fL RDW 18.2 H (11.5-15.5) % Neutrophils # 7.9 H (1.3-7.7) k/uL Lymphocytes # 0.7 L (1.0-4.8) k/uL Retic Count (0.5-2.0) % Sodium 133 L (137-145) mmol/L Potassium (3.5-5.1) mmol/L Chloride 96 L (98-107) mmol/L BUN 38 H (7-17) mg/dL Creatinine 2.84 H (0.52-1.04) mg/dL Glucose (74-99) mg/dL POC Glucose (mg/dL) (70-110) mg/dL Plasma Lactic Acid Amrik 4.8 H* (0.7-2.0) mmol/L Calcium 6.8 L (8.4-10.2) mg/dL TIBC (228-460) UG/DL % Saturation (12.00-45.00) Transferrin (204.0-354.0) mg/dL AST 140 H (14-36) U/L ALT 100 H (4-34) U/L Lactate Dehydrogenase (120-246) U/L Total Protein 4.2 L (6.3-8.2) g/dL Albumin 2.4 L (3.5-5.0) g/dL Complement C3 (80.0-207.0) mg/dL Crossmatch 05/09/24 05/09/24 05/09/24 Range/Units 06:22 07:05 09:55 WBC (3.8-10.6) k/uL RBC (3.80-5.40) m/uL Hgb (11.4-16.0) gm/dL Hct (34.0-46.0) % MCV (80.0-100.0) fL RDW (11.5-15.5) % Neutrophils # (1.3-7.7) k/uL Lymphocytes # (1.0-4.8) k/uL Retic Count (0.5-2.0) % Sodium (137-145) mmol/L Potassium (3.5-5.1) mmol/L Chloride (98-107) mmol/L BUN (7-17) mg/dL Creatinine (0.52-1.04) mg/dL Glucose (74-99) mg/dL POC Glucose (mg/dL) 111 H (70-110) mg/dL Plasma Lactic Acid Amrik 4.7 H* 4.5 H* (0.7-2.0) mmol/L Calcium (8.4-10.2) mg/dL TIBC (228-460) UG/DL % Saturation (12.00-45.00) Transferrin (204.0-354.0) mg/dL AST (14-36) U/L ALT (4-34) U/L Lactate Dehydrogenase (120-246) U/L Total Protein (6.3-8.2) g/dL Albumin (3.5-5.0) g/dL Complement C3 (80.0-207.0) mg/dL Crossmatch 05/09/24 05/09/24 Range/Units 10:30 10:30 WBC (3.8-10.6) k/uL RBC (3.80-5.40) m/uL Hgb (11.4-16.0) gm/dL Hct (34.0-46.0) % MCV (80.0-100.0) fL RDW (11.5-15.5) % Neutrophils # (1.3-7.7) k/uL Lymphocytes # (1.0-4.8) k/uL Retic Count 0.3 L (0.5-2.0) % Sodium (137-145) mmol/L Potassium (3.5-5.1) mmol/L Chloride (98-107) mmol/L BUN (7-17) mg/dL Creatinine (0.52-1.04) mg/dL Glucose (74-99) mg/dL POC Glucose (mg/dL) (70-110) mg/dL Plasma Lactic Acid Amrik (0.7-2.0) mmol/L Calcium (8.4-10.2) mg/dL TIBC (228-460) UG/DL % Saturation (12.00-45.00) Transferrin (204.0-354.0) mg/dL AST (14-36) U/L ALT (4-34) U/L Lactate Dehydrogenase 561 H (120-246) U/L Total Protein (6.3-8.2) g/dL Albumin (3.5-5.0) g/dL Complement C3 (80.0-207.0) mg/dL Crossmatch Microbiology - Last 24 Hours (Table) 05/07/24 12:00 Blood Culture - Preliminary Blood 05/06/24 15:23 Blood Culture - Preliminary Blood Assessment and Plan Assessment: Impression: Acute Hypovolemic shock Acute kidney injury Acute lactic acidosis, related to dehydration and metformin patient improved with dialysis Acute hyperkalemia secondary to acute kidney injury and metabolic acidosis, recovered Acute rhabdomyolysis Acute on chronic anemia Type 2 diabetes, patient has been on Ozempic insulin Lantus and metformin which is presently off Chronic right hemidiaphragm paralysis Acute metabolic encephalopathy History of hypertension Dyslipidemia Previous history of DVT, on anticoagulation therapy on outpatient basis History of underlying COPD Hypothyroidism Anion gap metabolic acidosis resolved this is most likely to the combination of dehydration and metformin Recommendation: Continue present supportive care measures Continue IV fluids Patient is off norepinephrine today Nephrology is addressing hemodialysis on daily basis Continue Eliquis 2.5 mg twice daily Continue empiric antibiotics including Zosyn, vancomycin has been discontinued Continue to monitor electrolytes and daily CBC transfuse if hemoglobin below 7 Transfer patient to a monitored bed and selective Will continue to follow Time with Patient: Less than 30
[2024-05-09 13:55] LABS: Anti-DNA, DS unit <1.0 IU/mL; DNA Double-Stranded Negative (Negative)
[2024-05-09 15:58] LABS: Glucose,Whole Blood 94 mg/dL (70-110)
--- NOTE | 2024-05-09 17:21 | P.PN ---
Subjective Progress Note Date: 05/09/24 Hospital Course: A 69-year-old female with past medical history of difficult to control diabetes, history of DVT on Eliquis, HLD, HTN, osteoarthritis, hypothyroidism, history of hypoxic respiratory failure due to pneumonia requiring supplemental oxygen use, history of MSSA sepsis 2016, MRSA bacteremia 2016, recent UTI treated with outpatient antibiotics, who presented to the ER complaining of generalized weakness, low blood sugar, nausea, vomiting. Patient was throwing up for several days, multiple times a day, stopped on 05/05, no associated abdominal pain, bowel habit changes, fevers, chills. Patient states that she went down on her Lantus while throwing up (she is usually on 24 in the AM and 30 p.m., was taking 18 and 28 accordingly)., She is also on metformin 1000 twice daily, Ozempic 1 mg, She did have recent UTI that was treated as outpatient with oral antibiotics, she is not sure what type of antibiotic and for how long she was on it. She noted urinary frequency. ED course: Patient's blood pressure was 102/44 on admission, heart rate in 80s, afebrile initially. EKG showed QTc of 434, junctional rhythm. Chest x-ray with no acute process. CT of the abdomen and pelvis showed chronic elevation of the right hemidiaphragm and no source of infection. Kidney bladder ultrasound showed anechoic bladder, no hydronephrosis, no nephrolithiasis and masses. Lab work significant for leukocytosis 12.6, anemia hemoglobin 8.8, macrocytosis, sodium 136, potassium 5.6, bicarb 9, BUN 68, creatinine 4.09, lactate 8.3, phosphorus 5.8, ALT elevated 124 AST 119, CK 2190, trended down to 2020. Negative troponin, CRP negative, UA positive for proteinuria and hematuria, v iral panel negative. Sepsis protocol was initiated, blood in the urine cultures obtained, fluid bolus given, received hyperkalemia cocktail with calcium gluconate, insulin, Lokelma. Patient has been having profound hypotension that did not respond to fluid bolus and was started on Levophed, femoral central line placed in the ER. Patient was started on broad-spectrum antibiotics with Zosyn, vancomycin, started on bicarb drip, D10 drip, Solu-Medrol. Patient had mild improvement of hyperkalemia after hyperkalemia cocktail, potassium again elevated 05/07 in the morning at 6.7, another hyperkalemia protocol given with IV insulin, calcium gluconate, bicarb pushes x 2. Despite continuous IV hydration, bicarb drip, patient continued to be profoundly acidotic with carbon dioxide trending down from 9-6, ABG showed pH of 7.14, lactic acid up to 9.7. Nephrology consulted. IR consulted for tunneled catheter placement, plan for HD 05/08 ICU consulted. Awaiting for an ICU bed 05/08 hemoglobin noted at 6.8, 1 unit of PRBC ordered, Eliquis was previously decreased to 2.5 twice daily, now on hold.. Acidosis improved, carbon dioxide 18, anion gap 15, creatinine trending down to 2.75 now, potassium normal, CK trending down, lactic acid peaked at 12.8 overnight, now 7.6. Pertinent Imaging: Abdominal x-ray after catheter placement, expected location of the IVC, no acute process in the abdomen. Subjective: 05/08/2024: She was seen and examined in the ER, she feels fatigued but better today, more awake, denies abdominal pain, chest pain 05/09/2024: Patient seen and examined at bedside. She was responsive to commands, alert and oriented. Denies any abdominal or chest pain, feels fatigued. Pertinent positives and negatives as discussed above, a complete review of s ystems was performed and all other systems are negative. Vitals Signs Reviewed. Physical Exam: General: Ill-appearing, lethargic, obese Derm: warm, dry, intact Head: atraumatic, normocephalic, symmetric Eyes: EOMI, anicteric sclera Mouth: no lip lesion, mucus membranes moist Cardiovascular: S1 S2 reg, no murmur, rubs, or gallops Lungs: CTA bilateral, no rhonchi, no rales, no accessory muscle use Abdominal: soft, non-tender to palpataion, no appreciable organomegaly Extremities: livedo reticularis bilateral tight resolved, bilateral lower extremity venous chronic stasis discoloration, swelling: Tunneled catheter, CVC present in bilateral femoral veins, anasarca Neuro: Alert, Oriented, CNII-XII grossly intact Psych: appropriate affect Data Reviewed Today: Pertinent Labs: WBC 9.4, Hgb 7.8, platelet 194, sodium 133, potassium 3.7, BUN 38, creatinine 2.84, plasma lactic acid 4.5, AST 140, ALT 100, LDH 561 Pertinent imaging: N/A Assessment and Plan: #. Distributive shock, septic versus adrenal crisis, resolved #. Severe profound anion gap lactic acidosis in the patient on metformin #. Acute renal failure likely secondary to profound hypotension, ATN, on dialysis #Acute rhabdomyolysis, resolving #. Acute hyperkalemia, resolved #. Acute hypoglycemia In the patient with insulin dependent diabetes #. Acute acute toxic metabolic encephalopathy secondary to above #. Anasarca Hydrocortisone succinate decreased from 100 mg q8hr to q12hr Patient currently weaned off Levophed Vancomycin discontinued Continue with Zosyn Follow-up urine and blood cultures, no growth to date Strict I's and O's Cardiac monitoring Hold metformin Patient being downgraded from ICU to inpatient floor Nephrology following, hemo-dialysis scheduled for today, continue normal saline 75 cc an hour #. History of DVT Patient resumed on home Eliquis of 5 mg p.o. twice daily #. Acute on chronic macrocytic anemia -No signs of bleeding -Monitor CBC, hemoglobin less than 7 05/08, 1 unit of PRBC ordered Haptoglobin, reticulocyte count, LDH ordered to rule out hemolytic anemia LDH 561, reticulocyte count 0.3, haptoglobin pending Chronic: # Hypothyroidism: Continue Synthroid #. Hyperlipidemia holding statins #. GERD: Continue Protonix F: Normal saline at 75 cc/hour E: P electrolytes as needed N: Consistent carbohydrate diet DVT ppx: Eliquis 5 mg p.o. twice daily GI PPx Protonix 40 mg IV daily Code status: Full code Anticipated discharge place: pending clinical course Anticipated discharge time: pending clinical course I have seen and evaluated the patient today. Discussed with the resident and agree with the residents finding and plan as documented in the resident's note. Changes highlighted in blue font. Objective - Vital Signs Vital signs: Vital Signs Temp 97.9 F 05/09/24 00:00 Pulse 90 05/09/24 07:00 Resp 21 05/09/24 07:00 BP 131/71 05/09/24 07:00 Pulse Ox 98 05/09/24 07:00 FiO2 Intake & Output 05/08/24 05/09/24 05/09/24 18:59 06:59 18:59 Intake Total 1436.371 738.879 60 Output Total 580 165 20 Balance 856.371 573.879 40 Weight 82.554 kg 101.5 kg Intake: Intake, IV Titration 626.371 738.879 60 Amount Dextrose 5% in Water 1, 150 75 000 ml @ 100 mls/hr IV . [id number] PREM with Sodium Bicarb (1 Meq/ml) 150 ml Rx#:[id number] Lactated Ringers 500 ml @ 660 60 60 mls/hr IV .Q8H20M PREM Rx#:[id number] Norepinephrine 4 mg In 476.371 3.879 Sodium Chloride 0.9% 250 ml @ 0.03 MCG/KG/MIN 9. 436 mls/hr IV .Q24H PREM Rx#:[id number] Blood Product 310 Rc As-1 Unit 310 [id number] Hemodialysis 500 Output: Urine 80 165 20 Hemodialysis 500 Hemodialysis Net Amount 0 Other: Voiding Method Indwelling Catheter Indwelling Catheter # Bowel Movements 1 - Labs CBC & Chem 7: 05/09/24 04:11 05/09/24 04:11 Labs: Abnormal Lab Results - Last 24 Hours (Table) 05/08/24 05/08/24 05/08/24 Range/Units 09:23 10:07 11:48 WBC (3.8-10.6) k/uL RBC (3.80-5.40) m/uL Hgb (11.4-16.0) gm/dL Hct (34.0-46.0) % MCV (80.0-100.0) fL RDW (11.5-15.5) % Neutrophils # (1.3-7.7) k/uL Lymphocytes # (1.0-4.8) k/uL Sodium (137-145) mmol/L Potassium (3.5-5.1) mmol/L Chloride (98-107) mmol/L BUN (7-17) mg/dL Creatinine (0.52-1.04) mg/dL Glucose (74-99) mg/dL POC Glucose (mg/dL) 149 H (70-110) mg/dL Plasma Lactic Acid Amrik 5.8 H* (0.7-2.0) mmol/L Calcium (8.4-10.2) mg/dL TIBC (228-460) UG/DL % Saturation (12.00-45.00) Transferrin (204.0-354.0) mg/dL AST (14-36) U/L ALT (4-34) U/L Total Protein (6.3-8.2) g/dL Albumin (3.5-5.0) g/dL Complement C3 (80.0-207.0) mg/dL Crossmatch See Detail 05/08/24 05/08/24 05/08/24 Range/Units 11:55 14:06 17:20 WBC 11.7 H (3.8-10.6) k/uL RBC 2.26 L (3.80-5.40) m/uL Hgb 7.8 L (11.4-16.0) gm/dL Hct 23.0 L (34.0-46.0) % MCV 101.9 H (80.0-100.0) fL RDW 18.2 H (11.5-15.5) % Neutrophils # (1.3-7.7) k/uL Lymphocytes # (1.0-4.8) k/uL Sodium (137-145) mmol/L Potassium (3.5-5.1) mmol/L Chloride (98-107) mmol/L BUN (7-17) mg/dL Creatinine (0.52-1.04) mg/dL Glucose (74-99) mg/dL POC Glucose (mg/dL) (70-110) mg/dL Plasma Lactic Acid Amrik 5.9 H* (0.7-2.0) mmol/L Calcium (8.4-10.2) mg/dL TIBC 172 L (228-460) UG/DL % Saturation 59.30 H (12.00-45.00) Transferrin 123.0 L (204.0-354.0) mg/dL AST (14-36) U/L ALT (4-34) U/L Total Protein (6.3-8.2) g/dL Albumin (3.5-5.0) g/dL Complement C3 63.6 L (80.0-207.0) mg/dL Crossmatch 05/08/24 05/08/24 05/08/24 Range/Units 17:20 17:20 20:53 WBC (3.8-10.6) k/uL RBC (3.80-5.40) m/uL Hgb (11.4-16.0) gm/dL Hct (34.0-46.0) % MCV (80.0-100.0) fL RDW (11.5-15.5) % Neutrophils # (1.3-7.7) k/uL Lymphocytes # (1.0-4.8) k/uL Sodium 133 L (137-145) mmol/L Potassium 3.4 L 3.4 L (3.5-5.1) mmol/L Chloride 96 L (98-107) mmol/L BUN 34 H (7-17) mg/dL Creatinine 2.46 H (0.52-1.04) mg/dL Glucose 120 H (74-99) mg/dL POC Glucose (mg/dL) (70-110) mg/dL Plasma Lactic Acid Amrik 5.3 H* (0.7-2.0) mmol/L Calcium 6.9 L (8.4-10.2) mg/dL TIBC (228-460) UG/DL % Saturation (12.00-45.00) Transferrin (204.0-354.0) mg/dL AST (14-36) U/L ALT (4-34) U/L Total Protein (6.3-8.2) g/dL Albumin (3.5-5.0) g/dL Complement C3 (80.0-207.0) mg/dL Crossmatch 05/08/24 05/08/24 05/09/24 Range/Units 20:53 23:57 04:11 WBC (3.8-10.6) k/uL RBC 2.25 L (3.80-5.40) m/uL Hgb 7.8 L (11.4-16.0) gm/dL Hct 23.0 L (34.0-46.0) % MCV 101.9 H (80.0-100.0) fL RDW 18.2 H (11.5-15.5) % Neutrophils # 7.9 H (1.3-7.7) k/uL Lymphocytes # 0.7 L (1.0-4.8) k/uL Sodium (137-145) mmol/L Potassium (3.5-5.1) mmol/L Chloride (98-107) mmol/L BUN (7-17) mg/dL Creatinine (0.52-1.04) mg/dL Glucose (74-99) mg/dL POC Glucose (mg/dL) (70-110) mg/dL Plasma Lactic Acid Amrik 5.5 H* 5.2 H* (0.7-2.0) mmol/L Calcium (8.4-10.2) mg/dL TIBC (228-460) UG/DL % Saturation (12.00-45.00) Transferrin (204.0-354.0) mg/dL AST (14-36) U/L ALT (4-34) U/L Total Protein (6.3-8.2) g/dL Albumin (3.5-5.0) g/dL Complement C3 (80.0-207.0) mg/dL Crossmatch 05/09/24 05/09/24 05/09/24 Range/Units 04:11 04:11 06:22 WBC (3.8-10.6) k/uL RBC (3.80-5.40) m/uL Hgb (11.4-16.0) gm/dL Hct (34.0-46.0) % MCV (80.0-100.0) fL RDW (11.5-15.5) % Neutrophils # (1.3-7.7) k/uL Lymphocytes # (1.0-4.8) k/uL Sodium 133 L (137-145) mmol/L Potassium (3.5-5.1) mmol/L Chloride 96 L (98-107) mmol/L BUN 38 H (7-17) mg/dL Creatinine 2.84 H (0.52-1.04) mg/dL Glucose (74-99) mg/dL POC Glucose (mg/dL) 111 H (70-110) mg/dL Plasma Lactic Acid Amrik 4.8 H* (0.7-2.0) mmol/L Calcium 6.8 L (8.4-10.2) mg/dL TIBC (228-460) UG/DL % Saturation (12.00-45.00) Transferrin (204.0-354.0) mg/dL AST 140 H (14-36) U/L ALT 100 H (4-34) U/L Total Protein 4.2 L (6.3-8.2) g/dL Albumin 2.4 L (3.5-5.0) g/dL Complement C3 (80.0-207.0) mg/dL Crossmatch 05/09/24 Range/Units 07:05 WBC (3.8-10.6) k/uL RBC (3.80-5.40) m/uL Hgb (11.4-16.0) gm/dL Hct (34.0-46.0) % MCV (80.0-100.0) fL RDW (11.5-15.5) % Neutrophils # (1.3-7.7) k/uL Lymphocytes # (1.0-4.8) k/uL Sodium (137-145) mmol/L Potassium (3.5-5.1) mmol/L Chloride (98-107) mmol/L BUN (7-17) mg/dL Creatinine (0.52-1.04) mg/dL Glucose (74-99) mg/dL POC Glucose (mg/dL) (70-110) mg/dL Plasma Lactic Acid Amrik 4.7 H* (0.7-2.0) mmol/L Calcium (8.4-10.2) mg/dL TIBC (228-460) UG/DL % Saturation (12.00-45.00) Transferrin (204.0-354.0) mg/dL AST (14-36) U/L ALT (4-34) U/L Total Protein (6.3-8.2) g/dL Albumin (3.5-5.0) g/dL Complement C3 (80.0-207.0) mg/dL Crossmatch Microbiology - Last 24 Hours (Table) 05/07/24 12:00 Blood Culture - Preliminary Blood 05/06/24 15:23 Blood Culture - Preliminary Blood
[2024-05-09] MEDS: APIXABAN 5 MG TAB PO SCH (21:09)
[2024-05-09] MEDS: HYDROCORTISONE SUCCINATE 100 MG/2 ML VIAL IV SCH (21:09)
[2024-05-10 06:31] LABS: Glucose,Whole Blood 158 mg/dL (70-110)
[2024-05-10 06:58] LABS: Anisocytosis Slight; Basophils % (A) 0 %; Eosinophils % (A) 0 %; HCT 22.8 % (34.0-46.0); HGB 7.5 gm/dL (11.4-16.0); Lymphocytes # (A) 0.9 k/uL (1.0-4.8); Lymphocytes % (A) 8 %; MCHC 33.2 g/dL (31.0-37.0); MCV 102.7 fL (80.0-100.0); Macrocytosis Moderate; Mean Platelet Volume 8.7; Monocytes # (A) 0.7 k/uL (0-1.0); Monocytes % (A) 7 %; Neutrophils # (A) 8.8 k/uL (1.3-7.7); Neutrophils % (A) 83 %; Platelet Count 194 k/uL (150-450); RBC 2.22 m/uL (3.80-5.40); RDW 17.9 % (11.5-15.5); WBC 10.6 k/uL (3.8-10.6)
[2024-05-10 07:15] LABS: ALT 168 U/L (4-34); AST 201 U/L (14-36); African American GFR (CKD) 25 (>60 ml/min/1.73 sqM); Albumin 2.4 g/dL (3.5-5.0); Alkaline Phosphatase 76 U/L (38-126); Anion Gap 7 mmol/L; Blood Urea Nitrogen 26 mg/dL (7-17); Calcium 6.5 mg/dL (8.4-10.2); Carbon Dioxide 26 mmol/L (22-30); Chloride 98 mmol/L (98-107); Glucose 134 mg/dL (74-99); Non-African American GFR(CKD) 22 (>60 ml/min/1.73 sqM); Potassium 3.1 mmol/L (3.5-5.1); Sodium 131 mmol/L (137-145); Total Bilirubin 0.6 mg/dL (0.2-1.3)
[2024-05-10] MEDS: POTASSIUM CHLORIDE ER 20 MEQ TAB.ER PO STA ×2 (08:40→17:39)
--- NOTE | 2024-05-10 10:33 | P.PN ---
Subjective Patient is seen in follow-up for acute kidney injury. Started on hemodialysis May 07, 2024. On IV fluids. Urine output 10 to 15 cc an hour overnight. No improvement in mentation. Vital signs are stable. General: Resting in bed. HEENT: On nasal cannula. LUNGS: No audible rhonchi or wheezes. HEART: Rate and Rhythm are regular. ABDOMEN: No distention. EXTREMITITES: No edema. Chronic changes noted. Objective - Vital Signs Vital signs: Vital Signs Temp 98.0 F 05/10/24 04:00 Pulse 89 05/10/24 04:00 Resp 19 05/10/24 04:00 BP 139/73 05/10/24 04:00 Pulse Ox 96 05/10/24 04:00 FiO2 Intake & Output 05/09/24 05/10/24 05/10/24 18:59 06:59 18:59 Intake Total 495 75 Output Total 100 50 Balance 395 25 Weight 103.4 kg Intake: IV 435 75 Sodium Chloride 0.9% 1, 435 75 000 ml @ 75 mls/hr IV . [id number] PREM Rx#:[id number] Intake, IV Titration 60 Amount Lactated Ringers 500 ml @ 60 60 mls/hr IV .Q8H20M PREM Rx#:[id number] Output: Urine 100 50 Other: Voiding Method Indwelling Catheter Indwelling Catheter - Labs CBC & Chem 7: 05/10/24 06:09 05/10/24 06:09 Labs: Abnormal Lab Results - Last 24 Hours (Table) 05/09/24 05/09/24 05/10/24 Range/Units 10:30 10:30 06:09 RBC 2.22 L (3.80-5.40) m/uL Hgb 7.5 L (11.4-16.0) gm/dL Hct 22.8 L (34.0-46.0) % MCV 102.7 H (80.0-100.0) fL RDW 17.9 H (11.5-15.5) % Neutrophils # 8.8 H (1.3-7.7) k/uL Lymphocytes # 0.9 L (1.0-4.8) k/uL Retic Count 0.3 L (0.5-2.0) % Sodium (137-145) mmol/L Potassium (3.5-5.1) mmol/L BUN (7-17) mg/dL Creatinine (0.52-1.04) mg/dL Glucose (74-99) mg/dL POC Glucose (mg/dL) (70-110) mg/dL Calcium (8.4-10.2) mg/dL AST (14-36) U/L ALT (4-34) U/L Lactate Dehydrogenase 561 H (120-246) U/L Total Protein (6.3-8.2) g/dL Albumin (3.5-5.0) g/dL 05/10/24 05/10/24 Range/Units 06:09 06:29 RBC (3.80-5.40) m/uL Hgb (11.4-16.0) gm/dL Hct (34.0-46.0) % MCV (80.0-100.0) fL RDW (11.5-15.5) % Neutrophils # (1.3-7.7) k/uL Lymphocytes # (1.0-4.8) k/uL Retic Count (0.5-2.0) % Sodium 131 L (137-145) mmol/L Potassium 3.1 L (3.5-5.1) mmol/L BUN 26 H (7-17) mg/dL Creatinine 2.27 H (0.52-1.04) mg/dL Glucose 134 H (74-99) mg/dL POC Glucose (mg/dL) 158 H (70-110) mg/dL Calcium 6.5 L (8.4-10.2) mg/dL AST 201 H (14-36) U/L ALT 168 H (4-34) U/L Lactate Dehydrogenase (120-246) U/L Total Protein 4.0 L (6.3-8.2) g/dL Albumin 2.4 L (3.5-5.0) g/dL Microbiology - Last 24 Hours (Table) 05/07/24 12:00 Blood Culture - Preliminary Blood 05/06/24 15:23 Blood Culture - Preliminary Blood Assessment and Plan Plan: Assessment: 1. Acute kidney injury secondary to ATN secondary to shock. Creatinine 0.8 in September 2023 and elevated at 4.09 this admission. Oliguric. Started on hemodialysis May 07, 2024. No hydronephrosis noted on imaging. UA with 2+ protein and no blood. 2. Anion gap metabolic acidosis secondary to acute kidney injury, lactic acidosis and use of metformin. Improved with bicarb drip and dialysis. Urine ketones and serum acetone negative. 3. Acute blood loss anemia status post blood transfusion this admission. Platelet count normal. LDH high, haptoglobin not low. 4. Chronic kidney disease stage I with baseline creatinine near 0.8 from September 2023. She has underlying diabetic kidney disease with proteinuria. 5. Hyperkalemia secondary to acute kidney injury and acidosis. Resolved. Now potassium low. Being replaced. 6. Mild rhabdomyolysis. CK levels have been trending down. Plan: Hemodialysis tomorrow. Follow-up serologies. C3 noted to be low. Maintain normal saline. Monitor for renal recovery. Status post IV Lasix given May 08, 2024 with no significant change in urine output. Repeat phosphorus level.
[2024-05-10 10:59] LABS: Magnesium 1.9 mg/dL (1.6-2.3); Phosphorus 3.7 mg/dL (2.5-4.5)
[2024-05-10 11:31] LABS: Glucose,Whole Blood 147 mg/dL (70-110)
--- NOTE | 2024-05-10 11:53 | P.PN ---
Subjective Progress Note Date: 05/10/24 Principal diagnosis: Hypovolemic shock and acute kidney injury with severe lactic acidosis secondary to metformin ,associated with dehydration. On 05/07/2024, the patient is being seen in consultation in the emergency department for hypotension and severe lactic acidosis. The patient is known to have diabetes mellitus type 2, hypertension hyperlipidemia and previous history of a DVT for which she has been maintained on anticoagulation. She is also known to have a chronic right hemidiaphragmatic paralysis. The patient came into the hospital feeling generalized weakness and she also had diminished level of consciousness and she was having episodes of hypoglycemia. Notably, the patient has been receiving a combination of medication for diabetes which included Lantus insulin, Ozempic, metformin and short acting insulin for blood sugars controlled. The patient was started on D5 water and subsequent blood work showed severe metabolic derangements. The patient's serum bicarb was at 8. The patient's lactic acid level was initially at 8.5 and potassium level was at 6.1. She did have an anion gap of 21 at the time of the admission. At the same time, her calcium level was 8, 9 she had a rhabdomyolysis with a CPK of 2190, troponins were negative, procalcitonin level was at 0.8. UA showed +2 proteins, and acetone was negative. The white cell count was at 12.6 with a hemoglobin of 8.8 and a platelet count of 353. The patient received a total of 4.5 L of IV fluids in the emergency department and subsequently she was started on pressors and currently norepinephrine is running at 0.16 mcg/kg/min. Triple-lumen catheter was inserted. Subsequently, the patient was switched to a bicarb infusion at rate of 125 cc an hour. Most recent labs showed ongoing acidosis with a serum bicarb of 6, lactic acid remains at 9.1. There has been some modest improvement in the kidney function as initial creatinine was at 4.09 and the creatinine is down to 3.81. Potassium level this morning was at 6.7. I gave additional bicarb, D50 insulin and calcium to this patient and informed nephrology. She may need potentially dialysis as the patient may have severe lactic acidosis secondary to metformin. She is being monitored very closely. Blood gas was also done that showed a pH of 7.14 with a pCO2 of 24 and pO2 of 97 this was an FiO2 of 26%. Ultrasound of the kidneys shows no evidence of any hydronephrosis. CAT scan abdomen chest abdomen and pelvis shows right hemidiaphragmatic elevation, otherwise no other significant abnormalities. Despite all this abnormalities, the patient seems to be arousable and communicating. She seems to be appropriate. She is on 1 and half liters of oxygen by nasal cannula with a pulse ox of 95%. On 05/08/2024, the patient is being seen for a follow-up. She presented to us with severe metabolic and lactic acidosis. She also had an acute kidney injury. This is attributed to severe intravascular volume depletion and metformin induced lactic acidosis. The patient underwent hemodialysis yesterday. An emergent dialysis was performed as the patient was not producing much of urine output and the patient was also hyperkalemic along with severe metabolic acidosis. She also had severe lactic acidosis. On today's evaluation, the patient is feeling better. Hemodialysis was completed and a second session to be done today. Labs have improved compared to yesterday. Sodium is at 133, potassium is down to 4, bicarb is at 18, BUN is 40 with a creatinine of 2.7. Lactic acid level has been downtrending and it peaked at 12.8 and dropped down to 5.8. Awake and alert and communicating. Remains on a bicarb infusion which is running at 75 cc an hour. She is also on norepinephrine at 0.13 mcg/kg/min. She has a right forearm femoral hemodialysis catheter and left femoral triple- lumen catheter. Hemoglobin dropped down to 6.8 and the patient is going to receive a unit of packed RBC. She is on 2 L of oxygen by nasal cannula. Awake and alert and communicating. Patient was seen today on 05/09/2024, remains in the ICU, on 2 L nasal cannula, off norepinephrine for the last 12 hours, patient is on hemodialysis last hemodialysis was 05/07. Fluid is at 75 cc/h 0.9 normal saline, patient is lethargic but alert, able to answer questions, urine output remains marginal between 10 to 20 cc/h remains on Zosyn. Patient is steadily improving, her labs showed relatively normal CBC, electrolytes are normal bicarb is 27 BUN is 38 creatinine 2.84 procalcitonin level on admission was 0.83, blood cultures remain negative Seen today on 05/10/2024 remains in the ICU, however she is an overflow in the ICU. Patient is hemodynamically stable, temp is 98.4, blood pressure 133/72 and O2 sat is 96% on 2 L nasal cannula. IV fluid is running at 75 cc/h/0.9 normal saline patient remains on Zosyn and on Eliquis I have discontinued her Solu- Cortef which was started empirically upon admission when she came in with hypotension. Mentation is still slow but seems to be fairly appropriate. She knew where she was and she knew the name of the president. Labs from today showed relatively normal CBC except for hemoglobin of 7.5 low potassium of 3.1 BUN is 26 creatinine 2.27, Steadily improving, patient came in with a potassium of 4.09 Objective - Vital Signs Vital signs: Vital Signs Temp 98.4 F 05/10/24 10:00 Pulse 93 05/10/24 10:00 Resp 31 H 05/10/24 10:00 BP 133/72 05/10/24 10:00 Pulse Ox 96 05/10/24 10:00 FiO2 Intake & Output 05/09/24 05/10/24 05/10/24 18:59 06:59 18:59 Intake Total 495 75 Output Total 100 50 Balance 395 25 Weight 103.4 kg 103.4 kg Intake: IV 435 75 Sodium Chloride 0.9% 1, 435 75 000 ml @ 75 mls/hr IV . [id number] PREM Rx#:[id number] Intake, IV Titration 60 Amount Lactated Ringers 500 ml @ 60 60 mls/hr IV .Q8H20M PREM Rx#:[id number] Output: Urine 100 50 Other: Voiding Method Indwelling Catheter Indwelling Catheter Indwelling Catheter - Exam General: [Revealed 69-year-old female on 2 L nasal cannula, in no distress Derm: No rashes, skin is warm and dry Head: Atraumatic, normocephalic Eyes: EOMI, nonicteric, no neck masses no JVD Mouth: Moist mucous membranes Cardiovascular: Normal S1-S2, no S3 gallop Lungs: Clear bilaterally no rhonchi no wheezes Abdominal: Soft nontender no MAG no rebound no guarding Ext: Chronic venous stasis changes noted in the lower extremities otherwise unremarkable Neuro: Slow but seems to be appropriate and no gross focal neurologic deficit Psych: Normal mood, affect, and slow mental status - Labs CBC & Chem 7: 05/10/24 06:09 05/10/24 06:09 Labs: Abnormal Lab Results - Last 24 Hours (Table) 05/10/24 05/10/24 05/10/24 Range/Units 06:09 06:09 06:29 RBC 2.22 L (3.80-5.40) m/uL Hgb 7.5 L (11.4-16.0) gm/dL Hct 22.8 L (34.0-46.0) % MCV 102.7 H (80.0-100.0) fL RDW 17.9 H (11.5-15.5) % Neutrophils # 8.8 H (1.3-7.7) k/uL Lymphocytes # 0.9 L (1.0-4.8) k/uL Sodium 131 L (137-145) mmol/L Potassium 3.1 L (3.5-5.1) mmol/L BUN 26 H (7-17) mg/dL Creatinine 2.27 H (0.52-1.04) mg/dL Glucose 134 H (74-99) mg/dL POC Glucose (mg/dL) 158 H (70-110) mg/dL Calcium 6.5 L (8.4-10.2) mg/dL AST 201 H (14-36) U/L ALT 168 H (4-34) U/L Total Protein 4.0 L (6.3-8.2) g/dL Albumin 2.4 L (3.5-5.0) g/dL 05/10/24 Range/Units 11:30 RBC (3.80-5.40) m/uL Hgb (11.4-16.0) gm/dL Hct (34.0-46.0) % MCV (80.0-100.0) fL RDW (11.5-15.5) % Neutrophils # (1.3-7.7) k/uL Lymphocytes # (1.0-4.8) k/uL Sodium (137-145) mmol/L Potassium (3.5-5.1) mmol/L BUN (7-17) mg/dL Creatinine (0.52-1.04) mg/dL Glucose (74-99) mg/dL POC Glucose (mg/dL) 147 H (70-110) mg/dL Calcium (8.4-10.2) mg/dL AST (14-36) U/L ALT (4-34) U/L Total Protein (6.3-8.2) g/dL Albumin (3.5-5.0) g/dL Microbiology - Last 24 Hours (Table) 05/07/24 12:00 Blood Culture - Preliminary Blood 05/06/24 15:23 Blood Culture - Preliminary Blood Assessment and Plan Assessment: Impression:Acute Hypovolemic shock Acute kidney injury improving Acute lactic acidosis, related to dehydration and metformin patient improved with dialysis, Acute hyperkalemia secondary to acute kidney injury and metabolic acidosis, recovered Acute rhabdomyolysis, improved Acute on chronic anemia Type 2 diabetes, patient has been on Ozempic insulin Lantus and metformin which is presently off Chronic right hemidiaphragm paralysis Acute metabolic encephalopathy History of hypertension Dyslipidemia Previous history of DVT, on anticoagulation therapy on outpatient basis History of underlying COPD Hypothyroidism Anion gap metabolic acidosis resolved this is most likely to the combination of dehydration and metformin Recommendation: Continue present supportive care measures Continue IV fluids Nephrology is following her renal status. Continue Eliquis 2.5 mg twice daily Continue empiric antibiotics including Zosyn Continue to monitor electrolytes and daily CBC Transfer patient to a monitored bed, once a bed is available Will continue to follow Time with Patient: Less than 30
[2024-05-10] MEDS: HYDROcodone/APAP 5-325MG 1 EACH TAB PO PRN (13:24)
--- NOTE | 2024-05-10 15:31 | P.PN ---
Subjective Progress Note Date: 05/10/24 Hospital Course: A 69-year-old female with past medical history of difficult to control diabetes, history of DVT on Eliquis, HLD, HTN, osteoarthritis, hypothyroidism, history of hypoxic respiratory failure due to pneumonia requiring supplemental oxygen use, history of MSSA sepsis 2017, MRSA bacteremia 2016, recent UTI treated with outpatient antibiotics, who presented to the ER complaining of generalized weakness, low blood sugar, nausea, vomiting. Patient was throwing up for several days, multiple times a day, stopped on 05/05, no associated abdominal pain, bowel habit changes, fevers, chills. Patient states that she went down on her Lantus while throwing up (she is usually on 24 in the AM and 30 p.m., was taking 18 and 28 accordingly)., She is also on metformin 1000 twice daily, Ozempic 1 mg, She did have recent UTI that was treated as outpatient with oral antibiotics, she is not sure what type of antibiotic and for how long she was on it. She noted urinary frequency. ED course: Patient's blood pressure was 102/44 on admission, heart rate in 80s, afebrile initially. EKG showed QTc of 434, junctional rhythm. Chest x-ray with no acute process. CT of the abdomen and pelvis showed chronic elevation of the right hemidiaphragm and no source of infection. Kidney bladder ultrasound showed anechoic bladder, no hydronephrosis, no nephrolithiasis and masses. Lab work significant for leukocytosis 12.6, anemia hemoglobin 8.8, macrocytosis, sodium 136, potassium 5.6, bicarb 9, BUN 68, creatinine 4.09, lactate 8.3, phosphorus 5.8, ALT elevated 124 AST 119, CK 2190, trended down to 2020. Negative troponin, CRP negative, UA positive for proteinuria and hematuria, vi ral panel negative. Sepsis protocol was initiated, blood in the urine cultures obtained, fluid bolus given, received hyperkalemia cocktail with calcium gluconate, insulin, Lokelma. Patient has been having profound hypotension that did not respond to fluid bolus and was started on Levophed, femoral central line placed in the ER. Patient was started on broad-spectrum antibiotics with Zosyn, vancomycin, started on bicarb drip, D10 drip, Solu-Medrol. Patient had mild improvement of hyperkalemia after hyperkalemia cocktail, potassium again elevated 05/07 in the morning at 6.7, another hyperkalemia protocol given with IV insulin, calcium gluconate, bicarb pushes x 2. Despite continuous IV hydration, bicarb drip, patient continued to be profoundly acidotic with carbon dioxide trending down from 9-6, ABG showed pH of 7.14, lactic acid up to 9.7. Nephrology consulted. IR consulted for tunneled catheter placement, plan for HD 05/08 ICU consulted. Awaiting for an ICU bed 05/08 hemoglobin noted at 6.8, 1 unit of PRBC ordered, Eliquis was previously decreased to 2.5 twice daily, now on hold.. Acidosis improved, carbon dioxide 18, anion gap 15, creatinine trending down to 2.75 now, potassium normal, CK trending down, lactic acid peaked at 12.8 overnight, now 7.6. Pertinent Imaging: Abdominal x-ray after catheter placement, expected location of the IVC, no acute process in the abdomen. Subjective: 05/08/2024: She was seen and examined in the ER, she feels fatigued but better today, more awake, denies abdominal pain, chest pain 05/09/2024: Patient seen and examined at bedside. She was responsive to commands, alert and oriented. Denies any abdominal or chest pain, feels fatigued. 05/10/2024: Patient seen evaluated bedside. Patient awake and oriented and re sponding to commands. States that she has pain all over and would like to go back on some type of pain regiment. Patient states she has been feeling anxious especially prior to getting hemodialysis. Pertinent positives and negatives as discussed above, a complete review of systems was performed and all other systems are negative. Vitals Signs Reviewed. Physical Exam: General: Ill-appearing, lethargic, obese Derm: warm, dry, intact Head: atraumatic, normocephalic, symmetric Eyes: EOMI, anicteric sclera Mouth: no lip lesion, mucus membranes moist Cardiovascular: S1 S2 reg, no murmur, rubs, or gallops Lungs: CTA bilateral, no rhonchi, no rales, no accessory muscle use Abdominal: soft, non-tender to palpataion, no appreciable organomegaly Extremities: livedo reticularis bilateral tight resolved, bilateral lower extremity venous chronic stasis discoloration, swelling: Tunneled catheter, CVC present in bilateral femoral veins, anasarca Neuro: Alert, Oriented, CNII-XII grossly intact Psych: appropriate affect Data Reviewed Today: Pertinent Labs: WBC 10.6, Hgb 7.5, platelet 194, sodium 131, potassium 3.1, BUN 26, creatinine 2.27, glucose 134, AST 21, ALT 168, total protein 4.0, LDH 561, reticulocyte count 0.3, haptoglobin 140 Pertinent imaging: N/A Assessment and Plan: A 69-year-old female with past medical history of uncontrolled diabetes, history of DVT on Eliquis, HLD, HTN, osteoarthritis, hypothyroidism, history of hypoxic respiratory failure due to pneumonia requiring supplemental oxygen use, history of MSSA sepsis 2017, MRSA bacteremia 2017, recent UTI treated with outpatient antibiotics, who presented to the ER complaining of generalized weakness, low blood sugar, nausea, vomiting. #. Distributive shock, septic versus adrenal crisis, resolved #. Severe profound anion gap lactic acidosis in the patient on metformin #. Acute renal failure likely secondary to profound hypotension, ATN, on dialysis #. Acute rhabdomyolysis, resolving #. Acute hyperkalemia, resolved #. Acute hypoglycemia In the patient with insulin dependent diabetes #. Acute acute toxic metabolic encephalopathy secondary to above #. Anasarca Hydrocortisone discontinued by ICU Patient currently weaned off Levophed Vancomycin discontinued Zosyn discontinued Follow-up urine and blood cultures, no growth to date Strict I's and O's Cardiac monitoring Hold metformin Patient being downgraded from ICU to inpatient floor Placed on [place] [id number] PO q6hr PRN Status post IV Lasix on 05/08/2024 with no significant change in urine output Nephrology following, hemo-dialysis for tomorrow, continue normal saline 75 cc an hour Follow-up BMP is to monitor kidney function #. History of DVT Patient resumed on home Eliquis of 5 mg p.o. twice daily #. Acute on chronic macrocytic anemia, status post 1 unit PRBC #Anemia of chronic disease - No signs of bleeding LDH 561, reticulocyte count 0.3, haptoglobin 140, unlikely hemolytic anemia #. Anxiety Seroquel 12.5 mg p.o. once #. Hypokalemia Potassium replaced with potassium chloride 40 mEq PO once Chronic: # Hypothyroidism: Continue Synthroid #. Hyperlipidemia holding statins #. GERD: Continue Protonix F: Normal saline at 75 cc/hour E: P electrolytes as needed N: Consistent carbohydrate diet DVT ppx: Eliquis 5 mg p.o. twice daily GI PPx Protonix 40 mg IV daily Code status: Full code Anticipated discharge place: pending clinical course Anticipated discharge time: pending clinical course Patient is critically ill, in medical ICU. Prognosis guarded. I have seen and evaluated the patient today. Discussed with the resident and agree with the residents finding and plan as documented in the resident's note. Changes highlighted in blue font. Objective - Vital Signs Vital signs: Vital Signs Temp 98.0 F 05/10/24 04:00 Pulse 89 05/10/24 04:00 Resp 19 05/10/24 04:00 BP 139/73 05/10/24 04:00 Pulse Ox 96 05/10/24 04:00 FiO2 Intake & Output 05/09/24 05/10/24 05/10/24 18:59 06:59 18:59 Intake Total 495 75 Output Total 100 50 Balance 395 25 Weight 103.4 kg Intake: IV 435 75 Sodium Chloride 0.9% 1, 435 75 000 ml @ 75 mls/hr IV . [id number] PREM Rx#:[id number] Intake, IV Titration 60 Amount Lactated Ringers 500 ml @ 60 60 mls/hr IV .Q8H20M PREM Rx#:[id number] Output: Urine 100 50 Other: Voiding Method Indwelling Catheter Indwelling Catheter - Labs CBC & Chem 7: 05/10/24 06:09 05/10/24 06:09 Labs: Abnormal Lab Results - Last 24 Hours (Table) 05/09/24 05/09/24 05/09/24 Range/Units 09:55 10:30 10:30 RBC (3.80-5.40) m/uL Hgb (11.4-16.0) gm/dL Hct (34.0-46.0) % MCV (80.0-100.0) fL RDW (11.5-15.5) % Neutrophils # (1.3-7.7) k/uL Lymphocytes # (1.0-4.8) k/uL Retic Count 0.3 L (0.5-2.0) % Sodium (137-145) mmol/L Potassium (3.5-5.1) mmol/L BUN (7-17) mg/dL Creatinine (0.52-1.04) mg/dL Glucose (74-99) mg/dL POC Glucose (mg/dL) (70-110) mg/dL Plasma Lactic Acid Amrik 4.5 H* (0.7-2.0) mmol/L Calcium (8.4-10.2) mg/dL AST (14-36) U/L ALT (4-34) U/L Lactate Dehydrogenase 561 H (120-246) U/L Total Protein (6.3-8.2) g/dL Albumin (3.5-5.0) g/dL 05/10/24 05/10/24 05/10/24 Range/Units 06:09 06:09 06:29 RBC 2.22 L (3.80-5.40) m/uL Hgb 7.5 L (11.4-16.0) gm/dL Hct 22.8 L (34.0-46.0) % MCV 102.7 H (80.0-100.0) fL RDW 17.9 H (11.5-15.5) % Neutrophils # 8.8 H (1.3-7.7) k/uL Lymphocytes # 0.9 L (1.0-4.8) k/uL Retic Count (0.5-2.0) % Sodium 131 L (137-145) mmol/L Potassium 3.1 L (3.5-5.1) mmol/L BUN 26 H (7-17) mg/dL Creatinine 2.27 H (0.52-1.04) mg/dL Glucose 134 H (74-99) mg/dL POC Glucose (mg/dL) 158 H (70-110) mg/dL Plasma Lactic Acid Amrik (0.7-2.0) mmol/L Calcium 6.5 L (8.4-10.2) mg/dL AST 201 H (14-36) U/L ALT 168 H (4-34) U/L Lactate Dehydrogenase (120-246) U/L Total Protein 4.0 L (6.3-8.2) g/dL Albumin 2.4 L (3.5-5.0) g/dL Microbiology - Last 24 Hours (Table) 05/07/24 12:00 Blood Culture - Preliminary Blood 05/06/24 15:23 Blood Culture - Preliminary Blood
[2024-05-10 16:54] LABS: Glucose,Whole Blood 112 mg/dL (70-110)
[2024-05-10] MEDS: QUEtiapine 25 MG TAB PO STA (17:28)
[2024-05-10 21:44] LABS: Glucose,Whole Blood 100 mg/dL (70-110)
[2024-05-10] MEDS: POTASSIUM CHLORIDE ER 20 MEQ TAB.ER PO ONE (23:06)
[2024-05-11 05:58] LABS: Glucose,Whole Blood 107 mg/dL (70-110)
[2024-05-11 07:32] LABS: ALT 329 U/L (4-34); AST 338 U/L (14-36); African American GFR (CKD) 21 (>60 ml/min/1.73 sqM); Albumin 2.4 g/dL (3.5-5.0); Alkaline Phosphatase 96 U/L (38-126); Anion Gap 7 mmol/L; Blood Urea Nitrogen 35 mg/dL (7-17); Carbon Dioxide 23 mmol/L (22-30); Chloride 100 mmol/L (98-107); Glucose 87 mg/dL (74-99); Magnesium 1.9 mg/dL (1.6-2.3); Non-African American GFR(CKD) 19 (>60 ml/min/1.73 sqM); Sodium 130 mmol/L (137-145); Total Bilirubin 0.7 mg/dL (0.2-1.3); Total Protein 4.1 g/dL (6.3-8.2)
[2024-05-11 07:40] LABS: Calcium 6.4 mg/dL (8.4-10.2); Creatine Kinase 1024 U/L (30-135)
[2024-05-11 08:00] LABS: Anisocytosis Slight; HCT 24.6 % (34.0-46.0); Hypochromasia Slight; MCH 34.3 pg (25.0-35.0); MCHC 32.5 g/dL (31.0-37.0); MCV 105.5 fL (80.0-100.0); Macrocytosis Marked; Platelet Count 186 k/uL (150-450); RBC 2.33 m/uL (3.80-5.40); RDW 17.6 % (11.5-15.5); WBC 11.2 k/uL (3.8-10.6)
[2024-05-11 08:38] LABS: Band Neutrophils % 3 %; Lymphocytes # (M) 1.34 k/uL (1.0-4.8); Monocytes # (M) 0.67 k/uL (0-1.0); Neutrophils % (M) 79 %; Nucleated Red Blood Cells 0 /100 WBC (0-0); Ovalocytes Present; Total Cells Counted 100
--- NOTE | 2024-05-11 10:37 | P.PN ---
Subjective Patient is seen in follow-up for acute kidney injury. Started on hemodialysis May 07, 2024. On IV fluids. Urine output about 50 cc overnight. Mentation better. Son present at bedside. Vital signs are stable. General: Resting in bed. HEENT: On nasal cannula. LUNGS: No audible rhonchi or wheezes. HEART: Rate and Rhythm are regular. ABDOMEN: No distention. EXTREMITITES: No edema. Chronic changes noted. Objective - Vital Signs Vital signs: Vital Signs Temp 98.4 F 05/11/24 08:36 Pulse 91 05/11/24 08:36 Resp 14 05/11/24 08:36 BP 129/65 05/11/24 08:36 Pulse Ox 97 05/11/24 08:36 FiO2 Intake & Output 05/10/24 05/11/24 05/11/24 18:59 06:59 18:59 Intake Total 850 Output Total 150 40 Balance 700 -40 Weight 103.4 kg Intake: IV 750 Sodium Chloride 0.9% 1, 750 000 ml @ 75 mls/hr IV . [id number] PREM Rx#:[id number] Intake, IV Titration 100 Amount Piperacillin-Tazobactam 3 100 .375 gm In Sodium Chloride 0.9% 100 ml @ 25 mls/hr IVPB Q12H PREM Rx# :[id number] Output: Urine 150 40 Uretheral (Enriquez) 40 Other: Voiding Method Indwelling Catheter Indwelling Catheter # Bowel Movements 1 - Labs CBC & Chem 7: 05/11/24 06:06 05/11/24 06:43 Labs: Abnormal Lab Results - Last 24 Hours (Table) 05/10/24 05/10/24 05/10/24 Range/Units 11:30 16:45 16:53 WBC (3.8-10.6) k/uL RBC (3.80-5.40) m/uL Hgb (11.4-16.0) gm/dL Hct (34.0-46.0) % MCV (80.0-100.0) fL RDW (11.5-15.5) % Neutrophils # (Manual) (1.3-7.7) k/uL Macrocytosis Sodium (137-145) mmol/L Potassium 3.1 L (3.5-5.1) mmol/L BUN (7-17) mg/dL Creatinine (0.52-1.04) mg/dL POC Glucose (mg/dL) 147 H 112 H (70-110) mg/dL Calcium (8.4-10.2) mg/dL AST (14-36) U/L ALT (4-34) U/L Creatine Kinase (30-135) U/L Total Protein (6.3-8.2) g/dL Albumin (3.5-5.0) g/dL 05/10/24 05/11/24 05/11/24 Range/Units 22:05 06:06 06:43 WBC 11.2 H (3.8-10.6) k/uL RBC 2.33 L (3.80-5.40) m/uL Hgb 8.0 L (11.4-16.0) gm/dL Hct 24.6 L (34.0-46.0) % MCV 105.5 H (80.0-100.0) fL RDW 17.6 H (11.5-15.5) % Neutrophils # (Manual) 9.10 H (1.3-7.7) k/uL Macrocytosis Marked A Sodium 130 L (137-145) mmol/L Potassium 3.3 L (3.5-5.1) mmol/L BUN 35 H (7-17) mg/dL Creatinine 2.58 H (0.52-1.04) mg/dL POC Glucose (mg/dL) (70-110) mg/dL Calcium 6.4 L* (8.4-10.2) mg/dL AST 338 H (14-36) U/L ALT 329 H (4-34) U/L Creatine Kinase 1024 H* (30-135) U/L Total Protein 4.1 L (6.3-8.2) g/dL Albumin 2.4 L (3.5-5.0) g/dL Microbiology - Last 24 Hours (Table) 05/07/24 12:00 Blood Culture - Preliminary Blood Assessment and Plan Plan: Assessment: 1. Acute kidney injury secondary to ATN secondary to shock. Creatinine 0.8 in September 2023 and elevated at 4.09 this admission. Oliguric. Started on hemodialysis May 07, 2024. No hydronephrosis noted on imaging. UA with 2+ protein and no blood. 2. Anion gap metabolic acidosis secondary to acute kidney injury, lactic acidosis and use of metformin. Improved with bicarb drip and dialysis. Urine ketones and serum acetone negative. 3. Acute blood loss anemia status post blood transfusion this admission. Platelet count normal. LDH high, haptoglobin not low. 4. Chronic kidney disease stage I with baseline creatinine near 0.8 from September 2023. She has underlying diabetic kidney disease with proteinuria. 5. Hyperkalemia secondary to acute kidney injury and acidosis. Resolved. Then potassium low and was replaced. 6. Mild rhabdomyolysis. CK levels have been trending down. 7. Hypocalcemia secondary to acute kidney injury. Corrected calcium in the normal range. Calcium gluconate has been ordered by the primary team. Plan: Hemodialysis today. Serologies negative except for low C3. I will repeat the C3 level. Maintain normal saline. Monitor for renal recovery. Status post IV Lasix given May 08, 2024 with no significant change in urine output. Phosphorus level 3.7 dated May 10, 2024. Discussed kidney biopsy for definitive diagnosis if no improvement in renal function in the next 2 to 3 days and patient able to tolerate biopsy. Patient has oozing from the dialysis catheter site. Vascular surgery will be notified. I will also give a dose of IV DDAVP. Check iron studies. Check iron studies.
[2024-05-11] MEDS: DESMOPRESSIN ACETATE 22 MCG in SODIUM CHLORIDE 0.9% 50 ML IVPB ONE (11:28)
[2024-05-11 11:54] LABS: Glucose,Whole Blood 113 mg/dL (70-110)
[2024-05-11] MEDS: CALCIUM GLUCONATE IN NACL 2 GM in SALINE 1 100ML.BAG IVPB ONE (12:24)
[2024-05-11] MEDS: PIPERACILLIN-TAZOBACTAM 3.375 GM in SODIUM CHLORIDE 0.9% 100 ML IVPB SCH (13:54)
--- NOTE | 2024-05-11 15:53 | P.PN ---
Subjective Progress Note Date: 05/11/24 Hospital Course: A 69-year-old female with past medical history of difficult to control diabetes, history of DVT on Eliquis, HLD, HTN, osteoarthritis, hypothyroidism, history of hypoxic respiratory failure due to pneumonia requiring supplemental oxygen use, history of MSSA sepsis 2017, MRSA bacteremia 2016, recent UTI treated with outpatient antibiotics, who presented to the ER complaining of generalized weakness, low blood sugar, nausea, vomiting. Patient was throwing up for several days, multiple times a day, stopped on 05/05, no associated abdominal pain, bowel habit changes, fevers, chills. Patient states that she went down on her Lantus while throwing up (she is usually on 24 in the AM and 30 p.m., was taking 18 and 28 accordingly)., She is also on metformin 1000 twice daily, Ozempic 1 mg, She did have recent UTI that was treated as outpatient with oral antibiotics, she is not sure what type of antibiotic and for how long she was on it. She noted urinary frequency. ED course: Patient's blood pressure was 102/44 on admission, heart rate in 80s, afebrile initially. EKG showed QTc of 434, junctional rhythm. Chest x-ray with no acute process. CT of the abdomen and pelvis showed chronic elevation of the right hemidiaphragm and no source of infection. Kidney bladder ultrasound showed anechoic bladder, no hydronephrosis, no nephrolithiasis and masses. Lab work significant for leukocytosis 12.6, anemia hemoglobin 8.8, macrocytosis, sodium 136, potassium 5.6, bicarb 9, BUN 68, creatinine 4.09, lactate 8.3, phosphorus 5.8, ALT elevated 124 AST 119, CK 2190, trended down to 2020. Negative troponin, CRP negative, UA positive for proteinuria and hematuria, viral panel negative. Sepsis protocol was initiated, blood in the urine cultures obtained, fluid bolus given, received hyperkalemia cocktail with calcium gluconate, insulin, Lokelma. Patient has been having profound hypotension that did not respond to fluid bolus and was started on Levophed, femoral central line placed in the ER. Patient was started on broad-spectrum antibiotics with Zosyn, vancomycin, started on bicarb drip, D10 drip, Solu-Medrol. Patient had mild improvement of hyperkalemia after hyperkalemia cocktail, potassium again elevated 05/07 in the morning at 6.7, another hyperkalemia protocol given with IV insulin, calcium gluconate, bicarb pushes x 2. Despite continuous IV hydration, bicarb drip, patient continued to be profoundly acidotic with carbon dioxide trending down from 9-6, ABG showed pH of 7.14, lactic acid up to 9.7. Nephrology consulted. IR consulted for tunneled catheter placement, plan for HD 05/08 ICU consulted. Awaiting for an ICU bed 05/08 hemoglobin noted at 6.8, 1 unit of PRBC ordered, Eliquis was previously decreased to 2.5 twice daily, now on hold.. Acidosis improved, carbon dioxide 18, anion gap 15, creatinine trending down to 2.75 now, potassium normal, CK trending down, lactic acid peaked at 12.8 overnight, now 7.6. Pertinent Imaging: Abdominal x-ray after catheter placement, expected location of the IVC, no acute process in the abdomen. Subjective: 05/08/2024: She was seen and examined in the ER, she feels fatigued but better today, more awake, denies abdominal pain, chest pain 05/09/2024: Patient seen and examined at bedside. She was responsive to commands, alert and oriented. Denies any abdominal or chest pain, feels fatigued. 05/10/2024: Patient seen evaluated bedside. Patient awake and oriented and responding to commands. States that she has pain all over and would like to go back on some type of pain regiment. Patient states she has been feeling anxious especially prior to getting hemodialysis. 05/11/2024: Patient seen evaluated bedside. Patient awake and oriented responding to commands. Reports difficulty voiding. Hemodialysis scheduled for today. Pertinent positives and negatives as discussed above, a complete review of systems was performed and all other systems are negative. Vitals Signs Reviewed. Physical Exam: General: Ill-appearing, lethargic, obese Derm: warm, dry, intact Head: atraumatic, normocephalic, symmetric Eyes: EOMI, anicteric sclera Mouth: no lip lesion, mucus membranes moist Cardiovascular: S1 S2 reg, no murmur, rubs, or gallops Lungs: CTA bilateral, no rhonchi, no rales, no accessory muscle use Abdominal: soft, non-tender to palpataion, no appreciable organomegaly Extremities: livedo reticularis bilateral tight resolved, bilateral lower extremity venous chronic stasis discoloration, swelling: Tunneled catheter, CVC present in bilateral femoral veins, anasarca Neuro: Alert, Oriented, CNII-XII grossly intact Psych: appropriate affect Data Reviewed Today: Pertinent Labs: WBC 11.2, neutrophil 9.1, band neutrophils 3%, Hgb 8.0, platelet 186, sodium 130, BUN 35, creatinine 2.27 => 2.58, calcium 6.4, creatine kinase 1024, AST 338, ALT 329, alk phos 96, total bili 0.7 Pertinent imaging: Gallbladder ultrasound pending Assessment and Plan: Patient is a 69-year-old female with a past medical history of uncontrolled insulin-dependent diabetes, DVT on Eliquis, hyperlipidemia, hypertension, history of ESBL infection (11/05/23), history of MRSA infection (2016) admitted for acute renal failure likely secondary to hypotension, ATN. #. Acute renal failure likely secondary to profound hypotension, possible ATN, on dialysis #. Acute metabolic encephalopathy secondary to above #. Anasarca #. Acute on chronic macrocytic anemia, status post 1 unit PRBC #Anemia of chronic disease Follow-up urine and blood cultures, no growth to date Strict I's and O's Cardiac monitoring Placed on [place] 5325 PO q6hr PRN Status post IV Lasix on 05/08/2024 with no significant change in urine output Nephrology following, note read. Hemo-dialysis today. If no improvement consider kidney biopsy. IV desmopressin acetate 22 mcg IVPB once by nephrology Follow-up BMP to monitor kidney function -Repeat CBC tomorrow #. Leukocytosis with neutrophilic bandemia #. Transaminitis WBC 11.2, neutrophil 9.1, band neutrophils 3% AST 338, ALT 329 Right upper quadrant ultrasound ordered Placed back on Zosyn 3.375 g IVPB q12hr #. Acute hypocalcemia Calcium 6.4 Calcium gluconate 2 g IVPB once #. Acute rhabdomyolysis, resolving Creatine kinase 1367 => 1024 Continue with normal saline at 75 cc/hr #. History of DVT Continue with home Eliquis of 5 mg PO twice daily #. Anxiety Seroquel 12.5 mg p.o. once Chronic: #. insulin-dependent type 2 diabetes mellitus Hold metformin, Accu-Cheks, monitor for hypoglycemia # Hypothyroidism: Continue Synthroid #. Hyperlipidemia holding statins #. GERD: Continue Protonix Resolved: Hypokalemia Acute hyperkalemia Distributive shock, septic versus adrenal crisis Anion gap lactic acidosis inpatient patient on metformin: Continue to hold metformin Acute hypoglycemia in a patient with uncontrolled insulin-dependent diabetes F: Normal saline at 75 cc/hour E: P electrolytes as needed N: Consistent carbohydrate diet DVT ppx: Eliquis 5 mg PO BID GI PPx Protonix 40 mg IV daily Code status: Full code Anticipated discharge place: pending clinical course Anticipated discharge time: pending clinical course I have seen and evaluated the patient today. Discussed with the resident and agree with the residents finding and plan as documented in the resident's note. Changes highlighted in blue font. Objective - Vital Signs Vital signs: Vital Signs Temp 97.9 F 05/10/24 20:00 Pulse 89 05/11/24 04:16 Resp 18 05/11/24 04:16 BP 131/77 05/11/24 04:16 Pulse Ox 98 05/11/24 04:16 FiO2 Intake & Output 05/10/24 05/11/24 05/11/24 18:59 06:59 18:59 Intake Total 850 Output Total 150 40 Balance 700 -40 Weight 103.4 kg Intake: IV 750 Sodium Chloride 0.9% 1, 750 000 ml @ 75 mls/hr IV . [id number] PREM Rx#:[id number] Intake, IV Titration 100 Amount Piperacillin-Tazobactam 3 100 .375 gm In Sodium Chloride 0.9% 100 ml @ 25 mls/hr IVPB Q12H PREM Rx# :[id number] Output: Urine 150 40 Uretheral (Enriquez) 40 Other: Voiding Method Indwelling Catheter Indwelling Catheter # Bowel Movements 1 - Labs CBC & Chem 7: 05/11/24 06:06 05/11/24 06:43 Labs: Abnormal Lab Results - Last 24 Hours (Table) 05/10/24 05/10/24 05/10/24 Range/Units 11:30 16:45 16:53 WBC (3.8-10.6) k/uL RBC (3.80-5.40) m/uL Hgb (11.4-16.0) gm/dL Hct (34.0-46.0) % MCV (80.0-100.0) fL RDW (11.5-15.5) % Macrocytosis Sodium (137-145) mmol/L Potassium 3.1 L (3.5-5.1) mmol/L BUN (7-17) mg/dL Creatinine (0.52-1.04) mg/dL POC Glucose (mg/dL) 147 H 112 H (70-110) mg/dL Calcium (8.4-10.2) mg/dL AST (14-36) U/L ALT (4-34) U/L Creatine Kinase (30-135) U/L Total Protein (6.3-8.2) g/dL Albumin (3.5-5.0) g/dL 05/10/24 05/11/24 05/11/24 Range/Units 22:05 06:06 06:43 WBC 11.2 H (3.8-10.6) k/uL RBC 2.33 L (3.80-5.40) m/uL Hgb 8.0 L (11.4-16.0) gm/dL Hct 24.6 L (34.0-46.0) % MCV 105.5 H (80.0-100.0) fL RDW 17.6 H (11.5-15.5) % Macrocytosis Marked A Sodium 130 L (137-145) mmol/L Potassium 3.3 L (3.5-5.1) mmol/L BUN 35 H (7-17) mg/dL Creatinine 2.58 H (0.52-1.04) mg/dL POC Glucose (mg/dL) (70-110) mg/dL Calcium 6.4 L* (8.4-10.2) mg/dL AST 338 H (14-36) U/L ALT 329 H (4-34) U/L Creatine Kinase 1024 H* (30-135) U/L Total Protein 4.1 L (6.3-8.2) g/dL Albumin 2.4 L (3.5-5.0) g/dL Microbiology - Last 24 Hours (Table) 05/07/24 12:00 Blood Culture - Preliminary Blood
--- NOTE | 2024-05-11 16:09 | P.PN ---
Subjective Progress Note Date: 05/11/24 On 05/07/2024, the patient is being seen in consultation in the emergency department for hypotension and severe lactic acidosis. The patient is known to have diabetes mellitus type 2, hypertension hyperlipidemia and previous history of a DVT for which she has been maintained on anticoagulation. She is also known to have a chronic right hemidiaphragmatic paralysis. The patient came into the hospital feeling generalized weakness and she also had diminished level of consciousness and she was having episodes of hypoglycemia. Notably, the patient has been receiving a combination of medication for diabetes which included Lantus insulin, Ozempic, metformin and short acting insulin for blood sugars controlled. The patient was started on D5 water and subsequent blood work showed severe metabolic derangements. The patient's serum bicarb was at 8. The patient's lactic acid level was initially at 8.5 and potassium level was at 6.1. She did have an anion gap of 21 at the time of the admission. At the same time, her calcium level was 8, 9 she had a rhabdomyolysis with a CPK of 2190, troponins were negative, procalcitonin level was at 0.8. UA showed +2 proteins, and acetone was negative. The white cell count was at 12.6 with a hemoglobin of 8.8 and a platelet count of 353. The patient received a total of 4.5 L of IV fluids in the emergency department and subsequently she was started on pressors and currently norepinephrine is running at 0.16 mcg/kg/min. Triple-lumen catheter was inserted. Subsequently, the patient was switched to a bicarb infusion at rate of 125 cc an hour. Most recent labs showed ongoing acidosis with a serum bicarb of 6, lactic acid remains at 9.1. There has been some modest improvement in the kidney function as initial creatinine was at 4.09 and the creatinine is down to 3.81. Potassium level this morning was at 6.7. I gave additional bicarb, D50 insulin and calcium to this patient and informed nephrology. She may need potentially dialysis as the patient may have severe lactic acidosis secondary to metformin. She is being monitored very closely. Blood gas was also done that showed a pH of 7.14 with a pCO2 of 24 and pO2 of 97 this was an FiO2 of 26%. Ultrasound of the kidneys shows no evidence of any hydronephrosis. CAT scan abdomen chest abdomen and pelvis shows right hemidiaphragmatic elevation, otherwise no other significant abnormalities. Despite all this abnormalities, the patient seems to be arousable and communicating. She seems to be appropriate. She is on 1 and half liters of oxygen by nasal cannula with a pulse ox of 95%. On 05/08/2024, the patient is being seen for a follow-up. She presented to us with severe metabolic and lactic acidosis. She also had an acute kidney injury. This is attributed to severe intravascular volume depletion and metformin induced lactic acidosis. The patient underwent hemodialysis yesterday. An emergent dialysis was performed as the patient was not producing much of urine output and the patient was also hyperkalemic along with severe metabolic acidosis. She also had severe lactic acidosis. On today's evaluation, the patient is feeling better. Hemodialysis was completed and a second session to be done today. Labs have improved compared to yesterday. Sodium is at 133, pot assium is down to 4, bicarb is at 18, BUN is 40 with a creatinine of 2.7. Lactic acid level has been downtrending and it peaked at 12.8 and dropped down to 5.8. Awake and alert and communicating. Remains on a bicarb infusion which is running at 75 cc an hour. She is also on norepinephrine at 0.13 mcg/kg/min. She has a right forearm femoral hemodialysis catheter and left femoral triple- lumen catheter. Hemoglobin dropped down to 6.8 and the patient is going to receive a unit of packed RBC. She is on 2 L of oxygen by nasal cannula. Awake and alert and communicating. Patient was seen today on 05/09/2024, remains in the ICU, on 2 L nasal cannula, off norepinephrine for the last 12 hours, patient is on hemodialysis last hemodialysis was 05/07. Fluid is at 75 cc/h 0.9 normal saline, patient is lethargic but alert, able to answer questions, urine output remains marginal between 10 to 20 cc/h remains on Zosyn. Patient is steadily improving, her labs showed relatively normal CBC, electrolytes are normal bicarb is 27 BUN is 38 creatinine 2.84 procalcitonin level on admission was 0.83, blood cultures remain negative Seen today on 05/10/2024 remains in the ICU, however she is an overflow in the ICU. Patient is hemodynamically stable, temp is 98.4, blood pressure 133/72 and O2 sat is 96% on 2 L nasal cannula. IV fluid is running at 75 cc/h/0.9 normal saline patient remains on Zosyn and on Eliquis I have discontinued her Solu- Cortef which was started empirically upon admission when she came in with hypotension. Mentation is still slow but seems to be fairly appropriate. She k new where she was and she knew the name of the president. Labs from today showed relatively normal CBC except for hemoglobin of 7.5 low potassium of 3.1 BUN is 26 creatinine 2.27, Steadily improving, patient came in with a potassium of 4.09 The patient is seen today May 11, 2024 in follow-up on the selective care unit. She was transferred out of the intensive care unit. She is much more aw nick and alert. Family is at the bedside. She is maintaining good O2 saturations in the 90s on 2 L/min per nasal cannula. She remains on normal saline at 75 mL/h. Anticoagulated with Eliquis. Remains on Zosyn. Urine and blood cultures revealed no growth. White count 11.2. Hemoglobin 8.0. [place] telets 186. Sodium 130. Potassium 4.0. Bicarb 23. BUN 35. Creatinine 2.58. Glucose 87. Glucose 113. AST 338. ALT 329. Creatinine kinase 1024. Objective - Vital Signs Vital signs: Vital Signs Temp 98.1 F 05/11/24 11:32 Pulse 94 05/11/24 11:32 Resp 14 05/11/24 11:32 BP 155/73 05/11/24 11:32 Pulse Ox 97 05/11/24 11:32 FiO2 Intake & Output 05/10/24 05/11/24 05/11/24 18:59 06:59 18:59 Intake Total 850 Output Total 150 40 150 Balance 700 -40 -150 Weight 103.4 kg Intake: IV 750 Sodium Chloride 0.9% 1, 750 000 ml @ 75 mls/hr IV . [id number] PREM Rx#:[id number] Intake, IV Titration 100 Amount Piperacillin-Tazobactam 3 100 .375 gm In Sodium Chloride 0.9% 100 ml @ 25 mls/hr IVPB Q12H PREM Rx# :[id number] Output: Urine 150 40 150 Uretheral (Enriquez) 40 Other: Voiding Method Indwelling Catheter Indwelling Catheter Indwelling Catheter # Bowel Movements 1 - Exam GENERAL EXAM: Alert, oriented 69-year-old female, on 2 L nasal cannula, comfortable in no apparent distress. HEAD: Normocephalic. EYES: Normal reaction of pupils, equal size. NOSE: Clear with pink turbinates. THROAT: No erythema or exudates. NECK: No masses, no JVD. CHEST: No chest wall deformity. LUNGS: Equal air entry with no crackles, wheeze, rhonchi or dullness. CVS: S1 and S2 normal with no audible murmur, regular rhythm. ABDOMEN: No hepatosplenomegaly, normal bowel sounds, no guarding or rigidity. SPINE: No scoliosis or deformity SKIN: No rashes CENTRAL NERVOUS SYSTEM: No focal deficits, tone is normal in all 4 extremities. EXTREMITIES: There is no peripheral edema. No clubbing, no cyanosis. Peripheral pulses are intact. - Labs CBC & Chem 7: 05/11/24 06:06 05/11/24 06:43 Labs: Abnormal Lab Results - Last 24 Hours (Table) 05/10/24 05/10/24 05/10/24 Range/Units 16:45 16:53 22:05 WBC (3.8-10.6) k/uL RBC (3.80-5.40) m/uL Hgb (11.4-16.0) gm/dL Hct (34.0-46.0) % MCV (80.0-100.0) fL RDW (11.5-15.5) % Neutrophils # (Manual) (1.3-7.7) k/uL Macrocytosis Sodium (137-145) mmol/L Potassium 3.1 L 3.3 L (3.5-5.1) mmol/L BUN (7-17) mg/dL Creatinine (0.52-1.04) mg/dL POC Glucose (mg/dL) 112 H (70-110) mg/dL Calcium (8.4-10.2) mg/dL AST (14-36) U/L ALT (4-34) U/L Creatine Kinase (30-135) U/L Total Protein (6.3-8.2) g/dL Albumin (3.5-5.0) g/dL 05/11/24 05/11/24 05/11/24 Range/Units 06:06 06:43 11:52 WBC 11.2 H (3.8-10.6) k/uL RBC 2.33 L (3.80-5.40) m/uL Hgb 8.0 L (11.4-16.0) gm/dL Hct 24.6 L (34.0-46.0) % MCV 105.5 H (80.0-100.0) fL RDW 17.6 H (11.5-15.5) % Neutrophils # (Manual) 9.10 H (1.3-7.7) k/uL Macrocytosis Marked A Sodium 130 L (137-145) mmol/L Potassium (3.5-5.1) mmol/L BUN 35 H (7-17) mg/dL Creatinine 2.58 H (0.52-1.04) mg/dL POC Glucose (mg/dL) 113 H (70-110) mg/dL Calcium 6.4 L* (8.4-10.2) mg/dL AST 338 H (14-36) U/L ALT 329 H (4-34) U/L Creatine Kinase 1024 H* (30-135) U/L Total Protein 4.1 L (6.3-8.2) g/dL Albumin 2.4 L (3.5-5.0) g/dL Microbiology - Last 24 Hours (Table) 05/07/24 12:00 Blood Culture - Preliminary Blood Assessment and Plan Assessment: Acute Hypovolemic shock secondary to dehydration and metformin Anion gap metabolic acidosis, resolved, this was most likely due to the combin ation of dehydration and metformin Acute kidney injury improving Acute hyperkalemia secondary to acute kidney injury and metabolic acidosis, recovered Acute rhabdomyolysis, improved Acute on chronic anemia Type 2 diabetes, patient has been on Ozempic insulin Lantus and metformin which is presently off Chronic right hemidiaphragm paralysis Acute metabolic encephalopathy History of hypertension Dyslipidemia Previous history of DVT, on anticoagulation therapy on outpatient basis History of underlying COPD Hypothyroidism Plan: The patient was seen and evaluated Labs and medications reviewed Mentation improving daily Stable on 2 L nasal cannula Titrate down/off the FiO2 as tolerated Hemodialysis per nephrology May require subacute rehabilitation at discharge I have personally seen and examined the patient, performed the documentation and the assessment and plan as written. Number of minutes spent on the visit: 10 Dictation was produced using Dragon dictation software. Please excuse any grammatical, word or spelling errors.
[2024-05-11 16:49] LABS: Glucose,Whole Blood 125 mg/dL (70-110)
[2024-05-11 17:00] LABS: % Iron Saturation 72.97 (12.00-45.00); Complement C3 63.7 mg/dL (80.0-207.0)
[2024-05-11 20:19] LABS: Glucose,Whole Blood 95 mg/dL (70-110)
[2024-05-11] MEDS: MORPHINE SULFATE 2 MG/ML SYRINGE IVP STA (20:45)
--- NOTE | 2024-05-11 21:56 | US ---
EXAMINATION TYPE: US gallbladder DATE OF EXAM: 05/11/2024 COMPARISON: CT, US 2024 CLINICAL INDICATION: Female, 69 years old with history of transaminitis; Transaminitis. TECHNIQUE: Grayscale and color Doppler imaging of the right upper quadrant. FINDINGS: EXAM MEASUREMENTS: Liver Length: 13.5 cm Gallbladder Wall: 0.33 cm CBD: Obscured Right Kidney: 13.0 x 6.9 x 6.7 cm TELEVISION [employer] NOTES: Exam is limited due to great amount of gas Pancreas: Obscured Liver: All images taken intercostally. Left lobe was obscured. Appears coarse. Ascites seen in RUQ. Gallbladder: Measures 4.3 cm in transverse. Wall measures borderline.*Multiple hyperechoic foci seen in the gallbladder neck. Unable to visualize gallbladder well in supine. Evidence for sonographic Randolph's sign: No CBD: Obscured Right Kidney: Enlarged. No hydronephrosis or masses seen, limited. Incidental finding: appearance of probable right pleural effusion seen in RUQ imaging. *Scanned all four quadrants due to some ascites seen in RUQ. Ascites seen in LUQ and LLQ. IMPRESSION: 1. No evidence for acute process. 2. Cholelithiasis. 3. Hepatic steatosis. 4. Small ascites. 5. Small right pleural effusion. [facility], , 05/11/2024 9:54 PM
[2024-05-11] MEDS: VANCOMYCIN 1,500 MG in SODIUM CHLORIDE 0.9% 500 ML 500 ML IVPB ONE (22:28)
[2024-05-12 06:18] LABS: Glucose,Whole Blood 123 mg/dL (70-110)
[2024-05-12 08:12] LABS: Anisocytosis Slight; Basophils % (A) 0 %; Eosinophils # (A) 0.2 k/uL (0-0.7); Eosinophils % (A) 2 %; HCT 23.1 % (34.0-46.0); HGB 7.7 gm/dL (11.4-16.0); Lymphocytes % (A) 12 %; MCH 34.7 pg (25.0-35.0); MCHC 33.4 g/dL (31.0-37.0); MCV 103.8 fL (80.0-100.0); Macrocytosis Moderate; Mean Platelet Volume 8.6; Monocytes # (A) 0.5 k/uL (0-1.0); Monocytes % (A) 6 %; Neutrophils # (A) 6.2 k/uL (1.3-7.7); Neutrophils % (A) 77 %; Platelet Count 156 k/uL (150-450); RBC 2.23 m/uL (3.80-5.40); RDW 17.4 % (11.5-15.5); WBC 8.1 k/uL (3.8-10.6)
[2024-05-12 08:27] LABS: ALT 288 U/L (4-34); AST 216 U/L (14-36); African American GFR (CKD) 32 (>60 ml/min/1.73 sqM); Albumin 2.3 g/dL (3.5-5.0); Alkaline Phosphatase 110 U/L (38-126); Anion Gap 4 mmol/L; Blood Urea Nitrogen 20 mg/dL (7-17); Calcium 6.8 mg/dL (8.4-10.2); Carbon Dioxide 28 mmol/L (22-30); Chloride 100 mmol/L (98-107); Creatine Kinase 730 U/L (30-135); Glucose 109 mg/dL (74-99); Magnesium 1.8 mg/dL (1.6-2.3); Non-African American GFR(CKD) 28 (>60 ml/min/1.73 sqM); Phosphorus 3.1 mg/dL (2.5-4.5); Potassium 3.8 mmol/L (3.5-5.1); Sodium 132 mmol/L (137-145); Total Bilirubin 0.7 mg/dL (0.2-1.3); Total Protein 4.1 g/dL (6.3-8.2)
--- NOTE | 2024-05-12 10:10 | P.PN ---
Subjective Patient is seen in follow-up for acute kidney injury. Started on hemodialysis May 07, 2024. On IV fluids. Remains oliguric. No problems with dialysis yesterday. Oral intake fair. Denies chest pain or shortness of breath. Vital signs are stable. General: Resting in bed. HEENT: On nasal cannula. LUNGS: No audible rhonchi or wheezes. HEART: Rate and Rhythm are regular. ABDOMEN: No distention. EXTREMITITES: Trace edema. Chronic changes noted. Objective - Vital Signs Vital signs: Vital Signs Temp 98.1 F 05/12/24 04:00 Pulse 85 05/12/24 04:00 Resp 18 05/12/24 04:00 BP 151/78 05/12/24 04:00 Pulse Ox 99 05/12/24 04:00 FiO2 Intake & Output 05/11/24 05/12/24 05/12/24 18:59 06:59 18:59 Intake Total 1100 Output Total 150 1600 Balance -150 -500 Intake: IV 700 Piperacillin-Tazobactam 3 700 .375 gm In Sodium Chloride 0.9% 100 ml @ 25 mls/hr IVPB Q12HR [facility] Rx #:[id number] Hemodialysis 400 Output: Urine 150 Hemodialysis 1000 Hemodialysis Net Amount 600 Other: Voiding Method Indwelling Catheter Indwelling Catheter - Labs CBC & Chem 7: 05/12/24 07:44 05/12/24 07:44 Labs: Abnormal Lab Results - Last 24 Hours (Table) 05/11/24 05/11/24 05/11/24 Range/Units 11:39 11:52 16:48 RBC (3.80-5.40) m/uL Hgb (11.4-16.0) gm/dL Hct (34.0-46.0) % MCV (80.0-100.0) fL RDW (11.5-15.5) % Sodium (137-145) mmol/L BUN (7-17) mg/dL Creatinine (0.52-1.04) mg/dL Glucose (74-99) mg/dL POC Glucose (mg/dL) 113 H 125 H (70-110) mg/dL Calcium (8.4-10.2) mg/dL TIBC 148 L (228-460) UG/DL % Saturation 72.97 H (12.00-45.00) Transferrin 106.0 L (204.0-354.0) mg/dL Ferritin 3143.0 H (10.0-291.0) ng/mL AST (14-36) U/L ALT (4-34) U/L Creatine Kinase (30-135) U/L Total Protein (6.3-8.2) g/dL Albumin (3.5-5.0) g/dL Complement C3 63.7 L (80.0-207.0) mg/dL 05/12/24 05/12/24 05/12/24 Range/Units 06:16 07:44 07:44 RBC 2.23 L (3.80-5.40) m/uL Hgb 7.7 L (11.4-16.0) gm/dL Hct 23.1 L (34.0-46.0) % MCV 103.8 H (80.0-100.0) fL RDW 17.4 H (11.5-15.5) % Sodium 132 L (137-145) mmol/L BUN 20 H (7-17) mg/dL Creatinine 1.84 H (0.52-1.04) mg/dL Glucose 109 H (74-99) mg/dL POC Glucose (mg/dL) 123 H (70-110) mg/dL Calcium 6.8 L (8.4-10.2) mg/dL TIBC (228-460) UG/DL % Saturation (12.00-45.00) Transferrin (204.0-354.0) mg/dL Ferritin (10.0-291.0) ng/mL AST 216 H (14-36) U/L ALT 288 H (4-34) U/L Creatine Kinase 730 H (30-135) U/L Total Protein 4.1 L (6.3-8.2) g/dL Albumin 2.3 L (3.5-5.0) g/dL Complement C3 (80.0-207.0) mg/dL Microbiology - Last 24 Hours (Table) 05/06/24 15:23 Blood Culture - Final Blood Assessment and Plan Plan: Assessment: 1. Acute kidney injury secondary to ATN secondary to shock. Creatinine 0.8 in September 2023 and elevated at 4.09 this admission. Oliguric. Started on h emodialysis May 07, 2024. No hydronephrosis noted on imaging. UA with 2+ protein and no blood. 2. Anion gap metabolic acidosis secondary to acute kidney injury, lactic acidosis and use of metformin. Improved with bicarb drip and dialysis. Urine ketones and serum acetone negative. 3. Acute blood loss anemia status post blood transfusion this admission. Platelet count normal. LDH high, haptoglobin not low. Iron replete. 4. Chronic kidney disease stage I with baseline creatinine near 0.8 from September 2023. She has underlying diabetic kidney disease with proteinuria. 5. Hyperkalemia secondary to acute kidney injury and acidosis. Resolved. Then potassium low and was replaced. 6. Mild rhabdomyolysis. CK levels have been trending down. 7. Hypocalcemia secondary to acute kidney injury. Replaced. Corrected calcium in the normal range. Plan: Hemodialysis tomorrow. Will maintain on Thursday schedule. Serologies negative except for low C3. Maintain normal saline. Monitor for renal recovery. Repeat 80 mg IV Lasix today. Add Aranesp. Phosphorus level 3.1 dated May 12, 2024. Discussed kidney biopsy for definitive diagnosis - will be scheduled outpatient as no interventional radiologist available till June 07. Will need permacath placed and removal of temporary dialysis catheter in the next 2 to 3 days if no improvement in renal function.
[2024-05-12] MEDS: FUROSEMIDE 10 MG/ML 10 ML VIAL IV STA (12:19)
[2024-05-12 12:24] LABS: Glucose,Whole Blood 134 mg/dL (70-110)
--- NOTE | 2024-05-12 12:37 | CT ---
EXAMINATION TYPE: CT abdomen pelvis w con DATE OF EXAM: 05/12/2024 11:59 AM COMPARISON: 05/06/2024 CLINICAL INDICATION: Female, 69 years old with history of abdominal pain, RENAL FAILURE TECHNIQUE: Axial images were obtained from above the diaphragm to the pubic rami in the axial plane a t 5 mm thick sections. Reconstructed images are reviewed on the computer in the coronal plane. CONTRAST: 80 ML mL of Isovue 300. Study performed without Oral Contrast DLP: 1883.6 mGycm, Automated exposure control for dose reduction was used. FINDINGS: Limited CT sections are obtained the lung bases. Small bilateral pleural effusions are present great er on the right. This is new from comparison. Some compressive atelectasis at the right lung base. CT ABDOMEN: Subcutaneous edema appears to be present throughout the abdomen and pelvis Liver: Normal Spleen: Normal Pancreas: Some mild inflammatory change may be adjacent to the pancreas. Correlate for acute pancreat itis. No pseudocyst formation or abscess identified. Adrenal glands: The adrenal glands are normal. Gallbladder: A few small gallstones are present Kidneys: No masses are evident. No hydronephrosis is present. No cysts are present. Some perinephr ic stranding may be present. This is nonspecific. Consider pyelonephritis Aorta: Vascular calcification is within the aorta. Inferior vena cava: Normal. CT PELVIS: Small amount of free fluid is within the pelvis Loops of bowel within the abdomen and pelvis are normal. There are loops of bowel which are incom pletely distended or lack oral contrast limiting their evaluation. Appendix: What appears to be the appendix is normal as visualized. Urinary bladder: Normal. Genitourinary structures: Osseous structures: No suspicious lytic or sclerotic lesions. Postsurgical and degenerative changes a re within the lumbar spine. Degenerative disc changes are within the lower thoracic region IMPRESSION: 1. Clinical correlation recommended for acute pancreatitis. 2. Ascites. 3. Diffuse subcutaneous edema [facility], Workstation: [id number], 05/12/2024 12:34 PM
--- NOTE | 2024-05-12 13:28 | P.PN ---
Subjective Progress Note Date: 05/12/24 On 05/07/2024, the patient is being seen in consultation in the emergency department for hypotension and severe lactic acidosis. The patient is known to have diabetes mellitus type 2, hypertension hyperlipidemia and previous history of a DVT for which she has been maintained on anticoagulation. She is also known to have a chronic right hemidiaphragmatic paralysis. The patient came into the hospital feeling generalized weakness and she also had diminished level of consciousness and she was having episodes of hypoglycemia. Notably, the patient has been receiving a combination of medication for diabetes which included Lantus insulin, Ozempic, metformin and short acting insulin for blood sugars controlled. The patient was started on D5 water and subsequent blood work showed severe metabolic derangements. The patient's serum bicarb was at 8. The patient's lactic acid level was initially at 8.5 and potassium level was at 6.1. She did have an anion gap of 21 at the time of the admission. At the same time, her calcium level was 8, 9 she had a rhabdomyolysis with a CPK of 2190, troponins were negative, procalcitonin level was at 0.8. UA showed +2 proteins, and acetone was negative. The white cell count was at 12.6 with a hemoglobin of 8.8 and a platelet count of 353. The patient received a total of 4.5 L of IV fluids in the emergency department and subsequently she was started on pressors and currently norepinephrine is running at 0.16 mcg/kg/min. Triple-lumen catheter was inserted. Subsequently, the patient was switched to a bicarb infusion at rate of 125 cc an hour. Most recent labs showed ongoing acidosis with a serum bicarb of 6, lactic acid remains at 9.1. There has been some modest improvement in the kidney function as initial creatinine was at 4.09 and the creatinine is down to 3.81. Potassium level this morning was at 6.7. I gave additional bicarb, D50 insulin and calcium to this patient and informed nephrology. She may need potentially dialysis as the patient may have severe lactic acidosis secondary to metformin. She is being monitored very closely. Blood gas was also done that showed a pH of 7.14 with a pCO2 of 24 and pO2 of 97 this was an FiO2 of 26%. Ultrasound of the kidneys shows no evidence of any hydronephrosis. CAT scan abdomen chest abdomen and pelvis shows right hemidiaphragmatic elevation, otherwise no other significant abnormalities. Despite all this abnormalities, the patient seems to be arousable and communicating. She seems to be appropriate. She is on 1 and half liters of oxygen by nasal cannula with a pulse ox of 95%. On 05/08/2024, the patient is being seen for a follow-up. She presented to us with severe metabolic and lactic acidosis. She also had an acute kidney injury. This is attributed to severe intravascular volume depletion and metformin induced lactic acidosis. The patient underwent hemodialysis yesterday. An emergent dialysis was performed as the patient was not producing much of urine output and the patient was also hyperkalemic along with severe metabolic acidosis. She also had severe lactic acidosis. On today's evaluation, the patient is feeling better. Hemodialysis was completed and a second session to be done today. Labs have improved compared to yesterday. Sodium is at 133, pot assium is down to 4, bicarb is at 18, BUN is 40 with a creatinine of 2.7. Lactic acid level has been downtrending and it peaked at 12.8 and dropped down to 5.8. Awake and alert and communicating. Remains on a bicarb infusion which is running at 75 cc an hour. She is also on norepinephrine at 0.13 mcg/kg/min. She has a right forearm femoral hemodialysis catheter and left femoral triple- lumen catheter. Hemoglobin dropped down to 6.8 and the patient is going to receive a unit of packed RBC. She is on 2 L of oxygen by nasal cannula. Awake and alert and communicating. Patient was seen today on 05/09/2024, remains in the ICU, on 2 L nasal cannula, off norepinephrine for the last 12 hours, patient is on hemodialysis last hemodialysis was 05/07. Fluid is at 75 cc/h 0.9 normal saline, patient is lethargic but alert, able to answer questions, urine output remains marginal between 10 to 20 cc/h remains on Zosyn. Patient is steadily improving, her labs showed relatively normal CBC, electrolytes are normal bicarb is 27 BUN is 38 creatinine 2.84 procalcitonin level on admission was 0.83, blood cultures remain negative Seen today on 05/10/2024 remains in the ICU, however she is an overflow in the ICU. Patient is hemodynamically stable, temp is 98.4, blood pressure 133/72 and O2 sat is 96% on 2 L nasal cannula. IV fluid is running at 75 cc/h/0.9 normal saline patient remains on Zosyn and on Eliquis I have discontinued her Solu- Cortef which was started empirically upon admission when she came in with hypotension. Mentation is still slow but seems to be fairly appropriate. She k new where she was and she knew the name of the president. Labs from today showed relatively normal CBC except for hemoglobin of 7.5 low potassium of 3.1 BUN is 26 creatinine 2.27, Steadily improving, patient came in with a potassium of 4.09 The patient is seen today May 11, 2024 in follow-up on the selective care unit. She was transferred out of the intensive care unit. She is much more aw nick and alert. Family is at the bedside. She is maintaining good O2 saturations in the 90s on 2 L/min per nasal cannula. She remains on normal saline at 75 mL/h. Anticoagulated with Eliquis. Remains on Zosyn. Urine and blood cultures revealed no growth. White count 11.2. Hemoglobin 8.0. Santiago telets 186. Sodium 130. Potassium 4.0. Bicarb 23. BUN 35. Creatinine 2.58. Glucose 87. Glucose 113. AST 338. ALT 329. Creatinine kinase 1024. The patient is seen today May 12, 2024 in follow-up on the selective care unit. She is awake and alert in no acute distress. She remains resting comfortably in bed. Attaining good O2 saturations in the high 90s on room air. Afebrile. Hemodynamically stable. Ultrasound of the abdomen revealed no acute process. Cholelithiasis. Hepatic steatosis. Small ascites. Small right pleural effusion. The scan of the abdomen and pelvis revealed ascites. Diffuse subcutaneous edema. Possible mild acute pancreatitis. She is status post 1 un it of packed red blood cells this admission. Current hemoglobin 7.7. Platelets 156. White count 8.1. Sodium 132. Potassium 3.8. Bicarb 28. BUN 20. Creatinine 1.84. Glucose 109. AST 216. ALT 288. Creatinine kinase 730. She remains on Zosyn. Anticoagulated with Eliquis. Objective - Vital Signs Vital signs: Vital Signs Temp 98.4 F 05/12/24 08:30 Pulse 93 05/12/24 08:30 Resp 17 05/12/24 08:30 BP 146/74 01/16/25 08:30 Pulse Ox 99 05/12/24 08:30 FiO2 Intake & Output 05/11/24 05/12/24 05/12/24 18:59 06:59 18:59 Intake Total 1100 Output Total 150 1600 Balance -150 -500 Intake: IV 700 Piperacillin-Tazobactam 3 700 .375 gm In Sodium Chloride 0.9% 100 ml @ 25 mls/hr IVPB Q12HR [facility] Rx #:[id number] Hemodialysis 400 Output: Urine 150 Hemodialysis 1000 Hemodialysis Net Amount 600 Other: Voiding Method Indwelling Catheter Indwelling Catheter - Exam GENERAL EXAM: Alert, oriented, very weak 69-year-old female, resting in bed, on room air, comfortable in no apparent distress. HEAD: Normocephalic. EYES: Normal reaction of pupils, equal size. NOSE: Clear with pink turbinates. THROAT: No erythema or exudates. NECK: No masses, no JVD. CHEST: No chest wall deformity. LUNGS: Equal air entry with no crackles, wheeze, rhonchi or dullness. CVS: S1 and S2 normal with no audible murmur, regular rhythm. ABDOMEN: No hepatosplenomegaly, normal bowel sounds, no guarding or rigidity. SPINE: No scoliosis or deformity SKIN: No rashes CENTRAL NERVOUS SYSTEM: No focal deficits, tone is normal in all 4 extremities. EXTREMITIES: There is no peripheral edema. No clubbing, no cyanosis. Peripheral pulses are intact. - Labs CBC & Chem 7: 05/12/24 07:44 05/12/24 07:44 Labs: Abnormal Lab Results - Last 24 Hours (Table) 05/11/24 05/11/24 05/12/24 Range/Units 11:39 16:48 06:16 RBC (3.80-5.40) m/uL Hgb (11.4-16.0) gm/dL Hct (34.0-46.0) % MCV (80.0-100.0) fL RDW (11.5-15.5) % Sodium (137-145) mmol/L BUN (7-17) mg/dL Creatinine (0.52-1.04) mg/dL Glucose (74-99) mg/dL POC Glucose (mg/dL) 125 H 123 H (70-110) mg/dL Calcium (8.4-10.2) mg/dL TIBC 148 L (228-460) UG/DL % Saturation 72.97 H (12.00-45.00) Transferrin 106.0 L (204.0-354.0) mg/dL Ferritin 3143.0 H (10.0-291.0) ng/mL AST (14-36) U/L ALT (4-34) U/L Creatine Kinase (30-135) U/L Total Protein (6.3-8.2) g/dL Albumin (3.5-5.0) g/dL Complement C3 63.7 L (80.0-207.0) mg/dL 05/12/24 05/12/24 05/12/24 Range/Units 07:44 07:44 12:23 RBC 2.23 L (3.80-5.40) m/uL Hgb 7.7 L (11.4-16.0) gm/dL Hct 23.1 L (34.0-46.0) % MCV 103.8 H (80.0-100.0) fL RDW 17.4 H (11.5-15.5) % Sodium 132 L (137-145) mmol/L BUN 20 H (7-17) mg/dL Creatinine 1.84 H (0.52-1.04) mg/dL Glucose 109 H (74-99) mg/dL POC Glucose (mg/dL) 134 H (70-110) mg/dL Calcium 6.8 L (8.4-10.2) mg/dL TIBC (228-460) UG/DL % Saturation (12.00-45.00) Transferrin (204.0-354.0) mg/dL Ferritin (10.0-291.0) ng/mL AST 216 H (14-36) U/L ALT 288 H (4-34) U/L Creatine Kinase 730 H (30-135) U/L Total Protein 4.1 L (6.3-8.2) g/dL Albumin 2.3 L (3.5-5.0) g/dL Complement C3 (80.0-207.0) mg/dL Microbiology - Last 24 Hours (Table) 05/06/24 15:23 Blood Culture - Final Blood Assessment and Plan Assessment: Acute hypovolemic shock secondary to dehydration and metformin Anion gap metabolic acidosis, resolved, this was most likely due to the combination of dehydration and metformin Acute kidney injury improving Acute hyperkalemia secondary to acute kidney injury and metabolic acidosis, recovered Acute rhabdomyolysis, improved Acute on chronic anemia status post 1 unit of packed red blood cells this admission Type 2 diabetes, patient has been on Ozempic, Lantus plan and metformin which is presently off Chronic right hemidiaphragm paralysis Acute metabolic encephalopathy, improved History of hypertension Dyslipidemia Previous history of DVT, on anticoagulation therapy on outpatient basis History of underlying COPD Hypothyroidism Plan: The patient was seen and evaluated Imaging, labs and medications reviewed Mentation improving daily Stable on room air Remains very weak Physical therapy consult Hemodialysis Thursday May require subacute rehabilitation at discharge I have personally seen and examined the patient, performed the documentation and the assessment and plan as written. Number of minutes spent on the visit: 10 Dictation was produced using [employer] dictation software. Please excuse any grammatical, word or spelling errors.
--- NOTE | 2024-05-12 15:39 | US ---
EXAMINATION TYPE: US venous doppler duplex LE DATE OF EXAM: 05/12/2024 3:12 PM COMPARISON: US(05/01/2021) CLINICAL INDICATION: Female, 69 years old with history of swelling; , Pain TECHNIQUE: The lower extremity deep venous system is examined utilizing real time linear array sonog mariela with graded compression, color doppler sonography, and spectral doppler. SIDE PERFORMED: Bilateral FINDINGS: VESSELS IMAGED: Common Femoral Vein Deep Femoral Vein Greater Saphenous Vein * Femoral Vein Popliteal Vein Small Saphenous Vein * Proximal Calf Veins (* superficial vessels) Pt had med port placed in rt groin, unable to obtain images of EIV& CFV & GSV due to bandage covering this area Very limited exam due to pt body habitus and bilateral edema Martha post scanned Right Leg: Cannot exclude due to poor visualization, Color Doppler imaging shows patency of the vess els. Spectral waveforms are within normal limits. very limited due to severe edema & pt non mobile Left Leg: Cannot exclude due to poor visualization , Color Doppler imaging shows patency of the vess els. Spectral waveforms are within normal limits. very limited due to severe edema & pt non mobile IMPRESSION: 1. Examination is extremely limited. No obvious thrombus evident. Follow-up can be performed as clini allison indicated to reevaluate for thrombus if suspected. [facility], , 05/12/2024 3:37 PM
[2024-05-12] MEDS ORDERED: DEXTROSE 5%-0.45% NACL 1,000 ML IV SCH (16:15)
[2024-05-12 16:57] LABS: Glucose,Whole Blood 116 mg/dL (70-110)
--- NOTE | 2024-05-12 18:09 | P.PN ---
Subjective Progress Note Date: 05/12/24 Hospital Course: A 69-year-old female with past medical history of difficult to control diabetes, history of DVT on Eliquis, HLD, HTN, osteoarthritis, hypothyroidism, history of hypoxic respiratory failure due to pneumonia requiring supplemental oxygen use, history of MSSA sepsis 2017, MRSA bacteremia 2016, recent UTI treated with outpatient antibiotics, who presented to the ER complaining of generalized weakness, low blood sugar, nausea, vomiting. Patient was throwing up for several days, multiple times a day, stopped on 05/05, no associated abdominal pain, bowel habit changes, fevers, chills. Patient states that she went down on her Lantus while throwing up (she is usually on 24 in the AM and 30 p.m., was taking 18 and 28 accordingly)., She is also on metformin 1000 twice daily, Ozempic 1 mg, She did have recent UTI that was treated as outpatient with oral antibiotics, she is not sure what type of antibiotic and for how long she was on it. She noted urinary frequency. ED course: Patient's blood pressure was 102/44 on admission, heart rate in 80s, afebrile initially. EKG showed QTc of 434, junctional rhythm. Chest x-ray with no acute process. CT of the abdomen and pelvis showed chronic elevation of the right hemidiaphragm and no source of infection. Kidney bladder ultrasound showed anechoic bladder, no hydronephrosis, no nephrolithiasis and masses. Lab work significant for leukocytosis 12.6, anemia hemoglobin 8.8, macrocytosis, sodium 136, potassium 5.6, bicarb 9, BUN 68, creatinine 4.09, lactate 8.3, phosphorus 5.8, ALT elevated 124 AST 119, CK 2190, trended down to 2020. Negative troponin, CRP negative, UA positive for proteinuria and hematuria, viral panel negative. Sepsis protocol was initiated, blood in the urine cultures obtained, fluid bolus given, received hyperkalemia cocktail with calcium gluconate, insulin, Lokelma. Patient has been having profound hypotension that did not respond to fluid bolus and was started on Levophed, femoral central line placed in the ER. Patient was started on broad-spectrum antibiotics with Zosyn, vancomycin, started on bicarb drip, D10 drip, Solu-Medrol. Patient had mild improvement of hyperkalemia after hyperkalemia cocktail, potassium again elevated 05/07 in the morning at 6.7, another hyperkalemia protocol given with IV insulin, calcium gluconate, bicarb pushes x 2. Despite continuous IV hydration, bicarb drip, patient continued to be profoundly acidotic with carbon dioxide trending down from 9-6, ABG showed pH of 7.14, lactic acid up to 9.7. Nephrology consulted. IR consulted for tunneled catheter placement, plan for HD 05/08 ICU consulted. Awaiting for an ICU bed 05/08 hemoglobin noted at 6.8, 1 unit of PRBC ordered, Eliquis was previously decreased to 2.5 twice daily, now on hold.. Acidosis improved, carbon dioxide 18, anion gap 15, creatinine trending down to 2.75 now, potassium normal, CK trending down, lactic acid peaked at 12.8 overnight, now 7.6. Pertinent Imaging: Abdominal x-ray after catheter placement, expected location of the IVC, no acute process in the abdomen. Subjective: 05/08/2024: She was seen and examined in the ER, she feels fatigued but better today, more awake, denies abdominal pain, chest pain 05/09/2024: Patient seen and examined at bedside. She was responsive to commands, alert and oriented. Denies any abdominal or chest pain, feels fatigued. 05/10/2024: Patient seen evaluated bedside. Patient awake and oriented and responding to commands. States that she has pain all over and would like to go back on some type of pain regiment. Patient states she has been feeling anxious especially prior to getting hemodialysis. 05/11/2024: Patient seen evaluated bedside. Patient awake and oriented responding to commands. Reports difficulty voiding. Hemodialysis scheduled for today. 05/12/2024: Patient seen and evaluated bedside. Patient awake and oriented and responding to commands. Reports difficulty avoiding. Still mentions of upper abdominal pain. Pertinent positives and negatives as discussed above, a complete review of systems was performed and all other systems are negative. Vitals Signs Reviewed. Physical Exam: General: Ill-appearing, lethargic, obese Derm: warm, dry, intact Head: atraumatic, normocephalic, symmetric Eyes: EOMI, anicteric sclera Mouth: no lip lesion, mucus membranes moist Cardiovascular: S1 S2 reg, no murmur, rubs, or gallops Lungs: CTA bilateral, no rhonchi, no rales, no accessory muscle use Abdominal: soft, non-tender to palpataion, no appreciable organomegaly Extremities: livedo reticularis bilateral tight resolved, bilateral lower extremity venous chronic stasis discoloration, swelling: Tunneled catheter, CVC present in bilateral femoral veins, anasarca Neuro: Alert, Oriented, CNII-XII grossly intact Psych: appropriate affect Data Reviewed Today: Pertinent Labs: WBC 8.1, Hgb 7.7, platelet 156, sodium 132, potassium 3.8, BUN 20, creatinine 1.84, calcium 6 point, AST 216, ALT 288, lipase 1950 Pertinent imaging: Abd/Pelvis CT displaying acute pancreatitis Assessment and Plan: Patient is a 69-year-old female with a past medical history of uncontrolled insulin-dependent diabetes, DVT on Eliquis, hyperlipidemia, hypertension, histor y of ESBL infection (11/05/23), history of MRSA infection (2016) admitted for acute renal failure likely secondary to hypotension, ATN. #. Acute renal failure likely secondary to profound hypotension, possible ATN, on dialysis #. Acute metabolic encephalopathy secondary to above #. Anasarca #. Acute on chronic macrocytic anemia, status post 1 unit PRBC #Anemia of chronic disease Follow-up urine and blood cultures, no growth to date Strict I's and O's Cardiac monitoring Placed on [place] 5325 PO q6hr PRN Status post IV Lasix on 05/08/2024 with no significant change in urine output Nephrology following, note read. Hemo-dialysis today. If no improvement consider kidney biopsy. IV desmopressin acetate 22 mcg IVPB once by nephrology Follow-up BMP to monitor kidney function - Repeat CBC tomorrow Hemodialysis Thursday Based on low complement levels and newly diagnosed acute pancreatitis IgG subclass 1-4 was ordered to rule out IgG4 related disease #. Leukocytosis with neutrophilic bandemia #. Transaminitis WBC 11.2, neutrophil 9.1, band neutrophils 3% AST and ALT levels trending down Gallbladder ultrasound displaying no evidence for acute process, cholelithiasis, hepatic steatosis, small ascites Continue with Zosyn #. Acute Pancreatitis - Abd/Pelvis CT displaying acute pancreatitis - lipase 1950 IgG4-RD is a consideration given kidney dysfunction + pancreatitis, sublevels ordered - Gallstone pancreatitis a consideration given cholelithiasis, team to consider gen surgery consult - c/w fluid management normal saline 75 cc/HR - Make patient NPO #. Acute hypocalcemia Calcium 6.4 Calcium gluconate 2 g IVPB once #. Acute rhabdomyolysis, resolving Creatine kinase 1367 => 1024 => 730 Continue with normal saline at 75 cc/hr #. History of DVT Continue with home Eliquis of 5 mg PO twice daily #. Anxiety Seroquel 12.5 mg p.o. once Chronic: #. insulin-dependent type 2 diabetes mellitus Hold metformin, Accu-Cheks, monitor for hypoglycemia # Hypothyroidism: Continue Synthroid #. Hyperlipidemia holding statins #. GERD: Continue Protonix Resolved: Hypokalemia Acute hyperkalemia Distributive shock, septic versus adrenal crisis Anion gap lactic acidosis inpatient patient on metformin: Continue to hold metformin Acute hypoglycemia in a patient with uncontrolled insulin-dependent diabetes F: Normal saline at 75 cc/hour E: P electrolytes as needed N: Consistent carbohydrate diet DVT ppx: Eliquis 5 mg PO BID GI PPx Protonix 40 mg IV daily Code status: Full code Anticipated discharge place: pending clinical course Anticipated discharge time: pending clinical course Patient is severely ill. Prognosis is guarded. I saw and evaluated the patient during the streeter and critical portions of this encounter, and discussed the case in detail with the resident author of this note, I agree with the Assessment and Plan, and my changes, if any, are highlighted in blue. Objective - Vital Signs Vital signs: Vital Signs Temp 98.1 F 05/12/24 04:00 Pulse 85 05/12/24 04:00 Resp 18 05/12/24 04:00 BP 151/78 05/12/24 04:00 Pulse Ox 99 05/12/24 04:00 FiO2 Intake & Output 05/11/24 05/11/24 05/12/24 06:59 18:59 06:59 Intake Total 1100 Output Total 40 150 1600 Balance -40 -150 -500 Intake: IV 700 Piperacillin-Tazobactam 3 700 .375 gm In Sodium Chloride 0.9% 100 ml @ 25 mls/hr IVPB Q12HR PREM Rx #:[id number] Hemodialysis 400 Output: Urine 40 150 Uretheral (Enriquez) 40 Hemodialysis 1000 Hemodialysis Net Amount 600 Other: Voiding Method Indwelling Catheter Indwelling Catheter Indwelling Catheter - Labs CBC & Chem 7: 05/12/24 07:44 05/12/24 07:44 Labs: Abnormal Lab Results - Last 24 Hours (Table) 05/11/24 05/11/24 05/11/24 Range/Units 06:06 06:43 11:39 WBC 11.2 H (3.8-10.6) k/uL RBC 2.33 L (3.80-5.40) m/uL Hgb 8.0 L (11.4-16.0) gm/dL Hct 24.6 L (34.0-46.0) % MCV 105.5 H (80.0-100.0) fL RDW 17.6 H (11.5-15.5) % Neutrophils # (Manual) 9.10 H (1.3-7.7) k/uL Macrocytosis Marked A Sodium 130 L (137-145) mmol/L BUN 35 H (7-17) mg/dL Creatinine 2.58 H (0.52-1.04) mg/dL POC Glucose (mg/dL) (70-110) mg/dL Calcium 6.4 L* (8.4-10.2) mg/dL TIBC 148 L (228-460) UG/DL % Saturation 72.97 H (12.00-45.00) Transferrin 106.0 L (204.0-354.0) mg/dL Ferritin 3143.0 H (10.0-291.0) ng/mL AST 338 H (14-36) U/L ALT 329 H (4-34) U/L Creatine Kinase 1024 H* (30-135) U/L Total Protein 4.1 L (6.3-8.2) g/dL Albumin 2.4 L (3.5-5.0) g/dL Complement C3 63.7 L (80.0-207.0) mg/dL 05/11/24 05/11/24 05/12/24 Range/Units 11:52 16:48 06:16 WBC (3.8-10.6) k/uL RBC (3.80-5.40) m/uL Hgb (11.4-16.0) gm/dL Hct (34.0-46.0) % MCV (80.0-100.0) fL RDW (11.5-15.5) % Neutrophils # (Manual) (1.3-7.7) k/uL Macrocytosis Sodium (137-145) mmol/L BUN (7-17) mg/dL Creatinine (0.52-1.04) mg/dL POC Glucose (mg/dL) 113 H 125 H 123 H (70-110) mg/dL Calcium (8.4-10.2) mg/dL TIBC (228-460) UG/DL % Saturation (12.00-45.00) Transferrin (204.0-354.0) mg/dL Ferritin (10.0-291.0) ng/mL AST (14-36) U/L ALT (4-34) U/L Creatine Kinase (30-135) U/L Total Protein (6.3-8.2) g/dL Albumin (3.5-5.0) g/dL Complement C3 (80.0-207.0) mg/dL Microbiology - Last 24 Hours (Table) 05/06/24 15:23 Blood Culture - Final Blood
[2024-05-12] MEDS: DARBEPOETIN ALFA 40 MCG/0.4 ML SYRINGE SQ SCH (18:52)
[2024-05-13 06:37] LABS: Glucose,Whole Blood 98 mg/dL (70-110)
[2024-05-13 08:25] LABS: Anisocytosis Slight; Basophils % (A) 0 %; Eosinophils # (A) 0.3 k/uL (0-0.7); Eosinophils % (A) 4 %; HCT 21.4 % (34.0-46.0); HGB 7.1 gm/dL (11.4-16.0); Lymphocytes # (A) 0.9 k/uL (1.0-4.8); Lymphocytes % (A) 13 %; MCH 34.5 pg (25.0-35.0); MCV 104.3 fL (80.0-100.0); Macrocytosis Moderate; Mean Platelet Volume 9.9; Monocytes # (A) 0.5 k/uL (0-1.0); Monocytes % (A) 7 %; Neutrophils # (A) 5.5 k/uL (1.3-7.7); Neutrophils % (A) 74 %; Platelet Count 165 k/uL (150-450); RBC 2.05 m/uL (3.80-5.40); RDW 17.5 % (11.5-15.5); WBC 7.5 k/uL (3.8-10.6)
[2024-05-13 08:34] LABS: ALT 240 U/L (4-34); AST 151 U/L (14-36); African American GFR (CKD) 23 (>60 ml/min/1.73 sqM); Albumin 2.2 g/dL (3.5-5.0); Alkaline Phosphatase 106 U/L (38-126); Anion Gap 5 mmol/L; Blood Urea Nitrogen 27 mg/dL (7-17); Calcium 6.6 mg/dL (8.4-10.2); Carbon Dioxide 27 mmol/L (22-30); Chloride 101 mmol/L (98-107); Creatine Kinase 529 U/L (30-135); Glucose 80 mg/dL (74-99); Magnesium 1.9 mg/dL (1.6-2.3); Non-African American GFR(CKD) 20 (>60 ml/min/1.73 sqM); Potassium 3.8 mmol/L (3.5-5.1); Sodium 133 mmol/L (137-145); Total Bilirubin 0.5 mg/dL (0.2-1.3); Total Protein 3.8 g/dL (6.3-8.2)
--- NOTE | 2024-05-13 10:00 | P.PN ---
Subjective Patient is seen in follow-up for acute kidney injury. Started on hemodialysis May 07, 2024. On IV fluids. Remains oliguric. Oral intake fair. Denies chest pain or shortness of breath. Tolerating dialysis well. Vital signs are stable. General: Resting in bed. HEENT: On nasal cannula. LUNGS: No audible rhonchi or wheezes. HEART: Rate and Rhythm are regular. ABDOMEN: No distention. EXTREMITITES: Trace edema. Chronic changes noted. Objective - Vital Signs Vital signs: Vital Signs Temp 97.7 F 05/13/24 08:00 Pulse 87 05/13/24 08:00 Resp 20 05/13/24 08:00 BP 138/75 05/13/24 08:00 Pulse Ox 99 05/13/24 08:41 FiO2 Intake & Output 05/12/24 05/13/24 05/13/24 18:59 06:59 18:59 Intake Total 250 1400 Balance 250 1400 Intake: IV 1400 Piperacillin-Tazobactam 3 200 .375 gm In Sodium Chloride 0.9% 100 ml @ 25 mls/hr IVPB Q12HR PREM Rx #:[id number] Sodium Chloride 0.9% 1, 1200 000 ml @ 75 mls/hr IV . [id number] PREM Rx#:[id number] Oral 250 Other: Voiding Method Indwelling Catheter Indwelling Catheter Indwelling Catheter # Bowel Movements 1 - Labs CBC & Chem 7: 05/13/24 07:04 05/13/24 06:56 Labs: Abnormal Lab Results - Last 24 Hours (Table) 05/12/24 05/12/24 05/12/24 Range/Units 07:44 12:23 16:56 RBC (3.80-5.40) m/uL Hgb (11.4-16.0) gm/dL Hct (34.0-46.0) % MCV (80.0-100.0) fL RDW (11.5-15.5) % Lymphocytes # (1.0-4.8) k/uL Sodium (137-145) mmol/L BUN (7-17) mg/dL Creatinine (0.52-1.04) mg/dL POC Glucose (mg/dL) 134 H 116 H (70-110) mg/dL Calcium (8.4-10.2) mg/dL AST (14-36) U/L ALT (4-34) U/L Creatine Kinase (30-135) U/L Total Protein (6.3-8.2) g/dL Albumin (3.5-5.0) g/dL Lipase 1950 H (23-300) U/L 05/13/24 05/13/24 Range/Units 06:56 07:04 RBC 2.05 L (3.80-5.40) m/uL Hgb 7.1 L (11.4-16.0) gm/dL Hct 21.4 L (34.0-46.0) % MCV 104.3 H (80.0-100.0) fL RDW 17.5 H (11.5-15.5) % Lymphocytes # 0.9 L (1.0-4.8) k/uL Sodium 133 L (137-145) mmol/L BUN 27 H (7-17) mg/dL Creatinine 2.47 H (0.52-1.04) mg/dL POC Glucose (mg/dL) (70-110) mg/dL Calcium 6.6 L (8.4-10.2) mg/dL AST 151 H (14-36) U/L ALT 240 H (4-34) U/L Creatine Kinase 529 H (30-135) U/L Total Protein 3.8 L (6.3-8.2) g/dL Albumin 2.2 L (3.5-5.0) g/dL Lipase (23-300) U/L Microbiology - Last 24 Hours (Table) 05/07/24 12:00 Blood Culture - Final Blood Assessment and Plan Plan: Assessment: 1. Acute kidney injury secondary to ATN secondary to shock. Creatinine 0.8 in September 2023 and elevated at 4.09 this admission. Oliguric. Started on hemodialysis May 07, 2024. No hydronephrosis noted on imaging. UA with 2+ protein and no blood. 2. Anion gap metabolic acidosis secondary to acute kidney injury, lactic acidosis and use of metformin. Improved with bicarb drip and dialysis. Urine ketones and serum acetone negative. 3. Acute blood loss anemia status post blood transfusion this admission. Platelet count normal. LDH high, haptoglobin not low. Iron replete. On Aranesp. 4. Chronic kidney disease stage I with baseline creatinine near 0.8 from September 2023. She has underlying diabetic kidney disease with proteinuria. 5. Hyperkalemia secondary to acute kidney injury and acidosis. Resolved. Then potassium low and was replaced. 6. Mild rhabdomyolysis. CK levels have been trending down. 7. Hypocalcemia secondary to acute kidney injury. Replaced. Corrected calcium in the normal range. Plan: Currently seen while undergoing hemodialysis. Will maintain on Thursday schedule. Serologies negative except for low C3. Maintain normal saline. Monitor for renal recovery. Status post IV Lasix May 12, 2024 with no improvement in urine output. Phosphorus level 3.1 dated May 12, 2024. Discussed kidney biopsy for definitive diagnosis - will be scheduled outpatient as no interventional radiologist available till June 07. Will need permacath placed and removal of temporary dialysis catheter -vascular surgery will be notified. Check vitamin D and PTH.
[2024-05-13 11:34] LABS: Glucose,Whole Blood 79 mg/dL (70-110)
[2024-05-13] MEDS: ACETAMINOPHEN TAB 325 MG TAB PO PRN (12:55)
--- NOTE | 2024-05-13 15:16 | P.PN ---
Subjective Progress Note Date: 05/13/24 Hospital Course: A 69-year-old female with past medical history of difficult to control diabetes, history of DVT on Eliquis, HLD, HTN, osteoarthritis, hypothyroidism, history of hypoxic respiratory failure due to pneumonia requiring supplemental oxygen use, history of MSSA sepsis 2017, MRSA bacteremia 2016, recent UTI treated with outpatient antibiotics, who presented to the ER complaining of generalized weakness, low blood sugar, nausea, vomiting. Patient was throwing up for several days, multiple times a day, stopped on 05/05, no associated abdominal pain, bowel habit changes, fevers, chills. Patient states that she went down on her Lantus while throwing up (she is usually on 24 in the AM and 30 p.m., was taking 18 and 28 accordingly)., She is also on metformin 1000 twice daily, Ozempic 1 mg, She did have recent UTI that was treated as outpatient with oral antibiotics, she is not sure what type of antibiotic and for how long she was on it. She noted urinary frequency. ED course: Patient's blood pressure was 102/44 on admission, heart rate in 80s, afebrile initially. EKG showed QTc of 434, junctional rhythm. Chest x-ray with no acute process. CT of the abdomen and pelvis showed chronic elevation of the right hemidiaphragm and no source of infection. Kidney bladder ultrasound showed anechoic bladder, no hydronephrosis, no nephrolithiasis and masses. Lab work significant for leukocytosis 12.6, anemia hemoglobin 8.8, macrocytosis, sodium 136, potassium 5.6, bicarb 9, BUN 68, creatinine 4.09, lactate 8.3, phosphorus 5.8, ALT elevated 124 AST 119, CK 2190, trended down to 2020. Negative troponin, CRP negative, UA positive for proteinuria and hematuria, viral panel negative. Sepsis protocol was initiated, blood in the urine cultures obtained, fluid bolus given, received hyperkalemia cocktail with calcium gluconate, insulin, Lokelma. Patient has been having profound hypotension that did not respond to fluid bolus and was started on Levophed, femoral central line placed in the ER. Patient was started on broad-spectrum antibiotics with Zosyn, vancomycin, started on bicarb drip, D10 drip, Solu-Medrol. Patient had mild improvement of hyperkalemia after hyperkalemia cocktail, potassium again elevated 05/07 in the morning at 6.7, another hyperkalemia protocol given with IV insulin, calcium gluconate, bicarb pushes x 2. Despite continuous IV hydration, bicarb drip, patient continued to be profoundly acidotic with carbon dioxide trending down from 9-6, ABG showed pH of 7.14, lactic acid up to 9.7. Nephrology consulted. IR consulted for tunneled catheter placement, plan for HD 05/08 ICU consulted. Awaiting for an ICU bed 05/08 hemoglobin noted at 6.8, 1 unit of PRBC ordered, Eliquis was previously decreased to 2.5 twice daily, now on hold.. Acidosis improved, carbon dioxide 18, anion gap 15, creatinine trending down to 2.75 now, potassium normal, CK trending down, lactic acid peaked at 12.8 overnight, now 7.6. Pertinent Imaging: Abdominal x-ray after catheter placement, expected location of the IVC, no acute process in the abdomen. Subjective: 05/08/2024: She was seen and examined in the ER, she feels fatigued but better today, more awake, denies abdominal pain, chest pain 05/09/2024: Patient seen and examined at bedside. She was responsive to commands, alert and oriented. Denies any abdominal or chest pain, feels fatigued. 05/10/2024: Patient seen evaluated bedside. Patient awake and oriented and responding to commands. States that she has pain all over and would like to go back on some type of pain regiment. Patient states she has been feeling anxious especially prior to getting hemodialysis. 05/11/2024: Patient seen evaluated bedside. Patient awake and oriented responding to commands. Reports difficulty voiding. Hemodialysis scheduled for today. 05/12/2024: Patient seen and evaluated bedside. Patient awake and oriented and responding to commands. Reports difficulty voiding. Still mentions of upper abdominal pain. 05/13/2024: Patient seen and evaluated at bedside. Pt awake and oriented. Spoke with patient and family regarding possible surgical intervention regarding pancreatitis. Patient still oliguric, reports of epigastric pain. Pertinent positives and negatives as discussed above, a complete review of systems was performed and all other systems are negative. Vitals Signs Reviewed. Physical Exam: General: Ill-appearing, lethargic, obese Derm: warm, dry, intact Head: atraumatic, normocephalic, symmetric Eyes: EOMI, anicteric sclera Mouth: no lip lesion, mucus membranes moist Cardiovascular: S1 S2 reg, no murmur, rubs, or gallops Lungs: CTA bilateral, no rhonchi, no rales, no accessory muscle use Abdominal: soft, tender to palpataion middle to right upper quandrant, no appreciable organomegaly Extremities: livedo reticularis bilateral tight resolved, bilateral lower extremity venous chronic stasis discoloration, swelling: Tunneled catheter, CVC present in bilateral femoral veins, anasarca Neuro: Alert, Oriented, CNII-XII grossly intact Psych: appropriate affect Data Reviewed Today: Pertinent Labs: WBC 8.1, Hgb 7.7, platelet 156, sodium 132, potassium 3.8, BUN 20, creatinine 1.84, calcium 6 point, AST 216, ALT 288, lipase 1950 Pertinent imaging: Abd/Pelvis CT w/contrast displaying acute pancreatitis Assessment and Plan: Patient is a 69-year-old female with a past medical history of uncontrolled insulin-dependent diabetes, DVT on Eliquis, hyperlipidemia, hypertension, history of ESBL infection (11/05/23), history of MRSA infection (2016) admitted for acute renal failure likely secondary to hypotension, ATN. #. Acute renal failure likely secondary to profound hypotension, possible ATN, on dialysis #. Acute on chronic macrocytic anemia, status post 1 unit PRBC #. Anemia of chronic disease #. Anasarca #Hypocalcemia Follow-up urine and blood cultures, no growth to date - pt oliguric Strict I's and O's Cardiac monitoring Placed on [place] 5325 PO q6hr PRN Status post IV Lasix on 05/08/2024 with no significant change in urine output Nephrology following, note read. Hemo-dialysis today. If no improvement consider kidney biopsy. IV desmopressin acetate 22 mcg IVPB once by nephrology Follow-up BMP to monitor kidney function - Repeat CBC tomorrow Hemodialysis Thursday Based on low complement levels and newly diagnosed acute pancreatitis IgG sub class 1-4 was ordered to rule out IgG4 related disease - B12 and folated ordered #. Leukocytosis with neutrophilic bandemia #. Transaminitis WBC 11.2, neutrophil 9.1, band neutrophils 3% AST and ALT levels trending down Gallbladder ultrasound displaying no evidence for acute process. there is cholelithiasis, hepatic steatosis, small ascites Continue with Zosyn #. Acute Pancreatitis gallstone pancreatitis vs autoimmune vs high triglycerides vs medication induced - Abd/Pelvis CT displaying acute pancreatitis - lipase 1950 IgG4-RD is a consideration given kidney dysfunction + pancreatitis, sublevels ordered and pending - lipid profile ordered - spoke with nephrology, wants to c/w fluid management normal saline 75 cc/HR - patient NPO - general surgery consulted #. Acute rhabdomyolysis, resolving Creatine kinase 1367 => 1024 => 730 => 529 Continue with normal saline at 75 cc/hr #. History of DVT Continue with home Eliquis of 5 mg PO twice daily Chronic: #. insulin-dependent type 2 diabetes mellitus Hold metformin, Accu-Cheks, monitor for hypoglycemia # Hypothyroidism: Continue Synthroid #. Hyperlipidemia holding statins #. GERD: Continue Protonix Resolved: Hypokalemia Acute hyperkalemia Distributive shock, septic versus adrenal crisis Anion gap lactic acidosis inpatient patient on metformin: Continue to hold metformin Acute hypoglycemia in a patient with uncontrolled insulin-dependent diabetes Anxiety: was given seroquel 12.5 mg PO once, no recent complaints since. will manage on as needed basis F: Normal saline at 75 cc/hour E: P electrolytes as needed N: Consistent carbohydrate diet DVT ppx: Eliquis 5 mg PO BID GI PPx Protonix 40 mg IV daily Code status: Full code Anticipated discharge place: pending clinical course Anticipated discharge time: pending clinical course Patient is severely ill. Prognosis is guarded. I have seen and evaluated the patient today. Discussed with the resident and agree with the residents finding and plan as documented in the resident's note. Changes highlighted in blue font. Objective - Vital Signs Vital signs: Vital Signs Temp 97.7 F 05/13/24 04:00 Pulse 82 05/13/24 04:00 Resp 16 05/13/24 04:00 BP 159/76 05/13/24 04:00 Pulse Ox 99 05/13/24 04:00 FiO2 Intake & Output 05/12/24 05/12/24 05/13/24 06:59 18:59 06:59 Intake Total 3947 030 1916 Output Total 1600 Balance -989 742 2212 Intake: IV 700 1400 Piperacillin-Tazobactam 3 700 200 .375 gm In Sodium Chloride 0.9% 100 ml @ 25 mls/hr IVPB Q12HR PREM Rx #:[id number] Sodium Chloride 0.9% 1, 1200 000 ml @ 75 mls/hr IV . [id number] [facility] Rx#:[id number] Oral 250 Hemodialysis 400 Output: Hemodialysis 1000 Hemodialysis Net Amount 600 Other: Voiding Method Indwelling Catheter Indwelling Catheter Indwelling Catheter # Bowel Movements 1 - Labs CBC & Chem 7: 05/13/24 07:04 05/13/24 06:56 Labs: Abnormal Lab Results - Last 24 Hours (Table) 05/12/24 05/12/24 05/12/24 Range/Units 07:44 07:44 07:44 RBC 2.23 L (3.80-5.40) m/uL Hgb 7.7 L (11.4-16.0) gm/dL Hct 23.1 L (34.0-46.0) % MCV 103.8 H (80.0-100.0) fL RDW 17.4 H (11.5-15.5) % Sodium 132 L (137-145) mmol/L BUN 20 H (7-17) mg/dL Creatinine 1.84 H (0.52-1.04) mg/dL Glucose 109 H (74-99) mg/dL POC Glucose (mg/dL) (70-110) mg/dL Calcium 6.8 L (8.4-10.2) mg/dL AST 216 H (14-36) U/L ALT 288 H (4-34) U/L Creatine Kinase 730 H (30-135) U/L Total Protein 4.1 L (6.3-8.2) g/dL Albumin 2.3 L (3.5-5.0) g/dL Lipase 1950 H (23-300) U/L 05/12/24 05/12/24 Range/Units 12:23 16:56 RBC (3.80-5.40) m/uL Hgb (11.4-16.0) gm/dL Hct (34.0-46.0) % MCV (80.0-100.0) fL RDW (11.5-15.5) % Sodium (137-145) mmol/L BUN (7-17) mg/dL Creatinine (0.52-1.04) mg/dL Glucose (74-99) mg/dL POC Glucose (mg/dL) 134 H 116 H (70-110) mg/dL Calcium (8.4-10.2) mg/dL AST (14-36) U/L ALT (4-34) U/L Creatine Kinase (30-135) U/L Total Protein (6.3-8.2) g/dL Albumin (3.5-5.0) g/dL Lipase (23-300) U/L Microbiology - Last 24 Hours (Table) 05/07/24 12:00 Blood Culture - Final Blood
--- NOTE | 2024-05-13 15:23 | P.GSCN ---
History of Present Illness Consult date: 05/13/24 History of present illness: CHIEF COMPLAINT: Hypoglycemia and weakness HISTORY OF PRESENT ILLNESS: This is a 69-year-old female who presented to hospital with hypoglycemia, weakness and altered mental status. Patient was found to be in acute kidney injury on admission. She has been started on hemodialysis during this admission. She is scheduled for a hemodialysis catheter placement tomorrow with vascular surgery. She is currently getting hemodialysis today. She has been having mid abdominal pain for about 3 days. She denies any nausea or vomiting. Gallbladder ultrasound was ordered and did show evidence of gallstones. A CT scan abdomen pelvis showed evidence of mild pancreatitis. Her lipase was elevated as well as mildly elevated LFTs total bilirubin was normal. Patient denies any prior history of pancreatitis or gallstones. Surgical history does include a hysterectomy. Patient denies any history of alcohol use. She is on Eliquis for history of DVT. Last dose was this morning. PAST MEDICAL HISTORY: See below PAST SURGICAL HISTORY: See below MEDICATIONS: See below ALLERGIES: See below SOCIAL HISTORY: No illicit drug use. REVIEW OF SYSTEMS: CONSTITUTIONAL: Denies fever or chills. HEENT: Denies blurred vision, vision changes, or eye pain. Denies hemoptysis CARDIOVASCULAR: Denies chest pain or pressure. RESPIRATORY: No shortness of breath. GASTROINTESTINAL: See HPI for pertinent findings HEMATOLOGIC: Denies bleeding disorders. GENITOURINARY: Denies any blood in urine or increased urinary frequency. SKIN: Denies pruitis. Denies rash. PHYSICAL EXAM: VITAL SIGNS: Reviewed GENERAL: Well-developed in no acute distress. HEENT: No sclera icterus. Extraocular movements grossly intact. Moist buccal mucosa. Head is atraumatic, normocephalic. No nasal drainage. ABDOMEN: Soft. Obese. Nondistended. mild tenderness mid abdomen. no RUQ tenderness. No rebound or guarding NEUROLOGIC: Alert and oriented. Cranial nerves II through XII grossly intact. LABORATORY DATA: WBC 7.5 Hgb 7.1 platelets 165 Sodium 133 potassium 3.8 creatinine 2.47 Total bilirubin 0.5 AST 151 ALT 240 alk phos 160 Lipase 1950 IMAGING: Gallbladder ultrasound reports no evidence for acute process. Cholelithiasis. Hepatic steatosis. Small ascites. Small right pleural effusion CT scan abdomen pelvis reports clinical correlation recommended for acute pancreatitis. Ascites. Diffuse subcutaneous edema. ASSESSMENT: 1. Gallstone pancreatitis 2. Acute kidney injury requiring hemodialysis 3. Anemia PLAN: -Continue to monitor -Keep patient n.p.o. -Repeat LFTs and lipase in a.m. -Hold Eliquis for possible surgical intervention -Continue IV fluids -Further recommendations forthcoming per surgeon Physician Lens Assistant note has been reviewed by physician. Signing provider agrees with the documented findings, assessment, and plan of care. Past Medical History Past Medical History: Diabetes Mellitus, Deep Vein Thrombosis (DVT), Hyperlipidemia, Hypertension, Osteoarthritis (OA), Thyroid Disorder Additional Past Medical History / Comment(s): DVT L Leg History of Any Multi-Drug Resistant Organisms: ESBL, MRSA Year Discovered:: 11/05/23 - ESBL; 01/27/17 - MRSA MDRO Source:: ESBL - URINE; MRSA - blood Past Surgical History: Hysterectomy, Orthopedic Surgery Additional Past Surgical History / Comment(s): Rectocele;hand,ankle and knee s urg.; Past Anesthesia/Blood Transfusion Reactions: No Reported Reaction Past Psychological History: No Psychological Hx Reported Past Alcohol Use History: Rare Past Drug Use History: None Reported - Past Family History Brother(s) Family Medical History: Deep Vein Thrombosis (DVT) Mother Family Medical History: Coronary Artery Disease (CAD) Father Family Medical History: Diabetes Mellitus Medications and Allergies Home Medications Medication Instructions Recorded Confirmed Type Apixaban [Eliquis] 5 mg PO BID 04/24/21 05/06/24 History Folic Acid 1 mg PO DAILY 04/24/21 05/06/24 History HYDROcodone/APAP 10-325MG [[place] 1 tab PO Q6HR PRN 04/24/21 05/06/24 History 10-325] metFORMIN HCL [Glucophage] 1,000 mg PO BID 04/24/21 05/06/24 History Insulin Glargine,Hum.rec.anlog 24 - 30 unit SQ BID 05/12/21 05/06/24 History [Lantus Solostar Pen] Metoprolol Tartrate [Lopressor] 25 mg PO DIRECTED 05/12/21 05/06/24 History DULoxetine HCL [Cymbalta] 30 mg PO DAILY 05/06/24 05/06/24 History Insulin Aspart (Niacinamide) See Protocol SQ DIRECTED 05/06/24 05/06/24 History [Fiasp 100 Unit/ml Flextouch Pen] Levothyroxine Sodium [Synthroid] 112 mcg PO DAILY 05/06/24 05/06/24 History Metabolism Support Vitamin B-12 500 mcg PO DAILY 05/06/24 05/06/24 History 500mcg Rosuvastatin Calcium [Crestor] 40 mg PO HS 05/06/24 05/06/24 History Semaglutide [Ozempic] 1 mg SQ MO 05/06/24 05/06/24 History amLODIPine BESYLATE/BENAZEPRIL 1 cap PO DAILY 05/06/24 05/06/24 History [Lotrel 10-20 mg Capsule] Allergies Allergy/AdvReac Type Severity Reaction Status Date / Time cefazolin Allergy Severe Rash/Hives Verified 05/06/24 18:03 Surgical - Exam Vital Signs Temp Pulse Resp BP Pulse Ox 97.4 F L 79 19 95/47 96 05/06/24 13:54 05/06/24 13:54 05/06/24 13:54 05/06/24 13:54 05/06/24 13:54 Results - Labs 05/13/24 07:04 05/13/24 06:56 Abnormal Lab Results - Last 24 Hours (Table) 05/12/24 05/12/24 05/12/24 Range/Units 07:44 12:23 16:56 RBC (3.80-5.40) m/uL Hgb (11.4-16.0) gm/dL Hct (34.0-46.0) % MCV (80.0-100.0) fL RDW (11.5-15.5) % Lymphocytes # (1.0-4.8) k/uL Sodium (137-145) mmol/L BUN (7-17) mg/dL Creatinine (0.52-1.04) mg/dL POC Glucose (mg/dL) 134 H 116 H (70-110) mg/dL Calcium (8.4-10.2) mg/dL AST (14-36) U/L ALT (4-34) U/L Creatine Kinase (30-135) U/L Total Protein (6.3-8.2) g/dL Albumin (3.5-5.0) g/dL Lipase 1950 H (23-300) U/L 05/13/24 05/13/24 Range/Units 06:56 07:04 RBC 2.05 L (3.80-5.40) m/uL Hgb 7.1 L (11.4-16.0) gm/dL Hct 21.4 L (34.0-46.0) % MCV 104.3 H (80.0-100.0) fL RDW 17.5 H (11.5-15.5) % Lymphocytes # 0.9 L (1.0-4.8) k/uL Sodium 133 L (137-145) mmol/L BUN 27 H (7-17) mg/dL Creatinine 2.47 H (0.52-1.04) mg/dL POC Glucose (mg/dL) (70-110) mg/dL Calcium 6.6 L (8.4-10.2) mg/dL AST 151 H (14-36) U/L ALT 240 H (4-34) U/L Creatine Kinase 529 H (30-135) U/L Total Protein 3.8 L (6.3-8.2) g/dL Albumin 2.2 L (3.5-5.0) g/dL Lipase (23-300) U/L Microbiology - Last 24 Hours (Table) 05/07/24 12:00 Blood Culture - Final Blood Diabetes panel 05/13/24 Range/Units 06:56 Sodium 133 L (137-145) mmol/L Potassium 3.8 (3.5-5.1) mmol/L Chloride 101 (98-107) mmol/L Carbon Dioxide 27 (22-30) mmol/L BUN 27 H (7-17) mg/dL Creatinine 2.47 H (0.52-1.04) mg/dL Glucose 80 (74-99) mg/dL Calcium 6.6 L (8.4-10.2) mg/dL AST 151 H (14-36) U/L ALT 240 H (4-34) U/L Alkaline Phosphatase 106 (38-126) U/L Total Protein 3.8 L (6.3-8.2) g/dL Albumin 2.2 L (3.5-5.0) g/dL Calcium panel 05/13/24 Range/Units 06:56 Calcium 6.6 L (8.4-10.2) mg/dL Albumin 2.2 L (3.5-5.0) g/dL Pituitary panel 05/13/24 Range/Units 06:56 Sodium 133 L (137-145) mmol/L Potassium 3.8 (3.5-5.1) mmol/L Chloride 101 (98-107) mmol/L Carbon Dioxide 27 (22-30) mmol/L BUN 27 H (7-17) mg/dL Creatinine 2.47 H (0.52-1.04) mg/dL Glucose 80 (74-99) mg/dL Calcium 6.6 L (8.4-10.2) mg/dL Adrenal panel 05/13/24 Range/Units 06:56 Sodium 133 L (137-145) mmol/L Potassium 3.8 (3.5-5.1) mmol/L Chloride 101 (98-107) mmol/L Carbon Dioxide 27 (22-30) mmol/L BUN 27 H (7-17) mg/dL Creatinine 2.47 H (0.52-1.04) mg/dL Glucose 80 (74-99) mg/dL Calcium 6.6 L (8.4-10.2) mg/dL Total Bilirubin 0.5 (0.2-1.3) mg/dL AST 151 H (14-36) U/L ALT 240 H (4-34) U/L Alkaline Phosphatase 106 (38-126) U/L Total Protein 3.8 L (6.3-8.2) g/dL Albumin 2.2 L (3.5-5.0) g/dL
--- NOTE | 2024-05-13 15:38 | P.PN ---
Subjective Progress Note Date: 05/13/24 Principal diagnosis: Hypovolemic shock and acute kidney injury with severe lactic acidosis secondary to metformin ,associated with dehydration. On 05/07/2024, the patient is being seen in consultation in the emergency department for hypotension and severe lactic acidosis. The patient is known to have diabetes mellitus type 2, hypertension hyperlipidemia and previous history of a DVT for which she has been maintained on anticoagulation. She is also known to have a chronic right hemidiaphragmatic paralysis. The patient came into the hospital feeling generalized weakness and she also had diminished level of consciousness and she was having episodes of hypoglycemia. Notably, the patient has been receiving a combination of medication for diabetes which included Lantus insulin, Ozempic, metformin and short acting insulin for blood sugars controlled. The patient was started on D5 water and subsequent blood work showed severe metabolic derangements. The patient's serum bicarb was at 8. The patient's lactic acid level was initially at 8.5 and potassium level was at 6.1. She did have an anion gap of 21 at the time of the admission. At the same time, her calcium level was 8, 9 she had a rhabdomyolysis with a CPK of 2190, troponins were negative, procalcitonin level was at 0.8. UA showed +2 proteins, and acetone was negative. The white cell count was at 12.6 with a hemoglobin of 8.8 and a platelet count of 353. The patient received a total of 4.5 L of IV fluids in the emergency department and subsequently she was started on pressors and currently norepinephrine is running at 0.16 mcg/kg/min. Triple-lumen catheter was inserted. Subsequently, the patient was switched to a bicarb infusion at rate of 125 cc an hour. Most recent labs showed ongoing acidosis with a serum bicarb of 6, lactic acid remains at 9.1. There has been some modest improvement in the kidney function as initial creatinine was at 4.09 and the creatinine is down to 3.81. Potassium level this morning was at 6.7. I gave additional bicarb, D50 insulin and calcium to this patient and informed nephrology. She may need potentially dialysis as the patient may have severe lactic acidosis secondary to metformin. She is being monitored very closely. Blood gas was also done that showed a pH of 7.14 with a pCO2 of 24 and pO2 of 97 this was an FiO2 of 26%. Ultrasound of the kidneys shows no evidence of any hydronephrosis. CAT scan abdomen chest abdomen and pelvis shows right hemidiaphragmatic elevation, otherwise no other significant abnormalities. Despite all this abnormalities, the patient seems to be arousable and communicating. She seems to be appropriate. She is on 1 and half liters of oxygen by nasal cannula with a pulse ox of 95%. On 05/08/2024, the patient is being seen for a follow-up. She presented to us with severe metabolic and lactic acidosis. She also had an acute kidney injury. This is attributed to severe intravascular volume depletion and metformin induced lactic acidosis. The patient underwent hemodialysis yesterday. An emergent dialysis was performed as the patient was not producing much of urine output and the patient was also hyperkalemic along with severe metabolic acidosis. She also had severe lactic acidosis. On today's evaluation, the patient is feeling better. Hemodialysis was completed and a second session to be done today. Labs have improved compared to yesterday. Sodium is at 133, potassium is down to 4, bicarb is at 18, BUN is 40 with a creatinine of 2.7. Lactic acid level has been downtrending and it peaked at 12.8 and dropped down to 5.8. Awake and alert and communicating. Remains on a bicarb infusion which is running at 75 cc an hour. She is also on norepinephrine at 0.13 mcg/kg/min. She has a right forearm femoral hemodialysis catheter and left femoral triple- lumen catheter. Hemoglobin dropped down to 6.8 and the patient is going to receive a unit of packed RBC. She is on 2 L of oxygen by nasal cannula. Awake and alert and communicating. Patient was seen today on 05/09/2024, remains in the ICU, on 2 L nasal cannula, off norepinephrine for the last 12 hours, patient is on hemodialysis last hemodialysis was 05/07. Fluid is at 75 cc/h 0.9 normal saline, patient is lethargic but alert, able to answer questions, urine output remains marginal between 10 to 20 cc/h remains on Zosyn. Patient is steadily improving, her labs showed relatively normal CBC, electrolytes are normal bicarb is 27 BUN is 38 creatinine 2.84 procalcitonin level on admission was 0.83, blood cultures remain negative Seen today on 05/10/2024 remains in the ICU, however she is an overflow in the ICU. Patient is hemodynamically stable, temp is 98.4, blood pressure 133/72 and O2 sat is 96% on 2 L nasal cannula. IV fluid is running at 75 cc/h/0.9 normal saline patient remains on Zosyn and on Eliquis I have discontinued her Solu- Cortef which was started empirically upon admission when she came in with hypotension. Mentation is still slow but seems to be fairly appropriate. She knew where she was and she knew the name of the president. Labs from today showed relatively normal CBC except for hemoglobin of 7.5 low potassium of 3.1 BUN is 26 creatinine 2.27, Steadily improving, patient came in with a potassium of 4.09 Patient was seen today on 05/13/2024, patient continues to do fairly well, on 2 L nasal cannula, being followed by nephrology for hemodialysis. She is hemodynamically stable, O2 sat is 98% on 2 L she has no active pulmonary symptoms. WBC count is 7.5 hemoglobin 7.1 electrolytes are normal however her BUN is 27 creatinine 2.47, liver enzymes were noted to be elevated with AST of 151 ALT of 240 and continues to have CPK slightly elevated at 529. CT of abdomen and pelvis done yesterday, raised the possibility of acute pancreatitis and ascites with diffuse subcutaneous edema. Hand surgery was consulted, ultrasound of the gallbladder showed evidence of gallstones, and felt to have most likely gallstone pancreatitis, recommending observation for now, in the meantime the patient is still undergoing hemodialysis as per nephrology for her acute kidney injury. Patient is kept n.p.o. for now because of her pancreatitis. Surgery is on the case. Objective - Vital Signs Vital signs: Vital Signs Temp 97.9 F 05/13/24 14:23 Pulse 83 05/13/24 14:23 Resp 18 05/13/24 14:23 BP 156/72 05/13/24 14:23 Pulse Ox 98 05/13/24 11:40 FiO2 Intake & Output 05/12/24 05/13/24 05/13/24 18:59 06:59 18:59 Intake Total 250 1400 400 Output Total 2400 Balance 250 1400 -2000 Weight 103.4 kg Intake: IV 1400 Piperacillin-Tazobactam 3 200 .375 gm In Sodium Chloride 0.9% 100 ml @ 25 mls/hr IVPB Q12HR [facility] Rx #:[id number] Sodium Chloride 0.9% 1, 1200 000 ml @ 75 mls/hr IV . [id number] [facility] Rx#:[id number] Oral 250 Hemodialysis 400 Output: Hemodialysis 1400 Hemodialysis Net Amount 1000 Other: Voiding Method Indwelling Catheter Indwelling Catheter Indwelling Catheter # Bowel Movements 1 - Exam General: [Revealed 69-year-old female on 2 L nasal cannula, in no distress, family at bedside. Derm: No rashes, skin is warm and dry Head: Atraumatic, normocephalic Eyes: EOMI, nonicteric, no neck masses no JVD Mouth: Moist mucous membranes Cardiovascular: Normal S1-S2, no S3 gallop Lungs: Clear bilaterally no rhonchi no wheezes Abdominal: Soft minimal tenderness in mid abdomen, no rebound no guarding. Ext: Chronic venous stasis changes noted in the lower extremities otherwise unremarkable Neuro: Slow but seems to be appropriate and no gross focal neurologic deficit Psych: Normal mood, affect, and slow mental status - Labs CBC & Chem 7: 05/13/24 07:04 05/13/24 06:56 Labs: Abnormal Lab Results - Last 24 Hours (Table) 05/12/24 05/12/24 05/13/24 Range/Units 07:44 16:56 06:56 RBC (3.80-5.40) m/uL Hgb (11.4-16.0) gm/dL Hct (34.0-46.0) % MCV (80.0-100.0) fL RDW (11.5-15.5) % Lymphocytes # (1.0-4.8) k/uL Sodium 133 L (137-145) mmol/L BUN 27 H (7-17) mg/dL Creatinine 2.47 H (0.52-1.04) mg/dL POC Glucose (mg/dL) 116 H (70-110) mg/dL Calcium 6.6 L (8.4-10.2) mg/dL AST 151 H (14-36) U/L ALT 240 H (4-34) U/L Creatine Kinase 529 H (30-135) U/L Total Protein 3.8 L (6.3-8.2) g/dL Albumin 2.2 L (3.5-5.0) g/dL Lipase 1950 H (23-300) U/L 05/13/24 Range/Units 07:04 RBC 2.05 L (3.80-5.40) m/uL Hgb 7.1 L (11.4-16.0) gm/dL Hct 21.4 L (34.0-46.0) % MCV 104.3 H (80.0-100.0) fL RDW 17.5 H (11.5-15.5) % Lymphocytes # 0.9 L (1.0-4.8) k/uL Sodium (137-145) mmol/L BUN (7-17) mg/dL Creatinine (0.52-1.04) mg/dL POC Glucose (mg/dL) (70-110) mg/dL Calcium (8.4-10.2) mg/dL AST (14-36) U/L ALT (4-34) U/L Creatine Kinase (30-135) U/L Total Protein (6.3-8.2) g/dL Albumin (3.5-5.0) g/dL Lipase (23-300) U/L Microbiology - Last 24 Hours (Table) 05/07/24 12:00 Blood Culture - Final Blood Assessment and Plan Assessment: Impression:Acute Hypovolemic shock Acute kidney injury, patient is requiring hemodialysis, nephrology is following Acute lactic acidosis, related to dehydration and metformin patient improved with dialysis, Acute hyperkalemia secondary to acute kidney injury and metabolic acidosis, recovered Acute rhabdomyolysis, improving Acute on chronic anemia Type 2 diabetes, patient has been on Ozempic insulin Lantus and metformin which is presently off Chronic right hemidiaphragm paralysis Acute metabolic encephalopathy History of hypertension Dyslipidemia Previous history of DVT, on anticoagulation therapy on outpatient basis History of underlying COPD Hypothyroidism Anion gap metabolic acidosis resolved this is most likely to the combination of dehydration and metformin Acute gallstone pancreatitis Recommendation: Continue present supportive care measures Continue IV fluids Continue n.p.o. General Surgery is following her pancreatitis Nephrology is following her renal status., On hemodialysis Continue Eliquis 2.5 mg twice daily Continue empiric antibiotics including Zosyn Continue to monitor electrolytes and daily CBC Will continue to follow Time with Patient: Less than 30
[2024-05-13 15:40] LABS: Chol/HDL Ratio 2.61 Ratio; LDL Cholesterol,Calculated 27.6 mg/dL (0.0-131.0)
[2024-05-13 16:23] LABS: Vitamin B12 >3600.0 pg/mL (200.0-944.0)
[2024-05-13 16:34] LABS: Glucose,Whole Blood 74 mg/dL (70-110)
[2024-05-13 20:19] LABS: Glucose,Whole Blood 125 mg/dL (70-110)
[2024-05-14 06:29] LABS: Glucose,Whole Blood 92 mg/dL (70-110)
[2024-05-14 07:34] LABS: Anisocytosis Slight; Basophils % (A) 0 %; Eosinophils # (A) 0.3 k/uL (0-0.7); Eosinophils % (A) 4 %; HCT 22.8 % (34.0-46.0); HGB 7.6 gm/dL (11.4-16.0); Lymphocytes # (A) 0.8 k/uL (1.0-4.8); Lymphocytes % (A) 10 %; MCH 34.6 pg (25.0-35.0); MCHC 33.2 g/dL (31.0-37.0); MCV 104.2 fL (80.0-100.0); Macrocytosis Moderate; Mean Platelet Volume 8.8; Monocytes # (A) 0.6 k/uL (0-1.0); Monocytes % (A) 7 %; Neutrophils # (A) 6.5 k/uL (1.3-7.7); Neutrophils % (A) 77 %; Platelet Count 162 k/uL (150-450); RBC 2.19 m/uL (3.80-5.40); RDW 17.3 % (11.5-15.5); WBC 8.5 k/uL (3.8-10.6)
[2024-05-14 08:03] LABS: ALT 199 U/L (4-34); AST 122 U/L (14-36); African American GFR (CKD) 33 (>60 ml/min/1.73 sqM); Albumin 2.3 g/dL (3.5-5.0); Alkaline Phosphatase 110 U/L (38-126); Anion Gap 3 mmol/L; Blood Urea Nitrogen 16 mg/dL (7-17); Calcium 6.7 mg/dL (8.4-10.2); Carbon Dioxide 30 mmol/L (22-30); Chloride 100 mmol/L (98-107); Glucose 80 mg/dL (74-99); Lipase 712 U/L (23-300); Non-African American GFR(CKD) 29 (>60 ml/min/1.73 sqM); Potassium 3.7 mmol/L (3.5-5.1); Sodium 133 mmol/L (137-145); Total Bilirubin 0.5 mg/dL (0.2-1.3); Total Protein 3.9 g/dL (6.3-8.2)
[2024-05-14] MEDS: IV FLUID CONTINUATION 150 ML IV ONE (08:06)
[2024-05-14] MEDS: LIDOCAINE 1% INJ 10MG/ML (20 ML MDV) SQ ONE ×3 (08:20→15:50)
[2024-05-14] MEDS: IOPAMIDOL-370 100ML BTL INJ ONE (08:37)
--- NOTE | 2024-05-14 09:22 | IR ---
EXAMINATION TYPE: IR cvc insert central tunneled DATE OF EXAM: 05/14/2024 9:06 AM COMPARISON: Pre Operative Images if available both CT/MRI or plain film CLINICAL INDICATION: Female, 69 years old with history of RENAL FAILURE; TECHNIQUE: IR cvc insert central tunneled, multiple fluoroscopic images provided for procedure. Total fluoroscopy time: 3.3 seconds Total submitted images to PACS: 29 DAP: 429.24 mGym2 Gycm2 uGym2 cGycm2 or equivalent. FINDINGS: IMPRESSION: 1. Report was generated for administrative purposes only. 2. Please see the operative/procedural note for further details. [facility], , 05/14/2024 9:20 AM
--- NOTE | 2024-05-14 10:00 | XR ---
EXAMINATION TYPE: XR chest 1V portable DATE OF EXAM: 05/14/2024 9:44 AM COMPARISON: Chest radiographs from 05/06/2024 CLINICAL INDICATION: Female, 69 years old with history of HEMODIALYSIS CATHETER PLACEMENT; [facility] TECHNIQUE: XR chest 1V portable Frontal view of the chest. FINDINGS: Lungs/Pleura: No evidence of focal consolidation or pneumothorax. Blunting of the costophrenic angles is present. Pulmonary vascularity: Pulmonary vascular congestion. Heart/mediastinum: Cardiomediastinal silhouette is partially obscured due to overlying and adjacent o pacities. Musculoskeletal: No acute osseous pathology. There is fixation hardware in the lower cervical spine. Other findings: None Lines/Tubes: Right internal jugular central venous catheter with distal tip at the cavoatrial junction. IMPRESSION: Right central venous catheter with tip at the superior vena cava to the junction. Bilateral pleural effusions and pulmonary edema. [facility], , 05/14/2024 9:58 AM
--- NOTE | 2024-05-14 10:05 | OP ---
OPERATIVE REPORT DATE OF SERVICE : 05/14/2024 PREOPERATIVE DIAGNOSIS: Acute chronic renal failure. PROCEDURE PERFORMED: Ultrasound-guided 23 cm dialysis catheter, right jugular approach. DESCRIPTION OF PROCEDURE: The patient was brought to the lab support service tech. Right side of the neck and chest was prepped and drapes applied in a sterile manner. 1% lidocaine was infiltrated in the neck and chest area. Ultrasound-guided micropuncture introduced into the right jugular vein. Micropuncture guidewire was passed. Then, we placed a 6-Urdu sheath on the top of the guidewire, then created a tunnel. Through the tunnel, we brought 23 cm dialysis catheter. The neck was closed with Vicryl and skin was closed with 3-0 nylon. Heparin was given through the catheter. Pressure dressing applied. The patient tolerated the procedure well. This patient has a temporary catheter in the right femoral vein. The patient is on Eliquis. We will hold Eliquis for another day and then we will remove the catheter. MMODL / IJN: [id number] / MTDD
--- NOTE | 2024-05-14 10:09 | P.PN ---
Subjective Patient is seen in follow-up for acute kidney injury. Started on hemodialysis May 07, 2024. Permacath placed this morning. Oozing from catheter site. On clear liquid diet due to pancreatitis. On IV fluids. Remains oliguric. Denies chest pain or shortness of breath. No problems with dialysis yesterday. Vital signs are stable. General: Resting in bed. HEENT: On nasal cannula. LUNGS: No audible rhonchi or wheezes. HEART: Rate and Rhythm are regular. ABDOMEN: No distention. EXTREMITITES: 1+ edema. Chronic changes noted. Objective - Vital Signs Vital signs: Vital Signs Temp 98.3 F 05/14/24 08:04 Pulse 88 05/14/24 08:04 Resp 22 05/14/24 08:04 BP 150/67 05/14/24 08:04 Pulse Ox 98 05/14/24 08:04 FiO2 Intake & Output 05/13/24 05/14/24 05/14/24 18:59 06:59 18:59 Intake Total 1400 700 100 Output Total 2800 Balance -1400 700 100 Weight 103.4 kg 102.5 kg Intake: IV 1000 700 100 Invasive Line 4 20 Invasive Line 6 5 Piperacillin-Tazobactam 3 100 100 .375 gm In Sodium Chloride 0.9% 100 ml @ 25 mls/hr IVPB Q12HR [facility] Rx #:[id number] Sodium Chloride 0.9% 1, 900 600 000 ml @ 75 mls/hr IV . [id number] [facility] Rx#:[id number] Hemodialysis 400 Output: Urine 400 Hemodialysis 1400 Hemodialysis Net Amount 1000 Other: Voiding Method Indwelling Catheter Indwelling Catheter Indwelling Catheter - Labs CBC & Chem 7: 05/14/24 06:57 05/14/24 06:57 Labs: Abnormal Lab Results - Last 24 Hours (Table) 05/13/24 05/13/24 05/13/24 Range/Units 07:04 10:37 10:37 RBC (3.80-5.40) m/uL Hgb (11.4-16.0) gm/dL Hct (34.0-46.0) % MCV (80.0-100.0) fL RDW (11.5-15.5) % Lymphocytes # (1.0-4.8) k/uL Sodium (137-145) mmol/L Creatinine (0.52-1.04) mg/dL POC Glucose (mg/dL) (70-110) mg/dL Calcium (8.4-10.2) mg/dL AST (14-36) U/L ALT (4-34) U/L Total Protein (6.3-8.2) g/dL Albumin (3.5-5.0) g/dL HDL Cholesterol 33.00 L (40.00-60.00) mg/dL Lipase (23-300) U/L Vitamin B12 >3600.0 H (200.0-944.0) pg/mL PTH Intact 282.0 H (14.0-72.0) pg/mL 05/13/24 05/14/24 05/14/24 Range/Units 20:18 06:57 06:57 RBC 2.19 L (3.80-5.40) m/uL Hgb 7.6 L (11.4-16.0) gm/dL Hct 22.8 L (34.0-46.0) % MCV 104.2 H (80.0-100.0) fL RDW 17.3 H (11.5-15.5) % Lymphocytes # 0.8 L (1.0-4.8) k/uL Sodium 133 L (137-145) mmol/L Creatinine 1.81 H (0.52-1.04) mg/dL POC Glucose (mg/dL) 125 H (70-110) mg/dL Calcium 6.7 L (8.4-10.2) mg/dL AST 122 H (14-36) U/L ALT 199 H (4-34) U/L Total Protein 3.9 L (6.3-8.2) g/dL Albumin 2.3 L (3.5-5.0) g/dL HDL Cholesterol (40.00-60.00) mg/dL Lipase 712 H (23-300) U/L Vitamin B12 (200.0-944.0) pg/mL PTH Intact (14.0-72.0) pg/mL Assessment and Plan Plan: Assessment: 1. Acute kidney injury secondary to ATN secondary to shock. Creatinine 0.8 in September 2023 and elevated at 4.09 this admission. Oliguric. Started on hemodialysis May 07, 2024. No hydronephrosis noted on imaging. UA with 2+ protein and no blood. 2. Anion gap metabolic acidosis secondary to acute kidney injury, lactic acidosis and use of metformin. Improved with bicarb drip and dialysis. Urine ketones and serum acetone negative. 3. Acute blood loss anemia status post blood transfusion this admission. Platelet count normal. LDH high, haptoglobin not low. Iron replete. On Aranesp. 4. Chronic kidney disease stage I with baseline creatinine near 0.8 from September 2023. She has underlying diabetic kidney disease with proteinuria. 5. Hyperkalemia secondary to acute kidney injury and acidosis. Resolved. Then potassium low and was replaced. 6. Mild rhabdomyolysis. CK levels have been trending down. 7. Hypocalcemia secondary to acute kidney injury. Replaced. Corrected calcium in the normal range. PTH 282 and vitamin D level 36. 8. Fluid overload. 9. Acute pancreatitis. Plan: Hemodialysis Thursday. Will maintain on Thursday schedule. Serologies negative except for low C3. Hep-Lock IV fluids. Repeat IV Lasix 80 mg daily. Monitor for renal recovery. Phosphorus level 3.1 dated May 12, 2024. Discussed kidney biopsy for definitive diagnosis - will be scheduled outpatient as no interventional radiologist available till June 07. IV DDAVP x 1 dose today.
[2024-05-14] MEDS: FUROSEMIDE 10 MG/ML 10 ML VIAL IV STA (10:21)
[2024-05-14] MEDS: DESMOPRESSIN ACETATE 20 MCG in SODIUM CHLORIDE 0.9% 50 ML IVPB ONE (11:01)
[2024-05-14 11:42] LABS: Glucose,Whole Blood 87 mg/dL (70-110)
--- NOTE | 2024-05-14 11:59 | P.PN ---
Subjective Progress Note Date: 05/14/24 Hospital Course: A 69-year-old female with past medical history of difficult to control diabetes, history of DVT on Eliquis, HLD, HTN, osteoarthritis, hypothyroidism, history of hypoxic respiratory failure due to pneumonia requiring supplemental oxygen use, history of MSSA sepsis 2017, MRSA bacteremia 2016, recent UTI treated with outpatient antibiotics, who presented to the ER complaining of generalized weakness, low blood sugar, nausea, vomiting. Patient was throwing up for several days, multiple times a day, stopped on 05/05, no associated abdominal pain, bowel habit changes, fevers, chills. Patient states that she went down on her Lantus while throwing up (she is usually on 24 in the AM and 30 p.m., was taking 18 and 28 accordingly)., She is also on metformin 1000 twice daily, Ozempic 1 mg, She did have recent UTI that was treated as outpatient with oral antibiotics, she is not sure what type of antibiotic and for how long she was on it. She noted urinary frequency. ED course: Patient's blood pressure was 102/44 on admission, heart rate in 80s, afebrile initially. EKG showed QTc of 434, junctional rhythm. Chest x-ray with no acute process. CT of the abdomen and pelvis showed chronic elevation of the right hemidiaphragm and no source of infection. Kidney bladder ultrasound showed anechoic bladder, no hydronephrosis, no nephrolithiasis and masses. Lab work significant for leukocytosis 12.6, anemia hemoglobin 8.8, macrocytosis, sodium 136, potassium 5.6, bicarb 9, BUN 68, creatinine 4.09, lactate 8.3, phosphorus 5.8, ALT elevated 124 AST 119, CK 2190, trended down to 2020. Negative troponin, CRP negative, UA positive for proteinuria and hematuria, viral panel negative. Sepsis protocol was initiated, blood in the urine cultures obtained, fluid bolus given, received hyperkalemia cocktail with calcium gluconate, insulin, Lokelma. Patient has been having profound hypotension that did not respond to fluid bolus and was started on Levophed, femoral central line placed in the ER. Patient was started on broad-spectrum antibiotics with Zosyn, vancomycin, started on bicarb drip, D10 drip, Solu-Medrol. Patient had mild improvement of hyperkalemia after hyperkalemia cocktail, potassium again elevated 05/07 in the morning at 6.7, another hyperkalemia protocol given with IV insulin, calcium gluconate, bicarb pushes x 2. Despite continuous IV hydration, bicarb drip, patient continued to be profoundly acidotic with carbon dioxide trending down from 9-6, ABG showed pH of 7.14, lactic acid up to 9.7. Nephrology consulted. IR consulted for tunneled catheter placement, plan for HD 05/08 ICU consulted. Awaiting for an ICU bed 05/08 hemoglobin noted at 6.8, 1 unit of PRBC ordered, Eliquis was previously decreased to 2.5 twice daily, now on hold.. Acidosis improved, carbon dioxide 18, anion gap 15, creatinine trending down to 2.75 now, potassium normal, CK trending down, lactic acid peaked at 12.8 overnight, now 7.6. Pertinent Imaging: Abdominal x-ray after catheter placement, expected location of the IVC, no acute process in the abdomen. Subjective: 05/08/2024: She was seen and examined in the ER, she feels fatigued but better today, more awake, denies abdominal pain, chest pain 05/09/2024: Patient seen and examined at bedside. She was responsive to commands, alert and oriented. Denies any abdominal or chest pain, feels fatigued. 05/10/2024: Patient seen evaluated bedside. Patient awake and oriented and responding to commands. States that she has pain all over and would like to go back on some type of pain regiment. Patient states she has been feeling anxious especially prior to getting hemodialysis. 05/11/2024: Patient seen evaluated bedside. Patient awake and oriented responding to commands. Reports difficulty voiding. Hemodialysis scheduled for today. 05/12/2024: Patient seen and evaluated bedside. Patient awake and oriented and responding to commands. Reports difficulty voiding. Still mentions of upper abdominal pain. 05/13/2024: Patient seen and evaluated at bedside. Pt awake and oriented. Spoke with patient and family regarding possible surgical intervention regarding pancreatitis. Patient still oliguric, reports of epigastric pain. 05/14/2024: Patient seen and evaluated at bedside. Pertinent positives and negatives as discussed above, a complete review of systems was performed and all other systems are negative. Vitals Signs Reviewed. Physical Exam: General: Ill-appearing, lethargic, obese Derm: warm, dry, intact Head: atraumatic, normocephalic, symmetric Eyes: EOMI, anicteric sclera Mouth: no lip lesion, mucus membranes moist Cardiovascular: S1 S2 reg, no murmur, rubs, or gallops Lungs: CTA bilateral, no rhonchi, no rales, no accessory muscle use Abdominal: soft, tender to palpataion middle to right upper quandrant, no appreciable organomegaly Extremities: livedo reticularis bilateral tight resolved, bilateral lower extremity venous chronic stasis discoloration, swelling: Tunneled catheter, CVC present in bilateral femoral veins, anasarca Neuro: Alert, Oriented, CNII-XII grossly intact Psych: appropriate affect Data Reviewed Today: Pertinent Labs: Pertinent imaging: Assessment and Plan: Patient is a 69-year-old female with a past medical history of uncontrolled insulin-dependent diabetes, DVT on Eliquis, hyperlipidemia, hypertension, history of ESBL infection (11/05/23), history of MRSA infection (2016) admitted for acute renal failure likely secondary to hypotension, ATN. #. Acute renal failure likely secondary to profound hypotension, possible ATN, on dialysis #. Acute on chronic macrocytic anemia, status post 1 unit PRBC #. Anemia of chronic disease #. Anasarca #. Hypocalcemia #. Fluid overload Follow-up urine and blood cultures, no growth to date - pt oliguric Strict I's and O's Cardiac monitoring Placed on [place] 5325 PO q6hr PRN Status post IV Lasix on 05/08/2024 with no significant change in urine output Follow-up BMP to monitor kidney function - Repeat CBC tomorrow Hemodialysis Thursday Based on low complement levels and newly diagnosed acute pancreatitis IgG subclass 1-4 was ordered to rule out IgG4 related disease - B12 >3600, folate pending Holding fluids due to fluid overload, given 80 mg IV Lasix once by nephrology Nephrology following, note read. Kidney biopsy outpatient for definitive diagnosis, 1 dose of IV DDAVP given today Vascular surgery following. Status/post permacath placement, holding Eliquis #. Leukocytosis with neutrophilic bandemia, resolving #. Transaminitis WBC 11.2, neutrophil 9.1, band neutrophils 3% AST and ALT levels trending down Gallbladder ultrasound displaying no evidence for acute process. there is cholelithiasis, hepatic steatosis, small ascites Continue with Zosyn #. Acute Pancreatitis gallstone pancreatitis vs autoimmune vs medication induced - Abd/Pelvis CT displaying acute pancreatitis - lipase 1950, repeat lipase 712 IgG4-RD is a consideration given kidney dysfunction + pancreatitis, sublevels ordered and pending - lipid profile: 127 triglycerides wnl - spoke with nephrology, wants to c/w fluid management normal saline 75 cc/HR - patient NPO - general surgery following. Keep patient NPO and hold Eliquis for possible surgical intervention Awaiting recommendation from surgeon, likely to be handled outpatient #. Acute rhabdomyolysis, resolving Creatine kinase 1367 => 1024 => 730 => 529 Holding fluids due to volume overload #. History of DVT Eliquis of 5 mg PO twice daily on hold for possible surgical intervention Chronic: #. insulin-dependent type 2 diabetes mellitus Hold metformin, Accu-Cheks, monitor for hypoglycemia # Hypothyroidism: Continue Synthroid #. Hyperlipidemia holding statins #. GERD: Continue Protonix Resolved: Hypokalemia Acute hyperkalemia Distributive shock, septic versus adrenal crisis Anion gap lactic acidosis inpatient patient on metformin: Continue to hold metformin Acute hypoglycemia in a patient with uncontrolled insulin-dependent diabetes Anxiety: was given seroquel 12.5 mg PO once, no recent complaints since. will manage on as needed basis F: N/A E: Replete electrolytes as needed N: Consistent carbohydrate diet DVT ppx: Eliquis 5 mg PO BID GI PPx Protonix 40 mg IV daily Code status: Full code Anticipated discharge place: pending clinical course Anticipated discharge time: pending clinical course Patient is severely ill. Prognosis is guarded. I have seen and evaluated the patient today. Discussed with the resident and agree with the residents finding and plan as documented in the resident's note. Changes highlighted in blue font. Objective - Vital Signs Vital signs: Vital Signs Temp 98 F 05/14/24 04:00 Pulse 89 05/14/24 04:00 Resp 18 05/14/24 04:00 BP 154/75 05/14/24 04:00 Pulse Ox 98 05/14/24 04:00 FiO2 Intake & Output 05/13/24 05/13/24 05/14/24 06:59 18:59 06:59 Intake Total 1400 1400 700 Output Total 2800 Balance 1400 -1400 700 Weight 103.4 kg 102.5 kg Intake: IV 1400 1000 700 Piperacillin-Tazobactam 3 200 100 100 .375 gm In Sodium Chloride 0.9% 100 ml @ 25 mls/hr IVPB Q12HR PREM Rx #:[id number] Sodium Chloride 0.9% 1, 1200 900 600 000 ml @ 75 mls/hr IV . [id number] PREM Rx#:[id number] Hemodialysis 400 Output: Urine 400 Hemodialysis 1400 Hemodialysis Net Amount 1000 Other: Voiding Method Indwelling Catheter Indwelling Catheter Indwelling Catheter - Labs CBC & Chem 7: 05/14/24 06:57 05/14/24 06:57 Labs: Abnormal Lab Results - Last 24 Hours (Table) 05/13/24 05/13/24 05/13/24 Range/Units 06:56 07:04 07:04 RBC 2.05 L (3.80-5.40) m/uL Hgb 7.1 L (11.4-16.0) gm/dL Hct 21.4 L (34.0-46.0) % MCV 104.3 H (80.0-100.0) fL RDW 17.5 H (11.5-15.5) % Lymphocytes # 0.9 L (1.0-4.8) k/uL Sodium 133 L (137-145) mmol/L BUN 27 H (7-17) mg/dL Creatinine 2.47 H (0.52-1.04) mg/dL POC Glucose (mg/dL) (70-110) mg/dL Calcium 6.6 L (8.4-10.2) mg/dL AST 151 H (14-36) U/L ALT 240 H (4-34) U/L Creatine Kinase 529 H (30-135) U/L Total Protein 3.8 L (6.3-8.2) g/dL Albumin 2.2 L (3.5-5.0) g/dL HDL Cholesterol 33.00 L (40.00-60.00) mg/dL Vitamin B12 (200.0-944.0) pg/mL PTH Intact (14.0-72.0) pg/mL 05/13/24 05/13/24 05/13/24 Range/Units 10:37 10:37 20:18 RBC (3.80-5.40) m/uL Hgb (11.4-16.0) gm/dL Hct (34.0-46.0) % MCV (80.0-100.0) fL RDW (11.5-15.5) % Lymphocytes # (1.0-4.8) k/uL Sodium (137-145) mmol/L BUN (7-17) mg/dL Creatinine (0.52-1.04) mg/dL POC Glucose (mg/dL) 125 H (70-110) mg/dL Calcium (8.4-10.2) mg/dL AST (14-36) U/L ALT (4-34) U/L Creatine Kinase (30-135) U/L Total Protein (6.3-8.2) g/dL Albumin (3.5-5.0) g/dL HDL Cholesterol (40.00-60.00) mg/dL Vitamin B12 >3600.0 H (200.0-944.0) pg/mL PTH Intact 282.0 H (14.0-72.0) pg/mL
--- NOTE | 2024-05-14 12:27 | P.PN ---
Subjective Progress Note Date: 05/14/24 Principal diagnosis: Hypovolemic shock and acute kidney injury with severe lactic acidosis secondary to metformin ,associated with dehydration. On 05/07/2024, the patient is being seen in consultation in the emergency department for hypotension and severe lactic acidosis. The patient is known to have diabetes mellitus type 2, hypertension hyperlipidemia and previous history of a DVT for which she has been maintained on anticoagulation. She is also known to have a chronic right hemidiaphragmatic paralysis. The patient came into the hospital feeling generalized weakness and she also had diminished level of consciousness and she was having episodes of hypoglycemia. Notably, the patient has been receiving a combination of medication for diabetes which included Lantus insulin, Ozempic, metformin and short acting insulin for blood sugars controlled. The patient was started on D5 water and subsequent blood work showed severe metabolic derangements. The patient's serum bicarb was at 8. The patient's lactic acid level was initially at 8.5 and potassium level was at 6.1. She did have an anion gap of 21 at the time of the admission. At the same time, her calcium level was 8, 9 she had a rhabdomyolysis with a CPK of 2190, troponins were negative, procalcitonin level was at 0.8. UA showed +2 proteins, and acetone was negative. The white cell count was at 12.6 with a hemoglobin of 8.8 and a platelet count of 353. The patient received a total of 4.5 L of IV fluids in the emergency department and subsequently she was started on pressors and currently norepinephrine is running at 0.16 mcg/kg/min. Triple-lumen catheter was inserted. Subsequently, the patient was switched to a bicarb infusion at rate of 125 cc an hour. Most recent labs showed ongoing acidosis with a serum bicarb of 6, lactic acid remains at 9.1. There has been some modest improvement in the kidney function as initial creatinine was at 4.09 and the creatinine is down to 3.81. Potassium level this morning was at 6.7. I gave additional bicarb, D50 insulin and calcium to this patient and informed nephrology. She may need potentially dialysis as the patient may have severe lactic acidosis secondary to metformin. She is being monitored very closely. Blood gas was also done that showed a pH of 7.14 with a pCO2 of 24 and pO2 of 97 this was an FiO2 of 26%. Ultrasound of the kidneys shows no evidence of any hydronephrosis. CAT scan abdomen chest abdomen and pelvis shows right hemidiaphragmatic elevation, otherwise no other significant abnormalities. Despite all this abnormalities, the patient seems to be arousable and communicating. She seems to be appropriate. She is on 1 and half liters of oxygen by nasal cannula with a pulse ox of 95%. On 05/08/2024, the patient is being seen for a follow-up. She presented to us with severe metabolic and lactic acidosis. She also had an acute kidney injury. This is attributed to severe intravascular volume depletion and metformin induced lactic acidosis. The patient underwent hemodialysis yesterday. An emergent dialysis was performed as the patient was not producing much of urine output and the patient was also hyperkalemic along with severe metabolic acidosis. She also had severe lactic acidosis. On today's evaluation, the patient is feeling better. Hemodialysis was completed and a second session to be done today. Labs have improved compared to yesterday. Sodium is at 133, potassium is down to 4, bicarb is at 18, BUN is 40 with a creatinine of 2.7. Lactic acid level has been downtrending and it peaked at 12.8 and dropped down to 5.8. Awake and alert and communicating. Remains on a bicarb infusion which is running at 75 cc an hour. She is also on norepinephrine at 0.13 mcg/kg/min. She has a right forearm femoral hemodialysis catheter and left femoral triple- lumen catheter. Hemoglobin dropped down to 6.8 and the patient is going to receive a unit of packed RBC. She is on 2 L of oxygen by nasal cannula. Awake and alert and communicating. Patient was seen today on 05/09/2024, remains in the ICU, on 2 L nasal cannula, off norepinephrine for the last 12 hours, patient is on hemodialysis last hemodialysis was 05/07. Fluid is at 75 cc/h 0.9 normal saline, patient is lethargic but alert, able to answer questions, urine output remains marginal between 10 to 20 cc/h remains on Zosyn. Patient is steadily improving, her labs showed relatively normal CBC, electrolytes are normal bicarb is 27 BUN is 38 creatinine 2.84 procalcitonin level on admission was 0.83, blood cultures remain negative Seen today on 05/10/2024 remains in the ICU, however she is an overflow in the ICU. Patient is hemodynamically stable, temp is 98.4, blood pressure 133/72 and O2 sat is 96% on 2 L nasal cannula. IV fluid is running at 75 cc/h/0.9 normal saline patient remains on Zosyn and on Eliquis I have discontinued her Solu- Cortef which was started empirically upon admission when she came in with hypotension. Mentation is still slow but seems to be fairly appropriate. She knew where she was and she knew the name of the president. Labs from today showed relatively normal CBC except for hemoglobin of 7.5 low potassium of 3.1 BUN is 26 creatinine 2.27, Steadily improving, patient came in with a potassium of 4.09 Patient was seen today on 05/13/2024, patient continues to do fairly well, on 2 L nasal cannula, being followed by nephrology for hemodialysis. She is hemodynamically stable, O2 sat is 98% on 2 L she has no active pulmonary symptoms. WBC count is 7.5 hemoglobin 7.1 electrolytes are normal however her BUN is 27 creatinine 2.47, liver enzymes were noted to be elevated with AST of 151 ALT of 240 and continues to have CPK slightly elevated at 529. CT of abdomen and pelvis done yesterday, raised the possibility of acute pancreatitis and ascites with diffuse subcutaneous edema. Hand surgery was consulted, ultrasound of the gallbladder showed evidence of gallstones, and felt to have most likely gallstone pancreatitis, recommending observation for now, in the meantime the patient is still undergoing hemodialysis as per nephrology for her acute kidney injury. Patient is kept n.p.o. for now because of her pancreatitis. Surgery is on the case. Patient was seen today on 05/14/2024, on 2 L nasal cannula, patient had dialysis catheter placed by vascular surgery today in the right subclavian area., Patient denies any shortness of breath or cough or wheezing, obviously the pat ient will need more hemodialysis her labs today show WBC count of 8.5 hemoglobin 7.6 electrolytes are normal BUN is 16 creatinine 1.81, patient remains oliguric Objective - Vital Signs Vital signs: Vital Signs Temp 98.3 F 05/14/24 08:04 Pulse 88 05/14/24 08:04 Resp 22 05/14/24 08:04 BP 150/67 05/14/24 08:04 Pulse Ox 98 05/14/24 08:04 FiO2 Intake & Output 05/13/24 05/14/24 05/14/24 18:59 06:59 18:59 Intake Total 1400 700 100 Output Total 2800 Balance -1400 700 100 Weight 103.4 kg 102.5 kg Intake: IV 1000 700 100 Invasive Line 4 20 Invasive Line 6 5 Piperacillin-Tazobactam 3 100 100 .375 gm In Sodium Chloride 0.9% 100 ml @ 25 mls/hr IVPB Q12HR PREM Rx #:[id number] Sodium Chloride 0.9% 1, 900 600 000 ml @ 75 mls/hr IV . [id number] PREM Rx#:[id number] Hemodialysis 400 Output: Urine 400 Hemodialysis 1400 Hemodialysis Net Amount 1000 Other: Voiding Method Indwelling Catheter Indwelling Catheter Indwelling Catheter - Exam General: [Revealed 69-year-old female on 2 L nasal cannula, in no distress, family at bedside. Derm: No rashes, skin is warm and dry Head: Atraumatic, normocephalic Eyes: EOMI, nonicteric, no neck masses no JVD Mouth: Moist mucous membranes Cardiovascular: Normal S1-S2, no S3 gallop Chest: Significant amount of dressing noted in the area of the permacath placement in the right subclavian area with some oozing noted. Lungs: Clear bilaterally no rhonchi no wheezes Abdominal: Soft minimal tenderness in mid abdomen, no rebound no guarding. Ext: Chronic venous stasis changes noted in the lower extremities otherwise unremarkable Neuro: Slow but seems to be appropriate and no gross focal neurologic deficit Psych: Normal mood, affect, and slow mental status - Labs CBC & Chem 7: 05/14/24 06:57 05/14/24 06:57 Labs: Abnormal Lab Results - Last 24 Hours (Table) 05/13/24 05/13/24 05/13/24 Range/Units 07:04 10:37 10:37 RBC (3.80-5.40) m/uL Hgb (11.4-16.0) gm/dL Hct (34.0-46.0) % MCV (80.0-100.0) fL RDW (11.5-15.5) % Lymphocytes # (1.0-4.8) k/uL Sodium (137-145) mmol/L Creatinine (0.52-1.04) mg/dL POC Glucose (mg/dL) (70-110) mg/dL Calcium (8.4-10.2) mg/dL AST (14-36) U/L ALT (4-34) U/L Total Protein (6.3-8.2) g/dL Albumin (3.5-5.0) g/dL HDL Cholesterol 33.00 L (40.00-60.00) mg/dL Lipase (23-300) U/L Vitamin B12 >3600.0 H (200.0-944.0) pg/mL PTH Intact 282.0 H (14.0-72.0) pg/mL 05/13/24 05/14/24 05/14/24 Range/Units 20:18 06:57 06:57 RBC 2.19 L (3.80-5.40) m/uL Hgb 7.6 L (11.4-16.0) gm/dL Hct 22.8 L (34.0-46.0) % MCV 104.2 H (80.0-100.0) fL RDW 17.3 H (11.5-15.5) % Lymphocytes # 0.8 L (1.0-4.8) k/uL Sodium 133 L (137-145) mmol/L Creatinine 1.81 H (0.52-1.04) mg/dL POC Glucose (mg/dL) 125 H (70-110) mg/dL Calcium 6.7 L (8.4-10.2) mg/dL AST 122 H (14-36) U/L ALT 199 H (4-34) U/L Total Protein 3.9 L (6.3-8.2) g/dL Albumin 2.3 L (3.5-5.0) g/dL HDL Cholesterol (40.00-60.00) mg/dL Lipase 712 H (23-300) U/L Vitamin B12 (200.0-944.0) pg/mL PTH Intact (14.0-72.0) pg/mL Assessment and Plan Assessment: Impression:Acute Hypovolemic shock Acute kidney injury, patient is requiring hemodialysis, nephrology is following, patient will need further hemodialysis as she remains oliguric Acute lactic acidosis, related to dehydration and metformin patient improved with dialysis, Acute hyperkalemia secondary to acute kidney injury and metabolic acidosis, recovered Acute rhabdomyolysis, improving Acute on chronic anemia Type 2 diabetes, patient has been on Ozempic insulin Lantus and metformin which is presently off Chronic right hemidiaphragm paralysis Acute metabolic encephalopathy History of hypertension Dyslipidemia Previous history of DVT, on anticoagulation therapy on outpatient basis History of underlying COPD Hypothyroidism Anion gap metabolic acidosis resolved this is most likely to the combination of dehydration and metformin Acute gallstone pancreatitis Status post permacath placement on 05/14/2024 by vascular surgery Recommendation: Mary is presently on hold Patient received DDAVP by nephrology today Patient remains on Aranesp Continue hemodialysis as felt necessary by nephrology Continue present supportive care measures Continue IV fluids General Surgery is following her pancreatitis Nephrology is following her renal status., On hemodialysis Continue empiric antibiotics including Zosyn Continue to monitor electrolytes and daily CBC Will continue to follow Time with Patient: Less than 30
--- NOTE | 2024-05-14 13:51 | P.PN ---
Progress Note - Text Progress Note Date: 05/14/24 Patient having permacath placed at time of evaluation. Will reevaluate.
[2024-05-14 15:37] LABS: Anisocytosis Slight; Basophils % (A) 0 %; Eosinophils # (A) 0.2 k/uL (0-0.7); Eosinophils % (A) 2 %; Lymphocytes # (A) 1.1 k/uL (1.0-4.8); Lymphocytes % (A) 10 %; MCH 34.6 pg (25.0-35.0); MCHC 33.4 g/dL (31.0-37.0); MCV 103.6 fL (80.0-100.0); Macrocytosis Moderate; Mean Platelet Volume 9.4; Monocytes # (A) 0.6 k/uL (0-1.0); Monocytes % (A) 6 %; Neutrophils # (A) 8.3 k/uL (1.3-7.7); Neutrophils % (A) 79 %; Platelet Count 174 k/uL (150-450); RBC 1.92 m/uL (3.80-5.40); RDW 17.4 % (11.5-15.5); WBC 10.6 k/uL (3.8-10.6)
[2024-05-14 15:42] LABS: HGB 6.6 gm/dL (11.4-16.0)
[2024-05-14 15:43] LABS: HCT 19.8 % (34.0-46.0)
[2024-05-14 16:43] LABS: Glucose,Whole Blood 107 mg/dL (70-110)
[2024-05-14 20:39] LABS: Glucose,Whole Blood 127 mg/dL (70-110)
[2024-05-14] MEDS: FUROSEMIDE 10 MG/ML 10 ML VIAL IV PRN (23:01)
[2024-05-14 23:31] LABS: Anisocytosis Slight; Basophils % (A) 0 %; Eosinophils # (A) 0.2 k/uL (0-0.7); Eosinophils % (A) 2 %; Lymphocytes # (A) 0.9 k/uL (1.0-4.8); Lymphocytes % (A) 9 %; MCH 32.5 pg (25.0-35.0); MCHC 32.7 g/dL (31.0-37.0); MCV 99.4 fL (80.0-100.0); Macrocytosis Slight; Mean Platelet Volume 9.2; Monocytes # (A) 0.7 k/uL (0-1.0); Monocytes % (A) 7 %; Neutrophils # (A) 8.1 k/uL (1.3-7.7); Neutrophils % (A) 80 %; Platelet Count 168 k/uL (150-450); RBC 2.52 m/uL (3.80-5.40); RDW 17.8 % (11.5-15.5); WBC 10.2 k/uL (3.8-10.6)
[2024-05-14 23:56] LABS: HGB 8.2 gm/dL (11.4-16.0)
[2024-05-15 06:31] LABS: Glucose,Whole Blood 132 mg/dL (70-110)
[2024-05-15 07:27] LABS: Anisocytosis Slight; Basophils % (A) 0 %; Eosinophils # (A) 0.3 k/uL (0-0.7); Eosinophils % (A) 3 %; HCT 23.8 % (34.0-46.0); Lymphocytes # (A) 1.1 k/uL (1.0-4.8); Lymphocytes % (A) 11 %; MCH 33.4 pg (25.0-35.0); MCHC 33.5 g/dL (31.0-37.0); MCV 99.8 fL (80.0-100.0); Macrocytosis Moderate; Mean Platelet Volume 9.3; Monocytes # (A) 0.7 k/uL (0-1.0); Monocytes % (A) 7 %; Neutrophils # (A) 7.9 k/uL (1.3-7.7); Neutrophils % (A) 77 %; Platelet Count 176 k/uL (150-450); RBC 2.39 m/uL (3.80-5.40); RDW 18.1 % (11.5-15.5); WBC 10.3 k/uL (3.8-10.6)
[2024-05-15 07:42] LABS: ALT 155 U/L (4-34); AST 81 U/L (14-36); African American GFR (CKD) 25 (>60 ml/min/1.73 sqM); Albumin 2.2 g/dL (3.5-5.0); Alkaline Phosphatase 98 U/L (38-126); Anion Gap 8 mmol/L; Blood Urea Nitrogen 22 mg/dL (7-17); Calcium 6.9 mg/dL (8.4-10.2); Carbon Dioxide 25 mmol/L (22-30); Chloride 98 mmol/L (98-107); Glucose 120 mg/dL (74-99); Magnesium 1.8 mg/dL (1.6-2.3); Non-African American GFR(CKD) 22 (>60 ml/min/1.73 sqM); Potassium 3.6 mmol/L (3.5-5.1); Sodium 131 mmol/L (137-145); Total Bilirubin 0.5 mg/dL (0.2-1.3); Total Protein 3.9 g/dL (6.3-8.2)
--- NOTE | 2024-05-15 10:43 | P.PN ---
Subjective Patient is seen in follow-up for acute kidney injury. Started on hemodialysis May 07, 2024. Permacath placed May 14, 2024. Oozing from permacath site improved. Status post blood transfusion and IV DDAVP. Remains oliguric. On renal diet. Vital signs are stable. General: Resting in bed. HEENT: On nasal cannula. LUNGS: No audible rhonchi or wheezes. HEART: Rate and Rhythm are regular. ABDOMEN: No distention. EXTREMITITES: 1+ edema. Chronic changes noted. Objective - Vital Signs Vital signs: Vital Signs Temp 97.6 F 05/15/24 07:57 Pulse 91 05/15/24 07:57 Resp 20 05/15/24 07:57 BP 163/77 05/15/24 07:57 Pulse Ox 97 05/15/24 07:57 FiO2 Intake & Output 05/14/24 05/15/24 05/15/24 18:59 06:59 18:59 Intake Total 420 410 255 Output Total 225 250 Balance 195 160 255 Weight 105 kg Intake: IV 370 100 255 .9@10 120 Invasive Line 4 40 35 Invasive Line 6 5 Piperacillin-Tazobactam 3 100 100 100 .375 gm In Sodium Chloride 0.9% 100 ml @ 25 mls/hr IVPB Q12HR [facility] Rx #:[id number] Sodium Chloride 0.9% 1, 150 000 ml @ 75 mls/hr IV . [id number] [facility] Rx#:[id number] Intake, IV Titration 50 Amount Desmopressin Acetate 20 50 mcg In Sodium Chloride 0. 9% 50 ml @ 200 mls/hr IVPB ONCE ONE Rx#: [id number] Blood Product 0 310 Rc As-1 Unit 0 [id number] Output: Urine 225 250 Other: Voiding Method Indwelling Catheter Indwelling Catheter Indwelling Catheter - Labs CBC & Chem 7: 05/15/24 06:50 05/15/24 06:50 Labs: Abnormal Lab Results - Last 24 Hours (Table) 05/14/24 05/14/24 05/14/24 Range/Units 15:22 16:27 20:37 RBC 1.92 L (3.80-5.40) m/uL Hgb 6.6 L* (11.4-16.0) gm/dL Hct 19.8 L* (34.0-46.0) % MCV 103.6 H (80.0-100.0) fL RDW 17.4 H (11.5-15.5) % Neutrophils # 8.3 H (1.3-7.7) k/uL Lymphocytes # (1.0-4.8) k/uL Sodium (137-145) mmol/L BUN (7-17) mg/dL Creatinine (0.52-1.04) mg/dL Glucose (74-99) mg/dL POC Glucose (mg/dL) 127 H (70-110) mg/dL Calcium (8.4-10.2) mg/dL AST (14-36) U/L ALT (4-34) U/L Total Protein (6.3-8.2) g/dL Albumin (3.5-5.0) g/dL Crossmatch See Detail 05/14/24 05/15/24 05/15/24 Range/Units 23:04 06:29 06:50 RBC 2.52 L 2.39 L (3.80-5.40) m/uL Hgb 8.2 L D 8.0 L (11.4-16.0) gm/dL Hct 25.0 L 23.8 L (34.0-46.0) % MCV (80.0-100.0) fL RDW 17.8 H 18.1 H (11.5-15.5) % Neutrophils # 8.1 H 7.9 H (1.3-7.7) k/uL Lymphocytes # 0.9 L (1.0-4.8) k/uL Sodium (137-145) mmol/L BUN (7-17) mg/dL Creatinine (0.52-1.04) mg/dL Glucose (74-99) mg/dL POC Glucose (mg/dL) 132 H (70-110) mg/dL Calcium (8.4-10.2) mg/dL AST (14-36) U/L ALT (4-34) U/L Total Protein (6.3-8.2) g/dL Albumin (3.5-5.0) g/dL Crossmatch 05/15/24 Range/Units 06:50 RBC (3.80-5.40) m/uL Hgb (11.4-16.0) gm/dL Hct (34.0-46.0) % MCV (80.0-100.0) fL RDW (11.5-15.5) % Neutrophils # (1.3-7.7) k/uL Lymphocytes # (1.0-4.8) k/uL Sodium 131 L (137-145) mmol/L BUN 22 H (7-17) mg/dL Creatinine 2.25 H (0.52-1.04) mg/dL Glucose 120 H (74-99) mg/dL POC Glucose (mg/dL) (70-110) mg/dL Calcium 6.9 L (8.4-10.2) mg/dL AST 81 H (14-36) U/L ALT 155 H (4-34) U/L Total Protein 3.9 L (6.3-8.2) g/dL Albumin 2.2 L (3.5-5.0) g/dL Crossmatch Assessment and Plan Plan: Assessment: 1. Acute kidney injury secondary to ATN secondary to shock. Creatinine 0.8 in September 2023 and elevated at 4.09 this admission. Oliguric. Started on hemodialysis May 07, 2024. No hydronephrosis noted on imaging. UA with 2+ protein and no blood. 2. Anion gap metabolic acidosis secondary to acute kidney injury, lactic acidosis and use of metformin. Improved with bicarb drip and dialysis. Urine ketones and serum acetone negative. 3. Acute blood loss anemia status post blood transfusions this admission. Platelet count normal. LDH high, haptoglobin not low. Iron replete. On Aranesp. 4. Chronic kidney disease stage I with baseline creatinine near 0.8 from September 2023. She has underlying diabetic kidney disease with proteinuria. 5. Hyperkalemia secondary to acute kidney injury and acidosis. Resolved. Then potassium low and was replaced. 6. Mild rhabdomyolysis. CK levels have been trending down. 7. Hypocalcemia secondary to acute kidney injury. Replaced. Corrected calcium in the normal range. PTH 282 and vitamin D level 36. 8. Fluid overload. 9. Acute pancreatitis. Plan: Hemodialysis Thursday. Will maintain on Thursday schedule. Challenge ultrafiltration. Serologies negative except for low C3. Add IV Lasix 80 mg once daily. Add calcitriol 3 times a week. Monitor for renal recovery. Phosphorus level 3.1 dated May 12, 2024. Discussed kidney biopsy for definitive diagnosis - will be scheduled outpatient as no interventional radiologist available till June 07.
[2024-05-15 11:19] LABS: Glucose,Whole Blood 174 mg/dL (70-110)
[2024-05-15] MEDS: FUROSEMIDE 10 MG/ML 10 ML VIAL IV SCH (11:59)
--- NOTE | 2024-05-15 13:01 | P.PN ---
Subjective Progress Note Date: 05/15/24 Principal diagnosis: Hypovolemic shock and acute kidney injury with severe lactic acidosis secondary to metformin ,associated with dehydration. On 05/07/2024, the patient is being seen in consultation in the emergency department for hypotension and severe lactic acidosis. The patient is known to have diabetes mellitus type 2, hypertension hyperlipidemia and previous history of a DVT for which she has been maintained on anticoagulation. She is also known to have a chronic right hemidiaphragmatic paralysis. The patient came into the hospital feeling generalized weakness and she also had diminished level of consciousness and she was having episodes of hypoglycemia. Notably, the patient has been receiving a combination of medication for diabetes which included Lantus insulin, Ozempic, metformin and short acting insulin for blood sugars controlled. The patient was started on D5 water and subsequent blood work showed severe metabolic derangements. The patient's serum bicarb was at 8. The patient's lactic acid level was initially at 8.5 and potassium level was at 6.1. She did have an anion gap of 21 at the time of the admission. At the same time, her calcium level was 8, 9 she had a rhabdomyolysis with a CPK of 2190, troponins were negative, procalcitonin level was at 0.8. UA showed +2 proteins, and acetone was negative. The white cell count was at 12.6 with a hemoglobin of 8.8 and a platelet count of 353. The patient received a total of 4.5 L of IV fluids in the emergency department and subsequently she was started on pressors and currently norepinephrine is running at 0.16 mcg/kg/min. Triple-lumen catheter was inserted. Subsequently, the patient was switched to a bicarb infusion at rate of 125 cc an hour. Most recent labs showed ongoing acidosis with a serum bicarb of 6, lactic acid remains at 9.1. There has been some modest improvement in the kidney function as initial creatinine was at 4.09 and the creatinine is down to 3.81. Potassium level this morning was at 6.7. I gave additional bicarb, D50 insulin and calcium to this patient and informed nephrology. She may need potentially dialysis as the patient may have severe lactic acidosis secondary to metformin. She is being monitored very closely. Blood gas was also done that showed a pH of 7.14 with a pCO2 of 24 and pO2 of 97 this was an FiO2 of 26%. Ultrasound of the kidneys shows no evidence of any hydronephrosis. CAT scan abdomen chest abdomen and pelvis shows right hemidiaphragmatic elevation, otherwise no other significant abnormalities. Despite all this abnormalities, the patient seems to be arousable and communicating. She seems to be appropriate. She is on 1 and half liters of oxygen by nasal cannula with a pulse ox of 95%. On 05/08/2024, the patient is being seen for a follow-up. She presented to us with severe metabolic and lactic acidosis. She also had an acute kidney injury. This is attributed to severe intravascular volume depletion and metformin induced lactic acidosis. The patient underwent hemodialysis yesterday. An emergent dialysis was performed as the patient was not producing much of urine output and the patient was also hyperkalemic along with severe metabolic acidosis. She also had severe lactic acidosis. On today's evaluation, the patient is feeling better. Hemodialysis was completed and a second session to be done today. Labs have improved compared to yesterday. Sodium is at 133, potassium is down to 4, bicarb is at 18, BUN is 40 with a creatinine of 2.7. Lactic acid level has been downtrending and it peaked at 12.8 and dropped down to 5.8. Awake and alert and communicating. Remains on a bicarb infusion which is running at 75 cc an hour. She is also on norepinephrine at 0.13 mcg/kg/min. She has a right forearm femoral hemodialysis catheter and left femoral triple- lumen catheter. Hemoglobin dropped down to 6.8 and the patient is going to receive a unit of packed RBC. She is on 2 L of oxygen by nasal cannula. Awake and alert and communicating. Patient was seen today on 05/09/2024, remains in the ICU, on 2 L nasal cannula, off norepinephrine for the last 12 hours, patient is on hemodialysis last hemodialysis was 05/07. Fluid is at 75 cc/h 0.9 normal saline, patient is lethargic but alert, able to answer questions, urine output remains marginal between 10 to 20 cc/h remains on Zosyn. Patient is steadily improving, her labs showed relatively normal CBC, electrolytes are normal bicarb is 27 BUN is 38 creatinine 2.84 procalcitonin level on admission was 0.83, blood cultures remain negative Seen today on 05/10/2024 remains in the ICU, however she is an overflow in the ICU. Patient is hemodynamically stable, temp is 98.4, blood pressure 133/72 and O2 sat is 96% on 2 L nasal cannula. IV fluid is running at 75 cc/h/0.9 normal saline patient remains on Zosyn and on Eliquis I have discontinued her Solu- Cortef which was started empirically upon admission when she came in with hypotension. Mentation is still slow but seems to be fairly appropriate. She knew where she was and she knew the name of the president. Labs from today showed relatively normal CBC except for hemoglobin of 7.5 low potassium of 3.1 BUN is 26 creatinine 2.27, Steadily improving, patient came in with a potassium of 4.09 Patient was seen today on 05/13/2024, patient continues to do fairly well, on 2 L nasal cannula, being followed by nephrology for hemodialysis. She is hemodynamically stable, O2 sat is 98% on 2 L she has no active pulmonary symptoms. WBC count is 7.5 hemoglobin 7.1 electrolytes are normal however her BUN is 27 creatinine 2.47, liver enzymes were noted to be elevated with AST of 151 ALT of 240 and continues to have CPK slightly elevated at 529. CT of abdomen and pelvis done yesterday, raised the possibility of acute pancreatitis and ascites with diffuse subcutaneous edema. Hand surgery was consulted, ultrasound of the gallbladder showed evidence of gallstones, and felt to have most likely gallstone pancreatitis, recommending observation for now, in the meantime the patient is still undergoing hemodialysis as per nephrology for her acute kidney injury. Patient is kept n.p.o. for now because of her pancreatitis. Surgery is on the case. Patient was seen today on 05/14/2024, on 2 L nasal cannula, patient had dialysis catheter placed by vascular surgery today in the right subclavian area., Patient denies any shortness of breath or cough or wheezing, obviously the pat ient will need more hemodialysis her labs today show WBC count of 8.5 hemoglobin 7.6 electrolytes are normal BUN is 16 creatinine 1.81, patient remains oliguric Seen today on 05/15/2024, patient is doing fairly well, patient is on hemodialysis, no further bleeding noted from the permacath which was placed yesterday, patient remains oligoanuric, nephrology is considering starting again her hemodialysis her initial hemodialysis was on May 07/2025. And her permacath was placed on 05/14. Clearly the patient had acute kidney injury secondary to ATN secondary to shock and has been noticing steady rise in her creatinine since admission. I believe nephrology is planning hemodialysis tomorrow. And she is on Lasix at 80 mg daily. Labs today show WBC count of 10.3 hemoglobin of 8 electrolytes are normal BUN is 22 creatinine 2.25, chest x- ray yesterday showed bilateral pleural effusions and evidence of fluid overload/pulmonary edema related to her renal failure. Objective - Vital Signs Vital signs: Vital Signs Temp 97.7 F 05/15/24 12:08 Pulse 93 05/15/24 12:08 Resp 20 05/15/24 12:08 BP 159/75 05/15/24 12:08 Pulse Ox 95 05/15/24 12:08 FiO2 Intake & Output 05/14/24 05/15/24 05/15/24 18:59 06:59 18:59 Intake Total 420 410 255 Output Total 225 250 Balance 195 160 255 Weight 105 kg Intake: IV 370 100 255 .9@10 120 Invasive Line 4 40 35 Invasive Line 6 5 Piperacillin-Tazobactam 3 100 100 100 .375 gm In Sodium Chloride 0.9% 100 ml @ 25 mls/hr IVPB Q12HR [facility] Rx #:[id number] Sodium Chloride 0.9% 1, 150 000 ml @ 75 mls/hr IV . [id number] [facility] Rx#:[id number] Intake, IV Titration 50 Amount Desmopressin Acetate 20 50 mcg In Sodium Chloride 0. 9% 50 ml @ 200 mls/hr IVPB ONCE ONE Rx#: [id number] Blood Product 0 310 Rc As-1 Unit 0 [id number] Output: Urine 225 250 Other: Voiding Method Indwelling Catheter Indwelling Catheter Indwelling Catheter - Exam General: [Revealed 69-year-old female on 2 L nasal cannula,, O2 saturation 95% Derm: No rashes, skin is warm and dry Head: Atraumatic, normocephalic Eyes: EOMI, nonicteric, no neck masses no JVD Mouth: Moist mucous membranes Cardiovascular: Normal S1-S2, no S3 gallop Chest: Diminished breath sounds at the bases crackles at the right base. No rhonchi no wheezes. Bleeding from the permacath site seems to have subsided fully Abdominal: Soft minimal tenderness in mid abdomen, no rebound no guarding. Ext: Chronic venous stasis changes noted in the lower extremities otherwise unremarkable Neuro: Slow but seems to be appropriate and no gross focal neurologic deficit Psych: Normal mood, affect, and slow mental status - Labs CBC & Chem 7: 05/15/24 06:50 05/15/24 06:50 Labs: Abnormal Lab Results - Last 24 Hours (Table) 05/14/24 05/14/24 05/14/24 Range/Units 15:22 16:27 20:37 RBC 1.92 L (3.80-5.40) m/uL Hgb 6.6 L* (11.4-16.0) gm/dL Hct 19.8 L* (34.0-46.0) % MCV 103.6 H (80.0-100.0) fL RDW 17.4 H (11.5-15.5) % Neutrophils # 8.3 H (1.3-7.7) k/uL Lymphocytes # (1.0-4.8) k/uL Sodium (137-145) mmol/L BUN (7-17) mg/dL Creatinine (0.52-1.04) mg/dL Glucose (74-99) mg/dL POC Glucose (mg/dL) 127 H (70-110) mg/dL Calcium (8.4-10.2) mg/dL AST (14-36) U/L ALT (4-34) U/L Total Protein (6.3-8.2) g/dL Albumin (3.5-5.0) g/dL Crossmatch See Detail 05/14/24 05/15/24 05/15/24 Range/Units 23:04 06:29 06:50 RBC 2.52 L 2.39 L (3.80-5.40) m/uL Hgb 8.2 L D 8.0 L (11.4-16.0) gm/dL Hct 25.0 L 23.8 L (34.0-46.0) % MCV (80.0-100.0) fL RDW 17.8 H 18.1 H (11.5-15.5) % Neutrophils # 8.1 H 7.9 H (1.3-7.7) k/uL Lymphocytes # 0.9 L (1.0-4.8) k/uL Sodium (137-145) mmol/L BUN (7-17) mg/dL Creatinine (0.52-1.04) mg/dL Glucose (74-99) mg/dL POC Glucose (mg/dL) 132 H (70-110) mg/dL Calcium (8.4-10.2) mg/dL AST (14-36) U/L ALT (4-34) U/L Total Protein (6.3-8.2) g/dL Albumin (3.5-5.0) g/dL Crossmatch 05/15/24 05/15/24 Range/Units 06:50 11:17 RBC (3.80-5.40) m/uL Hgb (11.4-16.0) gm/dL Hct (34.0-46.0) % MCV (80.0-100.0) fL RDW (11.5-15.5) % Neutrophils # (1.3-7.7) k/uL Lymphocytes # (1.0-4.8) k/uL Sodium 131 L (137-145) mmol/L BUN 22 H (7-17) mg/dL Creatinine 2.25 H (0.52-1.04) mg/dL Glucose 120 H (74-99) mg/dL POC Glucose (mg/dL) 174 H (70-110) mg/dL Calcium 6.9 L (8.4-10.2) mg/dL AST 81 H (14-36) U/L ALT 155 H (4-34) U/L Total Protein 3.9 L (6.3-8.2) g/dL Albumin 2.2 L (3.5-5.0) g/dL Crossmatch Assessment and Plan Assessment: Impression:Acute Hypovolemic shock Acute kidney injury, patient is requiring hemodialysis, nephrology is following, patient will need further hemodialysis as she remains oliguric Acute lactic acidosis, related to dehydration and metformin patient improved with dialysis, Acute hyperkalemia secondary to acute kidney injury and metabolic acidosis, recovered Acute rhabdomyolysis, improving Acute on chronic anemia Type 2 diabetes, patient has been on Ozempic insulin Lantus and metformin which is presently off Chronic right hemidiaphragm paralysis Acute metabolic encephalopathy History of hypertension Dyslipidemia Previous history of DVT, on anticoagulation therapy on outpatient basis History of underlying COPD Hypothyroidism Anion gap metabolic acidosis resolved this is most likely to the combination of dehydration and metformin Acute gallstone pancreatitis Status post permacath placement on 05/14/2024 by vascular surgery Recommendation: Continue present supportive care measures Patient will have dialysis through her permacath on Thursday Close monitoring of her I's and O's, and renal profile. Agree with Lasix patient seems to be developing pulmonary edema with large right-sided pleural effusion which may improve after hemodialysis/ultrafiltration Nephrology is following her renal status., On hemodialysis Continue Zosyn Will continue to follow Time with Patient: Less than 30
--- NOTE | 2024-05-15 13:36 | P.PN ---
Subjective Progress Note Date: 05/15/24 Subjective: Patient seen and examined at bedside. No acute events overnight. Pertinent positives and negatives as discussed above, a complete review of systems was performed and all other systems are negative. Vitals Signs Reviewed. General: Nontoxic, no distress, appears at stated age, chronically ill- appearing, Enriquez catheter in place, anasarca Derm: Warm, dry Head: Atraumatic, normocephalic, symmetric Eyes: EOMI, no lid lag, anicteric sclera Mouth: No lip lesion, mucus membranes moist Cardiovascular: S1S2 reg, no murmur Lungs: Bibasilar rales, no accessory muscle use, supplemental oxygen Abdominal: Soft, nontender to palpation, no guarding, no appreciable organomegaly Ext: No gross muscle atrophy, no edema, no contractures, 3/5 strength in all extremities Neuro: CN II-XI grossly intact, no focal neuro deficits Psych: Alert, oriented, appropriate affect Data Reviewed Today: Pertinent Labs: WBC 10.3, hemoglobin 8, platelets 176, sodium 131, creatinine 2.25, glucose range between 1 20-1 74, magnesium 1.8, total bili 0.5, AST 81, ALT 155, ALP 98 Imaging: Chest x-ray interpreted from yesterday, shows bilateral pleural effusions Assessment and Plan: Active: Oliguric FLORIAN, likely ATN in the setting of shock, dialysis dependent Hypervolemic hyponatremia Anemia of chronic disease Acute blood loss anemia Anasarca Bilateral pleural effusions History of DVT -Nephrology note reviewed, continue on Thursday hemodialysis schedule, outpatient renal biopsy, started on IV Lasix 80 daily, monitor electrolytes, also on calcitriol 0.25 mcg every 72 hours -Status post total of 2 units of PRBCs during this admission, as well as DDAVP -Also continued on darbepoetin weekly -Continue to monitor hemoglobin -Consider restarting Eliquis tomorrow -Pulmonology note reviewed, agreed with further diuresis Acute pancreatitis, likely gallstone related Leukocytosis, resolved Transaminitis, resolving -Continue IV Zosyn 3.375 g every 12 hours, will de-escalate to cephalosporin and Flagyl -General Surgery also following, recommending outpatient cholecystectomy -Autoimmune pancreatitis also in differential, IgG 4 levels pending -Patient now on renal diet, tolerating well -Pain control with oral Tylenol as needed Resolved: Acute rhabdomyolysis Distributive shock, likely septic Hyperkalemia Lactic acidosis Anion gap metabolic acidosis Hypoglycemia in the setting of uncontrolled diabetes, continue fingerstick checks DVT ppx: SCDs Code status: Full code Anticipated discharge place: Pending clinical course Anticipated discharge time: Pending clinical course Objective - Vital Signs Vital signs: Vital Signs Temp 97.7 F 05/15/24 12:08 Pulse 93 05/15/24 12:08 Resp 20 05/15/24 12:08 BP 159/75 05/15/24 12:08 Pulse Ox 95 05/15/24 12:08 FiO2 Intake & Output 05/14/24 05/15/24 05/15/24 18:59 06:59 18:59 Intake Total 420 410 255 Output Total 225 250 Balance 195 160 255 Weight 105 kg Intake: IV 370 100 255 .9@10 120 Invasive Line 4 40 35 Invasive Line 6 5 Piperacillin-Tazobactam 3 100 100 100 .375 gm In Sodium Chloride 0.9% 100 ml @ 25 mls/hr IVPB Q12HR [facility] Rx #:[id number] Sodium Chloride 0.9% 1, 150 000 ml @ 75 mls/hr IV . [id number] [facility] Rx#:[id number] Intake, IV Titration 50 Amount Desmopressin Acetate 20 50 mcg In Sodium Chloride 0. 9% 50 ml @ 200 mls/hr IVPB ONCE ONE Rx#: [id number] Blood Product 0 310 Rc As-1 Unit 0 [id number] Output: Urine 225 250 Other: Voiding Method Indwelling Catheter Indwelling Catheter Indwelling Catheter - Labs CBC & Chem 7: 05/15/24 06:50 05/15/24 06:50 Labs: Abnormal Lab Results - Last 24 Hours (Table) 05/14/24 05/14/24 05/14/24 Range/Units 15:22 16:27 20:37 RBC 1.92 L (3.80-5.40) m/uL Hgb 6.6 L* (11.4-16.0) gm/dL Hct 19.8 L* (34.0-46.0) % MCV 103.6 H (80.0-100.0) fL RDW 17.4 H (11.5-15.5) % Neutrophils # 8.3 H (1.3-7.7) k/uL Lymphocytes # (1.0-4.8) k/uL Sodium (137-145) mmol/L BUN (7-17) mg/dL Creatinine (0.52-1.04) mg/dL Glucose (74-99) mg/dL POC Glucose (mg/dL) 127 H (70-110) mg/dL Calcium (8.4-10.2) mg/dL AST (14-36) U/L ALT (4-34) U/L Total Protein (6.3-8.2) g/dL Albumin (3.5-5.0) g/dL Crossmatch See Detail 05/14/24 05/15/24 05/15/24 Range/Units 23:04 06:29 06:50 RBC 2.52 L 2.39 L (3.80-5.40) m/uL Hgb 8.2 L D 8.0 L (11.4-16.0) gm/dL Hct 25.0 L 23.8 L (34.0-46.0) % MCV (80.0-100.0) fL RDW 17.8 H 18.1 H (11.5-15.5) % Neutrophils # 8.1 H 7.9 H (1.3-7.7) k/uL Lymphocytes # 0.9 L (1.0-4.8) k/uL Sodium (137-145) mmol/L BUN (7-17) mg/dL Creatinine (0.52-1.04) mg/dL Glucose (74-99) mg/dL POC Glucose (mg/dL) 132 H (70-110) mg/dL Calcium (8.4-10.2) mg/dL AST (14-36) U/L ALT (4-34) U/L Total Protein (6.3-8.2) g/dL Albumin (3.5-5.0) g/dL Crossmatch 05/15/24 05/15/24 Range/Units 06:50 11:17 RBC (3.80-5.40) m/uL Hgb (11.4-16.0) gm/dL Hct (34.0-46.0) % MCV (80.0-100.0) fL RDW (11.5-15.5) % Neutrophils # (1.3-7.7) k/uL Lymphocytes # (1.0-4.8) k/uL Sodium 131 L (137-145) mmol/L BUN 22 H (7-17) mg/dL Creatinine 2.25 H (0.52-1.04) mg/dL Glucose 120 H (74-99) mg/dL POC Glucose (mg/dL) 174 H (70-110) mg/dL Calcium 6.9 L (8.4-10.2) mg/dL AST 81 H (14-36) U/L ALT 155 H (4-34) U/L Total Protein 3.9 L (6.3-8.2) g/dL Albumin 2.2 L (3.5-5.0) g/dL Crossmatch
[2024-05-15 16:09] LABS: Glucose,Whole Blood 172 mg/dL (70-110)
--- NOTE | 2024-05-15 17:00 | P.PN ---
Progress Note - Text Progress Note Date: 05/15/24 No acute events overnight. Patient is not having any pain. She had permacath placed yesterday for FLORIAN. Tolerating diet PHYSICAL EXAM: VITAL SIGNS: Reviewed GENERAL: Well-developed in no acute distress. HEENT: No sclera icterus. Extraocular movements grossly intact. Moist buccal mucosa. Head is atraumatic, normocephalic. No nasal drainage. ABDOMEN: Soft. Obese. Nondistended. mild tenderness mid abdomen. no RUQ tenderness. No rebound or guarding NEUROLOGIC: Alert and oriented. Cranial nerves II through XII grossly intact. ASSESSMENT: 1. Gallstone pancreatitis 2. Acute kidney injury requiring hemodialysis 3. Anemia PLAN: -Renal Diet -Will plan for outpatient cholecystectomy once patient resolves from FLORIAN -Ok to resume Eliquis -Pain and Nausea Control Husam Pa DO [facility] [phone]
[2024-05-15 20:10] LABS: Glucose,Whole Blood 163 mg/dL (70-110)
[2024-05-15] MEDS: NYSTATIN 100,000 UNIT/GM POWD 15 GM TOPICAL SCH (23:34)
[2024-05-16 06:05] LABS: Glucose,Whole Blood 164 mg/dL (70-110)
[2024-05-16 06:49] LABS: Anisocytosis Slight; Basophils % (A) 0 %; Eosinophils # (A) 0.4 k/uL (0-0.7); Eosinophils % (A) 5 %; HCT 25.6 % (34.0-46.0); HGB 8.3 gm/dL (11.4-16.0); Lymphocytes % (A) 11 %; MCH 32.4 pg (25.0-35.0); MCHC 32.6 g/dL (31.0-37.0); MCV 99.6 fL (80.0-100.0); Macrocytosis Moderate; Mean Platelet Volume 9.3; Monocytes # (A) 0.6 k/uL (0-1.0); Monocytes % (A) 7 %; Neutrophils % (A) 76 %; Platelet Count 213 k/uL (150-450); RBC 2.57 m/uL (3.80-5.40); RDW 18.2 % (11.5-15.5); WBC 9.2 k/uL (3.8-10.6)
[2024-05-16 07:30] LABS: ALT 139 U/L (4-34); AST 65 U/L (14-36); African American GFR (CKD) 22 (>60 ml/min/1.73 sqM); Albumin 2.3 g/dL (3.5-5.0); Alkaline Phosphatase 101 U/L (38-126); Anion Gap 8 mmol/L; Blood Urea Nitrogen 27 mg/dL (7-17); Calcium 7.2 mg/dL (8.4-10.2); Carbon Dioxide 24 mmol/L (22-30); Chloride 100 mmol/L (98-107); Glucose 142 mg/dL (74-99); Magnesium 1.9 mg/dL (1.6-2.3); Non-African American GFR(CKD) 19 (>60 ml/min/1.73 sqM); Potassium 3.7 mmol/L (3.5-5.1); Sodium 132 mmol/L (137-145); Total Bilirubin 0.4 mg/dL (0.2-1.3)
[2024-05-16 11:32] LABS: Glucose,Whole Blood 127 mg/dL (70-110)
[2024-05-16 13:40] LABS: IgG Subclass 2 114.7 mg/dL (241.80-700.30); IgG Subclass 3 12.8 mg/dL (21.82-176.00); IgG Subclass 4 2.3 mg/dL (3.92-86.40)
[2024-05-16 14:02] VITALS: BMI 43.7
--- NOTE | 2024-05-16 14:11 | P.PN ---
Subjective Progress Note Date: 05/16/24 SURGICAL PROGRESS NOTE CHIEF COMPLAINT: FLORIAN HISTORY OF PRESENT ILLNESS: Patient getting hemodialysis again today. Surgical service is following in regards to gallstone pancreatitis. Patient is toleratin g diet. She denies any nausea or vomiting. She reports improvement in her abdominal pain. She reports some mild discomfort in the mid abdomen. Afebrile. WBC 9.2 Hgb 8.3 platelets 213 creatinine 2.54 total bili 0.4 LFTs trending down AST 65 ALT 139 alk phos 101 PHYSICAL EXAM: VITAL SIGNS: Reviewed. GENERAL: Well-developed in no acute distress. ABDOMEN: Soft. Nondistended. Mild discomfort with palpation to the mid abdomen. No right upper quadrant tenderness. No rebound or guarding. NEUROLOGIC: Alert and oriented. Cranial nerves II through XII grossly intact. ASSESSMENT: 1. Gallstone pancreatitis 2. Acute kidney injury requiring hemodialysis 3. Anemia PLAN: -Recommend low-fat, renal diet -Recommend outpatient cholecystectomy once patient results from acute kidney injury -Okay to resume Eliquis from surgical standpoint Physician Reaming Press Operator note has been reviewed by physician. Signing provider agrees with the documented findings, assessment, and plan of care. Attestation Patient seen and examined at bedside. Presented with chief complaint of acute kidney injury. Found to have gallstone pancreatitis that appears to be improving. She is receiving hemodialysis. Per patient, plan for discharge to rehab facility tomorrow. Patient can follow-up as an outpatient for optimal timing of cholecystectomy. Meenakshi Brown, Objective - Vital Signs Vital signs: Vital Signs Temp 97.9 F 05/16/24 11:40 Pulse 75 05/16/24 11:40 Resp 18 05/16/24 11:40 BP 139/82 05/16/24 11:40 Pulse Ox 100 05/16/24 08:41 FiO2 Intake & Output 05/15/24 05/16/24 05/16/24 18:59 06:59 18:59 Intake Total 375 Output Total 350 Balance 375 -350 Weight 105 kg Intake: IV 255 .9@10 120 Invasive Line 4 35 Piperacillin-Tazobactam 3 100 .375 gm In Sodium Chloride 0.9% 100 ml @ 25 mls/hr IVPB Q12HR [facility] Rx #:[id number] Oral 120 Output: Urine 350 Other: Voiding Method Indwelling Catheter Indwelling Catheter Indwelling Catheter # Bowel Movements 1 - Labs CBC & Chem 7: 05/16/24 06:08 05/16/24 06:08 Labs: Abnormal Lab Results - Last 24 Hours (Table) 05/15/24 05/15/24 05/16/24 Range/Units 16:08 20:09 06:04 RBC (3.80-5.40) m/uL Hgb (11.4-16.0) gm/dL Hct (34.0-46.0) % RDW (11.5-15.5) % Sodium (137-145) mmol/L BUN (7-17) mg/dL Creatinine (0.52-1.04) mg/dL Glucose (74-99) mg/dL POC Glucose (mg/dL) 172 H 163 H 164 H (70-110) mg/dL Calcium (8.4-10.2) mg/dL AST (14-36) U/L ALT (4-34) U/L Total Protein (6.3-8.2) g/dL Albumin (3.5-5.0) g/dL 05/16/24 05/16/24 05/16/24 Range/Units 06:08 06:08 11:29 RBC 2.57 L (3.80-5.40) m/uL Hgb 8.3 L (11.4-16.0) gm/dL Hct 25.6 L (34.0-46.0) % RDW 18.2 H (11.5-15.5) % Sodium 132 L (137-145) mmol/L BUN 27 H (7-17) mg/dL Creatinine 2.54 H (0.52-1.04) mg/dL Glucose 142 H (74-99) mg/dL POC Glucose (mg/dL) 127 H (70-110) mg/dL Calcium 7.2 L (8.4-10.2) mg/dL AST 65 H (14-36) U/L ALT 139 H (4-34) U/L Total Protein 4.0 L (6.3-8.2) g/dL Albumin 2.3 L (3.5-5.0) g/dL
--- NOTE | 2024-05-16 15:03 | P.PN ---
Subjective Progress Note Date: 05/16/24 Principal diagnosis: Renal failure. On 05/07/2024, the patient is being seen in consultation in the emergency department for hypotension and severe lactic acidosis. The patient is known to have diabetes mellitus type 2, hypertension hyperlipidemia and previous history of a DVT for which she has been maintained on anticoagulation. She is also known to have a chronic right hemidiaphragmatic paralysis. The patient came into the hospital feeling generalized weakness and she also had diminished level of consciousness and she was having episodes of hypoglycemia. Notably, the patient has been receiving a combination of medication for diabetes which included Lantus insulin, Ozempic, metformin and short acting insulin for blood sugars controlled. The patient was started on D5 water and subsequent blood work showed severe metabolic derangements. The patient's serum bicarb was at 8. The patient's lactic acid level was initially at 8.5 and potassium level was at 6.1. She did have an anion gap of 21 at the time of the admission. At the same time, her calcium level was 8, 9 she had a rhabdomyolysis with a CPK of 2190, troponins were negative, procalcitonin level was at 0.8. UA showed +2 proteins, and acetone was negative. The white cell count was at 12.6 with a hemoglobin of 8.8 and a platelet count of 353. The patient received a total of 4.5 L of IV fluids in the emergency department and subsequently she was started on pressors and currently norepinephrine is running at 0.16 mcg/kg/min. Triple-lumen catheter was inserted. Subsequently, the patient was switched to a bicarb infusion at rate of 125 cc an hour. Most recent labs showed ongoing acidosis wi th a serum bicarb of 6, lactic acid remains at 9.1. There has been some modest improvement in the kidney function as initial creatinine was at 4.09 and the creatinine is down to 3.81. Potassium level this morning was at 6.7. I gave additional bicarb, D50 insulin and calcium to this patient and informed nephrology. She may need potentially dialysis as the patient may have severe lactic acidosis secondary to metformin. She is being monitored very closely. Blood gas was also done that showed a pH of 7.14 with a pCO2 of 24 and pO2 of 97 this was an FiO2 of 26%. Ultrasound of the kidneys shows no evidence of any hydronephrosis. CAT scan abdomen chest abdomen and pelvis shows right hemidia phragmatic elevation, otherwise no other significant abnormalities. Despite all this abnormalities, the patient seems to be arousable and communicating. She seems to be appropriate. She is on 1 and half liters of oxygen by nasal cannula with a pulse ox of 95%. On 05/08/2024, the patient is being seen for a follow-up. She presented to us with severe metabolic and lactic acidosis. She also had an acute kidney injury. This is attributed to severe intravascular volume depletion and metformin induced lactic acidosis. The patient underwent hemodialysis yesterday. An emergent dialysis was performed as the patient was not producing much of urine output and the patient was also hyperkalemic along with severe metabolic acidosis. She also had severe lactic acidosis. On today's evaluation, the patient is feeling better. Hemodialysis was completed and a second session to be done today. Labs have improved compared to yesterday. Sodium is at 133, potassium is down to 4, bicarb is at 18, BUN is 40 with a creatinine of 2.7. Lactic acid level has been downtrending and it peaked at 12.8 and dropped down to 5.8. Awake and alert and communicating. Remains on a bicarb infusion which is running at 75 cc an hour. She is also on norepinephrine at 0.13 mcg/kg/min. She has a right forearm femoral hemodialysis catheter and left femoral triple- lumen catheter. Hemoglobin dropped down to 6.8 and the patient is going to receive a unit of packed RBC. She is on 2 L of oxygen by nasal cannula. Awake and alert and communicating. Patient was seen today on 05/09/2024, remains in the ICU, on 2 L nasal cannula, off norepinephrine for the last 12 hours, patient is on hemodialysis last hemod ialysis was 05/07. Fluid is at 75 cc/h 0.9 normal saline, patient is lethargic but alert, able to answer questions, urine output remains marginal between 10 to 20 cc/h remains on Zosyn. Patient is steadily improving, her labs showed relatively normal CBC, electrolytes are normal bicarb is 27 BUN is 38 creatinine 2.84 procalcitonin level on admission was 0.83, blood cultures remain negative Seen today on 05/10/2024 remains in the ICU, however she is an overflow in the ICU. Patient is hemodynamically stable, temp is 98.4, blood pressure 133/72 and O2 sat is 96% on 2 L nasal cannula. IV fluid is running at 75 cc/h/0.9 normal saline patient remains on Zosyn and on Eliquis I have discontinued her Solu- Cortef which was started empirically upon admission when she came in with hypotension. Mentation is still slow but seems to be fairly appropriate. She knew where she was and she knew the name of the president. Labs from today showed relatively normal CBC except for hemoglobin of 7.5 low potassium of 3.1 BUN is 26 creatinine 2.27, Steadily improving, patient came in with a potassium of 4.09 Patient was seen today on 05/13/2024, patient continues to do fairly well, on 2 L nasal cannula, being followed by nephrology for hemodialysis. She is hemodynamically stable, O2 sat is 98% on 2 L she has no active pulmonary symptoms. WBC count is 7.5 hemoglobin 7.1 electrolytes are normal however her BUN is 27 creatinine 2.47, liver enzymes were noted to be elevated with AST of 151 ALT of 240 and continues to have CPK slightly elevated at 529. CT of abdomen and pelvis done yesterday, raised the possibility of acute pancreatitis and ascites with diffuse subcutaneous edema. Hand surgery was consulted, ultrasound of the gallbladder showed evidence of gallstones, and felt to have most likely gallstone pancreatitis, recommending observation for now, in the meantime the patient is still undergoing hemodialysis as per nephrology for her acute kidney injury. Patient is kept n.p.o. for now because of her pancreatitis. Surgery is on the case. Patient was seen today on 05/14/2024, on 2 L nasal cannula, patient had dialysis catheter placed by vascular surgery today in the right subclavian area., Patient denies any shortness of breath or cough or wheezing, obviously the patient will need more hemodialysis her labs today show WBC count of 8.5 hemoglobin 7.6 electrolytes are normal BUN is 16 creatinine 1.81, patient remains oliguric Seen today on 05/15/2024, patient is doing fairly well, patient is on hemodialysis, no further bleeding noted from the permacath which was placed ye sterday, patient remains oligoanuric, nephrology is considering starting again her hemodialysis her initial hemodialysis was on May 07/2025. And her permacath was placed on 05/14. Clearly the patient had acute kidney injury secondary to ATN secondary to shock and has been noticing steady rise in her creatinine since admission. I believe nephrology is planning hemodialysis tomorrow. And she is on Lasix at 80 mg daily. Labs today show WBC count of 10.3 hemoglobin of 8 electrolytes are normal BUN is 22 creatinine 2.25, chest x- ray yesterday showed bilateral pleural effusions and evidence of fluid overload/pulmonary edema related to her renal failure. Progress note dated May 16, 2024. 69-year-old female seen today in room 370. Patient is currently receiving hemodialysis. The patient is on 2 L of oxygen by nasal cannula. No IV fluids. The patient's Zosyn was converted to Unasyn by the primary service. The patient states that she is feeling better, and is in no acute distress. She denies any shortness of breath, or difficulty breathing. She denies any chest pain. Labs are reviewed and reveals a white count of 9.2, hemoglobin 8.3, hematocrit 25.6, and a platelet count of 213,000. Sodium 132, potassium 3.7, chlorides 100, CO2 24, BUN 27, creatinine 2.54. Glucose is 127. Calcium 7.2. Albumin 2.3. Cultures are negative. Objective - Vital Signs Vital signs: Vital Signs Temp 97.9 F 05/16/24 11:40 Pulse 75 05/16/24 11:40 Resp 18 05/16/24 11:40 BP 139/82 05/16/24 11:40 Pulse Ox 100 05/16/24 08:41 FiO2 Intake & Output 05/15/24 05/16/24 05/16/24 18:59 06:59 18:59 Intake Total 375 Output Total 350 Balance 375 -350 Weight 105 kg 105 kg Intake: IV 255 .9@10 120 Invasive Line 4 35 Piperacillin-Tazobactam 3 100 .375 gm In Sodium Chloride 0.9% 100 ml @ 25 mls/hr IVPB Q12HR [facility] Rx #:[id number] Oral 120 Output: Urine 350 Other: Voiding Method Indwelling Catheter Indwelling Catheter Indwelling Catheter # Bowel Movements 1 - Exam No acute distress, oriented 3. No respiratory distress. Currently on 2 L. HEENT examination is grossly unremarkable. Mucous membranes are moist. No oral lesions. Neck supple. Full range of motion. No adenopathy thyromegaly or neck vein distention. Cardiovascular examination reveals regular rhythm rate. S1-S2 normal. No S3 or S4. No discernible murmur noted. Lungs reveal clear breath sounds. Breath sounds are equal bilaterally. No adventitious lung sounds including wheezes rhonchi or crackles. Abdomen soft bowel sounds are heard. No masses or tenderness. Extremities some edema. No cyanosis or clubbing. Chronic venous stasis changes are noted. Skin is without rash or lesion. Neurologic examination is brief but nonfocal. - Labs CBC & Chem 7: 05/16/24 06:08 05/16/24 06:08 Labs: Abnormal Lab Results - Last 24 Hours (Table) 05/12/24 05/15/24 05/15/24 Range/Units 07:44 16:08 20:09 RBC (3.80-5.40) m/uL Hgb (11.4-16.0) gm/dL Hct (34.0-46.0) % RDW (11.5-15.5) % Sodium (137-145) mmol/L BUN (7-17) mg/dL Creatinine (0.52-1.04) mg/dL Glucose (74-99) mg/dL POC Glucose (mg/dL) 172 H 163 H (70-110) mg/dL Calcium (8.4-10.2) mg/dL AST (14-36) U/L ALT (4-34) U/L Total Protein (6.3-8.2) g/dL Albumin (3.5-5.0) g/dL IgG1 134.00 L (382.40-928.60) mg/dL IgG2 114.70 L (241.80-700.30) mg/dL IgG3 12.80 L (21.82-176.00) mg/dL IgG4 2.30 L (3.92-86.40) mg/dL 05/16/24 05/16/24 05/16/24 Range/Units 06:04 06:08 06:08 RBC 2.57 L (3.80-5.40) m/uL Hgb 8.3 L (11.4-16.0) gm/dL Hct 25.6 L (34.0-46.0) % RDW 18.2 H (11.5-15.5) % Sodium 132 L (137-145) mmol/L BUN 27 H (7-17) mg/dL Creatinine 2.54 H (0.52-1.04) mg/dL Glucose 142 H (74-99) mg/dL POC Glucose (mg/dL) 164 H (70-110) mg/dL Calcium 7.2 L (8.4-10.2) mg/dL AST 65 H (14-36) U/L ALT 139 H (4-34) U/L Total Protein 4.0 L (6.3-8.2) g/dL Albumin 2.3 L (3.5-5.0) g/dL IgG1 (382.40-928.60) mg/dL IgG2 (241.80-700.30) mg/dL IgG3 (21.82-176.00) mg/dL IgG4 (3.92-86.40) mg/dL 05/16/24 Range/Units 11:29 RBC (3.80-5.40) m/uL Hgb (11.4-16.0) gm/dL Hct (34.0-46.0) % RDW (11.5-15.5) % Sodium (137-145) mmol/L BUN (7-17) mg/dL Creatinine (0.52-1.04) mg/dL Glucose (74-99) mg/dL POC Glucose (mg/dL) 127 H (70-110) mg/dL Calcium (8.4-10.2) mg/dL AST (14-36) U/L ALT (4-34) U/L Total Protein (6.3-8.2) g/dL Albumin (3.5-5.0) g/dL IgG1 (382.40-928.60) mg/dL IgG2 (241.80-700.30) mg/dL IgG3 (21.82-176.00) mg/dL IgG4 (3.92-86.40) mg/dL Assessment and Plan Assessment: Acute hypovolemic shock. Acute kidney injury, requiring hemodialysis. Acute lactic acidosis, secondary to dehydration, and possibly metformin. Acute hyperkalemia, secondary to FLORIAN. Acute rhabdomyolysis, improved. Acute on chronic anemia. Type 2 diabetes mellitus. Chronic right hemidiaphragm paralysis. Acute metabolic encephalopathy. History of hypertension. History of hyperlipidemia. Prior history of DVT. History of COPD. History of hypothyroidism. Acute gallstone pancreatitis. Plan: Plan dated May 16, 2024. The patient is seen today in room 370. She is receiving hemodialysis. Currently, she is on O2 by nasal cannula 2 L. She states that her breathing is stable, she denies all respiratory issues. She is not receiving any IV fluids. The primary service changed her Zosyn to Unasyn. Her examination is otherwise normal. She does have some mild lower extremity edema, some chronic venous stasis changes, to the lower extremities. We will continue to follow make recommendations. All labs, x-rays, and medications are reviewed. Time with Patient: Less than 30
--- NOTE | 2024-05-16 15:27 | P.PN ---
Subjective Patient is seen in follow-up for acute kidney injury. Started on hemodialysis May 07, 2024. Permacath placed May 14, 2024. Oozing from permacath site improved. Urine output remains low. Oral intake fair. Family present at bedside. Vital signs are stable. General: Resting in bed. HEENT: On nasal cannula. LUNGS: No audible rhonchi or wheezes. HEART: Rate and Rhythm are regular. ABDOMEN: No distention. EXTREMITITES: 1+ edema. Chronic changes noted. Objective - Vital Signs Vital signs: Vital Signs Temp 97.9 F 05/16/24 11:40 Pulse 75 05/16/24 11:40 Resp 18 05/16/24 11:40 BP 139/82 05/16/24 11:40 Pulse Ox 100 05/16/24 08:41 FiO2 Intake & Output 05/15/24 05/16/24 05/16/24 18:59 06:59 18:59 Intake Total 375 Output Total 350 Balance 375 -350 Weight 105 kg 105 kg Intake: IV 255 .9@10 120 Invasive Line 4 35 Piperacillin-Tazobactam 3 100 .375 gm In Sodium Chloride 0.9% 100 ml @ 25 mls/hr IVPB Q12HR [facility] Rx #:[id number] Oral 120 Output: Urine 350 Other: Voiding Method Indwelling Catheter Indwelling Catheter Indwelling Catheter # Bowel Movements 1 - Labs CBC & Chem 7: 05/16/24 06:08 05/16/24 06:08 Labs: Abnormal Lab Results - Last 24 Hours (Table) 05/12/24 05/15/24 05/15/24 Range/Units 07:44 16:08 20:09 RBC (3.80-5.40) m/uL Hgb (11.4-16.0) gm/dL Hct (34.0-46.0) % RDW (11.5-15.5) % Sodium (137-145) mmol/L BUN (7-17) mg/dL Creatinine (0.52-1.04) mg/dL Glucose (74-99) mg/dL POC Glucose (mg/dL) 172 H 163 H (70-110) mg/dL Calcium (8.4-10.2) mg/dL AST (14-36) U/L ALT (4-34) U/L Total Protein (6.3-8.2) g/dL Albumin (3.5-5.0) g/dL IgG1 134.00 L (382.40-928.60) mg/dL IgG2 114.70 L (241.80-700.30) mg/dL IgG3 12.80 L (21.82-176.00) mg/dL IgG4 2.30 L (3.92-86.40) mg/dL 05/16/24 05/16/24 05/16/24 Range/Units 06:04 06:08 06:08 RBC 2.57 L (3.80-5.40) m/uL Hgb 8.3 L (11.4-16.0) gm/dL Hct 25.6 L (34.0-46.0) % RDW 18.2 H (11.5-15.5) % Sodium 132 L (137-145) mmol/L BUN 27 H (7-17) mg/dL Creatinine 2.54 H (0.52-1.04) mg/dL Glucose 142 H (74-99) mg/dL POC Glucose (mg/dL) 164 H (70-110) mg/dL Calcium 7.2 L (8.4-10.2) mg/dL AST 65 H (14-36) U/L ALT 139 H (4-34) U/L Total Protein 4.0 L (6.3-8.2) g/dL Albumin 2.3 L (3.5-5.0) g/dL IgG1 (382.40-928.60) mg/dL IgG2 (241.80-700.30) mg/dL IgG3 (21.82-176.00) mg/dL IgG4 (3.92-86.40) mg/dL 05/16/24 Range/Units 11:29 RBC (3.80-5.40) m/uL Hgb (11.4-16.0) gm/dL Hct (34.0-46.0) % RDW (11.5-15.5) % Sodium (137-145) mmol/L BUN (7-17) mg/dL Creatinine (0.52-1.04) mg/dL Glucose (74-99) mg/dL POC Glucose (mg/dL) 127 H (70-110) mg/dL Calcium (8.4-10.2) mg/dL AST (14-36) U/L ALT (4-34) U/L Total Protein (6.3-8.2) g/dL Albumin (3.5-5.0) g/dL IgG1 (382.40-928.60) mg/dL IgG2 (241.80-700.30) mg/dL IgG3 (21.82-176.00) mg/dL IgG4 (3.92-86.40) mg/dL Assessment and Plan Plan: Assessment: 1. Acute kidney injury secondary to ATN secondary to shock. Creatinine 0.8 in September 2023 and elevated at 4.09 this admission. Oliguric. Started on hemodialysis May 07, 2024. No hydronephrosis noted on imaging. UA with 2+ protein and no blood. 2. Anion gap metabolic acidosis secondary to acute kidney injury, lactic acidosis and use of metformin. Improved with bicarb drip and dialysis. Urine ketones and serum acetone negative. 3. Acute blood loss anemia status post blood transfusions this admission. Platelet count normal. LDH high, haptoglobin not low. Iron replete. On Aranesp. 4. Chronic kidney disease stage I with baseline creatinine near 0.8 from September 2023. She has underlying diabetic kidney disease with proteinuria. 5. Hyperkalemia secondary to acute kidney injury and acidosis. Resolved. Then potassium low and was replaced. 6. Mild rhabdomyolysis. CK levels have been trending down. 7. Hypocalcemia secondary to acute kidney injury. Replaced. Corrected calcium in the normal range. PTH 282 and vitamin D level 36. On calcitriol. 8. Fluid overload. Improved. 9. Acute pancreatitis. On renal diet. Plan: Hemodialysis today. Will maintain on Thursday schedule. Challenge ultrafiltration. Serologies negative except for low C3. Maintain IV Lasix. Monitor for renal recovery. Phosphorus level 3.1 dated May 12, 2024. Discussed kidney biopsy for definitive diagnosis - will be scheduled outpatient as no interventional radiologist available till June 07. Femoral catheter to be removed today.
--- NOTE | 2024-05-16 15:49 | P.PN ---
Subjective Progress Note Date: 05/16/24 Subjective: Patient seen and examined at bedside. No acute events overnight. Pertinent positives and negatives as discussed above, a complete review of systems was performed and all other systems are negative. Vitals Signs Reviewed. General: Nontoxic, no distress, appears at stated age, chronically ill- appearing, Enriquez catheter in place, anasarca Derm: Warm, dry Head: Atraumatic, normocephalic, symmetric Eyes: EOMI, no lid lag, anicteric sclera Mouth: No lip lesion, mucus membranes moist Cardiovascular: S1S2 reg, no murmur Lungs: Bibasilar rales, no accessory muscle use, supplemental oxygen Abdominal: Soft, nontender to palpation, no guarding, no appreciable organomegal y Ext: No gross muscle atrophy, no edema, no contractures, 3/5 strength in all extremities Neuro: CN II-XI grossly intact, no focal neuro deficits Psych: Alert, oriented, appropriate affect Data Reviewed Today: Pertinent Labs: WBC 5.2, hemoglobin 8.3, platelets 213, sodium 132, creatinine 2.54, [id number], magnesium 1.9, AST 65, ALT 139, ALP 101 Imaging: N/A Assessment and Plan: Active: Oliguric FLORIAN, likely ATN in the setting of shock, dialysis dependent Hypervolemic hyponatremia Anemia of chronic disease Acute blood loss anemia Anasarca Bilateral pleural effusions History of DVT -Nephrology note reviewed, continue on Thursday hemodialysis schedule, outpatient renal biopsy, maintain IV Lasix 80 mg, monitor electrolytes, also on calcitriol 0.25 mcg every 72 hours -Status post total of 2 units of PRBCs during this admission, as well as DDAVP -Also continued on darbepoetin weekly -Continue to monitor hemoglobin -Continue to hold Eliquis, plan to resume tomorrow, discussed with vascular surgery -Pulmonology note reviewed, continue with Mario Spoke with social media intern, patient is to go to SNF at [facility] in [place], likely dispo tomorrow pending insurance auth Acute pancreatitis, likely gallstone related Leukocytosis, resolved Transaminitis, resolving -Zosyn switched to Unasyn given IVPB daily -General Surgery also following, recommending outpatient cholecystectomy -Autoimmune pancreatitis also in differential, IgG 4 levels pending -Patient now on renal diet, tolerating well -Pain control with oral Tylenol as needed Resolved: Acute rhabdomyolysis Distributive shock, likely septic Hyperkalemia Lactic acidosis Anion gap metabolic acidosis Hypoglycemia in the setting of uncontrolled diabetes, continue fingerstick checks DVT prophylaxis: SCDs Disposition: Possible rehab tomorrow I have seen and evaluated the patient today. Discussed with the resident and agree with the residents finding and plan as documented in the resident's note. Changes highlighted in blue font. Objective - Vital Signs Vital signs: Vital Signs Temp 97.6 F 05/15/24 19:51 Pulse 90 05/16/24 03:19 Resp 16 05/16/24 03:19 BP 164/76 05/16/24 03:19 Pulse Ox 96 05/16/24 03:19 FiO2 Intake & Output 05/15/24 05/16/24 05/16/24 18:59 06:59 18:59 Intake Total 375 Output Total 350 Balance 375 -350 Weight 105 kg Intake: IV 255 .9@10 120 Invasive Line 4 35 Piperacillin-Tazobactam 3 100 .375 gm In Sodium Chloride 0.9% 100 ml @ 25 mls/hr IVPB Q12HR [facility] Rx #:[id number] Oral 120 Output: Urine 350 Other: Voiding Method Indwelling Catheter Indwelling Catheter # Bowel Movements 1 - Labs CBC & Chem 7: 05/16/24 06:08 05/16/24 06:08 Labs: Abnormal Lab Results - Last 24 Hours (Table) 05/15/24 05/15/24 05/15/24 Range/Units 06:50 06:50 11:17 RBC 2.39 L (3.80-5.40) m/uL Hgb 8.0 L (11.4-16.0) gm/dL Hct 23.8 L (34.0-46.0) % RDW 18.1 H (11.5-15.5) % Neutrophils # 7.9 H (1.3-7.7) k/uL Sodium 131 L (137-145) mmol/L BUN 22 H (7-17) mg/dL Creatinine 2.25 H (0.52-1.04) mg/dL Glucose 120 H (74-99) mg/dL POC Glucose (mg/dL) 174 H (70-110) mg/dL Calcium 6.9 L (8.4-10.2) mg/dL AST 81 H (14-36) U/L ALT 155 H (4-34) U/L Total Protein 3.9 L (6.3-8.2) g/dL Albumin 2.2 L (3.5-5.0) g/dL 05/15/24 05/15/24 05/16/24 Range/Units 16:08 20:09 06:04 RBC (3.80-5.40) m/uL Hgb (11.4-16.0) gm/dL Hct (34.0-46.0) % RDW (11.5-15.5) % Neutrophils # (1.3-7.7) k/uL Sodium (137-145) mmol/L BUN (7-17) mg/dL Creatinine (0.52-1.04) mg/dL Glucose (74-99) mg/dL POC Glucose (mg/dL) 172 H 163 H 164 H (70-110) mg/dL Calcium (8.4-10.2) mg/dL AST (14-36) U/L ALT (4-34) U/L Total Protein (6.3-8.2) g/dL Albumin (3.5-5.0) g/dL 05/16/24 Range/Units 06:08 RBC 2.57 L (3.80-5.40) m/uL Hgb 8.3 L (11.4-16.0) gm/dL Hct 25.6 L (34.0-46.0) % RDW 18.2 H (11.5-15.5) % Neutrophils # (1.3-7.7) k/uL Sodium (137-145) mmol/L BUN (7-17) mg/dL Creatinine (0.52-1.04) mg/dL Glucose (74-99) mg/dL POC Glucose (mg/dL) (70-110) mg/dL Calcium (8.4-10.2) mg/dL AST (14-36) U/L ALT (4-34) U/L Total Protein (6.3-8.2) g/dL Albumin (3.5-5.0) g/dL
[2024-05-16 16:13] LABS: Glucose,Whole Blood 124 mg/dL (70-110)
[2024-05-16] MEDS: AMPICILLIN-SULBACTAM 3 GM in SODIUM CHLORIDE 0.9% 100 ML IVPB SCH (19:41)
[2024-05-16] MEDS: ZINC OXIDE PASTE (Z-GUARD) 1 APPLIC TOPICAL PRN (19:41)
[2024-05-16 20:03] LABS: Glucose,Whole Blood 124 mg/dL (70-110)
[2024-05-17] MEDS: ONDANSETRON 4 MG/2 ML VIAL IVP PRN (03:30)
[2024-05-17 03:33] VITALS: RESP 16
[2024-05-17 06:08] LABS: Glucose,Whole Blood 121 mg/dL (70-110)
[2024-05-17] MEDS: APIXABAN 5 MG TAB PO SCH (08:52)
[2024-05-17] MEDS ORDERED: DEXTROSE 50% SYRINGE 50 ML IVP PRN ×2 (11:07)
[2024-05-17 11:30] LABS: Glucose,Whole Blood 139 mg/dL (70-110)
[2024-05-17 11:33] LABS: Anisocytosis Slight; Basophils % (A) 0 %; Eosinophils # (A) 0.4 k/uL (0-0.7); Eosinophils % (A) 5 %; HCT 20.9 % (34.0-46.0); HGB 7.1 gm/dL (11.4-16.0); Lymphocytes # (A) 1.1 k/uL (1.0-4.8); Lymphocytes % (A) 12 %; MCH 33.4 pg (25.0-35.0); MCHC 33.9 g/dL (31.0-37.0); MCV 98.5 fL (80.0-100.0); Macrocytosis Slight; Mean Platelet Volume 9.1; Monocytes # (A) 0.6 k/uL (0-1.0); Monocytes % (A) 6 %; Neutrophils # (A) 6.5 k/uL (1.3-7.7); Neutrophils % (A) 74 %; Platelet Count 275 k/uL (150-450); RBC 2.12 m/uL (3.80-5.40); RDW 18.2 % (11.5-15.5); WBC 8.7 k/uL (3.8-10.6)
[2024-05-17] MEDS: INSULIN ASPART (NovoLOG) 100 UNIT/ML VIAL SQ SCH (11:42)
[2024-05-17 11:52] LABS: ALT 112 U/L (4-34); AST 56 U/L (14-36); African American GFR (CKD) 31 (>60 ml/min/1.73 sqM); Albumin 2.1 g/dL (3.5-5.0); Alkaline Phosphatase 92 U/L (38-126); Anion Gap 6 mmol/L; Blood Urea Nitrogen 16 mg/dL (7-17); Calcium 7.5 mg/dL (8.4-10.2); Carbon Dioxide 30 mmol/L (22-30); Chloride 97 mmol/L (98-107); Glucose 121 mg/dL (74-99); Magnesium 1.9 mg/dL (1.6-2.3); Non-African American GFR(CKD) 27 (>60 ml/min/1.73 sqM); Potassium 3.3 mmol/L (3.5-5.1); Sodium 133 mmol/L (137-145); Total Bilirubin 0.6 mg/dL (0.2-1.3); Total Protein 3.8 g/dL (6.3-8.2)
[2024-05-17 12:20] VITALS: BP 144/68; PULSE 89; TEMP 97.8
--- NOTE | 2024-05-17 13:02 | P.DS ---
Providers Date of admission: 05/06/24 18:50 Expected date of discharge: 05/17/24 Attending physician: Joyce Galvez MD Consults: 05/06/24 18:15 Consult Physician Urgent Consulting Provider: Rossi Page Consult Reason/Comments: Acute renal failure Do you want consulting provider notified?: Yes 05/06/24 21:30 Consult Physician Urgent Consulting Provider: Chloe Faria Consult Reason/Comments: Severe sepsis Do you want consulting provider notified?: Yes 05/07/24 13:25 Consult Physician Stat Consulting Provider: Cristhian Townsend Consult Reason/Comments: Dialysis Cath Do you want consulting provider notified?: Yes 05/13/24 07:15 Consult Physician Routine Consulting Provider: Meenakshi Brown Consult Reason/Comments: abdominal pain/pancreatitis Do you want consulting provider notified?: Yes Primary care physician: Amol Stovall [facility] Course: Discharge Diagnosis: Oliguric FLORIAN, likely ATN in the setting of shock, dialysis dependent Hypervolemic hyponatremia Anemia chronic disease Acute blood loss anemia Anasarca Bilateral pleural effusion History of DVT Acute pancreatitis, likely gallstone related Leukocytosis Transaminitis Acute rhabdomyolysis Distributive shock, likely septic Hyperkalemia Lactic acidosis Anion gap metabolic acidosis Hypoglycemia in the setting of uncontrolled diabetes Hospital Course: A 69-year-old female with past medical history of difficult to control diabetes, history of DVT on Eliquis, HLD, HTN, osteoarthritis, hypothyroidism, history of hypoxic respiratory failure due to pneumonia requiring supplemental oxygen use, history of MSSA sepsis 2017, MRSA bacteremia 2017, recent UTI treated with outpatient antibiotics, who presented to the ER complaining of generalized weakness, low blood sugar, nausea, vomiting. Patient was throwing up for several days, multiple times a day, stopped on 05/05, no associated abdominal pain, bowel habit changes, fevers, chills. Patient states that she went down on her Lantus while throwing up (she is usually on 24 in the AM and 30 p.m., was taking 18 and 28 accordingly)., She is also on metformin 1000 twice daily, Ozempic 1 mg, She did have recent UTI that was treated as outpatient with oral antibiotics, she is not sure what type of antibiotic and for how long she was on it. She noted urinary frequency. ED course: Patient's blood pressure was 102/44 on admission, heart rate in 80s, afebrile initially. EKG showed QTc of 434, junctional rhythm. Chest x-ray with no acute process. CT of the abdomen and pelvis showed chronic elevation of the right hemidiaphragm and no source of infection. Kidney bladder ultrasound showed anechoic bladder, no hydronephrosis, no nephrolithiasis and masses. Lab work significant for leukocytosis 12.6, anemia hemoglobin 8.8, macrocytosis, sodium 136, potassium 5.6, bicarb 9, BUN 68, creatinine 4.09, lactate 8.3, phosphorus 5.8, ALT elevated 124 AST 119, CK 2190, trended down to 2020. Negative troponin, CRP negative, UA positive for proteinuria and hematuria, viral panel negative. Sepsis protocol was initiated, blood in the urine cultures obtained, fluid bolus given, received hyperkalemia cocktail with calcium gluconate, insulin, Lokelma. Patient has been having profound hypotension that did not respond to fluid bolus and was started on Levophed, femoral central line placed in the ER. Patient was started on broad-spectrum antibiotics with Zosyn, vancomycin, started on bicarb drip, D10 drip, Solu-Medrol. Patient had mild improvement of hyperkalemia after hyperkalemia cocktail, potassium again elevated 05/07 in the morning at 6.7, another hyperkalemia protocol given with IV insulin, calcium gluconate, bicarb pushes x 2. Despite continuous IV hydration, bicarb drip, patient continued to be profoundly acidotic with carbon dioxide trending down from 9-6, ABG showed pH of 7.14, lactic acid up to 9.7. Nephrology consulted. IR consulted for tunneled catheter placement, plan for HD 05/08. ICU consulted. 05/08 hemoglobin noted at 6.8, 1 unit of PRBC ordered, Eliquis was previously decreased to 2.5 twice daily, now on hold. Patient ultimately downgraded to internal medicine floor. Nephrology and surgery were on the case. While admitted patient was maintained on dialysis Thursday for her renal failure. Enriquez catheter in place. During her stay she developed abdominal pain. Proper CT imaging was ordered and she was found to have acute pancreatitis likely secondary to gallstones versus autoimmune. Surgery was on the case and ultimately recommended this to be handled on outpatient follow-up for her gallstones. During her stay a permacath was placed for access for M/W/F dialysis. Patient had complication with bleeding after permacath placement and was given 1 unit of packed RBCs. The bleeding has subsided hemoglobin has remained stable. Eliquis was on hold for few days but is now resumed. She is being discharged with Aranesp, Augmentin for 3 days, Lasix, calcitriol, insulin sliding scale. She is to follow-up with her PCP, nephrology, surgery, and dialysis MWF. She is being discharged to SNF at [facility]. Vital signs reviewed and stable. Physical examination: Vital signs reviewed General: non toxic, no distress, appears at stated age, obese, chronically ill- appearing, anasarca Derm: no unusual rashes/lesions, warm Head: atraumatic, normocephalic, symmetric Eyes: EOMI, anicteric sclera, pupils equal round reactive to light ENT: Nose and ears atraumatic Neck: No cervical lymphadenopathy, trachea midline, supple Mouth: no lip lesion, mucus membranes moist Cardiovascular: S1S2 reg, no murmur, positive dorsalis pedis pulse bilateral, no edema Lungs: CTA bilateral, no rhonchi, no rales, no accessory muscle use Abdominal: soft, nontender to palpation, no guarding Ext: muscle strength 3 out of 5 in all 4 extremities grossly, no gross muscle atrophy Neuro: CN II-XI grossly intact, no gross focal neuro deficits Psych: Alert, oriented to person, place, and time A total of greater than 30 minutes of time were spent preparing this complex discharge summary. Patient was discharge on May 17, 2024 at 11:14 AM. Bia Alberto MD PGY-1 IM Dictation was produced using [employer] dictation software. please excuse any grammatical, word or spelling errors. I have seen and evaluated the patient today. Discussed with the resident and agree with the residents finding and plan as documented in the resident's note. Changes highlighted in blue font. Plan - Discharge Summary Discharge Rx Participant: Yes New Discharge Prescriptions: New Darbepoetin Armond [Aranesp] 40 mcg SQ Q7D each Amoxic-Pot Clav 875-125Mg [Augmentin 875-125] 1 tab PO Q12HR 3 Days #6 tab Nystatin 100,000 Unit/gm Powd [Mycostatin Powder] 1 applic TOPICAL BID each Furosemide [Lasix] 80 mg PO Q12HR #10 tablet calcitrioL [Rocaltrol] 0.25 mcg PO Q72H cap Acetaminophen Tab [Tylenol] 650 mg PO Q6HR PRN tab PRN Reason: Mild Pain Or Fever > 100.5 INSULIN ASPART (NovoLOG) [NovoLOG (formulary)] See Protocol SQ ACHS each Continue Apixaban [Eliquis] 5 mg PO BID Folic Acid 1 mg PO DAILY Metabolism Support Vitamin B-12 500mcg 500 mcg PO DAILY Levothyroxine Sodium [Synthroid] 112 mcg PO DAILY DULoxetine HCL [Cymbalta] 30 mg PO DAILY Rosuvastatin Calcium [Crestor] 40 mg PO HS Discontinued Insulin Glargine,Hum.rec.anlog [Lantus Solostar Pen] 24 - 30 unit SQ BID metFORMIN HCL [Glucophage] 1,000 mg PO BID HYDROcodone/APAP 10-325MG [[place]ilton 10-325] 1 tab PO Q6HR PRN PRN Reason: Pain Metoprolol Tartrate [Lopressor] 25 mg PO DIRECTED amLODIPine BESYLATE/BENAZEPRIL [Lotrel 10-20 mg Capsule] 1 cap PO DAILY Insulin Aspart (Niacinamide) [Fiasp 100 Unit/ml Flextouch Pen] See Protocol SQ DIRECTED Semaglutide [Ozempic] 1 mg SQ MO Discharge Medication List Apixaban [Eliquis] 5 mg PO BID 04/24/21 [History] Folic Acid 1 mg PO DAILY 04/24/21 [History] DULoxetine HCL [Cymbalta] 30 mg PO DAILY 05/06/24 [History] Levothyroxine Sodium [Synthroid] 112 mcg PO DAILY 05/06/24 [History] Metabolism Support Vitamin B-12 500mcg 500 mcg PO DAILY 05/06/24 [History] Rosuvastatin Calcium [Crestor] 40 mg PO HS 05/06/24 [History] Acetaminophen Tab [Tylenol] 650 mg PO Q6HR PRN tab 05/17/24 [Rx] Amoxic-Pot Clav 875-125Mg [Augmentin 875-125] 1 tab PO Q12HR 3 Days #6 tab 05/17/24 [Rx] Darbepoetin Armond [Aranesp] 40 mcg SQ Q7D each 05/17/24 [Rx] Furosemide [Lasix] 80 mg PO Q12HR #10 tablet 05/17/24 [Rx] INSULIN ASPART (NovoLOG) [NovoLOG (formulary)] See Protocol SQ ACHS each 05/17/24 [Rx] Nystatin 100,000 Unit/gm Powd [Mycostatin Powder] 1 applic TOPICAL BID each 05/17/24 [Rx] calcitrioL [Rocaltrol] 0.25 mcg PO Q72H cap 05/17/24 [Rx] Follow up Appointment(s)/Referral(s): [facility] [NON-STAFF] - 1 Week Husam Pa DO [Medical Doctor] - 2 Weeks [facility], [NON-STAFF] - 1 Week Efren Sorenson DO [STAFF PHYSICIAN] - 1 Week Amol Stovall DO [Primary Care Provider] - 1-2 days Patient Instructions/Handouts: Pancreatitis (DC), Acute Kidney Injury (DC) Activity/Diet/Wound Care/Special Instructions: Dialysis [facility] [address] [place] [id number] P: [phone] Appointment Time: 10:25AM Thursday, and Thursday Discharge Disposition: TRANSFER TO SNF/ECF
--- NOTE | 2024-05-17 14:07 | P.PN ---
Subjective Progress Note Date: 05/17/24 SURGICAL PROGRESS NOTE CHIEF COMPLAINT: FLORIAN HISTORY OF PRESENT ILLNESS: Patient is lying in bed comfortably. She denies any abdominal pain. Denies any nausea or vomiting. She is tolerating diet. She is scheduled for discharge today. Afebrile. WBC 8.7 Hgb 7.1 platelets 275 LFTs trending down PHYSICAL EXAM: VITAL SIGNS: Reviewed. GENERAL: Well-developed in no acute distress. ABDOMEN: Soft. Nondistended. Mild discomfort with palpation to the mid abdomen. No right upper quadrant tenderness. No rebound or guarding. NEUROLOGIC: Alert and oriented. Cranial nerves II through XII grossly intact. ASSESSMENT: 1. Gallstone pancreatitis 2. Acute kidney injury requiring hemodialysis 3. Anemia PLAN: -Recommend low-fat, renal diet -Recommend outpatient cholecystectomy once patient improves from her acute medical problems Physician Feed Inspection Supervisor note has been reviewed by physician. Signing provider agrees with the documented findings, assessment, and plan of care. Objective - Vital Signs Vital signs: Vital Signs Temp 97.8 F 05/17/24 12:18 Pulse 89 05/17/24 12:18 Resp 16 05/17/24 12:18 BP 144/68 05/17/24 12:18 Pulse Ox 95 05/17/24 12:18 FiO2 Intake & Output 05/16/24 05/17/24 05/17/24 18:59 06:59 18:59 Intake Total 2640 180 Output Total 2400 275 300 Balance 240 -95 -300 Weight 105 kg 102 kg Intake: Oral 240 180 Hemodialysis 2400 Output: Urine 275 300 Uretheral (Enriquez) 300 Hemodialysis 400 Hemodialysis Net Amount 1999 Other: Voiding Method Indwelling Catheter Indwelling Catheter Indwelling Catheter - Labs CBC & Chem 7: 05/17/24 10:40 05/17/24 10:40 Labs: Abnormal Lab Results - Last 24 Hours (Table) 05/13/24 05/16/24 05/16/24 Range/Units 10:37 16:12 20:01 RBC (3.80-5.40) m/uL Hgb (11.4-16.0) gm/dL Hct (34.0-46.0) % RDW (11.5-15.5) % Sodium (137-145) mmol/L Potassium (3.5-5.1) mmol/L Chloride (98-107) mmol/L Creatinine (0.52-1.04) mg/dL Glucose (74-99) mg/dL POC Glucose (mg/dL) 124 H 124 H (70-110) mg/dL Calcium (8.4-10.2) mg/dL AST (14-36) U/L ALT (4-34) U/L Total Protein (6.3-8.2) g/dL Albumin (3.5-5.0) g/dL RBC Folate 914 H (280 - 791) ng/mL 05/17/24 05/17/24 05/17/24 Range/Units 06:06 10:40 10:40 RBC 2.12 L (3.80-5.40) m/uL Hgb 7.1 L (11.4-16.0) gm/dL Hct 20.9 L (34.0-46.0) % RDW 18.2 H (11.5-15.5) % Sodium 133 L (137-145) mmol/L Potassium 3.3 L (3.5-5.1) mmol/L Chloride 97 L (98-107) mmol/L Creatinine 1.91 H (0.52-1.04) mg/dL Glucose 121 H (74-99) mg/dL POC Glucose (mg/dL) 121 H (70-110) mg/dL Calcium 7.5 L (8.4-10.2) mg/dL AST 56 H (14-36) U/L ALT 112 H (4-34) U/L Total Protein 3.8 L (6.3-8.2) g/dL Albumin 2.1 L (3.5-5.0) g/dL RBC Folate (280 - 791) ng/mL 05/17/24 Range/Units 11:26 RBC (3.80-5.40) m/uL Hgb (11.4-16.0) gm/dL Hct (34.0-46.0) % RDW (11.5-15.5) % Sodium (137-145) mmol/L Potassium (3.5-5.1) mmol/L Chloride (98-107) mmol/L Creatinine (0.52-1.04) mg/dL Glucose (74-99) mg/dL POC Glucose (mg/dL) 139 H (70-110) mg/dL Calcium (8.4-10.2) mg/dL AST (14-36) U/L ALT (4-34) U/L Total Protein (6.3-8.2) g/dL Albumin (3.5-5.0) g/dL RBC Folate (280 - 791) ng/mL
--- NOTE | 2024-05-17 15:05 | P.PN ---
Subjective Progress Note Date: 05/17/24 Principal diagnosis: Renal failure. On 05/07/2024, the patient is being seen in consultation in the emergency department for hypotension and severe lactic acidosis. The patient is known to have diabetes mellitus type 2, hypertension hyperlipidemia and previous history of a DVT for which she has been maintained on anticoagulation. She is also known to have a chronic right hemidiaphragmatic paralysis. The patient came into the hospital feeling generalized weakness and she also had diminished level of consciousness and she was having episodes of hypoglycemia. Notably, the patient has been receiving a combination of medication for diabetes which included Lantus insulin, Ozempic, metformin and short acting insulin for blood sugars controlled. The patient was started on D5 water and subsequent blood work showed severe metabolic derangements. The patient's serum bicarb was at 8. The patient's lactic acid level was initially at 8.5 and potassium level was at 6.1. She did have an anion gap of 21 at the time of the admission. At the same time, her calcium level was 8, 9 she had a rhabdomyolysis with a CPK of 2190, troponins were negative, procalcitonin level was at 0.8. UA showed +2 proteins, and acetone was negative. The white cell count was at 12.6 with a hemoglobin of 8.8 and a platelet count of 353. The patient received a total of 4.5 L of IV fluids in the emergency department and subsequently she was started on pressors and currently norepinephrine is running at 0.16 mcg/kg/min. Triple-lumen catheter was inserted. Subsequently, the patient was switched to a bicarb infusion at rate of 125 cc an hour. Most recent labs showed ongoing acidosis wi th a serum bicarb of 6, lactic acid remains at 9.1. There has been some modest improvement in the kidney function as initial creatinine was at 4.09 and the creatinine is down to 3.81. Potassium level this morning was at 6.7. I gave additional bicarb, D50 insulin and calcium to this patient and informed nephrology. She may need potentially dialysis as the patient may have severe lactic acidosis secondary to metformin. She is being monitored very closely. Blood gas was also done that showed a pH of 7.14 with a pCO2 of 24 and pO2 of 97 this was an FiO2 of 26%. Ultrasound of the kidneys shows no evidence of any hydronephrosis. CAT scan abdomen chest abdomen and pelvis shows right hemidia phragmatic elevation, otherwise no other significant abnormalities. Despite all this abnormalities, the patient seems to be arousable and communicating. She seems to be appropriate. She is on 1 and half liters of oxygen by nasal cannula with a pulse ox of 95%. On 05/08/2024, the patient is being seen for a follow-up. She presented to us with severe metabolic and lactic acidosis. She also had an acute kidney injury. This is attributed to severe intravascular volume depletion and metformin induced lactic acidosis. The patient underwent hemodialysis yesterday. An emergent dialysis was performed as the patient was not producing much of urine output and the patient was also hyperkalemic along with severe metabolic acidosis. She also had severe lactic acidosis. On today's evaluation, the patient is feeling better. Hemodialysis was completed and a second session to be done today. Labs have improved compared to yesterday. Sodium is at 133, potassium is down to 4, bicarb is at 18, BUN is 40 with a creatinine of 2.7. Lactic acid level has been downtrending and it peaked at 12.8 and dropped down to 5.8. Awake and alert and communicating. Remains on a bicarb infusion which is running at 75 cc an hour. She is also on norepinephrine at 0.13 mcg/kg/min. She has a right forearm femoral hemodialysis catheter and left femoral triple- lumen catheter. Hemoglobin dropped down to 6.8 and the patient is going to receive a unit of packed RBC. She is on 2 L of oxygen by nasal cannula. Awake and alert and communicating. Patient was seen today on 05/09/2024, remains in the ICU, on 2 L nasal cannula, off norepinephrine for the last 12 hours, patient is on hemodialysis last hemod ialysis was 05/07. Fluid is at 75 cc/h 0.9 normal saline, patient is lethargic but alert, able to answer questions, urine output remains marginal between 10 to 20 cc/h remains on Zosyn. Patient is steadily improving, her labs showed relatively normal CBC, electrolytes are normal bicarb is 27 BUN is 38 creatinine 2.84 procalcitonin level on admission was 0.83, blood cultures remain negative Seen today on 05/10/2024 remains in the ICU, however she is an overflow in the ICU. Patient is hemodynamically stable, temp is 98.4, blood pressure 133/72 and O2 sat is 96% on 2 L nasal cannula. IV fluid is running at 75 cc/h/0.9 normal saline patient remains on Zosyn and on Eliquis I have discontinued her Solu- Cortef which was started empirically upon admission when she came in with hypotension. Mentation is still slow but seems to be fairly appropriate. She knew where she was and she knew the name of the president. Labs from today showed relatively normal CBC except for hemoglobin of 7.5 low potassium of 3.1 BUN is 26 creatinine 2.27, Steadily improving, patient came in with a potassium of 4.09 Patient was seen today on 05/13/2024, patient continues to do fairly well, on 2 L nasal cannula, being followed by nephrology for hemodialysis. She is hemodynamically stable, O2 sat is 98% on 2 L she has no active pulmonary symptoms. WBC count is 7.5 hemoglobin 7.1 electrolytes are normal however her BUN is 27 creatinine 2.47, liver enzymes were noted to be elevated with AST of 151 ALT of 240 and continues to have CPK slightly elevated at 529. CT of abdomen and pelvis done yesterday, raised the possibility of acute pancreatitis and ascites with diffuse subcutaneous edema. Hand surgery was consulted, ultrasound of the gallbladder showed evidence of gallstones, and felt to have most likely gallstone pancreatitis, recommending observation for now, in the meantime the patient is still undergoing hemodialysis as per nephrology for her acute kidney injury. Patient is kept n.p.o. for now because of her pancreatitis. Surgery is on the case. Patient was seen today on 05/14/2024, on 2 L nasal cannula, patient had dialysis catheter placed by vascular surgery today in the right subclavian area., Patient denies any shortness of breath or cough or wheezing, obviously the patient will need more hemodialysis her labs today show WBC count of 8.5 hemoglobin 7.6 electrolytes are normal BUN is 16 creatinine 1.81, patient remains oliguric Seen today on 05/15/2024, patient is doing fairly well, patient is on hemodialysis, no further bleeding noted from the permacath which was placed ye sterday, patient remains oligoanuric, nephrology is considering starting again her hemodialysis her initial hemodialysis was on May 07/2025. And her permacath was placed on 05/14. Clearly the patient had acute kidney injury secondary to ATN secondary to shock and has been noticing steady rise in her creatinine since admission. I believe nephrology is planning hemodialysis tomorrow. And she is on Lasix at 80 mg daily. Labs today show WBC count of 10.3 hemoglobin of 8 electrolytes are normal BUN is 22 creatinine 2.25, chest x- ray yesterday showed bilateral pleural effusions and evidence of fluid overload/pulmonary edema related to her renal failure. Progress note dated May 16, 2024. 69-year-old female seen today in room 370. Patient is currently receiving hemodialysis. The patient is on 2 L of oxygen by nasal cannula. No IV fluids. The patient's Zosyn was converted to Unasyn by the primary service. The patient states that she is feeling better, and is in no acute distress. She denies any shortness of breath, or difficulty breathing. She denies any chest pain. Labs are reviewed and reveals a white count of 9.2, hemoglobin 8.3, hematocrit 25.6, and a platelet count of 213,000. Sodium 132, potassium 3.7, chlorides 100, CO2 24, BUN 27, creatinine 2.54. Glucose is 127. Calcium 7.2. Albumin 2.3. Cultures are negative. Progress note dated May 17, 2024. 69-year-old female seen today in room 370. Currently, the patient is resting comfortably in bed. She is actually laying flat in bed. She is on room air. She is not receiving any IV fluids. She did have hemodialysis yesterday. Labs today include a white count 8.7, hemoglobin 7.1, hematocrit 20.9, and a platelet count of 275,000. Sodium 133, potassium 3.3, chlorides 97, CO2 30, BUN 16, creatinine 1.91. Glucose is 139. Albumin is 2.1. Objective - Vital Signs Vital signs: Vital Signs Temp 97.8 F 05/17/24 12:18 Pulse 89 05/17/24 14:00 Resp 16 05/17/24 14:00 BP 144/68 05/17/24 12:18 Pulse Ox 95 05/17/24 12:18 FiO2 Intake & Output 05/16/24 05/17/24 05/17/24 18:59 06:59 18:59 Intake Total 2640 180 Output Total 2400 275 300 Balance 240 -95 -300 Weight 105 kg 102 kg Intake: Oral 240 180 Hemodialysis 2400 Output: Urine 275 300 Uretheral (Enriquez) 300 Hemodialysis 400 Hemodialysis Net Amount 1999 Other: Voiding Method Indwelling Catheter Indwelling Catheter Indwelling Catheter - Exam No acute distress, oriented 3. No respiratory distress. Currently on room air. HEENT examination is grossly unremarkable. Mucous membranes are moist. No oral lesions. Neck supple. Full range of motion. No adenopathy thyromegaly or neck vein distention. Cardiovascular examination reveals regular rhythm rate. S1-S2 normal. No S3 or S4. No discernible murmur noted. Lungs reveal clear breath sounds. Breath sounds are equal bilaterally. No adventitious lung sounds including wheezes rhonchi or crackles. Abdomen soft bowel sounds are heard. No masses or tenderness. Extremities some edema. No cyanosis or clubbing. Chronic venous stasis changes are noted. Skin is without rash or lesion. Neurologic examination is brief but nonfocal. - Labs CBC & Chem 7: 05/17/24 10:40 05/17/24 10:40 Labs: Abnormal Lab Results - Last 24 Hours (Table) 05/13/24 05/16/24 05/16/24 Range/Units 10:37 16:12 20:01 RBC (3.80-5.40) m/uL Hgb (11.4-16.0) gm/dL Hct (34.0-46.0) % RDW (11.5-15.5) % Sodium (137-145) mmol/L Potassium (3.5-5.1) mmol/L Chloride (98-107) mmol/L Creatinine (0.52-1.04) mg/dL Glucose (74-99) mg/dL POC Glucose (mg/dL) 124 H 124 H (70-110) mg/dL Calcium (8.4-10.2) mg/dL AST (14-36) U/L ALT (4-34) U/L Total Protein (6.3-8.2) g/dL Albumin (3.5-5.0) g/dL RBC Folate 914 H (280 - 791) ng/mL 05/17/24 05/17/24 05/17/24 Range/Units 06:06 10:40 10:40 RBC 2.12 L (3.80-5.40) m/uL Hgb 7.1 L (11.4-16.0) gm/dL Hct 20.9 L (34.0-46.0) % RDW 18.2 H (11.5-15.5) % Sodium 133 L (137-145) mmol/L Potassium 3.3 L (3.5-5.1) mmol/L Chloride 97 L (98-107) mmol/L Creatinine 1.91 H (0.52-1.04) mg/dL Glucose 121 H (74-99) mg/dL POC Glucose (mg/dL) 121 H (70-110) mg/dL Calcium 7.5 L (8.4-10.2) mg/dL AST 56 H (14-36) U/L ALT 112 H (4-34) U/L Total Protein 3.8 L (6.3-8.2) g/dL Albumin 2.1 L (3.5-5.0) g/dL RBC Folate (280 - 791) ng/mL 05/17/24 Range/Units 11:26 RBC (3.80-5.40) m/uL Hgb (11.4-16.0) gm/dL Hct (34.0-46.0) % RDW (11.5-15.5) % Sodium (137-145) mmol/L Potassium (3.5-5.1) mmol/L Chloride (98-107) mmol/L Creatinine (0.52-1.04) mg/dL Glucose (74-99) mg/dL POC Glucose (mg/dL) 139 H (70-110) mg/dL Calcium (8.4-10.2) mg/dL AST (14-36) U/L ALT (4-34) U/L Total Protein (6.3-8.2) g/dL Albumin (3.5-5.0) g/dL RBC Folate (280 - 791) ng/mL Assessment and Plan Assessment: Acute hypovolemic shock. Acute kidney injury, requiring hemodialysis. Acute lactic acidosis, secondary to dehydration, and possibly metformin. Acute hyperkalemia, secondary to FLORIAN. Acute rhabdomyolysis, improved. Acute on chronic anemia. Type 2 diabetes mellitus. Chronic right hemidiaphragm paralysis. Acute metabolic encephalopathy. History of hypertension. History of hyperlipidemia. Prior history of DVT. History of COPD. History of hypothyroidism. Acute gallstone pancreatitis. Plan: Plan dated May 16, 2024. The patient is seen today in room 370. She is receiving hemodialysis. Currently, she is on O2 by nasal cannula 2 L. She states that her breathing is stable, she denies all respiratory issues. She is not receiving any IV fluids. The primary service changed her Zosyn to Unasyn. Her examination is otherwise normal. She does have some mild lower extremity edema, some chronic venous stasis changes, to the lower extremities. We will continue to follow make recommendations. All labs, x-rays, and medications are reviewed. Plan dated May 17, 2024. The patient is seen today in room 370. The patient is currently not receiving any IV fluids. She is not requiring any supplemental oxygen. The patient's vital signs are stable. She is awake and alert. She is laying flat in bed, without any distress. The patient did have hemodialysis yesterday. Labs, x- rays, and medications are reviewed. The patient continues on Unasyn. We will continue to follow. Prognosis is guarded. Time with Patient: Less than 30
--- NOTE | 2024-05-17 22:46 | P.PN ---
Subjective Patient is seen for follow-up for acute kidney injury and severe metabolic acidosis from lactic acidosis from metformin. Started on hemodialysis this admission. Patient remains hemodialysis dependent. Urine output is poor. Around 250 mL of urine charted for 24 hours. No significant complaints today. Objective - Vital Signs Vital signs: Vital Signs Temp 97.8 F 05/17/24 12:18 Pulse 89 05/17/24 14:00 Resp 16 05/17/24 14:00 BP 144/68 05/17/24 12:18 Pulse Ox 95 05/17/24 12:18 FiO2 Intake & Output 05/17/24 05/17/24 05/18/24 06:59 18:59 06:59 Intake Total 180 Output Total 275 300 Balance -95 -300 Weight 102 kg Intake: Oral 180 Output: Urine 275 300 Uretheral (Enriquez) 300 Other: Voiding Method Indwelling Catheter Indwelling Catheter - Exam Patient is comfortable awake no acute distress Communicating fairly normally Examination of the heart S1 and S2 Examination of the lungs bilateral breath sounds are heard Abdomen is soft nontender Examination of lower extremities shows chronic skin changes. Edema noted 1+ bilaterally [employer] exam grossly intact - Labs CBC & Chem 7: 05/17/24 10:40 05/17/24 10:40 Labs: Abnormal Lab Results - Last 24 Hours (Table) 05/17/24 05/17/24 05/17/24 Range/Units 06:06 10:40 10:40 RBC 2.12 L (3.80-5.40) m/uL Hgb 7.1 L (11.4-16.0) gm/dL Hct 20.9 L (34.0-46.0) % RDW 18.2 H (11.5-15.5) % Sodium 133 L (137-145) mmol/L Potassium 3.3 L (3.5-5.1) mmol/L Chloride 97 L (98-107) mmol/L Creatinine 1.91 H (0.52-1.04) mg/dL Glucose 121 H (74-99) mg/dL POC Glucose (mg/dL) 121 H (70-110) mg/dL Calcium 7.5 L (8.4-10.2) mg/dL AST 56 H (14-36) U/L ALT 112 H (4-34) U/L Total Protein 3.8 L (6.3-8.2) g/dL Albumin 2.1 L (3.5-5.0) g/dL 05/17/24 Range/Units 11:26 RBC (3.80-5.40) m/uL Hgb (11.4-16.0) gm/dL Hct (34.0-46.0) % RDW (11.5-15.5) % Sodium (137-145) mmol/L Potassium (3.5-5.1) mmol/L Chloride (98-107) mmol/L Creatinine (0.52-1.04) mg/dL Glucose (74-99) mg/dL POC Glucose (mg/dL) 139 H (70-110) mg/dL Calcium (8.4-10.2) mg/dL AST (14-36) U/L ALT (4-34) U/L Total Protein (6.3-8.2) g/dL Albumin (3.5-5.0) g/dL Assessment and Plan Assessment: 1. Acute kidney injury, ATN from severe hypotension, oliguric. UA shows 2+ protein large blood. No obstruction noted on ultrasound of the kidneys. Unlikely to be secondary to underlying vasculitis. Serologies negative except for C3 which is slightly low. 2. Severe anion gap metabolic acidosis associated with lactic acidosis and acute kidney injury. Improved with dialysis 3. Lactic acidosis secondary to hypotension, hypoperfusion and use of metformin. 4. Hyperkalemia associated with acute kidney injury and severe metabolic acidosis, improved 5. Anemia rule out iron deficiency 6. Mental status changes secondary to hypoglycemia and hypotension 7. Chronic kidney disease stage I secondary to diabetic kidney disease with significant proteinuria noted since 2017. GFR is fairly well-preserved with previous creatinine at 0.8 on 10/22/2023. Plan: Continue with hemodialysis as outpatient.
== END 2024-05-17 15:30 | DRG 871 ==
LOC: EC 13:52 → 3SCARD 18:50 → 2SICU 21:37 → 3SCARD 05-10 20:29
PROVIDERS: ADMIT Internal Medicine; ATTEND Internal Medicine
PROC: 3E033XZ Introduction of Vasopressor into Peripheral Vein, Percutaneous Approach (ICD-10-PCS; 2024-05-06)
PROC: 5A1D70Z Performance of Urinary Filtration, Intermittent, Less than 6 Hours Per Day (ICD-10-PCS; principal; 2024-05-07 14:31)
PROC: 30233N1 Transfusion of Nonautologous Red Blood Cells into Peripheral Vein, Percutaneous Approach (ICD-10-PCS; 2024-05-08)
PROC: 06HM33Z Insertion of Infusion Device into Right Femoral Vein, Percutaneous Approach (ICD-10-PCS; 2024-05-14)
PROC: B51B1ZA Fluoroscopy of Right Lower Extremity Veins using Low Osmolar Contrast, Guidance (ICD-10-PCS; 2024-05-14)
PROC: 0JH63XZ Insertion of Tunneled Vascular Access Device into Chest Subcutaneous Tissue and Fascia, Percutaneous Approach (ICD-10-PCS; 2024-05-14)
PROC: 02HV33Z Insertion of Infusion Device into Superior Vena Cava, Percutaneous Approach (ICD-10-PCS; 2024-05-14)
PROC: B5181ZA Fluoroscopy of Superior Vena Cava using Low Osmolar Contrast, Guidance (ICD-10-PCS; 2024-05-14)
PROC: B548ZZA Ultrasonography of Superior Vena Cava, Guidance (ICD-10-PCS; 2024-05-14)
DX: A41.9 Sepsis, unspecified organism (principal); G92.8 Other toxic encephalopathy; N17.0 Acute kidney failure with tubular necrosis; R57.8 Other shock; R65.21 Severe sepsis with septic shock; R57.1 Hypovolemic shock; K85.10 Biliary acute pancreatitis without necrosis or infection; M62.82 Rhabdomyolysis; E11.22 Type 2 diabetes mellitus with diabetic chronic kidney disease; I12.9 Hypertensive chronic kidney disease with stage 1 through stage 4 chronic kidney disease, or unspecified chronic kidney disease; E03.9 Hypothyroidism, unspecified; E66.9 Obesity, unspecified; J44.9 Chronic obstructive pulmonary disease, unspecified; D63.1 Anemia in chronic kidney disease; K76.0 Fatty (change of) liver, not elsewhere classified; D62 Acute posthemorrhagic anemia; E87.1 Hypo-osmolality and hyponatremia; E87.21 Acute metabolic acidosis; R18.8 Other ascites; N39.0 Urinary tract infection, site not specified; Z68.41 Body mass index [BMI] 40.0-44.9, adult; T82.838A Hemorrhage due to vascular prosthetic devices, implants and grafts, initial encounter; Z11.52 Encounter for screening for COVID-19; E83.51 Hypocalcemia; D53.9 Nutritional anemia, unspecified; D75.89 Other specified diseases of blood and blood-forming organs; E11.649 Type 2 diabetes mellitus with hypoglycemia without coma; E11.65 Type 2 diabetes mellitus with hyperglycemia; E78.5 Hyperlipidemia, unspecified; E86.0 Dehydration; E87.5 Hyperkalemia; E87.6 Hypokalemia; E87.70 Fluid overload, unspecified; F41.9 Anxiety disorder, unspecified; J98.6 Disorders of diaphragm; K21.9 Gastro-esophageal reflux disease without esophagitis; K80.20 Calculus of gallbladder without cholecystitis without obstruction; N18.1 Chronic kidney disease, stage 1; T38.3X5A Adverse effect of insulin and oral hypoglycemic [antidiabetic] drugs, initial encounter; Z74.01 Bed confinement status; Z79.01 Long term (current) use of anticoagulants; Z79.4 Long term (current) use of insulin; Z79.84 Long term (current) use of oral hypoglycemic drugs; Z79.890 Hormone replacement therapy; Z79.899 Other long term (current) drug therapy; Z86.19 Personal history of other infectious and parasitic diseases; Z86.14 Personal history of Methicillin resistant Staphylococcus aureus infection; Z90.710 Acquired absence of both cervix and uterus; Z87.440 Personal history of urinary (tract) infections; Z86.718 Personal history of other venous thrombosis and embolism; Z88.1 Allergy status to other antibiotic agents; I87.8 Other specified disorders of veins
CPT/HCPCS: 36415; 36430; 36556; 36558; 36600; 71045; 71046; 71250; 74018; 74176; 74177; 76705; 76770; 76937; 77001; 80048; 80053; 80061; 80202; 80306; 81001; 82009; 82306; 82550; 82565; 82607; 82728; 82747; 82787; 82805; 83010; 83516; 83540; 83550; 83605; 83615; 83690; 83735; 83970; 84100; 84132; 84145; 84443; 84484; 85025; 85027; 85045; 85610; 85730; 86038; 86140; 86160; 86225; 86334; 86335; 86706; 86803; 86850; 86900; 86901; 86920; 87040; 87086; 87340; 87636; 90935; 93005; 93970; 94760; 96361; 96365; 96366; 96367; 96375; 96376; 99291

== ENCOUNTER → 2024-08-05 | Day surgery (SDC) | payer MEDICARE, OTHER ==
[2024-08-04 12:11] VITALS: BMI 25.4
[~2024-08-05] MED LIST: LACTATED RINGERS 1,000 ML IV SCH; LIDOCAINE 1% INJ 10MG/ML (20 ML MDV) ONE; PHENYLEPHRINE-0.9% NACL SYG 1,000 MCG/10 ML SYRINGE ONE; PROPOFOL 10 MG/ML 20 ML VIAL IV ONE
[2024-08-05] MEDS: LACTATED RINGERS 1,000 ML IV ONE (14:35)
[2024-08-05 14:38] VITALS: RESP 16; TEMP 99
[2024-08-05 14:38] LABS: Glucose,Whole Blood 174 mg/dL (70-110)
[2024-08-05] MEDS: NA PHOS,M-B/NA PHOS,DI-BA 133 ML ENEMA RECTAL STA (15:08)
--- NOTE | 2024-08-05 16:10 | P.PCN ---
Date of Procedure: 08/05/24 Procedure(s) Performed: Brief history: Patient is a pleasant 69-year-old white female scheduled for an elective upper endoscopy as well as colonoscopy as a part of evaluation of severe symptomatic anemia with a hemoglobin of 6.5 g/dL, Hemoccult positive stool and progressive weight loss of 60 pounds in the last 3 months duration Procedure performed: Esophagogastroduodenoscopy with biopsy Colonoscopy with snare polypectomy Preoperative diagnosis: Anemia/Hemoccult positive stool/progressive weight loss Anesthesia: MAC Procedure: After informed consent was obtained from the patient was brought into the endoscopy unit and IV sedation was administered by anesthesia under continuous monitoring. Initially upper endoscopy was done. The Olympus GF 160 video endoscope was inserted inserted into the mouth and esophagus intubated without any difficulty and was gradually advanced into the stomach and duodenum and carefully examined. The bulb and second part of the duodenum appeared normal. The scope was then withdrawn into the stomach adequately insufflated with air and upon careful examination the antrum and body had mild diffuse gastritis but no evidence of erosions or ulcerations. Biopsies were done from this area. Mucosa of the, cardia and fundus appeared normal. The scope was then withdrawn into the esophagus. The GE junction was located at 40 cm to the incisors. It appeared regular with no erythema erosions or ulcerations. Rest of the esophagus appeared normal. Patient tolerated the procedure well. At this time the patient continued to remain sedation. Initial digital rectal examination was normal. Olympus CF 160 video colonoscope was then inserted into the rectum and gradually advanced to the cecum without any difficulty. Careful examination was performed as the scope was gradually being withdrawn. The prep was poor in some areas of the colon. The cecum, appeared normal. The ascending colon there was a 2 cm broad-based polyp removed by piecemeal snare polypectomy and complete polypectomy accomplished. Rest of the ascending colon, transverse colon, descending colon, sigmoid colon and rectum appeared normal. Retroflexion was performed in the rectum and no lesions were noted. Patient tolerated the procedure well. Impression: 1. Upper endoscopy revealed mild diffuse gastritis but no erosions or ulcerations and small hiatal hernia 2. Colonoscopy revealed 2 cm descending colon biopsies with snare polypectomy and the rest of the colon appeared normal Recommendations: Findings of this examination were discussed with the patient as well as her family. She was advised to follow-up with the biopsy results. If the biopsy reveals adenoma she can have repeat colonoscopy in 3 years.
[2024-08-05 16:30] LABS: Glucose,Whole Blood 157 mg/dL (70-110)
[2024-08-05 16:38] VITALS: BP 142/71; PULSE 83
== END ==
LOC: ORWHC2ENDO 13:51
PROVIDERS: ATTEND Internal Medicine Gastroenterology
DX: K29.50 Unspecified chronic gastritis without bleeding (principal); D12.2 Benign neoplasm of ascending colon; D64.9 Anemia, unspecified; K44.9 Diaphragmatic hernia without obstruction or gangrene; I10 Essential (primary) hypertension; E78.5 Hyperlipidemia, unspecified; E11.9 Type 2 diabetes mellitus without complications; E07.9 Disorder of thyroid, unspecified; N28.9 Disorder of kidney and ureter, unspecified; Z79.01 Long term (current) use of anticoagulants; Z79.84 Long term (current) use of oral hypoglycemic drugs; Z79.899 Other long term (current) drug therapy; Z90.710 Acquired absence of both cervix and uterus
CPT/HCPCS: 88305; 45385; 43239; J2003; J2704; J2371